=== PATIENT | male | born 1950 | race Caucasian/White ===

== ENCOUNTER 2016-07-18 16:50 | Emergency (ER) | payer OTHER, MEDICARE ==
[~2016-07-18] VITALS: Ht 180.3 cm; Wt 95.3 kg
[~2016-07-18 16:50] MED LIST: ACYCLOVIR400 M1 PO; ASPIRIN EC81 M1 PO; ATIVAN0.5 M1 PO; ATIVAN1 M1 PO; ATORVASTATIN CA20 M1 PO; AUGMENTIN 875-1 EACH PO; CALCIUM CARBON200 MG PO; CEPHALEXIN500 M3 PO; CHLORDIAZEPOXID25 M3 PO; COUMADIN4 M1 PO; COUMADIN5 M2 PO; COUMADIN6 M1 PO; DIFLUCAN100 M1 PO; DULOXETINE HCL60 MG PO; FOLIC ACID1 M1 PO; FUROSEMIDE20 M1 PO; GABAPENTIN300 M2 PO; HYDRALAZINE HCL25 M1 PO; HYDRALAZINE HCL50 M1 PO; IRON SUPPLEMEN325 MG PO; LEVEMIR100 UNIT/1 SC; LOSARTAN POTAS100 M1 PO; LOVENOX100 MG/1 M SC; LOVENOX80 MG/0.1 SC; MIRALAX119 GM PO; MORPHINE SULFAT30 M3 PO; NIFEDIPINE ER30 M2 PO; NITROGLYCERIN1 EACH TOP; OMEPRAZOLE20 M2 PO; OXYCODONE HCL15 M1 PO; ROXICODONE15 M1 PO; SENNA PLUS TAB1 EACH PO; SYMBICORT 16010.2 GM INH; TAMSULOSIN HCL0.4 M1 PO; TOPROL XL25 M1 PO; TRAZODONE HCL150 M1 PO; VENTOLIN HFA18 GM INH; VITAMIN B-1100 MG PO; VITAMIN D-32000 UNIT PO; VITAMIN E400 UNI1 PO; WARFARIN SODIUM1 M1 PO
--- NOTE | 2016-07-18 19:37 | ED GENERAL ADULT ---
History of Present Illness General Chief Complaint: Dyspnea (COPD, CHF, Other) Stated Complaint: BIBA FOR EXERTIONAL SOB SINCE MAY Source: patient Exam Limitations: no limitations Vital Signs & Intake/Output Vital Signs & Intake/Output Vital Signs Date Time Temp Pulse Resp B/P Pulse O2 O2 Flow FiO2 Ox Delivery Rate 07/19 1242 98.2 80 16 135/76 07/19 1026 91 140/92 07/19 1026 91 140/92 07/19 1026 91 140/92 07/19 1024 98.1 91 20 140/92 07/19 1024 98.1 91 20 140/92 98 Room Air Room Air 07/19 0824 97.4 84 15 162/104 07/19 0824 97.4 84 15 162/104 97 Room Air Room Air 07/19 0624 97.0 83 18 174/94 07/19 0619 97.0 86 18 174/94 98 Room Air 07/19 0246 99.3 97 20 160/100 07/19 0246 99.3 97 20 160/100 97 Room Air 07/19 0000 99.8 83 18 180/90 07/19 0000 99.8 83 18 180/90 97 Room Air 07/18 2147 98.4 89 18 198/96 07/18 2135 98.4 89 18 198/96 07/18 2135 97.8 89 18 198/96 97 Room Air 07/18 1930 196/94 07/18 1924 94 Room Air 07/18 1712 97.1 82 18 204/97 94 Room Air ED Intake and Output 07/19 0000 07/18 1200 Intake Total 0 Output Total Balance 0 Intake, Oral 0 Patient 210 lb Weight Allergies Coded Allergies: NO KNOWN ALLERGIES (06/07/16) Reconcile Medications Albuterol Sulfate (Ventolin Hfa) 90 MCG HFA.AER.AD 2 PUF INH Q4-6 PRN PRN COPD (Reported) Apixaban (Eliquis) 5 MG TABLET 1 TAB PO BID BLOOD THINNER (Reported) Aspirin (Ecotrin*) 81 MG TABLET.DR 1 TAB PO DAILY HEART/BLOOD (Reported) Atorvastatin Calcium 20 MG TABLET 1 TAB PO DAILY CHOLESTEROL (Reported) Budesonide/Formoterol Fumarate (Symbicort 160-4.5 Mcg Inhaler) 10.2 GM HFA.AER.AD 2 PUF INH BID RESPIRATORY (Reported) Calcium Carbonate 200 MG CALCIUM (500 MG) TAB.CHEW 500 MG PO DAILY High phosphorus level Cholecalciferol (Vitamin D3) (Vitamin D-3) 2,000 UNIT TABLET 1 TAB PO DAILY Supplement Duloxetine HCl 60 MG CAPSULE.DR 1 CAP PO QAM depression (Reported) Duloxetine Hydrochloride (Cymbalta) 30 MG CAPSULE.DR 1 CAP PO QPM DEPRESSION (Reported) Folic Acid 1 MG TABLET 1 TAB PO DAILY OTHER Gabapentin 300 MG CAPSULE 2 CAP PO TID NERVE PAIN (Reported) Hydralazine HCl 25 MG TABLET 1 TAB PO BID BP (Reported) Insulin Detemir (Levemir) 100 UNIT/ML VIAL 14 UNITS SC DAILY DM (Reported) Lorazepam 0.5 MG TABLET 1 TAB PO BID ANXIETY (Reported) Metoprolol Succ XL (Toprol XL) 25 MG TAB.ER.24H 1 TAB PO DAILY BP (Reported) Oxycodone HCl (Roxicodone) 15 MG TABLET 1 TAB PO Q4P PRN Severe pain Polyethylene Glycol 3350 (Miralax) 17 GRAM/DOSE POWDER 17 GM PO DAILY PRN CONSTIPATION Sennosides/Docusate Sodium (Senna Plus Tablet) 8.6 MG-50 MG TABLET 2 TAB PO DAILY PRN CONSTIPATION Sodium Bicarbonate 650 MG TABLET 1 TAB PO BID UNKNOWN (Reported) Tamsulosin HCl 0.4 MG CAP.ER.24H 1 CAP PO DAILY PROSTATE (Reported) Thiamine HCl (Vitamin B-1) 100 MG TABLET 1 TAB PO DAILY SUPPLEMENT (Reported) Trazodone HCl 150 MG TABLET 1 TAB PO QPM SLEEP Vitamin E (Dl,Tocopheryl Acet) (Vitamin E) 400 UNIT CAPSULE 2 CAP PO DAILY SUPPLEMENT (Reported) Triage Note: PT TO ER VIA AMBULANCE WITH COMPLAINTS OF INCREASED SOB, O2 SAT 94 % ON RA, DENIES CP. STATES THAT HE HAS HISTORY OF CHF. PT ALSO STATES HTAT HE IS OUT OF HIS PAIN MEDS AND HAS AN APPOINTMENT WITH SURGEON ON MONDAY. Triage Nurses Notes Reviewed? yes HPI: This patient is a 66 year old male with a past medical history including alcohol dependence, atrial fibrilation, and hyptertension who presented for a chief complaint of, "I ran out of my pain medication." The patient reported that he was taking 15mg of oxycodone for back pain, knee pain, and phantom leg pain. He reported that his medication is prescribed by his primary care physician as well has his doctor at [facility]. He reported that he was going to pain mangement in [place], but stated, "I don't want to go there anymore, so my doctor is trying to get me into pain mangement here." He reported that he ran out of medication 3 days ago. Also reported, "I went on a rainey last night and drank a lot of vodka." He reported he had alcohol withdrawal seizures several years ago. He reported nausea and one episode of vomiting yeaterday due to the drinking. He reported shaking today and requested Ativan. Patient also reported some shortness of breath, but reported, "I have CHF and all that so it's normal." Denied fevers, chills, chest pain, palpitations, jaw pain, arm pain, or any other associated symptoms. (EVER RODRIGUEZ PA-C) Past History Travel History Traveled to [place] past 21 day No Medical History Any Pertinent Medical History? 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 FH: diabetes mellitus FH: stroke FHx: prostate cancer PATERNAL GRANDMOTHER, ; Cause: Colon cancer. MOTHER, , Age 87; Cause: Old age. Hx Contributory? No (EVER RODRIGUEZ PA-C) Review of Systems Review of Systems Constitutional: Reports: no symptoms. EENTM: Reports: no symptoms. Respiratory: Reports: see HPI. Cardiovascular: Reports: no symptoms. GI: Reports: see HPI. Genitourinary: Reports: no symptoms. Musculoskeletal: Reports: see HPI. Skin: Reports: no symptoms. Neurological/Psychological: Reports: no symptoms. All Other Systems: Reviewed and Negative (EVER RODRIGUEZ PA-C) Physical Exam Physical Exam General Appearance: well developed/nourished, no apparent distress, alert, awake Comments: Well-developed well-nourished person in no acute distress HEENT: Normal EENT exam, head normocephalic, moist mucous membranes PERRLA bilaterally Neck: Supple, no lymphadenopathy Back: Normal inspection. No midline tenderness Cardiovascular: Irregularly Irregular. No murmurs Respiratory: Chest nontender. No respiratory distress. Scattered rhonchi at the bases. No wheezes or rales Abdomen: Soft, nontender and nondistended Extremity: Normal and equal pulses. Neuro: Alert oriented x3, cranial nerves II through XII grossly intact. Skin: No appreciable rash on exposed skin, skin is warm and dry. Psych: Mood and affect is normal (EVER RODRIGUEZ PA-C) Core Measures ACS in differential dx? No CVA/TIA Diagnosis: No Severe Sepsis Present: No Septic Shock Present: No ([place] ARCEO,WILBERT Gao) Progress Differential Diagnoses I considered the following diagnoses in my evaluation of the patient: [atrial fibrillation, ACS, PE, DVT, alcohol intoxication, alcohol withdrawal, drug overdose, drug withdrawal, CHF, copd] Plan of Care: Orders Procedure Date/time Status Regular Diet 07/19 B Active ED CRISIS PSYCH CONSULT 07/19 0315 Active Pathway - chart 07/18 2115 Active ETHANOL 07/18 1935 Complete CIWA 07/18 1922 Active URINE DRUGS OF ABUSE 07/18 1922 Complete TROPONIN LEVEL 07/18 1914 Complete MAGNESIUM 07/18 1914 Complete COMPREHENSIVE METABOLIC PANEL 07/18 1914 Complete CBC WITHOUT DIFFERENTIAL 07/18 1914 Complete B-TYPE NATRIURETIC PEP (BNP) 07/18 1914 Complete EKG 07/18 1652 Active Current Medications Sig/Avery Start time Last Medication Dose Stop Time Status Admin Lorazepam 0.5 MG ONCE 07/23 0000 AC (Ativan) 07/23 0001 Lorazepam 0.5 MG Q6H 07/22 0000 AC (Ativan) 07/22 1801 Lorazepam 0.5 MG ONCE ONE 07/21 1800 AC (Ativan) 07/21 1801 Lorazepam 1 MG Q6H 07/21 0000 AC (Ativan) 07/21 1201 Lorazepam 1.5 MG Q12H 07/20 0600 AC (Ativan) 07/20 1801 Lorazepam 1 MG Q12H 07/20 0000 AC (Ativan) 07/20 1201 Lorazepam 2 MG Q2P PRN 07/18 2129 AC (Ativan) Lorazepam 1 MG Q2P PRN 07/18 2129 AC (Ativan) Laboratory Tests 07/19/16 0105: Urine Opiates Screen < 100.00, Methadone Screen 49, Barbiturate Screen < 60, Ur Phencyclidine Scrn < 6.00, Amphetamines Screen < 100, U Benzodiazepines Scrn < 85, Urine Cocaine Screen < 50, Urine Cannabis Screen < 5.00 07/18/16 193: Anion Gap 16, Estimated GFR 41 L, BUN/Creatinine Ratio 15.9, Glucose 110 H, Calcium 9.9, Magnesium 1.7, Total Bilirubin 0.9, AST 21, ALT 15 L, Alkaline Phosphatase 87, Troponin I 0.03, Zch-W-[place] Pept 5160 H, Total Protein 7.6, Albumin 4.4, Globulin 3.2, Albumin/Globulin Ratio 1.4, CBC w Diff NO MAN DIFF REQ, RBC 3.99 L, MCV 92.0, MCH 31.3 H, RDW 18.9 H, MPV 7.0 L, Gran % 88.5 H, Lymphocytes % 6.9 L, Monocytes % 4.1, Eosinophils % 0.3, Basophils % 0.2, Absolute Granulocytes 8.7 H, Absolute Lymphocytes 0.7 L, Absolute Monocytes 0.4, Absolute Eosinophils 0, Absolute Basophils 0, PUBS MCHC 34.0, Serum Alcohol 10.0 07/18/16 192: Serum Alcohol Cancelled Diagnostic Imaging: Viewed by Me: Radiology Read. Discussed w/RAD: Radiology Read. CXR Impression: PATIENT: BRANDYN BORDEN PRESENT AGE: 66 PATIENT ACCOUNT NO: [id number] : 51 LOCATION: [facility] ORDERING PHYSICIAN: EVER RODRIGUEZ PA-C SERVICE DATE: 07/18/16 EXAM TYPE: RAD - XRY-CHEST XRAY, PA AND LATERAL EXAMINATION: XR CHEST CLINICAL INFORMATION: Rule out cardiomegaly COMPARISON: 05/04/2016 TECHNIQUE: AP and lateral views of the chest were obtained. Of note, the right side of the chest is incorrectly marked as the left on these images. FINDINGS: Cardiac silhouette is enlarged, unchanged. Sternal wires and changes of a mitral valve angioplasty overlie the cardiac mediastinal contour. Pulmonary vasculature is normal. Lungs are clear. No pleural effusion or pneumothorax. Moderate degenerative spondylosis is present in the thoracic spine. IMPRESSION: Cardiomegaly. No pulmonary edema. No acute findings. DICTATED BY: ELLE QUEEN MD DATE/TIME DICTATED:07/18/162020 QUALITY CONTROL TESTER:JENELLE DATE/TIME TRANSCRIBED:07/18/162020 CONFIDENTIAL, DO NOT COPY WITHOUT APPROPRIATE AUTHORIZATION. <Electronically signed in Other Vendor System> SIGNED BY: ELLE QUEEN MD 07/18/162026 Initial ED EKG: AFIB, no ST T wave changes, 97 bpm Comments: 07/18/2016 9:17:14 PM: The patient is requesting alcohol detox. We'll put in a [facility] protocol to monitor this patient overnight. Explained to the patient multiple times that I would be unable to fill his prescription for oxycodone 15 mg as he was prescribed 100 tablets of oxycodone 15 mg by his provider on 2016; if he was taking them as directed, every 4 hours, 6 pills a day, he should still have medication left over, so we will not be prescribing him any narcotics to go home with. He will see crisis in the morning to be set up with IOP. Does not meet criteria for alcohol withdrawal admission. (EVER RODRIGUEZ PA-C) Hand-Off Endorsed To: SHORTY LIEBERMAN MD Endorsed Time: 0700 Pending: consult (WILBERT LEGER MD) Comments: Patient declines need for alcohol detox and will be discharged home (SHORTY LIEBERMAN MD) Departure Departure Condition: Stable Referrals: ZARINA SIMPSON MD (PCP/Family) Departure Forms: Customer Survey General Discharge Information (EVER RODRIGUEZ PA-C) Departure Time of Disposition: 1423 Disposition: HOME OR SELF CARE Clinical Impression Primary Impression: Alcohol use disorder (SHORTY LIEBERMAN MD) Critical Care Note Critical Care Note Critical Care Time: non-applicable (WILBERT LEGER MD) ED Attending Observation Initial Observation Note: I have seen and personally examined BRANDYN BORDEN on 07/18/16 at 1950. I agree with the current emergency department documentation. The disposition (admission or discharge) is uncertain at this time, he needs a period of observation for the following reason(s): The ED Nurse caring for this patient has been personally informed as to what the patient is being observed for. (JENNIFER DUVALL,EVER)
[2016-07-18 19:53] LABS: ABSOLUTE BASOPHIL COUNT 0 /CUMM (0.0-0.2); ABSOLUTE EOSINOPHIL COUNT 0 /CUMM (0.0-0.7); ABSOLUTE GRANULOCYTE CT 8.7 /CUMM (1.4-6.5); ABSOLUTE LYMPH COUNT 0.7 /CUMM (1.2-3.4); ABSOLUTE MONOCYTE COUNT 0.4 /CUMM (0.10-0.60); BASOPHIL % 0.2 % (0.0-2.0); EOSINOPHIL % 0.3 % (0-5); HEMATOCRIT 36.7 % (42-52); MEAN CORPUSCULAR HGB 31.3 PG (27.0-31.0); PLATELET COUNT 198 /CUMM (130-400); RBC DISTRIBUTION WIDTH 18.9 % (11.5-14.5); RED BLOOD CELL CT 3.99 /CUMM (4.70-6.10); WHITE BLOOD CELL COUNT 9.8 /CUMM (4.8-10.8)
[2016-07-18 19:54] LABS: GRANULOCYTE % 88.5 % (42.2-75.2)
[2016-07-18] MEDS ORDERED: HYDRALAZINE HCL25 M1 PO (20:23)
[2016-07-18] MEDS ORDERED: LEVEMIR100 UNIT/1 SC (20:23)
[2016-07-18] MEDS ORDERED: ELIQUIS5 M1 PO (20:25)
[2016-07-18] MEDS ORDERED: LORAZEPAM0.5 M1 PO (20:26)
[2016-07-18] MEDS ORDERED: VITAMIN B-1100 MG PO (20:26)
[2016-07-18] MEDS ORDERED: SODIUM BICARBO650 M1 PO (20:27)
--- NOTE | 2016-07-18 20:27 | RADIOLOGY REPORT ---
EXAMINATION: XR CHEST CLINICAL INFORMATION: Rule out cardiomegaly COMPARISON: 05/04/2016 TECHNIQUE: AP and lateral views of the chest were obtained. Of note, the right side of the chest is incorrectly marked as the left on these images. FINDINGS: Cardiac silhouette is enlarged, unchanged. Sternal wires and changes of a mitral valve angioplasty overlie the cardiac mediastinal contour. Pulmonary vasculature is normal. Lungs are clear. No pleural effusion or pneumothorax. Moderate degenerative spondylosis is present in the thoracic spine. IMPRESSION: Cardiomegaly. No pulmonary edema. No acute findings.
[2016-07-18] MEDS ORDERED: CYMBALTA30 M1 PO (20:28)
[2016-07-19 14:33] VITALS: BP 144/80
== END 2016-07-19 15:20 ==
LOC: ERH 16:50
PROVIDERS: Physician Assistant
DX: F10.10 Alcohol abuse, uncomplicated (principal); I50.9 Heart failure, unspecified; I48.91 Unspecified atrial fibrillation; J44.9 Chronic obstructive pulmonary disease, unspecified; N18.9 Chronic kidney disease, unspecified; E11.9 Type 2 diabetes mellitus without complications
CPT/HCPCS: 80307; 93005; 93010; 96372; G0480; J3490

== ENCOUNTER 2016-07-20 08:30 | Emergency (ER) | payer OTHER, MEDICARE ==
[~2016-07-20] VITALS: Ht 180.3 cm; Wt 95.3 kg
[~2016-07-20 08:30] MED LIST changes: +CYMBALTA30 M1 PO; +ELIQUIS5 M1 PO; +LORAZEPAM0.5 M1 PO; +SODIUM BICARBO650 M1 PO
--- NOTE | 2016-07-20 08:44 | ED GENERAL ADULT ---
History of Present Illness General Chief Complaint: Foot or Ankle Injury Stated Complaint: BIBA FOR SKIN TEAR ON R FOOT Source: patient, old records Exam Limitations: no limitations Vital Signs & Intake/Output Vital Signs & Intake/Output Vital Signs Date Time Temp Pulse Resp B/P Pulse O2 O2 Flow FiO2 Ox Delivery Rate 07/20 0846 100 Room Air 07/20 0843 96.6 94 18 187/108 100 Room Air Allergies Coded Allergies: NO KNOWN ALLERGIES (06/07/16) Reconcile Medications Albuterol Sulfate (Ventolin Hfa) 90 MCG HFA.AER.AD 2 PUF INH Q4-6 PRN PRN COPD (Reported) Apixaban (Eliquis) 5 MG TABLET 1 TAB PO BID BLOOD THINNER (Reported) Aspirin (Ecotrin*) 81 MG TABLET.DR 1 TAB PO DAILY HEART/BLOOD (Reported) Atorvastatin Calcium 20 MG TABLET 1 TAB PO DAILY CHOLESTEROL (Reported) Budesonide/Formoterol Fumarate (Symbicort 160-4.5 Mcg Inhaler) 10.2 GM HFA.AER.AD 2 PUF INH BID RESPIRATORY (Reported) Calcium Carbonate 200 MG CALCIUM (500 MG) TAB.CHEW 500 MG PO DAILY High phosphorus level Cholecalciferol (Vitamin D3) (Vitamin D-3) 2,000 UNIT TABLET 1 TAB PO DAILY Supplement Duloxetine HCl 60 MG CAPSULE.DR 1 CAP PO QAM depression (Reported) Duloxetine Hydrochloride (Cymbalta) 30 MG CAPSULE.DR 1 CAP PO QPM DEPRESSION (Reported) Folic Acid 1 MG TABLET 1 TAB PO DAILY OTHER Gabapentin 300 MG CAPSULE 2 CAP PO TID NERVE PAIN (Reported) Hydralazine HCl 25 MG TABLET 1 TAB PO BID BP (Reported) Insulin Detemir (Levemir) 100 UNIT/ML VIAL 14 UNITS SC DAILY DM (Reported) Lorazepam 0.5 MG TABLET 1 TAB PO BID ANXIETY (Reported) Metoprolol Succ XL (Toprol XL) 25 MG TAB.ER.24H 1 TAB PO DAILY BP (Reported) Oxycodone HCl (Roxicodone) 15 MG TABLET 1 TAB PO Q4P PRN Severe pain Polyethylene Glycol 3350 (Miralax) 17 GRAM/DOSE POWDER 17 GM PO DAILY PRN CONSTIPATION Sennosides/Docusate Sodium (Senna Plus Tablet) 8.6 MG-50 MG TABLET 2 TAB PO DAILY PRN CONSTIPATION Sodium Bicarbonate 650 MG TABLET 1 TAB PO BID UNKNOWN (Reported) Tamsulosin HCl 0.4 MG CAP.ER.24H 1 CAP PO DAILY PROSTATE (Reported) Thiamine HCl (Vitamin B-1) 100 MG TABLET 1 TAB PO DAILY SUPPLEMENT (Reported) Trazodone HCl 150 MG TABLET 1 TAB PO QPM SLEEP Vitamin E (Dl,Tocopheryl Acet) (Vitamin E) 400 UNIT CAPSULE 2 CAP PO DAILY SUPPLEMENT (Reported) Triage Nurses Notes Reviewed? yes Onset: Just prior to arrival Duration: hour(s): (2) Timing: remote history Injury Environment: home Severity: mild No Modifying Factors: none HPI: Patient is a 66-year-old male with history of COPD, alcohol abuse and dependence presenting to the emergency department she complaining of laceration to the bottom of his right foot. Patient reports that he thinks it may have happened during a transfer last night. Denies any pain as he has chronic peripheral neuropathy. Last drink of alcohol was this morning around 5 AM. Patient does not want detox. Denies any suicidal or homicidal ideation. Denies any nausea vomiting fevers or chills chest pain or shortness of breath. He does report he feels very anxious and is requesting Ativan. Patient was seen in this emergency department yesterday for shortness of breath. Denying shortness of breath at this time. Denies being on any blood thinners. (EMMIE OBREGON,MIKI) Past History Travel History Traveled to [place] past 21 day No Medical History Any Pertinent Medical History? 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 FH: diabetes mellitus FH: stroke FHx: prostate cancer PATERNAL GRANDMOTHER, ; Cause: Colon cancer. MOTHER, , Age 87; Cause: Old age. Hx Contributory? No (MIKI LEHMAN) Review of Systems Review of Systems Constitutional: Reports: no symptoms. Comments Review of systems: See HPI, All other systems negative. Constitutional, no chills fever or weight loss HEENT: No visual changes no sore throat no congestion Cardiovascular: No chest pain ,palpitation Skin, no jaundice Respiratory: No dyspnea cough sputum or hemoptysis GI: No nausea no vomiting : No dysuria No hematuria Muscle skeletal: no back pain, no neck pain, Neurologic: No numbness no confusion Psych: No stress anxiety Immunology: No splenectomy or history of AIDS (MIKI LEHMAN) Physical Exam Physical Exam General Appearance: well developed/nourished, no apparent distress, alert, awake , comfortable Comments: Well-developed well-nourished person in no acute distress HEENT: Pupils equally round and reactive to light and accommodation. Nose is atraumatic. Neck: Normal inspection Back: Nontender Cardiovascular: Regular rate and rhythms no murmurs rubs or gallops, normal JVP Respiratory: Chest nontender. No respiratory distress.breath sounds clear to auscultation bilaterally Extremity: No edema, no calf tenderness to palpation on the right, left below the knee amputation present, pulses on the right lower extremity are 2+. Neuro: Alert oriented x3, motor sensory normal, cranial nerves II through XII grossly intact. Skin: Flap-like laceration approximately 8 cm in size, NO ACTIVE BLEEDING Psych: Mood and affect is normal, memory and judgment is normal. Core Measures ACS in differential dx? No CVA/TIA Diagnosis: No Severe Sepsis Present: No Septic Shock Present: No (MIKI LEHMAN) Progress Differential Diagnoses I considered the following diagnoses in my evaluation of the patient: Laceration, abrasion, hypertension, contusion, skin tear Plan of Care: Orders Procedure Date/time Status Consistent Carbohydrate 3 07/20 L Active HIV EXPOSURE/NEEDLESTICK 07/20 1018 Active HEPT C ANTIBODY 07/20 1018 Active HEPT B SURFACE ANTIGEN 07/20 1018 Active TRNSFRASE ASPART AMINO 07/20 1018 Active TRNSFRAS ALANINE AMINO 07/20 1018 Active Current Medications Sig/Avery Start time Last Medication Dose Stop Time Status Admin Lorazepam 1 MG ONCE ONE 07/20 899 CAN (Ativan) 07/20 09 Initial ED EKG: none Comments: Patient given IM Ativan on arrival for anxiety. Patient does not want alcohol withdrawal. He has an appointment today. Patient requesting breakfast. Wound was sutured, he'll return in the next 4-5 days. For wound check. Educated and elevating it and keeping it well-padded. 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 (MIKI LEHMAN) Departure Departure Time of Disposition: 1005 Disposition: HOME OR SELF CARE Condition: Stable Clinical Impression Primary Impression: Laceration Secondary Impressions: Hypertension Qualifiers: Hypertension type: essential hypertension Qualified Code: I10 - Essential (primary) hypertension Referrals: ZARINA SIMPSON MD (PCP/Family) Additional Instructions: Return in 4-5 days for wound check. Keep elevated slashes possible. Change dressing daily. Keep clean and dry. Return for any worsening symptoms or concerns. FOLLOW UP WITH primary care physician regarding blood pressure as well. Departure Forms: Customer Survey General Discharge Information (MIKI LEHMAN) PA/CASE MAKER Co-Sign Statement Statement: ED Attending supervision documentation- x I saw and evaluated the patient. I have also reviewed all the pertinent lab results and diagnostic results. I agree with the findings and the plan of care as documented in the PA's/CASE MAKER's documentation. [] I have reviewed the ED Record and agree with the PA's/CASE MAKER's documentation. [] Additions or exceptions (if any) to the PAs/CASE MAKER's note and plan are summarized below: [] (LUISANA ARCEO,SHORTY) Procedures Laceration/Wound Repair Laceration/Wound Repair: Wound Location: lower extremity (RIGHT FOOT) Wound's Depth, Shape: FLAP Wound Length (cm): 8 Wound Explored: clean, no foreign body removed, irrigated extensively Irrigated w/ Saline (ccs): 2000 Betadine Prep? Yes Anesthesia: 1% lidocaine Volume Anesthetic (ccs): 5 Wound Debrided: minimal Wound Repaired With: sutures Suture Size/Type: 4:0, nylon Number of Sutures: 14 Layer Closure? No Tetanus Status: up to date (2010) Progress: PERFORMED BY PA STUDENT KATIE. TOERLATED PROCEDURE WELL. (EMMIE OBREGON,MIKI) Critical Care Note Critical Care Note Critical Care Time: non-applicable (EMMIE OBREGON,MIKI)
[2016-07-20 11:20] VITALS: BP 161/90
== END 2016-07-20 11:26 ==
LOC: ERH 08:30
DX: S91.311A Laceration without foreign body, right foot, initial encounter (principal); I10 Essential (primary) hypertension; F10.10 Alcohol abuse, uncomplicated; F41.9 Anxiety disorder, unspecified; X58.XXXA Exposure to other specified factors, initial encounter
CPT/HCPCS: 86803; 87389; 96372

== ENCOUNTER 2016-07-24 15:30 | Emergency (ER) | payer OTHER, MEDICARE ==
[~2016-07-24] VITALS: Ht 180.3 cm; Wt 95.3 kg
--- NOTE | 2016-07-24 17:04 | ED UPPER/LOWER EXTREMITY COMPL ---
History of Present Illness General Chief Complaint: Suture Removal/Wound Recheck Stated Complaint: STITCHES PROBLEM Source: patient, old records Exam Limitations: no limitations Vital Signs & Intake/Output Vital Signs & Intake/Output Vital Signs Date Time Temp Pulse Resp B/P Pulse O2 O2 Flow FiO2 Ox Delivery Rate 07/24 1731 96.8 88 18 116/68 95 Room Air 07/24 1537 97.2 98 18 138/84 95 Room Air Allergies Coded Allergies: NO KNOWN ALLERGIES (06/07/16) Reconcile Medications Albuterol Sulfate (Ventolin Hfa) 90 MCG HFA.AER.AD 2 PUF INH Q4-6 PRN PRN COPD (Reported) Apixaban (Eliquis) 5 MG TABLET 1 TAB PO BID BLOOD THINNER (Reported) Aspirin (Ecotrin*) 81 MG TABLET.DR 1 TAB PO DAILY HEART/BLOOD (Reported) Atorvastatin Calcium 20 MG TABLET 1 TAB PO DAILY CHOLESTEROL (Reported) Budesonide/Formoterol Fumarate (Symbicort 160-4.5 Mcg Inhaler) 10.2 GM HFA.AER.AD 2 PUF INH BID RESPIRATORY (Reported) Calcium Carbonate 200 MG CALCIUM (500 MG) TAB.CHEW 500 MG PO DAILY High phosphorus level Cholecalciferol (Vitamin D3) (Vitamin D-3) 2,000 UNIT TABLET 1 TAB PO DAILY Supplement Duloxetine HCl 60 MG CAPSULE.DR 1 CAP PO QAM depression (Reported) Duloxetine Hydrochloride (Cymbalta) 30 MG CAPSULE.DR 1 CAP PO QPM DEPRESSION (Reported) Folic Acid 1 MG TABLET 1 TAB PO DAILY OTHER Gabapentin 300 MG CAPSULE 2 CAP PO TID NERVE PAIN (Reported) Hydralazine HCl 25 MG TABLET 1 TAB PO BID BP (Reported) Insulin Detemir (Levemir) 100 UNIT/ML VIAL 14 UNITS SC DAILY DM (Reported) Lorazepam 0.5 MG TABLET 1 TAB PO BID ANXIETY (Reported) Metoprolol Succ XL (Toprol XL) 25 MG TAB.ER.24H 1 TAB PO DAILY BP (Reported) Oxycodone HCl (Roxicodone) 15 MG TABLET 1 TAB PO Q4P PRN Severe pain Polyethylene Glycol 3350 (Miralax) 17 GRAM/DOSE POWDER 17 GM PO DAILY PRN CONSTIPATION Sennosides/Docusate Sodium (Senna Plus Tablet) 8.6 MG-50 MG TABLET 2 TAB PO DAILY PRN CONSTIPATION Sodium Bicarbonate 650 MG TABLET 1 TAB PO BID UNKNOWN (Reported) Tamsulosin HCl 0.4 MG CAP.ER.24H 1 CAP PO DAILY PROSTATE (Reported) Thiamine HCl (Vitamin B-1) 100 MG TABLET 1 TAB PO DAILY SUPPLEMENT (Reported) Trazodone HCl 150 MG TABLET 1 TAB PO QPM SLEEP Vitamin E (Dl,Tocopheryl Acet) (Vitamin E) 400 UNIT CAPSULE 2 CAP PO DAILY SUPPLEMENT (Reported) Triage Note: PT TO ER FOR WOUND CHECK OF RIGHT FOOT, HAD SUTURES PLACED ?MONDAY. STATES THE SKIN AROUND THE SUTURES HAS TORN AND NOW THERE IS A "FLAP OF SKIN". Triage Nurses Notes Reviewed? yes HPI: 66-year-old male diabetic with peripheral vascular disease, left below-knee amputation history a few months ago, presents with complaints of problem with the bottom of his right foot. 4 days ago he stepped out of bed and noticed that the skin of his right foot had sloughed off he came in here for evaluation. The wound was repaired with sutures and patient was discharged home. Today he noted that the skin has torn free from the sutures at the bottom of the foot. He also notes that the lower leg and foot is red and swollen. He has no pain as he has neuropathy. He denies any fever or flulike illness. He states his blood sugar was 1:30 this morning. He has a visiting nurse that changes his dressings several times per week. (COOPER SEPULVEDA) Past History Travel History Traveled to [place] past 21 day No Medical History Any Pertinent Medical History? see below for history Neurological: delerium tremens EENT: sinusitis Cardiovascular: AFIB, CHF, hypertension, mitral regurgitation, endocarditis Staph aureus endocarditis Respiratory: COPD Gastrointestinal: GERD, Diarrhea, nausea Hepatic: hepatitis C Renal: chronic kidney disease, B/L renal cysts Musculoskeletal: degen joint disease, CHRONIC BACK PAIN L FOOT NONHEALING WOUND Psychiatric: alcohol dependence, anxiety Endocrine: diabetes Blood Disorders: anemia, Waldenstrohm's macroglobulinemia Cancer(s): colon/rectal cancer (operated), prostate cancer (treated), WALDENSTROM LYMPHOMA [employer]OM[employer] 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 FH: diabetes mellitus FH: stroke FHx: prostate cancer PATERNAL GRANDMOTHER, ; Cause: Colon cancer. MOTHER, , Age 87; Cause: Old age. Hx Contributory? No (COOPER SEPULVEDA) Review of Systems Review of Systems Constitutional: Reports: see HPI. EENTM: Reports: no symptoms. Respiratory: Reports: no symptoms. Cardiovascular: Reports: no symptoms. Gastrointestinal/Abdominal: Reports: no symptoms. Genitourinary: Reports: no symptoms. Musculoskeletal: Reports: no symptoms. Skin: Reports: see HPI. Neurological/Psychological: Reports: no symptoms. Hematologic/Endocrine: Reports: no symptoms. Immunological: Reports: no symptoms. All Other Systems: Reviewed and Negative (COOPER SEPULVEDA) Physical Exam Physical Exam General Appearance: well developed/nourished Comments: HEENT: Atraumatic, extraocular motion intact Neck: Supple, no lymphadenopathy Back: Nontender Respiratory: No respiratory distress Extremities: Left below-knee amputation Right lower leg, right foot dorsum at the base of the first metatarsal the sutures have remained in the skin however the flap of skin that was sewn down has sloughed off. There is small amount of serous/purulent discharge noted on the dressing. There is a darkish discoloration at the base of the fifth metatarsal that is approximately 3 cm by 4 cm suggestive of possible deep space infection or necrosis. The medial foot, ankle and lower leg is mild to moderately swollen and erythematous and warm to touch. Patient wiggles all toes, he has capillary refill, he has very limited sensation due to his neuropathy. Neuro: Alert and oriented x3 Psych: Mood affect normal, normal memory normal judgment. Skin: Warm and dry, no rash on exposed skin (COOPER SEPULVEDA) Progress Differential Diagnosis: arterial insufficiency, cellulitis, CHF, compartment syndrome, contusion, dislocation, DVT, fracture, gout, septic arthritis, sprain, tendon injury Plan of Care: Current Medications Sig/Avery Start time Last Medication Dose Stop Time Status Admin Ampicillin Sodium/ 1,500 MG ONCE ONE 07/24 1714 AC Sulbactam Sodium 07/24 1715 (Unasyn) Comments: The right foot wound tissue was debridement and all sutures were removed. There is a darkish discoloration at the base of the wound at the base of the fifth metatarsal area and concern for deep space infection or osteomyelitis at the base of the fifth metatarsal. The wound was cleansed and Xeroform and Telfa dressing was applied and a wrap was applied. I have recommended that the patient be admitted to the hospital, we obtained labs blood cultures and wound care consult with Dr. Abraham, likely x-ray here and MRI in the morning to evaluate for osteomyelitis of the foot or deep space infection at the base of the fifth metatarsal. He clearly has a cellulitis going on as well and given his chronic comorbidities and diabetes, he is a poor candidate for outpatient treatment. He declined to be admission, stating that he would rather go home tonight and get his affairs in order and return tomorrow morning for further testing and admission. He states that since is getting dark is not drive in the dark and would like to be discharged at this time. I have convinced him to receive 1 dose of IM antibiotics prior to his leaving and he has agreed to this. He will require a septic workup tomorrow morning upon his return. He understands it is dangerous to his health if he is to go home tonight and did not receive proper care that was recommended. (COOPER SEPULVEDA) Departure Departure Disposition: HOME OR SELF CARE Condition: Stable Clinical Impression Primary Impression: Cellulitis of foot without toes, right Secondary Impressions: Cellulitis of leg, right Referrals: TATIANA ARCEO,ZARINA (PCP/Family) Additional Instructions: It was advised that you stay in the hospital overnight for IV antibiotics and further treatment of your foot infection and likely getting an MRI tomorrow to make sure there is not a deep infection in the foot. Please return tomorrow for reevaluation and admission to the hospital. Return to the hospital overnight if you start spiking fevers, have flulike illness, nausea or vomiting. Departure Forms: Customer Survey General Discharge Information (COOPER SEPULVEDA) PA/LENS CEMENTER Co-Sign Statement Statement: ED Attending supervision documentation- x I saw and evaluated the patient. I have also reviewed all the pertinent lab results and diagnostic results. I agree with the findings and the plan of care as documented in the PA's/LENS CEMENTER's documentation. [] I have reviewed the ED Record and agree with the PA's/LENS CEMENTER's documentation. [] Additions or exceptions (if any) to the PAs/LENS CEMENTER's note and plan are summarized below: [] (LUISANA ARCEO,SHORTY)
[2016-07-24 17:31] VITALS: BP 116/68
[2016-07-25] MEDS ORDERED: PERCOCET 5-3251 EACH PO ×2 (10:47→12:33)
[2016-07-25] MEDS ORDERED: MORPHINE SULFAT15 M3 PO (14:49)
== END 2016-07-24 18:03 ==
LOC: ERH 15:30
DX: L03.115 Cellulitis of right lower limb (principal)
CPT/HCPCS: 96372

== ENCOUNTER 2016-07-25 07:43 | Inpatient (IN) | payer OTHER, MEDICARE ==
[~2016-07-25] VITALS: Ht 180.3 cm; Wt 95.3 kg
--- NOTE | 2016-07-25 07:56 | NUR ---
PT STATES THAT HE WAS SEEN HERE YESTERDAY FOR R FOOT INFECTION AND PA WANTED TO SDMIT HIM, PT STATES THAT HE HAD A LOT OF THINGS TO DO SO HE COULDN'T STAY. PT RETURNS TODAY FOR ADMISSION. PT IS L BELOW THE KNEE AMPUATATION AND STATES THAT HE WAS HERE LAST WEEK DUE TO CUT TO THE BOTTOM OF HIS R FOOT, AREA WAS SUTURED .
--- NOTE | 2016-07-25 08:22 | ED UPPER/LOWER EXTREMITY COMPL ---
History of Present Illness General Chief Complaint: Foot or Ankle Injury Stated Complaint: PT STATES HERE FOR ADMISSION FOR R WOUND TO Source: patient, old records Exam Limitations: no limitations Vital Signs & Intake/Output Vital Signs & Intake/Output Vital Signs Date Time Temp Pulse Resp B/P Pulse O2 O2 Flow FiO2 Ox Delivery Rate 07/25 1940 Room Air Room Air 07/25 1836 97.6 73 18 122/60 95 Room Air 07/25 1806 97.8 73 18 119/76 96 Room Air 07/25 1539 98.4 104 18 106/69 92 Room Air 07/25 1348 71 18 101/578 95 Room Air 07/25 1213 98.3 71 18 116/64 4 Room Air 07/25 1000 98.7 56 20 109/67 96 Room Air 07/25 0930 96 Room Air 07/25 0753 97.8 96 18 145/79 94 Room Air Allergies Coded Allergies: NO KNOWN ALLERGIES (06/07/16) Reconcile Medications Albuterol Sulfate (Ventolin Hfa) 90 MCG HFA.AER.AD 2 PUF INH Q4-6 PRN PRN COPD (Reported) Apixaban (Eliquis) 5 MG TABLET 1 TAB PO BID BLOOD THINNER (Reported) Aspirin (Ecotrin*) 81 MG TABLET.DR 1 TAB PO DAILY HEART/BLOOD (Reported) Atorvastatin Calcium 20 MG TABLET 1 TAB PO DAILY CHOLESTEROL (Reported) Budesonide/Formoterol Fumarate (Symbicort 160-4.5 Mcg Inhaler) 10.2 GM HFA.AER.AD 2 PUF INH BID RESPIRATORY (Reported) Calcium Carbonate 200 MG CALCIUM (500 MG) TAB.CHEW 500 MG PO DAILY High phosphorus level Cholecalciferol (Vitamin D3) (Vitamin D-3) 2,000 UNIT TABLET 1 TAB PO DAILY Supplement Duloxetine HCl 60 MG CAPSULE.DR 1 CAP PO QAM depression (Reported) Duloxetine Hydrochloride (Cymbalta) 30 MG CAPSULE.DR 1 CAP PO QPM DEPRESSION (Reported) Folic Acid 1 MG TABLET 1 TAB PO DAILY OTHER Gabapentin 300 MG CAPSULE 2 CAP PO TID NERVE PAIN (Reported) Hydralazine HCl 25 MG TABLET 1 TAB PO BID BP (Reported) Insulin Detemir (Levemir) 100 UNIT/ML VIAL 14 UNITS SC DAILY DM (Reported) Lorazepam 0.5 MG TABLET 1 TAB PO BID ANXIETY (Reported) Metoprolol Succ XL (Toprol XL) 25 MG TAB.ER.24H 1 TAB PO DAILY BP (Reported) Morphine Sulfate (Morphine Sulfate ER) 15 MG TABLET.ER 1 TAB PO BIDP PAIN ( Reported) Oxycodone HCl (Roxicodone) 15 MG TABLET 1 TAB PO Q4P PRN Severe pain Polyethylene Glycol 3350 (Miralax) 17 GRAM/DOSE POWDER 17 GM PO DAILY PRN CONSTIPATION Sennosides/Docusate Sodium (Senna Plus Tablet) 8.6 MG-50 MG TABLET 2 TAB PO DAILY PRN CONSTIPATION Sodium Bicarbonate 650 MG TABLET 1 TAB PO BID UNKNOWN (Reported) Tamsulosin HCl 0.4 MG CAP.ER.24H 1 CAP PO DAILY PROSTATE (Reported) Thiamine HCl (Vitamin B-1) 100 MG TABLET 1 TAB PO DAILY SUPPLEMENT (Reported) Trazodone HCl 150 MG TABLET 1 TAB PO QPM SLEEP Vitamin E (Dl,Tocopheryl Acet) (Vitamin E) 400 UNIT CAPSULE 2 CAP PO DAILY SUPPLEMENT (Reported) Triage Note: PT STATES THAT HE WAS SEEN HERE YESTERDAY FOR R FOOT INFECTION AND PA WANTED TO SDMIT HIM, PT STATES THAT HE HAD A LOT OF THINGS TO DO SO HE COULDN'T STAY. PT RETURNS TODAY FOR ADMISSION. PT IS L BELOW THE KNEE AMPUATATION AND STATES THAT HE WAS HERE LAST WEEK DUE TO CUT TO THE BOTTOM OF HIS R FOOT, AREA WAS SUTURED . Triage Nurses Notes Reviewed? yes Onset: Gradual Duration: getting worse Timing: recent history Severity: moderate Severity Numbers: 5 HPI: Patient is a 66-year-old MALE with a past medical history significant for remote IV drug abuse, history of hepatitis C status post treatment, atrial fibrillation on ELIQUIS, history of chronic back pain and opioid dependence, type 2 diabetes mellitus on insulin, hypertension, hyperlipidemia, pulmonary hypertension, history of prostrate cancer status post treatment, chronic kidney disease stage IIIB, chronic anemia, alcohol abuse, history of alcohol withdrawal seizures, GI bleed, diastolic heart failure, mitral valve repair, infective endocarditis, MRSA bacteremia, and candidemia who presents to emergency room noting from old records that patient presents to the emergency room on generally 2015 for concerns of a right foot laceration which patient had #14 sutures repaired patient return 4 days later yesterday for concerns of infection to the wound site of the right foot sutures removed patient was strongly advised to be admitted for concerns of cellulitis and concerns of osteomyelitis however patient refused admission and left AGAINST MEDICAL ADVICE. Patient returns today for request of admission for concerns of right foot infection. Denies any fever chills. Denies any foot pain. (SHIRA BARBER) Past History Travel History Traveled to [place] past 21 day No Medical History Any Pertinent Medical History? 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 FH: diabetes mellitus FH: stroke FHx: prostate cancer PATERNAL GRANDMOTHER, ; Cause: Colon cancer. MOTHER, , Age 87; Cause: Old age. Hx Contributory? No (SHIRA BARBER) Review of Systems Review of Systems Constitutional: Reports: no symptoms. EENTM: Reports: no symptoms. Respiratory: Reports: no symptoms. Cardiovascular: Reports: no symptoms. Gastrointestinal/Abdominal: Reports: no symptoms. Genitourinary: Reports: no symptoms. Musculoskeletal: Reports: see HPI. Skin: Reports: see HPI, erythema. Neurological/Psychological: Reports: no symptoms. Hematologic/Endocrine: Reports: no symptoms. Immunological: Reports: no symptoms. All Other Systems: Reviewed and Negative (SHIRA BARBER) Physical Exam Physical Exam General Appearance: no apparent distress, alert, comfortable Peripheral Pulses: 2+ radial (R), 2+ dorsalis pedis (R) Neurologic/Tendon: normal motor functions, normal tendon functions, responds to pain, no evidence tendon injury, no pulse deficit Skin: warm/dry Comments: Well-developed well-nourished person in no acute distress HEENT: Normal EENT exam, Neck: Supple, no lymphadenopathy, normal range of motion without pain or tenderness Back: Nontender, no CVA tenderness. Cardiovascular: IRRegular rate and rhythms no murmurs rubs or gallops, normal JVP Respiratory: Chest nontender. No respiratory distress.breath sounds clear to auscultation bilaterally Abdomen: Soft, nontender nondistended, no appreciable organomegaly. Normal bowel sounds. No ascites Extremity: No edema, no calf tenderness to palpation, normal and equal pulses. Left [id number] amputation Neuro: Alert oriented x3, motor sensory normal, Skin: No appreciable rash on exposed skin, skin is warm and dry. Psych: Mood and affect is normal, memory and judgment is normal. -brown stool noted after fecal occult blood test was negative Diagram Legs Front/Back 1) GENERALIZED Right foot erythema warmth and swelling noted Feet Bottom 1) 5 cm x 4 cm superficial open ulcer with mild discharge and centralized BRAWNY discoloration (SHARON OBREGON,SHIRA) Progress Differential Diagnosis: arterial insufficiency, cellulitis, CHF, compartment syndrome, contusion, dislocation, DVT, fracture, gout, septic arthritis, sprain, tendon injury, OSTEOMYELITIS Plan of Care: Orders Procedure Date/time Status CBC WITHOUT DIFFERENTIAL 07/26 0600 Active BASIC ELECTROLYTES PLUS BUN&CR 07/26 0600 Active Consistent Carbohydrate 1 07/25 L Complete Consistent Carbohydrate 3 07/25 D Active RT: Reevaluation 07/25 1916 Complete RT: Evaluation 07/25 1917 Active Vital Signs 07/25 1848 Active Teach/Educate 07/25 184 Active Nutritional Intake, Monitor 07/25 1848 Active Isolation 07/25 1848 Active Intake & Output 07/25 1848 Active Patient Care Conference 07/25 1848 Active Activity/Ambulation 07/25 1848 Active Pathway - chart 07/25 1425 Active Code Status 07/25 1425 Active Patient Data 07/25 1316 Active Admit to inpatient 07/25 1308 Active Vital Signs 07/25 1308 Active Code Status 07/25 1308 Complete Add-on Test (ER Only) 07/25 1307 Active URINE DRUGS OF ABUSE 07/25 1307 Complete URINALYSIS 07/25 1307 Complete BLOOD CULTURE 07/25 1155 Active ETHANOL 07/25 1150 Complete Intake & Output 07/25 1105 Active LACTIC ACID 07/25 0839 Complete EKG 07/25 0839 Active WESTERGREN SED RATE 07/25 0832 Complete C-REACTIVE PROTEIN 07/25 0732 Complete COMPREHENSIVE METABOLIC PANEL 07/25 831 Complete CBC WITHOUT DIFFERENTIAL 07/25 831 Complete TRC EVALUATION (GEN) 07/25 UNK Complete House Staff 07/25 UNK Active FingerStick- Glucose 07/25 UNK Active Elevate 07/25 UNK Active CIWA 07/25 UNK Active BONE SCAN THREE PHASE 07/25 UNK Active Current Medications Sig/Avery Start time Last Medication Dose Stop Time Status Admin Atorvastatin Calcium 20 MG 1700 07/26 1700 AC (Lipitor) Aspirin Buffered 81 MG DAILY 07/26 1000 AC (Ecotrin) Calcium Carbonate 500 MG DAILY 07/26 1000 AC (TUMS) Cholecalciferol 1,000 IU DAILY 07/26 1000 AC (Vitamin D) Duloxetine HCl 60 MG QAM 07/26 1000 AC (Cymbalta) Folic Acid 1 MG DAILY 07/26 1000 AC (Folic Acid) Insulin Detemir 14 UNITS DAILY 07/26 1000 AC (Levemir) Metoprolol Succinate 25 MG DAILY 07/26 1000 AC (Toprol XL) Tamsulosin HCl 0.4 MG DAILY 07/26 1000 AC (Flomax) Apixaban 5 MG BID 07/25 2200 AC (Eliquis) Budesonide/ 2 PUF BID 07/25 2200 AC Formoterol Fumarate (Symbicort) Duloxetine HCl 30 MG QPM 07/25 2200 AC (Cymbalta) Hydralazine HCl 25 MG BID 07/25 2200 AC (Apresoline) Morphine Sulfate 15 MG BID 07/25 2200 AC (Ms Contin) Sodium Bicarbonate 650 MG BID 07/25 2200 AC (Sodium Bicarb 325MG Tab) Trazodone HCl 150 MG QPM 07/25 2200 AC (Desyrel) Ampicillin Sodium/ 1,500 MG Q6 07/25 1800 AC Sulbactam Sodium (Unasyn) Sodium Chloride 100 ML (Normal Saline 0.9%) Acetaminophen 650 MG Q6P PRN 07/25 1430 AC (Tylenol) Lorazepam 0 Q1P PRN 07/25 1430 AC (Ativan) Polyethylene Glycol 17 GM DAILY PRN 07/25 1430 AC (Miralax) Senna/Docusate Sodium 2 TAB DAILY PRN 07/25 1430 AC (Senokot S) Laboratory Tests 07/25/16 1644: Urine Opiates Screen > 4000.00 H, Methadone Screen 53, Barbiturate Screen < 60, Ur Phencyclidine Scrn < 6.00, Amphetamines Screen < 100, U Benzodiazepines Scrn < 85, Urine Cocaine Screen < 50, Urine Cannabis Screen < 5.00, Urinalysis LIGHT H, Urine Color YEL, Urine Clarity CLEAR, Urine pH 6.0, Ur Specific [place] 1.025 , Urine Protein 100 H, Urine Ketones NEG, Urine Nitrite NEG, Urine Bilirubin NEG, Urine Urobilinogen 0.2, Ur Leukocyte Esterase NEG, Ur Microscopic SEDIMENT EXAMINED, Urine RBC 1-3, Urine WBC RARE, Ur Epithelial Cells FEW, Hyaline Casts RARE H, Urine Mucus FEW, Urine Hemoglobin TRACE-LYSED H, Urine Glucose NEG 07/25/16 1150: Lactic Acid 0.9 07/25/16 1150: Anion Gap 9, Estimated GFR 41 L, BUN/Creatinine Ratio 18.2, Glucose 112 H, Calcium 7.9 L, Total Bilirubin 0.6, AST 53, ALT 41, Alkaline Phosphatase 72, C- Reactive Prot, Quant > 9.0 H, Total Protein 5.2 L, Albumin 2.8 L, Globulin 2.4, Albumin/Globulin Ratio 1.2, CBC w Diff NO MAN DIFF REQ, RBC 2.72 L, MCV 92.6, MCH 31.7 H, RDW 17.9 H, MPV 7.5, Gran % 81.3 H, Lymphocytes % 4.9 L, Monocytes % 11.8 H, Eosinophils % 1.7, Basophils % 0.3, Absolute Granulocytes 6.8 H, Absolute Lymphocytes 0.4 L, Absolute Monocytes 1.0 H, Absolute Eosinophils 0.1, Absolute Basophils 0, PUBS MCHC 34.2, ESR Westergren 84 H, Serum Alcohol < 10.0 07/25/16 1139: Lactic Acid Cancelled Microbiology 07/25 1215 BLOOD: Blood Culture - RECD 07/25 115 BLOOD: Blood Culture - RECD 07/25 0832 BLOOD: Blood Culture - CAN Cancelled: Cancelled via OE: NEEDS TO BE CENTRAL LINE 07/25 831 BLOOD: Blood Culture - CAN Cancelled: Cancelled via OE: NEEDS TO BE CENTRAL LINE Due to history of present illness and exam findings and concerns of x-ray findings of cortical irregularity of the fifth metatarsal that patient has concerns of osteomyelitis and cellulitis. IV access initially was challenging however Unasyn and blood work is pending and was ordered. IV access was extremely difficult and limited in which Dr. DANIEL had performed Central line WITH ACCESS TO RIGHT FEMORAL ARTERY- HE WILL DOCUMENT THIS PROCEDURE ALL The lumen WERE patent and which I was able to flush all 3 ports Central line was performed without complications Signed procedure consent form prior to administration (SHIRA BARBER) Diagnostic Imaging: Viewed by Me: Radiology Read. Radiology Impression: acute abnormality Initial ED EKG: AFIB (66 BPM) Comments: PATIENT: BRANDYN BORDEN PRESENT AGE: 66 PATIENT ACCOUNT NO: [id number] : 51 LOCATION: ER ORDERING PHYSICIAN: SHIRA OBREGON SERVICE DATE: 07/25/16 EXAM TYPE: RAD - XRY-PORTABLE CHEST XRAY EXAMINATION: XR PORTABLE CHEST CLINICAL INFORMATION: Right foot infection admission COMPARISON: 07/18/2016 TECHNIQUE: Portable AP view of the chest was obtained. FINDINGS: Central vascular congestion with no overt edema. No focal consolidation. No definite pleural effusion. Stable cardiomediastinal silhouette enlargement. The patient is status post median sternotomy. IMPRESSION: Stable cardiomegaly with vascular congestion. PATIENT: BRANDYN BORDEN PRESENT AGE: 66 PATIENT ACCOUNT NO: [id number] : 51 LOCATION: ER ORDERING PHYSICIAN: SHIRA OBREGON SERVICE DATE: 07/25/16 EXAM TYPE: RAD - XRY-FOOT COMPLETE, R EXAMINATION: XR FOOT, RIGHT CLINICAL INFORMATION: Plantar ulcer. Evaluate for osteomyelitis. COMPARISON: 06/07/2016. TECHNIQUE: AP, lateral, and oblique views of the right foot. FINDINGS: There is subtle plantar cortical irregularity suggested involving head of the right fifth metatarsal on the lateral view only concerning for subtle cortical destruction. Overlying soft tissue prominence is also suspected in this region. Otherwise bone mineral density is maintained without evidence of fracture or dislocation. There are postoperative changes in the second and third metatarsals distally. Single cortical screws appear intact without evidence of consultation. Joint space is maintained without productive or erosive changes. IMPRESSION: Questionable subtle cortical irregularity in the head of the right fifth metatarsal on the lateral view only. MRI of or 3 phase bone scan could be performed to further evaluate. (SHIRA BARBER) Departure Departure Disposition: STILL A PATIENT Condition: Stable Clinical Impression Primary Impression: Cellulitis of right foot Secondary Impressions: Anemia, Osteomyelitis of right foot Referrals: ZARINA SIMPSON MD (PCP/Family) Departure Forms: Customer Survey General Discharge Information Admission Note Spoke With: DEMETRIUS ARCEO,VIKTOR Schneider Documentation of Exam: Documentation of any treatments & extenuating circumstances including Concerns Regarding Discharge (functional status, medication knowledge or non-compliance, living conditions, etc.) that warrant an admission rather than observation: [ Discussed patient with Dr. ROMO who agrees with [facility] admission for concerns of cellulitis and rule out osteomyelitis. Patient requires podiatry consultation, IV antibiotics, MRI to right foot. Outpatient treatment due to critical findings and concerns of osteomyelitis would be medically harmful] (SHIRA BARBER) PA/TRANSPORTATION ENGINEERING TECHNICIAN Co-Sign Statement Statement: ED Attending supervision documentation- [x] I saw and evaluated the patient. I have also reviewed all the pertinent lab results and diagnostic results. I agree with the findings and the plan of care as documented in the PA's/TRANSPORTATION ENGINEERING TECHNICIAN's documentation. [] I have reviewed the ED Record and agree with the PA's/TRANSPORTATION ENGINEERING TECHNICIAN's documentation. [] Additions or exceptions (if any) to the PAs/TRANSPORTATION ENGINEERING TECHNICIAN's note and plan are summarized below: [] I've seen and personally examined the patient and I agree with the PAs evaluation. A right femoral triple lumen catheter was inserted by the PA under my direct supervision. I was called to assist with the procedure as accessing the vein was challenging. Good flow was returned from all 3 ports, there was no pulsation of the blood flow. The line was secured. (GARRICK DANIEL DO) Critical Care Note Critical Care Note Critical Care Time: 30-74 min (SHIRA BARBER)
--- NOTE | 2016-07-25 08:25 | NUR ---
PT TO ROOM 1, CHANGED INTO GOWN. MINDI HERRERA IN FOR EVAL.
--- NOTE | 2016-07-25 08:47 | NUR ---
PT TO RAD VIA STRETCHER.
--- NOTE | 2016-07-25 09:03 | NUR ---
BACK FROM RAD.
--- NOTE | 2016-07-25 09:14 | RADIOLOGY REPORT ---
EXAMINATION: XR PORTABLE CHEST CLINICAL INFORMATION: Right foot infection admission COMPARISON: 07/18/2016 TECHNIQUE: Portable AP view of the chest was obtained. FINDINGS: Central vascular congestion with no overt edema. No focal consolidation. No definite pleural effusion. Stable cardiomediastinal silhouette enlargement. The patient is status post median sternotomy. IMPRESSION: Stable cardiomegaly with vascular congestion.
--- NOTE | 2016-07-25 09:19 | RADIOLOGY REPORT ---
EXAMINATION: XR FOOT, RIGHT CLINICAL INFORMATION: Plantar ulcer. Evaluate for osteomyelitis. COMPARISON: 06/07/2016. TECHNIQUE: AP, lateral, and oblique views of the right foot. FINDINGS: There is subtle plantar cortical irregularity suggested involving head of the right fifth metatarsal on the lateral view only concerning for subtle cortical destruction. Overlying soft tissue prominence is also suspected in this region. Otherwise bone mineral density is maintained without evidence of fracture or dislocation. There are postoperative changes in the second and third metatarsals distally. Single cortical screws appear intact without evidence of consultation. Joint space is maintained without productive or erosive changes. IMPRESSION: Questionable subtle cortical irregularity in the head of the right fifth metatarsal on the lateral view only. MRI of or 3 phase bone scan could be performed to further evaluate.
--- NOTE | 2016-07-25 09:30 | NUR ---
MULTIPLE ATTEMPTS FOR IV ACCESS BY RN'S TRIED. IV NURSE JOHN PAGED, UNABLE TO COME DOWN. MINDI HERRERA AWARE.
--- NOTE | 2016-07-25 10:30 | NUR ---
ATTEMPT FOR IV ACCESS AND BLOODWORK CONTINUES.
[2016-07-25] MEDS ORDERED: PERCOCET 5-3251 EACH PO ×2 (10:47→12:33)
--- NOTE | 2016-07-25 11:30 | NUR ---
DR DANIEL AND MINDI HERRERA AT BEDSIDE FOR CENTRAL LINE INSERTION.
--- NOTE | 2016-07-25 11:45 | NUR ---
RIGHT GROIN TLC PLACED BY DR DANIEL AND MINDI HERRERA.
[2016-07-25 12:01] LABS: ABSOLUTE BASOPHIL COUNT 0 /CUMM (0.0-0.2)
[2016-07-25 12:11] LABS: ABSOLUTE EOSINOPHIL COUNT 0.1 /CUMM (0.0-0.7); ABSOLUTE GRANULOCYTE CT 6.8 /CUMM (1.4-6.5); ABSOLUTE LYMPH COUNT 0.4 /CUMM (1.2-3.4); BASOPHIL % 0.3 % (0.0-2.0); EOSINOPHIL % 1.7 % (0-5); GRANULOCYTE % 81.3 % (42.2-75.2); MEAN CORPUSCULAR HGB 31.7 PG (27.0-31.0); MEAN CORPUSCULAR HGB CONC 34.2 G/DL (33.0-37.0); MEAN CORPUSCULAR VOLUME 92.6 FL (80.0-94.0); MEAN PLATELET VOLUME 7.5 FL (7.4-10.4); PLATELET COUNT 159 /CUMM (130-400); RBC DISTRIBUTION WIDTH 17.9 % (11.5-14.5); WHITE BLOOD CELL COUNT 8.3 /CUMM (4.8-10.8)
[2016-07-25 12:15] LABS: HEMATOCRIT 25.2 % (42-52); RED BLOOD CELL CT 2.72 /CUMM (4.70-6.10)
--- NOTE | 2016-07-25 13:15 | NUR ---
AWAITING DISPO/POC. Informed waiting has been performed.
--- NOTE | 2016-07-25 13:23 | History & Physical ---
NILO ARCEO,ASHUTOSH 07/25/16 1322: General Information and HPI History of Present Illness: Mr. Ling is a 66-year-old gentleman with a PMH significant for PVD, recent cellulitis/osteomyelitis in LLE s/p BKA at [facility] a few weeks ago (patient has h/o compression fracture in LLE s/p hardware placement complicated by MSSA osteomyelitis), MRSA bacteremia, infective endocarditis, candidemia, well- controlled IDDM type 2, Afib on Eliquis, HTN, HLD, HFpEF, mitral valve repair, pHTN, COPD not on home oxygen, colon cancer s/p resection, prostrate cancer (s/p remission), Waldenstrom's macroglobulinemia, CKD stage IIIB, chronic anemia, chronic pain syndrome, opioid dependence, alcohol abuse (40+ hx with DT seizures ), remote IVDA, and hepatitis C s/p treatment, last admitted in May 2016 for LLE cellulitis and osteomyelitis, presents with a right foot wound with worsening swelling and redness since 5 days ago. Patient reports that he woke up on Monday (07/20) morning and noticed a hemorrhagic laceration on the sole of his right foot. He does not remember any hx of injury or trauma to the foot. He presented to ED on that same day and had the wound sutured. Since then the wound site has turned edematous with erythem extending proximally to the mid-sofia. Patient was seen in the ED yesterday but left AMA after receiving an antibiotics IM because he "had plans at home." He returns today for further workup for the wound infection in his RLE. The patient currently denies any nausea vomiting or shortness of breath. Denies any suicidal or homicidal ideation. He lives alone in an apartment with home health services. He is a current smoker (1PPD for 36 years). He is a former heavy drinkier (40+ years, 1 pint of vodka daily), currently drinks a few shots once a week in average. Since the amputation a few weeks ago patient has using a wheel chair to move. He has completed all the OT sessions and still doing PT at home. PCP - Dr. Simpson Orthopedist - Dr. Alysha Evans or Dr Juvenal Pedro Podaitrist - Dr. Abraham Laborer/Grade Check - Dr. Seth Bleach Tester - Dr. Block He sees urologist, oncolocgist, colorectal surgeon at [facility] Full code. Allergies/Medications Allergies: Coded Allergies: NO KNOWN ALLERGIES (06/07/16) Home Med list Albuterol Sulfate (Ventolin Hfa) 90 MCG HFA.AER.AD 2 PUF INH Q4-6 PRN PRN COPD (Reported) Apixaban (Eliquis) 5 MG TABLET 1 TAB PO BID BLOOD THINNER (Reported) Aspirin (Ecotrin*) 81 MG TABLET.DR 1 TAB PO DAILY HEART/BLOOD (Reported) Atorvastatin Calcium 20 MG TABLET 1 TAB PO DAILY CHOLESTEROL (Reported) Budesonide/Formoterol Fumarate (Symbicort 160-4.5 Mcg Inhaler) 10.2 GM HFA.AER.AD 2 PUF INH BID RESPIRATORY (Reported) Calcium Carbonate 200 MG CALCIUM (500 MG) TAB.CHEW 500 MG PO DAILY High phosphorus level Cholecalciferol (Vitamin D3) (Vitamin D-3) 2,000 UNIT TABLET 1 TAB PO DAILY Supplement Duloxetine HCl 60 MG CAPSULE.DR 1 CAP PO QAM depression (Reported) Duloxetine Hydrochloride (Cymbalta) 30 MG CAPSULE.DR 1 CAP PO QPM DEPRESSION (Reported) Folic Acid 1 MG TABLET 1 TAB PO DAILY OTHER Gabapentin 300 MG CAPSULE 2 CAP PO TID NERVE PAIN (Reported) Hydralazine HCl 25 MG TABLET 1 TAB PO BID BP (Reported) Insulin Detemir (Levemir) 100 UNIT/ML VIAL 14 UNITS SC DAILY DM (Reported) Lorazepam 0.5 MG TABLET 1 TAB PO BID ANXIETY (Reported) Metoprolol Succ XL (Toprol XL) 25 MG TAB.ER.24H 1 TAB PO DAILY BP (Reported) Morphine Sulfate (Morphine Sulfate ER) 15 MG TABLET.ER 1 TAB PO BIDP PAIN ( Reported) Oxycodone HCl (Roxicodone) 15 MG TABLET 1 TAB PO Q4P PRN Severe pain Polyethylene Glycol 3350 (Miralax) 17 GRAM/DOSE POWDER 17 GM PO DAILY PRN CONSTIPATION Sennosides/Docusate Sodium (Senna Plus Tablet) 8.6 MG-50 MG TABLET 2 TAB PO DAILY PRN CONSTIPATION Sodium Bicarbonate 650 MG TABLET 1 TAB PO BID UNKNOWN (Reported) Tamsulosin HCl 0.4 MG CAP.ER.24H 1 CAP PO DAILY PROSTATE (Reported) Thiamine HCl (Vitamin B-1) 100 MG TABLET 1 TAB PO DAILY SUPPLEMENT (Reported) Trazodone HCl 150 MG TABLET 1 TAB PO QPM SLEEP Vitamin E (Dl,Tocopheryl Acet) (Vitamin E) 400 UNIT CAPSULE 2 CAP PO DAILY SUPPLEMENT (Reported) Past History Travel History Traveled to [place] past 21 day No Medical History Neurological: delerium tremens EENT: sinusitis Cardiovascular: AFIB, CHF, hypertension, mitral regurgitation, endocarditis Staph aureus endocarditis Respiratory: COPD Gastrointestinal: GERD, Diarrhea, nausea Hepatic: hepatitis C Renal: chronic kidney disease, B/L renal cysts Musculoskeletal: degen joint disease, CHRONIC BACK PAIN L FOOT NONHEALING WOUND Psychiatric: alcohol dependence, anxiety Endocrine: diabetes Blood Disorders: anemia, Waldenstrohm's macroglobulinemia Cancer(s): colon/rectal cancer (operated), prostate cancer (treated), WALDENSTROM LYMPHOMA 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 FH: diabetes mellitus FH: stroke FHx: prostate cancer PATERNAL GRANDMOTHER, ; Cause: Colon cancer. MOTHER, , Age 87; Cause: Old age. Psychosocial History Where do you live? Home Who Do You Live With? self Services at Home: None Primary Language: Spanish ETOH Use: heavy use Illicit Drug Use: denies illicit drug use Living Will? unknown Power of Charge Rn/HCP? unknown Functional Ability ADLs Independent: dressing, eating, toileting, bathing. Ambulation: independent (Nadine boot left foot) IADLs Independent: shopping, housework, finances, food prep, telephone, transportation , medication admin. Review of Systems Review of Systems Constitutional: Reports: see HPI. Exam & Diagnostic Data Last 24 Hrs of Vital Signs/I&O Vital Signs Date Time Temp Pulse Resp B/P Pulse O2 O2 Flow FiO2 Ox Delivery Rate 07/25 1348 71 18 101/578 95 Room Air 07/25 1213 98.3 71 18 116/64 4 Room Air 07/25 1000 98.7 56 20 109/67 96 Room Air 07/25 0930 96 Room Air 07/25 0753 97.8 96 18 145/79 94 Room Air Intake & Output 07/25 1600 07/25 0800 01/30 0000 Intake Total Output Total Balance Patient 95.254 kg Weight Physical Exam General Appearance Alert, Oriented X3, Cooperative, No Acute Distress Skin 3x3 laceration in right sole without any active bleeding/drainage HEENT Atraumatic, PERRLA, EOMI, Mucous Membr. moist/pink Neck Supple, No JVD Cardiovascular Regular Rate, Normal S1, Normal S2, No Murmurs, Gallops, Rubs Lungs Clear to Auscultation, Normal Air Movement Abdomen Normal Bowel Sounds, Soft, No Tenderness Neurological Normal Speech, Decreased sensation in bilateral LEs Extremities Swelling and erythema in the RLE from foot to the mid sofia, LLE s/p BKA Body Front and Back (Adult) 1) erythema and edema Last 24 Hrs of Labs/Manny: Laboratory Tests 07/25/16 1150: Lactic Acid 0.9 07/25/16 1150: Anion Gap 9, Estimated GFR 41 L, BUN/Creatinine Ratio 18.2, Glucose 112 H, Calcium 7.9 L, Total Bilirubin 0.6, AST 53, ALT 41, Alkaline Phosphatase 72, C- Reactive Prot, Quant > 9.0 H, Total Protein 5.2 L, Albumin 2.8 L, Globulin 2.4, Albumin/Globulin Ratio 1.2, CBC w Diff NO MAN DIFF REQ, RBC 2.72 L, MCV 92.6, MCH 31.7 H, RDW 17.9 H, MPV 7.5, Gran % 81.3 H, Lymphocytes % 4.9 L, Monocytes % 11.8 H, Eosinophils % 1.7, Basophils % 0.3, Absolute Granulocytes 6.8 H, Absolute Lymphocytes 0.4 L, Absolute Monocytes 1.0 H, Absolute Eosinophils 0.1, Absolute Basophils 0, PUBS MCHC 34.2, ESR Westergren 84 H, Serum Alcohol < 10.0 07/25/16 1139: Lactic Acid Cancelled Microbiology 07/25 1215 BLOOD: Blood Culture - RECD 07/25 115 BLOOD: Blood Culture - RECD 07/25 0832 BLOOD: Blood Culture - CAN Cancelled: Cancelled via OE: NEEDS TO BE CENTRAL LINE 07/25 831 BLOOD: Blood Culture - CAN Cancelled: Cancelled via OE: NEEDS TO BE CENTRAL LINE Assessment/Plan Assessment: Mr. Ling is a 66-year-old gentleman with a PMH significant for PVD, h/o compression fracture in LLE s/p hardware placement complicated by MSSA cellulitis/osteomyelitis in LLE s/p BKA at [facility], MRSA bacteremia, infective endocarditis, candidemia, well-controlled IDDM type 2, Afib on Coumadin, HTN, HLD, HFpEF, mitral valve repair, pHTN, COPD not on home oxygen, colon cancer s/p resection, prostrate cancer (s/p remission), Waldenstrom's macroglobulinemia, CKD stage IIIB, chronic anemia, chronic pain syndrome, opioid dependence, alcohol abuse (40+ hx with DT seizures), remote IVDA, and hepatitis C s/p treatment, last admitted in May 2016 for LLE cellulitis and osteomyelitis, who presents with a laceration on the right sole with worsening erythema and edema, most likely 2/2 cellulitis and possible osteomyelitis. He was admitted to general medicine floor with the following problems: # Left lower extremity cellulitis with possible underlying osteomyelitis of left foot Patient presents with worsening right lower extremity edema and erythema. No signs of SIRS. He is afebrile with a normal white count. X-ray showed possible osteomyelitis left foot. - Xray of the right foot (07/25): Questionable subtle cortical irregularity in the head of the right fifth metatarsal on the lateral view only. * Pursue 3 phase bone scan of right foot for further evaluation (r/o osteomyelitis) * Continue IV Unasyn (started in ED) * Monitor vitals every shift. * Cont to check for fever, leukocytosis, worsening symptoms * Follow blood cultures * Consider consulting Dr. Hawk * Adequate pain control with Tylenol for mild pain, Roxicodone for moderate to severe pain. # Chronic pain syndrome with opiod dependance: He has chronic pain in the back and left foot with phantom pain s/p BKA. * Cont gabapentin and trazodone at home doses * Cont home med Roxicodone 15mg PO Q4P # Atrial fibrillation on Eliquis with history of poor compliance: EKG on admission shows Afib with rate controlled. * Cont home med Eliquis 5mg PO BID (recently switched from Coumadin at [facility] per the pt) # Alcohol withdrawl * Ativan PRN per [facility] protocol # HTN * Continue Toprol XL 25mg PO daily * Continue hydralazine # HLP * Cont lipitor 20 mg daily and ASA 81 mg daily. # Tobacco abuse: Discussed with patient benefits of quitting and risks of continued smoking. * Nictoine patch and gums as needed # Diabetes mellitus: Patient carries h/o IDDM type 2, well controlled. HgA1C in December 2015 was 5.4. He takes levemir 14U daily at home. * NovoLog SSI with Accu-Cheks. # COPD * Continue home medications * Continue Symbicort inhaler * Continue Spiriva * Maintain oxygen saturations here about 92%. * Provide supplemental oxygen if necessary. # History of peripheral neuropathy * Continue home dose of gabapentin. # CKD: Likely secondary to HTN and diabetic nephrosclerosis. * Cont home med Vitamin D 1000 IU daily * Cont home med sodium bicarb 650mg PO BID # BPH: * Cont home medication of flomax 0.4 mg daily. # Insomnia * Continue trazodone 150mg PO qHS # Depression/Anxiety * Continue duloxetine 60mg PO QD DVT prophylaxis-Coumadin Regular diet-consistent carbohydrate diet Full code Mild pain Tylenol Moderate to severe Roxicodone As Ranked By This Provider Problem List: 1. A.FIBB S/P CARDIOVERSION 2. ACUTE ON CHRONIC KIDNEY INJURY 3. Alcohol dependence 4. Benign hypertension 5. CONGESTIVE HEART FAILURE 6. COLON CA S/P RESECTION 7. COPD 8. Colitis 9. DIABETIC NEUROPATHY 10. Diabetes mellitus type 2 11. ETOH DETOX 12. Endocarditis 13. HEPATITIS C 14. PROSTATE CARCINOMA S/P RESECTI 15. SYMPTOMATIC ANEMIA 16. Syncope 17. Right leg swelling 18. Wheezing on auscultation 19. Prostate cancer 20. Malignant lymphoplasmacytic lymphoma 21. Afib 22. HTN (hypertension) 23. H/O CHF 24. GI bleed 25. Umbilical hernia 26. Renal cyst 27. YVROSE (acute kidney injury) 28. Full code status 29. DVT prophylaxis 30. Macrocytic anemia 31. Abdominal pain 32. Abdominal hernia 33. Alcohol withdrawal 34. Lactic acidosis 35. Guaiac positive stools 36. Gastritis 37. Chronic anemia 38. Fungemia 39. Candidemia 40. Alcohol dependence 41. Alcohol dependence with withdrawal 42. Alcohol withdrawal delirium, acute, hyperactive 43. COPD exacerbation 44. Alcohol abuse 45. Anemia 46. Leukocytosis 47. Renal insufficiency 48. Elevated BP 49. Elevated brain natriuretic peptide (BNP) level 50. Alcoholism 51. Anemia affecting 10th 52. Atrial fibrillation with normal ventricular rate 53. Warfarin-induced coagulopathy 54. Chronic pain 55. Hyperventilation 56. Cellulitis 57. Osteomyelitis of left foot 58. Hyponatremia 59. Left foot infection 60. Osteomyelitis 61. Alcohol use disorder 62. Laceration 63. Cellulitis of foot without toes, right 64. Cellulitis of leg, right 65. Cellulitis of right foot 66. Osteomyelitis of right foot Core Measures/Miscellaneous Acute Coronary Syndrome ACS Diagnosis: No Cerebrovascular Accident CVA/TIA Diagnosis: No Congestive Heart Failure CHF Diagnosis: No Venous Thromboembolism VTE Risk Factors: Age > 40, Obesity, Smoking VTE Prophylaxis [facility]dered Inpt: [facility] prophylaxis d/t: Amputee, Peripheral vascular Dx No VTE Pharm Prophylaxis d/t: VTE low risk, No contraindications VTE Diagnosis: No VTE Type: NONE VTE Confirmed by (Test): NONE Severe Sepsis Severe Sepsis Present: No Septic Shock Septic Shock Present: No Miscellaneous Documentation Attending Case Discussed With: DEMETRIUS ARCEO,VIKTOR Schneider Primary Care Physician: ZARINA SIMPSON MD Patient sees these Specialists PCP - Dr. Simpson Orthopedist - Dr. Alysha Evans or Dr Juvenal Pedro Podaitrist - Dr. Abraham Laborer/Grade Check - Dr. Ann Bleach Tester - Dr. Block He sees urologist, oncolocgist, colorectal surgeon at [facility] Level of Patient Care: General Medicine MACI MINER 07/25/16 1505: Resident Review Statement Resident Statement: amended to note Other Findings: Mr. Ling is a 66-year-old gentleman with a PMH significant for recurrent cellulitis/osteomyelitis, MRSA bacteremia, infective endocarditis, candidemia, diabetes, diabetic neuropathy, Afib on elliquis, HTN, HLD, HFpEF, mitral valve repair, pHTN, COPD, chronic pain syndrome, opioid dependence, prostrate cancer ( s/p remission), colon cancer, waldenstrom macroglobulinemia,, CKD stage IIIB, chronic anemia, alcohol abuse (40+ hx with DT seizures), remote IVDA, and hepatitis C s/p treatment, last admitted in May 2016 for left foot cellulitis and osteomyelitis subsequent transfer [facility] for below the knee left foot amputation came to the hospital with chief complaint of redness and swelling of the right foot. Patient reports he noticed bleeding from the bottom of his left foot last Monday from [facility] because he doesn't have any sensation in his legs. He came to [facility] ED and get 11 sutures is on Monday and sent back home. However on Monday he noticed some bleeding on his foot and flap of skin . He came back to [facility] ED and he was instructed to be admitted, however he signed out AMA to take care of some of his plans on Monday and he came back on Monday. patient denies any fever, chills, nausea, vomiting, chest pain, headache, diarrhea, constipation. Patient reports of chronic back pain and hesitancy and pain while urinating which is chronic. vital signs admission were stable, no fever which is written above. HEENT Atraumatic, PERRLA, EOMI Neck Supple, No JVD, No thryomegaly Lymphatic Cervical nl Cardiovascular irrigular Rate, Normal S1, Normal S2 Lungs mild basal expiratory wheezing, Normal Air Movement Abdomen Normal Bowel Sounds, Soft, midline scar and midline hernia Neurological Normal Gait, Normal Speech, no sensation on the left foot up to mid shins Extremities below the knee amputation on the left leg,2+ edema and redness of the right leg , 4x4 cm right mildly indurated ulcer on the sole of right foot , 2 x 2 centimeter crusted chronic ulcer on the lateral right ankle. labs on admission, creatinine 1.7, hemoglobin 8.6 which is at baseline foot xay : IMPRESSION: Questionable subtle cortical irregularity in the head of the right fifth metatarsal on the lateral view only. MRI of or 3 phase bone scan could be performed to further evaluate. CXR: IMPRESSION: Stable cardiomegaly with vascular congestion. Assessment and plan #Cellulitis versus osteomyelitis -Continue IV Unasyn for now -Follow blood cultures -3-phase bone scan to rule out osteomyelitis -Elevate the right foot -Tylenol for fever #COPD/Smoking/alchol drinking -Continue home inhalers -nicotine patch -Ativan per [facility] protocol #DM -Continue vitamin and put the patient on low-dose sliding scale insulin -Diabetic regimen with fingersticks -Continue gabapentin for diabetic neuropathy #Chronic back pain/anxiety/drepression -Continue oxycodone and morphine sulfate -Continue Ativan -Continue bowel regimen -Continue duloxetine #A. fib on eliquis -Continue home dose #CAD/HTN -Continue aspirin -Continue metoprolol and hydralazine DVT prophylaxis is eliquis, no Alps, diabetic diet, full code, oxycodone and morphine sulfate for pain ROMOAARON KENNYKEANU 07/26/16 1640: Attending MD Review Statement Attending Statement Attending MD Statement: examined this patient, discuss w/resident/PA/SHOP BLACKSMITH, agreed w/resident/PA/SHOP BLACKSMITH, reviewed EMR data (avail) Attending Assessment/Plan: Pt seen and examined with the team and agree with the assessment and plan. Please see my separate attending note for more details.
--- NOTE | 2016-07-25 13:45 | NUR ---
HOUSESTAFF IN FOR EVAL.
--- NOTE | 2016-07-25 14:45 | NUR ---
HOUSESTAFF IN FOR EVAL. PT AWARE OF NEED FOR URINE. Informed waiting has been performed.
[2016-07-25] MEDS ORDERED: MORPHINE SULFAT15 M3 PO (14:49)
--- NOTE | 2016-07-25 15:37 | Admission Certification ---
Admission Certification Certification Statement - As attending physician, I certify that at the time of - admission, based on clinical presentation, severity of - symptoms, need for further diagnostic testing and - therapeutic interventions, and risk of adverse outcomes - without in-hospital treatment, in my clinical assessment, - this patient requires an acute hospital stay for a minimum - of two nights or longer. I have also considered psychsocial - factors such as support system, advanced age, financial - issues, cognitive issues, and failed out-patient treatments, - past re-admission history, safety of patient, and lack of - compliance as applicable. Specific rationale supporting this admission is: Cellulitis feet with questionable underlying osteomyelitis
--- NOTE | 2016-07-25 15:45 | NUR ---
PT RT FOOT BLOODY AND DRAINING ALL OVER FLOOR PLUM SIZE AREA TO SOLE OF FOOT APPEARS TO BE OF BLISTER TYPE, CLEANSED AND DRESSED. PT VERY CANTANCEROUS.
--- NOTE | 2016-07-25 15:47 | PN- Att Addend ---
Attending Addendum Attending Brief Note 66-year-old gentleman with a PMH significant for PVD, recent cellulitis/ osteomyelitis in LLE s/p BKA at [place] a few weeks ago , MRSA bacteremia, infective endocarditis, candidemia, well-controlled IDDM type 2, Afib on Eliquis , HTN, HLD, HFpEF, mitral valve repair done in 2012, COPD not on home oxygen, colon cancer s/p resection, prostrate cancer (s/p remission), Waldenstrom's macroglobulinemia, CKD stage IIIB, chronic anemia, chronic pain syndrome, opioid dependence, alcohol abuse, remote IVDA, and hepatitis C s/p treatment, presented with rt foot redness and laceration which he noticed on 07/20. Pt presented to the ER and had sutures placed. Pt was seen in ER again on 07/24 and was thought to have cellulitis but pt signed out AMA and came back again today for evaluation. A/p- Cellulitis / Possible osteomyelitis- will cont on iv unasyn, will get bone scan to r/o osteomyelitis given ? xray findings. Not a candidate for MRI due to underlying CKD. pt has h/o MRSA, if not responding to unasyn, will broaden coverage to include MRSA. d/w pt the care plan. Pain management- cont home meds. CKD- stable, cont to monitor creatinine. Attending MD Review Statement Attending Statement Attending MD Statement: examined this patient, discuss w/resident/PA/MEAT CARRIER, agreed w/resident/PA/MEAT CARRIER, reviewed EMR data (avail)
--- NOTE | 2016-07-25 17:01 | NUR ---
REPORT GIVEN TO [facility] DISTRIBUTION BOOKED.
--- NOTE | 2016-07-25 17:49 | NUR ---
CONT TO AWAIT DISTRIBUTION.
[2016-07-25 18:36] VITALS: BP 122/60
[2016-07-25 22:35] VITALS: BP 140/80
[2016-07-26] VITALS (7 sets, daily range): BP systolic 110–164; BP diastolic 60–90
--- NOTE | 2016-07-26 07:25 | PN- Housestaff ---
Subjective Follow-up For: Right foot wound Complaints: no complaints Subjective: I followed up and examined the patient today. He was lying comfortably in the bed and was not in any acute distress. He did not have any complaints, his pain was under control, no overnight issues. There was no complain about his wound. Vitals stable. Review of Systems Constitutional: Reports: no symptoms. EENTM: Reports: no symptoms. Cardiovascular: Reports: no symptoms. Respiratory: Reports: no symptoms. Gastrointestinal: Reports: no symptoms. Genitourinary: Reports: no symptoms. Skin: Reports: see HPI. Objective Last 24 Hrs of Vital Signs/I&O Vital Signs Date Time Temp Pulse Resp B/P Pulse O2 O2 Flow FiO2 Ox Delivery Rate 07/26 1411 97.0 73 18 130/60 94 Room Air 07/26 0911 118/68 07/26 0800 Room Air 07/26 0600 97.4 90 20 112/77 07/26 0527 97.4 90 20 112/74 94 Room Air 07/26 0200 98.1 72 20 110/80 07/26 0130 98.1 72 20 110/80 96 Room Air 07/26 0000 100 Room Air 07/25 2235 97.7 79 20 140/80 100 Room Air 07/25 1940 Room Air Room Air 07/25 1836 97.6 73 18 122/60 95 Room Air 07/25 1806 97.8 73 18 119/76 96 Room Air 07/25 1539 98.4 104 18 106/69 92 Room Air Intake & Output 07/26 1600 07/26 0800 07/26 0000 Intake Total 430 300 Output Total 700 600 Balance -270 -300 Intake, IV 130 Intake, Oral 300 300 Number 0 Bowel Movements Output, Urine 700 600 Patient 95.254 kg Weight Physical Exam General Appearance: Alert, Oriented X3, Cooperative, No Acute Distress Other Physical Findings: Physical examnination: General: well nourished patient not in distress Head: Normocephalic, atraumatic Eyes: Pupils normal in size, regular, reacting to light and accommodation, EOM normal Ears: B/l normal on inspection Nose: Normal on inspection Throat/mouth: Moist mucosa Neck: Supple, full range of motion, no thyromegaly Heart: Regular rate, regular rhythm Lung: Normal breath sound bilaterally Added sound not heard Abd: Soft, non-tender, no distention appreciated Back: Normal range of motion Extremities: Left below-knee amputation, right-sided wound over the malleolus and in the sole, well dressed, not losing, not actively bleeding, signs of peripheral vascular disease present Neurologic: Alert, oriented x3, Cranial exam grossly intact, Speech is clear and coherent Skin: Warm and dry Psychiatric: Calm, cooperative, coherant Current Medications: Current Medications Sig/Avery Start time Last Medication Dose Route Stop Time Status Admin Acetaminophen 650 MG Q6P PRN 07/25 1430 AC PO Ampicillin Sodium/ 1,500 MG Q6H 07/26 0400 AC 07/26 Sulbactam Sodium IV 0908 Sodium Chloride 100 ML Ampicillin Sodium/ 1,500 MG Q6 07/25 1800 DC 07/25 Sulbactam Sodium IV 2158 Sodium Chloride 100 ML Apixaban 5 MG BID 07/25 2200 AC 07/26 PO 0912 Aspirin Buffered 81 MG DAILY 07/26 1000 AC 07/26 PO 0909 Atorvastatin Calcium 20 MG 1700 07/26 1700 AC PO Budesonide/ 2 PUF BID 07/25 2200 AC 07/26 Formoterol Fumarate INH 0917 Calcium Carbonate 500 MG DAILY 07/26 1000 AC 07/26 PO 0909 Cholecalciferol 1,000 IU DAILY 07/26 1000 AC 07/26 PO 0909 Duloxetine HCl 60 MG QAM 07/26 1000 AC 07/26 PO 0909 Duloxetine HCl 30 MG QPM 07/25 2200 AC 07/25 PO 2157 Folic Acid 1 MG DAILY 07/26 1000 AC 07/26 PO 0909 Gabapentin 0 .STK-MED ONE 07/25 1622 DC PO Gabapentin 600 MG TID 07/25 1600 AC 07/26 PO 0909 Hydralazine HCl 25 MG BID 07/25 2200 AC 07/26 PO 1142 Insulin Aspart 0 TIDAC 07/25 1700 AC 07/26 SC 1142 Insulin Detemir 14 UNITS DAILY 07/26 1000 AC 07/26 SC 0911 Lorazepam 0 Q1P PRN 07/25 1430 AC IV Lorazepam 0.5 MG BID 07/25 1422 AC 07/26 PO 08/01 1421 0909 Metoprolol Succinate 25 MG DAILY 07/26 1000 AC 07/26 PO 0911 Morphine Sulfate 15 MG BID 07/25 2200 AC 07/26 PO 0834 Nicotine 0 .STK-MED ONE 07/25 1623 DC TOP Nicotine 14 MG DAILY 07/25 1530 07/26 TOP 0911 Oxycodone HCl 15 MG Q4-PRN PRN 07/25 1430 AC 07/26 PO 1239 Patient Medication 1 ED .STK-MED ONE 07/26 1408 DC Teaching ED 07/26 1409 Patient Medication 1 ED .STK-MED ONE 07/26 1405 DC Teaching ED 07/26 1406 Polyethylene Glycol 17 GM DAILY PRN 07/25 1430 AC PO Senna/Docusate Sodium 2 TAB DAILY PRN 07/25 1430 PO Sodium Bicarbonate 650 MG BID 07/25 2200 AC 07/26 PO 0909 Tamsulosin HCl 0.4 MG DAILY 07/26 1000 AC 07/26 PO 0909 Trazodone HCl 150 MG QPM 07/25 2200 AC 07/25 PO 2157 Last 24 Hrs of Lab/Manny Results Last 24 Hrs of Labs/Mics: Laboratory Tests 07/26/16 0600: Anion Gap 7, Estimated GFR 41 L, BUN/Creatinine Ratio 17.6, CBC w Diff NO MAN DIFF REQ, RBC 2.47 L, MCV 95.7 H, MCH 32.9 H, RDW 18.3 H, MPV 7.6, Gran % 78.8 H, Lymphocytes % 5.1 L, Monocytes % 13.3 H, Eosinophils % 2.4, Basophils % 0.4, Absolute Granulocytes 5.0, Absolute Lymphocytes 0.3 L, Absolute Monocytes 0.8 H, Absolute Eosinophils 0.2, Absolute Basophils 0, PUBS MCHC 34.4 07/25/16 1644: Urine Opiates Screen > 4000.00 H, Methadone Screen 53, Barbiturate Screen < 60, Ur Phencyclidine Scrn < 6.00, Amphetamines Screen < 100, U Benzodiazepines Scrn < 85, Urine Cocaine Screen < 50, Urine Cannabis Screen < 5.00, Urinalysis LIGHT H, Urine Color YEL, Urine Clarity CLEAR, Urine pH 6.0, Ur Specific [place] 1.025 , Urine Protein 100 H, Urine Ketones NEG, Urine Nitrite NEG, Urine Bilirubin NEG, Urine Urobilinogen 0.2, Ur Leukocyte Esterase NEG, Ur Microscopic SEDIMENT EXAMINED, Urine RBC 1-3, Urine WBC RARE, Ur Epithelial Cells FEW, Hyaline Casts RARE H, Urine Mucus FEW, Urine Hemoglobin TRACE-LYSED H, Urine Glucose NEG Assessment/Plan Assessment: 66-year-old male with past medical history of severe peripheral vascular disease , recent below-knee amputation of left lower extremity following osteoarthritis, MRSA bacteremia, infective endocarditis, type 2 diabetes mellitus, atrial fibrillation on Eliquis, hypertension, hyperlipidemia, CHF with preserved ejection fraction, status post mitral valve repair in 2013, COPD not on home oxygen, colon cancer status post resection, prostate cancer status post revision , Waldenstorm's macroglobulinemia, CK D stage III B, chronic anemia, chronic pain, opioid dependence, alcohol abuse, remote IV drug abuser, hepatitis C status post treatment, presented with right foot wounds and is currently being treated in the general medical floor for the following issues: #Right foot wound, possible osteomyelitis Patient had a wound on his right sole and right malleolus, and a wound care procedure was done at [facility] with a skin graft over the sole point. Patient apparently had it dislodged from its original position and visited the emergency department where it was sutured and he went home. The area currently looks cellulitis with possible osteomyelitis deep within. X-ray of the foot shows questionable signs of osteomyelitis. -Continue IV antibiotics -Follow up on 3 phase bone scan, as the patient cannot have IV contrast due to CKD -Podiatry consult was placed with Dr. Abraham. Awaiting his input -Follow-up on blood cultures to modify antibiotics accordingly #Continue home medications for diabetes mellitus , dyslipidemia, hypertension, chronic pain. #DVT prophylaxis with Eliquis #Diet orders: Consistent carbohydrate 3 #CODE STATUS: Full code Problem List: 1. Osteomyelitis of right foot 2. Cellulitis of right foot Pain Ratin Pain Location: right foot Pain Goal: Pain 4 or less Pain Plan: in place with morphine and others as needed Tomorrow's Labs & Rationales: CBC, BEP to follow up on his infective state
[2016-07-26 08:06] LABS: ABSOLUTE BASOPHIL COUNT 0 /CUMM (0.0-0.2); ABSOLUTE EOSINOPHIL COUNT 0.2 /CUMM (0.0-0.7); ABSOLUTE LYMPH COUNT 0.3 /CUMM (1.2-3.4); ABSOLUTE MONOCYTE COUNT 0.8 /CUMM (0.10-0.60); BASOPHIL % 0.4 % (0.0-2.0); EOSINOPHIL % 2.4 % (0-5); GRANULOCYTE % 78.8 % (42.2-75.2); HEMATOCRIT 23.6 % (42-52); MEAN CORPUSCULAR HGB 32.9 PG (27.0-31.0); MEAN CORPUSCULAR HGB CONC 34.4 G/DL (33.0-37.0); MEAN CORPUSCULAR VOLUME 95.7 FL (80.0-94.0); MEAN PLATELET VOLUME 7.6 FL (7.4-10.4); PLATELET COUNT 159 /CUMM (130-400); RBC DISTRIBUTION WIDTH 18.3 % (11.5-14.5); RED BLOOD CELL CT 2.47 /CUMM (4.70-6.10); WHITE BLOOD CELL COUNT 6.4 /CUMM (4.8-10.8)
--- NOTE | 2016-07-26 09:16 | NUR ---
0000 PT RETURNED FROM BR WITH RW & 2 STAFFS.BUT FELL OVER & DROPPED ONTO LT.KNEE.LT.STUMP INCISION OPENED & BLEEDING.DSD & KERLIX APPLIED.REPORTED TO TRANSACTION ADVISORY SERVICES MANAGER.TO WATCH OUT FOR BLEEDING. 0400 LT.STUMP DSD FELL OFF.BLEEDING STOPPED.NEW DSG APPLIED & COVERED WITH SPANDAGE.TRANSACTION ADVISORY SERVICES MANAGER AWARED. 0600 BLOOD DRAWN.ALL 3 PORTS FLUSHED & CAPS CHANGED.NO LEAKING NOTED.
--- NOTE | 2016-07-26 14:31 | NUR ---
WOUND CARE: REQUESTED BY NURSING TO EVAL PT FOR SKIN ALTERATIONS PRESENT ON ADMISSION - HX REVIEWED WITH PT AND CHART - KNOWN TO THIS COOK COLD MEAT - RIGHT LATERAL ANKLE FULL THICKNESS WOUND 1.2 X 1.1 CM MIXED RED AND WHITE BASE - PERIWOUND THICK CALLOUS - WOUND BASE DEEP CRATER - SCANT SEROUS DRNG - RIGHT DORSAL FOOT POSTERIOR TO 5TH DIGIT 6.6 X 4.5 CM 80% LI DRY SLOUGH 20% NONVIABLE PINK FILL - PERIWOUND ERYTHEMA EXTENDING UP MID FOOT - LEFT STUMP MEDIAL ASPECT 1.2 X 1.1 CM 100% WHITE SLOUGH - INNER STUMP MIDLINE INCISION 0.6 X 5 CM FULL THICKNESS DEHISENCE ALONG MOIST SCAB - NO EVIDENCE OF INFECTION - PT REPORTS RECENT TRAUMA TO AREA WELL, WHICH WAS A RESULT OF LANDING ON STUMP - PT AWAITING BONE SCAN RIGHT FOOT - DR ARCE MADE AWARE OF WOUND STATUS AND NEED TO ASSESS IMPRESSION: NONHEALING SX WOUND LEFT STUMP - UNSTAGEABLE PRESSURE INJURY RIGHT FOOT AND ANKLE (R/O NOGUEIRA GRADE 2 VS 3) RECOMMNEDATION: APPLY BETADINE MOIST GAUZE FB KERLIX DAILY TO LEFT STUMP - CLEANSE RIGHT FOOT AND ANKLE WITH NS FB XEROFORM GAUZE AND KERLIX DAILY - PODIATRY CONSULT PLEASE - AWAIT BONE SCAN RESULTS
--- NOTE | 2016-07-26 16:44 | PN- Att Addend ---
Attending Addendum Attending Brief Note 66-year-old gentleman with a PMH significant for PVD, recent cellulitis/ osteomyelitis in LLE s/p BKA at [place] a few weeks ago , MRSA bacteremia, infective endocarditis, candidemia, well-controlled IDDM type 2, Afib on Eliquis , HTN, HLD, HFpEF, mitral valve repair done in 2012, COPD not on home oxygen, colon cancer s/p resection, prostrate cancer (s/p remission), Waldenstrom's macroglobulinemia, CKD stage IIIB, chronic anemia, chronic pain syndrome, opioid dependence, alcohol abuse, remote IVDA, and hepatitis C s/p treatment, presented with rt foot redness and laceration which he noticed on 07/20. Pt presented to the ER and had sutures placed. Pt was seen in ER again on 07/24 and was thought to have cellulitis but pt signed out AMA and came back again today for evaluation. A/p- Cellulitis / Possible osteomyelitis- will cont on iv unasyn, will get bone scan to r/o osteomyelitis given ? xray findings. Not a candidate for MRI due to underlying CKD. pt has h/o MRSA, if not responding to unasyn, will broaden coverage to include MRSA. Getting bone scan today. Wound looks the same as yesterday, no worsening. d/w pt the care plan. Pain management- cont home meds. CKD- stable, cont to monitor creatinine.
--- NOTE | 2016-07-26 17:13 | NUCLEAR MEDICINE REPORT ---
EXAMINATION: NM BONE SCAN 3 PHASE CLINICAL INFORMATION: Ulcer of the sole of the right foot. Recent left below the knee amputation. COMPARISON: A previous whole body bone scan dated 05/14/2010 is available for comparison. Radiographs of the right foot dated 07/25/2016 are also available for comparison. TECHNIQUE: Initial rapid sequence images were obtained over the right foot during the bolus injection of 35.2 mCi Tc-99m HDP. Static images of the distal lower extremities were then obtained 2 hours post injection. FINDINGS: Initial rapid sequence images show homogeneous distribution of flow 2 the right foot with no foci of more prominently increased flow. The left lower leg is not visualized due to a recent below the knee amputation. The blood pool images the right foot obtained immediately following the flow study shows homogeneous distribution of blood pool activity with no foci of abnormally increased blood pool activity. The delayed static images show minimally increased activity laterally in the mid right foot in a focus that is probably at the base of the right fifth metatarsal bone. There is also minimally increased activity in the posterior aspect of the tibiotalar articulation. There is intensely increased activity at the recent amputation site in the proximal left femoral shaft. There is a focus of mildly increased activity at the amputation site in the adjacent proximal left fibula. There is also mildly increased activity in the patellae bilaterally. IMPRESSION: 1. No abnormalities suspicious for osteomyelitis in the right foot are noted. Minimal abnormality at the base of the left fifth metatarsal bone in the posterior aspect of the tibiotalar articulation on the right R likely arthritic or traumatic in etiology, but the mild intensity does not suggest an acute process. 2. Nonspecific patellar abnormalities are bilaterally symmetrical and likely degenerative. 3. Recent left below the knee amputation.
--- NOTE | 2016-07-27 | NUR ---
NURSING NOTE: PT BP 168/90. MD AMANDA SCHMITZ AWARE. PER MD, THIS BP IS ACCEPTABLE FOR THIS PT. RECHECK BP @ NEXT SCHEDULED TIME. RN WILL CONTINUE TO MONITOR.
[2016-07-27 00:36] VITALS: BP 168/90
--- NOTE | 2016-07-27 03:30 | NUR ---
ON 07/27/16 AT 12AM, PATIENT'S VS WERE OBTAINED. ALL WNL EXCEPT BP 168/90. PATIENT HAD PREVIOUSLY TAKEN SCHEDULED HYDRALAZINE AT 10PM. PATIENT DENIES HEADACHE OR ANY DISCOMFORT. NO DISTRESS WAS NOTED. MD NOTIFIES. NO FURTHER ACTION WAS TAKEN AT THIS TIME. PATIENT RESTING COMFORTABLY IN BED. WILL CONTINUE TO MONITOR.
[2016-07-27 06:23] VITALS: BP 148/90
[2016-07-27 08:04] LABS: ABSOLUTE BASOPHIL COUNT 0 /CUMM (0.0-0.2); ABSOLUTE EOSINOPHIL COUNT 0.1 /CUMM (0.0-0.7); ABSOLUTE GRANULOCYTE CT 3.6 /CUMM (1.4-6.5); ABSOLUTE LYMPH COUNT 0.3 /CUMM (1.2-3.4); ABSOLUTE MONOCYTE COUNT 0.7 /CUMM (0.10-0.60); BASOPHIL % 0.1 % (0.0-2.0); GRANULOCYTE % 76.6 % (42.2-75.2); HEMATOCRIT 22.8 % (42-52); MEAN CORPUSCULAR HGB 33.6 PG (27.0-31.0); MEAN CORPUSCULAR HGB CONC 34.5 G/DL (33.0-37.0); MEAN CORPUSCULAR VOLUME 97.3 FL (80.0-94.0); MEAN PLATELET VOLUME 7.4 FL (7.4-10.4); PLATELET COUNT 151 /CUMM (130-400); RBC DISTRIBUTION WIDTH 18.1 % (11.5-14.5); RED BLOOD CELL CT 2.34 /CUMM (4.70-6.10); WHITE BLOOD CELL COUNT 4.7 /CUMM (4.8-10.8)
--- NOTE | 2016-07-27 08:27 | PN- Housestaff ---
See Addendum Subjective Follow-up For: Cellulitis Subjective: Patient is seen and examined at bedside. Patient does not endorse any acute complaints including increased lower extremity pain, chest pain, palpitation, shortness of breath, abdominal pain, fever, chills,dysuria. Review of Systems Constitutional: Denies: see HPI. Objective Last 24 Hrs of Vital Signs/I&O Vital Signs Date Time Temp Pulse Resp B/P Pulse O2 O2 Flow FiO2 Ox Delivery Rate 07/27 0955 78 16807/27 0949 78 16807/27 0943 78 16807/27 0623 97.9 81 20 148/90 94 Room Air 07/27 0036 98.9 90 20 168/ 94 Room Air Intake & Output 07/27 1600 07/27 0800 07/27 0000 Intake Total 360 530 400 Output Total 1100 1250 501 Balance -740 -720 -101 Intake, IV 130 100 Intake, Oral 360 400 300 Number 0 Bowel Movements Output, Stool 1 Output, Urine 1100 1250 500 Physical Exam General Appearance: Alert, Oriented X3, Cooperative Other Physical Findings: Head: Normocephalic, atraumatic Eyes: Pupils normal in size, regular, reacting to light and accommodation, EOM normal Neck: Supple, full range of motion, no thyromegaly Heart: Regular rate, regular rhythm Lung: Normal breath sound bilaterally Added sound not heard Abd: Soft, non-tender, no distention appreciated Back: Normal range of motion Extremities: Left below-knee amputation, right-sided wound over the malleolus and in the sole, well dressed, not losing, not actively bleeding, signs of peripheral vascular disease present Neurologic: Alert, oriented x3, Cranial exam grossly intact, Speech is clear and coherent Skin: Warm and dry Current Medications: Current Medications Sig/Avery Start time Last Medication Dose Route Stop Time Status Admin Acetaminophen 650 MG Q6P PRN 07/25 1430 AC PO Ampicillin Sodium/ 1,500 MG Q6H 07/26 0400 AC 07/27 Sulbactam Sodium IV 1027 Sodium Chloride 100 ML Apixaban 5 MG BID 07/25 2200 AC 07/27 PO 0949 Aspirin Buffered 81 MG DAILY 07/26 1000 AC 07/27 PO 0948 Atorvastatin Calcium 20 MG 1700 07/26 1700 AC 07/26 PO 1648 Budesonide/ 2 PUF BID 07/25 2200 AC 07/27 Formoterol Fumarate INH 0955 Calcium Carbonate 500 MG DAILY 07/26 1000 AC 07/27 PO 0955 Cholecalciferol 1,000 IU DAILY 07/26 1000 AC 07/27 PO 0955 Duloxetine HCl 60 MG QAM 07/26 1000 AC 07/27 PO 0944 Duloxetine HCl 30 MG QPM 07/25 2200 AC 07/26 PO 2208 Folic Acid 1 MG DAILY 07/26 1000 AC 07/27 PO 0949 Gabapentin 600 MG TID 07/25 1600 AC 07/27 PO 0953 Hydralazine HCl 25 MG BID 07/25 2200 AC 07/27 PO 0943 Insulin Aspart 0 TIDAC 07/25 1700 AC 07/27 SC 1217 Insulin Detemir 14 UNITS DAILY 07/26 1000 AC 07/27 SC 0950 Lorazepam 0 Q1P PRN 07/25 1430 AC IV Lorazepam 0.5 MG BID 07/25 1422 AC 07/27 PO 08/01 1421 0943 Metoprolol Succinate 25 MG DAILY 07/26 1000 AC 07/27 PO 0955 Morphine Sulfate 15 MG BID 07/25 2200 AC 07/27 PO 0953 Nicotine 14 MG DAILY 07/25 1530 AC 07/27 TOP 1031 Oxycodone HCl 15 MG Q4-PRN PRN 07/25 1430 AC 07/27 PO 1215 Patient Medication 1 ED .STK-MED ONE 07/26 1408 [place] Teaching ED 07/26 1409 Patient Medication 1 ED .STK-MED ONE 07/26 1405 [place] Teaching ED 07/26 1406 Polyethylene Glycol 17 GM DAILY PRN 07/25 1430 AC PO Senna/Docusate Sodium 2 TAB DAILY PRN 07/25 1430 AC PO Sodium Bicarbonate 650 MG BID 07/25 2200 AC 07/27 PO 0954 Tamsulosin HCl 0.4 MG DAILY 07/26 1000 AC 07/27 PO 0949 Trazodone HCl 150 MG QPM 07/25 2200 AC 07/26 PO 2210 Last 24 Hrs of Lab/Manny Results Last 24 Hrs of Labs/Mics: Laboratory Tests 07/27/16 0500: Anion Gap 7, Estimated GFR 47 L, BUN/Creatinine Ratio 18.0, CBC w Diff NO MAN DIFF REQ, RBC 2.34 L, MCV 97.3 H, MCH 33.6 H, RDW 18.1 H, MPV 7.4, Gran % 76.6 H, Lymphocytes % 7.1 L, Monocytes % 14.2 H, Eosinophils % 2.0, Basophils % 0.1, Absolute Granulocytes 3.6, Absolute Lymphocytes 0.3 L, Absolute Monocytes 0.7 H, Absolute Eosinophils 0.1, Absolute Basophils 0, PUBS MCHC 34.5 Assessment/Plan Assessment: 66-year-old male with past medical history of severe peripheral vascular disease , recent below-knee amputation of left lower extremity following osteoarthritis, MRSA bacteremia, infective endocarditis, type 2 diabetes mellitus, atrial fibrillation on Eliquis, hypertension, hyperlipidemia, CHF with preserved ejection fraction, status post mitral valve repair in 2013, COPD not on home oxygen, colon cancer status post resection, prostate cancer status post revision , Waldenstorm's macroglobulinemia, CK D stage III B, chronic anemia, chronic pain, opioid dependence, alcohol abuse, remote IV drug abuser, hepatitis C status post treatment, presented with right foot wounds and is currently being treated in the general medical floor for the following issues: #Right foot wound, possible osteomyelitis Patient had a wound on his right sole and right malleolus, and a wound care procedure was done at [facility] with a skin graft over the sole point. Patient apparently had it dislodged from its original position and visited the emergency department where it was sutured and he went home. The area currently looks cellulitis with possible osteomyelitis deep within. X-ray of the foot shows questionable signs of osteomyelitis. Bone scan obtained yesterday was unremarkable for any osteomyelitis. Plan * Patient will be discharged today, with an oral prescription of Augmentin 875 mg by mouth twice a day for 8 days to complete a 10 day post treatment for cellulitis. Pt also instructed to follow-up with Dr. Hawk within 1-2 days after discharge. * Patient continue on her home meds. Problem List: 1. Cellulitis Pain Ratin Pain Location: lower extremities Pain Goal: Pain 4 or less Pain Plan: APAP for mild pain Oxycodone for moderate pain Tomorrow's Labs & Rationales: none-plan for discharge today
[2016-07-27 09:55] VITALS: BP 168/92
[2016-07-27] MEDS ORDERED: AUGMENTIN 875-1 EACH PO (10:48)
--- NOTE | 2016-07-27 10:55 | Patient Discharge Instructions ---
Discharge Instructions General Discharge Information You were seen/treated for: cellulitis Special Instructions: please follow up with Dr Abraham with 1-2 days after discharge Please follow up with your primary care in 1 week Please seek immediate attention if your leg redness or swelling worsens. Activity Full Activity/No Limits: No (as tolerated) Acute Coronary Syndrome Inclusion Criteria At DC or during hospital stay patient has or had the following: ACS DIAGNOSIS No Discharge Core Measures Meds if any: Prescribed or Continued at Discharge Meds if any: NOT Prescribed or Continued at Discharge Congestive Heart Failure Inclusion Criteria At DC or during hospital stay patient has or had the following: CHF DIAGNOSIS No Discharge Core Measures Meds if any: Prescribed or Continued at Discharge Meds if any: NOT Prescribed or Continued at Discharge Cerebrovascular accident Inclusion Criteria At DC or during hospital stay patient has or had the following: CVA/TIA Diagnosis No Discharge Core Measures Meds if any: Prescribed or Continued at Discharge Meds if any: NOT Prescribed or Continued at Discharge Venous thromboembolism Inclusion Criteria VTE Diagnosis No VTE Type NONE VTE Confirmed by (Test) NONE Discharge Core Measures - Per Current guidelines, there needs to be overlap - treatment for the first 5 days of Warfarin therapy. - If discharged on Warfarin prior to 5 days of - overlap therapy, the patient will need to be - assessed for post discharge needs including - *Post discharge parental anticoagulation - *Warfarin and/or parental anticoagulation education - *Follow up date to check INR post discharge At least 5 days overlap therapy as Inpatient No Meds if any: Prescribed or Continued at Discharge Note: Overlap Therapy is Warfarin and Anticoagulant Meds if any: NOT Prescribed or Continued at Discharge
--- NOTE | 2016-07-27 13:15 | PN- Att Addend ---
Attending MD Review Statement Attending Statement Attending MD Statement: examined this patient, discuss w/resident/PA/CILNICAL SCIENTIST, agreed w/resident/PA/CILNICAL SCIENTIST, reviewed EMR data (avail), discussed w/nursing Attending Assessment/Plan: 66-year-old gentleman with a PMH significant for PVD, recent cellulitis/ osteomyelitis in LLE s/p BKA at [place] a few weeks ago , MRSA bacteremia, infective endocarditis, candidemia, well-controlled IDDM type 2, Afib on Eliquis , HTN, HLD, HFpEF, mitral valve repair done in 2012, COPD not on home oxygen, colon cancer s/p resection, prostrate cancer (s/p remission), Waldenstrom's macroglobulinemia, CKD stage IIIB, chronic anemia, chronic pain syndrome, opioid dependence, alcohol abuse, remote IVDA, and hepatitis C s/p treatment, presented with rt foot redness and laceration which he noticed on 07/20. Pt presented to the ER and had sutures placed. Pt was seen in ER again on 07/24 and was thought to have cellulitis but pt signed out AMA and came back again on day of admission for evaluation. A/p- Cellulitis - bone scan negative for osteomyelitis. Awaiting podiatry consult- if stable will be dced home on oral augmentin. Will dc femoral line. CKD- stable
[2016-07-27] MEDS ORDERED: ATIVAN0.5 M1 PO (14:03)
[2016-07-27] MEDS ORDERED: NICOTINE PATCH1 EAC2 TD (14:03)
--- NOTE | 2016-07-29 20:20 | Discharge Summary ---
Visit Information Visit Dates Admission Date: 07/25/16 Discharge Date: 07/27/16 Hospital Course Course Attending Physician: DEMETRIUS ARCEO,VIKTOR Schneider Primary Care Physician: TATIANA ARCEO,[facility] Hospital Course: Mr. Ling is a 66-year-old gentleman with a PMH significant for PVD, h/o compression fracture in LLE s/p hardware placement complicated by MSSA cellulitis/osteomyelitis in LLE s/p BKA at [place], MRSA bacteremia, infective endocarditis, candidemia, well-controlled IDDM type 2, Afib on Coumadin, HTN, HLD, HFpEF, mitral valve repair, pHTN, COPD not on home oxygen, colon cancer s/p resection, prostrate cancer (s/p remission), Waldenstrom's macroglobulinemia, CKD stage IIIB, chronic anemia, chronic pain syndrome, opioid dependence, alcohol abuse (40+ hx with DT seizures), remote IVDA, and hepatitis C s/p treatment, last admitted in May 2016 for LLE cellulitis and osteomyelitis, who presented to [facility] with a laceration on the right sole with worsening erythema and edema, most likely 2/2 cellulitis. He was admitted to general medicine floor with the following problems: # Left lower extremity cellulitis with possible underlying osteomyelitis of left foot Patient presented with worsening right lower extremity edema and erythema. No signs of SIRS. He was afebrile with a normal white count. X-ray showed questionable subtle cortical irregularity in the head of the right fifth metatarsal. Bone scan showed no abnormalities suspicious for osteomyelitis in the left foot. Patient initially received IV Unasyn which was transitioned to Augmentin. Patient was discharged Augmentin to complete a total antibiotic course of 10 days. He was instructed to follow up with the systems tester Dr. Arce upon discharge. # Chronic pain syndrome with opiod dependance: He has chronic pain in the back and left foot with phantom pain s/p BKA. Patient was kept on home meds gabapentin, trazodone and Roxicodone 15mg PO Q4P. # Atrial fibrillation on Eliquis with history of poor compliance: EKG on admission shows Afib with rate controlled. Patient was kept on home med Eliquis 5mg PO BID. # HTN Patient was kept on home meds Toprol XL 25mg PO daily and hydralazine. # HLP Patient was kept on home meds lipitor 20 mg daily and ASA 81 mg daily. # Tobacco abuse: Discussed with patient benefits of quitting and risks of continued smoking. Patient was given a nictoine patch. # Diabetes mellitus: Patient carries h/o IDDM type 2, well controlled. HgA1C in December 2015 was 5.4. He takes levemir 14U daily at home. Patient was kept on NovoLog SSI with Accu- Cheks. # COPD Patient was kept on home meds Symbicort and Spiriva. # CKD: Likely secondary to HTN and diabetic nephrosclerosis. Patient was kept on home meds Vitamin D 1000 IU daily and sodium bicarb 650mg PO BID Allergies: Coded Allergies: NO KNOWN ALLERGIES (06/07/16) Disposition Summary Disposition Principal Diagnosis: Cellulitis Additional Diagnosis: N/A Discharge Disposition: home or self care Discharge Instructions General Discharge Information Code Status: Full Code Patient's Diet: Heart healthy Patient's Activity: As tolerated Follow-Up Instructions/Appts: Please follow up with Dr Arce with 1-2 days after discharge Please follow up with your primary care in 1 week Please seek immediate attention if your leg redness or swelling worsens. Medications at Discharge Discharge Medications: Continue taking these medications: Gabapentin (Gabapentin) 300 MG CAPSULE 2 Capsule ORAL THREE TIMES DAILY Qty = 180 Comments: Last Taken: 07/27/16 Time: 10 AM Tamsulosin HCl (Tamsulosin HCl) 0.4 MG CAP.ER.24H 1 Capsule ORAL DAILY Qty = 30 Comments: Last Taken: 07/27/16 Time: 10 AM Budesonide/Formoterol Fumarate (Symbicort 160-4.5 Mcg Inhaler) 10.2 GM HFA.AER.AD 2 Puff Inhale through mouth TWICE DAILY Qty = 10 Comments: Last Taken:07/27/16 Time: 10AM Atorvastatin Calcium (Atorvastatin Calcium) 20 MG TABLET 1 Tablet ORAL DAILY Qty = 30 Comments: Last Taken: 07/26/16 Time: 5PM Vitamin E (Dl,Tocopheryl Acet) (Vitamin E) 400 UNIT CAPSULE 2 Capsule ORAL DAILY Comments: NOT GIVEN IN HOSPITAL Metoprolol Succ XL (Toprol XL) 25 MG TAB.ER.24H 1 Tablet ORAL DAILY Comments: Last Taken: 07/27/16 Time: 10 AM Aspirin (Ecotrin*) 81 MG TABLET. 1 Tablet ORAL DAILY Comments: Last Taken: 07/27/16 Time: 10AM Folic Acid (Folic Acid) 1 MG TABLET 1 Tablet ORAL DAILY Qty = 30 Comments: Last Taken: 07/27/16 Time: 10AM Duloxetine HCl (Duloxetine HCl) 60 MG CAPSULE.DR 1 Capsule ORAL Every Morning Qty = 90 Comments: Last Taken: 07/27/16 Time: 10AM Cholecalciferol (Vitamin D3) (Vitamin D-3) 2,000 UNIT TABLET 1 Tablet ORAL DAILY Qty = 30 Comments: Last Taken: 07/27/16 Time: 10AM Trazodone HCl (Trazodone HCl) 150 MG TABLET 1 Tablet ORAL Every night Qty = 3 Comments: Last Taken: 07/26/16 Time: 10 PM Albuterol Sulfate (Ventolin Hfa) 90 MCG HFA.AER.AD 2 Puff Inhale through mouth EVERY 4-6 HOURS NEEDED as needed for COPD Qty = 18 Comments: NOT GIVEN WHILE IN HOSPITAL Oxycodone HCl (Roxicodone) 15 MG TABLET 1 Tablet ORAL EVERY 4 HOURS NEEDED as needed for Severe pain Qty = 42 Comments: Last Taken: 07/27/16 Time: 12 PM Calcium Carbonate (Calcium Carbonate) 200 MG CALCIUM (500 MG) TAB.CHEW 500 Milligram ORAL DAILY Days = 28 Comments: Last Taken: 07/27/16 Time: 10AM Polyethylene Glycol 3350 (Miralax) 17 GRAM/DOSE POWDER 17 Gram ORAL DAILY as needed for CONSTIPATION Days = 30 Comments: NOT GIVEN IN HOSPITAL Sennosides/Docusate Sodium (Senna Plus Tablet) 8.6 MG-50 MG TABLET 2 Tablet ORAL DAILY as needed for CONSTIPATION Days = 28 Comments: NOT GIVEN IN HOSPITAL Hydralazine HCl (Hydralazine HCl) 25 MG TABLET 1 Tablet ORAL TWICE DAILY Comments: Last Taken: 07/27/16 Time: 10AM Insulin Detemir (Levemir) 100 UNIT/ML VIAL 14 Units Inject into fatty tissue DAILY Comments: Last Taken: 07/27/16 Time: 10AM Apixaban (Eliquis) 5 MG TABLET 1 Tablet ORAL TWICE DAILY Qty = 14 Comments: Last Taken: 07/27/16 Time: 10AM Lorazepam (Lorazepam) 0.5 MG TABLET 1 Tablet ORAL TWICE DAILY Qty = 10 Comments: Last Taken: 07/27/16 Time: 10AM Thiamine HCl (Vitamin B-1) 100 MG TABLET 1 Tablet ORAL DAILY Qty = 30 Comments: NOT GIVEN IN HOSPITAL Sodium Bicarbonate (Sodium Bicarbonate) 650 MG TABLET 1 Tablet ORAL TWICE DAILY Qty = 60 Comments: Last Taken: 07/27/16 Time: 10AM Duloxetine Hydrochloride (Cymbalta) 30 MG CAPSULE.DR 1 Capsule ORAL Every night Comments: Last Taken: 07/26/16 Time: 10PM Morphine Sulfate (Morphine Sulfate ER) 15 MG TABLET.ER 1 Tablet ORAL 2 x Daily as needed Start taking the following new medications: Amoxicillin/Potassium Clav (Augmentin 875-125 Tablet) 875 MG-125 MG TABLET 1 Tablet ORAL TWICE DAILY Qty = 16 No Refills Comments: NOT GIVEN IN HOSPITAL Nicotine (Nicotine Patch) 14 MG/24 HOUR PATCH.TD24 1 PATCH TRANSDERM DAILY Qty = 14 No Refills Comments: Last Taken: 07/27/16 Time: 10AM Copies To: NICHELLE ARCE DPM, MD,ZARINA Attending MD Review Statement Documenting Attending: DEMETRIUS ARCEO,VIKTOR Schneider Other Findings: Pt being dced home on oral abx, bone scan was negative for osteomyelitis. Please see my attending note from day of discharge for more details.
== END 2016-07-27 14:50 | disposition home health service (06) | DRG 603 ==
LOC: ENRESERVDT → ENRESERVTM → ERH 07:43 → ERHI 13:08 → ENPENDDIS 13:08 → 2NA 13:08 → EDBEDREQ 15:59 → 2NA 18:08
PROVIDERS: Internal Medicine; Physician Assistant; ADMIT Internal Medicine
DX: L03.115 Cellulitis of right lower limb (principal); I50.32 Chronic diastolic (congestive) heart failure; T81.89XA Other complications of procedures, not elsewhere classified, initial encounter; I11.0 Hypertensive heart disease with heart failure; I13.0 Hypertensive heart and chronic kidney disease with heart failure and stage 1 through stage 4 chronic kidney disease, or unspecified chronic kidney disease; F11.20 Opioid dependence, uncomplicated; F10.239 Alcohol dependence with withdrawal, unspecified; N18.3 Chronic kidney disease, stage 3 (moderate); B18.2 Chronic viral hepatitis C; Z72.0 Tobacco use; L89.510 Pressure ulcer of right ankle, unstageable; L89.890 Pressure ulcer of other site, unstageable; E11.9 Type 2 diabetes mellitus without complications; I48.91 Unspecified atrial fibrillation; Z79.01 Long term (current) use of anticoagulants; E78.5 Hyperlipidemia, unspecified; J44.9 Chronic obstructive pulmonary disease, unspecified; K21.9 Gastro-esophageal reflux disease without esophagitis; Z95.2 Presence of prosthetic heart valve; N40.0 Benign prostatic hyperplasia without lower urinary tract symptoms; Z85.038 Personal history of other malignant neoplasm of large intestine; Z85.46 Personal history of malignant neoplasm of prostate; Z79.4 Long term (current) use of insulin
CPT/HCPCS: 2NAP; 36415; 73630-RT; 80307; 81001; 82436; 87040; 93005; 93010; 96365; 96372; 99291; A9561; G0480; J3490

== ENCOUNTER 2016-08-17 00:11 | Emergency (ER) | payer OTHER, MEDICARE ==
[~2016-08-17 00:11] MED LIST changes: +MORPHINE SULFAT15 M3 PO; +NICOTINE PATCH1 EAC2 TD; +PERCOCET 5-3251 EACH PO
--- NOTE | 2016-08-17 00:29 | ED DYSPNEA/ASTHMA COMPLAINT ---
History of Present Illness General Chief Complaint: Dyspnea (COPD, CHF, Other) Stated Complaint: BIBA FOR DIFF BREATHING Source: patient, old records, EMS Exam Limitations: poor historian Vital Signs & Intake/Output Vital Signs & Intake/Output Vital Signs Date Time Temp Pulse Resp B/P Pulse O2 O2 Flow FiO2 Ox Delivery Rate 08/17 0631 108 18 158/88 98 Room Air 08/17 0549 97.6 112 20 180/110 98 Room Air 08/17 0546 97.6 112 20 180/110 08/17 0546 97.6 112 20 180/110 08/17 0546 97.6 112 20 180/110 08/17 0248 175/100 08/17 0244 96.9 107 18 180/103 95 Room Air 08/17 0100 98 Room Air 08/17 0026 97.0 86 18 174/93 99 Room Air Allergies Coded Allergies: NO KNOWN ALLERGIES (06/07/16) Reconcile Medications Albuterol Sulfate (Ventolin Hfa) 90 MCG HFA.AER.AD 2 PUF INH Q4-6 PRN PRN COPD (Reported) Amoxicillin/Potassium Clav (Augmentin 875-125 Tablet) 875 MG-125 MG TABLET 1 TAB PO BID INFECTION Apixaban (Eliquis) 5 MG TABLET 1 TAB PO BID BLOOD THINNER (Reported) Aspirin (Ecotrin*) 81 MG TABLET.DR 1 TAB PO DAILY HEART/BLOOD (Reported) Atorvastatin Calcium 20 MG TABLET 1 TAB PO DAILY CHOLESTEROL (Reported) Budesonide/Formoterol Fumarate (Symbicort 160-4.5 Mcg Inhaler) 10.2 GM HFA.AER.AD 2 PUF INH BID RESPIRATORY (Reported) Calcium Carbonate 200 MG CALCIUM (500 MG) TAB.CHEW 500 MG PO DAILY High phosphorus level Cholecalciferol (Vitamin D3) (Vitamin D-3) 2,000 UNIT TABLET 1 TAB PO DAILY Supplement Duloxetine HCl 60 MG CAPSULE.DR 1 CAP PO QAM depression (Reported) Duloxetine Hydrochloride (Cymbalta) 30 MG CAPSULE.DR 1 CAP PO QPM DEPRESSION (Reported) Folic Acid 1 MG TABLET 1 TAB PO DAILY OTHER Gabapentin 300 MG CAPSULE 2 CAP PO TID NERVE PAIN (Reported) Hydralazine HCl 25 MG TABLET 1 TAB PO BID BP (Reported) Insulin Detemir (Levemir) 100 UNIT/ML VIAL 14 UNITS SC DAILY DM (Reported) Lorazepam 0.5 MG TABLET 1 TAB PO BID ANXIETY (Reported) Metoprolol Succ XL (Toprol XL) 25 MG TAB.ER.24H 1 TAB PO DAILY BP (Reported) Morphine Sulfate (Morphine Sulfate ER) 15 MG TABLET.ER 1 TAB PO BIDP PAIN ( Reported) Nicotine (Nicotine Patch) 14 MG/24 HOUR PATCH.TD24 1 PATCH TD DAILY tobacco withdrawal Oxycodone HCl (Roxicodone) 15 MG TABLET 1 TAB PO Q4P PRN Severe pain Polyethylene Glycol 3350 (Miralax) 17 GRAM/DOSE POWDER 17 GM PO DAILY PRN CONSTIPATION Sennosides/Docusate Sodium (Senna Plus Tablet) 8.6 MG-50 MG TABLET 2 TAB PO DAILY PRN CONSTIPATION Sodium Bicarbonate 650 MG TABLET 1 TAB PO BID UNKNOWN (Reported) Tamsulosin HCl 0.4 MG CAP.ER.24H 1 CAP PO DAILY PROSTATE (Reported) Thiamine HCl (Vitamin B-1) 100 MG TABLET 1 TAB PO DAILY SUPPLEMENT (Reported) Trazodone HCl 150 MG TABLET 1 TAB PO QPM SLEEP Vitamin E (Dl,Tocopheryl Acet) (Vitamin E) 400 UNIT CAPSULE 2 CAP PO DAILY SUPPLEMENT (Reported) Triage Nurses Notes Reviewed? yes HPI: Patient presents for evaluation of shortness of breath that began abruptly earlier this evening. Patient is also complaining of lower chest pain but he is unable to describe what it feels like for how intensity is. He states that it did begin along with his shortness of breath. He admits to cigarette smoking and daily alcohol use. Past History Travel History Traveled to [place] past 21 day No Medical History Any Pertinent Medical History? see below for history Neurological: delerium tremens, seizure EENT: sinusitis Cardiovascular: AFIB, CHF, hypertension, mitral regurgitation, endocarditis Staph aureus endocarditis Respiratory: COPD Gastrointestinal: GERD, Diarrhea, nausea Hepatic: hepatitis C Renal: chronic kidney disease, B/L renal cysts Musculoskeletal: degen joint disease, CHRONIC BACK PAIN R FOOT NONHEALING WOUND Psychiatric: alcohol dependence, anxiety Endocrine: diabetes Blood Disorders: anemia, Waldenstrohm's macroglobulinemia Cancer(s): colon/rectal cancer (operated), prostate cancer (treated), WALDENSTROM LYMPHOMA MSWS/Reproductive: NONE History of MRSA: Yes History of VRE: No History of CDIFF: No Influenza Vaccine: 03/26/16 Surgical History Surgical History: colon resection, MITRAL VALVE REPAIR left ankle surgery/ arthrodesis Psychosocial History Who do you live with Brother Services at Home None What is your primary language Wallisian Tobacco Use: Refused to answer Family History Family History, If Any: FATHER, , Age 87; Cause: Prostate CA. FH: diabetes mellitus FH: stroke FHx: prostate cancer PATERNAL GRANDMOTHER, ; Cause: Colon cancer. MOTHER, , Age 87; Cause: Old age. Hx Contributory? No Review of Systems Review of Systems Constitutional: Reports: no symptoms. EENTM: Reports: no symptoms. Respiratory: Reports: see HPI. Cardiovascular: Reports: no symptoms. GI: Reports: no symptoms. Genitourinary: Reports: no symptoms. Musculoskeletal: Reports: no symptoms. Skin: Reports: no symptoms. Neurological/Psychological: Reports: no symptoms. Hematologic/Endocrine: Reports: no symptoms. Immunologic/Allergic: Reports: no symptoms. All Other Systems: Reviewed and Negative Physical Exam Physical Exam Respiratory: SEE BELOW Comments: Gen.: Well-nourished, well-developed, no acute respiratory distress. EtOH-like odor. Head: Normocephalic, atraumatic. Eyes: Normal inspection bilaterally Ears: Normal inspection bilaterally Nose: Normal inspection Throat/mouth : Moist mucosa Neck: Supple, full range of motion, no goiter Heart: Regular rate and rhythm, no murmurs rubs or gallops Lungs: Clear to auscultation bilaterally with normal air entry Chest: Nontender Back: Normal range of motion Abdomen: Soft, nontender, nondistended, normal bowel sounds Extremities: Bilateral BKA'S Neurologic: Cranial nerves grossly intact, speech is clear Skin: warm and dry Psychiatric: Calm, cooperative, no apparent delusions or hallucinations Core Measures ACS in differential dx? No Severe Sepsis Present: No Septic Shock Present: No Progress Differential Diagnosis: asthma, bronchitis, CHF, COPD, pneumonia Plan of Care: Orders Procedure Date/time Status CBC WITHOUT DIFFERENTIAL 08/17 0029 Complete EKG 08/17 0018 Active Laboratory Tests 08/17/16 0235: CBC w Diff MAN DIFF ORDERED, RBC 3.35 L, MCV 93.0, MCH 32.5 H, RDW 18.7 H, MPV 5.9 L, Gran % 80.4 H, Lymphocytes % 9.1 L, Monocytes % 9.7 H, Eosinophils % 0.8, Basophils % 0 L, Absolute Granulocytes 4.5, Absolute Lymphocytes 0.5 L, Absolute Monocytes 0.5, Absolute Eosinophils 0, Absolute Basophils 0, Platelet Estimate ADEQUATE, Normocytic RBCs VERIFIED, Hypochromic- Microcytic 1+, PUBS MCHC 35.0 08/17/1628: Serum Alcohol Cancelled Diagnostic Imaging: Discussed w/RAD: Radiology Read. CXR Impression: PATIENT: WAGNER BORDEN PRESENT AGE: 66 PATIENT ACCOUNT NO: [id number] : 51 LOCATION: ER ORDERING PHYSICIAN: GARRICK KING MD SERVICE DATE: 08/17/16 EXAM TYPE: RAD - XRY-PORTABLE CHEST XRAY EXAMINATION: XR PORTABLE CHEST CLINICAL INFORMATION: CHF. Dyspnea. COMPARISON: Chest x-ray 07/25/2016 TECHNIQUE: Portable AP portable view of the chest was obtained. 12:40 AM FINDINGS: Cardiomegaly with median sternotomy. There is mild central pulmonary vascular prominence similar to chest x-ray 07/25. No infiltrate. Minimal blunting of the right costophrenic angle due to a small new right pleural effusion. IMPRESSION: Mild central pulmonary vascular prominence, small right pleural effusion. Cardiomegaly. DICTATED BY: BULMARO NORTON MD DATE/TIME DICTATED:08/17/16105 SHIFT SUPERVISOR RN:JENELLE DATE/TIME TRANSCRIBED:08/17/16105 CONFIDENTIAL, DO NOT COPY WITHOUT APPROPRIATE AUTHORIZATION. <Electronically signed in Other Vendor System> SIGNED BY: BULMARO NORTON MD 08/17/16110 Initial ED EKG: AFIB Prior EKG: unchanged Comments: 08/17/2016 3:47:28 AM we had great difficulty obtaining blood work from Wagner. Ultimately I performed a right femoral blood draw but was only able to obtain a CBC. Unfortunately he declined additional attempts to draw the blood. His emergency department stay has been otherwise uneventful and he has been medicated with Ativan, his usual medication for anxiety. Departure Departure Disposition: HOME OR SELF CARE Condition: Stable Clinical Impression Primary Impression: Dyspnea Qualifiers: Dyspnea type: unspecified Qualified Code: R06.00 - Dyspnea, unspecified Referrals: ZARINA SIMPSON MD (PCP/Family) Additional Instructions: Follow-up with your primary care doctor tomorrow for reevaluation of your shortness of breath and blood pressure. Low-salt diet. Rest, no exertion. Continue your current medications. Return if any concerns or sudden worsening. Please note that there might be incidental findings in your evaluation that are unrelated to the current emergency department visit. Please notify your primary care doctor about this emergency department visit in order to obtain and review all of the testing performed so that these incidental findings can be monitored as needed. If you had an x-ray performed, please understand that some fractures may not be seen on the initial set of x-rays. If your symptoms persist you might need a repeat set of x-rays to check for such a fracture. If you had a laceration evaluated, please understand that foreign bodies such as glass or wood may not be visible to the naked eye or on plain x-rays. If the wound becomes red, swollen, increasingly more painful or if there is any drainage from the wound, please have it reevaluated by a physician for the possibility of a retained foreign body. Departure Forms: Customer Survey General Discharge Information Critical Care Note Critical Care Note Critical Care Time: non-applicable
--- NOTE | 2016-08-17 01:11 | RADIOLOGY REPORT ---
EXAMINATION: XR PORTABLE CHEST CLINICAL INFORMATION: CHF. Dyspnea. COMPARISON: Chest x-ray 07/25/2016 TECHNIQUE: Portable AP portable view of the chest was obtained. 12:40 AM FINDINGS: Cardiomegaly with median sternotomy. There is mild central pulmonary vascular prominence similar to chest x-ray 07/25/2016. No infiltrate. Minimal blunting of the right costophrenic angle due to a small new right pleural effusion. IMPRESSION: Mild central pulmonary vascular prominence, small right pleural effusion. Cardiomegaly.
[2016-08-17 02:42] LABS: ABSOLUTE BASOPHIL COUNT 0 /CUMM (0.0-0.2); ABSOLUTE MONOCYTE COUNT 0.5 /CUMM (0.10-0.60); BASOPHIL % 0 % (0.0-2.0); MEAN PLATELET VOLUME 5.9 FL (7.4-10.4)
[2016-08-17 02:45] LABS: ABSOLUTE EOSINOPHIL COUNT 0 /CUMM (0.0-0.7); ABSOLUTE GRANULOCYTE CT 4.5 /CUMM (1.4-6.5); ABSOLUTE LYMPH COUNT 0.5 /CUMM (1.2-3.4); EOSINOPHIL % 0.8 % (0-5); GRANULOCYTE % 80.4 % (42.2-75.2); HEMATOCRIT 31.2 % (42-52); MEAN CORPUSCULAR HGB 32.5 PG (27.0-31.0); PLATELET COUNT 294 /CUMM (130-400); RBC DISTRIBUTION WIDTH 18.7 % (11.5-14.5); RED BLOOD CELL CT 3.35 /CUMM (4.70-6.10); WHITE BLOOD CELL COUNT 5.6 /CUMM (4.8-10.8)
[2016-08-17 06:31] VITALS: BP 158/88
== END 2016-08-17 06:58 ==
LOC: ERH 00:11
PROVIDERS: Emergency Medicine
DX: R06.00 Dyspnea, unspecified (principal); R07.9 Chest pain, unspecified
CPT/HCPCS: 93005; 93010; G0480; J3101; J7508

== ENCOUNTER 2016-10-29 19:15 | Inpatient (IN) | payer OTHER, MEDICARE ==
[~2016-10-29] VITALS: Ht 180.3 cm; Wt 110.7 kg
--- NOTE | 2016-10-29 19:30 | ED GENERAL ADULT ---
History of Present Illness General Chief Complaint: ETOH/Drug Related Complaint Stated Complaint: BIBA ETOH Source: patient, old records Exam Limitations: clinical condition Vital Signs & Intake/Output Vital Signs & Intake/Output Vital Signs Date Time Temp Pulse Resp B/P B/P Pulse O2 O2 Flow FiO2 Mean Ox Delivery Rate 10/30 1305 97.4 100 18 124/90 05/07 1303 110 22 124/90 98 Room Air / 1041 97.1 90 18 159/86 05/07 1039 97.1 90 18 159/86 05/07 1039 97.1 90 18 159/86 05/07 1039 97.1 90 18 159/86 05/07 0929 98.4 105 18 174/112 05/07 0920 97.8 105 18 174/112 99 Room Air 05/ 0734 96.4 98 20 180/100 05/07 0733 96.4 78 18 180/100 99 Room Air / 0610 99.0 106 24 139/89 05/07 0557 99.0 106 24 139/89 96 Room Air / 0540 98.7 121 18 165/91 05/07 0403 165/97 05/07 0333 98.7 121 20 165/97 95 Room Air 05/ 0113 100.0 112 20 189/87 05/07 0112 100.0 112 20 189/87 98 Nasal 2.0L Cannula 10/29 2345 98.0 107 20 180/85 05/06 2332 98.0 107 20 180/85 100 Nasal 2.0L Cannula 10/29 2118 97.2 90 20 177/95 92 Nasal 2.0L Cannula 10/29 1919 97.8 81 18 149/96 97 Room Air ED Intake and Output 10/30 0000 0506 1200 Intake Total Output Total 400 Balance -400 Output, Urine 400 Patient 190 lb Weight Allergies Coded Allergies: NO KNOWN ALLERGIES (06/07/16) Reconcile Medications Albuterol Sulfate (Ventolin Hfa) 90 MCG HFA.AER.AD 2 PUF INH Q4-6 PRN PRN COPD (Reported) Amlodipine Besylate (Norvasc) (Unknown Strength) TABLET (Unknown Dose) PO DAILY BP (Reported) Aspirin (Ecotrin*) 81 MG TABLET.DR 1 TAB PO DAILY HEART/BLOOD (Reported) Atorvastatin Calcium 20 MG TABLET 1 TAB PO DAILY CHOLESTEROL (Reported) Budesonide/Formoterol Fumarate (Symbicort 160-4.5 Mcg Inhaler) 10.2 GM HFA.AER.AD 2 PUF INH BID RESPIRATORY (Reported) Duloxetine HCl 60 MG CAPSULE. 1 CAP PO QAM depression (Reported) Folic Acid 1 MG TABLET 1 TAB PO DAILY OTHER Gabapentin 300 MG CAPSULE 2 CAP PO TID NERVE PAIN (Reported) Insulin Detemir (Levemir) 100 UNIT/ML VIAL 14 UNITS SC DAILY DM (Reported) Metoprolol Succ XL (Toprol XL) 25 MG TAB.ER.24H 1 TAB PO DAILY BP (Reported) Tamsulosin HCl 0.4 MG CAP.ER.24H 1 CAP PO DAILY PROSTATE (Reported) Triage Note: PRESENTS TO THE ED FOR EVALUATION OF GENERALIZED MALAISE AND DIFFICULTY BREATHING. ADMITTS TO DRINKING ETOH TODAY HOWEVER DOES NOT RECALL AMOUNT. PT ALSO REPORTS VISUAL HALLUCINATIONS. ATTENDING AT THE BEDSIDE FOR EVALUATION. PT RECEIVES HELPS FROM A FRIEND HOWEVER THE FRIEND HAS NOT BEEN THERE IN THE PAST SEVERAL DAYS FOR HE HAS NOT BEEN COMPLIANT WITH MEDICATIONS AND BEGAN DRINKING AGAIN. Triage Nurses Notes Reviewed? yes Onset: Abrupt Duration: day(s): (1) Timing: multiple episodes today Injury Environment: home Severity: moderate No Modifying Factors: none HPI: This is a 66-year-old male with history of COPD, A. fib, insulin dependent diabetes, EtOH abuse and seizures who presents to the ER by EMS from home for chief complaint of not feeling well. He complains feeling short of breath. He states that he had a friend call EMS to bring him to the ER for evaluation. EMS reports that a friend he usually takes care of him was arrested and went to [facility]. They're concerned that he doesn't have anybody to take care of him at home. He states he just got out of rehabilitation last week. Prior to that he was admitted to [facility] hospital procedures. He states on the way home from rehabilitation he went to the package store has been drinking ever since. He states that he did not take his medications prior to arrival. (ANTHONY ARCEO,BERTHA) Past History Travel History Traveled to [place] past 21 day No Medical History Any Pertinent Medical History? 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 FH: diabetes mellitus FH: stroke FHx: prostate cancer PATERNAL GRANDMOTHER, ; Cause: Colon cancer. MOTHER, , Age 87; Cause: Old age. Hx Contributory? No (BERTHA CRUZ MD) Review of Systems Review of Systems Constitutional: Denies: chills, fever. EENTM: Reports: no symptoms. Respiratory: Reports: short of breath. Denies: sputum production. Cardiovascular: Denies: chest pain. GI: Denies: abdominal pain. Genitourinary: Reports: no symptoms. Musculoskeletal: Reports: no symptoms. Skin: Reports: no symptoms. Neurological/Psychological: Reports: anxiety. Hematologic/Endocrine: Denies: bruising, bleeding, polyuria, polydipsia. Immunologic/Allergic: Denies: splenectomy. All Other Systems: Reviewed and Negative (BERTHA CRUZ MD) Physical Exam Physical Exam General Appearance: well developed/nourished, alert, awake, anxious, mild distress, moderate distress Head: atraumatic, normal appearance Eyes: Bilateral: normal appearance, PERRL, EOMI. Ears, Nose, Throat: hearing grossly normal Neck: normal inspection, supple, full range of motion Respiratory: normal breath sounds, chest non-tender, no respiratory distress Cardiovascular: regular rate/rhythm Gastrointestinal: soft, non-tender, reducible hernia, surgical scars Rectal: GUIAC POSITIVE DARK BROWN STOOL Back: normal inspection Extremities: left aka Neurologic/Psych: no motor/sensory deficits, awake, alert, oriented x 3 Skin: intact, normal color Core Measures ACS in differential dx? No CVA/TIA Diagnosis: No Severe Sepsis Present: No Septic Shock Present: No (ANTHONY ARCEO,BERTHA) Progress Differential Diagnoses I considered the following diagnoses in my evaluation of the patient: [ETOH INTOXICATION, COPD, PNA, CHF, ] Plan of Care: Orders Procedure Date/time Status Consistent Carbohydrate 2 10/30 D Active OXYGEN SETUP (GEN) 10/30 1239 Active Saline Lock 10/30 1239 Active Admit to inpatient 10/30 1239 Active Vital Signs 10/30 1239 Active Activity/Ambulation 10/30 1239 Active Code Status 10/30 1239 Active King, Insertion/Removal/Asses 10/30 08 Active CULTURE,URINE 10/30 800 Active URINALYSIS 10/30 08 Complete Pathway - chart 10/30 0541 Active CASE MANAGEMENT CONSULT 10/30 06 Active URINE DRUG SCREEN FOR ER ONLY 10/30 0012 Complete EKG 10/30 0006 Active CIWA 10/29 2211 Active Telemetry/Event Designer 10/29 192 Active TROPONIN LEVEL 10/29 1926 Complete MAGNESIUM 10/29 1926 Complete ETHANOL 10/29 192 Complete COMPREHENSIVE METABOLIC PANEL 10/29 192 Complete CBC WITHOUT DIFFERENTIAL 10/29 1926 Complete B-TYPE NATRIURETIC PEP (BNP) 10/29 192 Complete Current Medications Sig/Avery Start time Last Medication Dose Stop Time Status Admin Lorazepam 1 MG Q12H 11/01 0000 AC (Ativan) 11/01 1201 Lorazepam 1.5 MG Q6 10/31 0600 AC (Ativan) 10/31 1801 Lorazepam 2 MG Q6 10/30 1200 AC 10/30 (Ativan) 10/31 0000 1200 Amlodipine Besylate 10 MG DAILY 10/30 1000 UNVr 10/30 (Norvasc) 1039 Aspirin Buffered 81 MG DAILY 10/30 1000 UNVr 10/30 (Ecotrin) 1039 Atorvastatin Calcium 20 MG DAILY 10/30 1000 UNVr 10/30 (Lipitor) 1039 Budesonide/ 2 PUF BID 10/30 1000 UNVr 10/30 Formoterol Fumarate 1039 (Symbicort) Duloxetine HCl 60 MG DAILY 10/30 1000 UNVr 10/30 (Cymbalta) 1039 Folic Acid 1 MG DAILY 10/30 1000 UNVr 10/30 (Folic Acid) 11/01 1001 0918 Folic Acid 1 MG DAILY 10/30 999 UNVr (Folic Acid) Gabapentin 600 MG TID 10/30 1000 UNVr 10/30 (Neurontin) 1123 Insulin Detemir 14 UNITS DAILY 10/30 999 UNVr 10/30 (Levemir) 1039 Metoprolol Succinate 25 MG DAILY 10/30 999 UNVr 10/30 (Toprol XL) 1039 Multivitamins 1 TAB DAILY 10/30 999 UNVr 10/30 (Theragran Vitamins) 0918 Tamsulosin HCl 0.4 MG DAILY 10/30 999 UNVr 10/30 (Flomax) 1039 Thiamine HCl 100 MG DAILY 10/30 999 UNVr 10/30 (Vitamin B1) 11/01 1001 0918 Albuterol Sulfate 2 PUF Q4-6 PRN PRN 10/30 0930 UNVr 10/30 (Ventolin) 1039 Lorazepam 2 MG Q2P PRN 10/30 0645 AC (Ativan) Lorazepam 1 MG Q2P PRN 10/30 0645 AC 10/30 (Ativan) 0938 Laboratory Tests 10/30/16 0805: Urine Color PINK H, Urine Clarity HAZY H, Urine pH 6.5, Ur Specific [place] 1.020, Urine Protein >=300 H, Urine Ketones TRACE H, Urine Nitrite NEG, Urine Bilirubin NEG, Urine Urobilinogen 0.2, Ur Leukocyte Esterase MOD H, Ur Microscopic SEDIMENT EXAMINED, Urine RBC >75 H, Urine WBC > 75 H, Ur Epithelial Cells RARE, Urine Bacteria MANY H, Urine Hemoglobin LARGE H, Urine Glucose NEG 10/30/16 0014: Urine Opiates Screen 172.00, Methadone Screen < 40, Barbiturate Screen < 60, Ur Phencyclidine Scrn < 6.00, Amphetamines Screen < 100, U Benzodiazepines Scrn < 85, Urine Cocaine Screen < 50, Urine Cannabis Screen < 5.00 10/29/16 2230: Anion Gap 20 H, Estimated GFR 44 L, BUN/Creatinine Ratio 21.9, Glucose 115 H, Calcium 8.6, Magnesium 1.8, Total Bilirubin 0.5, AST 20, ALT 29, Alkaline Phosphatase 76, Troponin I 0.04, Nfz-H-[id number] Pept 2280 H, Total Protein 6.3, Albumin 3.8, Globulin 2.5, Albumin/Globulin Ratio 1.5, CBC w Diff NO MAN DIFF REQ, RBC 3.34 L, MCV 91.8, MCH 31.5 H, RDW 15.5 H, MPV 6.7 L, Gran % 81.9 H, Lymphocytes % 6.7 L, Monocytes % 11.2 H, Eosinophils % 0.2, Basophils % 0 L, Absolute Granulocytes 5.1, Absolute Lymphocytes 0.4 L, Absolute Monocytes 0.7 H, Absolute Eosinophils 0, Absolute Basophils 0, PUBS MCHC 34.4, Serum Alcohol 87.0 10/29/161926: Methadone Screen Cancelled, Barbiturate Screen Cancelled, Ur Phencyclidine Scrn Cancelled, Amphetamines Screen Cancelled, U Benzodiazepines Scrn Cancelled, Urine Cocaine Screen Cancelled, Urine Cannabis Screen Cancelled Microbiology 10/30 804 URINE ROUT: Urine Culture - RECD 3:28 AM PATIENT REPORTS FEELING BETTER. 2ND LITER NS INFUSING. (ANTHONY ARCEO,BERTHA) Diagnostic Imaging: Viewed by Me: Radiology Read. Discussed w/RAD: Radiology Read. CXR Impression: PATIENT: BRANDYN BORDEN PRESENT AGE: 66 PATIENT ACCOUNT NO: [id number] : 51 LOCATION: [facility] ORDERING PHYSICIAN: BERTHA CRUZ MD SERVICE DATE: 10/29/16 EXAM TYPE: RAD - XRY-PORTABLE CHEST XRAY EXAMINATION: XR PORTABLE CHEST CLINICAL INFORMATION: Dyspnea, hypoxia COMPARISON: 08/17/2016 TECHNIQUE: Portable frontal view of the chest was obtained. FINDINGS: Moderate enlargement of the cardiac silhouette. The mediastinal silhouette is unremarkable. The median sternotomy wires in place. The pulmonary vascularity is normal. The lungs are clear. No pleural effusions or pneumothorax. IMPRESSION: Stable cardiomegaly. No acute pulmonary finding. DICTATED BY: JASWANT GACRIA MD DATE/TIME DICTATED:10/29/162024 HEAD REFRIGERATION ENGINEER:JENELLE DATE/TIME TRANSCRIBED:10/29/162024 CONFIDENTIAL, DO NOT COPY WITHOUT APPROPRIATE AUTHORIZATION. <Electronically signed in Other Vendor System> SIGNED BY: JASWANT GARCIA MD 10/29/162029 Initial ED EKG: AFIB Prior EKG: unchanged Rhythm Strip: atrial fibrillation Hand-Off Endorsed To: SHORTY LIEBERMAN MD Endorsed Time: 0700 Pending: consult (CASE MANAGEMENT) (BERTHA CRUZ MD) Comments: King began causing pain with increased anxiety. Removed for comfort blood clot seen at drainage port. Recurrent suprapubic discomfort CBI ordered with drainage of clots. Suprapubic pain recurred with request for king removal. Advised the discomfort would recur. Nursing performing manual irrigation. (SHORTY LIEBERMAN MD) Departure Departure Disposition: STILL A PATIENT Condition: Stable Referrals: ZARINA SIMPSON MD Departure Forms: Customer Survey General Discharge Information (BERTHA CRUZ MD) Departure Time of Disposition: 1311 Clinical Impression Primary Impression: Urinary tract infection with hematuria Qualifiers: Urinary tract infection type: site unspecified Qualified Codes: N39.0 - Urinary tract infection, site not specified; R31.9 - Hematuria, unspecified Secondary Impressions: Alcohol withdrawal delirium Chronic renal insufficiency Qualifiers: Chronic kidney disease stage: stage 2 (mild) Qualified Code: N18.2 - Chronic kidney disease, stage 2 (mild) Guaiac positive stools Admission Note Spoke With: NAKUL CRUZ M.D Documentation of Exam: Documentation of any treatments & extenuating circumstances including Concerns Regarding Discharge (functional status, medication knowledge or non-compliance, living conditions, etc.) that warrant an admission rather than observation: Serial ciwa benzodiazepine to prevent alcohol withdrawal sequelae medication adjustment urology evaluation GI evaluation psychiatry evaluation continuing care discharge planning (SHORTY LIEBERMAN MD) Critical Care Note Critical Care Note Critical Care Time: 30-74 min (BERTHA CRUZ MD)
[2016-10-29] MEDS ORDERED: NORVASC5 M1 PO (20:08)
--- NOTE | 2016-10-29 20:30 | RADIOLOGY REPORT ---
EXAMINATION: XR PORTABLE CHEST CLINICAL INFORMATION: Dyspnea, hypoxia COMPARISON: 08/17/2016 TECHNIQUE: Portable frontal view of the chest was obtained. FINDINGS: Moderate enlargement of the cardiac silhouette. The mediastinal silhouette is unremarkable. The median sternotomy wires in place. The pulmonary vascularity is normal. The lungs are clear. No pleural effusions or pneumothorax. IMPRESSION: Stable cardiomegaly. No acute pulmonary finding.
[2016-10-29 22:40] LABS: ABSOLUTE BASOPHIL COUNT 0 /CUMM (0.0-0.2); ABSOLUTE EOSINOPHIL COUNT 0 /CUMM (0.0-0.7); ABSOLUTE GRANULOCYTE CT 5.1 /CUMM (1.4-6.5); ABSOLUTE LYMPH COUNT 0.4 /CUMM (1.2-3.4); ABSOLUTE MONOCYTE COUNT 0.7 /CUMM (0.10-0.60); BASOPHIL % 0 % (0.0-2.0); EOSINOPHIL % 0.2 % (0-5); GRANULOCYTE % 81.9 % (42.2-75.2); HEMATOCRIT 30.6 % (42-52); MEAN CORPUSCULAR HGB 31.5 PG (27.0-31.0); MEAN CORPUSCULAR HGB CONC 34.4 G/DL (33.0-37.0); MEAN CORPUSCULAR VOLUME 91.8 FL (80.0-94.0); MEAN PLATELET VOLUME 6.7 FL (7.4-10.4); PLATELET COUNT 212 /CUMM (130-400); RBC DISTRIBUTION WIDTH 15.5 % (11.5-14.5); RED BLOOD CELL CT 3.34 /CUMM (4.70-6.10); WHITE BLOOD CELL COUNT 6.3 /CUMM (4.8-10.8)
[2016-10-29 23:45] VITALS: BP 180/85
[2016-10-30] VITALS (10 sets, daily range): BP systolic 124–189; BP diastolic 86–112
--- NOTE | 2016-10-30 15:16 | History & Physical ---
General Information and [facility] MD Statement: I have seen and personally examined BRANDYN LING and documented this H&P. The patient is a 66 year old M who presented with a patient stated chief complaint of alcohol detox and hematuria. Source of Information: patient Exam Limitations: clinical condition History of Present Illness: Mr. Ling is a 66-year-old gentleman with past medical history of hepatitis C status post treatment, opiate dependence, diabetes, left leg below-knee amputation, alcohol overuse, alcohol withdrawal seizures, GI bleed, infective endocarditis, MRSA bacteremia, who presented to the ED on the evening of 2016 chief complaint of needing alcohol detox. Patient's last drink was yesterday afternoon, when he drank 2 pints of vodka. Around 7 PM, patient started experiencing difficulty breathing and asked his friends to bring him to the ED for alcohol detox. Patient has had alcohol withdrawal seizures in the past, required ICU admission and does admit to being intubated as well. In the ED, patient started having visual associations when he was trying to "catch avatar". He denies any suicidal or homicidal ideations. Patient states that he's been having off-and-on clots with urination, persistent burning with urination for the last few weeks. He has been unable to follow-up with his primary urologist Dr. Mattson, because he missed his appointment. Patient did not have any complaints of hematuria last night, but was unable to urinate this morning. After several attempts on [facility] catheterization, ED staff was unable to advance the catheter and following that patient started experiencing scant amounts of daniella blood from the urinary meatus. A urology consult was called to Dr. nixon, who came to the ED for further evaluation. Patient denied any fevers, chills, but did admit to frequency and burning during urination. Other systems are reviewed and negative, exceptions above. Allergies/Medications Allergies: Coded Allergies: NO KNOWN ALLERGIES (06/07/16) Home Med list Albuterol Sulfate (Ventolin Hfa) 90 MCG HFA.AER.AD 2 PUF INH Q4-6 PRN PRN COPD (Reported) Amlodipine Besylate (Norvasc) (Unknown Strength) TABLET (Unknown Dose) PO DAILY BP (Reported) Aspirin (Ecotrin*) 81 MG TABLET.DR 1 TAB PO DAILY HEART/BLOOD (Reported) Atorvastatin Calcium 20 MG TABLET 1 TAB PO DAILY CHOLESTEROL (Reported) Budesonide/Formoterol Fumarate (Symbicort 160-4.5 Mcg Inhaler) 10.2 GM HFA.AER.AD 2 PUF INH BID RESPIRATORY (Reported) Duloxetine HCl 60 MG CAPSULE.DR 1 CAP PO QAM depression (Reported) Folic Acid 1 MG TABLET 1 TAB PO DAILY OTHER Gabapentin 300 MG CAPSULE 2 CAP PO TID NERVE PAIN (Reported) Insulin Detemir (Levemir) 100 UNIT/ML VIAL 14 UNITS SC DAILY DM (Reported) Metoprolol Succ XL (Toprol XL) 25 MG TAB.ER.24H 1 TAB PO DAILY BP (Reported) Tamsulosin HCl 0.4 MG CAP.ER.24H 1 CAP PO DAILY PROSTATE (Reported) Past History Travel History Traveled to [place] past 21 day No Medical History Neurological: delerium tremens, seizure EENT: sinusitis Cardiovascular: AFIB, CHF, hypertension, mitral regurgitation, endocarditis Staph aureus endocarditis Respiratory: COPD Gastrointestinal: GERD, Diarrhea, nausea Hepatic: hepatitis C Renal: chronic kidney disease, B/L renal cysts Musculoskeletal: degen joint disease, CHRONIC BACK PAIN R FOOT NONHEALING WOUND Psychiatric: alcohol dependence, anxiety Endocrine: diabetes Blood Disorders: anemia, Waldenstrohm's macroglobulinemia Cancer(s): colon/rectal cancer (operated), prostate cancer (treated), WALDENSTROM 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 FH: diabetes mellitus FH: stroke FHx: prostate cancer PATERNAL GRANDMOTHER, ; Cause: Colon cancer. MOTHER, , Age 87; Cause: Old age. Psychosocial History Who Do You Live With? self Services at Home: None Primary Language: Romanian Living Will? unknown Power of Career Development Manager/HCP? unknown Functional Ability ADLs Independent: dressing, eating, toileting, bathing. Ambulation: independent (Nadine boot left foot) IADLs Independent: shopping, housework, finances, food prep, telephone, transportation , medication admin. Review of Systems Review of Systems Constitutional: Reports: see HPI. Exam & Diagnostic Data Last 24 Hrs of Vital Signs/I&O Vital Signs Date Time Temp Pulse Resp B/P B/P Pulse O2 O2 Flow FiO2 Mean Ox Delivery Rate 10/30 1305 97.4 100 18 124/90 05/07 1303 110 22 124/90 98 Room Air / 1041 97.1 90 18 159/86 05/07 1039 97.1 90 18 159/86 05/07 1039 97.1 90 18 159/86 05/07 1039 97.1 90 18 159/86 05/07 0929 98.4 105 18 174/112 05/07 0920 97.8 105 18 174/112 99 Room Air 05/07 0734 96.4 98 20 180/100 05/07 0733 96.4 78 18 180/100 99 Room Air 05/07 0610 99.0 106 24 139/89 05/07 0557 99.0 106 24 139/89 96 Room Air 05/07 0540 98.7 121 18 165/91 05/07 0403 165/97 05/07 0333 98.7 121 20 165/97 95 Room Air 05/ 0113 100.0 112 20 189/87 05/07 0112 100.0 112 20 189/87 98 Nasal 2.0L Cannula 10/29 2345 98.0 107 20 180/85 05/06 2332 98.0 107 20 180/85 100 Nasal 2.0L Cannula / 2118 97.2 90 20 177/95 92 Nasal 2.0L Cannula /06 1919 97.8 81 18 149/96 97 Room Air Intake & Output / 1600 05/07 0800 05/07 0000 Intake Total 220 2000 Output Total 500 400 Balance -280 2000 -400 Intake, IV 100 2000 Intake, Oral 120 Output, Urine 500 400 Patient 190 lb Weight Assessment/Plan Assessment: 66-year-old gentleman with history of alcohol dependence, opiate dependence, hepatitis C presented to the ED requesting detox. Additionally, patient was found to have scant amounts of blood at urinary meatus, after attempts for [facility] catheterization. 1. Alcohol dependence-to be admitted to medical floor. Ativan perceived a protocol, banana bag. MVI and thiamine. 2. Hematuria: Check PT/INR. Hold Eliquis until urology evaluation. Type and screen.Treat UTI with ?Cefrtriaxone. 3. Opiate dependence: We'll start meds as previously. 4. Paroxysmal atrial fibrillation: EKG revealing of atrial fibrillation at a controlled rate. Patient currently is on Eliquis, await urology recommendations postprocedure. Continue metoprolol. 5. Diabetes type 2: We'll continue home dose of insulin. 6. Benign prostatic hyperplasia: Continue tamsulosin. Full code. As Ranked By This Provider Problem List: 1. Alcohol dependence Core Measures/Miscellaneous Acute Coronary Syndrome ACS Diagnosis: No Cerebrovascular Accident CVA/TIA Diagnosis: No Congestive Heart Failure CHF Diagnosis: No Venous Thromboembolism VTE Risk Factors: Acute medical illness, Age > 40, Immobility, paresis No [facility] VTE prophylaxis d/t: No contraindications No VTE Pharm Prophylaxis d/t: Active bleeding VTE Diagnosis: No VTE Type: NONE VTE Confirmed by (Test): NONE Severe Sepsis Severe Sepsis Present: No Septic Shock Septic Shock Present: No Miscellaneous Documentation Attending Case Discussed With: NAKUL CRUZ M.D Primary Care Physician: JUANA SIMONS MD Patient sees these Specialists Dr. Mckeon Level of Patient Care: General Medicine
--- NOTE | 2016-10-30 15:51 | Cons- Urology ---
General Information and HPI Consulting Request Date of Consult: 10/30/16 Requested By: NAKUL CRUZ M.D History of Present Illness: 66 YEAR OLD MALE WITH HX OF ETHANOLISM; RADIATION THERAPY FOR PROSTATE CARCINOMA 7 YEARS AGO RETURNED TO ER WITH INABILITY TO VOID; HX OF REcurrent GROSS HEMATURIA catheterization attempted by nurse in er but patient became uncomfortable Allergies/Medications Allergies: Coded Allergies: NO KNOWN ALLERGIES (06/07/16) Home Med List: Albuterol Sulfate (Ventolin Hfa) 90 MCG HFA.AER.AD 2 PUF INH Q4-6 PRN PRN COPD (Reported) Amlodipine Besylate (Norvasc) (Unknown Strength) TABLET (Unknown Dose) PO DAILY BP (Reported) Aspirin (Ecotrin*) 81 MG TABLET.DR 1 TAB PO DAILY HEART/BLOOD (Reported) Atorvastatin Calcium 20 MG TABLET 1 TAB PO DAILY CHOLESTEROL (Reported) Budesonide/Formoterol Fumarate (Symbicort 160-4.5 Mcg Inhaler) 10.2 GM HFA.AER.AD 2 PUF INH BID RESPIRATORY (Reported) Duloxetine HCl 60 MG CAPSULE.DR 1 CAP PO QAM depression (Reported) Folic Acid 1 MG TABLET 1 TAB PO DAILY OTHER Gabapentin 300 MG CAPSULE 2 CAP PO TID NERVE PAIN (Reported) Insulin Detemir (Levemir) 100 UNIT/ML VIAL 14 UNITS SC DAILY DM (Reported) Metoprolol Succ XL (Toprol XL) 25 MG TAB.ER.24H 1 TAB PO DAILY BP (Reported) Tamsulosin HCl 0.4 MG CAP.ER.24H 1 CAP PO DAILY PROSTATE (Reported) Past History Medical History Neurological: delerium tremens, seizure EENT: sinusitis Cardiovascular: AFIB, CHF, hypertension, mitral regurgitation, endocarditis Staph aureus endocarditis Respiratory: COPD Gastrointestinal: GERD, Diarrhea, nausea Hepatic: hepatitis C Renal: chronic kidney disease, B/L renal cysts Musculoskeletal: degen joint disease, CHRONIC BACK PAIN R FOOT NONHEALING WOUND Psychiatric: alcohol dependence, anxiety Endocrine: diabetes Blood Disorders: anemia, Waldenstrohm's macroglobulinemia Cancer(s): colon/rectal cancer (operated), prostate cancer (treated), WALDENSTROM LYMPHOMA [employer]PER[employer]OR/Reproductive: NONE Surgical History Pertinent Surgical History: colon resection, MITRAL VALVE REPAIR left ankle surgery/arthrodesis Family History Relations & Conditions If Any: FATHER, , Age 87; Cause: Prostate CA. FH: diabetes mellitus FH: stroke FHx: prostate cancer PATERNAL GRANDMOTHER, ; Cause: Colon cancer. MOTHER, , Age 87; Cause: Old age. Psychosocial History Who Do You Live With? self Services at Home: None Primary Language: Nepali Living Will? unknown Power of Vp Celebrity Services/HCP? unknown Functional Ability ADLs Independent: dressing, eating, toileting, bathing. Ambulation: independent (Nadine boot left foot) IADLs Independent: shopping, housework, finances, food prep, telephone, transportation , medication admin. Exam & Diagnostic Data Vital Signs and I&O Vital Signs Date Time Temp Pulse Resp B/P B/P Pulse O2 O2 Flow FiO2 Mean Ox Delivery Rate 10/30 1305 97.4 100 18 124/90 10/30 1303 110 22 124/90 98 Room Air 10/30 1041 97.1 90 18 159/86 05/07 1039 97.1 90 18 159/86 05/07 1039 97.1 90 18 159/86 05/07 1039 97.1 90 18 159/86 05/07 0929 98.4 105 18 174/112 05/07 0920 97.8 105 18 174/112 99 Room Air 05/07 0734 96.4 98 20 180/100 05/07 0733 96.4 78 18 180/100 99 Room Air 05/07 0610 99.0 106 24 139/89 05/07 0557 99.0 106 24 139/89 96 Room Air 05/07 0540 98.7 121 18 165/91 05/07 0403 165/97 05/07 0333 98.7 121 20 165/97 95 Room Air 05/07 0113 100.0 112 20 189/87 05/07 0112 100.0 112 20 189/87 98 Nasal 2.0L Cannula 05/06 2345 98.0 107 20 180/85 05/06 2332 98.0 107 20 180/85 100 Nasal 2.0L Cannula / 2118 97.2 90 20 177/95 92 Nasal 2.0L Cannula / 1919 97.8 81 18 149/96 97 Room Air Intake & Output / 1600 05/07 0800 05/07 0000 05/06 1600 05/ 0800 05/06 0000 Intake Total 220 1999 Output Total 500 400 Balance -280 2000 -400 Intake, IV 100 2000 Intake, Oral 120 Output, Urine 500 400 Patient 190 lb Weight Physical Exam: distended bladder Assessment/Plan Assessment/Plan [address] inserted into bladder; clots irrigated out of bladder and placed on cbi with fairly clear irrigation developing; 30cc balloon filled with 50cc water radiation-prostatitis bleeding ? underlying uti suggest:urine c/s 24 hours cbi eventual king removal after alcohol detoxification kayla huang md urologist covering for dr. rodriguez Consult Acknowledgment - Thank you for your consult request.
--- NOTE | 2016-10-30 16:55 | Admission Certification ---
Admission Certification Certification Statement - As attending physician, I certify that at the time of - admission, based on clinical presentation, severity of - symptoms, need for further diagnostic testing and - therapeutic interventions, and risk of adverse outcomes - without in-hospital treatment, in my clinical assessment, - this patient requires an acute hospital stay for a minimum - of two nights or longer. I have also considered psychsocial - factors such as support system, advanced age, financial - issues, cognitive issues, and failed out-patient treatments, - past re-admission history, safety of patient, and lack of - compliance as applicable. Specific rationale supporting this admission is: Requires continuos bladder irrigation. Continuous monitoring of his hemoglobin levels and management of alcohol withdrawal.
--- NOTE | 2016-10-30 17:20 | PN- Att Addend ---
Attending Addendum Attending Brief Note Patient is a 66-year-old male with history of alcohol abuse, prostate cancer status post radiation therapy. He presented to the emergency room requesting alcohol detoxification that he had simply reached the end of his rope. In the emergency room was noted to have visual hallucinations. He also reported history of hematuria on and off. In the emergency room a Kaiser catheter was placed which patient pulled out. Tissue resulted in daniella hematuria. A urology consultation was placed and and patient was started on CBI therapy. He was admitted to the inpatient medical service for further management. Patient is currently drowsy but arousable. Not in any acute distress. Heart sounds are regular. Lungs are clear to auscultation bilaterally. Abdomen is soft and nontender. Kaiser catheter in place draining bloody urine. Recommendations: -Admit to the inpatient general medical service. -Benzodiazepine therapy per [facility] protocol. -IV hydration. -Continue CBI therapy. -Renal sonogram to rule out nephrolithiasis or renal lesions: Hematuria. -Follow-up with the urology service regarding need for additional bladder imaging such as CT abdomen pelvis versus cystoscopy. -Continue his home insulin regimen with close glucose monitoring. -Hold aspirin therapy for now. -DVT prophylaxis with bilateral compression device.
[2016-10-31] VITALS (12 sets, daily range): BP systolic 80–164; BP diastolic 40–94
--- NOTE | 2016-10-31 00:56 | Event Note ---
Event Note Event Note: Rapid response was called around 12:50 AM as johnnie was performed unresponsive. Patient was drowsy and lethargic however he is oriented to time place and person. He offers no complaints except chest tightness. * Vitals-afebrile, 72, 140/60 , saturating at 97%. * Focal neurologic exam was normal. * Of note patient was given IV pain medication morphine, dilaudid. Also received ativan and gabapentin * Narcan 0.4 mg was given after which patient was awake and responsive. * Troponins ordered -came out normal. * EKG showed sinus tachycardia and PVCs * CBC-hemoglobin 8.8 from 10.5. Will recheck CBC again in the morning and if hemoglobin drops less than 8 we'll plan to transfuse. * Continue CBI for now( hematuria ) * Hold aspirin * And changed morphine from every 6hrs to every 4hrs.
[2016-10-31 01:36] LABS: ABSOLUTE BASOPHIL COUNT 0 /CUMM (0.0-0.2); ABSOLUTE EOSINOPHIL COUNT 0 /CUMM (0.0-0.7); ABSOLUTE GRANULOCYTE CT 8.1 /CUMM (1.4-6.5); ABSOLUTE LYMPH COUNT 0.2 /CUMM (1.2-3.4); ABSOLUTE MONOCYTE COUNT 0.5 /CUMM (0.10-0.60); BASOPHIL % 0 % (0.0-2.0); EOSINOPHIL % 0 % (0-5); GRANULOCYTE % 91.4 % (42.2-75.2); HEMATOCRIT 25.9 % (42-52); MEAN CORPUSCULAR HGB 31.7 PG (27.0-31.0); MEAN CORPUSCULAR VOLUME 93.2 FL (80.0-94.0); MEAN PLATELET VOLUME 7.8 FL (7.4-10.4); PLATELET COUNT 207 /CUMM (130-400); RBC DISTRIBUTION WIDTH 15.3 % (11.5-14.5); RED BLOOD CELL CT 2.78 /CUMM (4.70-6.10); WHITE BLOOD CELL COUNT 8.8 /CUMM (4.8-10.8)
--- NOTE | 2016-10-31 06:40 | PN- Housestaff ---
Subjective Follow-up For: EtOH hematuria Subjective: seen and examined patient. Complains of pain in his penis and lower abdomen. Denies fever, chills shortness of breath. Review of Systems Constitutional: Denies: no symptoms, see HPI, chills, diaphoresis, fever, malaise, weakness, unexplained weight loss. Cardiovascular: Denies: chest pain, edema, orthopena, palpitations, peripheral edema, syncope. Respiratory: Denies: cough, hemoptysis, orthopnea, short of breath, sputum production, stridor, wheezing. Genitourinary: Reports: hematuria. Objective Last 24 Hrs of Vital Signs/I&O Vital Signs Date Time Temp Pulse Resp B/P B/P Pulse O2 O2 Flow FiO2 Mean Ox Delivery Rate 10/31 0404 99.2 92 28 164/86 94 / 0015 97.8 72 32 146/94 97 / 0000 Nasal 2.0L Cannula 10/30 2242 98.6 91 21 140/100 96 Room Air 10/30 1641 99.1 100 21 150/102 94 Room Air / 1600 100 21 150/102 05/ 1600 94 Room Air / 1305 97.4 100 18 124/90 05/07 1303 110 22 124/90 98 Room Air /07 1041 97.1 90 18 159/86 05/07 1039 97.1 90 18 159/86 05/07 1039 97.1 90 18 159/86 05/07 1039 97.1 90 18 159/86 05/07 0929 98.4 105 18 174/112 05/07 0920 97.8 105 18 174/112 99 Room Air Intake & Output 10/31 1600 08 0800 10/31 0000 Intake Total 1080 900 Output Total 1200 450 Balance -120 450 Intake, IV 600 300 Intake, Oral 480 600 Output, Urine 1200 450 Patient 210 lb Weight Weight Reported by Patient Measurement Method Physical Exam General Appearance: Alert, No Acute Distress, unkempt, blood on fingers Cardiovascular: Regular Rate, Normal S1, Normal S2 Lungs: Clear to Auscultation, Normal Air Movement Abdomen: Soft, tenderness to palpation especially on left lower quadrant Current Medications: Current Medications Sig/Avery Start time Last Medication Dose Route Stop Time Status Admin Acetaminophen 1,000 MG Q6P PRN 10/30 1930 AC N/A 1 UNIT IV Albuterol Sulfate 2 PUF Q4-6 PRN PRN 10/30 0930 AC 10/30 INH 1039 Amlodipine Besylate 10 MG DAILY 10/30 1000 AC 10/30 PO 1039 Aspirin Buffered 81 MG DAILY 10/30 1000 DC 05 PO 1039 Atorvastatin Calcium 20 MG DAILY 10/30 1000 AC 10/30 PO 1039 Budesonide/ 2 PUF BID 10/30 1000 AC 10/30 Formoterol Fumarate INH 2141 Ceftriaxone Sodium 0 .STK-MED ONE 10/30 1119 DC .ROUTE Ceftriaxone Sodium 1,000 MG ONCE ONE 10/30 1100 DC 10/30 IV 10/30 1101 1122 Chlordiazepoxide HCl 25 MG TID 10/30 1600 AC 10/30 PO 2141 Chlordiazepoxide HCl 25 MG ONCE ONE 10/30 1445 DC 10/30 PO 10/30 1446 1449 Chlordiazepoxide HCl 0 .STK-MED ONE 10/30 1441 DC PO Cyanocobalamin/ 1 BAG ONCE ONE 10/30 1400 DC 10/30 Thiamine/Pyridoxine IV 10/30 2159 1741 Dextrose/Water 1,000 ML Duloxetine HCl 60 MG DAILY 10/30 1000 AC 10/30 PO 1039 Folic Acid 1 MG DAILY 10/30 1000 DC 10/30 PO 11/01 1001 0918 Folic Acid 1 MG DAILY 10/30 1000 AC PO Folic Acid 0 .STK-MED ONE 10/30 0917 DC PO Gabapentin 600 MG TID 10/30 1000 AC 10/30 PO 2141 Hydromorphone HCl 1 MG ONCE ONE 10/30 1945 DC 10/30 IV 10/30 1942006 Insulin Detemir 14 UNITS DAILY 10/30 1000 AC 10/30 SC 1039 Loperamide HCl 4 MG ONCE ONE 10/30 0845 DC 10/30 PO 10/30 0846 0918 Lorazepam 1 MG Q12H 11/01 0000 DC PO 11/01 1201 Lorazepam 1.5 MG Q6 10/31 0600 DC PO 10/31 1801 Lorazepam See Dose Q1P PRN 10/30 1400 AC 10/31 Insts (1) IV 0626 Lorazepam 2 MG Q6 10/30 1200 DC 10/30 PO 10/31 0000 1200 Lorazepam 0 .STK-MED ONE 10/30 1149 DC PO Lorazepam 0 .STK-MED ONE 10/30 0941 DC PO Lorazepam 2 MG Q2P PRN 10/30 0645 DC PO Lorazepam 1 MG Q2P PRN 10/30 0645 DC 10/30 PO 0938 Metoprolol Succinate 25 MG DAILY 10/30 1000 AC 10/30 PO 1039 Morphine Sulfate 3 MG Q6 10/31 0600 DC IV Morphine Sulfate 3 MG Q6P PRN 10/31 0245 AC 10/31 IV 0414 Morphine Sulfate 3 MG Q4P PRN 10/30 1930 DC 10/30 IV 2141 Morphine Sulfate 2 MG Q4P PRN 10/30 1830 DC 10/30 IV 1821 Morphine Sulfate 0 .STK-MED ONE 10/30 1443 DC .ROUTE Morphine Sulfate 2 MG ONCE ONE 10/30 1430 DC 10/30 IV 10/30 1431 1449 Multivitamins 1 TAB DAILY 10/30 1000 AC 10/30 PO 0918 Multivitamins 0 .STK-MED ONE 10/30 0918 DC PO Naloxone HCl 0.4 MG ONCE ONE 10/31 0030 DC 10/31 IV 10/31 0031 0041 Sodium Chloride 1,000 ML .[id number] 10/30 1400 AC 10/31 IV 11/01 0559 0331 Tamsulosin HCl 0.4 MG DAILY 10/30 1000 AC 10/30 PO 1039 Thiamine HCl 100 MG DAILY 10/30 1000 AC 10/30 PO 11/01 1001 0918 Thiamine HCl 0 .STK-MED ONE 10/30 0918 DC PO Dose Instructions: (1)Lorazepam: See admin criteria Last 24 Hrs of Lab/Manny Results Last 24 Hrs of Labs/Mics: Laboratory Tests 10/31/16 0030: CBC w Diff MAN DIFF ORDERED, RBC 2.78 L, MCV 93.2, MCH 31.7 H, RDW 15.3 H, MPV 7.8, Gran % 91.4 H, Lymphocytes % 2.7 L, Monocytes % 5.9, Eosinophils % 0, Basophils % 0 L, Absolute Granulocytes 8.1 H, Absolute Lymphocytes 0.2 L, Absolute Monocytes 0.5, Absolute Eosinophils 0, Absolute Basophils 0, Platelet Estimate ADEQUATE, Polychromasia 1+, Ovalocytes 1+, PUBS MCHC 34.0 10/30/16 1353: PT Cancelled, INR Cancelled, APTT Cancelled 10/30/16 0805: Urine Color PINK H, Urine Clarity HAZY H, Urine pH 6.5, Ur Specific [place] 1.020, Urine Protein >=300 H, Urine Ketones TRACE H, Urine Nitrite NEG, Urine Bilirubin NEG, Urine Urobilinogen 0.2, Ur Leukocyte Esterase MOD H, Ur Microscopic SEDIMENT EXAMINED, Urine RBC >75 H, Urine WBC > 75 H, Ur Epithelial Cells RARE, Urine Bacteria MANY H, Urine Hemoglobin LARGE H, Urine Glucose NEG Microbiology 10/30 1438 STOOL: Clostridium difficile Toxin A & B - COLB 10/30 08 URINE ROUT: Urine Culture - RECD Assessment/Plan Assessment: 66-year-old gentleman with past medical history of prostate cancer status post radiation hepatitis C status post treatment, hypertension, diabetes, mitral regurgitation with prolapse,status post mitral valve repair with a Maze procedure performed in November of 2010 opiate dependence, diabetes, left leg below-knee amputation, alcohol overuse, alcohol withdrawal seizures, GI bleed, infective endocarditis, afib refractory to cardioversion intially on coumadin which was stopped due to GI bleed. MRSA bacteremia, who presented to the ED on the evening of 10/29/2016, current admission for Alcohol withdrawal and hematuria. X-ray showed no acute pulmonary finding Hospital day 1 overnight events noted. Patient required Narcan. This morning he is continuing to complain of abdominal pain. He received 1 mg IV when necessary of Ativan this morning Plan History of prostate cancer Gross hematuria Alcohol withdrawal next thing diabetes CKD his baseline seems to be between 1.6 and 1.7 Plan Continue CBI Urology on board appreciate recommendations continue to hold aspirin/elquis (per pt his eliquis was dc by his doctor in may) H&H this morning is 8.8/25.9 from 10.5/30.5 yesterday we'll continue to monitor closely and transfuse as necessary, BEP pending If Continues to complain of abdominal pain or worsening abdominal pain and possibly require CT of his abdomen and pelvis Follow-up renal ultrasound today Continue home meds of flomax, metoprolol, cymbalta continue to monitor fingersticks, on levemir 14 units daily and SS diabetic diet DVT prophylaxis mechanical Alps Full code Problem List: 1. A.FIBB S/P CARDIOVERSION 2. ACUTE ON CHRONIC KIDNEY INJURY 3. ETOH DETOX 4. Diabetes mellitus type 2 Pain Ratin Pain Location: penis and lower abdomen Pain Goal: Pain 4 or less Pain Plan: current regimen Tomorrow's Labs & Rationales: cbc/bep
--- NOTE | 2016-10-31 13:25 | ULTRASOUND REPORT ---
EXAMINATION: US RETROPERITONEAL COMPLETE (RENAL) CLINICAL INFORMATION: Hematuria. Rule out obstructive uropathy. COMPARISON: CT scan of the abdomen and pelvis dated 01/08/2016 and 11/02/2015. Ultrasound of the abdomen dated 05/14/2010. TECHNIQUE: Real-time imaging of the kidneys and bladder. FINDINGS: RIGHT KIDNEY: 8.9 x 5.6 x 5.3 cm cm (SAG x AP x TRV). The kidney is normal in size, contour, and echogenicity. Renal cortical thickness is normal. No calculi. No hydronephrosis. A 1.3 cm cyst is seen in the mid right kidney with an associated small echogenic calcification, measuring 0.5 cm. This is unchanged from prior CT scan. LEFT KIDNEY: 10.6 x 6.0 x 5.7 cm (SAG x AP x TRV). The kidney is normal in size and demonstrate slight increased cortical lobulation and increased cortical echogenicity, consistent with medical renal disease. Renal cortical thickness is normal. There are scattered parapelvic and cortical benign-appearing renal cysts seen, including a 2.2 x 2.1 x 2.3 cm mid left renal parapelvic cyst with thin internal septation and a 1.6 x 1.0 x 1.7 cm cortical mid left renal cyst. In the mid left kidney, a 0.7 cm echogenic focus with associated twinkle artifact on Doppler ultrasound is seen, consistent with a small calcification. Additional 0.5 cm echogenic calcification is seen in the upper pole of the left kidney. These findings are not appreciated on prior CT scan. BLADDER: Well-distended with Kaiser catheter seen in place. The Kaiser balloon is located inferiorly within the bladder. Superior to the balloon, a large heterogeneously echogenic macrolobulated masslike finding is seen, new when compared to 01/08/2016. Patient gives a history of pain in the bladder region status post placement of Kaiser catheter and findings may represent a large bladder hematoma. Based on this evaluation alone, a bladder wall mass a concomitant bladder wall mass cannot be excluded. With color Doppler imaging, questionable trace amount of flow is seen in 1 segment of this mass. Bilateral ureteral jets are not demonstrated. IMPRESSION: 1. Large heterogeneous predominantly avascular mass is seen within the bladder located superior to the Kaiser catheter balloon. Finding may represent a large bladder hematoma, though other etiology, including bladder neoplasm cannot be excluded. Close clinical correlation and cystoscopic correlation is requested. 2. Findings of medical renal disease. No evidence of hydronephrosis. 3. Two subcentimeter sized left renal calculi. No right renal calculi seen. 4. Bilateral benign-appearing renal cysts. Findings discussed with Dr. Khan 10/31/2016, approximately 1:10 PM.
--- NOTE | 2016-10-31 13:51 | PN- Att Addend ---
Attending Addendum Attending Brief Note Patient seen and examined. Overnight events noted. Alert and oriented 3. Altered respiratory distress. He complains of pelvic pain nonradiating. Denies nausea vomiting. Patient has poor venous access and labs have not been obtained today. He'll send down for PICC line placement today. He refused to lay down flat complain of pelvic pain. He was agitated. He agreed to the procedure only [place] his Ativan. 0.5 mg of Ativan was ordered however systolic blood pressure was found to be in the 80s down in the IR suite. Currently the procedure is being cancelled and the patient will be returned to the medical floor. Renal ultrasound done today for evaluation of his hematuria shows large heterogeneous predominantly avascular mass seen in urinary bladder. This may represent a large bladder hematoma. Neoplasm cannot be excluded. Laboratory Tests 10/31/16 0030: CBC w Diff MAN DIFF ORDERED, RBC 2.78 L, MCV 93.2, MCH 31.7 H, RDW 15.3 H, MPV 7.8, Gran % 91.4 H, Lymphocytes % 2.7 L, Monocytes % 5.9, Eosinophils % 0, Basophils % 0 L, Absolute Granulocytes 8.1 H, Absolute Lymphocytes 0.2 L, Absolute Monocytes 0.5, Absolute Eosinophils 0, Absolute Basophils 0, Platelet Estimate ADEQUATE, Polychromasia 1+, Ovalocytes 1+, PUBS MCHC 34.0 10/30/16 1353: PT Cancelled, INR Cancelled, APTT Cancelled Gen. appearance: Obese, not in respiratory distress Neurologic: Alert and oriented 3 in all extremities spontaneously. Heart: S1-S2 regular Lungs: Clear to auscultation bilaterally Abdomen: Obese, irregular lower abdomen secondary to abdominal hernia and surgical scar. Kaiser catheter in place draining pinkish urine. Extremities: 1+ pedal edema bilaterally. Laboratory Tests 10/31/16 0030: CBC w Diff MAN DIFF ORDERED, RBC 2.78 L, MCV 93.2, MCH 31.7 H, RDW 15.3 H, MPV 7.8, Gran % 91.4 H, Lymphocytes % 2.7 L, Monocytes % 5.9, Eosinophils % 0, Basophils % 0 L, Absolute Granulocytes 8.1 H, Absolute Lymphocytes 0.2 L, Absolute Monocytes 0.5, Absolute Eosinophils 0, Absolute Basophils 0, Platelet Estimate ADEQUATE, Polychromasia 1+, Ovalocytes 1+, PUBS MCHC 34.0 10/30/16 1353: PT Cancelled, INR Cancelled, APTT Cancelled Microbiology 10/30 1438 STOOL: Clostridium difficile Toxin A & B - CAN Cancelled: NO STOOL COLLECTED FOR MICRO DEPT Problems: 1. Hypotension. 2. Acute blood loss anemia secondary to daniella hematuria 3. Alcohol withdrawal syndrome. 4. Diabetes mellitus 5. Abdominal pain. Plan: -Fluid bolus with normal saline at 500 mL an hour for 2 L. -Repeat CBCs stat -If hypotension persists recommend transfusion of 2 units of packed red blood cells. -Awaiting evaluation by Dr. Torres for bladder lesion. -Continue CIWA protocol. -Continue insulin with sliding scale coverage. -Pain management with IV Tylenol [id number]. Continue gabapentin. Start tramadol for breakthrough pain. Avoid use of opioids if possible in view of his use of benzodiazepine therapy and recent oversedation.
--- NOTE | 2016-10-31 17:41 | Cons- Cardiology ---
General Information and HPI Consulting Request Date of Consult: 10/31/16 Requested By: NAKUL CRUZ M.D History of Present Illness: Wagner is a 66 year old male who carries a history of hypertension, diabetes, mitral regurgitation with prolapse, tricuspid regurgitation, and prior history of endocarditis. He is now status post mitral valve repair with a Maze procedure performed in November of [address] Juvneal Palencia. This patient also has a history of alcohol abuse with DT's and withdrawal seizure and hepatitis C. Wagner presented to the ER with a request for alcohol detoxification. He was feeling short of breath upon his initial presentation and was having visual hallucinations. He has been experiencing hematuria and dysuria and noted intermittent blood clots in his urine. He does have a history of prostate cancer s/p radiation therapy and was found to have prostatitis. He continues to have urinary and groin pain. During the patient's hospital stay he was also found unresponsive had transient issues with chest discomfort. He currently feels improved without chest discomfort, shortness of breath, lightheadedness or palpitations. Wagner was recently in the hospital for treatment of a left foot and ankle cellulitis with suspected osteomyelitis. 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 He feels much better after this procedure. It may be recalled that at his baseline, Wagner could walk at a brisk pace without experiencing any chest pain, pressure, tightness, shortness of breath, lightheadedness or palpitations. He continues to have issues with drinking. It should be noted that he recently was taken off his ACEI due to an elevated potassium and was started on Hydralazine. In consideration of some elevated blood pressures he opted to increase his hydralazine dose on his own to three times daily. This appears to have been a reasonable decision. Anemia has been an intermittent problem which results in fatigue. This patient has had multiple prior blood transfusions. In the past the patient was also known to be anemic and had guaiac positive stools in the setting of Coumadin use. There was some thought that interferon therapy used to treat the patient's Hepatitis C might cause some degree of anemia. Finally, it should be recalled that this patient is status post DC cardioversion for his atrial fibrillation. However, despite being on Amiodarone, the patient had a return of his AFib. I, therefore, discontinued Amiodarone due to its ineffectiveness. In late 2010, the patient had a kidney biopsy revealing cryoglobulinemic glomerulonephritis, with IgM deposition. The patient was found to have mitral valve replacement in 2010. He did start hepatitis C virus therapy and developed progressive anemia, which is attributed to antiviral therapy. The patient received multiple November 2011, he was found to have alloantibodies. He was aggressively treated for anemia in June 2012, with packed red blood cell transfusions, as well as erythropoietin. 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 With hemolytic anemia and high cold agglutinin titer, the patient was treated with rituximab in the summer of 2012. Posttreatment course was complicated by recurred prostate cancer for which he resumed hormonal therapy. 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 Patient was initiated on treatment approximately 2-1/2 weeks ago, consisting of dexamethasone, rituximab, and cyclophosphamide. It should be recalled that this patient has had mild renal insufficiency as well as hepatic insufficiency evaluated by Dr. Mcnally. He is now followed by the Clinic at the [facility] who is treating his hepatic insufficiency which is due to a combination of alcohol abuse and hepatitis C. He did have an episode of decompensated CHF which led to his mitral valve repair with Maze procedure. It should be noted that a presurgical PRITESH showed moderate thickening and calcification of the anterior mitral valve leaflet with moderate prolapse of the posterior mitral valve leaflet and mild prolapse of the anterior mitral valve leaflet. Findings were consistent with a mobile vegetation of the posterior leaflet and there was moderate to severe mitral regurgitation. It is felt that this was sterile vegetation since the patient had no evidence of active endocarditis and had previously been treated for this condition. A transthoracic echo showed a normal EF of 60% with mild septal hypertrophy. The left atrium was moderately to severely enlarged. The tricuspid valve disclosed mild regurgitation with mildly increased RV pressures of 41.0 mmHg and the mitral valve showed moderate to severe mitral regurgitation with mild prolapse of the posterior leaflet and an echogenic density consistent with vegetation which was in agreement with his PRITESH. His surgery was preceded by cardiac catheterization. This study showed a normal left main. The LAD had luminal irregularities. There was a ramus branch vs. high take-off first diagonal branch which was a large vessel with luminal irregularities. The left circumflex is patent in the AV groove. It parented a very high take-off large obtuse marginal one branch with a 30% proximal non-flow limiting stenosis. The right coronary artery was a large dominant vessel which was diffusely diseased with luminal irregularities throughout most of its course. It does harbor a 50% distal stenosis prior to the bifurcation. His overall EF was 50% with severe mitral regurgitation. Allergies/Medications Allergies: Coded Allergies: NO KNOWN ALLERGIES (06/07/16) Home Med List: Albuterol Sulfate (Ventolin Hfa) 90 MCG HFA.AER.AD 2 PUF INH Q4-6 PRN PRN COPD (Reported) Amlodipine Besylate (Norvasc) (Unknown Strength) TABLET (Unknown Dose) PO DAILY BP (Reported) Aspirin (Ecotrin*) 81 MG TABLET.DR 1 TAB PO DAILY HEART/BLOOD (Reported) Atorvastatin Calcium 20 MG TABLET 1 TAB PO DAILY CHOLESTEROL (Reported) Budesonide/Formoterol Fumarate (Symbicort 160-4.5 Mcg Inhaler) 10.2 GM HFA.AER.AD 2 PUF INH BID RESPIRATORY (Reported) Duloxetine HCl 60 MG CAPSULE.DR 1 CAP PO QAM depression (Reported) Folic Acid 1 MG TABLET 1 TAB PO DAILY OTHER Gabapentin 300 MG CAPSULE 2 CAP PO TID NERVE PAIN (Reported) Insulin Detemir (Levemir) 100 UNIT/ML VIAL 14 UNITS SC DAILY DM (Reported) Metoprolol Succ XL (Toprol XL) 25 MG TAB.ER.24H 1 TAB PO DAILY BP (Reported) Tamsulosin HCl 0.4 MG CAP.ER.24H 1 CAP PO DAILY PROSTATE (Reported) Review of Systems Review of Systems: groin pain Past History Travel History Traveled to [place] past 21 day No Medical History Blood Transfusion Hx: Yes Neurological: delerium tremens, seizure EENT: sinusitis Cardiovascular: AFIB, CHF, hypertension, mitral regurgitation, endocarditis Staph aureus endocarditis Respiratory: COPD Gastrointestinal: GERD, Diarrhea, nausea Hepatic: hepatitis C Renal: chronic kidney disease, B/L renal cysts Musculoskeletal: degen joint disease, CHRONIC BACK PAIN R FOOT NONHEALING WOUND Psychiatric: alcohol dependence, anxiety Endocrine: diabetes Blood Disorders: anemia, Waldenstrohm's macroglobulinemia Cancer(s): colon/rectal cancer (operated), prostate cancer (treated), WALDENSTROM LYMPHOMA ASH KIER BOILER/Reproductive: NONE Surgical History Surgical History: colon resection, MITRAL VALVE REPAIR left ankle surgery/ arthrodesis Family History Relations & Conditions If Any: FATHER, , Age 87; Cause: Prostate CA. FH: diabetes mellitus FH: stroke FHx: prostate cancer PATERNAL GRANDMOTHER, ; Cause: Colon cancer. MOTHER, , Age 87; Cause: Old age. Psychosocial History Where Do You Live? Home Who Do You Live With? self Services at Home: None Primary Language: Estonian Smoking Status: Current Everyday Smoker Living Will? unknown Power of Infectious Disease Technician/HCP? unknown Functional Ability ADLs Independent: dressing, eating, toileting, bathing. Ambulation: independent (Nadine boot left foot) IADLs Independent: shopping, housework, finances, food prep, telephone, transportation , medication admin. Exam & Diagnostic Data Vital Signs and I&O Vital Signs Date Time Temp Pulse Resp B/P B/P Pulse O2 O2 Flow FiO2 Mean Ox Delivery Rate 10/31 1505 92 92/48 10/31 1435 94 90/50 10/31 1419 97.4 90 20 80/40 93 Room Air 10/31 1000 98.9 88 88 148/84 10/31 0918 92 164/86 10/31 0918 92 164/86 10/31 0918 92 164/86 / 0404 99.2 92 28 164/86 94 / 0015 97.8 72 32 146/94 97 / 0000 Nasal 2.0L Cannula 10/30 2242 98.6 91 21 140/100 96 Room Air Intake & Output 10/31 1600 08 0800 /08 0000 10/30 1600 10/30 0800 10/30 0000 Intake Total 1930 1080 071 306 2736 Output Total 1100 1200 450 500 400 Balance 830 -120 450 -280 2000 -400 Intake, IV 1450 600 283 498 3432 Intake, Oral 480 480 600 120 Output, Urine 1100 1200 450 500 400 Patient 210 lb 190 lb Weight Weight Reported by Patient Measurement Method Physical Exam: General: WD/ obese male in NAD; alert and oriented x 3 HEENT: NC/ AT, PERRL, EOMI Neck: no JVD, no carotid bruit Heart: irregularly irregular w/o murmur Lungs: clear bilaterally Abdomen: soft, Obese, NT, +ve bowel sounds Extremities: no edema, left BKA Assessment/Plan Assessment/Plan * Wagner is currently hypotensive although he is asymptomatic. Begin NS at 75cc/ hr for 1 liter. Continue Metoprolol but stop Norvasc. * Atrial fibrillation: Continue Metoprolol for rate control. Hold Eliquis until issues with hematuria and bladder mass have resolved. Consult Acknowledgment - Thank you for your consult request.
--- NOTE | 2016-10-31 17:41 | ULTRASOUND REPORT ---
CLINICAL HISTORY: Poor venous access. PROCEDURES: 1. Real-time ultrasound guided access into the right brachial vein after documentation of selected vessel patency, and permanent imaging storing in the patient records. 2. Placement of a non tunneled 5 Congolese single lumen lumen PICC. 3. The PICC measures 48 cm in length. PHYSICIANS: Dr. Max Rivera The attending physician was present for the entire procedure, reviewed all imaging, and finalized this report. MEDICATIONS: -3 mL Lidocaine 1% subcutaneous COMPLICATIONS: None ESTIMATED BLOOD LOSS: < 5 mL SPECIMENS: None CONTRAST: None FLUOROSCOPY TIME: 0.5 min PROCEDURE NOTE: Informed consent was obtained from the patient prior to the procedure. During this process, the procedure and potential alternatives were explained along with the intended outcome and benefits. The risks of the procedure including the possibility of an unsuccessful procedure, as well as the risk of not doing the procedure were discussed. The patient was given the opportunity to ask questions regarding the procedure and appeared competent he decisions. A signed consent form was document this discussion was placed in the medical record. A time out procedure was performed. The patient was placed supine on the fluoroscopy table. Prior to prepping the patient, a limited sonogram of the right arm was performed to choose appropriate access, and this arm was prepped and draped in usual sterile fashion. Venous access was achieved into the right brachial vein using a micropuncture access needle under ultrasound and fluoroscopic guidance. The 0.018 measuring wire from the PICC was advanced into the cavoatrial junction. The needle was removed and replaced with the peel away sheath. The intravascular length was measured and the catheter was trimmed to the correct length. The inner dilator was removed and the PICC was advanced over the wire into the cavoatrial junction. The peel away sheath and wire were removed. The catheter was tested successfully and secured to the skin with its tip in the cavoatrial junction. A spot image was taken. FINDINGS: 1. Patent right brachial vein 2. Successful placement of a 5 Congolese single lumen PICC line cut at 48 cm. IMPRESSION: Successful and uncomplicated placement of a single lumen PICC in the right brachial vein. PLAN: -The patient was stable after the procedure and was transferred to the floor. -The catheter may be used immediately.
[2016-10-31 21:50] LABS: ABSOLUTE BASOPHIL COUNT 0 /CUMM (0.0-0.2); ABSOLUTE EOSINOPHIL COUNT 0 /CUMM (0.0-0.7); ABSOLUTE GRANULOCYTE CT 5.4 /CUMM (1.4-6.5); ABSOLUTE LYMPH COUNT 0.4 /CUMM (1.2-3.4); ABSOLUTE MONOCYTE COUNT 0.7 /CUMM (0.10-0.60); BASOPHIL % 0.3 % (0.0-2.0); EOSINOPHIL % 0.4 % (0-5); GRANULOCYTE % 82.4 % (42.2-75.2); MEAN CORPUSCULAR HGB 32.3 PG (27.0-31.0); MEAN CORPUSCULAR HGB CONC 34.9 G/DL (33.0-37.0); MEAN CORPUSCULAR VOLUME 92.7 FL (80.0-94.0); MEAN PLATELET VOLUME 7.6 FL (7.4-10.4); PLATELET COUNT 148 /CUMM (130-400); RBC DISTRIBUTION WIDTH 15.7 % (11.5-14.5); WHITE BLOOD CELL COUNT 6.5 /CUMM (4.8-10.8)
[2016-10-31 22:02] LABS: RED BLOOD CELL CT 1.98 /CUMM (4.70-6.10)
[2016-10-31 22:03] LABS: HEMATOCRIT 18.3 % (42-52)
[2016-11-01 04:00] VITALS: BP 100/58
[2016-11-01 04:59] LABS: ABSOLUTE BASOPHIL COUNT 0 /CUMM (0.0-0.2); ABSOLUTE EOSINOPHIL COUNT 0.1 /CUMM (0.0-0.7); ABSOLUTE MONOCYTE COUNT 0.7 /CUMM (0.10-0.60); BASOPHIL % 0.3 % (0.0-2.0); EOSINOPHIL % 1.4 % (0-5); RED BLOOD CELL CT 1.75 /CUMM (4.70-6.10)
[2016-11-01 05:02] LABS: ABSOLUTE GRANULOCYTE CT 5.2 /CUMM (1.4-6.5); ABSOLUTE LYMPH COUNT 0.4 /CUMM (1.2-3.4); GRANULOCYTE % 82.4 % (42.2-75.2); MEAN CORPUSCULAR HGB 31.6 PG (27.0-31.0); MEAN CORPUSCULAR HGB CONC 33.9 G/DL (33.0-37.0); MEAN CORPUSCULAR VOLUME 93.2 FL (80.0-94.0); MEAN PLATELET VOLUME 7.6 FL (7.4-10.4); PLATELET COUNT 119 /CUMM (130-400); RBC DISTRIBUTION WIDTH 15.9 % (11.5-14.5); WHITE BLOOD CELL COUNT 6.4 /CUMM (4.8-10.8)
[2016-11-01 05:04] LABS: PT 10.8 SEC (9.4-12.5)
[2016-11-01 05:29] LABS: HEMATOCRIT 16.3 % (42-52)
[2016-11-01 05:54] VITALS: BP 100/58
--- NOTE | 2016-11-01 06:34 | Event Note ---
Event Note Event Note: I was called by the nurse regarding critical values Hemoglobin 6.4 and hematocrit 18.3 Bun 49 and creatinine 3.9 * He does complain of pelvic pain which is nonradiating * CBI was clear with no fresh blood * On examination, he is alert awake and oriented. * Vitals were stable-afebrile, 94, 20, 100/58, 95 on room air * Spoke with the blood bank regarding blood transfusion. However he was having 3 antibodies and blood bank was planning to get blood bag from [place]. * Normal saline 1000 mL bolus was given * Maintenance fluids were ordered Around 4 in the morning, hemoglobin dropped to 5.5 and hematocrit 16.3 and bun 52, creatinine 4.2 * Called urologist Dr. gonzales- Advised to get stat CT abdomen pelvis without contrast * Continue IV fluids * Monitor vitals * He will come and see the patient in the morning * resource efficiency manager was consulted Please follow-up urology and nephrology recommendations. Please follow CAT scan results
--- NOTE | 2016-11-01 07:56 | PN- Urology ---
Subjective Subjective: Patient sleepy. Complains of mild bladder discomfort. Appears pale. He was seen by Dr Martin on 10/30/16. Pt came to ER for alcohol detox. He had difficulty voiding. He developed urethral bleeding after unsuccessful attempts at inserting king in ER. Dr Martin inserted a 24 fr 3-way king, irrigated out clots and began CBI. Yesterday drainage was pink until he went for ultrasound and PICC line and then drainage became bloody. He has hx of RT for prostate ca and was also on Lupron. He has seen Dr Fitzpatrick of radiation oncology in the past. It is not clear who his usual urologist was. He has had hematuria in the past and recently had a king placed at [facility]. Pt's hematocrit has dropped significantly Objective Vital Signs and I&Os Vital Signs Date Time Temp Pulse Resp B/P B/P Pulse O2 O2 Flow FiO2 Mean Ox Delivery Rate 11/01 0554 98.0 94 20 100/58 95 Room Air / 2323 98.8 100 18 100/50 100 Room Air /08 2200 98.0 89 20 120/60 05/08 2000 98.0 89 20 120/60 05/08 1900 98.0 89 20 120/60 94 Room Air 05/08 1800 97.4 92 20 92/48 05/08 1600 97.4 92 20 92/48 05/08 1505 92 92/48 05/08 1435 94 90/50 05/08 1419 97.4 90 20 80/40 93 Room Air 05/08 1000 98.9 88 88 148/84 05/08 0918 92 164/86 05/08 0918 92 164/86 05/08 0918 92 164/86 Intake & Output /09 0800 05/09 0000 05/08 1600 05/08 0800 05/08 0000 05/07 1600 Intake Total 1930 1080 900 220 Output Total 1200 1100 1200 450 500 Balance -1200 830 -120 450 -280 Intake, IV 1450 600 300 100 Intake, Oral 480 480 600 120 Output, Urine 1200 1100 1200 450 500 Patient 210 lb Weight Weight Reported by Patient Measurement Method sleepy but arousable Back: no CVA tenderness Abd: Midline scar and incisional hernia. Soft, minimal suprapubic discomfort Genitalia: 3-way king in place. CBI draining clear but bloody leakage around king Renal ultrasound: Renal cysts. No hydronephrosis. King in bladder. Mass in bladder, ? clot vs other mass Laboratory Tests 11/01 10/31 10/31 0400 2047 2047 Chemistry Sodium (137 - 145 mmol/L) 131 L 129 L Potassium (3.5 - 5.1 mmol/L) 3.6 3.5 Chloride (98 - 107 mmol/L) 105 100 Carbon Dioxide (22 - 30 mmol/L) 15 L 16 L Anion Gap (5 - 16) 12 13 BUN (9 - 20 mg/dL) 52 H 49 H Creatinine (0.7 - 1.2 mg/dL) 4.2 H 3.9 H Estimated GFR (>60 ml/min) 14 L 16 L BUN/Creatinine Ratio (7 - 25 %) 12.4 12.6 Phosphorus (2.5 - 4.5 mg/dL) 6.9 H Magnesium (1.6 - 2.3 mg/dL) Cancelled 1.6 Total Bilirubin (0.2 - 1.3 mg/dL) 0.4 Direct Bilirubin (< 0.4 mg/dL) 0.3 AST (17 - 59 U/L) 17 ALT (21 - 72 U/L) 31 Alkaline Phosphatase (< 127 U/L) 46 Troponin I (<0.11 ng/ml) 0.05 Total Protein (6.3 - 8.2 g/dL) 4.8 L Albumin (3.5 - 5.0 g/dL) 2.7 L Coagulation PT (9.4 - 12.5 SEC) 10.8 INR (0.90 - 1.17) 1.03 Hematology CBC w Diff NO MAN DIFF REQ WBC (4.8 - 10.8 /CUMM) 6.4 RBC (4.70 - 6.10 /CUMM) 1.75 L Hgb (14.0 - 18.0 G/DL) 5.5 *L Hct (42 - 52 %) 16.3 *L MCV (80.0 - 94.0 FL) 93.2 MCH (27.0 - 31.0 PG) 31.6 H RDW (11.5 - 14.5 %) 15.9 H Plt Count (130 - 400 /CUMM) 119 L MPV (7.4 - 10.4 FL) 7.6 Gran % (42.2 - 75.2 %) 82.4 H Lymphocytes % (20.5 - 51.1 %) 5.7 L Monocytes % (1.7 - 9.3 %) 10.2 H Eosinophils % (0 - 5 %) 1.4 Basophils % (0.0 - 2.0 %) 0.3 Absolute Granulocytes (1.4 - 6.5 /CUMM) 5.2 Absolute Lymphocytes (1.2 - 3.4 /CUMM) 0.4 L Absolute Monocytes (0.10 - 0.60 /CUMM) 0.7 H Absolute Eosinophils (0.0 - 0.7 /CUMM) 0.1 Absolute Basophils (0.0 - 0.2 /CUMM) 0 PUBS MCHC (33.0 - 37.0 G/DL) 33.9 11/01 2047 Chemistry Sodium Cancelled Potassium Cancelled Chloride Cancelled Carbon Dioxide Cancelled Anion Gap Cancelled BUN Cancelled Creatinine Cancelled BUN/Creatinine Ratio Cancelled Magnesium Cancelled Total Bilirubin Cancelled Direct Bilirubin Cancelled AST Cancelled ALT Cancelled Alkaline Phosphatase Cancelled Total Protein Cancelled Albumin Cancelled Hematology CBC w Diff NO MAN DIFF REQ WBC (4.8 - 10.8 /CUMM) 6.5 RBC (4.70 - 6.10 /CUMM) 1.98 L Hgb (14.0 - 18.0 G/DL) 6.4 *L Hct (42 - 52 %) 18.3 *L MCV (80.0 - 94.0 FL) 92.7 MCH (27.0 - 31.0 PG) 32.3 H RDW (11.5 - 14.5 %) 15.7 H Plt Count (130 - 400 /CUMM) 148 MPV (7.4 - 10.4 FL) 7.6 Gran % (42.2 - 75.2 %) 82.4 H Lymphocytes % (20.5 - 51.1 %) 6.9 L Monocytes % (1.7 - 9.3 %) 10.0 H Eosinophils % (0 - 5 %) 0.4 Basophils % (0.0 - 2.0 %) 0.3 Absolute Granulocytes (1.4 - 6.5 /CUMM) 5.4 Absolute Lymphocytes (1.2 - 3.4 /CUMM) 0.4 L Absolute Monocytes (0.10 - 0.60 /CUMM) 0.7 H Absolute Eosinophils (0.0 - 0.7 /CUMM) 0 Absolute Basophils (0.0 - 0.2 /CUMM) 0 PUBS MCHC (33.0 - 37.0 G/DL) 34.9 Urine C&S growing gram neg rods Assessment/Plan Assessment/Plan Imp: 1. Gross hematuria, ? radiation cystitis vs trauma from king insertion vs other cause 2. Hx of prostate ca tx'ed with RT 3. Blood loss anemia Plan: 1. Bladder irrigated at bedside and large amount of clot obtain. CBI then pink on rapid rate 2. Continue CBI at rapid rate 3. Manually irrigate king prn no drainage 4. Transfuse when blood available 5. When stable non contrast CT of abd and pelvis. CBI must continue while going for CT scan otherwise king will likely clot 6. Would start ceftriaxone based on preliminary urine culture result and adjust based on sensitivities 7. Would transfer to ICU 8. Will likely need cystoscopy depending on course. Would keep npo today and tonight
--- NOTE | 2016-11-01 08:03 | PN- Housestaff ---
Subjective Follow-up For: EtOH detox gross hematuria Complaints: see events below: (hematuria and labs) Tele-Events Since Last Visit: in [facility] floor Subjective: Patient was in [facility] floor for alcohol detox, and had hematuria. I followed up and examined the patient this morning, while I was called by the nursing staff because of his abnormal lab values, and unstable vitals. Patient' s H&H was 5. 5/16 0.3, dropped from 10.5/30.6, he was having gross hematuria with clots with his continuous bowel irrigation overnight as well. His blood pressure was 96/48, pulse 100 per minute, temperature 97.6F, respiration was 18 , blood sugar by fingerstick method was 155. Resident aware and is also involved in the decision making process. Dr. Acharya, urologist was in the room as I assessed the patient. The patient is to get a CAT scan after he is stable enough. I am transferring the patient to the ICU/critical care unit right now. I have also ordered 2 L of normal saline bolus as the blood bank is trying to find blood for him, which might take some time, as he has antibodies that does not allow us to transfuse just the regular way. [place] made aware by the staff. Overnight, as his H/H was dropping, night staff spoke to blood bank, continued IV fluids, and called urologist, ordered CT scan non contrast. Blood was not available from [place] overnight. The patient is alert, oriented. He denies any dizziness, chest pain, shortness of breath. Review of Systems Constitutional: Reports: see HPI. Objective Last 24 Hrs of Vital Signs/I&O Vital Signs Date Time Temp Pulse Resp B/P B/P Pulse O2 O2 Flow FiO2 Mean Ox Delivery Rate 11/01 1207 88 130/76 11/01 1200 Nasal 3.0L Cannula 11/01 1200 97.0 87 20 114/65 11/01 0938 88 120/88 11/01 0554 98.0 94 20 100/58 95 Room Air 11/01 0400 98.0 94 20 100/58 10/31 2323 98.8 100 18 100/50 100 Room Air 10/31 2200 98.0 89 20 120/60 05/08 2000 98.0 89 20 120/60 05/08 1900 98.0 89 20 120/60 94 Room Air 05/08 1800 97.4 92 20 92/48 05/08 1600 97.4 92 20 92/48 05/08 1505 92 92/48 05/08 1435 94 90/50 05/08 1419 97.4 90 20 80/40 93 Room Air Intake & Output 11/01 1600 11/01 0800 05 0000 Intake Total 1840 Output Total 500 1200 Balance 1340 -1200 Intake, IV 1600 Intake, Oral 240 Output, Urine 500 1200 Physical Exam General Appearance: Alert, Oriented X3, Cooperative, No Acute Distress, calm, responding appropriately Other Physical Findings: Physical exam continued... Head: Normocephalic, atraumatic Eyes: Pupils normal in size, regular, reacting to light and accommodation, EOM normal Throat/mouth: Moist mucosa Neck: Supple, full range of motion Heart: Regular rate, regular rhythm Lung: Decreased breath sound bilaterally Abd: Soft, non-tender, no distention appreciated, has multiple scars Uro: Kaiser with continous bladder irrigation ongoing with clots and reddish urine AFTER IRRIGATION WITH A SYRINGE Extremities: Normal knee exam bilaterally, no pedal edema, Left BKA Neurologic: Alert, oriented x3, Cranial exam grossly intact, Speech is clear and coherent Skin: cool, dry Psychiatric: Calm, cooperative, coherant Current Medications: Current Medications Sig/Avery Start time Last Medication Dose Route Stop Time Status Admin Acetaminophen 650 MG ONCE ONE 11/01 0645 DC PO 11/01 0646 Acetaminophen 1,000 MG .STK-MED ONE 11/01 0315 DC IV 11/01 0316 Acetaminophen 1,000 MG Q6H / 1500 DC N/A 1 UNIT IV Acetaminophen 1,000 MG Q6H PRN 10/31 1500 AC 11/01 N/A 1 UNIT IV 0651 Albuterol Sulfate 2 PUF Q4-6 PRN PRN 10/30 0930 AC 10/30 INH 1039 Amlodipine Besylate 10 MG DAILY 10/30 1000 DC 10/31 PO 0918 Atorvastatin Calcium 20 MG DAILY 10/30 1000 AC 11/01 PO 0937 Budesonide/ 2 PUF BID 10/30 1000 AC 11/01 Formoterol Fumarate INH 1200 Ceftriaxone Sodium 1,000 MG DAILY 11/01 0815 AC 11/01 IV 0939 Chlordiazepoxide HCl 25 MG TID 10/30 1600 AC 11/01 PO 09 Duloxetine HCl 60 MG DAILY 10/30 1000 AC 11/01 PO 0936 Folic Acid 1 MG DAILY 10/30 1000 AC 11/01 PO 0936 Gabapentin 600 MG TID 10/30 1000 AC 11/01 PO 0938 Heparin Sodium 0 .STK-MED ONE 10/31 1618 DC (Porcine) IV Insulin Aspart 0 TIDAC 10/31 1200 AC 05 SC 1204 Insulin Detemir 14 UNITS DAILY 10/30 1000 AC 11/01 SC 0945 Lidocaine 0 .STK-MED ONE 10/31 1618 DC .ROUTE Lorazepam 1 MG Q12H 11/01 0000 DC PO 11/01 1201 Lorazepam See Dose Q1P PRN 10/30 1400 AC 10/31 Insts (1) IV 0626 Metoprolol Succinate 25 MG DAILY 10/30 1000 AC 11/01 PO 1207 Multivitamins 1 TAB DAILY 10/30 1000 AC 11/01 PO 0936 Opium Alkaloids 60 MG ONCE ONE 11/01 0315 DC 11/01 MT 11/01 0316 0515 Potassium Chloride 40 MEQ ONCE ONE 11/01 1200 DC 11/01 PO 11/01 1201 1207 Sodium Chloride 1,000 ML Q13H 11/01 1130 AC 11/01 IV 1205 Sodium Chloride 1,000 ML BOLUS ONE 11/01 0745 DC IV 11/01 0844 Sodium Chloride 1,000 ML BOLUS ONE 11/01 0745 DC 11/01 IV 11/01 0844 0739 Sodium Chloride 1,000 ML BOLUS ONE 10/31 2345 DC 11/01 IV 11/01 0044 0111 Sodium Chloride 1,000 ML BOLUS ONE 10/31 1345 DC 10/31 IV 10/31 1444 1411 Sodium Chloride 1,000 ML .[id number] 10/30 1400 DC 10/31 IV 11/01 0559 1716 Tamsulosin HCl 0.4 MG DAILY 10/30 1000 AC 11/01 PO 0938 Thiamine HCl 100 MG DAILY 10/30 1000 DC 11/01 PO 11/01 1001 0937 Tramadol HCl 50 MG Q6P PRN 11/01 0115 AC 11/01 PO 0205 Tramadol HCl 50 MG ONCE ONE 10/31 2200 DC 10/31 PO 10/31 2200 2231 Trazodone HCl 50 MG ONCE ONE 10/310 DC 10/31 PO 10/31 2201 2231 Dose Instructions: (1)Lorazepam: See admin criteria Last 24 Hrs of Lab/Manny Results Last 24 Hrs of Labs/Mics: Laboratory Tests 11/01/16 1220: Anion Gap 13, Estimated GFR 15 L, Glucose 135 H, Calcium 6.9 L, Phosphorus 7.5 H, Magnesium 1.6, Total Bilirubin 0.2, AST 18, ALT 28, Albumin 2.5 L, CBC w Diff NO MAN DIFF REQ, RBC 1.63 L, MCV 93.4, MCH 32.4 H, RDW 15.7 H, MPV 7.6 , Gran % 81.8 H, Lymphocytes % 7.5 L, Monocytes % 9.0, Eosinophils % 1.6, Basophils % 0.1, Absolute Granulocytes 3.9, Absolute Lymphocytes 0.4 L, Absolute Monocytes 0.4, Absolute Eosinophils 0.1, Absolute Basophils 0, PUBS MCHC 34.7 11/01/16 1210: Urine Color Pending, Urine Clarity Pending, Urine pH Pending, Ur Specific Sula Pending, Urine Protein Pending, Urine Ketones Pending, Urine Nitrite Pending, Urine Bilirubin Pending, Urine Urobilinogen Pending, Ur Leukocyte Esterase Pending, Ur Microscopic SEDIMENT EXAMINED, Urine RBC Pending, Urine Hemoglobin Pending, Urine Glucose Pending 11/01/16 1210: Ur Random Creatinine Pending, Ur Random Sodium Pending, Ur Random Potassium Pending, Fraction Sodium Excret Pending 11/01/16 0400: Anion Gap 12, Estimated GFR 14 L, BUN/Creatinine Ratio 12.4, Magnesium 1.6, PT 10.8, INR 1.03, CBC w Diff NO MAN DIFF REQ, RBC 1.75 L, MCV 93.2, MCH 31.6 H, RDW 15.9 H, MPV 7.6, Gran % 82.4 H, Lymphocytes % 5.7 L, Monocytes % 10.2 H, Eosinophils % 1.4, Basophils % 0.3, Absolute Granulocytes 5.2, Absolute Lymphocytes 0.4 L, Absolute Monocytes 0.7 H, Absolute Eosinophils 0.1, Absolute Basophils 0, PUBS MCHC 33.9 10/31/162047: Magnesium Cancelled 10/31/162047: Anion Gap 13, Estimated GFR 16 L, BUN/Creatinine Ratio 12.6, Phosphorus 6.9 H, Magnesium 1.6, Total Bilirubin 0.4, Direct Bilirubin 0.3, AST 17, ALT 31, Alkaline Phosphatase 46, Troponin I 0.05, Total Protein 4.8 L, Albumin 2.7 L 10/31/162047: Sodium Cancelled, Potassium Cancelled, Chloride Cancelled, Carbon Dioxide Cancelled, Anion Gap Cancelled, BUN Cancelled, Creatinine Cancelled, BUN/ Creatinine Ratio Cancelled, Magnesium Cancelled, Total Bilirubin Cancelled, Direct Bilirubin Cancelled, AST Cancelled, ALT Cancelled, Alkaline Phosphatase Cancelled, Total Protein Cancelled, Albumin Cancelled, CBC w Diff NO MAN DIFF REQ, RBC 1.98 L, MCV 92.7, MCH 32.3 H, RDW 15.7 H, MPV 7.6, Gran % 82.4 H, Lymphocytes % 6.9 L, Monocytes % 10.0 H, Eosinophils % 0.4, Basophils % 0.3, Absolute Granulocytes 5.4, Absolute Lymphocytes 0.4 L, Absolute Monocytes 0.7 H, Absolute Eosinophils 0, Absolute Basophils 0, PUBS MCHC 34.9 Microbiology 11/01 830 GI: Surveillance Culture - RECD 11/01 829 UPPER RESP: Surveillance Culture - RECD Assessment/Plan Assessment: 66-year-old gentleman with past medical history of prostate cancer status post radiation hepatitis C status post treatment, hypertension, diabetes, infective endocarditis, afib refractory to cardioversion intially on coumadin which was stopped due to GI bleed mitral regurgitation with prolapse, status post mitral valve repair with a Maze procedure performed in November of 2010, diabetes, left leg below-knee amputation, opiate dependence, alcohol overuse, alcohol withdrawal seizures, GI bleed, MRSA bacteremia, who presented to the ED on the evening of 10/29/2016, for Alcohol withdrawal symptoms and gross hematuria. Patient was managed in the [facility] for the following issues: #Acute blood loss anemia, secondary to gross hematuria Patient has history of prostate cancer. Ultrasound of the renal system revealed a large bladder mass suggestive of hematoma as it was avascular, and correlates with a history of gross hematuria. -CBC being monitored frequently, with any drop in H&H or vital status would be reported to the urology service STAT -Continue to hold aspirin, Eliquis, -Hold anti-hypertensive meds -Fluid resuscitation, urology consultation, blood type and crossmatch, repeat CBC and transfuse if necessary once the initial plan. Patient however has antibodies, for which grew from hospital and then cannot provide that immediately. Thus request was sent to [facility] for the appropriate type of blood. Overnight, patient's H&H dropped drastically from 10-5.5, and was hypotensive, was still having gross hematuria. Patient's condition was deemed critical and was thus transferred to the critical care unit while being assessed by Dr. Acharya (urologist) this morning. <Copied from "Subjective" section of this progress note, written this morning after transfer:> I was called by the nursing staff because of his abnormal lab values, and unstable vitals. Patient's H&H was 5. 5/16 0.3, dropped from 10.5/30.6, he was having gross hematuria with clots with his continuous bowel irrigation overnight as well. His blood pressure was 96/48, pulse 100 per minute, temperature 97.6F , respiration was 18, blood sugar by fingerstick method was 155. Resident aware and is also involved in the decision making process. Dr. Acharya, urologist was in the room as I assessed the patient. The patient is to get a CAT scan after he is stable enough. I am transferring the patient to the ICU/critical care unit right now. I have also ordered 2 L of normal saline bolus as the blood bank is trying to find blood for him, which might take some time, as he has antibodies that does not allow us to transfuse just the regular way. [place] made aware by the staff. Overnight, as his H/H was dropping, night staff spoke to blood bank, continued IV fluids, and called urologist, ordered CT scan non contrast. Blood was not available from [place] overnight. The patient is alert, oriented. He denies any dizziness, chest pain, shortness of breath. #Alcohol detox -Was continuing CIWA protocol while in gen med floor. Patient required Narcan first a of admission. -Was receiving Ativan per protocol #History of chronic kidney disease with baseline creatinine around 1.6 #Diabetes mellitus: Continue to monitor fingerstick glucose, continue insulin, and the diet was diabetic diet #Diabetic diet #DVT prophylaxis was mechanical only because of ongoing blood loss #CODE STATUS full code Problem List: 1. Acute blood loss anemia 2. Gross hematuria 3. History of prostate cancer 4. CKD (chronic kidney disease) 5. Diabetes mellitus 6. Alcohol dependence Pain Ratin Pain Location: - Pain Goal: Pain 4 or less Pain Plan: prn, hold sedatives for now Tomorrow's Labs & Rationales: per ICU team
--- NOTE | 2016-11-01 08:44 | Event Note ---
Event Note Event Note: Patient evaluated at 7am this morning for significant hypotension and anemia. The patient had poor IV access and a PICC was obtained at 16:00 yesterday. Type & screen and 2U PRBC were orderd at 15:30h. However, type/screen was not collected till 20:48 for reasons unknown. The patient was hypotensive during the day but responded to fluid boluses and held a stable blood pressure of ~120 all night. CBC in the evening revealed that his hemoglobin dropped further to 6 g/dL , prompting [facility] team to ordered another 2U, but realized that 2U were ordered by us, the primary team much earlier in the day - which is still an active order. They subsequently cancelled their redundant order. [facility] communicated to blood bank the critically low value of hemoglobin, and the need to urgently obtain multiple units of blood. As of this morning, no blood was transfused and the patients sbp was ~90, he appeared pale and diaphoretic, dyspneic. He was evalauted by urology who recommended continuing the cbi, empiric abx coverage with ceftriaxone and transfer to the icu for closer monitoring and further stabilization of his hemodynamic stability in the setting of ongoing genitourinary hemorrhage. In the meantime, I reached out to blood bank to see if the blood was on it's way. As of 08:00 today, it is not We've requested that this be prioritized. The patient is now in the ICU, his sbp is stable at 115-120mmhg. Case discussed with Isaac Britt Camilleri, Idrees, Hajjar. The patient is now in the ICU, his sbp is stable at 115-120mmhg. Case discussed with Isaac Britt Camilleri, Idrees, Hajjar.
--- NOTE | 2016-11-01 08:49 | Cons- CRCU ---
JOSH ARCEO,SARATH 11/01/16 0849: General Information and HPI Consulting Request Date of Consult: 11/01/16 Requested By: Dr. Khan Reason for Consult: Anemia, Hypotension Source of Information: patient, old records Exam Limitations: no limitations History of Present Illness: Mr. 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 While in the emergency room a Kaiser catheter placement was attempted which was unsuccessful, patient continued to have hematuria. He was on the general medicine floor and being treated actively for hematuria and dysuria after a successful Kaiser catheter placement by urology. CBI was initiated while on the floor. While on the floor a right upper extremity PICC line was placed secondary to poor IV access. Over the next couple of days the patient started to become transiently anemic with hemoglobin this morning was 5.5 and a hematocrit of 16.3. His blood type and crossmatch is positive for C and literally antigens, obtaining blood products thus far has been a challenge. He also was found to have a systolic blood pressure in the low 100s. He was subsequently transferred to the ICU for closer monitoring. Allergies/Medications Allergies: Coded Allergies: NO KNOWN ALLERGIES (06/07/16) Home Med List: Albuterol Sulfate (Ventolin Hfa) 90 MCG HFA.AER.AD 2 PUF INH Q4-6 PRN PRN COPD (Reported) Amlodipine Besylate (Norvasc) (Unknown Strength) TABLET (Unknown Dose) PO DAILY BP (Reported) Aspirin (Ecotrin*) 81 MG TABLET.DR 1 TAB PO DAILY HEART/BLOOD (Reported) Atorvastatin Calcium 20 MG TABLET 1 TAB PO DAILY CHOLESTEROL (Reported) Budesonide/Formoterol Fumarate (Symbicort 160-4.5 Mcg Inhaler) 10.2 GM HFA.AER.AD 2 PUF INH BID RESPIRATORY (Reported) Duloxetine HCl 60 MG CAPSULE.DR 1 CAP PO QAM depression (Reported) Folic Acid 1 MG TABLET 1 TAB PO DAILY OTHER Gabapentin 300 MG CAPSULE 2 CAP PO TID NERVE PAIN (Reported) Insulin Detemir (Levemir) 100 UNIT/ML VIAL 14 UNITS SC DAILY DM (Reported) Metoprolol Succ XL (Toprol XL) 25 MG TAB.ER.24H 1 TAB PO DAILY BP (Reported) Tamsulosin HCl 0.4 MG CAP.ER.24H 1 CAP PO DAILY PROSTATE (Reported) Review of Systems Review of Systems Constitutional: Reports: see HPI. Past History Travel History Traveled to [place] past 21 day No Medical History Blood Transfusion Hx: Yes Neurological: delerium tremens, seizure Cardiovascular: AFIB, CHF, hypertension, mitral regurgitation, Staph aureus endocarditis Respiratory: COPD Gastrointestinal: GERD, Diarrhea, nausea Hepatic: hepatitis C Renal: chronic kidney disease Musculoskeletal: degen joint disease, CHRONIC BACK PAIN R FOOT NONHEALING WOUND Psychiatric: alcohol dependence, anxiety Endocrine: diabetes Blood Disorders: anemia, Waldenstrohm's macroglobulinemia Cancer(s): colon/rectal cancer (operated), prostate cancer (treated), WALDENSTROM LYMPHOMA 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 FH: diabetes mellitus FH: stroke FHx: prostate cancer PATERNAL GRANDMOTHER, ; Cause: Colon cancer. MOTHER, , Age 87; Cause: Old age. Psychosocial History Where Do You Live? Home Who Do You Live With? self Services at Home: None Primary Language: German Smoking Status: Current Everyday Smoker Living Will? unknown Power of Curing Press Maintainer/HCP? unknown Functional Ability ADLs Independent: dressing, eating, toileting, bathing. Ambulation: independent (Nadine boot left foot) IADLs Independent: shopping, housework, finances, food prep, telephone, transportation , medication admin. ECHO Results (as available) Date of last Echo 01/12/16 EF% 65 Exam & Diagnostic Data Last 24 Hrs of Vital Signs/I&O Vital Signs Date Time Temp Pulse Resp B/P B/P Pulse O2 O2 Flow FiO2 Mean Ox Delivery Rate 05/09 0554 98.0 94 20 100/58 95 Room Air 05/08 2323 98.8 100 18 100/50 100 Room Air 05/08 2200 98.0 89 20 120/60 05/08 2000 98.0 89 20 120/60 05/08 1900 98.0 89 20 120/60 94 Room Air 05/08 1800 97.4 92 20 92/48 05/08 1600 97.4 92 20 92/48 05/08 1505 92 92/48 05/08 1435 94 90/50 05/08 1419 97.4 90 20 80/40 93 Room Air 05/08 1000 98.9 88 88 148/84 / 0918 92 164/86 10/31 0918 92 164/86 10/31 0918 92 164/86 Intake & Output 11/01 1600 11/01 0800 11/01 0000 Intake Total Output Total 1200 Balance -1200 Output, Urine 1200 Physical Exam General Appearance: well developed/nourished, no apparent distress, alert, awake , comfortable Head: atraumatic Eyes: Bilateral: normal appearance, PERRL, EOMI. Ears, Nose, Throat: normal pharynx, normal ENT inspection, pale mucous membranes Respiratory: normal breath sounds, chest non-tender, no respiratory distress Cardiovascular: irregularly irregular Gastrointestinal: normal bowel sounds, soft, non-tender Back: normal inspection, normal range of motion Extremities: RUE PICC LINE, NO SURROUNDING ERRYTHEMA, LLE BKA Cranial Nerves: normal hearing, normal speech Last 48 Hrs of Labs/Manny: Laboratory Tests 11/01/16 0400: Anion Gap 12, Estimated GFR 14 L, BUN/Creatinine Ratio 12.4, PT 10.8, INR 1.03, CBC w Diff NO MAN DIFF REQ, RBC 1.75 L, MCV 93.2, MCH 31.6 H, RDW 15.9 H, MPV 7.6, Gran % 82.4 H, Lymphocytes % 5.7 L, Monocytes % 10.2 H, Eosinophils % 1.4, Basophils % 0.3, Absolute Granulocytes 5.2, Absolute Lymphocytes 0.4 L, Absolute Monocytes 0.7 H, Absolute Eosinophils 0.1, Absolute Basophils 0, PUBS MCHC 33.9 10/31/162047: Magnesium Cancelled 10/31/162047: Anion Gap 13, Estimated GFR 16 L, BUN/Creatinine Ratio 12.6, Phosphorus 6.9 H, Magnesium 1.6, Total Bilirubin 0.4, Direct Bilirubin 0.3, AST 17, ALT 31, Alkaline Phosphatase 46, Troponin I 0.05, Total Protein 4.8 L, Albumin 2.7 L 10/31/16 2048: Sodium Cancelled, Potassium Cancelled, Chloride Cancelled, Carbon Dioxide Cancelled, Anion Gap Cancelled, BUN Cancelled, Creatinine Cancelled, BUN/ Creatinine Ratio Cancelled, Magnesium Cancelled, Total Bilirubin Cancelled, Direct Bilirubin Cancelled, AST Cancelled, ALT Cancelled, Alkaline Phosphatase Cancelled, Total Protein Cancelled, Albumin Cancelled, CBC w Diff NO MAN DIFF REQ, RBC 1.98 L, MCV 92.7, MCH 32.3 H, RDW 15.7 H, MPV 7.6, Gran % 82.4 H, Lymphocytes % 6.9 L, Monocytes % 10.0 H, Eosinophils % 0.4, Basophils % 0.3, Absolute Granulocytes 5.4, Absolute Lymphocytes 0.4 L, Absolute Monocytes 0.7 H, Absolute Eosinophils 0, Absolute Basophils 0, PUBS MCHC 34.9 10/31/16 0030: CBC w Diff MAN DIFF ORDERED, RBC 2.78 L, MCV 93.2, MCH 31.7 H, RDW 15.3 H, MPV 7.8, Gran % 91.4 H, Lymphocytes % 2.7 L, Monocytes % 5.9, Eosinophils % 0, Basophils % 0 L, Absolute Granulocytes 8.1 H, Absolute Lymphocytes 0.2 L, Absolute Monocytes 0.5, Absolute Eosinophils 0, Absolute Basophils 0, Platelet Estimate ADEQUATE, Polychromasia 1+, Ovalocytes 1+, PUBS MCHC 34.0 10/30/16 1353: PT Cancelled, INR Cancelled, APTT Cancelled Diagnostic Data CXR Results PATIENT: BRANDYN BORDEN PRESENT AGE: 66 PATIENT ACCOUNT NO: [id number] : 51 LOCATION: [facility] ORDERING PHYSICIAN: BERTHA CRUZ MD SERVICE DATE: 10/29/16 EXAM TYPE: RAD - XRY-PORTABLE CHEST XRAY EXAMINATION: XR PORTABLE CHEST CLINICAL INFORMATION: Dyspnea, hypoxia COMPARISON: 08/17/2016 TECHNIQUE: Portable frontal view of the chest was obtained. FINDINGS: Moderate enlargement of the cardiac silhouette. The mediastinal silhouette is unremarkable. The median sternotomy wires in place. The pulmonary vascularity is normal. The lungs are clear. No pleural effusions or pneumothorax. IMPRESSION: Stable cardiomegaly. No acute pulmonary finding. DICTATED BY: JASWANT GARCIA MD DATE/TIME DICTATED:10/29/162024 CUSTOMER SERVICES COORDINATOR:JENELLE DATE/TIME TRANSCRIBED:10/29/162024 CONFIDENTIAL, DO NOT COPY WITHOUT APPROPRIATE AUTHORIZATION. <Electronically signed in Other Vendor System> SIGNED BY: JASWANT GARCIA MD 10/29/162029 Other Results PATIENT: BRANDYN BORDEN PRESENT AGE: 66 PATIENT ACCOUNT NO: [id number] : 51 LOCATION: [facility] ORDERING PHYSICIAN: SADIQ UPRDY MD SERVICE DATE: 10/31/16 EXAM TYPE: US - US-RENAL/KIDNEY EXAMINATION: US RETROPERITONEAL COMPLETE (RENAL) CLINICAL INFORMATION: Hematuria. Rule out obstructive uropathy. COMPARISON: CT scan of the abdomen and pelvis dated 01/08/2016 and 11/02/2015. Ultrasound of the abdomen dated 05/14/2010. TECHNIQUE: Real-time imaging of the kidneys and bladder. FINDINGS: RIGHT KIDNEY: 8.9 x 5.6 x 5.3 cm cm (SAG x AP x TRV). The kidney is normal in size, contour, and echogenicity. Renal cortical thickness is normal. No calculi. No hydronephrosis. A 1.3 cm cyst is seen in the mid right kidney with an associated small echogenic calcification, measuring 0.5 cm. This is unchanged from prior CT scan. LEFT KIDNEY: 10.6 x 6.0 x 5.7 cm (SAG x AP x TRV). The kidney is normal in size and demonstrate slight increased cortical lobulation and increased cortical echogenicity, consistent with medical renal disease. Renal cortical thickness is normal. There are scattered parapelvic and cortical benign-appearing renal cysts seen, including a 2.2 x 2.1 x 2.3 cm mid left renal parapelvic cyst with thin internal septation and a 1.6 x 1.0 x 1.7 cm cortical mid left renal cyst. In the mid left kidney, a 0.7 cm echogenic focus with associated twinkle artifact on Doppler ultrasound is seen, consistent with a small calcification. Additional 0.5 cm echogenic calcification is seen in the upper pole of the left kidney. These findings are not appreciated on prior CT scan. BLADDER: Well-distended with Kaiser catheter seen in place. The Kaiser balloon is located inferiorly within the bladder. Superior to the balloon, a large heterogeneously echogenic macrolobulated masslike finding is seen, new when compared to 01/08/2016. Patient gives a history of pain in the bladder region status post placement of Kaiser catheter and findings may represent a large bladder hematoma. Based on this evaluation alone, a bladder wall mass a concomitant bladder wall mass cannot be excluded. With color Doppler imaging, questionable trace amount of flow is seen in 1 segment of this mass. Bilateral ureteral jets are not demonstrated. IMPRESSION: 1. Large heterogeneous predominantly avascular mass is seen within the bladder located superior to the Kaiser catheter balloon. Finding may represent a large bladder hematoma, though other etiology, including bladder neoplasm cannot be excluded. Close clinical correlation and cystoscopic correlation is requested. 2. Findings of medical renal disease. No evidence of hydronephrosis. 3. Two subcentimeter sized left renal calculi. No right renal calculi seen. 4. Bilateral benign-appearing renal cysts. Findings discussed with Dr. Khan 10/31/2016, approximately 1:10 PM. DICTATED BY: EDITA CHOI MD DATE/TIME DICTATED:10/31/161156 CUSTOMER SERVICES COORDINATOR:JENELLE DATE/TIME TRANSCRIBED:10/31/161156 CONFIDENTIAL, DO NOT COPY WITHOUT APPROPRIATE AUTHORIZATION. <Electronically signed in Other Vendor System> SIGNED BY: EDITA CHOI MD [id number] Assessment/Plan Impression/Plan: ASSESSMENT- 1. Acute blood loss anemia, secondary to continuous urinary losses likely from a bladder mass versus traumatic Kaiser insertion (hemoglobin 5.5, hematocrit 16.3 this morning) 2. Acute kidney injury on chronic kidney disease; possible ATN secondary to hypotension 3. Ongoing alcohol detoxification 4. Hypotension 5. Urinary tract infection 6. Insulin-dependent diabetes mellitus 7. COPD 8. Hypertension 9. Hyperlipidemia 10. U tox positive for opiates 11. History of bladder cancer status post radiation therapy 12. History of autoimmune hemolytic anemia 13. History of previous alcohol withdrawal seizures 14. History of Waldenstrom's macroglobulinemia 15. History of endocarditis 16. History of hepatitis C status post interferon therapy 17. Atrial fibrillation status post ablation and maze procedure, currently again in atrial fibrillation on anticoagulation as an outpatient 18. Mitral valve prolapse status post repair PLAN- - Continue close ICU monitoring for now - Continue Kaiser catheter, management of CBI per urology - Check urine lites - Please confirm again with the blood bank as to when the blood will become available, transfuse 2 units PRBCs no sooner they become available, monitor for acute CHF - Normal saline 75 mL per hour - Continue IV ceftriaxone for now - Follow urine culture, alter antibiotics accordingly - Continue Symbicort 2 puffs twice a day and nebulizers therapy - Recheck ICU bundle and CBC q8 hours today - Obtain Nephrology consult - Non-contrast CT of the abdomen and pelvis to further evaluate bladder mass - Blood sugars are poorly controlled, obtain endocrinology consult - Appreciate ongoing cardiology input - Obtain echocardiogram - Add on magnesium to morning labs, replete if low, keep magnesium greater than 2 - Replete potassium, maintain potassium greater than 4 - Continue ongoing Librium taper - Hold antihypertensives at present given hypotension - Hold all pharmacological DVT prophylaxis and anticoagulation - Guaiac all stools - Continue by mouth thiamine, folic acid, multivitamins - Patient is to be nothing by mouth after midnight for a cystoscopy in the morning - DVT prophylaxis at all times with ALPS Consult Acknowledgment - Thank you for your consult request. VITALIY ARCEO,Michael RODRIGUEZ 11/01/16 1145: Assessment/Plan Recommendations: I have personally seen and examined the patient and agree with the resident's assessment and plan as detailed above. The patient continues to have clots coming out of his Kaiser catheter. He has been evaluated by urology and will likely go for a cystoscopy tomorrow. I have discussed the patient's case with the blood bank. The patient has significant antibodies, making it difficult for them to find blood that has been adequately typed and crossed. They currently have 4 units which are undergoing a final screening. He is hemodynamically stable. The patient continues to have abdominal pain which we are working to control. The patient was transferred to the ICU for close monitoring. We will continue close monitoring in the CRCU. We will monitor the patient's labs every 8 hours. We will continue CBI. We will continue to monitor for bleeding and call urology if this worsens. We will monitor of the CIWA protocol and continue MVI/thiamine/folate. Librium taper. Continue IVF hydration. Follow up ECHO results. Will follow up cardiology input. Continue Symbicort. Obtain nephrology consult. Follow up cultures. Continue empiric IV ceftriaxone. DVT prophylaxis with alps, no heparin due to acute blood loss anemia. Consult Acknowledgment - Thank you for your consult request.
[2016-11-01 12:00] VITALS: BP 114/65
--- NOTE | 2016-11-01 12:33 | PN- Att Addend ---
Attending Addendum Attending Brief Note Patient seen and examined. Following PICC line placement yesterday patient remained hemodynamically stable although he continued to have ongoing hematuria. Blood work revealed ongoing drop off his hemoglobin levels. Unfortunately blood transfusion, alcohol overnight due to unavailability of compatible blood given his antigens. Hemoglobin level dropped further this morning fortunately he remains hemodynamically stable. He was transferred to the intensive care unit for closer monitoring. Blood bank was recontacted and blood is currently available for transfusion. His CIWA has been 0 overnight. He isn't agitated. Denies abdominal pain at present. Vital Signs Date Time Temp Pulse Resp B/P B/P Pulse O2 O2 Flow FiO2 Mean Ox Delivery Rate 11/01 1207 88 130/76 / 0938 88 120/88 / 0554 98.0 94 20 100/58 95 Room Air /09 0400 98.0 94 20 100/58 05/08 2323 98.8 100 18 100/50 100 Room Air 05/08 2200 98.0 89 20 120/60 05/08 2000 98.0 89 20 120/60 05/08 1900 98.0 89 20 120/60 94 Room Air 05/08 1800 97.4 92 20 92/48 05/08 1600 97.4 92 20 92/48 05/08 1505 92 92/48 05/08 1435 94 90/50 05/08 1419 97.4 90 20 80/40 93 Room Air Gen. appearance: Alert and oriented 3. Not in acute distress. Heart: S1-S2 regular Lungs: Fair entry bilaterally with no added sounds Abdomen: Obese, reducible abdominal hernia, surgical scar, soft, nontender with normal bowel sounds. Extremities: Status post left BKA Skin: Intact Problems: 1. Acute postop as anemia secondary to daniella hematuria 2. Alcohol withdrawal syndrome. 3. Atrial fibrillation 4. Hepatitis C with cryoglobulinemia 5. History of cold agglutinin hemolytic anemia. 6. Acute on chronic kidney disease Plan: -Transfuse 2 units of packed red blood cells and repeat hemoglobin levels. Transfuse to keep hemoglobin greater than 8. -His CIWA is improving. Decrease his Librium to 12.5 mg orally 3 times a day. -Continue metoprolol with close monitoring of blood pressure. -His acute kidney injury could be secondary to his brief hypotensive episodes however differential is obstructive uropathy from the persistent clots in the bladder. His Kaiser catheter needs to be flushed regularly to ensure appropriate CBI. He has been seen by the urology service today and CT abdomen ordered. He will likely be going for cystoscopy as well. -Obtain nephrology consult. Continue empiric antibiotic therapy as urine cultures are currently growing Escherichia coli. -Continue his insulin regimen with close monitoring of blood glucose levels. -DVT prophylaxis with compression devices.
--- NOTE | 2016-11-01 13:07 | Cons- Nephrology ---
General Information and HPI Consulting Request Date of Consult: 11/01/16 Requested By: NAKUL CRUZ M.D Reason for Consult: Acute kidney injury History of Present Illness: The patient is a 66-year-old man with an extensive past medical history including diabetes mellitus, hypertension, COPD, peripheral vascular disease status post left BKA (06/10), chronic alcoholism with history of withdrawal seizures, remote IV drug abuse, hepatitis C previously treated with interferon, cryoglobulinemia with glomerulonephritis (biopsy in [place] about 10 years ago - Dr. Mattson), surgery for colon CA, prostate CA status post radiation and hormonal therapy, ?radiation cystitis, atrial fibrillation (status post maze procedure) on Eliquis, endocarditis, mitral valve prolapse requiring repair, autoimmune hemolytic anemia. He now came into the emergency department on 10/30 complaining of gross hematuria and requesting alcohol detox. [facility] placement attempts were initially unsuccessful and he was subsequently catheterized by Urology, now on CBI with an ultrasound showing a large bladder mass thought to be either a clot or neoplasm. There was no hydronephrosis. His course has been marked by hemodynamic instability including episodes of significant hypotension and a rapidly falling hemoglobin from 10.5-->5.5. There has been no reported hematochezia, melena or hematemesis. Blood typing has been difficult because of antibodies. He is now having his first unit of packed RBCs being transfused. Creatinine was 1.6 on admission rising to 3.9 yesterday and 4.2 today prompting this consultation request. His baseline creatinine has been in the mid 1's to 2 over the past year. He denies any exposure to NSAIDs or parenteral contrast. Past medical history is as noted in detail above. Medications: See below Allergies: No known drug allergies Family history is positive for alcoholism in his maternal grandfather and in 2 of his siblings. No family history for kidney disease. Social history: He lives at home with assistance, never been , no children, there is remote history of IV drug abuse including heroin as well as cocaine and other substance abuse. He has been a chronic alcoholic "all my life " and smokes a pack of cigarettes per day. Allergies/Medications Allergies: Coded Allergies: NO KNOWN ALLERGIES (06/07/16) Home Med List: Albuterol Sulfate (Ventolin Hfa) 90 MCG HFA.AER.AD 2 PUF INH Q4-6 PRN PRN COPD (Reported) Amlodipine Besylate (Norvasc) (Unknown Strength) TABLET (Unknown Dose) PO DAILY BP (Reported) Aspirin (Ecotrin*) 81 MG TABLET.DR 1 TAB PO DAILY HEART/BLOOD (Reported) Atorvastatin Calcium 20 MG TABLET 1 TAB PO DAILY CHOLESTEROL (Reported) Budesonide/Formoterol Fumarate (Symbicort 160-4.5 Mcg Inhaler) 10.2 GM HFA.AER.AD 2 PUF INH BID RESPIRATORY (Reported) Duloxetine HCl 60 MG CAPSULE.DR 1 CAP PO QAM depression (Reported) Folic Acid 1 MG TABLET 1 TAB PO DAILY OTHER Gabapentin 300 MG CAPSULE 2 CAP PO TID NERVE PAIN (Reported) Insulin Detemir (Levemir) 100 UNIT/ML VIAL 14 UNITS SC DAILY DM (Reported) Metoprolol Succ XL (Toprol XL) 25 MG TAB.ER.24H 1 TAB PO DAILY BP (Reported) Tamsulosin HCl 0.4 MG CAP.ER.24H 1 CAP PO DAILY PROSTATE (Reported) Review of Systems Review of Systems: A 12 point review of systems is negative except as noted in the history of present illness. Past History Travel History Traveled to [place] past 21 day No Medical History Blood Transfusion Hx: Yes Neurological: delerium tremens, seizure Cardiovascular: AFIB, CHF, hypertension, mitral regurgitation, Staph aureus endocarditis Respiratory: COPD Gastrointestinal: GERD, Diarrhea, nausea Hepatic: hepatitis C Renal: chronic kidney disease Musculoskeletal: degen joint disease, CHRONIC BACK PAIN R FOOT NONHEALING WOUND Psychiatric: alcohol dependence, anxiety Endocrine: diabetes Blood Disorders: anemia, Waldenstrohm's macroglobulinemia Cancer(s): colon/rectal cancer (operated), prostate cancer (treated), WALDENSTROM LYMPHOMA 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 FH: diabetes mellitus FH: stroke FHx: prostate cancer PATERNAL GRANDMOTHER, ; Cause: Colon cancer. MOTHER, , Age 87; Cause: Old age. Psychosocial History Where Do You Live? Home Who Do You Live With? self Services at Home: None Primary Language: Jordanian Smoking Status: Current Everyday Smoker Living Will? unknown Power of Personal Caregiver/HCP? unknown Functional Ability ADLs Independent: dressing, eating, toileting, bathing. Ambulation: independent (Nadine boot left foot) IADLs Independent: shopping, housework, finances, food prep, telephone, transportation , medication admin. ECHO Results (as available) Date of last Echo 01/12/16 EF% 65 Exam & Diagnostic Data Vital Signs and I&O Vital Signs Date Time Temp Pulse Resp B/P B/P Pulse O2 O2 Flow FiO2 Mean Ox Delivery Rate 11/01 1207 88 130/76 11/01 0938 88 120/88 11/01 0554 98.0 94 20 100/58 95 Room Air /09 0400 98.0 94 20 100/58 05/08 2323 98.8 100 18 100/50 100 Room Air 05/08 2200 98.0 89 20 120/60 05/08 2000 98.0 89 20 120/60 05/08 1900 98.0 89 20 120/60 94 Room Air 05/08 1800 97.4 92 20 92/48 05/08 1600 97.4 92 20 92/48 05/08 1505 92 92/48 05/08 1435 94 90/50 05/08 1419 97.4 90 20 80/40 93 Room Air Intake & Output 11/01 1600 / 0400 /08 1600 / 0400 / 1600 05/ 0400 Intake Total 1840 3010 900 2220 Output Total 500 1200 2300 450 500 400 Balance 1340 -1200 627 641 4668 -400 Intake, IV 1600 2050 300 2100 Intake, Oral 240 960 600 120 Output, Urine 500 1200 2300 450 500 400 Patient 210 lb 190 lb Weight Weight Reported by Patient Measurement Method Physical Exam: General: Well-developed, obese white male in NAD Skin: No rash or jaundice HEENT: Conjunctivae pale, sclerae anicteric, mucous membranes dry Neck: Without masses or thyromegaly, no supraclavicular or cervical adenopathy Chest: Clear to P&A with diminished breath sounds at bases Heart: Irregular rhythm without S3 or rub Abdomen: Obese, soft with an asymmetric longitudinal surgical scar below the umbilicus, ventral hernia and mild to moderate tenderness to palpation in the suprapubic region Extremities: No edema. 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 No focal findings, no asterixis or myoclonus Assessment/Plan Assessment/Recommendations Assessment: 66-year-old man with a cornucopia of medical and surgical illnesses as described in detail above, now comes in for alcohol detoxification and gross hematuria. 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 The cause of his hemodynamic instability is likely the rapid fall in intravascular volume due to blood loss which may be on the basis of urinary losses or less likely a recurrent hemolytic process. There does not seem to be any evidence for GI blood loss at this time. Of course, sepsis remains a consideration despite lack of fever or leukocytosis. There were no blood cultures drawn, urine culture is positive for Escherichia coli. Recommendations: 1. Transfuse up to a hemoglobin above 7.0 2. If blood pressure falls again would obtain a set of blood cultures 3. Continue CBI although this will make intake and output measurements difficult 4. Recommend cystoscopy to assess for retained clots 5. Continue to monitor chemistries and hemoglobin closely. Thank you. We'll follow along with you.
[2016-11-01 13:49] LABS: ABSOLUTE BASOPHIL COUNT 0 /CUMM (0.0-0.2); ABSOLUTE EOSINOPHIL COUNT 0.1 /CUMM (0.0-0.7); ABSOLUTE GRANULOCYTE CT 3.9 /CUMM (1.4-6.5); ABSOLUTE MONOCYTE COUNT 0.4 /CUMM (0.10-0.60)
[2016-11-01 13:53] LABS: ABSOLUTE LYMPH COUNT 0.4 /CUMM (1.2-3.4); BASOPHIL % 0.1 % (0.0-2.0); EOSINOPHIL % 1.6 % (0-5); GRANULOCYTE % 81.8 % (42.2-75.2); MEAN CORPUSCULAR HGB 32.4 PG (27.0-31.0); MEAN CORPUSCULAR HGB CONC 34.7 G/DL (33.0-37.0); MEAN CORPUSCULAR VOLUME 93.4 FL (80.0-94.0); MEAN PLATELET VOLUME 7.6 FL (7.4-10.4); PLATELET COUNT 110 /CUMM (130-400); RBC DISTRIBUTION WIDTH 15.7 % (11.5-14.5); RED BLOOD CELL CT 1.63 /CUMM (4.70-6.10); WHITE BLOOD CELL COUNT 4.8 /CUMM (4.8-10.8)
[2016-11-01 13:56] LABS: HEMATOCRIT 15.2 % (42-52)
--- NOTE | 2016-11-01 15:42 | CT SCAN REPORT ---
EXAMINATION: CT ABDOMEN AND PELVIS WITHOUT CONTRAST CLINICAL INFORMATION: 66-year-old male with dropping hemoglobin level and hematuria. COMPARISON: CT abdomen and pelvis from 01/08/2016. Renal and bladder ultrasound from 10/31/2016. TECHNIQUE: Multidetector volumetric imaging was performed from the superior aspect of the liver through the pubic symphysis. Sagittal and coronal reformatted images were obtained on the technologist's workstation. DLP: 901 mGy-cm FINDINGS: LUNG BASES: Cardiomegaly and atherosclerotic calcification of coronary arteries. Mitral valve is replaced. No pericardial or pleural effusion. Lower lobes are suboptimally evaluated due to motion degradation of images. Tree-in-bud nodular opacities are present within the left lower lobe. LIVER, GALLBLADDER, AND BILIARY TREE: Liver has normal size, contour and parenchymal attenuation. Gallbladder is physiologically distended and without radiopaque calculi or wall edema. PANCREAS: There is pancreatic atrophy. No pancreatic ductal dilatation or peripancreatic edema. SPLEEN: Unremarkable. ADRENAL GLANDS: Unremarkable. KIDNEYS AND URETERS: Kidneys have normal size and normal cortical thickness. Mild, symmetric fullness of each renal pelvis without overt hydronephrosis. No nephrolithiasis. Small amount of air is present within the proximal right ureter, likely due to reflux of air from the bladder into the ureter. 1.6 cm cyst at the upper pole of the right kidney. There are cortical and peripelvic cysts of the left kidney, and one of the interpolar cortical cysts has rim calcification -- as observed on the recent renal ultrasound of 10/31/2016. BLADDER: Urinary bladder is well distended and has normal wall thickness. [facility] catheter balloon is appropriately positioned within the lumen of the bladder. Surrounding the [facility] balloon, there is a 12 x 10.4 x 10 cm hyperdense, lobulated appearing structure containing some entrapped gas bubbles, consistent with a large bladder hematoma. GASTROINTESTINAL TRACT: Stomach is well distended and has normal wall thickness. Loops of bowel are normal in caliber. There is an intact ileocolonic anastomosis in the right lower quadrant. No acute inflammation or obstruction along the gastrointestinal tract. No ascites or pneumoperitoneum. ABDOMINAL WALL: There are old ventral abdominal wall hernias. A right paramedian hernia located above the level of the umbilicus has a fascial defect measuring nearly 9 cm wide. There is chronic herniation of fat and transverse colon into this defect without bowel obstruction. Just inferior to this, there is a 6.3 cm wide fascial defect, and the hernia sac contains fat and a short segment of small bowel. Also, there is a small fat-containing midline hernia above the umbilicus. LYMPH NODES: No pathologic sized lymph nodes within the abdomen or pelvis. VASCULAR: Atherosclerotic calcification of the abdominal aorta and iliac arteries without aneurysm. No retroperitoneal hematoma. PELVIC VISCERA: Prostate gland is normal in size. No pelvic free fluid. There is mild edema of presacral soft tissue. OSSEOUS STRUCTURES: The visualized lower thoracic and lumbar vertebra have normal height and alignment. There is a bone island in the intertrochanteric region of the proximal left femur. No aggressive osseous lesions. IMPRESSION: 1. Large hyperdense hematoma within the lumen of the urinary bladder surrounds the Kaiser balloon. There is no evidence of bladder wall perforation. Note that it is not possible to exclude a mucosal lesion of the posterior bladder wall due to presence of the hematoma. 2. No evidence of urolithiasis. 3. There are old, relatively large abdominal wall hernias, one containing transverse colon and another containing short segment of unobstructed small bowel. No acute findings along the gastrointestinal tract. 4. Incidentally detected are tree in-bud nodular opacities in left lower lobe. Correlate for any recent clinical signs/symptoms of bronchiolitis.
[2016-11-01 16:00] VITALS: BP 122/70
--- NOTE | 2016-11-01 16:04 | PN- Cardiology ---
Subjective Subjective: * Patient had a low blood pressure earlier today related to an acute bleed with H/H about 5/15. He is now being transfused and monitored in the ICU. * No complaints of lightheadedness but patient has severe suprapubic pain. * creatinine 4.1 with potassium of 3.3 Objective Vital Signs and I&Os Vital Signs Date Time Temp Pulse Resp B/P B/P Pulse O2 O2 Flow FiO2 Mean Ox Delivery Rate 11/01 1207 88 130/76 11/01 1200 Nasal 3.0L Cannula 11/01 1200 97.0 87 20 114/65 11/01 0938 88 120/88 11/01 0554 98.0 94 20 100/58 95 Room Air 11/01 0400 98.0 94 20 100/58 / 2323 98.8 100 18 100/50 100 Room Air 10/31 2200 98.0 89 20 120/60 /08 2000 98.0 89 20 120/60 / 1900 98.0 89 20 120/60 94 Room Air / 1800 97.4 92 20 92/48 08 1600 97.4 92 20 92/48 Intake & Output 11/01 1600 09 0800 / 0000 / 1600 10/31 0800 / 0000 Intake Total 1840 1930 1080 900 Output Total 500 1200 1100 1200 450 Balance 1340 -1200 830 -120 450 Intake, IV 1600 1450 600 300 Intake, Oral 240 480 480 600 Output, Urine 500 1200 1100 1200 450 Patient 210 lb Weight Weight Reported by Patient Measurement Method Physical Exam: General: WD/ obese male in NAD; alert and oriented x 3 HEENT: NC/ AT, PERRL, EOMI Neck: no JVD, no carotid bruit Heart: irregularly irregular w/o murmur Lungs: clear bilaterally Abdomen: soft, Obese, NT, +ve bowel sounds Extremities: no edema, left BKA Assessment/Plan Assessment/Plan * Continue Metoprolol for now. Otherwise hold all antihypertensive medications. No anticoagulation for his atrial fibrillation at this time. * Patient is improved following blood transfusion. Continue telemetry? Yes
[2016-11-01 17:41] LABS: ABSOLUTE BASOPHIL COUNT 0 /CUMM (0.0-0.2); ABSOLUTE EOSINOPHIL COUNT 0.1 /CUMM (0.0-0.7); ABSOLUTE GRANULOCYTE CT 5.8 /CUMM (1.4-6.5); ABSOLUTE LYMPH COUNT 0.4 /CUMM (1.2-3.4); ABSOLUTE MONOCYTE COUNT 0.6 /CUMM (0.10-0.60); BASOPHIL % 0 % (0.0-2.0); EOSINOPHIL % 1.7 % (0-5); MEAN CORPUSCULAR HGB 31.6 PG (27.0-31.0); MEAN CORPUSCULAR HGB CONC 33.9 G/DL (33.0-37.0); MEAN CORPUSCULAR VOLUME 93.3 FL (80.0-94.0); MEAN PLATELET VOLUME 7.5 FL (7.4-10.4); PLATELET COUNT 118 /CUMM (130-400); RBC DISTRIBUTION WIDTH 15.2 % (11.5-14.5); WHITE BLOOD CELL COUNT 6.9 /CUMM (4.8-10.8)
[2016-11-01 17:42] LABS: HEMATOCRIT 21.5 % (42-52)
[2016-11-01 22:00] VITALS: BP 106/64
--- NOTE | 2016-11-01 22:35 | RADIOLOGY REPORT ---
EXAMINATION: XR PORTABLE CHEST CLINICAL INFORMATION: Shortness of breath COMPARISON: Chest x-ray 10/29/2016 TECHNIQUE: Portable frontal view of the chest was obtained. 10:03 PM FINDINGS: Right-sided PICC line catheter tip at cavoatrial junction. Status post median sternotomy. Heart size is enlarged. The lungs are clear. There is no pulmonary vascular congestion. There is no pleural effusion. IMPRESSION: No acute abnormality of chest.
[2016-11-01 23:13] LABS: ABSOLUTE BASOPHIL COUNT 0 /CUMM (0.0-0.2); ABSOLUTE EOSINOPHIL COUNT 0.1 /CUMM (0.0-0.7); ABSOLUTE GRANULOCYTE CT 5.7 /CUMM (1.4-6.5); ABSOLUTE LYMPH COUNT 0.3 /CUMM (1.2-3.4); ABSOLUTE MONOCYTE COUNT 0.6 /CUMM (0.10-0.60); BASOPHIL % 0 % (0.0-2.0); EOSINOPHIL % 1.2 % (0-5); HEMATOCRIT 20.7 % (42-52); MEAN CORPUSCULAR HGB 31.8 PG (27.0-31.0); MEAN CORPUSCULAR HGB CONC 33.7 G/DL (33.0-37.0); MEAN CORPUSCULAR VOLUME 94.5 FL (80.0-94.0); MEAN PLATELET VOLUME 7.3 FL (7.4-10.4); PLATELET COUNT 92 /CUMM (130-400); RBC DISTRIBUTION WIDTH 14.8 % (11.5-14.5); RED BLOOD CELL CT 2.19 /CUMM (4.70-6.10); WHITE BLOOD CELL COUNT 6.6 /CUMM (4.8-10.8)
[2016-11-01 23:16] LABS: GRANULOCYTE % 86.3 % (42.2-75.2)
[2016-11-02] VITALS (7 sets, daily range): BP systolic 92–140; BP diastolic 56–90
[2016-11-02 05:10] LABS: ABSOLUTE BASOPHIL COUNT 0 /CUMM (0.0-0.2); ABSOLUTE EOSINOPHIL COUNT 0.1 /CUMM (0.0-0.7); ABSOLUTE GRANULOCYTE CT 4.2 /CUMM (1.4-6.5); ABSOLUTE LYMPH COUNT 0.2 /CUMM (1.2-3.4); ABSOLUTE MONOCYTE COUNT 0.6 /CUMM (0.10-0.60); BASOPHIL % 0.1 % (0.0-2.0); EOSINOPHIL % 1.4 % (0-5); GRANULOCYTE % 82.6 % (42.2-75.2); HEMATOCRIT 21.3 % (42-52); MEAN CORPUSCULAR HGB 32.3 PG (27.0-31.0); MEAN CORPUSCULAR HGB CONC 34.6 G/DL (33.0-37.0); MEAN CORPUSCULAR VOLUME 93.4 FL (80.0-94.0); MEAN PLATELET VOLUME 7.4 FL (7.4-10.4); PLATELET COUNT 75 /CUMM (130-400); RBC DISTRIBUTION WIDTH 15.3 % (11.5-14.5); RED BLOOD CELL CT 2.28 /CUMM (4.70-6.10); WHITE BLOOD CELL COUNT 5.1 /CUMM (4.8-10.8)
--- NOTE | 2016-11-02 07:04 | PN- Resident CRCU ---
Subjective HPI/CRCU Issues: Patient was seen and examined this morning, he is alert oriented 3, denied chest pain, palpitation, lightheadedness, diaphoresis, blurred vision, abdominal pain, nausea or vomiting. Last bowel movement 10/30/16. No overnight events reported by the nurse of the patient. 24 Hour Events: Temperature 98.2, MAXIMUM TEMPERATURE 98.6 Heart rate lowest 64, highest 91 atrial fibrillation Blood pressure lowest 83/46, highest 160/69 Respiratory rate 20 saturation 89% on 2 nasal cannula Normal saline IV fluids at rate of 75 mL/h Intake 5313, output 7445 Objective Vital Signs & I&O Last 8 Hrs of Vitals and I&O: Intake & Output 11/02 1600 Intake Total 1300 Output Total 650 Balance 650 Intake, IV 700 Intake, Oral 600 Output, Urine 650 Exam General Appearance: well developed/nourished, no apparent distress, alert Head: atraumatic, normal appearance Ears, Nose, Throat: normal pharynx, normal ENT inspection Neck: normal inspection, supple, full range of motion Respiratory: chest non-tender, no respiratory distress, wheezing Cardiovascular: irregularly irregular Gastrointestinal: normal bowel sounds, soft, non-tender, distended Incisional hernia Extremities: normal inspection, normal capillary refill, normal range of motion, no edema Cranial Nerves: normal hearing, normal speech, PERRL Current Medications: Current Medications Sig/Avery Start time Last Medication Dose Route Stop Time Status Admin Acetaminophen 1,000 MG Q6H PRN 10/31 1500 AC 11/01 N/A 1 UNIT IV 0651 Albuterol Sulfate 3 ML Q4P PRN 11/01 2300 AC 11/02 INH 0845 Albuterol Sulfate 2 PUF Q4-6 PRN PRN 10/30 0930 AC 10/30 INH 1039 Atorvastatin Calcium 20 MG DAILY 10/30 1000 AC 11/02 PO 0926 Benzocaine/Menthol 1 LANI ONCE ONE 11/01 1700 DC 11/01 PO 11/01 1701 1901 Budesonide/ 2 PUF BID 10/30 1000 AC 11/02 Formoterol Fumarate INH 0927 Calcium Gluconate 500 MG ONCE ONE 11/02 1445 DC PO 11/02 1446 Ceftriaxone Sodium 1,000 MG DAILY 11/01 0815 AC 11/02 IV 0925 Chlordiazepoxide HCl 10 MG BID 11/02 2200 AC PO Chlordiazepoxide HCl 10 MG TID 11/01 1600 DC 11/02 PO 09 Duloxetine HCl 60 MG DAILY 10/30 1000 AC 11/02 PO 925 Fentanyl Citrate 200 MCG .STK-MED ONE 11/02 1927 DC IM 11/01 1928 Folic Acid 1 MG DAILY 10/30 1000 AC 11/02 PO 09 Gabapentin 600 MG TID 10/30 1000 AC 11/02 PO 09 Insulin Aspart 0 TIDAC 10/31 1200 AC 11/02 SC 1133 Insulin Detemir 14 UNITS DAILY 10/30 1000 AC 11/02 SC 09 Lorazepam See Dose Q1P PRN 10/30 1400 AC 11/02 Insts (1) IV 0814 Magnesium Hydroxide 30 ML ONE PRN 11/01 1545 AC PO Magnesium Sulfate 1 GM ONCE ONE 11/02 1330 AC 11/02 Dextrose/Water 100 ML IV 11/02 1729 1327 Metoprolol Succinate 25 MG DAILY 11/03 1000 AC PO Metoprolol Succinate 25 MG DAILY 10/30 1000 DC 11/02 PO 09 Midazolam HCl 2 MG .[facility] ONE 11/02 1927 DC IM 11/01 1928 Morphine Sulfate 4 MG Q6-PRN PRN 11/01 1600 AC 11/01 IV 1555 Multivitamins 1 TAB DAILY 10/30 1000 AC 11/02 PO 09 Polyethylene Glycol 17 GM DAILY 11/01 1544 AC 11/02 PO 09 Senna/Docusate Sodium 1 TAB BID PRN 11/01 1545 AC 11/02 PO 09 Sodium Chloride 1,000 ML Q13H 11/01 1130 AC 11/02 IV 1321 Tamsulosin HCl 0.4 MG DAILY 10/30 1000 AC 11/02 PO 09 Tramadol HCl 50 MG Q6P PRN 11/01 0115 AC 11/01 PO 0205 Dose Instructions: (1)Lorazepam: See admin criteria Impression/Plan Impression/Problem List Impression: Mr. Ling 66-year-old male with extensive past medical history, was admitted for alcohol detox and was to found hematuria and dysuria. Patient had drop in hemoglobin 5.5 with hematuria with clots and was transferred to ICU for close monitoring. Problem list -Prostate cancer s/p radiation -Hepatitis C s/p interferon treatment -Alcohol abuse and opiate dependence -Diabetes mellitus -Hypertension and hyperlipidemia -COPD -Osteomyelitis s/p left below the knee amputation in May 2016 -Atrial fibrillation on Elequis -Mitral valve prolapse status post repair Respiratory -History of COPD not on home oxygen -Continue oxygen supplementation, keep saturation above 92% -TRC, nebulizers Infectious disease -Urine culture positive for Escherichia coli -Continue ceftriaxone 1000 mg daily Day#3 -Monitor fever, leukocytosis -upper respiratory and GI cultures are negative -Continue Flomax 0.4 mg daily Cardiovascular -History of atrial fibrillation on elequis -History of hypertension and hyperlipidemia -Continue metoprolol 25 mg daily -Continue atorvastatin 20 mg daily -Hold aspirin and Eliquis for now given active bleeding Hematology -Anemia of acute blood loss -H&H 5.5/16.3 -Difficulty obtaining blood that cross and match patient's blood given antibodies -Patient received 5 units of blood, will image her hemoglobin at 6 PM this evening -Hemoglobin more than 8 -Patient has history of prostate cancer status post radiation, hemorrhagic radiation cystitis is believed to be the cause of current active bleeding -Recommendations regarding the possibility of hyperbaric oxygen -Continue Kaiser catheter and continuous irrigation to prevent Kaiser clotting -Hemoccult stool Metabolic -History of diabetes -Continue Accu-Chek TIDAC, HS -NovoLog scale -Levemir 14 units daily Alimentary -Consistent carbohydrate 3 -Folic acid, thiamine, multivitamin Neurological -History of alcohol abuse and opioid dependence -Decrease Librium to 10 mg twice a day -Lorazepam CIWA score -Gabapentin 600 mg daily -Cymbalta 60 mg daily DVT prophylaxis ALPS Code FULL Consultation urology, cardiology Problem List: 1. A.FIBB S/P CARDIOVERSION 2. Alcohol dependence 3. Benign hypertension 4. COPD 5. History of prostate cancer 6. Acute blood loss anemia Pain Ratin Tomorrow's Labs & Rationales: ICU bundle, CBC Plan DVT/Prophylaxis: mechanical
--- NOTE | 2016-11-02 07:42 | PN- Urology ---
Subjective Subjective: No acute distress Objective Vital Signs and I&Os Vital Signs Date Time Temp Pulse Resp B/P B/P Pulse O2 O2 Flow FiO2 Mean Ox Delivery Rate 11/02 06 98.0 74 18 92/56 11/02 0400 98.2 74 18 108/70 11/02 0400 97 Nasal 2.0L Cannula 11/02 0200 97.9 74 16 98/60 11/02 0000 97.5 84 16 106/68 11/02 0000 97.5 84 16 106/68 96 Nasal 2.0L Cannula 11/02 0000 98 Nasal 2.0L Cannula 11/01 2218 Nasal 2.0L Cannula 11/01 2200 97.4 74 16 106/64 11/01 2000 98 Nasal 2.0L Cannula 11/01 1600 Nasal 2.0L Cannula 11/01 1600 98.6 85 22 122/70 11/01 1600 98.6 85 22 122/70 97 Room Air 11/01 1207 88 130/76 11/01 1200 Nasal 3.0L Cannula 11/01 1200 97.0 87 20 114/65 11/01 0938 88 120/88 Intake & Output 11/02 0811/02 0000 11/01 1600 11/01 0800 11/01 0000 10/31 1600 Intake Total 1218 1420 1840 1930 Output Total 2650 2200 500 1200 1100 Balance -1432 -780 1340 -1200 830 Intake, Blood 360 640 Product Intake, IV 281 607 2536 1450 Intake, Oral 300 480 240 480 Output, Urine 2650 2200 500 1200 1100 Abd: soft and non tender Genitalia: 3way king in place. CBI running at moderate rate with clear drainage Laboratory Tests 11/02 11/01 0420 2300 Chemistry Sodium (137 - 145 mmol/L) 136 L Potassium (3.5 - 5.1 mmol/L) 4.6 Chloride (98 - 107 mmol/L) 112 H Carbon Dioxide (22 - 30 mmol/L) 12 L Anion Gap (5 - 16) 11 BUN (9 - 20 mg/dL) 53 H Creatinine (0.7 - 1.2 mg/dL) 4.2 H Estimated GFR (>60 ml/min) 14 L Glucose (65 - 99 mg/dL) 139 H Calcium (8.4 - 10.2 mg/dL) 6.7 L Phosphorus (2.5 - 4.5 mg/dL) 7.7 H Magnesium (1.6 - 2.3 mg/dL) 1.6 Total Bilirubin (0.2 - 1.3 mg/dL) 0.3 AST (17 - 59 U/L) 15 L ALT (21 - 72 U/L) 29 Albumin (3.5 - 5.0 g/dL) 2.2 L Hematology CBC w Diff NO MAN DIFF REQ NO MAN DIFF REQ WBC (4.8 - 10.8 /CUMM) 5.1 6.6 RBC (4.70 - 6.10 /CUMM) 2.28 L 2.19 L Hgb (14.0 - 18.0 G/DL) 7.4 *L 7.0 *L Hct (42 - 52 %) 21.3 L 20.7 L MCV (80.0 - 94.0 FL) 93.4 94.5 H MCH (27.0 - 31.0 PG) 32.3 H 31.8 H RDW (11.5 - 14.5 %) 15.3 H 14.8 H Plt Count (130 - 400 /CUMM) 75 L 92 L MPV (7.4 - 10.4 FL) 7.4 7.3 L Gran % (42.2 - 75.2 %) 82.6 H 86.3 H Lymphocytes % (20.5 - 51.1 %) 4.9 L 4.0 L Monocytes % (1.7 - 9.3 %) 11.0 H 8.5 Eosinophils % (0 - 5 %) 1.4 1.2 Basophils % (0.0 - 2.0 %) 0.1 0 L Absolute Granulocytes (1.4 - 6.5 /CUMM) 4.2 5.7 Absolute Lymphocytes (1.2 - 3.4 /CUMM) 0.2 L 0.3 L Absolute Monocytes (0.10 - 0.60 /CUMM) 0.6 0.6 Absolute Eosinophils (0.0 - 0.7 /CUMM) 0.1 0.1 Absolute Basophils (0.0 - 0.2 /CUMM) 0 0 PUBS MCHC (33.0 - 37.0 G/DL) 34.6 33.7 11/01 1700 Chemistry Sodium (137 - 145 mmol/L) Cancelled 132 L Potassium (3.5 - 5.1 mmol/L) Cancelled 3.9 Chloride (98 - 107 mmol/L) Cancelled 105 Carbon Dioxide (22 - 30 mmol/L) Cancelled 14 L Anion Gap (5 - 16) Cancelled 14 BUN (9 - 20 mg/dL) Cancelled 54 H Creatinine (0.7 - 1.2 mg/dL) Cancelled 4.1 H Estimated GFR (>60 ml/min) 15 L Glucose (65 - 99 mg/dL) Cancelled 165 H Calcium (8.4 - 10.2 mg/dL) Cancelled 6.9 L Phosphorus (2.5 - 4.5 mg/dL) Cancelled 7.7 H Magnesium (1.6 - 2.3 mg/dL) Cancelled 1.6 Total Bilirubin (0.2 - 1.3 mg/dL) Cancelled 0.3 AST (17 - 59 U/L) Cancelled 18 ALT (21 - 72 U/L) Cancelled 30 Albumin (3.5 - 5.0 g/dL) Cancelled 2.8 L Hematology CBC w Diff Cancelled NO MAN DIFF REQ WBC (4.8 - 10.8 /CUMM) Cancelled 6.9 RBC (4.70 - 6.10 /CUMM) Cancelled 2.30 L Hgb (14.0 - 18.0 G/DL) Cancelled 7.3 *L Hct (42 - 52 %) Cancelled 21.5 L MCV (80.0 - 94.0 FL) Cancelled 93.3 MCH (27.0 - 31.0 PG) Cancelled 31.6 H RDW (11.5 - 14.5 %) Cancelled 15.2 H Plt Count (130 - 400 /CUMM) Cancelled 118 L MPV (7.4 - 10.4 FL) Cancelled 7.5 Gran % (42.2 - 75.2 %) 84.0 H Lymphocytes % (20.5 - 51.1 %) 5.6 L Monocytes % (1.7 - 9.3 %) 8.7 Eosinophils % (0 - 5 %) 1.7 Basophils % (0.0 - 2.0 %) 0 L Absolute Granulocytes (1.4 - 6.5 /CUMM) 5.8 Absolute Lymphocytes (1.2 - 3.4 /CUMM) 0.4 L Absolute Monocytes (0.10 - 0.60 /CUMM) 0.6 Absolute Eosinophils (0.0 - 0.7 /CUMM) 0.1 Absolute Basophils (0.0 - 0.2 /CUMM) 0 PUBS MCHC (33.0 - 37.0 G/DL) Cancelled 33.9 11/01 11/01 11/01 1220 1210 1210 Chemistry Sodium (137 - 145 mmol/L) 133 L Potassium (3.5 - 5.1 mmol/L) 3.3 L Chloride (98 - 107 mmol/L) 105 Carbon Dioxide (22 - 30 mmol/L) 15 L Anion Gap (5 - 16) 13 BUN (9 - 20 mg/dL) 53 H Creatinine (0.7 - 1.2 mg/dL) 4.1 H Estimated GFR (>60 ml/min) 15 L Glucose (65 - 99 mg/dL) 135 H Calcium (8.4 - 10.2 mg/dL) 6.9 L Phosphorus (2.5 - 4.5 mg/dL) 7.5 H Magnesium (1.6 - 2.3 mg/dL) 1.6 Total Bilirubin (0.2 - 1.3 mg/dL) 0.2 AST (17 - 59 U/L) 18 ALT (21 - 72 U/L) 28 Albumin (3.5 - 5.0 g/dL) 2.5 L Hematology CBC w Diff NO MAN DIFF REQ WBC (4.8 - 10.8 /CUMM) 4.8 RBC (4.70 - 6.10 /CUMM) 1.63 L Hgb (14.0 - 18.0 G/DL) 5.3 *L Hct (42 - 52 %) 15.2 *L MCV (80.0 - 94.0 FL) 93.4 MCH (27.0 - 31.0 PG) 32.4 H RDW (11.5 - 14.5 %) 15.7 H Plt Count (130 - 400 /CUMM) 110 L MPV (7.4 - 10.4 FL) 7.6 Gran % (42.2 - 75.2 %) 81.8 H Lymphocytes % (20.5 - 51.1 %) 7.5 L Monocytes % (1.7 - 9.3 %) 9.0 Eosinophils % (0 - 5 %) 1.6 Basophils % (0.0 - 2.0 %) 0.1 Absolute Granulocytes (1.4 - 6.5 /CUMM) 3.9 Absolute Lymphocytes (1.2 - 3.4 /CUMM) 0.4 L Absolute Monocytes (0.10 - 0.60 /CUMM) 0.4 Absolute Eosinophils (0.0 - 0.7 /CUMM) 0.1 Absolute Basophils (0.0 - 0.2 /CUMM) 0 PUBS MCHC (33.0 - 37.0 G/DL) 34.7 Urines Urine Color Cancelled Urine Clarity Cancelled Urine pH Cancelled Ur Specific [place] Cancelled Urine Protein Cancelled Urine Ketones Cancelled Urine Nitrite Cancelled Urine Bilirubin Cancelled Urine Urobilinogen Cancelled Ur Leukocyte Esterase Cancelled Ur Microscopic Cancelled Urine RBC Cancelled Urine Hemoglobin Cancelled Ur Random Creatinine Cancelled Ur Random Sodium Cancelled Ur Random Potassium Cancelled Fraction Sodium Excret Cancelled Urine Glucose Cancelled Assessment/Plan Assessment/Plan Imp: s/p cystoscopy, extensive clot evacuation and fulgeration of bleeding Cause of bleeding ? radiation cystitis as no gross bladder tumor see Plan: Would continue cefazolin for pos urine culture Could progressively slow down CBI as long as drainage remains clear
--- NOTE | 2016-11-02 07:46 | Operative Report ---
Operative/Inv Procedure Report Surgery Date: 11/01/16 Name of Procedure: Cystoscopy, extensive clot evacuation, fulguration of bleeding Pre-Operative Diagnosis: Gross hematuria and urinary clot retention Post-Operative Diagnosis: Same cause of bleeding likely radiation cystitis Estimated Blood Loss: 250 cc Surgeon/Cooker Sulfate: NAKUL CRUZ M.D Anesthesia: general endotracheal tube Drains: 24 M[place]ese three-way Kaiser Specimens: None Complications: None Condition: Fair Operative Indication: Gross hematuria, blood loss anemia, urinary clot retention Operative/Procedure Note Note: The patient was taken to the cystoscopy room and identified. As placed in supine position on the cystoscopy table. A timeout was executed appropriately with the patient awake. Gen. anesthesia was induced via an endotracheal tube was placed in dorsal lithotomy position and bimanual rectal exam revealed a nonnodular prostate. He was prepped and draped in usual fashion for cystoscopy. Surgical pause was executed appropriately. The 22 Maltese cystoscope sheath was placed into the bladder under direct vision. Anterior urethra was normal. The prostatic urethra did not appear to be obstructing. Upon entering the bladder a massive clot was visualized. The cystoscope was removed and the 26 Maltese resectoscope sheath placed using the obturator. Using the Tetherball evacuator the blood clot in the bladder was eventually irrigated out. This was extremely difficult. It was time consuming as well. Eventually all clot was irrigated from the bladder with the exception of some clot at the 12 o'clock position just inside the bladder neck. Using the working element of the resectoscope this clot was freed from the wall of the bladder. A bleeding vessel was noted there which was cauterized using the loop. Cystoscopy was then performed in more detail. The bladder mucosa was diffusely erythematous and there was oozing from multiple areas although the main area appeared just inside the bladder neck at the 12 o'clock position. Using the rollerball the oozing areas were cauterized. At this point no active bleeding was noted. The bladder was left full and the resectoscope removed. A 24 M[place]ese three-way Kaiser catheter was inserted and continuous bladder irrigation begun with clear drainage. Patient tolerated the procedure fairly well and as completion was taken back to the intensive care unit or condition Findings: Massive blood clot in the bladder, diffuse oozing from bladder mucosa with most of the bleeding at the 12 o'clock position just inside the bladder neck. Findings likely related to radiation cystitis Discharge Disposition: Critical Care Unit
--- NOTE | 2016-11-02 09:43 | PN- CRCU ---
Subjective HPI/Critical Care Issues: The patient is awake and alert. He reports having increased anxiety which he attributes to alcohol withdrawal. The patient remains afebrile with blood pressures in the low 100s. His respiratory status is stable noting he is on 2 L nasal cannula with saturations in the high 90s. The patient was taken to the OR last night, noting there was a massive blood clot in the bladder with diffuse oozing from bladder mucosa, findings likely related to radiation cystitis. Objective Current Medications: Current Medications Sig/Avery Start time Last Medication Dose Route Stop Time Status Admin Acetaminophen 1,000 MG Q6H PRN 10/31 1500 AC 11/01 N/A 1 UNIT IV 0651 Albuterol Sulfate 3 ML Q4P PRN 11/01 2300 AC 11/02 INH 0845 Albuterol Sulfate 2 PUF Q4-6 PRN PRN 10/30 0930 AC 10/30 INH 1039 Atorvastatin Calcium 20 MG DAILY 10/30 1000 AC 11/01 PO 0937 Benzocaine/Menthol 1 LANI ONCE ONE 11/01 1700 DC 11/01 PO 11/01 1701 1901 Budesonide/ 2 PUF BID 10/30 1000 AC 11/01 Formoterol Fumarate INH 2307 Ceftriaxone Sodium 1,000 MG DAILY 11/01 0815 AC 11/01 IV 0939 Chlordiazepoxide HCl 10 MG TID 11/01 1600 AC 11/01 PO 2307 Chlordiazepoxide HCl 25 MG TID 10/30 1600 DC 11/01 PO 0937 Duloxetine HCl 60 MG DAILY 10/30 1000 AC 11/01 PO 0936 Fentanyl Citrate 200 MCG .STK-MED ONE 11/02 1927 DC IM 11/01 1928 Folic Acid 1 MG DAILY 10/30 1000 AC 11/01 PO 0936 Gabapentin 600 MG TID 10/30 1000 AC 11/01 PO 2307 Insulin Aspart 0 TIDAC 10/31 1200 AC 11/01 SC 1204 Insulin Detemir 14 UNITS DAILY 10/30 1000 AC 11/01 SC 0945 Lorazepam See Dose Q1P PRN 10/30 1400 AC 11/02 Insts (1) IV 0814 Magnesium Hydroxide 30 ML ONE PRN 11/01 1545 AC PO Metoprolol Succinate 25 MG DAILY 10/30 1000 AC 11/01 PO 1207 Midazolam HCl 2 MG .STK-MED ONE 11/02 1927 DC IM 05/09 1929 Morphine Sulfate 4 MG Q6-PRN PRN 11/01 1600 AC 11/01 IV 1555 Morphine Sulfate 2 MG ONCE ONE 11/01 1500 DC 11/01 IV 11/01 1501 1451 Multivitamins 1 TAB DAILY 10/30 1000 AC 11/01 PO 0936 Polyethylene Glycol 17 GM DAILY 11/01 1544 AC 11/01 PO 1716 Potassium Chloride 40 MEQ ONCE ONE 11/01 1515 DC 11/01 PO 11/01 1516 1554 Potassium Chloride 40 MEQ ONCE ONE 11/01 1200 DC 11/01 PO 11/01 1201 1207 Senna/Docusate Sodium 1 TAB BID PRN 11/01 1545 AC PO Sodium Chloride 1,000 ML Q13H 11/01 1130 AC 11/02 IV 0517 Tamsulosin HCl 0.4 MG DAILY 10/30 1000 AC 11/01 PO 0938 Thiamine HCl 100 MG DAILY 10/30 1000 DC 11/01 PO 11/01 1001 0937 Tramadol HCl 50 MG Q6P PRN 11/01 0115 AC 11/01 PO 0205 Dose Instructions: (1)Lorazepam: See admin criteria Vital Signs & I&O Last 24 Hrs of Vitals and I&O: Vital Signs Date Time Temp Pulse Resp B/P B/P Pulse O2 O2 Flow FiO2 Mean Ox Delivery Rate 11/02 0846 94 Nasal 2.0L Cannula 11/02 0800 98 Nasal 2.0L Cannula 11/02 0800 97.2 72 31 116/70 98 Nasal 2.0L Cannula 11/02 0600 98.0 74 18 92/56 11/02 0400 98.2 74 18 108/70 11/02 0400 97 Nasal 2.0L Cannula 11/02 0200 97.9 74 16 98/60 05 0000 97.5 84 16 106/68 11/02 0000 97.5 84 16 106/68 96 Nasal 2.0L Cannula 11/02 0000 98 Nasal 2.0L Cannula 11/01 2218 Nasal 2.0L Cannula 11/01 2200 97.4 74 16 106/64 11/01 2000 98 Nasal 2.0L Cannula 11/01 1600 Nasal 2.0L Cannula 11/01 1600 98.6 85 22 122/70 11/01 1600 98.6 85 22 122/70 97 Room Air 11/01 1207 88 130/76 11/01 1200 Nasal 3.0L Cannula 11/01 1200 97.0 87 20 114/65 11/01 0938 88 120/88 Intake & Output 11/02 1600 11/02 0800 11/02 0000 Intake Total 1218 1420 Output Total 2650 2200 Balance -1432 -780 Intake, Blood 360 640 Product Intake, IV 558 300 Intake, Oral 300 480 Output, Urine 2650 2200 Physical Exam General Appearance: no apparent distress, alert, awake, comfortable Head: atraumatic Ears, Nose, Throat: pale mucous membranes Respiratory: normal breath sounds, chest non-tender, no respiratory distress Cardiovascular: irregularly irregular Gastrointestinal: normal bowel sounds, soft, non-tender Back: normal inspection, normal range of motion Extremities: RUE Picc line, no erythema, LLE BKA Cranial Nerves: normal hearing, normal speech Results Last 24 Hrs of Lab Results: Laboratory Tests 11/02/16 0420: Anion Gap 11, Estimated GFR 14 L, Glucose 139 H, Calcium 6.7 L, Phosphorus 7.7 H, Magnesium 1.6, Total Bilirubin 0.3, AST 15 L, ALT 29, Albumin 2.2 L, CBC w Diff NO MAN DIFF REQ, RBC 2.28 L, MCV 93.4, MCH 32.3 H, RDW 15.3 H, MPV 7.4, Gran % 82.6 H, Lymphocytes % 4.9 L, Monocytes % 11.0 H, Eosinophils % 1.4, Basophils % 0.1, Absolute Granulocytes 4.2, Absolute Lymphocytes 0.2 L, Absolute Monocytes 0.6, Absolute Eosinophils 0.1, Absolute Basophils 0, PUBS MCHC 34.6 11/01/16 2300: CBC w Diff NO MAN DIFF REQ, RBC 2.19 L, MCV 94.5 H, MCH 31.8 H, RDW 14.8 H, MPV 7.3 L, Gran % 86.3 H, Lymphocytes % 4.0 L, Monocytes % 8.5, Eosinophils % 1.2, Basophils % 0 L, Absolute Granulocytes 5.7, Absolute Lymphocytes 0.3 L, Absolute Monocytes 0.6, Absolute Eosinophils 0.1, Absolute Basophils 0, PUBS MCHC 33.7 11/01/16 2000: Sodium Cancelled, Potassium Cancelled, Chloride Cancelled, Carbon Dioxide Cancelled, Anion Gap Cancelled, BUN Cancelled, Creatinine Cancelled, Glucose Cancelled, Calcium Cancelled, Phosphorus Cancelled, Magnesium Cancelled, Total Bilirubin Cancelled, AST Cancelled, ALT Cancelled, Albumin Cancelled, CBC w Diff Cancelled, WBC Cancelled, RBC Cancelled, Hgb Cancelled, Hct Cancelled, MCV Cancelled, MCH Cancelled, RDW Cancelled, Plt Count Cancelled, MPV Cancelled, [facility] Cancelled 11/01/16 1700: Anion Gap 14, Estimated GFR 15 L, Glucose 165 H, Calcium 6.9 L, Phosphorus 7.7 H, Magnesium 1.6, Total Bilirubin 0.3, AST 18, ALT 30, Albumin 2.8 L, CBC w Diff NO MAN DIFF REQ, RBC 2.30 L, MCV 93.3, MCH 31.6 H, RDW 15.2 H, MPV 7.5 , Gran % 84.0 H, Lymphocytes % 5.6 L, Monocytes % 8.7, Eosinophils % 1.7, Basophils % 0 L, Absolute Granulocytes 5.8, Absolute Lymphocytes 0.4 L, Absolute Monocytes 0.6, Absolute Eosinophils 0.1, Absolute Basophils 0, PSYCHIATRIC 33.9 11/01/16 1220: Anion Gap 13, Estimated GFR 15 L, Glucose 135 H, Calcium 6.9 L, Phosphorus 7.5 H, Magnesium 1.6, Total Bilirubin 0.2, AST 18, ALT 28, Albumin 2.5 L, CBC w Diff NO MAN DIFF REQ, RBC 1.63 L, MCV 93.4, MCH 32.4 H, RDW 15.7 H, MPV 7.6 , Gran % 81.8 H, Lymphocytes % 7.5 L, Monocytes % 9.0, Eosinophils % 1.6, Basophils % 0.1, Absolute Granulocytes 3.9, Absolute Lymphocytes 0.4 L, Absolute Monocytes 0.4, Absolute Eosinophils 0.1, Absolute Basophils 0, [facility] 34.7 11/01/16 1210: Urine Color Cancelled, Urine Clarity Cancelled, Urine pH Cancelled, Ur Specific [place] Cancelled, Urine Protein Cancelled, Urine Ketones Cancelled, Urine Nitrite Cancelled, Urine Bilirubin Cancelled, Urine Urobilinogen Cancelled, Ur Leukocyte Esterase Cancelled, Ur Microscopic Cancelled, Urine RBC Cancelled, Urine Hemoglobin Cancelled, Urine Glucose Cancelled 11/01/16 1210: Ur Random Creatinine Cancelled, Ur Random Sodium Cancelled, Ur Random Potassium Cancelled, Fraction Sodium Excret Cancelled Diagnostic Data CT Scan Findings: 1. Large hyperdense hematoma within the lumen of the urinary bladder surrounds the Kaiser balloon. There is no evidence of bladder wall perforation. Note that it is not possible to exclude a mucosal lesion of the posterior bladder wall due to presence of the hematoma. 2. No evidence of urolithiasis. 3. There are old, relatively large abdominal wall hernias, one containing transverse colon and another containing short segment of unobstructed small bowel. No acute findings along the gastrointestinal tract. 4. Incidentally detected are tree in-bud nodular opacities in left lower lobe. Correlate for any recent clinical signs/symptoms of bronchiolitis. Impression/Plan Impression/Plan Impression/Plan: 1. 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 2. Acute kidney injury, superimposed on chronic disease. 3. EtOH withdrawal. 4. Insulin-dependent diabetes. 5. UTI, on ceftriaxone. 6. Treat in bud opacities left lower lobe, nonspecific. No evidence of active pneumonia. 7. Hypertension and hyperlipidemia. 8. History of a defibrillation, status post ablation and maze procedure, currently in AF on anticoagulation as outpatient. 9. Mitral valve prolapse status post repair. 10. Multiple comorbidities including bladder cancer status post radiation therapy, autoimmune hemolytic anemia, Waldenstroms macroglobulinemia, history of endocarditis, and hx of hepatitis C. 11. Obstructive lung disease. Recommendations: * Transfuse 1 additional unit of packed red blood cells today. Check a follow- up CBC posttransfusion. * Provide electrolyte repletion as necessary. * Will follow up urology's recommendations. * Consult Dr. Mack for recommendations regarding the possibility of HBO in the setting of hemorrhagic radiation cystitis. * Continue gentle IVF rehydration, will follow up nephrology recommendations. * Continue ceftriaxone. * EtOH pathway and treatment. Monitor for withdrawal seizures. * Continue multivitamin, thiamine and folate. * Continue pain pathway. * Continue insulin sliding scale. * Continue metoprolol, will follow up cardiology's recommendations. * Continue nebs/TRC/inhaler regimen. * Alps for DVT prophylaxis. * PICC line still necessary for poor access. * Appreciate all consultants input.
--- NOTE | 2016-11-02 10:26 | ECHOCARDIOGRAM REPORT ---
BRANDYN BORDEN Age: 66 : 1950 Gender: M Exam Date: 11/01/2016 16:17 Exam Location: [facility] Ht (in): 71 Wt (lb): 209 BSA: 2.20 BP: 130 / 76 Ordering Physician: LOKI LINTON MD Referring Physician: Girish Ann MD, PhD Technologist: Osiris Ko ROXANA Room Number: 113 Indications: HYPOTENSION Rhythm: Atrial fibrillation Technical Quality: Fair FINDINGS Left Ventricle Normal size left ventricle. Mild concentric left ventricular hypertrophy. No obvious regional wall motion abnormalities. Normal left ventricular ejection fraction visually estimated at >65%. Right Ventricle Moderate right ventricular dilatation. Right Atrium Mild to moderate right atrial dilatation. Left Atrium Moderate left atrial dilatation. Mitral Valve An annuloplasty ring noted in the mitral position. Mitral valve mildly thickened. Trace mitral regurgitation. Aortic Valve Trileaflet aortic valve. Diffuse mild thickening of the aortic valve cusps with mildly reduced excursion. No hemodynamically significant aortic stenosis. No aortic regurgitation. Tricuspid Valve Structurally normal tricuspid valve. Trace tricuspid regurgitation. Right ventricular systolic pressure estimated at 36 mmHg. Pulmonic Valve Pulmonic valve not well visualized. Trace pulmonic regurgitation. Pericardium No pericardial effusion. Great Vessels Normal size aortic root. Mildly dilated ascending aorta. Mildly dilated inferior vena cava. CONCLUSIONS Normal size left ventricle. Mild concentric left ventricular hypertrophy. No obvious regional wall motion abnormalities. Normal left ventricular ejection fraction visually estimated at > 65%. Moderate right ventricular dilatation. Mild to moderate right atrial dilatation. Moderate left atrial dilatation. Trace mitral regurgitation. Trace tricuspid regurgitation. Right ventricular systolic pressure estimated at 36 mmHg. Trace pulmonic regurgitation. Mildly dilated ascending aorta. Mildly dilated inferior vena cava. Tanner Lewis M.D. (Electronically Signed) Final Date: 02 Nov 2016 10:26 MEASUREMENTS (Male / Female) Normal Values 2D ECHO LV Diastolic Diameter PLAX 5.2 cm 4.2 - 5.9 / 3.9 - 5.3 cm LV Systolic Diameter PLAX 3.0 cm 2.1 - 4.0 cm LV Fractional Shortening PLAX 42.3 % 25 - 46 % LV Ejection Fraction 2D Teich 73.0 % IVS Diastolic Thickness 1.1 cm LVPW Diastolic Thickness 1.1 cm LV Relative Wall Thickness 0.4 RV Internal Dim ED PLAX 4.2 cm 1.9 - 3.8 cm LVOT Diameter 1.9 cm Aortic Root Diameter 3.5 cm LA Systolic Diameter LX 5.4 cm 3.0 - 4.0 / 2.7 - 3.8 cm LA Volume 86.0 cm 18 - 58 / 22 - 52 cm Ascending Aorta Diameter 3.7 cm DOPPLER AV Peak Velocity 184.0 cm/s AV Peak Gradient 13.5 mmHg AV Mean Velocity 124.0 cm/s AV Mean Gradient 7.0 mmHg AV Velocity Time Integral 31.8 cm LVOT Peak Velocity 116.0 cm/s LVOT Peak Gradient 5.4 mmHg LVOT Mean Velocity 86.6 cm/s LVOT Mean Gradient 3.0 mmHg LVOT Velocity Time Integral 19.9 cm LVOT Stroke Volume 56.4 cm AV Area Cont Eq vti 1.8 cm AV Area Cont Eq pk 1.8 cm MV Peak Velocity 184.0 cm/s MV Peak Gradient 13.5 mmHg MV Mean Velocity 88.1 cm/s MV Mean Gradient 4.0 mmHg Mitral E Point Velocity 155.0 cm/s MV PHT Velocity 189.0 cm/s MV Deceleration Andrews 511.0 cm/s MV Pressure Half Time 111.0 ms MV Area PHT 2.0 cm MV Deceleration Time 386.0 ms TR Peak Velocity 277.0 cm/s TR Peak Gradient 30.7 mmHg Right Atrial Pressure 5.0 mmHg Pulmonary Artery Systolic Pressu 35.7 mmHg Right Ventricular Systolic Press 35.7 mmHg PV Peak Velocity 139.0 cm/s PV Peak Gradient 7.7 mmHg PV Mean Velocity 81.3 cm/s PV Mean Gradient 3.0 mmHg PV Velocity Time Integral 18.3 cm LV E' Lateral Velocity 16.8 cm/s Mitral E to LV E' Lateral Ratio 9.2 LV E' Septal Velocity 4.1 cm/s Mitral E to LV E' Septal Ratio 37.9
--- NOTE | 2016-11-02 12:55 | PN- Cardiology ---
Subjective Subjective: * No complaints. * atrial fibrillation * creatinine 4.2 * calcium is 6.7 * H/H remains low with low platelets of 75 Objective Vital Signs and I&Os Vital Signs Date Time Temp Pulse Resp B/P B/P Pulse O2 O2 Flow FiO2 Mean Ox Delivery Rate 11/02 1200 97 Nasal 2.0L Cannula 11/02 0846 94 Nasal 2.0L Cannula 11/02 0800 98 Nasal 2.0L Cannula 11/02 0800 97.2 72 31 116/70 98 Nasal 2.0L Cannula 11/02 0600 98.0 74 18 92/56 11/02 0400 98.2 74 18 108/70 11/02 0400 97 Nasal 2.0L Cannula 11/02 0200 97.9 74 16 98/60 05 0000 97.5 84 16 106/68 11/02 0000 97.5 84 16 106/68 96 Nasal 2.0L Cannula 11/02 0000 98 Nasal 2.0L Cannula 11/01 2218 Nasal 2.0L Cannula 11/01 2200 97.4 74 16 106/64 11/01 2000 98 Nasal 2.0L Cannula 11/01 1600 Nasal 2.0L Cannula 11/01 1600 98.6 85 22 122/70 11/01 1600 98.6 85 22 122/70 97 Room Air Intake & Output 11/02 1600 11/02 0800 10 0000 11/01 1600 11/01 0800 11/01 0000 Intake Total 1218 1420 1840 Output Total 2650 2200 500 1200 Balance -1432 -780 1340 -1200 Intake, Blood 360 640 Product Intake, IV 580 731 6692 Intake, Oral 300 480 240 Output, Urine 2650 2200 500 1200 Physical Exam: General: WD/ obese male in NAD; alert and oriented x 3 HEENT: NC/ AT, PERRL, EOMI Neck: no JVD, no carotid bruit Heart: irregularly irregular w/o murmur Lungs: expiratory wheezing bilaterally Abdomen: soft, Obese, NT, +ve bowel sounds Extremities: no edema, left BKA Assessment/Plan Assessment/Plan * Blood pressure is improved. Continue Metoprolol for now. Otherwise hold all antihypertensive medications. No anticoagulation for his atrial fibrillation at this time. * Patient is improved following blood transfusion and is tolerating his anemia well. This is expected to improve following surgerical fulguration for his radiation cystitis. Follow platelet level. * Replete calcium if corrected level remains low, especially after multiple blood transfusions * This patient is wheezing. Consider an albuterol nebulizer. Continue telemetry? Yes
[2016-11-02 13:29] LABS: ABSOLUTE BASOPHIL COUNT 0 /CUMM (0.0-0.2); ABSOLUTE EOSINOPHIL COUNT 0.1 /CUMM (0.0-0.7); ABSOLUTE GRANULOCYTE CT 3.5 /CUMM (1.4-6.5); ABSOLUTE LYMPH COUNT 0.2 /CUMM (1.2-3.4); ABSOLUTE MONOCYTE COUNT 0.4 /CUMM (0.10-0.60); BASOPHIL % 0.1 % (0.0-2.0); EOSINOPHIL % 2.6 % (0-5); GRANULOCYTE % 81.8 % (42.2-75.2); HEMATOCRIT 21.6 % (42-52); MEAN CORPUSCULAR HGB 31.4 PG (27.0-31.0); MEAN CORPUSCULAR HGB CONC 34.4 G/DL (33.0-37.0); MEAN CORPUSCULAR VOLUME 91.3 FL (80.0-94.0); MEAN PLATELET VOLUME 6.8 FL (7.4-10.4); PLATELET COUNT 71 /CUMM (130-400); RBC DISTRIBUTION WIDTH 15.8 % (11.5-14.5); RED BLOOD CELL CT 2.37 /CUMM (4.70-6.10); WHITE BLOOD CELL COUNT 4.3 /CUMM (4.8-10.8)
--- NOTE | 2016-11-02 17:42 | PN- Nephrology ---
Assessment/Plan Assessment: 1. CKD stage III likely multifactorial including hepatitis C associated chronic GN, diabetes mellitus and hypertension 2. Acute kidney injury which at this time does not appear to have been obstructive in nature as there is no sign of recovery despite evacuation of bladder clots. Suspect an element of acute tubular necrosis 3. Metabolic acidosis with normal anion gap 4. Interstitial cystitis related to previous radiation therapy 5. COPD with bronchospasm 6. Multiple comorbidities as noted Suggestion: 1. Continue maintenance IV fluids and CBI 2. Sodium bicarbonate tablets 650 mg by mouth 3 times a day; if no improvement in his serum CO2 level tomorrow will need to add bicarbonate to his IV fluids 3. Monitor chemistries daily 4. Consider HBO for long-term treatment of the radiation cystitis 5. Management of bronchospasm per pulmonary Subjective Subjective: Patient feels somewhat more comfortable today with no significant abdominal pain since evacuation of blood clots. He does have mild shortness of breath and wheezing which is not unusual for him. Renal function has not significantly changed since the cystoscopy and clot evacuation. Objective Vital Signs and I&Os Vital Signs Date Time Temp Pulse Resp B/P B/P Pulse O2 O2 Flow FiO2 Mean Ox Delivery Rate 11/02 1600 97 Nasal 2.0L Cannula 11/02 1600 98.1 64 24 118/70 95 Nasal 2.0L Cannula 11/02 1200 97 Nasal 2.0L Cannula 11/02 0846 94 Nasal 2.0L Cannula 11/02 0800 98 Nasal 2.0L Cannula 11/02 0800 97.2 72 31 116/70 98 Nasal 2.0L Cannula 11/02 0600 98.0 74 18 92/56 11/02 0400 98.2 74 18 108/70 11/02 0400 97 Nasal 2.0L Cannula 11/02 0200 97.9 74 16 98/60 05/10 0000 97.5 84 16 106/68 05/ 0000 97.5 84 16 106/68 96 Nasal 2.0L Cannula 11/02 0000 98 Nasal 2.0L Cannula 11/01 2218 Nasal 2.0L Cannula 11/01 2200 97.4 74 16 106/64 / 2000 98 Nasal 2.0L Cannula Intake & Output 11/02 1600 05/10 0400 11/01 1600 11/01 0400 10/31 1600 10/31 0400 Intake Total 2518 1420 1840 3010 900 Output Total 3300 2200 500 1200 2300 450 Balance -782 -780 1340 -1200 710 450 Intake, Blood 360 640 Product Intake, IV 4427 300 3942 2050 300 Intake, Oral 900 480 240 960 600 Output, Urine 3300 2200 500 1200 2300 450 Patient 210 lb Weight Weight Reported by Patient Measurement Method Physical Exam: General: Well-developed, obese white male in NAD Skin: No rash or jaundice HEENT: Conjunctivae pale, sclerae anicteric, mucous membranes dry Neck: Without masses or thyromegaly, no supraclavicular or cervical adenopathy Chest: Wheezes and rhonchi bilaterally Heart: Irregular rhythm without S3 or rub Abdomen: Obese, soft, nontender with an asymmetric longitudinal surgical scar below the umbilicus, ventral hernia Extremities: No edema. 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 No focal findings, no asterixis or myoclonus Current Medications: Current Medications Sig/Avery Start time Last Medication Dose Route Stop Time Status Admin Acetaminophen 1,000 MG Q6H PRN 10/31 1500 AC 11/01 N/A 1 UNIT IV 0651 Albuterol Sulfate 3 ML Q4P PRN 11/01 2300 AC 11/02 INH 0845 Albuterol Sulfate 2 PUF Q4-6 PRN PRN 10/30 0930 AC 10/30 INH 1039 Atorvastatin Calcium 20 MG DAILY 10/30 1000 AC 11/02 PO 0926 Budesonide/ 2 PUF BID 10/30 1000 AC 11/02 Formoterol Fumarate INH 0927 Calcium Gluconate 500 MG ONCE ONE 11/02 1445 DC 11/02 PO 11/02 1446 1727 Ceftriaxone Sodium 1,000 MG DAILY 11/01 0815 AC 11/02 IV 0925 Chlordiazepoxide HCl 10 MG BID 11/02 2200 AC PO Chlordiazepoxide HCl 10 MG TID 11/01 1600 DC 11/02 PO 09 Duloxetine HCl 60 MG DAILY 10/30 999 AC 11/02 PO 09 Fentanyl Citrate 200 MCG .STK-MED ONE 11/02 1927 DC IM 11/01 1928 Folic Acid 1 MG DAILY 10/30 1000 AC 11/02 PO 0926 Gabapentin 600 MG TID 10/30 1000 AC 11/02 PO 1727 Insulin Aspart 0 TIDAC 05/08 1200 AC 11/02 SC 1133 Insulin Detemir 14 UNITS DAILY 10/30 1000 AC 11/02 SC 0925 Lorazepam See Dose Q1P PRN 10/30 1400 AC 11/02 Insts (1) IV 0814 Magnesium Hydroxide 30 ML ONE PRN 11/01 1545 AC PO Magnesium Sulfate 1 GM ONCE ONE 11/02 1330 DC 11/02 Dextrose/Water 100 ML IV 11/02 1729 1327 Metoprolol Succinate 25 MG DAILY 11/03 1000 AC PO Metoprolol Succinate 25 MG DAILY 10/30 1000 DC 11/02 PO 0926 Midazolam HCl 2 MG .STK-MED ONE 11/02 1927 DC IM 11/01 192 Morphine Sulfate 4 MG Q6-PRN PRN 11/01 1600 AC 11/01 IV 1555 Multivitamins 1 TAB DAILY 10/30 1000 AC 11/02 PO 0926 Polyethylene Glycol 17 GM DAILY 11/01 1544 AC 11/02 PO 0927 Senna/Docusate Sodium 1 TAB BID PRN 11/01 1545 AC 11/02 PO 0926 Sodium Chloride 1,000 ML Q13H 11/01 1130 AC 11/02 IV 1321 Tamsulosin HCl 0.4 MG DAILY 10/30 1000 AC 11/02 PO 0927 Tramadol HCl 50 MG Q6P PRN 11/01 0115 AC 11/01 PO 0205 Dose Instructions: (1)Lorazepam: See admin criteria Results Pertinent Lab Results: Laboratory Tests 11/02 11/02 1307 0420 Chemistry Sodium (137 - 145 mmol/L) 136 L Potassium (3.5 - 5.1 mmol/L) 4.6 Chloride (98 - 107 mmol/L) 112 H Carbon Dioxide (22 - 30 mmol/L) 12 L Anion Gap (5 - 16) 11 BUN (9 - 20 mg/dL) 53 H Creatinine (0.7 - 1.2 mg/dL) 4.2 H Estimated GFR (>60 ml/min) 14 L Glucose (65 - 99 mg/dL) 139 H Calcium (8.4 - 10.2 mg/dL) 6.7 L Phosphorus (2.5 - 4.5 mg/dL) 7.7 H Magnesium (1.6 - 2.3 mg/dL) 1.6 Total Bilirubin (0.2 - 1.3 mg/dL) 0.3 AST (17 - 59 U/L) 15 L ALT (21 - 72 U/L) 29 Albumin (3.5 - 5.0 g/dL) 2.2 L Hematology CBC w Diff NO MAN DIFF REQ NO MAN DIFF REQ WBC (4.8 - 10.8 /CUMM) 4.3 L 5.1 RBC (4.70 - 6.10 /CUMM) 2.37 L 2.28 L Hgb (14.0 - 18.0 G/DL) 7.4 *L 7.4 *L Hct (42 - 52 %) 21.6 L 21.3 L MCV (80.0 - 94.0 FL) 91.3 93.4 MCH (27.0 - 31.0 PG) 31.4 H 32.3 H RDW (11.5 - 14.5 %) 15.8 H 15.3 H Plt Count (130 - 400 /CUMM) 71 L 75 L MPV (7.4 - 10.4 FL) 6.8 L 7.4 Gran % (42.2 - 75.2 %) 81.8 H 82.6 H Lymphocytes % (20.5 - 51.1 %) 5.1 L 4.9 L Monocytes % (1.7 - 9.3 %) 10.4 H 11.0 H Eosinophils % (0 - 5 %) 2.6 1.4 Basophils % (0.0 - 2.0 %) 0.1 0.1 Absolute Granulocytes (1.4 - 6.5 /CUMM) 3.5 4.2 Absolute Lymphocytes (1.2 - 3.4 /CUMM) 0.2 L 0.2 L Absolute Monocytes (0.10 - 0.60 /CUMM) 0.4 0.6 Absolute Eosinophils (0.0 - 0.7 /CUMM) 0.1 0.1 Absolute Basophils (0.0 - 0.2 /CUMM) 0 0 PUBS MCHC (33.0 - 37.0 G/DL) 34.4 34.6 11/01 11/01 2300 1999 Chemistry Sodium Cancelled Potassium Cancelled Chloride Cancelled Carbon Dioxide Cancelled Anion Gap Cancelled BUN Cancelled Creatinine Cancelled Glucose Cancelled Calcium Cancelled Phosphorus Cancelled Magnesium Cancelled Total Bilirubin Cancelled AST Cancelled ALT Cancelled Albumin Cancelled Hematology CBC w Diff NO MAN DIFF REQ Cancelled WBC (4.8 - 10.8 /CUMM) 6.6 Cancelled RBC (4.70 - 6.10 /CUMM) 2.19 L Cancelled Hgb (14.0 - 18.0 G/DL) 7.0 *L Cancelled Hct (42 - 52 %) 20.7 L Cancelled MCV (80.0 - 94.0 FL) 94.5 H Cancelled MCH (27.0 - 31.0 PG) 31.8 H Cancelled RDW (11.5 - 14.5 %) 14.8 H Cancelled Plt Count (130 - 400 /CUMM) 92 L Cancelled MPV (7.4 - 10.4 FL) 7.3 L Cancelled Gran % (42.2 - 75.2 %) 86.3 H Lymphocytes % (20.5 - 51.1 %) 4.0 L Monocytes % (1.7 - 9.3 %) 8.5 Eosinophils % (0 - 5 %) 1.2 Basophils % (0.0 - 2.0 %) 0 L Absolute Granulocytes (1.4 - 6.5 /CUMM) 5.7 Absolute Lymphocytes (1.2 - 3.4 /CUMM) 0.3 L Absolute Monocytes (0.10 - 0.60 /CUMM) 0.6 Absolute Eosinophils (0.0 - 0.7 /CUMM) 0.1 Absolute Basophils (0.0 - 0.2 /CUMM) 0 PUBS MCHC (33.0 - 37.0 G/DL) 33.7 Cancelled 11/01 05 1700 1220 Chemistry Sodium (137 - 145 mmol/L) 132 L 133 L Potassium (3.5 - 5.1 mmol/L) 3.9 3.3 L Chloride (98 - 107 mmol/L) 105 105 Carbon Dioxide (22 - 30 mmol/L) 14 L 15 L Anion Gap (5 - 16) 14 13 BUN (9 - 20 mg/dL) 54 H 53 H Creatinine (0.7 - 1.2 mg/dL) 4.1 H 4.1 H Estimated GFR (>60 ml/min) 15 L 15 L Glucose (65 - 99 mg/dL) 165 H 135 H Calcium (8.4 - 10.2 mg/dL) 6.9 L 6.9 L Phosphorus (2.5 - 4.5 mg/dL) 7.7 H 7.5 H Magnesium (1.6 - 2.3 mg/dL) 1.6 1.6 Total Bilirubin (0.2 - 1.3 mg/dL) 0.3 0.2 AST (17 - 59 U/L) 18 18 ALT (21 - 72 U/L) 30 28 Albumin (3.5 - 5.0 g/dL) 2.8 L 2.5 L Hematology CBC w Diff NO MAN DIFF REQ NO MAN DIFF REQ WBC (4.8 - 10.8 /CUMM) 6.9 4.8 RBC (4.70 - 6.10 /CUMM) 2.30 L 1.63 L Hgb (14.0 - 18.0 G/DL) 7.3 *L 5.3 *L Hct (42 - 52 %) 21.5 L 15.2 *L MCV (80.0 - 94.0 FL) 93.3 93.4 MCH (27.0 - 31.0 PG) 31.6 H 32.4 H RDW (11.5 - 14.5 %) 15.2 H 15.7 H Plt Count (130 - 400 /CUMM) 118 L 110 L MPV (7.4 - 10.4 FL) 7.5 7.6 Gran % (42.2 - 75.2 %) 84.0 H 81.8 H Lymphocytes % (20.5 - 51.1 %) 5.6 L 7.5 L Monocytes % (1.7 - 9.3 %) 8.7 9.0 Eosinophils % (0 - 5 %) 1.7 1.6 Basophils % (0.0 - 2.0 %) 0 L 0.1 Absolute Granulocytes (1.4 - 6.5 /CUMM) 5.8 3.9 Absolute Lymphocytes (1.2 - 3.4 /CUMM) 0.4 L 0.4 L Absolute Monocytes (0.10 - 0.60 /CUMM) 0.6 0.4 Absolute Eosinophils (0.0 - 0.7 /CUMM) 0.1 0.1 Absolute Basophils (0.0 - 0.2 /CUMM) 0 0 PUBS MCHC (33.0 - 37.0 G/DL) 33.9 34.7 11/01 11/01 11/01 1210 1210 0400 Chemistry Sodium (137 - 145 mmol/L) 131 L Potassium (3.5 - 5.1 mmol/L) 3.6 Chloride (98 - 107 mmol/L) 105 Carbon Dioxide (22 - 30 mmol/L) 15 L Anion Gap (5 - 16) 12 BUN (9 - 20 mg/dL) 52 H Creatinine (0.7 - 1.2 mg/dL) 4.2 H Estimated GFR (>60 ml/min) 14 L BUN/Creatinine Ratio (7 - 25 %) 12.4 Magnesium (1.6 - 2.3 mg/dL) 1.6 Coagulation PT (9.4 - 12.5 SEC) 10.8 INR (0.90 - 1.17) 1.03 Hematology CBC w Diff NO MAN DIFF REQ WBC (4.8 - 10.8 /CUMM) 6.4 RBC (4.70 - 6.10 /CUMM) 1.75 L Hgb (14.0 - 18.0 G/DL) 5.5 *L Hct (42 - 52 %) 16.3 *L MCV (80.0 - 94.0 FL) 93.2 MCH (27.0 - 31.0 PG) 31.6 H RDW (11.5 - 14.5 %) 15.9 H Plt Count (130 - 400 /CUMM) 119 L MPV (7.4 - 10.4 FL) 7.6 Gran % (42.2 - 75.2 %) 82.4 H Lymphocytes % (20.5 - 51.1 %) 5.7 L Monocytes % (1.7 - 9.3 %) 10.2 H Eosinophils % (0 - 5 %) 1.4 Basophils % (0.0 - 2.0 %) 0.3 Absolute Granulocytes (1.4 - 6.5 /CUMM) 5.2 Absolute Lymphocytes (1.2 - 3.4 /CUMM) 0.4 L Absolute Monocytes (0.10 - 0.60 /CUMM) 0.7 H Absolute Eosinophils (0.0 - 0.7 /CUMM) 0.1 Absolute Basophils (0.0 - 0.2 /CUMM) 0 PUBS MCHC (33.0 - 37.0 G/DL) 33.9 Urines Urine Color Cancelled Urine Clarity Cancelled Urine pH Cancelled Ur Specific Henderson Cancelled Urine Protein Cancelled Urine Ketones Cancelled Urine Nitrite Cancelled Urine Bilirubin Cancelled Urine Urobilinogen Cancelled Ur Leukocyte Esterase Cancelled Ur Microscopic Cancelled Urine RBC Cancelled Urine Hemoglobin Cancelled Ur Random Creatinine Cancelled Ur Random Sodium Cancelled Ur Random Potassium Cancelled Fraction Sodium Excret Cancelled Urine Glucose Cancelled 10/31 Chemistry Sodium (137 - 145 mmol/L) 129 L Cancelled Potassium (3.5 - 5.1 mmol/L) 3.5 Cancelled Chloride (98 - 107 mmol/L) 100 Cancelled Carbon Dioxide (22 - 30 mmol/L) 16 L Cancelled Anion Gap (5 - 16) 13 Cancelled BUN (9 - 20 mg/dL) 49 H Cancelled Creatinine (0.7 - 1.2 mg/dL) 3.9 H Cancelled Estimated GFR (>60 ml/min) 16 L BUN/Creatinine Ratio (7 - 25 %) 12.6 Cancelled Phosphorus (2.5 - 4.5 mg/dL) 6.9 H Magnesium (1.6 - 2.3 mg/dL) Cancelled 1.6 Cancelled Total Bilirubin (0.2 - 1.3 mg/dL) 0.4 Cancelled Direct Bilirubin (< 0.4 mg/dL) 0.3 Cancelled AST (17 - 59 U/L) 17 Cancelled ALT (21 - 72 U/L) 31 Cancelled Alkaline Phosphatase (< 127 U/L) 46 Cancelled Troponin I (<0.11 ng/ml) 0.05 Total Protein (6.3 - 8.2 g/dL) 4.8 L Cancelled Albumin (3.5 - 5.0 g/dL) 2.7 L Cancelled Hematology CBC w Diff NO MAN DIFF REQ WBC (4.8 - 10.8 /CUMM) 6.5 RBC (4.70 - 6.10 /CUMM) 1.98 L Hgb (14.0 - 18.0 G/DL) 6.4 *L Hct (42 - 52 %) 18.3 *L MCV (80.0 - 94.0 FL) 92.7 MCH (27.0 - 31.0 PG) 32.3 H RDW (11.5 - 14.5 %) 15.7 H Plt Count (130 - 400 /CUMM) 148 MPV (7.4 - 10.4 FL) 7.6 Gran % (42.2 - 75.2 %) 82.4 H Lymphocytes % (20.5 - 51.1 %) 6.9 L Monocytes % (1.7 - 9.3 %) 10.0 H Eosinophils % (0 - 5 %) 0.4 Basophils % (0.0 - 2.0 %) 0.3 Absolute Granulocytes (1.4 - 6.5 /CUMM) 5.4 Absolute Lymphocytes (1.2 - 3.4 /CUMM) 0.4 L Absolute Monocytes (0.10 - 0.60 /CUMM) 0.7 H Absolute Eosinophils (0.0 - 0.7 /CUMM) 0 Absolute Basophils (0.0 - 0.2 /CUMM) 0 PUBS MCHC (33.0 - 37.0 G/DL) 34.9 05/08 0030 Hematology CBC w Diff MAN DIFF ORDERED WBC (4.8 - 10.8 /CUMM) 8.8 RBC (4.70 - 6.10 /CUMM) 2.78 L Hgb (14.0 - 18.0 G/DL) 8.8 L Hct (42 - 52 %) 25.9 L MCV (80.0 - 94.0 FL) 93.2 MCH (27.0 - 31.0 PG) 31.7 H RDW (11.5 - 14.5 %) 15.3 H Plt Count (130 - 400 /CUMM) 207 MPV (7.4 - 10.4 FL) 7.8 Gran % (42.2 - 75.2 %) 91.4 H Lymphocytes % (20.5 - 51.1 %) 2.7 L Monocytes % (1.7 - 9.3 %) 5.9 Eosinophils % (0 - 5 %) 0 Basophils % (0.0 - 2.0 %) 0 L Absolute Granulocytes (1.4 - 6.5 /CUMM) 8.1 H Absolute Lymphocytes (1.2 - 3.4 /CUMM) 0.2 L Absolute Monocytes (0.10 - 0.60 /CUMM) 0.5 Absolute Eosinophils (0.0 - 0.7 /CUMM) 0 Absolute Basophils (0.0 - 0.2 /CUMM) 0 Platelet Estimate (ADEQUATE) ADEQUATE Polychromasia 1+ Ovalocytes 1+ PUBS MCHC (33.0 - 37.0 G/DL) 34.0
[2016-11-02 18:43] LABS: ABSOLUTE BASOPHIL COUNT 0 /CUMM (0.0-0.2); ABSOLUTE EOSINOPHIL COUNT 0.1 /CUMM (0.0-0.7); ABSOLUTE GRANULOCYTE CT 3.8 /CUMM (1.4-6.5); ABSOLUTE LYMPH COUNT 0.2 /CUMM (1.2-3.4); ABSOLUTE MONOCYTE COUNT 0.4 /CUMM (0.10-0.60); BASOPHIL % 0 % (0.0-2.0); EOSINOPHIL % 2.7 % (0-5); HEMATOCRIT 24.4 % (42-52); MEAN CORPUSCULAR VOLUME 91.2 FL (80.0-94.0); MEAN PLATELET VOLUME 7.4 FL (7.4-10.4); PLATELET COUNT 71 /CUMM (130-400); RBC DISTRIBUTION WIDTH 15.9 % (11.5-14.5); RED BLOOD CELL CT 2.67 /CUMM (4.70-6.10); WHITE BLOOD CELL COUNT 4.5 /CUMM (4.8-10.8)
[2016-11-02 18:44] LABS: GRANULOCYTE % 84.1 % (42.2-75.2)
[2016-11-03] VITALS (10 sets, daily range): BP systolic 122–153; BP diastolic 63–89
[2016-11-03 05:46] LABS: ABSOLUTE BASOPHIL COUNT 0 /CUMM (0.0-0.2); ABSOLUTE EOSINOPHIL COUNT 0.1 /CUMM (0.0-0.7); ABSOLUTE GRANULOCYTE CT 3.4 /CUMM (1.4-6.5); ABSOLUTE LYMPH COUNT 0.2 /CUMM (1.2-3.4); ABSOLUTE MONOCYTE COUNT 0.4 /CUMM (0.10-0.60); BASOPHIL % 0.2 % (0.0-2.0); EOSINOPHIL % 2.5 % (0-5); GRANULOCYTE % 81.3 % (42.2-75.2); HEMATOCRIT 24.1 % (42-52); MEAN CORPUSCULAR HGB 31.2 PG (27.0-31.0); MEAN CORPUSCULAR HGB CONC 34.2 G/DL (33.0-37.0); MEAN PLATELET VOLUME 7.4 FL (7.4-10.4); PLATELET COUNT 74 /CUMM (130-400); RED BLOOD CELL CT 2.65 /CUMM (4.70-6.10); WHITE BLOOD CELL COUNT 4.2 /CUMM (4.8-10.8)
--- NOTE | 2016-11-03 07:45 | PN- Urology ---
Subjective Subjective: No acute distress Objective Vital Signs and I&Os Vital Signs Date Time Temp Pulse Resp B/P B/P Pulse O2 O2 Flow FiO2 Mean Ox Delivery Rate 11/03 0600 77 19 134/71 11/030 99.3 76 18 135/73 11/03 0400 92 Nasal 3.0L Cannula 11/03 98.5 72 24 122/63 11/03 0000 98.5 72 24 122/63 93 Nasal 3.0L Cannula 11/03 0000 93 Nasal 3.0L Cannula 11/02 2240 96 Nasal 2.0L Cannula 11/03 1999 98.0 69 26 140/90 11/03 1999 92 Nasal 2.0L Cannula 11/02 1600 97 Nasal 2.0L Cannula 11/02 1600 98.1 64 24 118/70 95 Nasal 2.0L Cannula 11/02 1200 97 Nasal 2.0L Cannula 11/02 0846 94 Nasal 2.0L Cannula 11/02 0800 98 Nasal 2.0L Cannula 11/02 0800 97.2 72 31 116/70 98 Nasal 2.0L Cannula Intake & Output 11/03 0811/03 0000 11/02 1600 11/02 0800 11/02 0000 11/01 1600 Intake Total 960 1430 1300 1218 1420 Output Total 1200 6932 702 4419 2200 Balance -240 230 650 -1432 -780 Intake, Blood 350 360 640 Product Intake, IV 600 660 700 558 300 Intake, Oral 360 420 600 300 480 Number 0 1 Bowel Movements Output, Urine 1200 2047 131 7021 2200 Abd: soft and non tender Genitalia: 3-way king in place. CBI running at slow rate. Urine clear. Some penile and scrotal edema Laboratory Tests 11/03 11/02 6774 1815 Chemistry Sodium (137 - 145 mmol/L) 136 L Potassium (3.5 - 5.1 mmol/L) 4.0 Chloride (98 - 107 mmol/L) 112 H Carbon Dioxide (22 - 30 mmol/L) 15 L Anion Gap (5 - 16) 9 BUN (9 - 20 mg/dL) 51 H Creatinine (0.7 - 1.2 mg/dL) 3.5 H Estimated GFR (>60 ml/min) 18 L Glucose (65 - 99 mg/dL) 116 H Calcium (8.4 - 10.2 mg/dL) 7.0 L Phosphorus (2.5 - 4.5 mg/dL) 6.1 H Magnesium (1.6 - 2.3 mg/dL) 1.7 Total Bilirubin (0.2 - 1.3 mg/dL) 0.3 AST (17 - 59 U/L) 17 ALT (21 - 72 U/L) 28 Albumin (3.5 - 5.0 g/dL) 2.2 L Hematology CBC w Diff NO MAN DIFF REQ NO MAN DIFF REQ WBC (4.8 - 10.8 /CUMM) 4.2 L 4.5 L RBC (4.70 - 6.10 /CUMM) 2.65 L 2.67 L Hgb (14.0 - 18.0 G/DL) 8.2 L 8.3 L Hct (42 - 52 %) 24.1 L 24.4 L MCV (80.0 - 94.0 FL) 91.0 91.2 MCH (27.0 - 31.0 PG) 31.2 H 31.0 RDW (11.5 - 14.5 %) 16.0 H 15.9 H Plt Count (130 - 400 /CUMM) 74 L 71 L MPV (7.4 - 10.4 FL) 7.4 7.4 Gran % (42.2 - 75.2 %) 81.3 H 84.1 H Lymphocytes % (20.5 - 51.1 %) 5.5 L 3.8 L Monocytes % (1.7 - 9.3 %) 10.5 H 9.4 H Eosinophils % (0 - 5 %) 2.5 2.7 Basophils % (0.0 - 2.0 %) 0.2 0 L Absolute Granulocytes (1.4 - 6.5 /CUMM) 3.4 3.8 Absolute Lymphocytes (1.2 - 3.4 /CUMM) 0.2 L 0.2 L Absolute Monocytes (0.10 - 0.60 /CUMM) 0.4 0.4 Absolute Eosinophils (0.0 - 0.7 /CUMM) 0.1 0.1 Absolute Basophils (0.0 - 0.2 /CUMM) 0 0 PUBS MCHC (33.0 - 37.0 G/DL) 34.2 34.0 05/10 1307 Hematology CBC w Diff NO MAN DIFF REQ WBC (4.8 - 10.8 /CUMM) 4.3 L RBC (4.70 - 6.10 /CUMM) 2.37 L Hgb (14.0 - 18.0 G/DL) 7.4 *L Hct (42 - 52 %) 21.6 L MCV (80.0 - 94.0 FL) 91.3 MCH (27.0 - 31.0 PG) 31.4 H RDW (11.5 - 14.5 %) 15.8 H Plt Count (130 - 400 /CUMM) 71 L MPV (7.4 - 10.4 FL) 6.8 L Gran % (42.2 - 75.2 %) 81.8 H Lymphocytes % (20.5 - 51.1 %) 5.1 L Monocytes % (1.7 - 9.3 %) 10.4 H Eosinophils % (0 - 5 %) 2.6 Basophils % (0.0 - 2.0 %) 0.1 Absolute Granulocytes (1.4 - 6.5 /CUMM) 3.5 Absolute Lymphocytes (1.2 - 3.4 /CUMM) 0.2 L Absolute Monocytes (0.10 - 0.60 /CUMM) 0.4 Absolute Eosinophils (0.0 - 0.7 /CUMM) 0.1 Absolute Basophils (0.0 - 0.2 /CUMM) 0 PUBS MCHC (33.0 - 37.0 G/DL) 34.4 Assessment/Plan Assessment/Plan Imp: s/p extensive clot evacuation from bladder. Bleeding likely due to radiation cystitis Hx of prostate ca treated with radiation YVROSE improving Genital edema Plan: May turn off CBI. Leave king in. Restart CBI if urine starts to get bloody Would leave king in thru weekend before giving voiding trial Scrotal elevation
--- NOTE | 2016-11-03 08:31 | PN- Resident CRCU ---
See Addendum Subjective HPI/CRCU Issues: Follow up: -Acute blood loss anemia secondary to hemorrhagic radiation cystitis -Hematuria -Prostate cancer status post radiation therapy -YVROSE on top on CKD -DM, HTN, HLP -Alcohol withdrawal -COPD not on home oxygen -Chronic pain syndrome Patient was seen and examined this morning, he is alert oriented 3, he reported sharp pain 7/10 of right leg and foot Patient denied any chest pain, palpitation however he reported cough and yellow sputum that started 3 days ago, he is on 3 L oxygen saturating 93%, reported wheezing. Denied fever or chills. Patient denied any dizziness, diaphoresis, nausea or vomiting. Denied any abdominal pain, no bowel movement, last bowel movement 10/30/[address], urine is pinkish in color 24 Hour Events: Temperature 99.3, MAXIMUM TEMPERATURE 99.3 Heart rate lowest 64, highest 95 atrial fibrillation Blood pressure lowest 97/55, highest 140/78 Respiratory rate 19, on 3 L oxygen saturating 93% Has normal saline running at 75% Intake 3690, output 3050 No overnight events reported by the nurse of the patient. Objective Vital Signs & I&O Last 8 Hrs of Vitals and I&O: Intake & Output 11/03 1600 Intake Total Output Total Balance Patient 95.254 kg Weight Exam General Appearance: alert Current Medications: Current Medications Sig/Avery Start time Last Medication Dose Route Stop Time Status Admin Acetaminophen 1,000 MG Q6H PRN 10/31 1500 AC 11/01 N/A 1 UNIT IV 0651 Albuterol Sulfate 3 ML Q4P PRN 11/01 2300 AC 11/03 INH 0931 Albuterol Sulfate 2 PUF Q4-6 PRN PRN 10/30 0930 AC 11/03 INH 0057 Atorvastatin Calcium 20 MG DAILY 10/30 1000 AC 11/03 PO 0945 Budesonide/ 2 PUF BID 10/30 1000 AC 11/03 Formoterol Fumarate INH 0948 Calcium Gluconate 500 MG ONCE ONE 11/02 1445 DC 11/02 PO 11/02 1446 1727 Ceftriaxone Sodium 1,000 MG DAILY 11/01 0815 AC 11/03 IV 0944 Chlordiazepoxide HCl 10 MG BID 11/02 2200 AC 11/03 PO 0945 Chlordiazepoxide HCl 10 MG TID 11/01 1600 DC 11/02 PO 0926 Duloxetine HCl 60 MG DAILY 10/30 1000 AC 11/03 PO 0945 Folic Acid 1 MG DAILY 10/30 1000 AC 11/03 PO 0945 Furosemide 40 MG ONCE ONE 11/03 1100 DC 11/03 IV PUSH 11/03 1101 1053 Gabapentin 600 MG TID 10/30 1000 AC 11/03 PO 0945 Guaifenesin 10 ML .STK-MED ONE 11/02 1336 DC PO 11/02 1337 Insulin Aspart 0 TIDAC 10/31 1200 AC 11/03 SC 1220 Insulin Detemir 14 UNITS DAILY 10/30 1000 AC 11/03 SC 0945 Lorazepam See Dose Q1P PRN 10/30 1400 AC 11/03 Insts (1) IV 0052 Magnesium Hydroxide 30 ML ONE PRN 11/01 1545 AC PO Magnesium Sulfate 1 GM ONCE ONE 11/03 0700 DC 11/03 Dextrose/Water 100 ML IV 11/03 1059 0747 Magnesium Sulfate 1 GM ONCE ONE 11/02 1330 DC 11/02 Dextrose/Water 100 ML IV 11/02 1729 1327 Metoprolol Succinate 25 MG DAILY 11/03 1000 AC 11/03 PO 0947 Metoprolol Succinate 25 MG DAILY 10/30 1000 DC 11/02 PO 0926 Morphine Sulfate 4 MG Q6-PRN PRN 11/01 1600 AC 11/03 IV 1139 Multivitamins 1 TAB DAILY 10/30 1000 AC 11/03 PO 0945 Polyethylene Glycol 17 GM DAILY 11/01 1544 AC 11/03 PO 0944 Senna/Docusate Sodium 1 TAB BID PRN 11/01 1545 AC 11/03 PO 0945 Sodium Bicarbonate 50 MEQ Q13H 11/03 0745 DC Sodium Chloride 1,000 ML IV Sodium Bicarbonate 650 MG TID 11/02 1822 AC 11/03 PO 0945 Sodium Chloride 1,000 ML Q13H 11/01 1130 DC 11/03 IV 0300 Tamsulosin HCl 0.4 MG DAILY 10/30 1000 AC 11/03 PO 0947 Tramadol HCl 50 MG Q6P PRN 11/01 0115 AC 11/03 PO 0945 Dose Instructions: (1)Lorazepam: See admin criteria Impression/Plan Impression/Problem List Impression: Mr. Ling 66-year-old male with extensive past medical history, was admitted for alcohol detox and was to found hematuria and dysuria. Patient had drop in hemoglobin 5.5 with hematuria with clots and was transferred to ICU for close monitoring. Problem list -Prostate cancer s/p radiation -Hepatitis C s/p interferon treatment -Alcohol abuse and opiate dependence -Diabetes mellitus -Hypertension and hyperlipidemia -COPD -Osteomyelitis s/p left below the knee amputation in May 2016 -Atrial fibrillation on Elequis -Mitral valve prolapse status post repair Respiratory -History of COPD not on home oxygen -Continue oxygen supplementation 3L, keep saturation above 92% -TRC, nebulizers Infectious disease -Urine culture positive for Escherichia coli -Discontinue ceftriaxone Day#4 -Start ciprofloxacin oral to finish course of 7 days -Monitor fever, leukocytosis -Upper respiratory and GI cultures are negative -Continue Flomax 0.4 mg daily Cardiovascular -History of atrial fibrillation on elequis -History of hypertension and hyperlipidemia -Continue metoprolol 25 mg daily -Continue atorvastatin 20 mg daily -Hold aspirin and Eliquis for now given active bleeding Hematology -Anemia of acute blood loss -H&H initially was 5.5/16.3 -Difficulty obtaining blood that cross and match patient's blood given antibodies -Patient received 5 units of blood, H&H 8.2/24.1 -Hemoglobin more than 8 -Patient has history of prostate cancer status post radiation, hemorrhagic radiation cystitis is believed to be the cause of active bleeding anemia -Recommendations regarding the possibility of hyperbaric oxygen for hemorrhagic radiation cystitis -Continue Kaiser catheter, urine color is light pink, dicontinue CBI per urology recommendation -Recommendation to continue Kaiser catheter during weekend, possible voiding trial after weekend -Scrotal elevation Metabolic -History of diabetes -Continue Accu-Chek TIDAC, HS -NovoLog scale -Levemir 14 units daily Alimentary -Consistent carbohydrate 3 -Folic acid, thiamine, multivitamin Neurological -History of alcohol abuse and opioid dependence -Continue Librium to 10 mg twice a day -Lorazepam CIWA score -Gabapentin 600 mg daily -Cymbalta 60 mg daily DVT prophylaxis ALPS Code FULL Consultation urology, cardiology Problem List: 1. Diabetes mellitus 2. CKD (chronic kidney disease) 3. History of prostate cancer 4. Alcohol withdrawal delirium 5. Urinary tract infection with hematuria Pain Ratin Pain Location: right leg and foot Pain Goal: Pain 4 or less Tomorrow's Labs & Rationales: CBC ICU bundle Plan DVT/Prophylaxis: mechanical
--- NOTE | 2016-11-03 09:27 | PN- CRCU ---
Subjective HPI/Critical Care Issues: The patient is awake and alert. He reports feeling slightly short of breath. He appears more dyspneic at rest as well. He continues on CBI with mildly blood tinged urine. His tmax was 99.3. The patient offers no new complaints. Objective Current Medications: Current Medications Sig/Avery Start time Last Medication Dose Route Stop Time Status Admin Acetaminophen 1,000 MG Q6H PRN 10/31 1500 AC 11/01 N/A 1 UNIT IV 0651 Albuterol Sulfate 3 ML Q4P PRN 11/01 2300 AC 11/02 INH 0845 Albuterol Sulfate 2 PUF Q4-6 PRN PRN 10/30 0930 AC 11/03 INH 0057 Atorvastatin Calcium 20 MG DAILY 10/30 1000 AC 11/02 PO 09 Budesonide/ 2 PUF BID 10/30 1000 AC 11/02 Formoterol Fumarate INH 2112 Calcium Gluconate 500 MG ONCE ONE 11/02 1445 DC 11/02 PO 11/02 1446 1727 Ceftriaxone Sodium 1,000 MG DAILY 11/01 0815 AC 11/02 IV 0925 Chlordiazepoxide HCl 10 MG BID 11/02 2200 AC 11/02 PO 211 Chlordiazepoxide HCl 10 MG TID 11/01 1600 DC 11/02 PO 0926 Duloxetine HCl 60 MG DAILY 10/30 1000 AC 11/02 PO 09 Folic Acid 1 MG DAILY 10/30 1000 AC 11/02 PO 0926 Gabapentin 600 MG TID 10/30 1000 AC 11/02 PO 211 Guaifenesin 10 ML .STK-MED ONE 11/02 1336 DC PO 11/02 1337 Insulin Aspart 0 TIDAC 10/31 1200 AC 11/02 SC 1133 Insulin Detemir 14 UNITS DAILY 10/30 1000 AC 11/02 SC 0925 Lorazepam See Dose Q1P PRN 10/30 1400 AC 11/03 Insts (1) IV 0052 Magnesium Hydroxide 30 ML ONE PRN 11/01 1545 AC PO Magnesium Sulfate 1 GM ONCE ONE 11/03 0700 AC 11/03 Dextrose/Water 100 ML IV 11/03 1059 0747 Magnesium Sulfate 1 GM ONCE ONE 11/02 1330 DC 05 Dextrose/Water 100 ML IV 11/02 1729 1327 Metoprolol Succinate 25 MG DAILY 11/03 1000 AC PO Metoprolol Succinate 25 MG DAILY 10/30 1000 DC 11/02 PO 09 Morphine Sulfate 4 MG Q6-PRN PRN 11/01 1600 AC 11/03 IV 0258 Multivitamins 1 TAB DAILY 10/30 1000 AC 11/02 PO 09 Polyethylene Glycol 17 GM DAILY 11/01 1544 AC 11/02 PO 926 Senna/Docusate Sodium 1 TAB BID PRN 11/01 1545 AC 11/02 PO 09 Sodium Bicarbonate 50 MEQ Q13H 11/03 0745 AC Sodium Chloride 1,000 ML IV Sodium Bicarbonate 650 MG TID 11/02 1822 AC 11/02 PO 2112 Sodium Chloride 1,000 ML Q13H 11/01 1130 DC 11/03 IV 0300 Tamsulosin HCl 0.4 MG DAILY 10/30 1000 AC 11/02 PO 926 Tramadol HCl 50 MG Q6P PRN 11/01 0115 AC 11/01 PO 0205 Dose Instructions: (1)Lorazepam: See admin criteria Vital Signs & I&O Last 24 Hrs of Vitals and I&O: Vital Signs Date Time Temp Pulse Resp B/P B/P Pulse O2 O2 Flow FiO2 Mean Ox Delivery Rate 11/03 0600 77 19 134/71 11/03 0400 99.3 76 18 135/73 11/03 0400 92 Nasal 3.0L Cannula 11/03 0000 98.5 72 24 122/63 11/03 0000 98.5 72 24 122/63 93 Nasal 3.0L Cannula 11/03 0000 93 Nasal 3.0L Cannula 11/02 2240 96 Nasal 2.0L Cannula 11/03 1999 98.0 69 26 140/90 11/02 2000 92 Nasal 2.0L Cannula 11/02 1600 97 Nasal 2.0L Cannula 11/02 1600 98.1 64 24 118/70 95 Nasal 2.0L Cannula 11/02 1200 97 Nasal 2.0L Cannula Intake & Output 11/03 1600 11/03 0800 11/03 0000 Intake Total 960 1430 Output Total 1200 1200 Balance -240 230 Intake, Blood 350 Product Intake, IV 600 660 Intake, Oral 360 420 Number 0 1 Bowel Movements Output, Urine 1200 1200 Physical Exam General Appearance: no apparent distress, alert, awake, comfortable Head: atraumatic Ears, Nose, Throat: pale mucous membranes Respiratory: increased use of accessory muscles, wheezes and crackles heard throughout lung matias Cardiovascular: irregularly irregular Gastrointestinal: normal bowel sounds, soft, non-tender Back: normal inspection, normal range of motion Extremities: RUE Picc line, no erythema, LLE BKA Results Last 24 Hrs of Lab Results: Laboratory Tests 11/03/16 0455: Anion Gap 9, Estimated GFR 18 L, Glucose 116 H, Calcium 7.0 L, Phosphorus 6.1 H, Magnesium 1.7, Total Bilirubin 0.3, AST 17, ALT 28, Albumin 2.2 L, CBC w Diff NO MAN DIFF REQ, RBC 2.65 L, MCV 91.0, MCH 31.2 H, RDW 16.0 H, MPV 7.4, Gran % 81.3 H, Lymphocytes % 5.5 L, Monocytes % 10.5 H, Eosinophils % 2.5, Basophils % 0.2, Absolute Granulocytes 3.4, Absolute Lymphocytes 0.2 L, Absolute Monocytes 0.4, Absolute Eosinophils 0.1, Absolute Basophils 0, PUBS MCHC 34.2 11/02/16 1815: CBC w Diff NO MAN DIFF REQ, RBC 2.67 L, MCV 91.2, MCH 31.0, RDW 15.9 H, MPV 7.4, Gran % 84.1 H, Lymphocytes % 3.8 L, Monocytes % 9.4 H, Eosinophils % 2.7 , Basophils % 0 L, Absolute Granulocytes 3.8, Absolute Lymphocytes 0.2 L, Absolute Monocytes 0.4, Absolute Eosinophils 0.1, Absolute Basophils 0, PUBS MCHC 34.0 11/02/16 1307: CBC w Diff NO MAN DIFF REQ, RBC 2.37 L, MCV 91.3, MCH 31.4 H, RDW 15.8 H, MPV 6.8 L, Gran % 81.8 H, Lymphocytes % 5.1 L, Monocytes % 10.4 H, Eosinophils % 2.6, Basophils % 0.1, Absolute Granulocytes 3.5, Absolute Lymphocytes 0.2 L, Absolute Monocytes 0.4, Absolute Eosinophils 0.1, Absolute Basophils 0, PUBS MCHC 34.4 Impression/Plan Impression/Plan Impression/Plan: 1. 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 2. Acute kidney injury, superimposed on chronic disease. 3. EtOH withdrawal. 4. Insulin-dependent diabetes. 5. UTI, on ceftriaxone. 6. Treat in bud opacities left lower lobe, nonspecific. No evidence of active pneumonia. 7. Hypertension and hyperlipidemia. 8. History of atrial fibrillation, status post ablation and maze procedure, currently in AF on anticoagulation as outpatient. 9. Mitral valve prolapse status post repair. 10. Multiple comorbidities including bladder cancer status post radiation therapy, autoimmune hemolytic anemia, Waldenstroms macroglobulinemia, history of endocarditis, and hx of hepatitis C. 11. Obstructive lung disease. 12. Increased respiratory distress, likely related to fluid overload. Recommendations: * Check a portable CXR and ABG now. * Stop IV fluids. * TRC for neb treatments. * If the patient's chest x-ray shows volume overload, will give IV Lasix and discuss with nephrology. * Provide electrolyte repletion as necessary. * Follow up urology's recommendations. * Changed to oral Cipro, complete a total of 7 days of antibiotics. * EtOH pathway and treatment. Monitor for withdrawal seizures. * Continue multivitamin, thiamine and folate. * Continue pain pathway - his will need to be adjusted as the patient's pain score is 8. * Continue insulin sliding scale. * Continue metoprolol, will follow up cardiology's recommendations. * Continue nebs/TRC/inhaler regimen. * Alps for DVT prophylaxis. No heparin due to bleeding. * PICC line still necessary for poor access. * Appreciate all consultants input.
--- NOTE | 2016-11-03 09:36 | RADIOLOGY REPORT ---
EXAMINATION: XR PORTABLE CHEST CLINICAL INFORMATION: Shortness of breath COMPARISON: 11/01/2016 TECHNIQUE: Portable frontal view of the chest was obtained. FINDINGS: Right PICC tip lies at the level of the cavoatrial junction. Sternal wires and valve prosthesis are noted. The lungs are hypoinflated, which limits assessment of the lung bases. No definite consolidation is seen. No appreciable pneumothorax, significant pleural effusion, or overt pulmonary edema. The cardiac silhouette remains enlarged. No acute osseous findings are seen. IMPRESSION: Low lung volumes, without definite acute findings. Cardiac silhouette remains enlarged.
--- NOTE | 2016-11-03 15:21 | PN- Nephrology ---
Assessment/Plan Assessment: 1. CKD stage III likely multifactorial including hepatitis C associated chronic GN, diabetes mellitus and hypertension 2. Acute kidney injury - likely a combination of obstructive disease and acute tubular necrosis 3. Metabolic acidosis with normal anion gap 4. Interstitial cystitis related to previous radiation therapy 5. COPD with bronchospasm; ?superimposed chf? 6. Multiple comorbidities as noted Suggestion: 1. Okay to have proceeded with trial of IV Lasix - as we discussed 2. Continue p.o. sodium bicarbonate 3. Monitor chemistries daily Subjective Subjective: Patient was a little more short of breath this morning although he is back to baseline now which is chronic, mild shortness of breath and wheezing. Creatinine down to 3.5, bicarbonate up to 15. Objective Vital Signs and I&Os Vital Signs Date Time Temp Pulse Resp B/P B/P Pulse O2 O2 Flow FiO2 Mean Ox Delivery Rate 11/03 1400 78 20 153/75 11/03 1200 Nasal 3.0L Cannula 11/03 1200 98.0 89 22 142/80 11/03 1200 98.0 89 22 142/80 96 Nasal 3.0L Cannula 11/03 1000 84 22 136/82 11/03 0947 77 132/78 11/03 0947 77 132/78 11/03 0934 95 Nasal 2.0L Cannula 11/03 0800 Nasal 3.0L Cannula 11/03 0800 98.1 80 22 130/70 11/03 0800 98.1 80 22 130/70 94 Nasal 2.0L Cannula 11/03 0600 77 19 134/71 11/03 0400 99.3 76 18 135/73 11/03 0400 92 Nasal 3.0L Cannula 11/03 0000 98.5 72 24 122/63 11/03 0000 98.5 72 24 122/63 93 Nasal 3.0L Cannula 11/03 0000 93 Nasal 3.0L Cannula 11/02 2240 96 Nasal 2.0L Cannula 11/03 1999 98.0 69 26 140/90 11/03 1999 92 Nasal 2.0L Cannula 11/02 1600 97 Nasal 2.0L Cannula 11/02 1600 98.1 64 24 118/70 95 Nasal 2.0L Cannula Intake & Output 11/03 1600 11/03 0400 11/02 1600 11/02 0400 11/01 1600 11/01 0400 Intake Total 2299 1430 2518 1420 1840 Output Total 5300 1200 3300 2200 500 1200 Balance -3001 230 -782 -780 1340 -1200 Intake, Blood 350 360 640 Product Intake, IV 299 799 1903 300 1600 Intake, Oral 1320 420 900 480 240 Number 1 1 Bowel Movements Output, Urine 5300 1200 3300 2200 500 1200 Patient 210 lb Weight Physical Exam: General: Well-developed, obese white male in NAD Skin: No rash or jaundice HEENT: Conjunctivae pale, sclerae anicteric, mucous membranes dry Neck: Without masses or thyromegaly, no supraclavicular or cervical adenopathy Chest: Wheezes and rhonchi bilaterally Heart: Irregular rhythm without S3 or rub Abdomen: Obese, soft, nontender with an asymmetric longitudinal surgical scar below the umbilicus, ventral hernia Extremities: Trace edema. 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 No focal findings, no asterixis or myoclonus Current Medications: Current Medications Sig/Avery Start time Last Medication Dose Route Stop Time Status Admin Acetaminophen 1,000 MG Q6H PRN 10/31 1500 AC 11/01 N/A 1 UNIT IV 0651 Albuterol Sulfate 3 ML Q4P PRN 11/01 2300 AC 11/03 INH 0931 Albuterol Sulfate 2 PUF Q4-6 PRN PRN 10/30 0930 AC 11/03 INH 0057 Atorvastatin Calcium 20 MG DAILY 10/30 1000 AC 11/03 PO 0945 Budesonide/ 2 PUF BID 10/30 1000 AC 11/03 Formoterol Fumarate INH 0948 Ceftriaxone Sodium 1,000 MG DAILY 11/01 0815 DC 11/03 IV 0944 Chlordiazepoxide HCl 10 MG BID 11/02 2200 AC 11/03 PO 0945 Ciprofloxacin 500 MG DAILY 11/04 1000 AC PO 11/06 2300 Duloxetine HCl 60 MG DAILY 10/30 1000 AC 11/03 PO 0945 Folic Acid 1 MG DAILY 10/30 1000 AC 11/03 PO 0945 Furosemide 40 MG ONCE ONE 11/03 1100 DC 11/03 IV PUSH 11/03 1101 1053 Gabapentin 600 MG TID 10/30 1000 AC 11/03 PO 0945 Insulin Aspart 0 TIDAC 10/31 1200 AC 11/03 SC 1220 Insulin Detemir 14 UNITS DAILY 10/30 1000 AC 11/03 SC 0945 Lorazepam See Dose Q1P PRN 10/30 1400 AC 11/03 Insts (1) IV 0052 Magnesium Hydroxide 30 ML ONE PRN 11/01 1545 AC PO Magnesium Sulfate 1 GM ONCE ONE 11/03 0700 DC 11/03 Dextrose/Water 100 ML IV 11/03 1059 0747 Magnesium Sulfate 1 GM ONCE ONE 11/02 1330 DC 11/02 Dextrose/Water 100 ML IV 11/02 1729 1327 Metoprolol Succinate 25 MG DAILY 11/03 1000 AC 11/03 PO 0947 Morphine Sulfate 4 MG Q6-PRN PRN 11/01 1600 AC 11/03 IV 1139 Multivitamins 1 TAB DAILY 10/30 1000 AC 11/03 PO 0945 Polyethylene Glycol 17 GM DAILY 11/01 1544 AC 11/03 PO 0944 Senna/Docusate Sodium 1 TAB BID PRN 11/01 1545 AC 11/03 PO 0945 Sodium Bicarbonate 50 MEQ Q13H 11/03 0745 DC Sodium Chloride 1,000 ML IV Sodium Bicarbonate 650 MG TID 11/02 1822 AC 11/03 PO 0945 Sodium Chloride 1,000 ML Q13H 11/01 1130 DC 11/03 IV 0300 Tamsulosin HCl 0.4 MG DAILY 10/30 1000 AC 11/03 PO 0947 Tramadol HCl 50 MG Q6P PRN 11/01 0115 AC 11/03 PO 0945 Dose Instructions: (1)Lorazepam: See admin criteria Results Pertinent Lab Results: Laboratory Tests 11/03 11/03 1015 0455 Blood Gas pH (7.35 - 7.45 PH) 7.33 L pCO2 (35 - 45 TORR) 28 L pO2 (80 - 100 TORR) 64 L HCO3 (21 - 28 MEQ/L) 14 L ABG O2 Sat (Measured) (>96.0 %) 92.0 L P-50 (Temp Corrected) N Carboxyhemoglobin (1.5 - 5.0 %) 0.3 L O2 Concentration % 2L O2 Delivery Method N/C Chemistry Sodium (137 - 145 mmol/L) 136 L Potassium (3.5 - 5.1 mmol/L) 4.0 Chloride (98 - 107 mmol/L) 112 H Carbon Dioxide (22 - 30 mmol/L) 15 L Anion Gap (5 - 16) 9 BUN (9 - 20 mg/dL) 51 H Creatinine (0.7 - 1.2 mg/dL) 3.5 H Estimated GFR (>60 ml/min) 18 L Glucose (65 - 99 mg/dL) 116 H Calcium (8.4 - 10.2 mg/dL) 7.0 L Phosphorus (2.5 - 4.5 mg/dL) 6.1 H Magnesium (1.6 - 2.3 mg/dL) 1.7 Total Bilirubin (0.2 - 1.3 mg/dL) 0.3 AST (17 - 59 U/L) 17 ALT (21 - 72 U/L) 28 Albumin (3.5 - 5.0 g/dL) 2.2 L Hematology CBC w Diff NO MAN DIFF REQ WBC (4.8 - 10.8 /CUMM) 4.2 L RBC (4.70 - 6.10 /CUMM) 2.65 L Hgb (14.0 - 18.0 G/DL) 8.2 L Hct (42 - 52 %) 24.1 L MCV (80.0 - 94.0 FL) 91.0 MCH (27.0 - 31.0 PG) 31.2 H RDW (11.5 - 14.5 %) 16.0 H Plt Count (130 - 400 /CUMM) 74 L MPV (7.4 - 10.4 FL) 7.4 Gran % (42.2 - 75.2 %) 81.3 H Lymphocytes % (20.5 - 51.1 %) 5.5 L Monocytes % (1.7 - 9.3 %) 10.5 H Eosinophils % (0 - 5 %) 2.5 Basophils % (0.0 - 2.0 %) 0.2 Absolute Granulocytes (1.4 - 6.5 /CUMM) 3.4 Absolute Lymphocytes (1.2 - 3.4 /CUMM) 0.2 L Absolute Monocytes (0.10 - 0.60 /CUMM) 0.4 Absolute Eosinophils (0.0 - 0.7 /CUMM) 0.1 Absolute Basophils (0.0 - 0.2 /CUMM) 0 PUBS MCHC (33.0 - 37.0 G/DL) 34.2 Miscellaneous Phlebotomy Draw Site RIGHT RADIAL 11/02 11/02 2293 8587 Hematology CBC w Diff NO MAN DIFF REQ NO MAN DIFF REQ WBC (4.8 - 10.8 /CUMM) 4.5 L 4.3 L RBC (4.70 - 6.10 /CUMM) 2.67 L 2.37 L Hgb (14.0 - 18.0 G/DL) 8.3 L 7.4 *L Hct (42 - 52 %) 24.4 L 21.6 L MCV (80.0 - 94.0 FL) 91.2 91.3 MCH (27.0 - 31.0 PG) 31.0 31.4 H RDW (11.5 - 14.5 %) 15.9 H 15.8 H Plt Count (130 - 400 /CUMM) 71 L 71 L MPV (7.4 - 10.4 FL) 7.4 6.8 L Gran % (42.2 - 75.2 %) 84.1 H 81.8 H Lymphocytes % (20.5 - 51.1 %) 3.8 L 5.1 L Monocytes % (1.7 - 9.3 %) 9.4 H 10.4 H Eosinophils % (0 - 5 %) 2.7 2.6 Basophils % (0.0 - 2.0 %) 0 L 0.1 Absolute Granulocytes (1.4 - 6.5 /CUMM) 3.8 3.5 Absolute Lymphocytes (1.2 - 3.4 /CUMM) 0.2 L 0.2 L Absolute Monocytes (0.10 - 0.60 /CUMM) 0.4 0.4 Absolute Eosinophils (0.0 - 0.7 /CUMM) 0.1 0.1 Absolute Basophils (0.0 - 0.2 /CUMM) 0 0 PUBS MCHC (33.0 - 37.0 G/DL) 34.0 34.4 11/0209 0420 2300 Chemistry Sodium (137 - 145 mmol/L) 136 L Potassium (3.5 - 5.1 mmol/L) 4.6 Chloride (98 - 107 mmol/L) 112 H Carbon Dioxide (22 - 30 mmol/L) 12 L Anion Gap (5 - 16) 11 BUN (9 - 20 mg/dL) 53 H Creatinine (0.7 - 1.2 mg/dL) 4.2 H Estimated GFR (>60 ml/min) 14 L Glucose (65 - 99 mg/dL) 139 H Calcium (8.4 - 10.2 mg/dL) 6.7 L Phosphorus (2.5 - 4.5 mg/dL) 7.7 H Magnesium (1.6 - 2.3 mg/dL) 1.6 Total Bilirubin (0.2 - 1.3 mg/dL) 0.3 AST (17 - 59 U/L) 15 L ALT (21 - 72 U/L) 29 Albumin (3.5 - 5.0 g/dL) 2.2 L Hematology CBC w Diff NO MAN DIFF REQ NO MAN DIFF REQ WBC (4.8 - 10.8 /CUMM) 5.1 6.6 RBC (4.70 - 6.10 /CUMM) 2.28 L 2.19 L Hgb (14.0 - 18.0 G/DL) 7.4 *L 7.0 *L Hct (42 - 52 %) 21.3 L 20.7 L MCV (80.0 - 94.0 FL) 93.4 94.5 H MCH (27.0 - 31.0 PG) 32.3 H 31.8 H RDW (11.5 - 14.5 %) 15.3 H 14.8 H Plt Count (130 - 400 /CUMM) 75 L 92 L MPV (7.4 - 10.4 FL) 7.4 7.3 L Gran % (42.2 - 75.2 %) 82.6 H 86.3 H Lymphocytes % (20.5 - 51.1 %) 4.9 L 4.0 L Monocytes % (1.7 - 9.3 %) 11.0 H 8.5 Eosinophils % (0 - 5 %) 1.4 1.2 Basophils % (0.0 - 2.0 %) 0.1 0 L Absolute Granulocytes (1.4 - 6.5 /CUMM) 4.2 5.7 Absolute Lymphocytes (1.2 - 3.4 /CUMM) 0.2 L 0.3 L Absolute Monocytes (0.10 - 0.60 /CUMM) 0.6 0.6 Absolute Eosinophils (0.0 - 0.7 /CUMM) 0.1 0.1 Absolute Basophils (0.0 - 0.2 /CUMM) 0 0 PUBS MCHC (33.0 - 37.0 G/DL) 34.6 33.7 11/01 1700 Chemistry Sodium (137 - 145 mmol/L) Cancelled 132 L Potassium (3.5 - 5.1 mmol/L) Cancelled 3.9 Chloride (98 - 107 mmol/L) Cancelled 105 Carbon Dioxide (22 - 30 mmol/L) Cancelled 14 L Anion Gap (5 - 16) Cancelled 14 BUN (9 - 20 mg/dL) Cancelled 54 H Creatinine (0.7 - 1.2 mg/dL) Cancelled 4.1 H Estimated GFR (>60 ml/min) 15 L Glucose (65 - 99 mg/dL) Cancelled 165 H Calcium (8.4 - 10.2 mg/dL) Cancelled 6.9 L Phosphorus (2.5 - 4.5 mg/dL) Cancelled 7.7 H Magnesium (1.6 - 2.3 mg/dL) Cancelled 1.6 Total Bilirubin (0.2 - 1.3 mg/dL) Cancelled 0.3 AST (17 - 59 U/L) Cancelled 18 ALT (21 - 72 U/L) Cancelled 30 Albumin (3.5 - 5.0 g/dL) Cancelled 2.8 L Hematology CBC w Diff Cancelled NO MAN DIFF REQ WBC (4.8 - 10.8 /CUMM) Cancelled 6.9 RBC (4.70 - 6.10 /CUMM) Cancelled 2.30 L Hgb (14.0 - 18.0 G/DL) Cancelled 7.3 *L Hct (42 - 52 %) Cancelled 21.5 L MCV (80.0 - 94.0 FL) Cancelled 93.3 MCH (27.0 - 31.0 PG) Cancelled 31.6 H RDW (11.5 - 14.5 %) Cancelled 15.2 H Plt Count (130 - 400 /CUMM) Cancelled 118 L MPV (7.4 - 10.4 FL) Cancelled 7.5 Gran % (42.2 - 75.2 %) 84.0 H Lymphocytes % (20.5 - 51.1 %) 5.6 L Monocytes % (1.7 - 9.3 %) 8.7 Eosinophils % (0 - 5 %) 1.7 Basophils % (0.0 - 2.0 %) 0 L Absolute Granulocytes (1.4 - 6.5 /CUMM) 5.8 Absolute Lymphocytes (1.2 - 3.4 /CUMM) 0.4 L Absolute Monocytes (0.10 - 0.60 /CUMM) 0.6 Absolute Eosinophils (0.0 - 0.7 /CUMM) 0.1 Absolute Basophils (0.0 - 0.2 /CUMM) 0 PUBS MCHC (33.0 - 37.0 G/DL) Cancelled 33.9 05 05/ 05 1220 1210 1210 Chemistry Sodium (137 - 145 mmol/L) 133 L Potassium (3.5 - 5.1 mmol/L) 3.3 L Chloride (98 - 107 mmol/L) 105 Carbon Dioxide (22 - 30 mmol/L) 15 L Anion Gap (5 - 16) 13 BUN (9 - 20 mg/dL) 53 H Creatinine (0.7 - 1.2 mg/dL) 4.1 H Estimated GFR (>60 ml/min) 15 L Glucose (65 - 99 mg/dL) 135 H Calcium (8.4 - 10.2 mg/dL) 6.9 L Phosphorus (2.5 - 4.5 mg/dL) 7.5 H Magnesium (1.6 - 2.3 mg/dL) 1.6 Total Bilirubin (0.2 - 1.3 mg/dL) 0.2 AST (17 - 59 U/L) 18 ALT (21 - 72 U/L) 28 Albumin (3.5 - 5.0 g/dL) 2.5 L Hematology CBC w Diff NO MAN DIFF REQ WBC (4.8 - 10.8 /CUMM) 4.8 RBC (4.70 - 6.10 /CUMM) 1.63 L Hgb (14.0 - 18.0 G/DL) 5.3 *L Hct (42 - 52 %) 15.2 *L MCV (80.0 - 94.0 FL) 93.4 MCH (27.0 - 31.0 PG) 32.4 H RDW (11.5 - 14.5 %) 15.7 H Plt Count (130 - 400 /CUMM) 110 L MPV (7.4 - 10.4 FL) 7.6 Gran % (42.2 - 75.2 %) 81.8 H Lymphocytes % (20.5 - 51.1 %) 7.5 L Monocytes % (1.7 - 9.3 %) 9.0 Eosinophils % (0 - 5 %) 1.6 Basophils % (0.0 - 2.0 %) 0.1 Absolute Granulocytes (1.4 - 6.5 /CUMM) 3.9 Absolute Lymphocytes (1.2 - 3.4 /CUMM) 0.4 L Absolute Monocytes (0.10 - 0.60 /CUMM) 0.4 Absolute Eosinophils (0.0 - 0.7 /CUMM) 0.1 Absolute Basophils (0.0 - 0.2 /CUMM) 0 PUBS MCHC (33.0 - 37.0 G/DL) 34.7 Urines Urine Color Cancelled Urine Clarity Cancelled Urine pH Cancelled Ur Specific Dunbar Cancelled Urine Protein Cancelled Urine Ketones Cancelled Urine Nitrite Cancelled Urine Bilirubin Cancelled Urine Urobilinogen Cancelled Ur Leukocyte Esterase Cancelled Ur Microscopic Cancelled Urine RBC Cancelled Urine Hemoglobin Cancelled Ur Random Creatinine Cancelled Ur Random Sodium Cancelled Ur Random Potassium Cancelled Fraction Sodium Excret Cancelled Urine Glucose Cancelled 11/01 10/31 10/31 0400 2048 2048 Chemistry Sodium (137 - 145 mmol/L) 131 L 129 L Potassium (3.5 - 5.1 mmol/L) 3.6 3.5 Chloride (98 - 107 mmol/L) 105 100 Carbon Dioxide (22 - 30 mmol/L) 15 L 16 L Anion Gap (5 - 16) 12 13 BUN (9 - 20 mg/dL) 52 H 49 H Creatinine (0.7 - 1.2 mg/dL) 4.2 H 3.9 H Estimated GFR (>60 ml/min) 14 L 16 L BUN/Creatinine Ratio (7 - 25 %) 12.4 12.6 Phosphorus (2.5 - 4.5 mg/dL) 6.9 H Magnesium (1.6 - 2.3 mg/dL) 1.6 Cancelled 1.6 Total Bilirubin (0.2 - 1.3 mg/dL) 0.4 Direct Bilirubin (< 0.4 mg/dL) 0.3 AST (17 - 59 U/L) 17 ALT (21 - 72 U/L) 31 Alkaline Phosphatase (< 127 U/L) 46 Troponin I (<0.11 ng/ml) 0.05 Total Protein (6.3 - 8.2 g/dL) 4.8 L Albumin (3.5 - 5.0 g/dL) 2.7 L Coagulation PT (9.4 - 12.5 SEC) 10.8 INR (0.90 - 1.17) 1.03 Hematology CBC w Diff NO MAN DIFF REQ WBC (4.8 - 10.8 /CUMM) 6.4 RBC (4.70 - 6.10 /CUMM) 1.75 L Hgb (14.0 - 18.0 G/DL) 5.5 *L Hct (42 - 52 %) 16.3 *L MCV (80.0 - 94.0 FL) 93.2 MCH (27.0 - 31.0 PG) 31.6 H RDW (11.5 - 14.5 %) 15.9 H Plt Count (130 - 400 /CUMM) 119 L MPV (7.4 - 10.4 FL) 7.6 Gran % (42.2 - 75.2 %) 82.4 H Lymphocytes % (20.5 - 51.1 %) 5.7 L Monocytes % (1.7 - 9.3 %) 10.2 H Eosinophils % (0 - 5 %) 1.4 Basophils % (0.0 - 2.0 %) 0.3 Absolute Granulocytes (1.4 - 6.5 /CUMM) 5.2 Absolute Lymphocytes (1.2 - 3.4 /CUMM) 0.4 L Absolute Monocytes (0.10 - 0.60 /CUMM) 0.7 H Absolute Eosinophils (0.0 - 0.7 /CUMM) 0.1 Absolute Basophils (0.0 - 0.2 /CUMM) 0 PUBS MCHC (33.0 - 37.0 G/DL) 33.9 11/01 2047 Chemistry Sodium Cancelled Potassium Cancelled Chloride Cancelled Carbon Dioxide Cancelled Anion Gap Cancelled BUN Cancelled Creatinine Cancelled BUN/Creatinine Ratio Cancelled Magnesium Cancelled Total Bilirubin Cancelled Direct Bilirubin Cancelled AST Cancelled ALT Cancelled Alkaline Phosphatase Cancelled Total Protein Cancelled Albumin Cancelled Hematology CBC w Diff NO MAN DIFF REQ WBC (4.8 - 10.8 /CUMM) 6.5 RBC (4.70 - 6.10 /CUMM) 1.98 L Hgb (14.0 - 18.0 G/DL) 6.4 *L Hct (42 - 52 %) 18.3 *L MCV (80.0 - 94.0 FL) 92.7 MCH (27.0 - 31.0 PG) 32.3 H RDW (11.5 - 14.5 %) 15.7 H Plt Count (130 - 400 /CUMM) 148 MPV (7.4 - 10.4 FL) 7.6 Gran % (42.2 - 75.2 %) 82.4 H Lymphocytes % (20.5 - 51.1 %) 6.9 L Monocytes % (1.7 - 9.3 %) 10.0 H Eosinophils % (0 - 5 %) 0.4 Basophils % (0.0 - 2.0 %) 0.3 Absolute Granulocytes (1.4 - 6.5 /CUMM) 5.4 Absolute Lymphocytes (1.2 - 3.4 /CUMM) 0.4 L Absolute Monocytes (0.10 - 0.60 /CUMM) 0.7 H Absolute Eosinophils (0.0 - 0.7 /CUMM) 0 Absolute Basophils (0.0 - 0.2 /CUMM) 0 PUBS MCHC (33.0 - 37.0 G/DL) 34.9
--- NOTE | 2016-11-03 18:32 | PN- Cardiology ---
Subjective Subjective: * Doing well without suprapubic pain. * atrial fibrillation with controlled heart rate * creatinine improved to 3.5 Objective Vital Signs and I&Os Vital Signs Date Time Temp Pulse Resp B/P B/P Pulse O2 O2 Flow FiO2 Mean Ox Delivery Rate 11/03 1600 Nasal 3.0L Cannula 11/03 1600 98.2 90 22 128/80 11/03 1600 98.2 90 22 128/80 94 Nasal 3.0L Cannula 11/03 1400 78 20 153/75 11/03 1200 Nasal 3.0L Cannula 11/03 1200 98.0 89 22 142/80 11/03 1200 98.0 89 22 142/80 96 Nasal 3.0L Cannula 11/03 1000 84 22 136/82 11/03 0947 77 132/78 11/03 0947 77 132/78 11/03 0934 95 Nasal 2.0L Cannula 11/03 0800 Nasal 3.0L Cannula 11/03 0800 98.1 80 22 130/70 11/03 0800 98.1 80 22 130/70 94 Nasal 2.0L Cannula 11/03 0600 77 19 134/71 11/03 0400 99.3 76 18 135/73 11/03 0400 92 Nasal 3.0L Cannula 11/03 0000 98.5 72 24 122/63 11/03 0000 98.5 72 24 122/63 93 Nasal 3.0L Cannula 11/03 0000 93 Nasal 3.0L Cannula 11/02 2240 96 Nasal 2.0L Cannula 11/03 1999 98.0 69 26 140/90 11/03 1999 92 Nasal 2.0L Cannula Intake & Output 11/03 1600 11/03 0800 11/03 0000 11/02 1600 11/02 0800 11/02 0000 Intake Total 8501 890 4505 1300 1218 1420 Output Total 4100 1200 7652 218 8179 2200 Balance -2761 -240 230 650 -1432 -780 Intake, Blood 350 360 640 Product Intake, IV 379 600 660 700 558 300 Intake, Oral 960 360 420 600 300 480 Number 1 0 1 Bowel Movements Output, Urine 4100 1200 6844 176 7899 2200 Patient 210 lb Weight Physical Exam: General: WD/ obese male in NAD; alert and oriented x 3 HEENT: NC/ AT, PERRL, EOMI Neck: no JVD, no carotid bruit Heart: irregularly irregular w/o murmur Lungs: clear bilaterally Abdomen: soft, Obese, NT, +ve bowel sounds Extremities: no edema, left BKA Assessment/Plan Assessment/Plan * Blood pressure is improved. Continue Metoprolol for now. No anticoagulation for his atrial fibrillation at this time. * Patient is improved following blood transfusion and is tolerating his anemia well. This is expected to improve following surgical fulguration for his radiation cystitis. Follow platelet level which remains borderline. * Replete calcium if corrected level remains low, especially after multiple blood transfusions * No crackles and portable chest X-ray did not disclose any pulmonary edema. Repeat chest X-ray as a PA and Lateral film. His shortness of breath is likely due to a combination of severe anemia along with some restrictive lung disease from his obesity. There is no convincing decompensated CHF at this time. Continue telemetry? Yes
[2016-11-04] VITALS (10 sets, daily range): BP systolic 115–150; BP diastolic 62–88
[2016-11-04 04:29] LABS: ABSOLUTE BASOPHIL COUNT 0 /CUMM (0.0-0.2); ABSOLUTE EOSINOPHIL COUNT 0.1 /CUMM (0.0-0.7); ABSOLUTE GRANULOCYTE CT 3.2 /CUMM (1.4-6.5); ABSOLUTE LYMPH COUNT 0.3 /CUMM (1.2-3.4); ABSOLUTE MONOCYTE COUNT 0.6 /CUMM (0.10-0.60); BASOPHIL % 0.2 % (0.0-2.0); EOSINOPHIL % 2.2 % (0-5); GRANULOCYTE % 76.8 % (42.2-75.2); HEMATOCRIT 24.5 % (42-52); MEAN CORPUSCULAR HGB 31.3 PG (27.0-31.0); MEAN CORPUSCULAR HGB CONC 34.2 G/DL (33.0-37.0); MEAN CORPUSCULAR VOLUME 91.8 FL (80.0-94.0); MEAN PLATELET VOLUME 7.1 FL (7.4-10.4); PLATELET COUNT 102 /CUMM (130-400); RBC DISTRIBUTION WIDTH 16.2 % (11.5-14.5); RED BLOOD CELL CT 2.67 /CUMM (4.70-6.10); WHITE BLOOD CELL COUNT 4.1 /CUMM (4.8-10.8)
--- NOTE | 2016-11-04 07:11 | PN- Urology ---
Subjective Subjective: No acute distress Objective Vital Signs and I&Os Vital Signs Date Time Temp Pulse Resp B/P B/P Pulse O2 O2 Flow FiO2 Mean Ox Delivery Rate 11/04 0600 90 150/82 11/04 0400 97.8 20 15 119/69 11/04 0400 94 Nasal 3.0L Cannula 11/04 0000 Nasal 2.0L Cannula 11/03 2210 95 Nasal 2.0L Cannula 11/03 2200 98.0 84 20 135/82 11/03 2000 Nasal 3.0L Cannula 11/04 1999 98.4 85 19 141/89 11/03 1600 Nasal 3.0L Cannula 11/03 1600 98.2 90 22 128/80 11/03 1600 98.2 90 22 128/80 94 Nasal 3.0L Cannula 11/03 1400 78 20 153/75 11/03 1200 Nasal 3.0L Cannula 11/03 1200 98.0 89 22 142/80 11/03 1200 98.0 89 22 142/80 96 Nasal 3.0L Cannula 11/03 1000 84 22 136/82 11/03 0947 77 132/78 11/03 0947 77 132/78 11/03 0934 95 Nasal 2.0L Cannula 11/03 0800 Nasal 3.0L Cannula 11/03 0800 98.1 80 22 130/70 11/03 0800 98.1 80 22 130/70 94 Nasal 2.0L Cannula Intake & Output 11/04 0800 11/04 0000 11/03 1600 11/03 0800 11/03 0000 11/02 1600 Intake Total 432 753 4387 960 1430 1300 Output Total 1200 2500 4100 1200 1200 650 Balance -600 -2380 -2761 -240 230 650 Intake, Blood 350 Product Intake, IV 379 600 660 700 Intake, Oral 600 120 960 360 420 600 Number 1 0 1 Bowel Movements Output, Urine 1200 2500 4100 1200 1200 650 Patient 210 lb Weight Abd: soft and non tender. Bladder not distended. Genitalia: king in place. CBI is off. Urine is light pink to clear. Genital edema seems improved On po cipro for E. coli in urine Laboratory Tests 11/04 11/03 0405 1015 Blood Gas pH (7.35 - 7.45 PH) 7.33 L pCO2 (35 - 45 TORR) 28 L pO2 (80 - 100 TORR) 64 L HCO3 (21 - 28 MEQ/L) 14 L ABG O2 Sat (Measured) (>96.0 %) 92.0 L P-50 (Temp Corrected) N Carboxyhemoglobin (1.5 - 5.0 %) 0.3 L O2 Concentration % 2L O2 Delivery Method N/C Chemistry Sodium (137 - 145 mmol/L) 137 Potassium (3.5 - 5.1 mmol/L) 3.4 L Chloride (98 - 107 mmol/L) 107 Carbon Dioxide (22 - 30 mmol/L) 18 L Anion Gap (5 - 16) 12 BUN (9 - 20 mg/dL) 51 H Creatinine (0.7 - 1.2 mg/dL) 3.0 H Estimated GFR (>60 ml/min) 21 L Glucose (65 - 99 mg/dL) 116 H Calcium (8.4 - 10.2 mg/dL) 7.8 L Phosphorus (2.5 - 4.5 mg/dL) 5.7 H Magnesium (1.6 - 2.3 mg/dL) 1.7 Total Bilirubin (0.2 - 1.3 mg/dL) 0.4 AST (17 - 59 U/L) 20 ALT (21 - 72 U/L) 25 Albumin (3.5 - 5.0 g/dL) 2.4 L Hematology CBC w Diff NO MAN DIFF REQ WBC (4.8 - 10.8 /CUMM) 4.1 L RBC (4.70 - 6.10 /CUMM) 2.67 L Hgb (14.0 - 18.0 G/DL) 8.4 L Hct (42 - 52 %) 24.5 L MCV (80.0 - 94.0 FL) 91.8 MCH (27.0 - 31.0 PG) 31.3 H RDW (11.5 - 14.5 %) 16.2 H Plt Count (130 - 400 /CUMM) 102 L MPV (7.4 - 10.4 FL) 7.1 L Gran % (42.2 - 75.2 %) 76.8 H Lymphocytes % (20.5 - 51.1 %) 6.8 L Monocytes % (1.7 - 9.3 %) 14.0 H Eosinophils % (0 - 5 %) 2.2 Basophils % (0.0 - 2.0 %) 0.2 Absolute Granulocytes (1.4 - 6.5 /CUMM) 3.2 Absolute Lymphocytes (1.2 - 3.4 /CUMM) 0.3 L Absolute Monocytes (0.10 - 0.60 /CUMM) 0.6 Absolute Eosinophils (0.0 - 0.7 /CUMM) 0.1 Absolute Basophils (0.0 - 0.2 /CUMM) 0 PUBS MCHC (33.0 - 37.0 G/DL) 34.2 Miscellaneous Phlebotomy Draw Site RIGHT RADIAL Assessment/Plan Assessment/Plan Imp: 1. s/p cysto, clot evacuation and fulgeration of bleeding which is likely due to radiation cystitis 2. hx of prostate ca 3 UTI 4. ? hypotonic bladder from DM Plan: 1. Continue king thru the weekend and will plan on removal Monday AM if doing well 2. Complete course of cipro 3. Continue to hold anticoagulation at this point
--- NOTE | 2016-11-04 07:23 | PN- Resident CRCU ---
Subjective HPI/CRCU Issues: Follow up: -Acute blood loss anemia secondary to hemorrhagic radiation cystitis -Hematuria -Prostate cancer status post radiation therapy -YVROSE on top on CKD -DM, HTN, HLP -Alcohol withdrawal -COPD not on home oxygen -Chronic pain syndrome Patient was seen and examined this morning, he reported difficulty breathing, continue to have productive cough of yellow sputum, denied fever or chills. Patient denied chest pain, abdominal pain. No overnight events reported by the nurse of the patient. 24 Hour Events: Temperature 97.8, MAXIMUM TEMPERATURE 98.2 Pulse lowest 67, highest 92 A. fib Blood pressure lowest 110/67, highest 160/100 Respiratory rate 20 on 3 L saturation 92% Intake 3254, output 7800 Objective Vital Signs & I&O Last 8 Hrs of Vitals and I&O: Intake & Output 11/04 1600 Intake Total 1244 Output Total 3300 Balance -2055 Intake, IV 44 Intake, Oral 1200 Number 0 Bowel Movements Output, Urine 3300 Exam General Appearance: well developed/nourished, no apparent distress, alert Head: atraumatic, normal appearance Ears, Nose, Throat: normal pharynx, normal ENT inspection Neck: normal inspection, supple, full range of motion Respiratory: Decrease air entery bilateral scattered wheeze Cardiovascular: irregularly irregular Gastrointestinal: normal bowel sounds, soft, non-tender Extremities: normal inspection, normal capillary refill, normal range of motion, no edema Current Medications: Current Medications Sig/Avery Start time Last Medication Dose Route Stop Time Status Admin Acetaminophen 1,000 MG Q6H PRN 10/31 1500 AC 11/01 N/A 1 UNIT IV 0651 Albuterol Sulfate 3 ML Q4P PRN 11/01 2300 AC 11/04 INH 0845 Albuterol Sulfate 2 PUF Q4-6 PRN PRN 10/30 0930 AC 11/04 INH 0400 Atorvastatin Calcium 20 MG DAILY 10/30 1000 AC 11/04 PO 1054 Budesonide/ 2 PUF BID 10/30 1000 AC 11/04 Formoterol Fumarate INH 1055 Chlordiazepoxide HCl 10 MG BID 11/02 2200 AC 05 PO 1054 Ciprofloxacin 500 MG DAILY 11/04 1000 AC 05 PO 11/06 2300 1054 Duloxetine HCl 60 MG DAILY 10/30 999 AC 11/04 PO 1054 Folic Acid 1 MG DAILY 10/30 1000 AC 11/04 PO 1054 Furosemide 40 MG ONCE ONE 11/04 1545 DC 05/ IV 0512 1546 1639 Furosemide 40 MG ONCE ONE 11/04 0845 DC 11/04 IV PUSH 11/04 0846 0850 Gabapentin 600 MG TID 10/30 1000 AC 05 PO 1639 Insulin Aspart 0 TIDAC 10/31 1200 AC 11/04 SC 1220 Insulin Detemir 14 UNITS DAILY 10/30 1000 AC 11/04 SC 1020 Lorazepam See Dose Q1P PRN 10/30 1400 AC 11/04 Insts (1) IV 1053 Magnesium Hydroxide 30 ML ONE PRN 11/01 1545 AC 11/04 PO 1738 Magnesium Oxide 400 MG ONE ONE 11/04 0730 DC 11/04 PO 11/04 0731 0825 Metoprolol Succinate 25 MG DAILY 11/03 1000 AC 11/04 PO 1054 Morphine Sulfate 4 MG Q6-PRN PRN 11/01 1600 AC 11/04 IV 1013 Multivitamins 1 TAB DAILY 10/30 1000 AC 11/04 PO 1054 Polyethylene Glycol 17 GM DAILY 11/01 1544 AC 11/04 PO 1055 Potassium Chloride 40 MEQ ONCE ONE 11/04 0730 DC 11/04 PO 11/04 0731 0825 Senna/Docusate Sodium 1 TAB BID PRN 11/01 1545 AC 11/04 PO 1054 Sodium Bicarbonate 650 MG TID 11/02 1822 DC 11/04 PO 1054 Tamsulosin HCl 0.4 MG DAILY 10/30 1000 AC 11/04 PO 1055 Tramadol HCl 50 MG Q6P PRN 11/01 0115 AC 11/03 PO 2122 Dose Instructions: (1)Lorazepam: See admin criteria Impression/Plan Impression/Problem List Impression: Mr. Ling 66-year-old male with extensive past medical history, was admitted for alcohol detox and was to found hematuria and dysuria. Patient had drop in hemoglobin 5.5 with hematuria with clots and was transferred to ICU for close monitoring. Problem list -Prostate cancer s/p radiation -Hepatitis C s/p interferon treatment -Alcohol abuse and opiate dependence -Diabetes mellitus -Hypertension and hyperlipidemia -COPD -Osteomyelitis s/p left below the knee amputation in May 2016 -Atrial fibrillation on Elequis -Mitral valve prolapse status post repair Respiratory -History of COPD not on home oxygen -Continue oxygen supplementation 3L, keep saturation above 92% -Start BiPAP for 4 hours, respiratory rate 20 -TRC, nebulizers -Patient had chest x-ray yesterday that showed evidence of pulmonary edema (the actual film) and patient received 1 dose of 40 mg Lasix. This morning patient received 40 mg Lasix and another dose of 40 mg will be scheduled for 4 PM this evening -Continue monitor kidney function Infectious disease -Urine culture positive for Escherichia coli -Discontinue ceftriaxone Day#4 -Continue ciprofloxacin oral to finish course of 7 days 11/06/16 -Monitor fever, leukocytosis -Upper respiratory and GI cultures are negative -Continue Flomax 0.4 mg daily Cardiovascular -History of atrial fibrillation on elequis -History of hypertension and hyperlipidemia -Continue metoprolol 25 mg daily -Continue atorvastatin 20 mg daily -Hold aspirin and Eliquis for now given active bleeding Hematology -Anemia of acute blood loss -H&H initially was 5.5/16.3 -Difficulty obtaining blood that cross and match patient's blood given antibodies -Patient received 5 units of blood, hemoglobin is stable around 8 -Hemoglobin more than 8 -Patient has history of prostate cancer status post radiation, hemorrhagic radiation cystitis is believed to be the cause of active bleeding anemia -Recommendations regarding the possibility of hyperbaric oxygen for hemorrhagic radiation cystitis -Continue Kaiser catheter, urine color is light pink, dicontinue CBI per urology recommendation -Recommendation to continue Kaiser catheter during weekend, possible voiding trial after weekend -Scrotal elevation Metabolic -History of diabetes -Continue Accu-Chek TIDAC, HS -NovoLog scale -Levemir 14 units daily -Discontinue sodium bicarbonate per nephrology recommendation Alimentary -Consistent carbohydrate 3 -Folic acid, thiamine, multivitamin Neurological -History of alcohol abuse and opioid dependence -Continue Librium to 10 mg twice a day -Lorazepam CIWA score -Gabapentin 600 mg daily -Cymbalta 60 mg daily DVT prophylaxis ALPS Code FULL Consultation urology, cardiology, nephrology Problem List: 1. A.FIBB S/P CARDIOVERSION 2. ACUTE ON CHRONIC KIDNEY INJURY 3. History of prostate cancer 4. Gross hematuria Pain Ratin Tomorrow's Labs & Rationales: CBC, ICU bundle Plan DVT/Prophylaxis: mechanical
--- NOTE | 2016-11-04 09:01 | PN- CRCU ---
Subjective HPI/Critical Care Issues: The patient appears much more dyspneic this morning. He was given IV Lasix yesterday noting he was 3200 ml in with 7800 output. He has ongoing orthopnea and is unable to sleep. He remains on 3 L nasal cannula with saturations in the low 90s. He continues to be afebrile. There is minimal hematuria noted. The patient's creatinine continues to slowly improve. Objective Current Medications: Current Medications Sig/Avery Start time Last Medication Dose Route Stop Time Status Admin Acetaminophen 1,000 MG Q6H PRN 10/31 1500 AC 11/01 N/A 1 UNIT IV 0651 Albuterol Sulfate 3 ML Q4P PRN 11/01 2300 AC 11/04 INH 0845 Albuterol Sulfate 2 PUF Q4-6 PRN PRN 10/30 0930 AC 11/04 INH 0400 Atorvastatin Calcium 20 MG DAILY 10/30 1000 AC 11/03 PO 0945 Budesonide/ 2 PUF BID 10/30 1000 AC 11/03 Formoterol Fumarate INH 2110 Ceftriaxone Sodium 1,000 MG DAILY 11/01 0815 DC 11/03 IV 0944 Chlordiazepoxide HCl 10 MG BID 11/02 2200 AC 11/03 PO 2107 Ciprofloxacin 500 MG DAILY 11/04 1000 AC PO 11/06 2300 Duloxetine HCl 60 MG DAILY 10/30 1000 AC 11/03 PO 0945 Folic Acid 1 MG DAILY 10/30 1000 AC 11/03 PO 0945 Furosemide 40 MG ONCE ONE 11/04 0845 DC 11/04 IV PUSH 11/04 0846 0850 Furosemide 40 MG ONCE ONE 11/03 1100 DC 11/03 IV PUSH 11/03 1101 1053 Furosemide 40 MG .STK-MED ONE 11/03 1047 DC IV 11/03 1048 Gabapentin 600 MG TID / 1000 AC 11/03 PO 2107 Insulin Aspart 0 TIDAC 10/31 1200 AC 11/04 SC 0829 Insulin Detemir 14 UNITS DAILY 10/30 1000 AC 11/03 SC 0945 Lorazepam See Dose Q1P PRN 10/30 1400 AC 11/03 Insts (1) IV 2122 Magnesium Hydroxide 30 ML ONE PRN 11/01 1545 AC PO Magnesium Oxide 400 MG ONE ONE 11/04 0730 DC 11/04 PO 11/04 0731 0825 Magnesium Sulfate 1 GM ONCE ONE 11/03 0700 DC 11/03 Dextrose/Water 100 ML IV 11/03 1059 0747 Metoprolol Succinate 25 MG DAILY 11/03 1000 AC 11/03 PO 0947 Morphine Sulfate 4 MG Q6-PRN PRN 11/01 1600 AC 11/03 IV 2325 Multivitamins 1 TAB DAILY 10/30 1000 AC 11/03 PO 0945 Polyethylene Glycol 17 GM DAILY 11/01 1544 AC 11/03 PO 0944 Potassium Chloride 40 MEQ ONCE ONE 11/04 0730 DC 11/04 PO 11/04 0731 0825 Senna/Docusate Sodium 1 TAB BID PRN 11/01 1545 AC 11/03 PO 0945 Sodium Bicarbonate 50 MEQ Q13H 11/03 0745 DC Sodium Chloride 1,000 ML IV Sodium Bicarbonate 650 MG TID 11/02 1822 AC 11/03 PO 2107 Tamsulosin HCl 0.4 MG DAILY 10/30 1000 AC 11/03 PO 0947 Tramadol HCl 50 MG Q6P PRN 11/01 0115 AC 11/03 PO 2122 Dose Instructions: (1)Lorazepam: See admin criteria Vital Signs & I&O Last 24 Hrs of Vitals and I&O: Vital Signs Date Time Temp Pulse Resp B/P B/P Pulse O2 O2 Flow FiO2 Mean Ox Delivery Rate 11/04 0600 90 150/82 11/04 0400 97.8 20 15 119/69 11/04 0400 94 Nasal 3.0L Cannula 11/04 0000 Nasal 2.0L Cannula 11/03 2210 95 Nasal 2.0L Cannula 11/03 2200 98.0 84 20 135/82 11/03 2000 Nasal 3.0L Cannula 11/04 1999 98.4 85 19 141/89 11/03 1600 Nasal 3.0L Cannula 11/03 1600 98.2 90 22 128/80 11/03 1600 98.2 90 22 128/80 94 Nasal 3.0L Cannula 11/03 1400 78 20 153/75 11/03 1200 Nasal 3.0L Cannula 11/03 1200 98.0 89 22 142/80 11/03 1200 98.0 89 22 142/80 96 Nasal 3.0L Cannula 11/03 1000 84 22 136/82 11/03 0947 77 132/78 11/03 0947 77 132/78 11/03 0934 95 Nasal 2.0L Cannula Intake & Output 11/04 1600 05/12 0800 05/ 0000 Intake Total 600 120 Output Total 1200 2500 Balance -600 -2380 Intake, Oral 600 120 Output, Urine 1200 2500 Physical Exam General Appearance: increased respiratory distress with use of accessory muscles , alert, awake Head: atraumatic Respiratory: increased use of accessory muscles, wheezes and crackles heard throughout lung matias Cardiovascular: irregularly irregular Gastrointestinal: normal bowel sounds, soft, non-tender Back: normal inspection, normal range of motion Extremities: RUE Picc line, no erythema, LLE BKA, skin warm and dry Results Last 24 Hrs of Lab Results: Laboratory Tests 11/04/16 0405: Anion Gap 12, Estimated GFR 21 L, Glucose 116 H, Calcium 7.8 L, Phosphorus 5.7 H, Magnesium 1.7, Total Bilirubin 0.4, AST 20, ALT 25, Albumin 2.4 L, CBC w Diff NO MAN DIFF REQ, RBC 2.67 L, MCV 91.8, MCH 31.3 H, RDW 16.2 H, MPV 7.1 L, Gran % 76.8 H, Lymphocytes % 6.8 L, Monocytes % 14.0 H, Eosinophils % 2.2 , Basophils % 0.2, Absolute Granulocytes 3.2, Absolute Lymphocytes 0.3 L, Absolute Monocytes 0.6, Absolute Eosinophils 0.1, Absolute Basophils 0, PUBS MCHC 34.2 11/03/16 1015: pH 7.33 L, pCO2 28 L, pO2 64 L, HCO3 14 L, ABG O2 Sat (Measured) 92.0 L, P- 50 (Temp Corrected) N, Carboxyhemoglobin 0.3 L, O2 Concentration % 2L, O2 Delivery Method N/C, Phlebotomy Draw Site RIGHT RADIAL Impression/Plan Impression/Plan Impression/Plan: 1. 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 2. Acute kidney injury, superimposed on chronic disease, slowly improving. 3. EtOH withdrawal, with history of withdrawal seizures. 4. Insulin-dependent diabetes. 5. UTI, on ceftriaxone. 6. Treat in bud opacities left lower lobe, nonspecific. No evidence of active pneumonia. 7. Hypertension and hyperlipidemia. 8. History of atrial fibrillation, status post ablation and maze procedure, currently in AF on anticoagulation as outpatient. 9. Mitral valve prolapse status post repair. 10. Multiple comorbidities including bladder cancer status post radiation therapy, autoimmune hemolytic anemia, Waldenstroms macroglobulinemia, history of endocarditis, and hx of hepatitis C. 11. Obstructive lung disease. 12. Worsening respiratory distress, likely related to fluid overload. Recommendations: * Start BiPAP 12 over 4, respiratory rate of 20. We will adjust for comfort. * Give Lasix 40 mg IV 1 now. * Monitor strict I's and O's. * TRC for neb treatments to continue. * Replete electrolytes. * Follow up urology's recommendations. * Complete antibiotic course - 7 days total. * EtOH pathway and treatment. Monitor for withdrawal seizures. * Continue multivitamin, thiamine and folate. * Continue pain pathway - will need to confirm CMR in attempt to adjust medications for better pain control. * Continue insulin sliding scale. * Continue metoprolol, will follow up cardiology's recommendations. * Continue nebs/TRC/inhaler regimen. * Alps for DVT prophylaxis. No heparin due to bleeding. * PICC line still necessary for poor access. * Appreciate all consultants input.
--- NOTE | 2016-11-04 09:42 | PN- Cardiology ---
Subjective Subjective: * Shortness of breath yesterday that is somewhat improved this morning. * atrial fibrillation with good rate control. * creatinine down to 3.0 with potassium 3.4 Objective Vital Signs and I&Os Vital Signs Date Time Temp Pulse Resp B/P B/P Pulse O2 O2 Flow FiO2 Mean Ox Delivery Rate 11/04 0855 87 99 11/04 0855 96 Nasal 4.0L Cannula 11/04 0800 Nasal 3.0L Cannula 11/04 0800 98.1 106 22 144/80 11/04 0800 98.1 106 22 144/80 93 Nasal 3.0L Cannula 11/04 0600 90 150/82 11/04 0400 97.8 20 15 119/69 11/04 0400 94 Nasal 3.0L Cannula 11/04 0000 Nasal 2.0L Cannula 11/03 2210 95 Nasal 2.0L Cannula 11/03 2200 98.0 84 20 135/82 11/04 1999 Nasal 3.0L Cannula 11/04 1999 98.4 85 19 141/89 11/03 1600 Nasal 3.0L Cannula 11/03 1600 98.2 90 22 128/80 11/03 1600 98.2 90 22 128/80 94 Nasal 3.0L Cannula 11/03 1400 78 20 153/75 11/03 1200 Nasal 3.0L Cannula 11/03 1200 98.0 89 22 142/80 11/03 1200 98.0 89 22 142/80 96 Nasal 3.0L Cannula 11/03 1000 84 22 136/82 11/03 0947 77 132/78 11/03 0947 77 132/78 Intake & Output 11/04 1600 11/04 0800 11/04 0000 11/03 1600 11/03 0800 11/03 0000 Intake Total 638 299 1376 960 1430 Output Total 1200 2500 4100 1200 1200 Balance -600 -2380 -2761 -240 230 Intake, Blood 350 Product Intake, IV 379 600 660 Intake, Oral 600 120 960 360 420 Number 1 0 1 Bowel Movements Output, Urine 1200 2500 4100 1200 1200 Patient 210 lb Weight Physical Exam: General: WD/ obese male in NAD; alert and oriented x 3 HEENT: NC/ AT, PERRL, EOMI Neck: no JVD, no carotid bruit Heart: irregularly irregular w/o murmur Lungs: clear bilaterally Abdomen: soft, Obese, NT, +ve bowel sounds Extremities: no edema, left BKA Assessment/Plan Assessment/Plan * Blood pressure is improved. Continue Metoprolol for now. No anticoagulation for his atrial fibrillation at this time. Discuss [facility] urology when it is safe to restart anticoagulation for atrial fibrillation. H/H appears stable although patient is anemic. * Follow platelet level which remains borderline. * Replete calcium if corrected level remains low, especially after multiple blood transfusions * No crackles and portable chest X-ray did not disclose any pulmonary edema. Repeat chest X-ray as a PA and Lateral film. His shortness of breath is likely due to a combination of severe anemia along with some restrictive lung disease from his obesity. There is no convincing decompensated CHF at this time but an adequate chest X-ray may be helpful. An accurate physical exam is difficult on this patient; repeat a BNP to assess for any decompensation. Continue telemetry? Yes
--- NOTE | 2016-11-04 14:51 | PN- Nephrology ---
Assessment/Plan Assessment: 1. CKD stage III likely multifactorial including hepatitis C associated chronic GN, diabetes mellitus and hypertension 2. Acute kidney injury - likely a combination of obstructive disease and acute tubular necrosis 3. Metabolic acidosis with normal anion gap 4. Interstitial cystitis related to previous radiation therapy 5. COPD with bronchospasm; ?superimposed chf? 6. Multiple comorbidities as noted Suggestion: 1. Would give another dose of Lasix 40 mg IV this afternoon 2. Discontinue sodium bicarbonate 3. Management of COPD per Pulmonary 4. Monitor chemistries, intake and output daily Subjective Subjective: Patient now off CBI but he did appear to diurese yesterday after 40 mg of IV Lasix. He received another 40 mg this morning. He claims his breathing is better but he remains quite congested. Interestingly, his renal function continues to improve with creatinine down to 3.0 today. Serum bicarbonate up to 18. Objective Vital Signs and I&Os Vital Signs Date Time Temp Pulse Resp B/P B/P Pulse O2 O2 Flow FiO2 Mean Ox Delivery Rate 11/04 1200 Nasal 4.0L Cannula 11/04 1200 97.7 86 24 120/80 11/04 1100 90 22 132/78 11/04 1055 86 118/68 11/04 1054 86 118/68 11/04 1000 92 22 115/67 11/04 0855 87 99 11/04 0855 96 Nasal 4.0L Cannula 11/04 0800 Nasal 3.0L Cannula 11/04 0800 98.1 106 22 144/80 / 0800 98.1 106 22 144/80 93 Nasal 3.0L Cannula 11/04 0600 90 150/82 11/04 0400 97.8 20 15 119/69 11/04 0400 94 Nasal 3.0L Cannula 11/04 0000 Nasal 2.0L Cannula 11/03 2210 95 Nasal 2.0L Cannula 11/03 2200 98.0 84 20 135/82 11/03 2000 Nasal 3.0L Cannula 11/04 1999 98.4 85 19 141/89 11/03 1600 Nasal 3.0L Cannula 11/03 1600 98.2 90 22 128/80 11/03 1600 98.2 90 22 128/80 94 Nasal 3.0L Cannula Intake & Output 11/04 1600 11/04 0400 11/03 1600 11/03 0400 11/02 1600 11/02 0400 Intake Total 485 006 2983 1430 2518 1420 Output Total 1200 2500 5300 1200 3300 2200 Balance -600 -4460 -3001 230 -442 780 Intake, Blood 350 360 640 Product Intake, IV 348 183 3420 300 Intake, Oral 836 869 9418 420 900 480 Number 1 1 Bowel Movements Output, Urine 1200 2500 5300 1200 3300 2200 Patient 210 lb Weight Physical Exam: General: Well-developed, obese white male in NAD Skin: No rash or jaundice HEENT: Conjunctivae pale, sclerae anicteric, mucous membranes dry Neck: Without masses or thyromegaly, no supraclavicular or cervical adenopathy Chest: Wheezes and rhonchi bilaterally Heart: Irregular rhythm without S3 or rub Abdomen: Obese, soft, nontender with an asymmetric longitudinal surgical scar below the umbilicus, ventral hernia Extremities: Trace edema. 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 No focal findings, no asterixis or myoclonus Current Medications: Current Medications Sig/Avery Start time Last Medication Dose Route Stop Time Status Admin Acetaminophen 1,000 MG Q6H PRN 10/31 1500 AC 11/01 N/A 1 UNIT IV 0651 Albuterol Sulfate 3 ML Q4P PRN 11/01 2300 AC 11/04 INH 0845 Albuterol Sulfate 2 PUF Q4-6 PRN PRN 10/30 0930 AC 11/04 INH 0400 Atorvastatin Calcium 20 MG DAILY 10/30 1000 AC 11/04 PO 1054 Budesonide/ 2 PUF BID 10/30 1000 AC 11/04 Formoterol Fumarate INH 1055 Chlordiazepoxide HCl 10 MG BID 11/02 2200 AC 11/04 PO 1054 Ciprofloxacin 500 MG DAILY 11/04 1000 AC 05/ PO 11/06 2300 1054 Duloxetine HCl 60 MG DAILY 10/30 1000 AC / PO 1054 Folic Acid 1 MG DAILY 10/30 1000 AC 11/04 PO 1054 Furosemide 40 MG ONCE ONE 11/04 0845 DC 11/04 IV PUSH 11/04 0846 0850 Gabapentin 600 MG TID 10/30 1000 AC 11/04 PO 1054 Insulin Aspart 0 TIDAC 10/31 1200 AC 11/04 SC 1220 Insulin Detemir 14 UNITS DAILY 10/30 1000 AC 11/04 SC 1020 Lorazepam See Dose Q1P PRN 10/30 1400 AC 11/04 Insts (1) IV 1053 Magnesium Hydroxide 30 ML ONE PRN 11/01 1545 AC PO Magnesium Oxide 400 MG ONE ONE 11/04 0630 DC 11/04 PO 11/04 0731 0825 Metoprolol Succinate 25 MG DAILY 11/03 1000 AC 11/04 PO 1054 Morphine Sulfate 4 MG Q6-PRN PRN 11/01 1600 AC 11/04 IV 1013 Multivitamins 1 TAB DAILY 10/30 1000 AC 11/04 PO 1054 Polyethylene Glycol 17 GM DAILY 11/01 1544 AC 11/04 PO 1055 Potassium Chloride 40 MEQ ONCE ONE 11/04 0630 DC 11/04 PO 11/04 0731 0825 Senna/Docusate Sodium 1 TAB BID PRN 11/01 1545 AC 11/04 PO 1054 Sodium Bicarbonate 650 MG TID 11/02 1822 AC 11/04 PO 1054 Tamsulosin HCl 0.4 MG DAILY 10/30 1000 AC 11/04 PO 1055 Tramadol HCl 50 MG Q6P PRN 11/01 0115 AC 11/03 PO 2122 Dose Instructions: (1)Lorazepam: See admin criteria Results Pertinent Lab Results: Laboratory Tests 11/04 11/03 0405 1015 Blood Gas pH (7.35 - 7.45 PH) 7.33 L pCO2 (35 - 45 TORR) 28 L pO2 (80 - 100 TORR) 64 L HCO3 (21 - 28 MEQ/L) 14 L ABG O2 Sat (Measured) (>96.0 %) 92.0 L P-50 (Temp Corrected) N Carboxyhemoglobin (1.5 - 5.0 %) 0.3 L O2 Concentration % 2L O2 Delivery Method N/C Chemistry Sodium (137 - 145 mmol/L) 137 Potassium (3.5 - 5.1 mmol/L) 3.4 L Chloride (98 - 107 mmol/L) 107 Carbon Dioxide (22 - 30 mmol/L) 18 L Anion Gap (5 - 16) 12 BUN (9 - 20 mg/dL) 51 H Creatinine (0.7 - 1.2 mg/dL) 3.0 H Estimated GFR (>60 ml/min) 21 L Glucose (65 - 99 mg/dL) 116 H Calcium (8.4 - 10.2 mg/dL) 7.8 L Phosphorus (2.5 - 4.5 mg/dL) 5.7 H Magnesium (1.6 - 2.3 mg/dL) 1.7 Total Bilirubin (0.2 - 1.3 mg/dL) 0.4 AST (17 - 59 U/L) 20 ALT (21 - 72 U/L) 25 Albumin (3.5 - 5.0 g/dL) 2.4 L Hematology CBC w Diff NO MAN DIFF REQ WBC (4.8 - 10.8 /CUMM) 4.1 L RBC (4.70 - 6.10 /CUMM) 2.67 L Hgb (14.0 - 18.0 G/DL) 8.4 L Hct (42 - 52 %) 24.5 L MCV (80.0 - 94.0 FL) 91.8 MCH (27.0 - 31.0 PG) 31.3 H RDW (11.5 - 14.5 %) 16.2 H Plt Count (130 - 400 /CUMM) 102 L MPV (7.4 - 10.4 FL) 7.1 L Gran % (42.2 - 75.2 %) 76.8 H Lymphocytes % (20.5 - 51.1 %) 6.8 L Monocytes % (1.7 - 9.3 %) 14.0 H Eosinophils % (0 - 5 %) 2.2 Basophils % (0.0 - 2.0 %) 0.2 Absolute Granulocytes (1.4 - 6.5 /CUMM) 3.2 Absolute Lymphocytes (1.2 - 3.4 /CUMM) 0.3 L Absolute Monocytes (0.10 - 0.60 /CUMM) 0.6 Absolute Eosinophils (0.0 - 0.7 /CUMM) 0.1 Absolute Basophils (0.0 - 0.2 /CUMM) 0 PUBS MCHC (33.0 - 37.0 G/DL) 34.2 Miscellaneous Phlebotomy Draw Site RIGHT RADIAL 11/03 11/02 7444 8652 Chemistry Sodium (137 - 145 mmol/L) 136 L Potassium (3.5 - 5.1 mmol/L) 4.0 Chloride (98 - 107 mmol/L) 112 H Carbon Dioxide (22 - 30 mmol/L) 15 L Anion Gap (5 - 16) 9 BUN (9 - 20 mg/dL) 51 H Creatinine (0.7 - 1.2 mg/dL) 3.5 H Estimated GFR (>60 ml/min) 18 L Glucose (65 - 99 mg/dL) 116 H Calcium (8.4 - 10.2 mg/dL) 7.0 L Phosphorus (2.5 - 4.5 mg/dL) 6.1 H Magnesium (1.6 - 2.3 mg/dL) 1.7 Total Bilirubin (0.2 - 1.3 mg/dL) 0.3 AST (17 - 59 U/L) 17 ALT (21 - 72 U/L) 28 Albumin (3.5 - 5.0 g/dL) 2.2 L Hematology CBC w Diff NO MAN DIFF REQ NO MAN DIFF REQ WBC (4.8 - 10.8 /CUMM) 4.2 L 4.5 L RBC (4.70 - 6.10 /CUMM) 2.65 L 2.67 L Hgb (14.0 - 18.0 G/DL) 8.2 L 8.3 L Hct (42 - 52 %) 24.1 L 24.4 L MCV (80.0 - 94.0 FL) 91.0 91.2 MCH (27.0 - 31.0 PG) 31.2 H 31.0 RDW (11.5 - 14.5 %) 16.0 H 15.9 H Plt Count (130 - 400 /CUMM) 74 L 71 L MPV (7.4 - 10.4 FL) 7.4 7.4 Gran % (42.2 - 75.2 %) 81.3 H 84.1 H Lymphocytes % (20.5 - 51.1 %) 5.5 L 3.8 L Monocytes % (1.7 - 9.3 %) 10.5 H 9.4 H Eosinophils % (0 - 5 %) 2.5 2.7 Basophils % (0.0 - 2.0 %) 0.2 0 L Absolute Granulocytes (1.4 - 6.5 /CUMM) 3.4 3.8 Absolute Lymphocytes (1.2 - 3.4 /CUMM) 0.2 L 0.2 L Absolute Monocytes (0.10 - 0.60 /CUMM) 0.4 0.4 Absolute Eosinophils (0.0 - 0.7 /CUMM) 0.1 0.1 Absolute Basophils (0.0 - 0.2 /CUMM) 0 0 PUBS MCHC (33.0 - 37.0 G/DL) 34.2 34.0 11/02 11/02 1307 0420 Chemistry Sodium (137 - 145 mmol/L) 136 L Potassium (3.5 - 5.1 mmol/L) 4.6 Chloride (98 - 107 mmol/L) 112 H Carbon Dioxide (22 - 30 mmol/L) 12 L Anion Gap (5 - 16) 11 BUN (9 - 20 mg/dL) 53 H Creatinine (0.7 - 1.2 mg/dL) 4.2 H Estimated GFR (>60 ml/min) 14 L Glucose (65 - 99 mg/dL) 139 H Calcium (8.4 - 10.2 mg/dL) 6.7 L Phosphorus (2.5 - 4.5 mg/dL) 7.7 H Magnesium (1.6 - 2.3 mg/dL) 1.6 Total Bilirubin (0.2 - 1.3 mg/dL) 0.3 AST (17 - 59 U/L) 15 L ALT (21 - 72 U/L) 29 Albumin (3.5 - 5.0 g/dL) 2.2 L Hematology CBC w Diff NO MAN DIFF REQ NO MAN DIFF REQ WBC (4.8 - 10.8 /CUMM) 4.3 L 5.1 RBC (4.70 - 6.10 /CUMM) 2.37 L 2.28 L Hgb (14.0 - 18.0 G/DL) 7.4 *L 7.4 *L Hct (42 - 52 %) 21.6 L 21.3 L MCV (80.0 - 94.0 FL) 91.3 93.4 MCH (27.0 - 31.0 PG) 31.4 H 32.3 H RDW (11.5 - 14.5 %) 15.8 H 15.3 H Plt Count (130 - 400 /CUMM) 71 L 75 L MPV (7.4 - 10.4 FL) 6.8 L 7.4 Gran % (42.2 - 75.2 %) 81.8 H 82.6 H Lymphocytes % (20.5 - 51.1 %) 5.1 L 4.9 L Monocytes % (1.7 - 9.3 %) 10.4 H 11.0 H Eosinophils % (0 - 5 %) 2.6 1.4 Basophils % (0.0 - 2.0 %) 0.1 0.1 Absolute Granulocytes (1.4 - 6.5 /CUMM) 3.5 4.2 Absolute Lymphocytes (1.2 - 3.4 /CUMM) 0.2 L 0.2 L Absolute Monocytes (0.10 - 0.60 /CUMM) 0.4 0.6 Absolute Eosinophils (0.0 - 0.7 /CUMM) 0.1 0.1 Absolute Basophils (0.0 - 0.2 /CUMM) 0 0 PUBS MCHC (33.0 - 37.0 G/DL) 34.4 34.6 11/01 05 2300 1999 Chemistry Sodium Cancelled Potassium Cancelled Chloride Cancelled Carbon Dioxide Cancelled Anion Gap Cancelled BUN Cancelled Creatinine Cancelled Glucose Cancelled Calcium Cancelled Phosphorus Cancelled Magnesium Cancelled Total Bilirubin Cancelled AST Cancelled ALT Cancelled Albumin Cancelled Hematology CBC w Diff NO MAN DIFF REQ Cancelled WBC (4.8 - 10.8 /CUMM) 6.6 Cancelled RBC (4.70 - 6.10 /CUMM) 2.19 L Cancelled Hgb (14.0 - 18.0 G/DL) 7.0 *L Cancelled Hct (42 - 52 %) 20.7 L Cancelled MCV (80.0 - 94.0 FL) 94.5 H Cancelled MCH (27.0 - 31.0 PG) 31.8 H Cancelled RDW (11.5 - 14.5 %) 14.8 H Cancelled Plt Count (130 - 400 /CUMM) 92 L Cancelled MPV (7.4 - 10.4 FL) 7.3 L Cancelled Gran % (42.2 - 75.2 %) 86.3 H Lymphocytes % (20.5 - 51.1 %) 4.0 L Monocytes % (1.7 - 9.3 %) 8.5 Eosinophils % (0 - 5 %) 1.2 Basophils % (0.0 - 2.0 %) 0 L Absolute Granulocytes (1.4 - 6.5 /CUMM) 5.7 Absolute Lymphocytes (1.2 - 3.4 /CUMM) 0.3 L Absolute Monocytes (0.10 - 0.60 /CUMM) 0.6 Absolute Eosinophils (0.0 - 0.7 /CUMM) 0.1 Absolute Basophils (0.0 - 0.2 /CUMM) 0 PUBS MCHC (33.0 - 37.0 G/DL) 33.7 Cancelled 11/01 1700 Chemistry Sodium (137 - 145 mmol/L) 132 L Potassium (3.5 - 5.1 mmol/L) 3.9 Chloride (98 - 107 mmol/L) 105 Carbon Dioxide (22 - 30 mmol/L) 14 L Anion Gap (5 - 16) 14 BUN (9 - 20 mg/dL) 54 H Creatinine (0.7 - 1.2 mg/dL) 4.1 H Estimated GFR (>60 ml/min) 15 L Glucose (65 - 99 mg/dL) 165 H Calcium (8.4 - 10.2 mg/dL) 6.9 L Phosphorus (2.5 - 4.5 mg/dL) 7.7 H Magnesium (1.6 - 2.3 mg/dL) 1.6 Total Bilirubin (0.2 - 1.3 mg/dL) 0.3 AST (17 - 59 U/L) 18 ALT (21 - 72 U/L) 30 Albumin (3.5 - 5.0 g/dL) 2.8 L Hematology CBC w Diff NO MAN DIFF REQ WBC (4.8 - 10.8 /CUMM) 6.9 RBC (4.70 - 6.10 /CUMM) 2.30 L Hgb (14.0 - 18.0 G/DL) 7.3 *L Hct (42 - 52 %) 21.5 L MCV (80.0 - 94.0 FL) 93.3 MCH (27.0 - 31.0 PG) 31.6 H RDW (11.5 - 14.5 %) 15.2 H Plt Count (130 - 400 /CUMM) 118 L MPV (7.4 - 10.4 FL) 7.5 Gran % (42.2 - 75.2 %) 84.0 H Lymphocytes % (20.5 - 51.1 %) 5.6 L Monocytes % (1.7 - 9.3 %) 8.7 Eosinophils % (0 - 5 %) 1.7 Basophils % (0.0 - 2.0 %) 0 L Absolute Granulocytes (1.4 - 6.5 /CUMM) 5.8 Absolute Lymphocytes (1.2 - 3.4 /CUMM) 0.4 L Absolute Monocytes (0.10 - 0.60 /CUMM) 0.6 Absolute Eosinophils (0.0 - 0.7 /CUMM) 0.1 Absolute Basophils (0.0 - 0.2 /CUMM) 0 PUBS MCHC (33.0 - 37.0 G/DL) 33.9
--- NOTE | 2016-11-04 16:38 | RADIOLOGY REPORT ---
EXAMINATION: XR PORTABLE CHEST CLINICAL INFORMATION: Shortness of breath. COMPARISON: Chest done on 11/03/2016. TECHNIQUE: Portable frontal view of the chest was obtained. FINDINGS: The cardiomediastinal silhouette remain mildly to moderately enlarged, unchanged. There is a right-sided PICC line present. There is a patchy right perihilar and left lower lobar airspace disease present, may represent hypoventilatory, atelectatic changes versus developing infiltrate. There is no evidence of any pulmonary venous hypertension, pleural effusion present. IMPRESSION: 1. Mild stable enlargement of the cardiomediastinal silhouette. 2. Nonspecific patchy airspace opacities at right perihilar and left lower lung field, may represent infiltrate, atelectasis or combination thereof. 3. No radiographic evidence of any pulmonary venous hypertension and/or pleural effusion.
[2016-11-05] VITALS (8 sets, daily range): BP systolic 105–148; BP diastolic 66–88
[2016-11-05 06:27] LABS: ABSOLUTE BASOPHIL COUNT 0 /CUMM (0.0-0.2); ABSOLUTE EOSINOPHIL COUNT 0.1 /CUMM (0.0-0.7); ABSOLUTE GRANULOCYTE CT 3.4 /CUMM (1.4-6.5); ABSOLUTE LYMPH COUNT 0.3 /CUMM (1.2-3.4); ABSOLUTE MONOCYTE COUNT 0.8 /CUMM (0.10-0.60); BASOPHIL % 0.1 % (0.0-2.0); EOSINOPHIL % 3.2 % (0-5); GRANULOCYTE % 73.7 % (42.2-75.2); HEMATOCRIT 26.2 % (42-52); MEAN CORPUSCULAR HGB CONC 33.8 G/DL (33.0-37.0); MEAN CORPUSCULAR VOLUME 91.7 FL (80.0-94.0); MEAN PLATELET VOLUME 7.3 FL (7.4-10.4); PLATELET COUNT 143 /CUMM (130-400); RED BLOOD CELL CT 2.86 /CUMM (4.70-6.10); WHITE BLOOD CELL COUNT 4.6 /CUMM (4.8-10.8)
--- NOTE | 2016-11-05 07:11 | PN- Resident CRCU ---
Subjective HPI/CRCU Issues: Issues: -Acute blood loss anemia secondary to hemorrhagic radiation cystitis -Hematuria -Prostate cancer status post radiation therapy -YVROSE on top on CKD -DM, HTN, HLP -Alcohol withdrawal -COPD not on home oxygen -Chronic pain syndrome Mr Ling was seen and examined this morning. Is resting comfortably in bed. Tolerating breakfast this morning well. Patient states that he does feel better although continues to endorse pain. Pain is rated 9 out of 10 in severity. Described as dull pain. Located in lower back. Feels like pain is not well controlled. Denies any fever, chills, nausea, vomiting. 24 Hour Events: 7 beat Run at 00.23. Objective Vital Signs & I&O Last 8 Hrs of Vitals and I&O: T: 98.1 HR: 77-106 Rhythm: A Fib RR: 15-28 BP: 94/71-144/83 3L-->4L O2 Sat: 96% UO: [id number] SII:2900 SIII:1200 Exam General Appearance: well developed/nourished, no apparent distress, alert, awake , comfortable Head: atraumatic Respiratory: normal breath sounds, crackles Cardiovascular: Irregular rate and rhythm Gastrointestinal: normal bowel sounds, soft, non-tender, Abdominal Hernia Extremities: Left BKA. Cranial Nerves: normal hearing, normal speech, PERRL Current Medications: Current Medications Sig/Avery Start time Last Medication Dose Route Stop Time Status Admin Acetaminophen 1,000 MG Q6H PRN 10/31 1500 AC 11/01 N/A 1 UNIT IV 0651 Albuterol Sulfate 3 ML Q4P PRN 11/01 2300 AC 11/04 INH 0845 Albuterol Sulfate 2 PUF Q4-6 PRN PRN 10/30 0930 AC 11/04 INH 0400 Atorvastatin Calcium 20 MG DAILY 10/30 1000 AC 11/05 PO 0943 Bisacodyl 5 MG DAILY 11/05 1000 AC 11/05 PO 0943 Bisacodyl 10 MG DAILY NEEDED PRN 11/04 1915 AC DE Budesonide/ 2 PUF BID 10/30 1000 AC 11/05 Formoterol Fumarate INH 0945 Chlordiazepoxide HCl 10 MG BID 11/02 2200 AC 11/05 PO 0944 Ciprofloxacin 500 MG DAILY 11/04 1000 AC 11/05 PO 11/060 0944 Duloxetine HCl 60 MG DAILY 10/30 1000 AC 11/05 PO 0944 Folic Acid 1 MG DAILY 10/30 1000 AC 11/05 PO 0944 Furosemide 40 MG ONCE ONE 11/04 1545 DC 11/04 IV 11/04 1546 1639 Gabapentin 600 MG TID 10/30 1000 AC 11/05 PO 0943 Insulin Aspart 0 TIDAC 10/31 1200 AC 11/05 SC 1200 Insulin Detemir 14 UNITS DAILY 10/30 1000 AC 11/05 SC 0944 Lorazepam See Dose Q1P PRN 10/30 1400 AC 11/04 Insts (1) IV 1053 Magnesium Hydroxide 30 ML ONE PRN 11/01 1545 AC 11/04 PO 1738 Magnesium Oxide 400 MG ONE ONE 11/05 1115 DC 11/05 PO 11/05 1116 1200 Metoprolol Succinate 25 MG DAILY 11/03 1000 AC 11/05 PO 0944 Morphine Sulfate 4 MG Q6-PRN PRN 11/01 1600 AC 11/05 IV 0230 Multivitamins 1 TAB DAILY 10/30 1000 AC 11/05 PO 0946 Polyethylene Glycol 17 GM DAILY 11/01 1544 AC 11/05 PO 0944 Potassium Chloride 40 MEQ ONCE ONE 11/05 1115 DC 11/05 PO 11/05 1116 1200 Senna/Docusate Sodium 1 TAB BID PRN 11/01 1545 AC 11/04 PO 1054 Sodium Bicarbonate 650 MG TID 11/02 1822 DC 11/04 PO 1054 Tamsulosin HCl 0.4 MG DAILY 10/30 1000 AC 11/05 PO 0944 Tramadol HCl 50 MG Q6P PRN 11/01 0115 AC 11/03 PO 2122 Dose Instructions: (1)Lorazepam: See admin criteria Impression/Plan Impression/Problem List Impression: Mr. Ling 66-year-old male with extensive past medical history, was admitted for alcohol detox and was to found hematuria and dysuria. Patient had drop in hemoglobin 5.5 with hematuria with clots and was transferred to ICU for close monitoring. Problem list -Prostate cancer s/p radiation -Hepatitis C s/p interferon treatment -Alcohol abuse and opiate dependence -Diabetes mellitus -Hypertension and hyperlipidemia -COPD -Osteomyelitis s/p left below the knee amputation in May 2016 -Atrial fibrillation on Elequis -Mitral valve prolapse status post repair Respiratory -History of COPD not on home oxygen -Continue oxygen supplementation 4L, keep saturation above 92% -Start BiPAP for 4 hours, respiratory rate 20 -TRC, nebulizers -Continue monitor kidney function Infectious disease -Urine culture positive for Escherichia coli -Discontinue ceftriaxone Day#4 -Continue ciprofloxacin oral to finish course of 7 days 11/06/16 -Monitor fever, leukocytosis -Upper respiratory and GI cultures are negative -Continue Flomax 0.4 mg daily Cardiovascular -History of atrial fibrillation on elequis -History of hypertension and hyperlipidemia -Continue metoprolol 25 mg daily -Continue atorvastatin 20 mg daily -Hold aspirin and Eliquis for now given active bleeding Hematology -Anemia of acute blood loss -H&H initially was 5.5/16.3 -Difficulty obtaining blood that cross and match patient's blood given antibodies -Patient received 5 units of blood, hemoglobin is stable around 8.7 -Hemoglobin more than 8 -Patient has history of prostate cancer status post radiation, hemorrhagic radiation cystitis is believed to be the cause of active bleeding anemia -Recommendations regarding the possibility of hyperbaric oxygen for hemorrhagic radiation cystitis -Continue Kaiser catheter, urine color is light pink, dicontinue CBI per urology recommendation -Recommendation to continue Kaiser catheter during weekend, possible voiding trial after weekend. It was noted pink urine in the patients Kaiser. There was also evidence of clots. Callback was requested from the urologist. Urologies recommended that the we continue irrigating by hand catheter with tip syringe and avoid CBI for now. In the event that gross hematuria is noted we may consider CBI at that point. -Scrotal elevation Metabolic -History of diabetes -Continue Accu-Chek TIDAC, HS -NovoLog scale: Fingerstick 158, 142, 157 -Levemir 14 units daily -Discontinue sodium bicarbonate per nephrology recommendation Alimentary -Consistent carbohydrate 3 -Folic acid, thiamine, multivitamin Neurological -History of alcohol abuse and opioid dependence -Continue Librium to 10 mg twice a day -Lorazepam CIWA score. CIWA: 0,0,0,3,3,3,0 -Continue Gabapentin 600 mg daily -Continue Cymbalta 60 mg daily -Reconciled medications with the pharmacy ([facility])For pain patient is on: Morphine ER 30 mg BID and oxycodone 15 mg Q4 PRN. These have been added to the patient's medication list for pain relief.Other pain medications were discontinued. DVT prophylaxis ALPS Code FULL Problem List: 1. Gross hematuria 2. A.FIBB S/P CARDIOVERSION 3. ACUTE ON CHRONIC KIDNEY INJURY Pain Ratin Pain Location: Back Tomorrow's Labs & Rationales: CBC ICU Bundle Plan DVT/Prophylaxis: mechanical
[2016-11-05] MEDS ORDERED: MS CONTIN30 M1 PO (14:26)
[2016-11-05] MEDS ORDERED: OXYCODONE HCL15 M1 PO (14:27)
--- NOTE | 2016-11-05 16:34 | PN- CRCU ---
Subjective HPI/Critical Care Issues: The patient appears much more comfortable today. His oxygen saturations remained stable. Requiring BiPAP or high flow oxygen. Overall he feels improved. The patient does admit to tugging on his Kaiser catheter, resulting in hematuria. He continues to have chronic pain which is being addressed on a daily basis. Objective Current Medications: Current Medications Sig/Avery Start time Last Medication Dose Route Stop Time Status Admin Acetaminophen 1,000 MG Q6H PRN 10/31 1500 AC 11/01 N/A 1 UNIT IV 0651 Albuterol Sulfate 3 ML Q4P PRN 11/01 2300 AC 11/04 INH 0845 Albuterol Sulfate 2 PUF Q4-6 PRN PRN 10/30 0930 AC 11/04 INH 0400 Alteplase, 2 MG ONE ONE 11/05 1245 DC 11/05 Recombinant IV 11/05 1246 1340 Atorvastatin Calcium 20 MG DAILY 10/30 1000 AC 11/05 PO 0943 Bisacodyl 5 MG DAILY 11/05 1000 AC 11/05 PO 0943 Bisacodyl 10 MG DAILY NEEDED PRN 11/04 1915 AC DC Budesonide/ 2 PUF BID 10/30 1000 AC 11/05 Formoterol Fumarate INH 0945 Chlordiazepoxide HCl 10 MG BID 11/02 2200 AC 11/05 PO 0944 Ciprofloxacin 500 MG DAILY 11/04 1000 AC 11/05 PO 11/06 2300 0944 Duloxetine HCl 60 MG DAILY 10/30 1000 AC 11/05 PO 0944 Folic Acid 1 MG DAILY 10/30 1000 AC 11/05 PO 0944 Gabapentin 600 MG TID 10/30 1000 AC 11/05 PO 1618 Insulin Aspart 0 TIDAC 10/31 1200 AC 11/05 SC 1200 Insulin Detemir 14 UNITS DAILY 10/30 1000 AC 11/05 SC 0944 Lorazepam See Dose Q1P PRN 10/30 1400 AC 11/04 Insts (1) IV 1053 Magnesium Hydroxide 30 ML ONE PRN 11/01 1545 AC 11/04 PO 1738 Magnesium Oxide 400 MG ONE ONE 11/05 1115 DC 11/05 PO 11/05 1116 1200 Metoprolol Succinate 25 MG DAILY 11/03 1000 AC 11/05 PO 0944 Morphine Sulfate 30 MG Q12 11/05 1500 AC 11/05 PO 1516 Morphine Sulfate 4 MG Q6-PRN PRN 11/01 1600 AC 11/05 IV 1234 Multivitamins 1 TAB DAILY 10/30 1000 AC 11/05 PO 0946 Oxycodone HCl 15 MG Q4P PRN 11/05 1430 AC PO Polyethylene Glycol 17 GM DAILY 11/01 1544 AC 11/05 PO 0944 Potassium Chloride 40 MEQ ONCE ONE 11/05 1115 DC 11/05 PO 11/05 1116 1200 Senna/Docusate Sodium 1 TAB BID PRN 11/01 1545 AC 11/04 PO 1054 Tamsulosin HCl 0.4 MG DAILY 10/30 1000 AC 11/05 PO 0944 Tramadol HCl 50 MG Q6P PRN 11/01 0115 AC 11/03 PO 2122 Dose Instructions: (1)Lorazepam: See admin criteria Vital Signs & I&O Last 24 Hrs of Vitals and I&O: Vital Signs Date Time Temp Pulse Resp B/P B/P Pulse O2 O2 Flow FiO2 Mean Ox Delivery Rate 11/05 1459 94 Nasal 4.0L Cannula 11/05 1400 97.8 75 18 118/73 11/05 1200 97.8 76 16 105/69 11/05 1200 97 Nasal 4.0L Cannula 11/05 1000 96.9 87 17 117/76 11/05 0944 96.9 86 22 106/73 11/05 0944 96.9 86 22 106/73 11/05 0800 96.9 88 26 136/66 11/05 0800 96 Nasal 4.0L Cannula 11/05 0800 96.9 88 26 136/66 96 Nasal 4.0L Cannula 11/05 0600 97.6 92 17 127/75 11/05 0200 84 19 148/88 11/05 0000 97.2 89 20 122/80 11/05 0000 95 Nasal 4.0L Cannula 11/04 2300 97.2 89 20 122/80 95 Nasal 4.0L Cannula 11/05 1999 98.6 77 20 132/88 11/05 1999 94 Nasal 4.0L Cannula Intake & Output 11/05 1600 11/05 0800 11/05 0000 Intake Total 400 360 Output Total 5537 338 8902 Balance -565 -881 -2150 Intake, Oral 400 360 Number 1 2 Bowel Movements Output, Urine 6761 878 1778 Physical Exam General Appearance: increased respiratory distress with use of accessory muscles , alert, awake Head: atraumatic Respiratory: increased use of accessory muscles, wheezes and crackles heard throughout lung matias Cardiovascular: irregularly irregular Gastrointestinal: normal bowel sounds, soft, non-tender Back: normal inspection, normal range of motion Extremities: RUE Picc line, no erythema, LLE BKA, skin warm and dry Results Last 24 Hrs of Lab Results: Laboratory Tests 11/05/16 0500: Anion Gap 10, Estimated GFR 26 L, Glucose 131 H, Calcium 7.8 L, Phosphorus 4.1, Magnesium 1.7, Total Bilirubin 0.5, AST 35, ALT 39, Albumin 2.6 L, CBC w Diff NO MAN DIFF REQ, RBC 2.86 L, MCV 91.7, MCH 31.0, RDW 16.0 H, MPV 7.3 L, Gran % 73.7, Lymphocytes % 6.3 L, Monocytes % 16.7 H, Eosinophils % 3.2, Basophils % 0.1, Absolute Granulocytes 3.4, Absolute Lymphocytes 0.3 L, Absolute Monocytes 0.8 H, Absolute Eosinophils 0.1, Absolute Basophils 0, PUBS MCHC 33.8 Impression/Plan Impression/Plan Impression/Plan: 1. 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 The patient has recurrent hematuria in the setting of Kaiser catheter placement and the patient pulling on Kaiser catheter. 2. Acute kidney injury, superimposed on chronic disease, improving. 3. EtOH withdrawal, with history of withdrawal seizures. 4. Insulin-dependent diabetes. 5. UTI, on oral ciprofloxacin. 6. Treat in bud opacities left lower lobe, nonspecific. No evidence of active pneumonia. 7. Hypertension and hyperlipidemia. 8. History of AF, s/p ablation and maze procedure, currently in AF on AC as outpatient. 9. Mitral valve prolapse status post repair. 10. Multiple comorbidities including bladder cancer status post radiation therapy, autoimmune hemolytic anemia, Waldenstroms macroglobulinemia, history of endocarditis, and hx of hepatitis C. 11. Obstructive lung disease. 12. Respiratory distress, likely related to fluid overload, improved. Recommendations: * Continue diuresis/negative fluid balance as per cardiology. * Monitor strict I's and O's. * TRC for neb treatments to continue. * Replete electrolytes as necessary. * Follow up urology's recommendations. * Complete antibiotic course - 7 days total. * EtOH pathway and treatment. Monitor for withdrawal seizures. * Continue multivitamin, thiamine and folate. * Continue pain pathway - will need to confirm CMR in attempt to adjust medications for better pain control. * Continue insulin sliding scale. * Continue nebs/TRC/inhaler regimen. * Alps for DVT prophylaxis. No heparin due to bleeding. * PICC line still necessary for poor access. * Appreciate all consultants input.
--- NOTE | 2016-11-05 17:09 | Event Note ---
Event Note Event Note: S: Patient's Kaiser continues to be passing pink urine and clots noted. Placed a consultation for a callback through the urology service. B: Conversation had with the on-call urologist at 5:21 PM. A/R: Suggestion is continue irrigation by hand with catheter tip syringe. Avoid CBI for now. H&H to be monitored overnight. If patient does have increased hematuria with daniella blood consider consulting urology consult again. Resident made aware.
[2016-11-05 18:49] LABS: ABSOLUTE BASOPHIL COUNT 0 /CUMM (0.0-0.2); ABSOLUTE EOSINOPHIL COUNT 0.1 /CUMM (0.0-0.7); ABSOLUTE GRANULOCYTE CT 3.3 /CUMM (1.4-6.5); ABSOLUTE LYMPH COUNT 0.2 /CUMM (1.2-3.4); ABSOLUTE MONOCYTE COUNT 0.7 /CUMM (0.10-0.60); BASOPHIL % 0 % (0.0-2.0); GRANULOCYTE % 76.1 % (42.2-75.2); HEMATOCRIT 26.1 % (42-52); MEAN CORPUSCULAR HGB 30.9 PG (27.0-31.0); MEAN CORPUSCULAR HGB CONC 33.5 G/DL (33.0-37.0); MEAN CORPUSCULAR VOLUME 92.2 FL (80.0-94.0); MEAN PLATELET VOLUME 7.4 FL (7.4-10.4); PLATELET COUNT 176 /CUMM (130-400); RBC DISTRIBUTION WIDTH 15.7 % (11.5-14.5); RED BLOOD CELL CT 2.83 /CUMM (4.70-6.10); WHITE BLOOD CELL COUNT 4.3 /CUMM (4.8-10.8)
[2016-11-06] VITALS: BP 108/80
[2016-11-06 03:41] LABS: ABSOLUTE BASOPHIL COUNT 0 /CUMM (0.0-0.2); ABSOLUTE EOSINOPHIL COUNT 0.2 /CUMM (0.0-0.7); ABSOLUTE GRANULOCYTE CT 2.8 /CUMM (1.4-6.5); ABSOLUTE LYMPH COUNT 0.3 /CUMM (1.2-3.4); ABSOLUTE MONOCYTE COUNT 0.9 /CUMM (0.10-0.60); BASOPHIL % 0.3 % (0.0-2.0); EOSINOPHIL % 5.1 % (0-5); GRANULOCYTE % 66.3 % (42.2-75.2); HEMATOCRIT 25.4 % (42-52); MEAN CORPUSCULAR HGB 30.8 PG (27.0-31.0); MEAN CORPUSCULAR HGB CONC 33.6 G/DL (33.0-37.0); MEAN CORPUSCULAR VOLUME 91.6 FL (80.0-94.0); MEAN PLATELET VOLUME 7.1 FL (7.4-10.4); RBC DISTRIBUTION WIDTH 15.8 % (11.5-14.5); RED BLOOD CELL CT 2.78 /CUMM (4.70-6.10); WHITE BLOOD CELL COUNT 4.3 /CUMM (4.8-10.8)
[2016-11-06 03:59] LABS: PLATELET COUNT 202 /CUMM (130-400)
[2016-11-06 08:00] VITALS: BP 94/60
--- NOTE | 2016-11-06 09:12 | PN- Resident CRCU ---
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 Patient denied any lightheadedness, diaphoresis, excessive shortness of breath (his he is on 4 L oxygen saturating 97%)abdominal pain, chest pain, nausea, vomiting, fever or chills. Patient started to have flank hematuria yesterday, uro-consultation was obtained with recommendation for catheter tip irrigation, uro-consultation was obtained today with recommendation to restart and continue CBI. Patient blood pressure this morning was 90/60, metoprolol was held, will hold metoprolol and Flomax and repeat CBC at 5 PM this afternoon. 24 Hour Events: Temperature 96.8, MAXIMUM TEMPERATURE 98.5 Heart rate lowest 68, highest 93 A. fib Blood pressure lowest 87/57, highest 149/93 Despite rate 13 on 4 L nasal cannula saturating 97% Intake to 240, output 3015 Objective Vital Signs & I&O Last 8 Hrs of Vitals and I&O: Intake & Output 11/06 1600 Intake Total 1440 Output Total 500 Balance 940 Intake, Oral 1440 Output, Urine 500 Exam General Appearance: well developed/nourished, no apparent distress, alert Head: atraumatic, normal appearance Ears, Nose, Throat: normal pharynx, normal ENT inspection Neck: normal inspection, supple, full range of motion Respiratory: Bilateral decrease air entery with prolonged expiratory phase and diffuse wheeze and ronchi. Fine basal crackles. Cardiovascular: irregularly irregular Gastrointestinal: normal bowel sounds, soft, non-tender Extremities: normal inspection, normal capillary refill, normal range of motion, no edema Cranial Nerves: normal hearing, normal speech, PERRL Current Medications: Current Medications Sig/Avery Start time Last Medication Dose Route Stop Time Status Admin Acetaminophen 1,000 MG Q6H PRN 10/31 1500 AC 11/01 N/A 1 UNIT IV 0651 Albuterol Sulfate 3 ML Q4P PRN 11/01 2300 AC 11/04 INH 0845 Albuterol Sulfate 2 PUF Q4-6 PRN PRN 10/30 0930 AC 11/04 INH 0400 Atorvastatin Calcium 20 MG DAILY 10/30 1000 AC 11/06 PO 0859 Bisacodyl 5 MG DAILY 11/05 1000 AC 11/06 PO 0858 Bisacodyl 10 MG DAILY NEEDED PRN 11/04 1915 AC MS Budesonide/ 2 PUF BID 10/30 1000 AC 11/06 Formoterol Fumarate INH 0900 Chlordiazepoxide HCl 10 MG BID 11/02 2200 AC 11/06 PO 0900 Ciprofloxacin 500 MG DAILY 11/04 1000 AC 11/06 PO 11/06 2300 0859 Duloxetine HCl 60 MG DAILY 10/30 1000 AC 11/06 PO 0859 Folic Acid 1 MG DAILY 10/30 1000 AC 11/06 PO 0858 Gabapentin 600 MG TID 10/30 1000 AC 11/06 PO 1607 Insulin Aspart 0 TIDAC 10/31 1200 AC 11/06 SC 1607 Insulin Detemir 14 UNITS DAILY 10/30 1000 AC 11/06 SC 1011 Lorazepam See Dose Q1P PRN 10/30 1400 DC 11/04 Insts (1) IV 1053 Magnesium Hydroxide 30 ML ONE PRN 11/01 1545 AC 11/04 PO 1738 Magnesium Oxide 400 MG ONE ONE 11/06 0800 DC 11/06 PO 11/06 0801 0858 Metoprolol Succinate 25 MG DAILY 11/03 1000 DC 11/05 PO 0944 Morphine Sulfate 30 MG Q12 11/05 1500 AC 11/06 PO 0900 Morphine Sulfate 4 MG Q6-PRN PRN 11/01 1600 DC 11/05 IV 1234 Multivitamins 1 TAB DAILY 10/30 1000 AC 11/06 PO 0859 Oxycodone HCl 15 MG Q4P PRN 11/05 1430 AC 11/06 PO 1607 Polyethylene Glycol 17 GM DAILY 11/01 1544 AC 11/06 PO 0900 Senna/Docusate Sodium 1 TAB BID PRN 11/01 1545 AC 11/06 PO 0859 Tamsulosin HCl 0.4 MG DAILY 10/30 1000 DC 11/06 PO 0900 Tramadol HCl 50 MG Q6P PRN 11/01 0115 DC 11/03 PO 2122 Dose Instructions: (1)Lorazepam: See admin criteria Impression/Plan Impression/Problem List Impression: Mr. Ling 66-year-old male with extensive past medical history, was admitted for alcohol detox and was to found hematuria and dysuria. Patient had drop in hemoglobin 5.5 with hematuria with clots and was transferred to ICU for close monitoring. Problem list -Prostate cancer s/p radiation -Hepatitis C s/p interferon treatment -Alcohol abuse and opiate dependence -Diabetes mellitus -Hypertension and hyperlipidemia -COPD -Osteomyelitis s/p left below the knee amputation in May 2016 -Atrial fibrillation on Elequis -Mitral valve prolapse status post repair Respiratory -History of COPD not on home oxygen -Continue oxygen supplementation 4L, keep saturation above 92% -TRC, nebulizers -Patient had 2 doses of 40 mg Lasix on Monday with good urine output -We'll continue to monitor strict ins and outs Infectious disease -Urine culture positive for Escherichia coli -Ciprofloxacin oral to finish course of 7 days 11/06/16 -Monitor fever, leukocytosis -Upper respiratory and GI cultures are negative Cardiovascular -Patient had low blood pressure readings throughout the day today systolic and 90s, we discontinued metoprolol 25 mg and Flomax 0.4 mg -History of atrial fibrillation on eliquis -History of hypertension and hyperlipidemia -Continue atorvastatin 20 mg daily -Hold aspirin and Eliquis for now given active bleeding Hematology -Anemia of acute blood loss -H&H stable, with 3 check CBC at 5 PM this afternoon given hematuria -Urology recommendation was obtained today regarding recurrence of hematuria, recommendation to restart continuous bladder irrigation -Difficulty obtaining blood that cross and match patient's blood given antibodies -Patient received 5 units of blood, hemoglobin is stable around 8 -Hemoglobin more than 8 -Patient has history of prostate cancer status post radiation, hemorrhagic radiation cystitis is believed to be the cause of active bleeding anemia -Recommendations regarding the possibility of hyperbaric oxygen for hemorrhagic radiation cystitis -Recommendation to continue Kaiser catheter during weekend, possible voiding trial after weekend -Scrotal elevation Metabolic -History of diabetes -Continue Accu-Chek TIDAC, HS -NovoLog scale -Levemir 14 units daily -Discontinue sodium bicarbonate per nephrology recommendation Alimentary -Consistent carbohydrate 3 -Folic acid, thiamine, multivitamin Neurological -History of alcohol abuse and opioid dependence -Continue Librium to 10 mg twice a day -Lorazepam CIWA score -Gabapentin 600 mg daily -Cymbalta 60 mg daily DVT prophylaxis ALPS Code FULL Consultation urology, cardiology, nephrology Problem List: 1. Diabetes mellitus type 2 2. Prostate cancer 3. CKD (chronic kidney disease) 4. Gross hematuria Pain Ratin Tomorrow's Labs & Rationales: CBC, ICU bundle Plan DVT/Prophylaxis: mechanical
--- NOTE | 2016-11-06 10:09 | PN- CRCU ---
Subjective HPI/Critical Care Issues: The patient is awake and alert. He reports feeling improved overall. He continues to have ongoing pain at his lower extremity stump. The patient is on 4 L nasal cannula with saturations in the high 90s. He has excellent urine output. He remains afebrile. Objective Current Medications: Current Medications Sig/Avery Start time Last Medication Dose Route Stop Time Status Admin Acetaminophen 1,000 MG Q6H PRN 10/31 1500 AC 11/01 N/A 1 UNIT IV 0651 Albuterol Sulfate 3 ML Q4P PRN 11/01 2300 AC 11/04 INH 0845 Albuterol Sulfate 2 PUF Q4-6 PRN PRN 10/30 0930 AC 11/04 INH 0400 Alteplase, 2 MG ONE ONE 11/05 1245 DC 11/05 Recombinant IV 11/05 1246 1340 Atorvastatin Calcium 20 MG DAILY 10/30 1000 AC 11/06 PO 0859 Bisacodyl 5 MG DAILY 11/05 1000 AC 11/06 PO 0858 Bisacodyl 10 MG DAILY NEEDED PRN 11/04 1915 AC AK Budesonide/ 2 PUF BID 10/30 1000 AC 11/06 Formoterol Fumarate INH 0900 Chlordiazepoxide HCl 10 MG BID 11/02 2200 AC 11/06 PO 0900 Ciprofloxacin 500 MG DAILY 11/04 1000 AC 11/06 PO 11/06 2300 0859 Duloxetine HCl 60 MG DAILY 10/30 1000 AC 11/06 PO 0859 Folic Acid 1 MG DAILY 10/30 1000 AC 11/06 PO 0858 Gabapentin 600 MG TID 10/30 1000 AC 11/06 PO 0859 Insulin Aspart 0 TIDAC 10/31 1200 AC 11/05 SC 1200 Insulin Detemir 14 UNITS DAILY 10/30 1000 AC 11/05 SC 0944 Lorazepam See Dose Q1P PRN 10/30 1400 AC 11/04 Insts (1) IV 1053 Magnesium Hydroxide 30 ML ONE PRN 11/01 1545 AC 11/04 PO 1738 Magnesium Oxide 400 MG ONE ONE 11/06 0800 DC 11/06 PO 11/06 0801 0858 Magnesium Oxide 400 MG ONE ONE 11/05 1115 DC 11/05 PO 11/05 1116 1200 Metoprolol Succinate 25 MG DAILY 11/03 1000 DC 11/05 PO 0944 Morphine Sulfate 30 MG Q12 11/05 1500 AC 11/06 PO 0900 Morphine Sulfate 4 MG Q6-PRN PRN 11/01 1600 DC 11/05 IV 1234 Multivitamins 1 TAB DAILY 10/30 1000 AC 11/06 PO 0859 Oxycodone HCl 15 MG Q4P PRN 11/05 1430 AC PO Polyethylene Glycol 17 GM DAILY 11/01 1544 AC 11/06 PO 0900 Potassium Chloride 40 MEQ ONCE ONE 11/05 1115 DC 11/05 PO 11/05 1116 1200 Senna/Docusate Sodium 1 TAB BID PRN 11/01 1545 AC 11/06 PO 0859 Tamsulosin HCl 0.4 MG DAILY 10/30 1000 DC 11/06 PO 0900 Tramadol HCl 50 MG Q6P PRN 11/01 0115 DC 11/03 PO 2122 Dose Instructions: (1)Lorazepam: See admin criteria Vital Signs & I&O Last 24 Hrs of Vitals and I&O: Vital Signs Date Time Temp Pulse Resp B/P B/P Pulse O2 O2 Flow FiO2 Mean Ox Delivery Rate 11/06 0900 88 94/60 11/06 0900 88 94/60 11/06 0400 97 Nasal 4.0L Cannula 11/06 0000 96.9 74 13 108/80 97 Nasal 4.0L Cannula 11/06 0000 96 Nasal 4.0L Cannula 11/05 2000 97 Nasal 4.0L Cannula 11/05 1600 98 Nasal 4.0L Cannula 11/05 1600 97.0 74 19 110/68 98 Nasal 4.0L Cannula 11/05 1459 94 Nasal 4.0L Cannula 11/05 1400 97.8 75 18 118/73 11/05 1200 97.8 76 16 105/69 11/05 1200 97 Nasal 4.0L Cannula Intake & Output 11/06 1600 11/06 0800 11/06 0000 Intake Total 1330 Output Total 1100 Balance 230 Intake, IV 0 Intake, Oral 1240 Intake, Other 90 Number 0 Bowel Movements Output, Urine 1100 Physical Exam General Appearance: increased respiratory distress with use of accessory muscles , alert, awake Head: atraumatic Respiratory: increased use of accessory muscles, wheezes and crackles heard throughout lung matias Cardiovascular: irregularly irregular Gastrointestinal: normal bowel sounds, soft, non-tender Back: normal inspection, normal range of motion Extremities: RUE Picc line, no erythema, LLE BKA, skin warm and dry Results Last 24 Hrs of Lab Results: Laboratory Tests 11/06/16 0332: Anion Gap 10, Estimated GFR 30 L, Glucose 123 H, Calcium 7.8 L, Phosphorus 4.7 H, Magnesium 1.9, Total Bilirubin 0.3, AST 28, ALT 35, Albumin 2.5 L, CBC w Diff NO MAN DIFF REQ, RBC 2.78 L, MCV 91.6, MCH 30.8, RDW 15.8 H, MPV 7.1 L , Gran % 66.3, Lymphocytes % 8.1 L, Monocytes % 20.2 H, Eosinophils % 5.1 H, Basophils % 0.3, Absolute Granulocytes 2.8, Absolute Lymphocytes 0.3 L, Absolute Monocytes 0.9 H, Absolute Eosinophils 0.2, Absolute Basophils 0, PUBS MCHC 33.6 11/05/16 1800: CBC w Diff NO MAN DIFF REQ, RBC 2.83 L, MCV 92.2, MCH 30.9, RDW 15.7 H, MPV 7.4, Gran % 76.1 H, Lymphocytes % 4.3 L, Monocytes % 16.6 H, Eosinophils % 3.0, Basophils % 0 L, Absolute Granulocytes 3.3, Absolute Lymphocytes 0.2 L, Absolute Monocytes 0.7 H, Absolute Eosinophils 0.1, Absolute Basophils 0, PUBS MCHC 33.5 Last 24 Hrs of Micro Results: Urine positive for Escherichia coli. Impression/Plan Impression/Plan Impression/Plan: 1. 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 The patient has recurrent hematuria in the setting of Kaiser catheter placement and the patient pulling on Kaiser catheter. 2. Acute kidney injury, superimposed on chronic disease, improving. 3. EtOH withdrawal, with history of withdrawal seizures. 4. Insulin-dependent diabetes. 5. UTI, on oral ciprofloxacin. 6. Treat in bud opacities left lower lobe, nonspecific. No evidence of active pneumonia. 7. Hypertension and hyperlipidemia. 8. History of AF, s/p ablation and maze procedure, currently in AF on AC as outpatient. 9. Mitral valve prolapse status post repair. 10. Multiple comorbidities including bladder cancer status post radiation therapy, autoimmune hemolytic anemia, Waldenstroms macroglobulinemia, history of endocarditis, and hx of hepatitis C. 11. Obstructive lung disease. 12. Respiratory distress, likely related to fluid overload, improved. Recommendations: * Continue diuresis/negative fluid balance. * Monitor strict I's and O's. * TRC for neb treatments to continue. * Replete electrolytes as necessary. * CBI per urology. * Complete antibiotic course - 7 days total. * EtOH pathway and treatment. Monitor for withdrawal seizures. * Continue multivitamin, thiamine and folate. * Continue pain pathway. * Continue insulin sliding scale. * Continue nebs/TRC/inhaler regimen. * Alps for DVT prophylaxis. No heparin due to bleeding. * PICC line still necessary for poor access. * Appreciate all consultants input.
[2016-11-06 16:00] VITALS: BP 108/74
[2016-11-06 17:59] LABS: ABSOLUTE BASOPHIL COUNT 0 /CUMM (0.0-0.2); ABSOLUTE EOSINOPHIL COUNT 0.2 /CUMM (0.0-0.7); ABSOLUTE GRANULOCYTE CT 3.5 /CUMM (1.4-6.5); ABSOLUTE LYMPH COUNT 0.3 /CUMM (1.2-3.4); ABSOLUTE MONOCYTE COUNT 0.7 /CUMM (0.10-0.60); BASOPHIL % 0 % (0.0-2.0); EOSINOPHIL % 4.7 % (0-5); GRANULOCYTE % 73.3 % (42.2-75.2); HEMATOCRIT 26.9 % (42-52); MEAN CORPUSCULAR HGB 30.3 PG (27.0-31.0); MEAN CORPUSCULAR HGB CONC 33.3 G/DL (33.0-37.0); MEAN CORPUSCULAR VOLUME 90.9 FL (80.0-94.0); MEAN PLATELET VOLUME 7.2 FL (7.4-10.4); PLATELET COUNT 242 /CUMM (130-400); RBC DISTRIBUTION WIDTH 15.6 % (11.5-14.5); RED BLOOD CELL CT 2.95 /CUMM (4.70-6.10); WHITE BLOOD CELL COUNT 4.7 /CUMM (4.8-10.8)
[2016-11-07] VITALS: BP 140/88
[2016-11-07 05:06] LABS: ABSOLUTE BASOPHIL COUNT 0 /CUMM (0.0-0.2); ABSOLUTE EOSINOPHIL COUNT 0.2 /CUMM (0.0-0.7); ABSOLUTE GRANULOCYTE CT 4.1 /CUMM (1.4-6.5); ABSOLUTE LYMPH COUNT 0.4 /CUMM (1.2-3.4); ABSOLUTE MONOCYTE COUNT 0.8 /CUMM (0.10-0.60); BASOPHIL % 0.8 % (0.0-2.0); EOSINOPHIL % 3.8 % (0-5); GRANULOCYTE % 74.3 % (42.2-75.2); HEMATOCRIT 25.3 % (42-52); MEAN CORPUSCULAR HGB 30.3 PG (27.0-31.0); MEAN CORPUSCULAR VOLUME 91.9 FL (80.0-94.0); PLATELET COUNT 239 /CUMM (130-400); RBC DISTRIBUTION WIDTH 15.8 % (11.5-14.5); RED BLOOD CELL CT 2.76 /CUMM (4.70-6.10); WHITE BLOOD CELL COUNT 5.5 /CUMM (4.8-10.8)
--- NOTE | 2016-11-07 07:08 | PN- Resident CRCU ---
See Addendum Subjective HPI/CRCU Issues: Patient was seen and examined this morning, he is alert oriented 3, no acute distress, didn't report any new complaint. No overnight events reported by the nurse or the patient. Patient continued to have hematuria, on CBI yielded some clots. 24 Hour Events: Temperature 96.5, MAXIMUM TEMPERATURE 97.4 Pulse lowest 66, highest 89 A. fib Blood pressure lowest 93/61, highest 146/86 On 4 L oxygen saturating 96% Intake 2340, output 2575 Overnight EKG evidence revealed several episodes of V. tach Objective Vital Signs & I&O Last 8 Hrs of Vitals and I&O: 111 Exam General Appearance: no apparent distress, alert, awake Head: atraumatic, normal appearance Ears, Nose, Throat: normal pharynx, normal ENT inspection Neck: normal inspection, supple, full range of motion Respiratory: normal breath sounds, chest non-tender, no respiratory distress Cardiovascular: irregularly irregular Gastrointestinal: normal bowel sounds, soft, non-tender Extremities: normal inspection, normal capillary refill, normal range of motion, no edema Cranial Nerves: normal hearing, normal speech, PERRL Skin: intact, normal color, warm/dry Current Medications: Current Medications Sig/Avery Start time Last Medication Dose Route Stop Time Status Admin Acetaminophen 1,000 MG Q6H PRN 10/31 1500 AC 11/01 N/A 1 UNIT IV 0651 Albuterol Sulfate 3 ML Q4P PRN 11/01 2300 AC 11/04 INH 0845 Albuterol Sulfate 2 PUF Q4-6 PRN PRN 10/30 0930 AC 11/04 INH 0400 Atorvastatin Calcium 20 MG DAILY 10/30 1000 AC 11/07 PO 1008 Bisacodyl 5 MG DAILY 11/05 1000 AC 11/07 PO 1008 Bisacodyl 10 MG DAILY NEEDED PRN 11/04 1915 AC LA Budesonide/ 2 PUF BID 10/30 1000 AC 11/07 Formoterol Fumarate INH 1009 Chlordiazepoxide HCl 10 MG BID 11/02 2200 AC 11/07 PO 1008 Ciprofloxacin 500 MG DAILY 11/04 1000 DC 11/06 PO 11/06 2300 0859 Duloxetine HCl 60 MG DAILY 10/30 1000 AC 11/07 PO 1008 Folic Acid 1 MG DAILY 10/30 1000 AC 11/07 PO 1008 Gabapentin 600 MG TID 10/30 1000 AC 11/07 PO 1008 Insulin Aspart 0 TIDAC 10/31 1200 AC 11/06 SC 1607 Insulin Detemir 14 UNITS DAILY 10/30 1000 AC 11/07 SC 1012 Lorazepam See Dose Q1P PRN 10/30 1400 DC 11/04 Insts (1) IV 1053 Magnesium Hydroxide 30 ML ONE PRN 11/01 1545 AC 11/04 PO 1738 Morphine Sulfate 30 MG Q12 11/05 1500 AC 11/07 PO 1008 Multivitamins 1 TAB DAILY 10/30 1000 AC 11/07 PO 1008 Oxycodone HCl 15 MG Q4P PRN 11/05 1430 AC 11/06 PO 1607 Polyethylene Glycol 17 GM DAILY 11/01 1544 AC 11/07 PO 1008 Senna/Docusate Sodium 1 TAB BID PRN 11/01 1545 AC 11/06 PO 0859 Dose Instructions: (1)Lorazepam: See admin criteria Impression/Plan Impression/Problem List Impression: Mr. Ling 66-year-old male with extensive past medical history, was admitted for alcohol detox and was to found hematuria and dysuria. Patient had drop in hemoglobin 5.5 with hematuria with clots and was transferred to ICU for close monitoring. Problem list -Prostate cancer s/p radiation -Hepatitis C s/p interferon treatment -Alcohol abuse and opiate dependence -Diabetes mellitus -Hypertension and hyperlipidemia -COPD -Osteomyelitis s/p left below the knee amputation in May 2016 -Atrial fibrillation on Elequis -Mitral valve prolapse status post repair Respiratory -History of COPD not on home oxygen -Continue oxygen supplementation 4L, keep saturation above 92% -TRC, nebulizers -Patient had 2 doses of 40 mg Lasix on Monday with good urine output -We'll continue to monitor strict ins and outs Infectious disease -Urine culture positive for Escherichia coli -Patient received last dose of ciprofloxacin yesterday, finished course of 7 days 11/06/16 -Monitor fever, leukocytosis -Upper respiratory and GI cultures are negative Cardiovascular -Metoprolol 25 mg and Flomax 0.4 mg was discontinued yesterday due to low blood pressure readings -Over the last 24 hours maximum bleeding. Pressure was 146/86, maximum heart rate of 18 9 A. fib -We'll continue to monitor and restart medication as needed -History of atrial fibrillation on eliquis on hold for hematuria -History of hypertension and hyperlipidemia -Continue atorvastatin 20 mg daily -Hold aspirin and Eliquis for now given active bleeding Hematology -Anemia of acute blood loss -H&H stable, with 3 check CBC at 5 PM this afternoon given hematuria -Urology recommendation was obtained today regarding recurrence of hematuria, recommendation to restart continuous bladder irrigation, manual irrigation of Kaiser as needed -Difficulty obtaining blood that cross and match patient's blood given antibodies -Patient received 5 units of blood, hemoglobin is stable around 8 -Hemoglobin more than 8, hemoglobin is stable -Patient has history of prostate cancer status post radiation, hemorrhagic radiation cystitis is believed to be the cause of active bleeding anemia -Recommendations regarding the possibility of hyperbaric oxygen for hemorrhagic radiation cystitis -Scrotal elevation Metabolic -History of diabetes -Continue Accu-Chek TIDAC, HS -NovoLog scale -Levemir 14 units daily -Discontinue sodium bicarbonate per nephrology recommendation Alimentary -Consistent carbohydrate 3 -Folic acid, thiamine, multivitamin Neurological -History of alcohol abuse and opioid dependence -Continue Librium to 10 mg twice a day -Lorazepam CIWA score -Gabapentin 600 mg daily -Cymbalta 60 mg daily DVT prophylaxis ALPS Code FULL Consultation urology, cardiology, nephrology Okay to downgrade to telemetry floor Problem List: 1. Diabetes mellitus 2. Gross hematuria 3. History of prostate cancer 4. CKD (chronic kidney disease) Pain Ratin Tomorrow's Labs & Rationales: CBC, ICU bundle Plan DVT/Prophylaxis: mechanical
[2016-11-07 08:00] VITALS: BP 112/80
--- NOTE | 2016-11-07 08:09 | PN- Urology ---
Subjective Subjective: No acute distress Objective Vital Signs and I&Os Vital Signs Date Time Temp Pulse Resp B/P B/P Pulse O2 O2 Flow FiO2 Mean Ox Delivery Rate 11/07 0400 98 Nasal 4.0L Cannula 11/07 0000 97 Nasal 4.0L Cannula 11/07 0000 97.1 86 20 140/88 97 Nasal 4.0L Cannula 11/06 2000 95 Nasal 4.0L Cannula 11/06 1600 Nasal 4.0L Cannula 11/06 1600 97.2 82 22 108/74 97 Nasal 4.0L Cannula 11/06 1200 Nasal 4.0L Cannula 11/06 0900 88 94/60 11/06 0900 88 94/60 Intake & Output 11/07 0800 11/07 0000 11/06 1600 11/06 0800 11/06 0000 Intake Total 100 247 1501 1330 Output Total 325 0981 499 2907 Balance -25 -1150 940 230 Intake, IV 0 Intake, Oral 243 884 4483 1240 Intake, Other 90 Number 1 0 Bowel Movements Output, Urine 325 9490 747 8107 Sitting up eating breakfast Abd: soft and non tender Genitalia: 3-way king in place. CBI running a slow to moderate rate. Drainage is light pink. Laboratory Tests 11/07 11/06 0400 1650 Chemistry Sodium (137 - 145 mmol/L) 138 Potassium (3.5 - 5.1 mmol/L) 4.6 Chloride (98 - 107 mmol/L) 101 Carbon Dioxide (22 - 30 mmol/L) 24 Anion Gap (5 - 16) 12 BUN (9 - 20 mg/dL) 67 H Creatinine (0.7 - 1.2 mg/dL) 2.3 H Estimated GFR (>60 ml/min) 29 L Glucose (65 - 99 mg/dL) 137 H Calcium (8.4 - 10.2 mg/dL) 8.1 L Phosphorus (2.5 - 4.5 mg/dL) 5.4 H Magnesium (1.6 - 2.3 mg/dL) 2.0 Total Bilirubin (0.2 - 1.3 mg/dL) 0.3 AST (17 - 59 U/L) 17 ALT (21 - 72 U/L) 29 Albumin (3.5 - 5.0 g/dL) 2.6 L Hematology CBC w Diff NO MAN DIFF REQ NO MAN DIFF REQ WBC (4.8 - 10.8 /CUMM) 5.5 4.7 L RBC (4.70 - 6.10 /CUMM) 2.76 L 2.95 L Hgb (14.0 - 18.0 G/DL) 8.4 L 9.0 L Hct (42 - 52 %) 25.3 L 26.9 L MCV (80.0 - 94.0 FL) 91.9 90.9 MCH (27.0 - 31.0 PG) 30.3 30.3 RDW (11.5 - 14.5 %) 15.8 H 15.6 H Plt Count (130 - 400 /CUMM) 239 242 MPV (7.4 - 10.4 FL) 7.0 L 7.2 L Gran % (42.2 - 75.2 %) 74.3 73.3 Lymphocytes % (20.5 - 51.1 %) 7.1 L 6.4 L Monocytes % (1.7 - 9.3 %) 14.0 H 15.6 H Eosinophils % (0 - 5 %) 3.8 4.7 Basophils % (0.0 - 2.0 %) 0.8 0 L Absolute Granulocytes (1.4 - 6.5 /CUMM) 4.1 3.5 Absolute Lymphocytes (1.2 - 3.4 /CUMM) 0.4 L 0.3 L Absolute Monocytes (0.10 - 0.60 /CUMM) 0.8 H 0.7 H Absolute Eosinophils (0.0 - 0.7 /CUMM) 0.2 0.2 Absolute Basophils (0.0 - 0.2 /CUMM) 0 0 PUBS MCHC (33.0 - 37.0 G/DL) 33.0 33.3 Hct is essentially stable Assessment/Plan Assessment/Plan Imp: 1. Gross hematuria likely due to radiation cystitis 2. s/p cysto and clot evacuation with fulgeration of bleeders on 11/01/16 3. Probable hypotonic bladder secondary to DM Plan: 1. Continue slow CBI. May try to gradually decrease rate in drainage does not get bloodier 2. Would repeat urine C&S 3. If hematuria does not resolve in next couple of days consider asking Dr Mccall to see about hyperbaric oxygen while an inpatient until bleeding lessens and allows discontinuation of CBI 4. Manually irrigate king prn
--- NOTE | 2016-11-07 09:07 | PN- CRCU ---
Subjective HPI/Critical Care Issues: The patient is awake and alert. He reports feeling significantly improved overall. He was restarted on CBI for recurrent hematuria. Remains on 4 L nasal cannula with saturations in the high 90s. He has adequate urine output. The patient remains afebrile. Objective Current Medications: Current Medications Sig/Avery Start time Last Medication Dose Route Stop Time Status Admin Acetaminophen 1,000 MG Q6H PRN 10/31 1500 AC 11/01 N/A 1 UNIT IV 0651 Albuterol Sulfate 3 ML Q4P PRN 11/01 2300 AC 11/04 INH 0845 Albuterol Sulfate 2 PUF Q4-6 PRN PRN 10/30 0930 AC 11/04 INH 0400 Atorvastatin Calcium 20 MG DAILY 10/30 1000 AC 11/06 PO 0859 Bisacodyl 5 MG DAILY 11/05 1000 AC 11/06 PO 0858 Bisacodyl 10 MG DAILY NEEDED PRN 11/04 1915 AC WI Budesonide/ 2 PUF BID 10/30 1000 AC 11/06 Formoterol Fumarate INH 2224 Chlordiazepoxide HCl 10 MG BID 11/02 2200 AC 11/06 PO 2223 Ciprofloxacin 500 MG DAILY 11/04 1000 DC 11/06 PO 11/06 2300 0859 Duloxetine HCl 60 MG DAILY 10/30 1000 AC 11/06 PO 0859 Folic Acid 1 MG DAILY 10/30 1000 AC 11/06 PO 0858 Gabapentin 600 MG TID 10/30 1000 AC 11/06 PO 2222 Insulin Aspart 0 TIDAC 10/31 1200 AC 11/06 SC 1607 Insulin Detemir 14 UNITS DAILY 10/30 1000 AC 11/06 SC 1011 Lorazepam See Dose Q1P PRN 10/30 1400 DC 11/04 Insts (1) IV 1053 Magnesium Hydroxide 30 ML ONE PRN 11/01 1545 AC 11/04 PO 1738 Metoprolol Succinate 25 MG DAILY 11/03 1000 DC 11/05 PO 0944 Morphine Sulfate 30 MG Q12 11/05 1500 AC 11/06 PO 2223 Multivitamins 1 TAB DAILY 10/30 1000 AC 11/06 PO 0859 Oxycodone HCl 15 MG Q4P PRN 11/05 1430 AC 11/06 PO 1607 Polyethylene Glycol 17 GM DAILY 11/01 1544 AC 11/06 PO 0900 Senna/Docusate Sodium 1 TAB BID PRN 11/01 1545 AC 11/06 PO 0859 Tamsulosin HCl 0.4 MG DAILY 10/30 1000 DC 11/06 PO 0900 Dose Instructions: (1)Lorazepam: See admin criteria Vital Signs & I&O Last 24 Hrs of Vitals and I&O: Vital Signs Date Time Temp Pulse Resp B/P B/P Pulse O2 O2 Flow FiO2 Mean Ox Delivery Rate 11/07 0400 98 Nasal 4.0L Cannula 11/07 0000 97 Nasal 4.0L Cannula 11/07 0000 97.1 86 20 140/88 97 Nasal 4.0L Cannula 11/07 1999 95 Nasal 4.0L Cannula 11/07 1599 Nasal 4.0L Cannula 11/07 1599 97.2 82 22 108/74 97 Nasal 4.0L Cannula 11/06 1200 Nasal 4.0L Cannula Intake & Output 11/07 1600 11/07 0800 11/07 0000 Intake Total 300 600 Output Total 325 1750 Balance -25 -1150 Intake, Oral 300 600 Number 1 Bowel Movements Output, Urine 325 1750 Physical Exam General Appearance: increased respiratory distress with use of accessory muscles , alert, awake Head: atraumatic Respiratory: increased use of accessory muscles, wheezes and crackles heard throughout lung matias Cardiovascular: irregularly irregular Gastrointestinal: normal bowel sounds, soft, non-tender Back: normal inspection, normal range of motion Extremities: RUE Picc line, no erythema, LLE BKA, skin warm and dry Results Last 24 Hrs of Lab Results: Laboratory Tests 11/07/16 0400: Anion Gap 12, Estimated GFR 29 L, Glucose 137 H, Calcium 8.1 L, Phosphorus 5.4 H, Magnesium 2.0, Total Bilirubin 0.3, AST 17, ALT 29, Albumin 2.6 L, CBC w Diff NO MAN DIFF REQ, RBC 2.76 L, MCV 91.9, MCH 30.3, RDW 15.8 H, MPV 7.0 L , Gran % 74.3, Lymphocytes % 7.1 L, Monocytes % 14.0 H, Eosinophils % 3.8, Basophils % 0.8, Absolute Granulocytes 4.1, Absolute Lymphocytes 0.4 L, Absolute Monocytes 0.8 H, Absolute Eosinophils 0.2, Absolute Basophils 0, PUBS MCHC 33.0 11/06/16 1650: CBC w Diff NO MAN DIFF REQ, RBC 2.95 L, MCV 90.9, MCH 30.3, RDW 15.6 H, MPV 7.2 L, Gran % 73.3, Lymphocytes % 6.4 L, Monocytes % 15.6 H, Eosinophils % 4.7, Basophils % 0 L, Absolute Granulocytes 3.5, Absolute Lymphocytes 0.3 L, Absolute Monocytes 0.7 H, Absolute Eosinophils 0.2, Absolute Basophils 0, PUBS MCHC 33.3 Impression/Plan Impression/Plan Impression/Plan: 1. 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 The patient has recurrent hematuria in the setting of Kaiser catheter placement and the patient pulling on Kaiser catheter. 2. Acute kidney injury, superimposed on chronic disease, improving. 3. EtOH withdrawal, with history of withdrawal seizures. 4. Insulin-dependent diabetes. 5. UTI, on oral ciprofloxacin. 6. Treat in bud opacities left lower lobe, nonspecific. No evidence of active pneumonia. 7. Hypertension and hyperlipidemia. 8. History of AF, s/p ablation and maze procedure, currently in AF on AC as outpatient. 9. Mitral valve prolapse status post repair. 10. Multiple comorbidities including bladder cancer status post radiation therapy, autoimmune hemolytic anemia, Waldenstroms macroglobulinemia, history of endocarditis, and hx of hepatitis C. 11. Obstructive lung disease. 12. Respiratory distress, likely related to fluid overload, improved. Recommendations: * Continue diuresis/negative fluid balance. * Monitor strict I's and O's. * TRC for neb treatments to continue. * Replete electrolytes as necessary. * CBI per urology. * EtOH pathway and treatment. Monitor for withdrawal seizures. * Continue multivitamin, thiamine and folate. * Continue pain pathway. * Continue insulin sliding scale. * Continue nebs/TRC/inhaler regimen. * Alps for DVT prophylaxis. No heparin due to bleeding. * PICC line still necessary for poor access. * Downgrade to telemetry.
--- NOTE | 2016-11-07 14:08 | Transfer of Care Summary ---
Hospital Course Course Hospital Course: Mr. Ling is a 66-year-old male with past medical history significant for atrial fibrillation refractory to cardioversion intially on coumadin which was stopped due to GI bleed, mitral regurgitation with prolapse s/p mitral valve repair with a Maze procedure (November), MRSA bacteremia, hepatitis C s/p treatment, opiate dependence, diabetes, left leg below-knee amputation, alcohol overuse, alcohol withdrawal seizures, GI bleed, infective endocarditis, MRSA bacteremia, who presented to the ED on 10/29/2016 with chief complaint of alcohol detox. On admission, patient had urinary complaint (dysuria and recurrent gross hematuria), after attempts for King catheterization in the ED, patient started to have scant amounts of blood at urinary meatus. Patient was admitted initially to general medical floor for alcohol detoxification and management of urinary complaints. Urology consultation was obtained, 3 way king catheter was inserted with recommendation for CBI. On 11/02/16 Patient had a drop in hemoglobin 5.5 due to anemia of acute blood loss (hematuria with clots) and was transferred to ICU for close monitoring. Patient was managed in ICU for the following medical issues: -Prostate cancer s/p radiation -Hepatitis C s/p interferon treatment -Alcohol abuse and opiate dependence -Diabetes mellitus -Hypertension and hyperlipidemia -COPD -Osteomyelitis s/p left below the knee amputation in May 2016 -Atrial fibrillation on Elequis -Mitral valve prolapse status post repair Hematology -Anemia of acute blood loss. -On 11/01, H&H was 5.5/16.3, patient was hypotensive and dizzy, was transferred to ICU for close monitoring, blood transfusion was an issue given that patient has antibodies and needs blood bag from [place], eventually patient received 6 units of blood, hemoglobin posttransfusion was 8.3. -H&H remained stable despite hematuria. -Keep hemoglobin more than 8. -Patient has history of prostate cancer status post radiation, hemorrhagic radiation cystitis is believed to be the cause of active bleeding anemia. -Recommendations regarding the possibility of hyperbaric oxygen for hemorrhagic radiation cystitis. Urology -Patient has history of prostate cancer status post radiation. On admission, patient reported history of dysuria and recurrent hematuria. In ED, multiple attempts to place King catheter failed and patient experienced scant amount of blood at urinary meatus for which urology consultation was obtained with placement of 3 way King catheter, continuous irrigation of blood revealed large amount of blood with clots. Patient had cystoscopy on 11/01/16 showed massive blood clot in the bladder, diffuse oozing from bladder mucosa with most of the bleeding at the 12 o'clock position just inside the bladder neck. 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 -On 11/03/16, CBI was discontinued as urine cleared up, hemoglobin remained stable. 2 days later and after reports of King catheter manipulation by patient, gross hematuria restarted and we restarted CBI. 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 -Recommendations regarding the possibility of hyperbaric oxygen for hemorrhagic radiation cystitis if gross hematuria persist. -Recommendation for scrotal elevation and manual irrigation of King catheter as necessary. -Urine culture positive for Escherichia coli, patient finished course of ciprofloxacin of 7 days, last dose 11/06/16. Respiratory -Patient has history of COPD not on home oxygen, after blood transfusion he started to complain of slight shortness of breath, chest x-ray was obtained and revealed volume overload, patient received IV Lasix and was placed on 4 L oxygen -- improved -- Cardiovascular -History of atrial fibrillation on eliquis on hold for hematuria. -History of hypertension on Metoprolol 25 mg and hyperlipidemia atorvastatin 20 mg. -On 11/06, patient had low blood pressure readings, systolic in the 90s, Metoprolol and Flomax were discontinued. -Over the last 24 hours maximum BP was 146/86, maximum heart rate of 89 A. fib, will restart metoprolol at 6.25 twice a day, continue hold Flomax and restart as blood pressure allows. -Hold aspirin and Eliquis for active bleeding. Metabolic -History of diabetes, Accu-Chek, NovoLog sliding scale medium dose and Levemir 14 units daily. -Nephro consultation was obtained given worsening kidney function and metabolic acidosis with normal anion gap, patient received oral sodium bicarbonate, was discontinued after bicarbonate level improved. Alimentary -Consistent carbohydrate 3. -Folic acid, thiamine, multivitamin. Neurological -History of alcohol abuse and opioid dependence. -Continue Librium to 10 mg twice a day. -Lorazepam CIWA score. -Gabapentin 600 mg daily. -Cymbalta 60 mg daily. DVT prophylaxis ALPS Code FULL Consultation urology, cardiology, nephrology Assessment/Plan: Please see above
[2016-11-07 16:00] VITALS: BP 110/82
[2016-11-07 20:04] LABS: ABSOLUTE BASOPHIL COUNT 0 /CUMM (0.0-0.2); ABSOLUTE EOSINOPHIL COUNT 0.2 /CUMM (0.0-0.7); ABSOLUTE GRANULOCYTE CT 3.5 /CUMM (1.4-6.5); ABSOLUTE LYMPH COUNT 0.4 /CUMM (1.2-3.4); ABSOLUTE MONOCYTE COUNT 0.6 /CUMM (0.10-0.60); BASOPHIL % 0.1 % (0.0-2.0); EOSINOPHIL % 4.4 % (0-5); GRANULOCYTE % 74.7 % (42.2-75.2); HEMATOCRIT 24.9 % (42-52); MEAN CORPUSCULAR HGB 30.1 PG (27.0-31.0); MEAN CORPUSCULAR HGB CONC 33.2 G/DL (33.0-37.0); MEAN CORPUSCULAR VOLUME 90.8 FL (80.0-94.0); MEAN PLATELET VOLUME 6.6 FL (7.4-10.4); PLATELET COUNT 279 /CUMM (130-400); RBC DISTRIBUTION WIDTH 15.6 % (11.5-14.5); RED BLOOD CELL CT 2.74 /CUMM (4.70-6.10); WHITE BLOOD CELL COUNT 4.6 /CUMM (4.8-10.8)
[2016-11-07 23:54] VITALS: BP 164/92
--- NOTE | 2016-11-08 07:09 | PN- Urology ---
Subjective Subjective: No acute distress Objective Vital Signs and I&Os Vital Signs Date Time Temp Pulse Resp B/P B/P Pulse O2 O2 Flow FiO2 Mean Ox Delivery Rate 11/08 0000 Nasal 2.0L Cannula 11/07 2354 97.5 78 20 164/92 96 Nasal Cannula 11/07 2054 90 11/07 1906 95 Nasal 2.0L Cannula 11/07 1650 97.3 83 20 110/82 11/07 1600 95 Nasal 2.0L Cannula 11/07 1600 97.5 83 22 110/82 95 Nasal 2.0L Cannula 11/07 1248 94 Room Air 11/07 0800 98 Nasal 4.0L Cannula 11/07 08 97.9 94 22 112/80 98 Nasal 4.0L Cannula Intake & Output 11/08 0800 11/08 0000 11/07 1600 11/07 0800 11/07 0000 11/06 1600 Intake Total 250 870 350 454 513 7946 Output Total 0192 101 7385 500 Balance 250 870 - 940 Intake, IV 10 10 Intake, Oral 240 860 350 516 629 2670 Number 1 1 Bowel Movements Output, Urine 0202 345 8956 500 Back: no CVA tenderness Abd: soft and non tender Genitalia: 3-way king in place. CBI running at moderate rate with dark pink drainage Laboratory Tests 11/08 11/07 0530 1940 Chemistry Sodium Pending Potassium Pending Chloride Pending Carbon Dioxide Pending Anion Gap Pending BUN Pending Creatinine Pending Glucose Pending Calcium Pending Phosphorus Pending Magnesium Pending Total Bilirubin Pending AST Pending ALT Pending Albumin Pending Hematology CBC w Diff Pending NO MAN DIFF REQ WBC (4.8 - 10.8 /CUMM) Pending 4.6 L RBC (4.70 - 6.10 /CUMM) Pending 2.74 L Hgb (14.0 - 18.0 G/DL) Pending 8.3 L Hct (42 - 52 %) Pending 24.9 L MCV (80.0 - 94.0 FL) Pending 90.8 MCH (27.0 - 31.0 PG) Pending 30.1 RDW (11.5 - 14.5 %) Pending 15.6 H Plt Count (130 - 400 /CUMM) Pending 279 MPV (7.4 - 10.4 FL) Pending 6.6 L Gran % (42.2 - 75.2 %) 74.7 Lymphocytes % (20.5 - 51.1 %) 8.3 L Monocytes % (1.7 - 9.3 %) 12.5 H Eosinophils % (0 - 5 %) 4.4 Basophils % (0.0 - 2.0 %) 0.1 Absolute Granulocytes (1.4 - 6.5 /CUMM) 3.5 Absolute Lymphocytes (1.2 - 3.4 /CUMM) 0.4 L Absolute Monocytes (0.10 - 0.60 /CUMM) 0.6 Absolute Eosinophils (0.0 - 0.7 /CUMM) 0.2 Absolute Basophils (0.0 - 0.2 /CUMM) 0 PUBS MCHC (33.0 - 37.0 G/DL) Pending 33.2 0515 1015 Urines Urine Color (YEL,AMB,STR) BLDY H Urine Clarity (CLEAR) HAZY H Urine pH (5.0 - 8.0) 6.0 Ur Specific [place] (1.001 - 1.035) 1.010 Urine Protein (NEG,<30 MG/DL) 100 H Urine Ketones (NEG) NEG Urine Nitrite (NEG) POS H Urine Bilirubin (NEG) NEG Urine Urobilinogen (0.1 - 1.0 EU/dl) 0.2 Ur Leukocyte Esterase (NEG) TRACE H Ur Microscopic SEDIMENT EXAMINED Urine RBC (0 - 5 /HPF) PACKD H Urine WBC (0 - 2 /HPF) RARE Urine Hemoglobin (NEG) LARGE H Urine Glucose (N MG/DL) NEG Assessment/Plan Assessment/Plan Imp: 1. Gross hematuria. Likely due to radiation cystitis 2. s/p cysto, clot evacuation and fulgeration. Hematuria improved but continues 3. hx of prostate ca Plan: 1. Continue CBI 2. f/u urine culture 3. Would ask Dr Mccall to see about possible hyperbaric oxygen therapy
[2016-11-08 08:04] LABS: ABSOLUTE BASOPHIL COUNT 0 /CUMM (0.0-0.2); ABSOLUTE EOSINOPHIL COUNT 0.2 /CUMM (0.0-0.7); ABSOLUTE GRANULOCYTE CT 4.8 /CUMM (1.4-6.5); ABSOLUTE LYMPH COUNT 0.4 /CUMM (1.2-3.4); ABSOLUTE MONOCYTE COUNT 0.6 /CUMM (0.10-0.60); BASOPHIL % 0.1 % (0.0-2.0); EOSINOPHIL % 2.9 % (0-5); GRANULOCYTE % 80.3 % (42.2-75.2); HEMATOCRIT 24.6 % (42-52); MEAN CORPUSCULAR HGB 30.7 PG (27.0-31.0); MEAN CORPUSCULAR HGB CONC 33.7 G/DL (33.0-37.0); MEAN CORPUSCULAR VOLUME 91.2 FL (80.0-94.0); MEAN PLATELET VOLUME 6.9 FL (7.4-10.4); PLATELET COUNT 285 /CUMM (130-400); RBC DISTRIBUTION WIDTH 15.7 % (11.5-14.5)
[2016-11-08 08:12] VITALS: BP 124/62
--- NOTE | 2016-11-08 10:43 | PN- Housestaff ---
See Addendum Subjective Follow-up For: 1.Alcohol detox 2.Hematuria Tele-Events Since Last Visit: Atrial fibrillation, heart rate 65-86. Patient had bradycardia down to 49 Subjective: Afebrile, hemodynamically stable, no acute overnight reported. Patient denies any current complaints. There is a gross hematuria on the [employer] bag. Review of Systems Constitutional: Reports: no symptoms. Objective Last 24 Hrs of Vital Signs/I&O Vital Signs Date Time Temp Pulse Resp B/P B/P Pulse O2 O2 Flow FiO2 Mean Ox Delivery Rate 11/08 1616 97.7 88 18 144/82 94 11/08 1207 92 Room Air 11/08 0913 78 124/62 11/08 0812 97.7 78 20 124/62 93 Nasal 2.0L Cannula 11/08 0800 Nasal 2.0L Cannula 11/08 0000 Nasal 2.0L Cannula 11/07 2354 97.5 78 20 164/92 96 Nasal Cannula 11/07 2054 90 11/07 1906 95 Nasal 2.0L Cannula Intake & Output 11/08 1600 11/08 0800 11/08 0000 Intake Total 480 250 870 Output Total 1150 Balance -670 250 870 Intake, IV 10 10 Intake, Oral 480 240 860 Number 1 1 Bowel Movements Output, Urine 1150 Physical Exam General Appearance: Alert, Oriented X3, Cooperative HEENT: Atraumatic, PERRLA, EOMI, Mucous Membr. moist/pink Cardiovascular: Normal S1, Normal S2, No Murmurs, irregular Lungs: decrease air entry R>L Abdomen: Normal Bowel Sounds, Soft, No Tenderness Extremities: No Clubbing, No Cyanosis, No Edema, left BKA Assessment/Plan Assessment: 66-year-old gentleman with past medical history of prostate cancer status post radiation hepatitis C status post treatment, hypertension, diabetes, infective endocarditis, afib refractory to cardioversion intially on coumadin which was stopped due to GI bleed mitral regurgitation with prolapse, status post mitral valve repair with a Maze procedure performed in November of 2010, diabetes, left leg below-knee amputation, opiate dependence, alcohol overuse, alcohol withdrawal seizures, GI bleed, MRSA bacteremia, who presented to the ED on the evening of 10/29/2016, for Alcohol withdrawal symptoms and gross hematuria. #Acute blood loss anemia, secondary to gross hematuria Patient has history of prostate cancer. Ultrasound of the renal system revealed a large bladder mass suggestive of hematoma as it was avascular, and correlates with a history of gross hematuria. Patient had cystoscopy on 11/01/16 showed massive blood clot in the bladder, diffuse oozing from bladder mucosa with most of the bleeding at the 12 o'clock position just inside the bladder neck. 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 Urine culture positive for Escherichia coli, patient finished course of ciprofloxacin of 7 days, last dose 11/06/16. * CBC daily * Recommendations regarding the possibility of hyperbaric oxygen for hemorrhagic radiation cystitis if gross hematuria persist. #Alcohol detox * Continue CIWA scoreing * Decrease Librium to 5 mg twice a day #Atrial fibrillation/hypertension/hyperlipidemia * Eliquis on hold for hematuria. * Metoprolol 25 mg * atorvastatin 20 mg #History of chronic kidney disease Cr today is 2.4 * repeat renal function daily #Diabetes mellitus: * Fingerstick glucose * Levemir 14 units daily * continue insulin scale * Consistent carbohydrate 3 Diabetic diet DVT prophylaxis is mechanical only because of ongoing blood loss Full code Problem List: 1. Alcohol dependence 2. Diabetes mellitus 3. Gross hematuria Pain Ratin Pain Location: na Pain Goal: Remain pain free Pain Plan: See A&P Tomorrow's Labs & Rationales: CBC for H&H BEP for renal function
[2016-11-08 16:16] VITALS: BP 144/82
--- NOTE | 2016-11-08 18:18 | PN- Cardiology ---
Subjective Subjective: * Patient has some urinary discomfort. No chest pain or shortness of breath. * atrial fibrillation * Mild hematuria persists * creatinine 2.4 * slight downtrend in H/H Objective Vital Signs and I&Os Vital Signs Date Time Temp Pulse Resp B/P B/P Pulse O2 O2 Flow FiO2 Mean Ox Delivery Rate 11/08 1616 97.7 88 18 144/82 94 11/08 1207 92 Room Air 11/08 0913 78 124/62 11/08 0812 97.7 78 20 124/62 93 Nasal 2.0L Cannula 11/08 0800 Nasal 2.0L Cannula 11/08 0000 Nasal 2.0L Cannula 11/07 2354 97.5 78 20 164/92 96 Nasal Cannula 11/07 2054 90 11/07 1906 95 Nasal 2.0L Cannula Intake & Output 11/08 1600 11/08 0800 11/08 0000 11/07 1600 11/07 0800 11/07 0000 Intake Total 480 250 870 350 300 600 Output Total 1150 2354 046 2636 Balance -670 250 870 - Intake, IV 10 10 Intake, Oral 480 240 860 350 300 600 Number 1 1 1 Bowel Movements Output, Urine 1150 5716 465 6098 Physical Exam: General: WD/ obese male in NAD; alert and oriented x 3 HEENT: NC/ AT, PERRL, EOMI Neck: no JVD, no carotid bruit Heart: irregularly irregular w/o murmur Lungs: clear bilaterally Abdomen: soft, Obese, NT, +ve bowel sounds Extremities: no edema, left BKA Assessment/Plan Assessment/Plan * This patient has been off his anticoagulation since admission. He needs to restart anticoagulation for stroke prophylaxis. Begin IV heparin and monitor for bleeding. Continue Metoprolol for now. * No crackles and portable chest X-ray did not disclose any pulmonary edema. His shortness of breath is likely due to a combination of severe anemia along with some restrictive lung disease from his obesity. There is no convincing decompensated CHF at this time but an adequate chest X-ray may be helpful. An accurate physical exam is difficult on this patient; repeat a BNP to assess for any decompensation. Continue telemetry? Yes
[2016-11-09 01:00] VITALS: BP 132/80
[2016-11-09 04:17] LABS: PTT 37 SEC (25-37)
[2016-11-09 07:30] VITALS: BP 154/86
--- NOTE | 2016-11-09 07:35 | Event Note ---
Event Note Event Note: Rapid response called around 7:05AM for an unwitnessed fall. Patient got out of the bed by himself to use to toilet urgent and then his knees gave out, causing him to land on his knees. He repeatedly says "I did not fall." Denies any loss of consciousness, head trauma and or knee pain. Patient denies palpitation or dizziness prior to the fall. On physical exam: No swelling, no deformities, No tenderness or limitations of ROM on the left knee . Vitals unremarkable with T 97.8, BP 150/86, HR 64, O2 sat 97% on RA, glucose 149. Patient denies chest pain, palpitations, dyspnea, headache, dizziness.
--- NOTE | 2016-11-09 07:38 | PN- Housestaff ---
See Addendum Subjective Follow-up For: 1.Alcohol detox 2.Hematuria 3CKD 4.Afib 5.DM Tele-Events Since Last Visit: Atrial fibrillation, heartrate 60-70, at 1 AM he had episode of bradycardia down to 34, at 6 AM he has a 3 second puse. Also overnight he had a run of 6 beat around 7 AM. Subjective: Afebrile, hemodynamically stable, saturating well on room air. He has no acute overnight events reported, however this morning he had a mechanical fall rapid response(refer to the events note). Patient denies any current active complaints. Review of Systems Constitutional: Reports: no symptoms. Objective Last 24 Hrs of Vital Signs/I&O Vital Signs Date Time Temp Pulse Resp B/P B/P Pulse O2 O2 Flow FiO2 Mean Ox Delivery Rate 11/09 0805 97.8 64 20 154/86 97 Room Air 11/09 0730 97.8 64 20 154/86 11/09 0708 97 Room Air 11/09 0100 97.9 78 18 132/80 94 Nasal Cannula 11/08 1945 98 Nasal 2.0L Cannula 11/08 1616 97.7 88 18 144/82 94 11/08 1600 Nasal 2.0L Cannula 11/08 1207 92 Room Air Intake & Output 11/09 1600 11/09 0800 11/09 0000 Intake Total 516 266 Output Total 1900 1999 Balance -1384 -1734 Intake, IV 216 26 Intake, Oral 300 240 Number 1 1 Bowel Movements Output, Urine 1900 1999 Patient 110.677 kg Weight Weight Leyla Lift Measurement Method Physical Exam General Appearance: Alert, Oriented X3, Cooperative, No Acute Distress HEENT: Atraumatic, PERRLA, EOMI, Mucous Membr. moist/pink Cardiovascular: Normal S1, Normal S2, No Murmurs, irregular Lungs: dimininshed air-entry over both lungs Abdomen: Normal Bowel Sounds, Soft, No Tenderness Extremities: No Clubbing, No Cyanosis, No Edema, LBKA Current Medications: Current Medications Sig/Avery Start time Last Medication Dose Route Stop Time Status Admin Acetaminophen 1,000 MG Q6H PRN 10/31 1500 AC 11/01 N/A 1 UNIT IV 0651 Albuterol Sulfate 3 ML Q4P PRN 11/01 2300 AC 11/08 INH 1945 Albuterol Sulfate 2 PUF Q4-6 PRN PRN 10/30 0930 AC 05 INH 0400 Atorvastatin Calcium 20 MG DAILY 10/30 1000 AC 11/08 PO 0913 Bisacodyl 5 MG DAILY 11/05 1000 AC 11/08 PO 0913 Bisacodyl 10 MG DAILY NEEDED PRN 11/04 1915 AC UT Budesonide/ 2 PUF BID 10/30 1000 AC 11/08 Formoterol Fumarate INH 2136 Chlordiazepoxide HCl 5 MG BID 11/08 2200 DC 11/08 PO 11/09 1001 2135 Duloxetine HCl 60 MG DAILY 10/30 1000 AC 11/08 PO 0913 Folic Acid 1 MG DAILY 10/30 1000 AC 11/08 PO 0913 Gabapentin 600 MG TID 10/30 1000 AC 11/08 PO 2135 Heparin Sodium 8,300 UNIT BOLUS ONE 11/09 0715 DC 11/09 (Porcine) IV 11/09 0716 0741 Heparin Sodium 25,000 UNIT Q24H 11/08 1830 DC 11/08 (Porcine) IV 2135 Sodium Chloride 500 ML Insulin Aspart 0 TIDAC 10/31 1200 AC 11/09 SC 0900 Insulin Detemir 14 UNITS DAILY 10/30 1000 AC 11/09 SC 0900 Magnesium Hydroxide 30 ML ONE PRN 11/01 1545 AC 11/04 PO 1738 Magnesium Oxide 400 MG .STK-MED ONE 11/09 0010 DC PO 11/09 0011 Magnesium Oxide 400 MG ONE ONE 11/08 2230 DC 11/09 PO 11/08 2231 0022 Magnesium Sulfate 1 GM ONCE ONE 11/08 2045 CAN Dextrose/Water 100 ML IV 11/09 0044 Metoprolol Tartrate 6.25 MG BID 11/07 1459 AC 11/08 PO 0913 Morphine Sulfate 30 MG Q12 11/05 1500 AC 11/08 PO 2154 Multivitamins 1 TAB DAILY 10/30 1000 AC 11/08 PO 0913 Oxycodone HCl 15 MG Q4P PRN 11/05 1430 AC 11/08 PO 0228 Patient Medication 1 ED .STK-MED ONE 11/08 1347 DC Teaching ED 11/08 1348 Polyethylene Glycol 17 GM DAILY 11/01 1544 AC 11/07 PO 1008 Senna/Docusate Sodium 1 TAB BID PRN 11/01 1545 AC 11/06 PO 0859 Last 24 Hrs of Lab/Manny Results Last 24 Hrs of Labs/Mics: Laboratory Tests 11/09/16 0330: APTT 37 Assessment/Plan Assessment: 66-year-old gentleman with past medical history of prostate cancer status post radiation hepatitis C status post treatment, hypertension, diabetes, infective endocarditis, afib refractory to cardioversion intially on coumadin which was stopped due to GI bleed mitral regurgitation with prolapse, status post mitral valve repair with a Maze procedure performed in November of 2010, diabetes, left leg below-knee amputation, opiate dependence, alcohol overuse, alcohol withdrawal seizures, GI bleed, MRSA bacteremia, who presented to the ED on the evening of 10/29/2016, for Alcohol withdrawal symptoms and gross hematuria. #Acute blood loss anemia, secondary to gross hematuria Patient has history of prostate cancer. Ultrasound of the renal system revealed a large bladder mass suggestive of hematoma as it was avascular, and correlates with a history of gross hematuria. Patient had cystoscopy on 11/01/16 showed massive blood clot in the bladder, diffuse oozing from bladder mucosa with most of the bleeding at the 12 o'clock position just inside the bladder neck. 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 Urine culture positive for Escherichia coli, patient finished course of ciprofloxacin of 7 days, last dose 11/06/16. His H&H is stable. * CBC daily * Recommendations regarding the possibility of hyperbaric oxygen for hemorrhagic radiation cystitis if gross hematuria persist. #Alcohol detox * Continue CIWA scoreing * Today is on Librium 5 mg twice a day, we will taper it. #Atrial fibrillation/hypertension/hyperlipidemia Patient has [id number] Score or 3 points, he has 3.2% risk of stroke per year and 4.6% risk of stroke/TIA/systemic embolism. It was recommended by cardiology yesterday to start patient on heparin. However patient has active blood loss because of hematuria and he is on CBI. Also he has a rare antibody on his blood which make it hard to find blood then match his blood for transfusion. This was discussed and agreed with Dr. Ann (site supervising technical operator). Also patient has bradycardia, 3 sec puse, and run of 6 beat. * We will DC IV heparin, and discussed with cardiology again * Metoprolol 25 mg * Atorvastatin 20 mg * We will follow cardiology recommendation in regard of the telemetry monitoring events #History of chronic kidney disease Cr today is 2.4 * repeat renal function daily #Diabetes mellitus: * Fingerstick glucose * Levemir 14 units daily * continue insulin scale * Consistent carbohydrate 3 Diabetic diet DVT prophylaxis is mechanical only because of ongoing blood loss Full code Problem List: 1. Alcohol dependence 2. Diabetes mellitus 3. CKD (chronic kidney disease) 4. History of prostate cancer 5. Gross hematuria 6. Acute blood loss anemia Pain Ratin Pain Location: NA Pain Goal: Remain pain free Pain Plan: See assessment and plan Tomorrow's Labs & Rationales: CBC and BEP
--- NOTE | 2016-11-09 07:46 | PN- Urology ---
Subjective Subjective: No acute distress Objective Vital Signs and I&Os Vital Signs Date Time Temp Pulse Resp B/P B/P Pulse O2 O2 Flow FiO2 Mean Ox Delivery Rate 11/09 0708 97 Room Air 11/09 0100 97.9 78 18 132/80 94 Nasal Cannula 11/08 1945 98 Nasal 2.0L Cannula 11/08 1616 97.7 88 18 144/82 94 11/08 1600 Nasal 2.0L Cannula 11/08 1207 92 Room Air 11/08 0913 78 124/62 11/08 0812 97.7 78 20 124/62 93 Nasal 2.0L Cannula 11/08 0800 Nasal 2.0L Cannula Intake & Output 11/09 0800 11/09 0000 11/08 1600 11/08 0800 11/08 0000 11/07 1600 Intake Total 266 480 250 870 350 Output Total 1999 1149 1150 Balance -1734 -670 250 870 -800 Intake, IV 26 10 10 Intake, Oral 240 480 240 860 350 Number 1 1 1 Bowel Movements Output, Urine 1999 1149 1150 Patient 244 lb Weight Weight Leyla Lift Measurement Method Abd: soft and non tender. Genitalia: 3-way king in place. CBI running at moderate rate with pink drainage which gets bloody when irrigation is slowed down Hct stable Laboratory Tests 11/09 0330 Coagulation APTT (25 - 37 SEC) 37 Assessment/Plan Assessment/Plan Imp: 1. s/p cystoscopy and clot evacuation 2. Hematuria appears due to radiation cystitis 3. hx of prostate ca 4. A-fib Plan: 1. Expect hematuria to worsen with anticoagulation. May have to be held 2. Hematuria due to radiation cystitis is usually not well treated with fulgeration 3, Would consult Dr Mccall about possible hyperbaric oxygen 4. Continue CBI 5. Daily CBC and transfuse prn 6 If above measures fail may need formalin instillation into bladder. Hope to avoid this as it has potentially significant complications
[2016-11-09 08:05] VITALS: BP 154/86
--- NOTE | 2016-11-09 13:32 | PN- Cardiology ---
Subjective Subjective: * Patient had a fall without LOC. * persistent hematuria * atrial fibrillation * INR is 1.03 * creatinine is 2,4 Objective Vital Signs and I&Os Vital Signs Date Time Temp Pulse Resp B/P B/P Pulse O2 O2 Flow FiO2 Mean Ox Delivery Rate 11/09 1047 64 154/86 11/09 0805 97.8 64 20 154/86 97 Room Air 11/09 0800 Nasal 2.0L Cannula 11/09 0730 97.8 64 20 154/86 11/09 0708 97 Room Air 11/09 0100 97.9 78 18 132/80 94 Nasal Cannula 11/08 1945 98 Nasal 2.0L Cannula 11/08 1616 97.7 88 18 144/82 94 11/08 1600 Nasal 2.0L Cannula Intake & Output 11/09 1600 11/09 0800 11/09 0000 11/08 1600 11/08 0800 11/08 0000 Intake Total 516 266 480 250 870 Output Total 1900 1999 115 Balance -1384 -1734 -670 250 870 Intake, IV 216 26 10 10 Intake, Oral 300 240 480 240 860 Number 1 1 1 1 Bowel Movements Output, Urine 1900 1999 1150 Patient 244 lb Weight Weight Leyla Lift Measurement Method Physical Exam: General: WD/ obese male in NAD; alert and oriented x 3 HEENT: NC/ AT, PERRL, EOMI Neck: no JVD, no carotid bruit Heart: irregularly irregular w/o murmur Lungs: clear bilaterally Abdomen: soft, Obese, NT, +ve bowel sounds Extremities: no edema, left BKA Assessment/Plan Assessment/Plan * This patient has been off his anticoagulation since admission and is at increased risk for a CVA. Unfortunately he continues to have hematuria. We will continue to hold anticoagulation for a while longer. Continue Metoprolol for now. * No crackles and portable chest X-ray did not disclose any pulmonary edema. His shortness of breath is likely due to a combination of severe anemia along with some restrictive lung disease from his obesity. There is no convincing decompensated CHF at this time but an adequate chest X-ray may be helpful. His BNP is coming down. Continue telemetry? No
[2016-11-09 16:15] VITALS: BP 120/70
[2016-11-09 23:00] VITALS: BP 142/80
[2016-11-10 05:21] LABS: ABSOLUTE BASOPHIL COUNT 0 /CUMM (0.0-0.2); ABSOLUTE EOSINOPHIL COUNT 0.2 /CUMM (0.0-0.7); ABSOLUTE GRANULOCYTE CT 5.9 /CUMM (1.4-6.5); ABSOLUTE LYMPH COUNT 0.4 /CUMM (1.2-3.4); RED BLOOD CELL CT 2.51 /CUMM (4.70-6.10)
[2016-11-10 05:23] LABS: ABSOLUTE MONOCYTE COUNT 0.5 /CUMM (0.10-0.60); BASOPHIL % 0.3 % (0.0-2.0); EOSINOPHIL % 2.4 % (0-5); GRANULOCYTE % 83.6 % (42.2-75.2); HEMATOCRIT 23.1 % (42-52); MEAN CORPUSCULAR HGB 30.9 PG (27.0-31.0); MEAN CORPUSCULAR HGB CONC 33.6 G/DL (33.0-37.0); MEAN PLATELET VOLUME 7.2 FL (7.4-10.4); PLATELET COUNT 295 /CUMM (130-400); RBC DISTRIBUTION WIDTH 15.7 % (11.5-14.5); WHITE BLOOD CELL COUNT 7.1 /CUMM (4.8-10.8)
--- NOTE | 2016-11-10 07:28 | PN- Housestaff ---
SHARON ARCEO,AMADO 11/10/16 0727: Subjective Follow-up For: etoh Tele-Events Since Last Visit: refused tele monitor Subjective: Saw pt at bedside this AM. He was sitting up at bedside eating breakfast. Urine was bright red, but per patient he stated that it looked improved. Note pt trefused tele last night. He has Hb 7.8 so ordered type and cross this AM. Review of Systems Constitutional: Denies: chills, fever, weakness. EENTM: Reports: no symptoms. Cardiovascular: Reports: no symptoms. Denies: chest pain. Respiratory: Reports: no symptoms. Gastrointestinal: Reports: no symptoms. Genitourinary: Reports: hematuria. Denies: hesitation, pain, urgency. Musculoskeletal: Reports: back pain, joint pain, muscle pain. Objective Last 24 Hrs of Vital Signs/I&O Vital Signs Date Time Temp Pulse Resp B/P B/P Pulse O2 O2 Flow FiO2 Mean Ox Delivery Rate 11/10 0800 97.1 77 20 102/62 97 Room Air 11/09 2300 97.9 78 18 142/80 96 Room Air 11/09 2204 78 142/80 11/09 1923 95 Room Air Room Air 11/09 1615 97.5 66 14 120/70 93 Room Air 11/09 1333 94 Room Air 11/09 1047 64 154/86 Intake & Output 11/10 1600 11/10 0800 11/10 0000 Intake Total 350 450 Output Total Balance 350 450 Intake, IV 0 0 Intake, Oral 350 450 Number 0 0 Bowel Movements Physical Exam General Appearance: Alert, Oriented X3, Cooperative, No Acute Distress Skin: No Significant Lesion HEENT: Atraumatic, PERRLA, EOMI Neck: Supple Cardiovascular: A. FIB Lungs: Normal Air Movement Abdomen: Soft, No Tenderness Current Medications: Current Medications Sig/Avery Start time Last Medication Dose Route Stop Time Status Admin Acetaminophen 1,000 MG Q6H PRN 10/31 1500 AC 11/01 N/A 1 UNIT IV 0651 Albuterol Sulfate 3 ML Q4P PRN 11/01 2300 AC 11/08 INH 1945 Albuterol Sulfate 2 PUF Q4-6 PRN PRN 10/30 0930 AC 11/04 INH 0400 Atorvastatin Calcium 20 MG DAILY 10/30 1000 AC 11/09 PO 1047 Bisacodyl 5 MG DAILY 11/05 1000 AC 11/08 PO 0913 Bisacodyl 10 MG DAILY NEEDED PRN 11/04 1915 AC TX Budesonide/ 2 PUF BID 10/30 1000 AC 11/09 Formoterol Fumarate INH 1048 Chlordiazepoxide HCl 5 MG ONCE ONE 11/10 0815 DC PO 11/10 0816 Chlordiazepoxide HCl 5 MG .STK-MED ONE 11/09 1051 DC PO 11/09 1052 Duloxetine HCl 60 MG DAILY 10/30 1000 AC 11/09 PO 1047 Folic Acid 1 MG DAILY 10/30 1000 AC 11/09 PO 1047 Gabapentin 600 MG TID 10/30 1000 AC 11/09 PO 2157 Insulin Aspart 0 TIDAC 10/31 1200 AC 11/09 SC 1234 Insulin Detemir 14 UNITS DAILY 10/30 1000 AC 11/09 SC 0900 Magnesium Hydroxide 30 ML ONE PRN 11/01 1545 AC 11/04 PO 1738 Metoprolol Tartrate 6.25 MG BID 11/07 1459 AC 11/09 PO 2204 Morphine Sulfate 30 MG Q12 11/05 1500 AC 11/09 PO 2158 Multivitamins 1 TAB DAILY 10/30 1000 AC 11/09 PO 1047 Oxycodone HCl 15 MG Q4P PRN 11/05 1430 AC 11/08 PO 0228 Polyethylene Glycol 17 GM DAILY 11/01 1544 AC 11/07 PO 1008 Senna/Docusate Sodium 1 TAB BID PRN 11/01 1545 AC 11/06 PO 0859 Last 24 Hrs of Lab/Manny Results Last 24 Hrs of Labs/Mics: Laboratory Tests 11/10/16 0445: Anion Gap 11, Estimated GFR 34 L, BUN/Creatinine Ratio 31.5 H, CBC w Diff NO MAN DIFF REQ, RBC 2.51 L, MCV 92.0, MCH 30.9, RDW 15.7 H, MPV 7.2 L, Gran % 83.6 H, Lymphocytes % 6.1 L, Monocytes % 7.6, Eosinophils % 2.4, Basophils % 0.3, Absolute Granulocytes 5.9, Absolute Lymphocytes 0.4 L, Absolute Monocytes 0.5, Absolute Eosinophils 0.2, Absolute Basophils 0, PUBS MCHC 33.6 Assessment/Plan Assessment: 66-year-old gentleman with past medical history of prostate cancer status post radiation hepatitis C status post treatment, hypertension, diabetes, infective endocarditis, afib refractory to cardioversion intially on coumadin which was stopped due to GI bleed mitral regurgitation with prolapse, status post mitral valve repair with a Maze procedure performed in November of 2010, diabetes, left leg below-knee amputation, opiate dependence, alcohol overuse, alcohol withdrawal seizures, GI bleed, MRSA bacteremia, who presented to the ED on the evening of 10/29/2016, for Alcohol withdrawal symptoms and gross hematuria. #Acute blood loss anemia, secondary to gross hematuria: Hb today 7.8. Will type and cross pt. Will hold off transfusion for goal >7 Patient has history of prostate cancer. Ultrasound of the renal system revealed a large bladder mass suggestive of hematoma as it was avascular, and correlates with a history of gross hematuria. Patient had cystoscopy on 11/01/16 showed massive blood clot in the bladder, diffuse oozing from bladder mucosa with most of the bleeding at the 12 o'clock position just inside the bladder neck. 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 Urine culture positive for Escherichia coli, patient finished course of ciprofloxacin of 7 days, last dose 11/06/16. His H&H is stable. * CBC daily * Recommendations regarding the possibility of hyperbaric oxygen for hemorrhagic radiation cystitis if gross hematuria persist. Per urology possible intervention next week. #Alcohol detox * Continue CIWA scoreing * Today is on Librium 5 mg twice a day, we will taper it.--> Librium 5 mg in AM and STOP #Atrial fibrillation/hypertension/hyperlipidemia Patient has [id number] Score or 3 points, he has 3.2% risk of stroke per year and 4.6% risk of stroke/TIA/systemic embolism. * We will DC IV heparin, and discussed with cardiology again * Metoprolol 25 mg * Atorvastatin 20 mg * We will follow cardiology recommendation in regard of the telemetry monitoring events. Likely D/C tele monitor today. #History of chronic kidney disease * repeat renal function daily #Diabetes mellitus: * Fingerstick glucose * Levemir 14 units daily * continue insulin scale * Consistent carbohydrate 3 Diabetic diet DVT prophylaxis is mechanical only because of ongoing blood loss Full code Problem List: 1. Alcohol dependence 2. CKD (chronic kidney disease) Pain Ratin Pain Location: none Pain Goal: Remain pain free Pain Plan: current reg Tomorrow's Labs & Rationales: inr DVT/Prophylaxis: KATHY Helton MD 11/10/16 1714: Attending MD Review Statement Attending Statement Attending MD Statement: examined this patient, discuss w/resident/PA/RISK CONTROL CONSULTANT, agreed w/resident/PA/RISK CONTROL CONSULTANT, reviewed EMR data (avail), discussed with nursing, discussed with case mgmt, amended to note Attending Assessment/Plan: The patient was seen and discussed with house staff. Still with significant hematuria. Urology suggested possible cysto/fulguration/formaldehyde next week if continues to bleed. Patient off telemetry. Will transfer to general medicine service. Continue CBI.
[2016-11-10 08:00] VITALS: BP 102/62
--- NOTE | 2016-11-10 09:11 | PN- Urology ---
Subjective Subjective: No acute distress. Above events noted Objective Vital Signs and I&Os Vital Signs Date Time Temp Pulse Resp B/P B/P Pulse O2 O2 Flow FiO2 Mean Ox Delivery Rate 11/10 0800 97.1 77 20 102/62 97 Room Air 11/09 2300 97.9 78 18 142/80 96 Room Air 11/09 2204 78 142/80 11/09 1923 95 Room Air Room Air 11/09 1615 97.5 66 14 120/70 93 Room Air 11/09 1333 94 Room Air 11/09 1047 64 154/86 Intake & Output 11/10 1600 11/10 0800 11/10 0000 11/09 1600 11/09 0800 11/09 0000 Intake Total 350 450 480 516 266 Output Total 1150 1900 1999 Balance 350 450 -670 -1384 -1734 Intake, IV 0 0 216 26 Intake, Oral 350 450 480 300 240 Number 0 0 1 1 1 Bowel Movements Output, Urine 1150 1900 1999 Patient 244 lb Weight Weight Leyla Lift Measurement Method Abd: soft Genitalia: 3-way king in place. CBI running at slow to moderate rate. Drainage is pink Hct slowly drifting down Laboratory Tests 11/10 0445 Chemistry Sodium (137 - 145 mmol/L) 140 Potassium (3.5 - 5.1 mmol/L) 3.9 Chloride (98 - 107 mmol/L) 106 Carbon Dioxide (22 - 30 mmol/L) 23 Anion Gap (5 - 16) 11 BUN (9 - 20 mg/dL) 63 H Creatinine (0.7 - 1.2 mg/dL) 2.0 H Estimated GFR (>60 ml/min) 34 L BUN/Creatinine Ratio (7 - 25 %) 31.5 H Hematology CBC w Diff NO MAN DIFF REQ WBC (4.8 - 10.8 /CUMM) 7.1 RBC (4.70 - 6.10 /CUMM) 2.51 L Hgb (14.0 - 18.0 G/DL) 7.8 L Hct (42 - 52 %) 23.1 L MCV (80.0 - 94.0 FL) 92.0 MCH (27.0 - 31.0 PG) 30.9 RDW (11.5 - 14.5 %) 15.7 H Plt Count (130 - 400 /CUMM) 295 MPV (7.4 - 10.4 FL) 7.2 L Gran % (42.2 - 75.2 %) 83.6 H Lymphocytes % (20.5 - 51.1 %) 6.1 L Monocytes % (1.7 - 9.3 %) 7.6 Eosinophils % (0 - 5 %) 2.4 Basophils % (0.0 - 2.0 %) 0.3 Absolute Granulocytes (1.4 - 6.5 /CUMM) 5.9 Absolute Lymphocytes (1.2 - 3.4 /CUMM) 0.4 L Absolute Monocytes (0.10 - 0.60 /CUMM) 0.5 Absolute Eosinophils (0.0 - 0.7 /CUMM) 0.2 Absolute Basophils (0.0 - 0.2 /CUMM) 0 PUBS MCHC (33.0 - 37.0 G/DL) 33.6 Assessment/Plan Assessment/Plan Imp: 1. 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 s/p cysto and extensive clot evacuation. Urine cleared temporarily. Finding c/w cystitis likely radiation induced 3. A-fib Plan: 1. Would consult Dr Mccall for possible hyperbaric oxygen 2. If hyperbaric oxygen not possible then will continue conservative management with CBI for now 3. If no improvement then next week cysto, attempted fulgeration and possible instillation of intravesical formalin. Would hope to avoid this as it has potentially significant side effects 4. I am away until Monday. Dr Torres covering today. Usual weekend coverage
[2016-11-10 15:10] VITALS: BP 110/60
[2016-11-10 22:37] VITALS: BP 114/60
[2016-11-11 07:21] VITALS: BP 160/72
[2016-11-11 07:42] LABS: ABSOLUTE BASOPHIL COUNT 0 /CUMM (0.0-0.2); ABSOLUTE EOSINOPHIL COUNT 0.2 /CUMM (0.0-0.7); ABSOLUTE GRANULOCYTE CT 5.6 /CUMM (1.4-6.5); ABSOLUTE LYMPH COUNT 0.6 /CUMM (1.2-3.4); ABSOLUTE MONOCYTE COUNT 0.7 /CUMM (0.10-0.60); BASOPHIL % 0.4 % (0.0-2.0); EOSINOPHIL % 2.8 % (0-5); GRANULOCYTE % 78.6 % (42.2-75.2); HEMATOCRIT 23.3 % (42-52); MEAN CORPUSCULAR HGB 30.5 PG (27.0-31.0); MEAN CORPUSCULAR HGB CONC 33.4 G/DL (33.0-37.0); MEAN CORPUSCULAR VOLUME 91.4 FL (80.0-94.0); MEAN PLATELET VOLUME 6.5 FL (7.4-10.4); PLATELET COUNT 293 /CUMM (130-400); RED BLOOD CELL CT 2.55 /CUMM (4.70-6.10); WHITE BLOOD CELL COUNT 7.1 /CUMM (4.8-10.8)
--- NOTE | 2016-11-11 07:55 | Cons- Wound Care ---
General Information and HPI Consulting Request Date of Consult: 11/11/16 Requested By: KATHY WIGGINS MD Reason for Consult: Persistent hematuria secondary to radiation cystitis History of Present Illness: S is [age]-old gentleman with multiple medical problems including diabetes alcohol withdrawal seizures COPD atrial fibrillation congestive heart failure for evaluation of can receive hyperbaric oxygen treatment of persistent hematuria secondary to radiation cystitis. Patient reportedly underwent full dose radiation approximately 7 years ago for prostate cancer. He presented with alcohol withdrawal and acute blood loss anemia secondary to hematuria due to documented radiation cystitis status post cystoscopy. His course is complicated by hypotension congestive heart failure and hypoxic respiratory failure. He has significantly improved medically but continues to have hematuria. Allergies/Medications Allergies: Coded Allergies: NO KNOWN ALLERGIES (06/07/16) Home Med List: Albuterol Sulfate (Ventolin Hfa) 90 MCG HFA.AER.AD 2 PUF INH Q4-6 PRN PRN COPD (Reported) Amlodipine Besylate (Norvasc) (Unknown Strength) TABLET (Unknown Dose) PO DAILY BP (Reported) Aspirin (Ecotrin*) 81 MG TABLET.DR 1 TAB PO DAILY HEART/BLOOD (Reported) Atorvastatin Calcium 20 MG TABLET 1 TAB PO DAILY CHOLESTEROL (Reported) Budesonide/Formoterol Fumarate (Symbicort 160-4.5 Mcg Inhaler) 10.2 GM HFA.AER.AD 2 PUF INH BID RESPIRATORY (Reported) Duloxetine HCl 60 MG CAPSULE.DR 1 CAP PO QAM depression (Reported) Folic Acid 1 MG TABLET 1 TAB PO DAILY OTHER Gabapentin 300 MG CAPSULE 2 CAP PO TID NERVE PAIN (Reported) Insulin Detemir (Levemir) 100 UNIT/ML VIAL 14 UNITS SC DAILY DM (Reported) Metoprolol Succ XL (Toprol XL) 25 MG TAB.ER.24H 1 TAB PO DAILY BP (Reported) Morphine Sulfate (Ms Contin) 30 MG TABLET.ER 1 TAB PO BIDP PRN Chronic Back Pain (Reported) Oxycodone HCl 15 MG TABLET 1 TAB PO Q4 PRN Chronic Back Pain (Reported) Tamsulosin HCl 0.4 MG CAP.ER.24H 1 CAP PO DAILY PROSTATE (Reported) Review of Systems Review of Systems: He denies ear complaints he has a history of alcohol withdrawal seizures his history of COPD. He has a history of valvular heart disease and atrial fibrillation. Past History Travel History Traveled to [place] past 21 day No Medical History Blood Transfusion Hx: Yes Neurological: delerium tremens, seizure Cardiovascular: AFIB, CHF, hypertension, mitral regurgitation, Staph aureus endocarditis Respiratory: COPD Gastrointestinal: GERD, Diarrhea, nausea Hepatic: hepatitis C Renal: chronic kidney disease Musculoskeletal: degen joint disease, CHRONIC BACK PAIN R FOOT NONHEALING WOUND Psychiatric: alcohol dependence, anxiety Endocrine: diabetes Blood Disorders: anemia, Waldenstrohm's macroglobulinemia Cancer(s): colon/rectal cancer (operated), prostate cancer (treated), WALDENSTROM LYMPHOMA BUGGY DRIVER/Reproductive: NONE Surgical History Surgical History: colon resection, MITRAL VALVE REPAIR left ankle surgery/ arthrodesis Family History Relations & Conditions If Any: FATHER, , Age 87; Cause: Prostate CA. FH: diabetes mellitus FH: stroke FHx: prostate cancer PATERNAL GRANDMOTHER, ; Cause: Colon cancer. MOTHER, , Age 87; Cause: Old age. Psychosocial History Where Do You Live? Home Who Do You Live With? self Services at Home: None Primary Language: Hungarian Smoking Status: Current Everyday Smoker Living Will? unknown Power of Invasive Cardiologist/HCP? unknown Functional Ability ADLs Independent: dressing, eating, toileting, bathing. Ambulation: independent (Nadine boot left foot) IADLs Independent: shopping, housework, finances, food prep, telephone, transportation , medication admin. ECHO Results (as available) Date of last Echo 01/12/16 EF% 65 Exam & Diagnostic Data Vital Signs and I&O Vital Signs Result Date Time Pulse Ox 97 11/11 0721 B/P 160/72 11/11 0721 O2 Delivery Nasal Cannula 11/11 720 O2 Flow Rate 2.0L 11/11 720 Temp 97.6 11/11 0721 Pulse 58 11/11 0721 Resp 20 11/11 0721 Intake & Output 11/11 0000 11/10 1600 11/10 0800 Intake Total 260 800 350 Output Total 1400 Balance 260 -600 350 Intake, IV 20 0 Intake, Oral 240 800 350 Number 1 0 Bowel Movements Output, Urine 1400 Patient is alert and comfortable on room air exam of his chest shows expiratory wheezing cardiac exam shows a regular S1 and S2 without murmurs Assessment/Plan Impression/Plan: 66-year-old gentleman with multiple medical problems has had 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 Patient is high risk for potential complications of hyperbaric oxygen therapy given multitude of medical problems and evidence of active bronchospasm. Acute medical issues can be improved he is a candidate for hyperbaric oxygen at 2 YAS 5 200% 90 minutes of therapeutic treatment time. Understanding that any improvement would not occur for at least 2 weeks. Ideally treatment should be deferred to the outpatient setting however if his hematuria cannot otherwise be controlled inpatient hyperbarics can be started making his cardiopulmonary status can be optimized. He would need pulmonary function testing and more aggressive optimization of airway function Consult Acknowledgment - Thank you for your consult request.
[2016-11-11 08:18] LABS: PT 11.5 SEC (9.4-12.5)
--- NOTE | 2016-11-11 10:29 | RADIOLOGY REPORT ---
EXAMINATION: XR PORTABLE CHEST CLINICAL INFORMATION: Bronchospasm and wheezes. COMPARISON: None. TECHNIQUE: Portable frontal view of the chest was obtained. FINDINGS: Since the previous study there's been dramatic improvement with near complete clearing of bilateral airspace opacities which may have been infiltrates or somewhat atypical CHF. The heart remains enlarged. Right subclavian catheter remains with its tip in the SVC. Patient status post median sternotomy. The costophrenic angles are sharp without evidence of systems. IMPRESSION: Resolved pulmonary air space opacities.
--- NOTE | 2016-11-11 10:39 | PN- Housestaff ---
ROMMEL ARCEO,NATA 11/11/16 1039: Subjective Follow-up For: Alcohol detoxification; hematuria Complaints: peristant hematuria Tele-Events Since Last Visit: off tele per patient since yesterday, now in floor Subjective: I followed up with patient today. He is resting comfortably in bed, does not appear to be in distress, continuous bladder irrigation running, patient still has hematuria with pink discolored urine collected and uro bag, vitals have been stable, no overnight issues. Of note, I was called by the nursing staff that the patient wanted to leave AMA at approximately 1615hrs today. He mentioned that he was not satisfied with the nursing staff and requested the staff to be changed otherwise he would leave AGAINST MEDICAL ADVICE. Subsequently the patient was communicated to the nursing supervisor heading and nursing staff were changed. Patient agreed to remain in hospital and continue remainder of his treatment. Review of Systems Constitutional: Reports: no symptoms. Objective Last 24 Hrs of Vital Signs/I&O Vital Signs Date Time Temp Pulse Resp B/P B/P Pulse O2 O2 Flow FiO2 Mean Ox Delivery Rate 11/11 1600 Nasal 2.0L Cannula 11/11 1407 98.8 60 20 122/60 94 Nasal 2.0L Cannula 11/11 0940 68 158/70 11/11 0800 Nasal 2.0L Cannula 11/11 0721 97.6 58 20 160/72 97 Nasal 2.0L Cannula 11/10 2237 97.1 81 20 114/60 96 Room Air Intake & Output 11/11 1600 11/11 0800 11/11 0000 Intake Total 700 270 260 Output Total 625 Balance 75 270 260 Intake, IV 30 20 Intake, Oral 700 240 240 Number 1 Bowel Movements Output, Urine 625 Physical Exam General Appearance: Alert, Oriented X3, Cooperative, No Acute Distress, obese Other Physical Findings: HEENT: Atraumatic, PERRLA, EOMI, Mucous Membr. moist/pink Cardiovascular: Normal S1, Normal S2, No Murmurs, irregular Lungs: dimininshed air-entry over both lungs, coughing cleared the added sounds Abdomen: Normal Bowel Sounds, Soft, No Tenderness Extremities: No Clubbing, No Cyanosis, No Edema, LBKA CBI ongoing, with pink discolored urine in uro bag Current Medications: Current Medications Sig/Avery Start time Last Medication Dose Route Stop Time Status Admin Acetaminophen 1,000 MG Q6H PRN 10/31 1500 AC 11/01 N/A 1 UNIT IV 0651 Albuterol Sulfate 2 PUF Q6 11/11 1800 AC 11/11 INH 1727 Albuterol Sulfate 3 ML Q6 11/11 1200 DC INH Albuterol Sulfate 3 ML Q4P PRN 11/01 2300 DC 11/08 INH 1945 Albuterol Sulfate 2 PUF Q4-6 PRN PRN 10/30 0930 DC 11/04 INH 0400 Atorvastatin Calcium 20 MG DAILY 10/30 1000 AC 11/11 PO 0940 Bisacodyl 5 MG DAILY 11/05 1000 AC 11/10 PO 1153 Bisacodyl 10 MG DAILY NEEDED PRN 11/04 1915 AC DC Budesonide/ 2 PUF BID 10/30 1000 AC 11/11 Formoterol Fumarate INH 1422 Duloxetine HCl 60 MG DAILY 10/30 1000 AC 11/11 PO 0940 Folic Acid 1 MG DAILY 10/30 1000 AC 11/11 PO 0940 Gabapentin 600 MG TID 10/30 1000 AC 11/11 PO 1726 Insulin Aspart 0 TIDAC 10/31 1200 AC 11/10 SC 1329 Insulin Detemir 14 UNITS DAILY 10/30 1000 AC 11/11 SC 0938 Magnesium Hydroxide 30 ML ONE PRN 11/01 1545 AC 11/04 PO 1738 Metoprolol Tartrate 6.25 MG BID 11/07 1459 AC 11/11 PO 0940 Morphine Sulfate 15 MG Q12 11/11 2200 AC PO Morphine Sulfate 30 MG Q12 11/05 1500 DC 11/11 PO 0939 Multivitamins 1 TAB DAILY 10/30 1000 AC 11/11 PO 0940 Oxycodone HCl 15 MG Q4P PRN 11/05 1430 AC 11/11 PO 1421 Patient Medication 1 ED .STK-MED ONE 11/11 141 MD Teaching ED 11/11 1416 Polyethylene Glycol 17 GM DAILY 11/01 1544 AC 11/10 PO 1154 Senna/Docusate Sodium 1 TAB BID PRN 11/01 1545 AC 11/06 PO 0859 Last 24 Hrs of Lab/Manny Results Last 24 Hrs of Labs/Mics: Laboratory Tests 11/11/16 0625: Anion Gap 10, Estimated GFR 32 L, BUN/Creatinine Ratio 26.2 H, PT 11.5, INR 1.10, CBC w Diff NO MAN DIFF REQ, RBC 2.55 L, MCV 91.4, MCH 30.5, RDW 16.0 H, MPV 6.5 L, Gran % 78.6 H, Lymphocytes % 8.6 L, Monocytes % 9.6 H, Eosinophils % 2.8, Basophils % 0.4, Absolute Granulocytes 5.6, Absolute Lymphocytes 0.6 L, Absolute Monocytes 0.7 H, Absolute Eosinophils 0.2, Absolute Basophils 0, PUBS MCHC 33.4 Assessment/Plan Assessment: 66-year-old gentleman with past medical history of prostate cancer status post radiation hepatitis C status post treatment, hypertension, diabetes, infective endocarditis, afib refractory to cardioversion intially on coumadin which was stopped due to GI bleed mitral regurgitation with prolapse, status post mitral valve repair with a Maze procedure performed in November of 2010, diabetes, left leg below-knee amputation, opiate dependence, alcohol overuse, alcohol withdrawal seizures, GI bleed, MRSA bacteremia, who presented to the ED on the evening of 10/29/2016, for Alcohol withdrawal symptoms and gross hematuria. #Acute blood loss anemia, secondary to gross hematuria: Hb today 7.8. Stable since yesterday. Type and screen sent yesterday. Will hold off transfusion for goal >7 Patient has history of prostate cancer. Ultrasound of the renal system revealed a large bladder mass suggestive of hematoma as it was avascular, and correlates with a history of gross hematuria. Patient had cystoscopy on 11/01/16 showed massive blood clot in the bladder, diffuse oozing from bladder mucosa with most of the bleeding at the 12 o'clock position just inside the bladder neck. 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 Urine culture positive for Escherichia coli, patient finished course of ciprofloxacin of 7 days, last dose 11/06/16. His H&H is stable. * CBC daily * Recommendations regarding the possibility of hyperbaric oxygen for hemorrhagic radiation cystitis if gross hematuria persist. Per urology possible intervention next week. #Alcohol detox * Completed detox yesterday with last dose of Librium. Not in withdrawal currently. #Atrial fibrillation/hypertension/hyperlipidemia Patient has [id number] Score or 3 points, he has 3.2% risk of stroke per year and 4.6% risk of stroke/TIA/systemic embolism. * IV heparin was discontinued after discussing with Cardiology * Metoprolol 25 mg * Atorvastatin 20 mg * Telemetry monitoring was discontinued per patient's request, after explaining the need to continuously monitor his cardiac activities, given that he has significant pauses. He has full capacity to understand the situation and choose the treatment plan, including the consequences of continuing telemetry and not continuing telemetry. He understands that if he is not under telemetry monitoring, significant cardiac events can be missed which can have a detrimental effect on his health. This was also discussed with [employer]. #History of chronic kidney disease * repeat renal function daily #Diabetes mellitus: * Fingerstick glucose * Levemir 14 units daily * continue insulin scale * Consistent carbohydrate 3 #According to patient's request, and nebulizations have been now changed to metered-dose inhaler. A repeat chest x-ray was done which showed resolution of pulmonary airspace opacities. #According to patient's request, pain medications have been reduced from 30 mg morphine continous release form oral to 15 mg oral morphine continuous release form today. Will reassess pain management tomorrow. Diabetic diet DVT prophylaxis is mechanical only because of ongoing blood loss Full code Problem List: 1. Alcohol dependence 2. Gross hematuria 3. Acute blood loss anemia 4. Urinary tract infection with hematuria 5. CKD (chronic kidney disease) 6. History of prostate cancer 7. Diabetes mellitus 8. COPD Pain Ratin Pain Location: - Pain Goal: Pain 4 or less Pain Plan: prn Tomorrow's Labs & Rationales: BEP, BRIAN CRUZ MD,NAKUL 11/11/16 1144: Attending Review Statement Attending Statement Attending MD Statement: examined this patient, discuss w/resident/PA/KETTLE TENDER, agreed w/resident/PA/KETTLE TENDER, reviewed EMR data (avail), discussed with nursing, discussed with case mgmt, amended to note Attending Assessment/Plan: Pateint seen and examined. Mildly drowsy but not in any acute distress. He reports that he does not take his morphine at home on a daily basis. He has been receiving his morphine twice daily here. He wishes to have the dose reduced. Denies nausea vomiting. Denies abdominal pain. He continues to have ongoing hematuria. On exam lungs are clear bilaterally. Abdomen is soft and nontender. He has trace peripheral edema. Problems: 1. Acute blood loss anemia secondary to ongoing hematuria. 2. Hemorrhagic radiation cystitis. 3. Acute on chronic kidney disease; currently improving 4. Alcohol withdrawal; resolved 5. Insulin-dependent diabetes mellitus 6. COPD 7. Mitral valve prolapse status post repair. 8. Chronic Pain Syndrome. Plan: -We will get service would like to attempt treatment with hyperbaric oxygen for his hemorrhagic cystitis. This will be attempted once his hematuria has improved to the point where he CBI, be held for 2 hours. Right now any brief interruption of CBI results in significant clots. -Continue bronchodilator therapy and Symbicort for his COPD. He currently does not appear decompensated. -Continue close monitoring of his hemoglobin level and transfuse to keep Hb greater than 7. transfuse earlier if he becomes hemodynamically unstable or symptomatic. -Blood glucose level is currently acceptable on the current regimen. -Cr level is stable. -Patient reports that at home he does not take his morphine daily but only as needed. He has been getting his extended release morphine twice daily here. He wishes to have the dose reduced. We'll decrease morphine to 15 mg every 12 hours as needed. If he still remains drowsy may consider holding one of the twice daily doses.
--- NOTE | 2016-11-11 11:20 | Cons- Psychiatry ---
Psychiatric Consult Date of Consult: 11/11/16 Reason for Consult: Originally ordered as "EtOH detox" clarified with attending that capacity eval is required for dispo. Clarified with biomedical engineering internship this AM as dispo is not yet known, would like capacity eval for ability to make healthcare decisions regarding telemetry monitoring. Attending Dr. Larry History of Present Illness: Identifying Info: A 66-year-old single male presents to [facility] emergency department by ambulance on 10/29/2016 for fatigue and SOB. Subsequently admitted for alcohol detox, hematuria, chronic kidney disease, A. fib and diabetes. CC: "I'm afraid of what I'll find out" HPI: This patient has a long history of emergency department visits and admissions at [facility] for his chronic medical conditions. He has had 19 emergency department visits in the last 12 months. He has a habit of accepting help then not excepting follow-up recommendations, this typically involves refusing to go to inpatient rehabilitation. On this admission the patient has had cardiac issues that the medical team feels required telemetry monitoring. At present he declines this intervention. PMH: Please see the H&P for a complete listing Hepatitis C status post treatment, opiate dependence, diabetes, left leg below- knee amputation, alcohol overuse, alcohol withdrawal seizures, GI bleed, infective endocarditis, MRSA bacteremia Past Psych History: By history adjustment disorder Family Psych History: Noncontributory Substance History Alcohol use disorder By history sedative hypnotic use disorder By history cocaine use disorder By history opiate use disorder Family Substance History: Noncontributory Social: Currently unemployed, lives alone. Abuse/Trauma: Did not obtain Current Home Psychotropic Medications: Cymbalta 90 mg daily Gabapentin 300 mg 3 times a day Current Hospital Psychotropic Medications: Med Duloxetine HCl 60 MG PO DAILY 10/30/16 1000 Gabapentin 600 MG PO TID 10/30/16 1000 Allergies: Coded Allergies: NO KNOWN ALLERGIES (06/07/16) Current Medications: Current Medications Sig/Avery Start time Last Medication Dose Route Stop Time Status Admin Acetaminophen 1,000 MG Q6H PRN 10/31 1500 AC 11/01 N/A 1 UNIT IV 0651 Albuterol Sulfate 3 ML Q6 11/11 1200 AC INH Albuterol Sulfate 3 ML Q4P PRN 11/01 2300 DC 11/08 INH 1945 Albuterol Sulfate 2 PUF Q4-6 PRN PRN 10/30 0930 AC 11/04 INH 0400 Atorvastatin Calcium 20 MG DAILY 10/30 1000 AC 11/11 PO 0940 Bisacodyl 5 MG DAILY 11/05 1000 AC 11/10 PO 1153 Bisacodyl 10 MG DAILY NEEDED PRN 11/04 1915 AC HI Budesonide/ 2 PUF BID 10/30 1000 AC 11/10 Formoterol Fumarate INH 1155 Duloxetine HCl 60 MG DAILY 10/30 1000 AC 11/11 PO 0940 Folic Acid 1 MG DAILY 10/30 1000 AC 11/11 PO 0940 Gabapentin 600 MG TID 10/30 1000 AC 11/11 PO 0940 Insulin Aspart 0 TIDAC 10/31 1200 AC 11/10 SC 1329 Insulin Detemir 14 UNITS DAILY 10/30 1000 AC 11/11 SC 0938 Magnesium Hydroxide 30 ML ONE PRN 11/01 1545 AC 11/04 PO 1738 Metoprolol Tartrate 6.25 MG BID 11/07 1459 AC 11/11 PO 0940 Morphine Sulfate 15 MG Q12 11/11 2200 AC PO Morphine Sulfate 30 MG Q12 11/05 1500 DC 11/11 PO 0939 Multivitamins 1 TAB DAILY 10/30 1000 AC 11/11 PO 0940 Oxycodone HCl 15 MG .STK-MED ONE 11/10 1950 DC PO 11/10 195 Oxycodone HCl 15 MG Q4P PRN 11/05 1430 AC 11/10 PO 1951 Patient Medication 1 ED .STK-MED ONE 11/10 1431 DC Teaching ED 11/10 1432 Polyethylene Glycol 17 GM DAILY 11/01 1544 AC 11/10 PO 1154 Senna/Docusate Sodium 1 TAB BID PRN 11/01 1545 AC 11/06 PO 0859 Past History Past Medical History Neurological: delerium tremens, seizure Cardiovascular: AFIB, CHF, hypertension, mitral regurgitation, Staph aureus endocarditis Respiratory: COPD Gastrointestinal: GERD, Diarrhea, nausea Hepatic: hepatitis C Renal: chronic kidney disease Musculoskeletal: degen joint disease, CHRONIC BACK PAIN R FOOT NONHEALING WOUND Psychiatric: alcohol dependence, anxiety Endocrine: diabetes Blood Disorders: anemia, Waldenstrohm's macroglobulinemia Cancer(s): colon/rectal cancer (operated), prostate cancer (treated), 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 Past Surgical History Surgical History: colon resection, MITRAL VALVE REPAIR left ankle surgery/ arthrodesis Psychosocial History Strengths/Capabilities: Able to verbalize wants Physical Limitations (Interventions): Multiple medical issues Psychiatric Treatment History Psych Treatment Psychiatric Treatment Yes (as above) Diagnosis: By history adjustment disorder Alcohol use disorder By history sedative hypnotic use disorder By history cocaine use disorder By history opiate use disorder Risk Factors: age (under 24/over 65), chronic/serious med cond., lives alone, male Substance Use/Abuse History Drug Use/Abuse Substances Used/Abused Yes Substance Abuse Treatment Substance Abuse Treatment Past Substance Abuse [place] Yes Assessment/Plan Mental Status Mental Status Exam: Mental Status Exam Presentation/Appearance: Cooperative with evaluation. Hospital garb. Lying in bed Orientation: x4 Sensorium: Somnolent, lethargic Eye contact: Appropriate Affect: Blunted Mood: "I think the morphine is too high... my mood is slow" Depression: Endorses Anxiety: Denies Thought Content: - Denies SI/HI, AH/VH, PI. States and also believes they will not kill themselves. - Denies Hopeless/Helpless Thoughts Thought Process: Linear Associations: Appropriate Speech: Latency in response, normal tone and volume Judgment: Fair Insight: Fair Cognition: Memory: Grossly intact Attention/Concentration: Grossly intact Fund of Knowledge: Did not assess Abstractions:Did not assess MMSE: Did not assess Brief ROS Gait: Impaired Sleep: Fair Appetite: Did not assess Energy: Low IADLs/ADLs: With assist Capacity assessment Patient demonstrates the ability to communicate a choice regarding whether or not he would like telemetry monitoring he verbalizes an understanding of the relevant information including risks and benefits and appears to appreciate the situation and its consequences. He has the ability to reason about this treatment option but declines monitoring. Lab Results: Laboratory Tests 11/11/16 0625: Anion Gap 10, Estimated GFR 32 L, BUN/Creatinine Ratio 26.2 H, PT 11.5, INR 1.10, CBC w Diff NO MAN DIFF REQ, RBC 2.55 L, MCV 91.4, MCH 30.5, RDW 16.0 H, MPV 6.5 L, Gran % 78.6 H, Lymphocytes % 8.6 L, Monocytes % 9.6 H, Eosinophils % 2.8, Basophils % 0.4, Absolute Granulocytes 5.6, Absolute Lymphocytes 0.6 L, Absolute Monocytes 0.7 H, Absolute Eosinophils 0.2, Absolute Basophils 0, PUBS MCHC 33.4 11/10/16 0445: Anion Gap 11, Estimated GFR 34 L, BUN/Creatinine Ratio 31.5 H, CBC w Diff NO MAN DIFF REQ, RBC 2.51 L, MCV 92.0, MCH 30.9, RDW 15.7 H, MPV 7.2 L, Gran % 83.6 H, Lymphocytes % 6.1 L, Monocytes % 7.6, Eosinophils % 2.4, Basophils % 0.3, Absolute Granulocytes 5.9, Absolute Lymphocytes 0.4 L, Absolute Monocytes 0.5, Absolute Eosinophils 0.2, Absolute Basophils 0, PUBS MCHC 33.6 11/09/16 1130: APTT Cancelled 11/09/16 0330: APTT 37 Diffential Diagnosis: By history adjustment disorder Alcohol use disorder By history sedative hypnotic use disorder By history cocaine use disorder By history opiate use disorder Impression: 66-year-old single male with a history of polysubstance abuse and multiple medical issues assessed today for capacity to 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 Patient is able to satisfy capacity regarding this healthcare decision. Provisional Treatment Plan: 1. Continue psychotropics as currently ordered. 2. Patient has capacity for the health care decision in question. Thank you for including psychiatry in this case we will sign off. Please reconsult as needed for psychiatric issues or additional questions of capacity as they arise.
[2016-11-11 14:07] VITALS: BP 122/60
--- NOTE | 2016-11-11 17:04 | PN- Cardiology ---
Subjective Subjective: * No chest discomfort or shortness of breath. * hematuria is still present with decreasing H/H * atrial fibrillation * creatinine 2.1 Objective Vital Signs and I&Os Vital Signs Date Time Temp Pulse Resp B/P B/P Pulse O2 O2 Flow FiO2 Mean Ox Delivery Rate 11/11 1407 98.8 60 20 122/60 94 Nasal 2.0L Cannula 11/11 0940 68 158/70 11/11 0800 Nasal 2.0L Cannula 11/11 0721 97.6 58 20 160/72 97 Nasal 2.0L Cannula 11/10 2237 97.1 81 20 114/60 96 Room Air Intake & Output 11/11 1600 11/11 0800 11/11 0000 11/10 1600 11/10 0800 11/10 0000 Intake Total 700 270 260 800 350 450 Output Total 625 1400 Balance 75 270 260 -600 350 450 Intake, IV 30 20 0 0 Intake, Oral 700 240 240 800 350 450 Number 1 1 0 0 Bowel Movements Output, Urine 625 1400 Physical Exam: General: WD/ obese male in NAD; alert and oriented x 3 Neck: no JVD, no carotid bruit Heart: irregularly irregular w/o murmur Lungs: clear bilaterally Extremities: no edema, left BKA Assessment/Plan Assessment/Plan * This patient has been off his anticoagulation since admission and is at increased risk for a CVA. Unfortunately he continues to have hematuria. We will continue to hold anticoagulation for a while longer. Continue Metoprolol for now. Continue telemetry? No
[2016-11-11 20:53] VITALS: BP 160/80
[2016-11-12 06:30] VITALS: BP 148/80
[2016-11-12 08:14] LABS: ABSOLUTE BASOPHIL COUNT 0 /CUMM (0.0-0.2); ABSOLUTE EOSINOPHIL COUNT 0.2 /CUMM (0.0-0.7); ABSOLUTE GRANULOCYTE CT 5.7 /CUMM (1.4-6.5); ABSOLUTE LYMPH COUNT 0.6 /CUMM (1.2-3.4); ABSOLUTE MONOCYTE COUNT 0.5 /CUMM (0.10-0.60); BASOPHIL % 0.3 % (0.0-2.0); EOSINOPHIL % 2.9 % (0-5); GRANULOCYTE % 81.9 % (42.2-75.2); HEMATOCRIT 23.5 % (42-52); MEAN CORPUSCULAR HGB 31.4 PG (27.0-31.0); MEAN CORPUSCULAR HGB CONC 34.2 G/DL (33.0-37.0); MEAN CORPUSCULAR VOLUME 91.9 FL (80.0-94.0); MEAN PLATELET VOLUME 6.7 FL (7.4-10.4); PLATELET COUNT 319 /CUMM (130-400); RBC DISTRIBUTION WIDTH 15.9 % (11.5-14.5); RED BLOOD CELL CT 2.56 /CUMM (4.70-6.10); WHITE BLOOD CELL COUNT 6.9 /CUMM (4.8-10.8)
[2016-11-12 08:20] LABS: PT 11.6 SEC (9.4-12.5)
--- NOTE | 2016-11-12 08:48 | PN- Housestaff ---
BRENT ARCEO,ELSA 11/12/16 0847: Subjective Follow-up For: Hematuria Afib not on anticoagulation Subjective: I saw and examined the patient today morning He is sitting comfortably on the bed, no overnight events apart from itching in the right thigh region. Also reprots chronic low back pain - relieved with pain medications. CBI going on at bedside with bright red color urine in the bag. Painin the urethral region present. Pain in the BKA region with walking. Review of Systems Constitutional: Reports: see HPI. Comments: ROS negative except the above. Objective Last 24 Hrs of Vital Signs/I&O Vital Signs Date Time Temp Pulse Resp B/P B/P Pulse O2 O2 Flow FiO2 Mean Ox Delivery Rate 11/12 0630 98.2 60 20 148/80 99 Nasal Cannula 11/12 0000 Nasal 2.0L Cannula 11/11 2157 160/80 11/11 2053 97.7 65 18 160/80 98 Nasal 2.0L Cannula 11/11 1600 Nasal 2.0L Cannula 11/11 1407 98.8 60 20 122/60 94 Nasal 2.0L Cannula 11/11 0940 68 158/70 Intake & Output 11/12 1600 11/12 0800 11/12 0000 Intake Total 300 45 Output Total 1350 1 Balance -1050 44 Intake, Oral 300 45 Output, Stool 1 Output, Urine 1350 Physical Exam General Appearance: Alert, Oriented X3, Cooperative Skin: No Rashes, No Breakdown HEENT: Atraumatic, PERRLA, EOMI Neck: Supple Cardiovascular: Normal S1, Normal S2, No Murmurs Lungs: Normal Air Movement, mild rhochorous sounds present Abdomen: Normal Bowel Sounds, No Tenderness, distended with right sided hernia Neurological: Strength at 5/5 X4 Ext, Normal Tone, Sensation Intact Extremities: No Clubbing, No Cyanosis, right BKA - walks with a walker and prosthesis Current Medications: Current Medications Sig/Avery Start time Last Medication Dose Route Stop Time Status Admin Acetaminophen 1,000 MG Q6H PRN 10/31 1500 AC 11/01 N/A 1 UNIT IV 0651 Albuterol Sulfate 2 PUF Q6 11/11 1800 AC 11/12 INH 0617 Albuterol Sulfate 3 ML Q6 11/11 1200 DC INH Albuterol Sulfate 3 ML Q4P PRN 11/01 2300 DC 11/08 INH 1945 Albuterol Sulfate 2 PUF Q4-6 PRN PRN 10/30 0930 DC 11/04 INH 0400 Atorvastatin Calcium 20 MG DAILY 10/30 1000 AC 11/11 PO 0940 Bisacodyl 5 MG DAILY 11/05 1000 AC 11/10 PO 1153 Bisacodyl 10 MG DAILY NEEDED PRN 11/04 1915 AC OK Budesonide/ 2 PUF BID 10/30 1000 AC 11/11 Formoterol Fumarate INH 2158 Duloxetine HCl 60 MG DAILY 10/30 1000 AC 11/11 PO 0940 Folic Acid 1 MG DAILY 10/30 1000 AC 11/11 PO 0940 Gabapentin 600 MG TID 10/30 1000 AC 11/11 PO 2157 Insulin Aspart 0 TIDAC 10/31 1200 AC 11/10 SC 1329 Insulin Detemir 14 UNITS DAILY 10/30 1000 AC 11/11 SC 0938 Magnesium Hydroxide 30 ML ONE PRN 11/01 1545 AC 11/04 PO 1738 Metoprolol Tartrate 6.25 MG BID 11/07 1459 AC 11/11 PO 2157 Morphine Sulfate 15 MG Q12 11/11 2200 AC 11/11 PO 2156 Morphine Sulfate 30 MG Q12 11/05 1500 DC 11/11 PO 0939 Multivitamins 1 TAB DAILY 10/30 1000 AC 11/11 PO 0940 Nicotine 7 MG DAILY 11/11 2230 AC 11/12 TOP 0038 Oxycodone HCl 15 MG Q4P PRN 11/05 1430 AC 11/11 PO 1421 Patient Medication 1 ED .STK-MED ONE 11/11 1415 OR Teaching ED 11/11 1416 Polyethylene Glycol 17 GM DAILY 11/01 1544 AC 11/10 PO 1154 Senna/Docusate Sodium 1 TAB BID PRN 11/01 1545 AC 11/06 PO 0859 Assessment/Plan Assessment: 66-year-old gentleman with past medical history of prostate cancer status post radiation hepatitis C status post treatment, hypertension, diabetes, infective endocarditis, afib refractory to cardioversion intially on coumadin which was stopped due to GI bleed mitral regurgitation with prolapse, status post mitral valve repair with a Maze procedure performed in November of 2010, diabetes, left leg below-knee amputation, opiate dependence, alcohol overuse, alcohol withdrawal seizures, GI bleed, MRSA bacteremia, who presented to the ED on the evening of 10/29/2016, for Alcohol withdrawal symptoms and gross hematuria. #Acute blood loss anemia, secondary to gross hematuria: Hb today 7.8. Stable since yesterday. Type and screen sent yesterday. Will hold off transfusion for goal >7. * Patient has history of prostate cancer. USG of the renal system revealed a large bladder mass suggestive of hematoma as it was avascular correlating with clinical picture. * Patient had cystoscopy on 11/01/16 showed massive blood clot in the bladder, diffuse oozing from bladder mucosa with most of the bleeding at the 12 o'clock position just inside the bladder neck. 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 Urine culture positive for Escherichia coli, patient finished course of ciprofloxacin of 7 days, last dose 11/06/16. His H&H is stable. * CBC daily * Recommendations regarding the possibility of hyperbaric oxygen for hemorrhagic radiation cystitis if gross hematuria persist. Per urology possible intervention next week. #Alcohol detox * Completed detox yesterday with last dose of Librium. Not in withdrawal currently. #Atrial fibrillation/hypertension/hyperlipidemia Patient has [id number] Score or 3 points, he has 3.2% risk of stroke per year and 4.6% risk of stroke/TIA/systemic embolism. * Not on anticoagulation now. * Metoprolol 25 mg * Atorvastatin 20 mg * Telemetry monitoring was discontinued per patient's request, after explaining the need to continuously monitor his cardiac activities, given that he has significant pauses. He has full capacity to understand the situation and choose the treatment plan, including the consequences of continuing telemetry and not continuing telemetry. He understands that if he is not under telemetry monitoring, significant cardiac events can be missed which can have a detrimental effect on his health. This was also discussed with Patternmaker [employer]. #History of chronic kidney disease * repeat renal function daily #Diabetes mellitus: * Fingerstick glucose * Levemir 14 units daily * continue insulin scale * Consistent carbohydrate 3 #According to patient's request, and nebulizations have been now changed to metered-dose inhaler. A repeat chest x-ray was done which showed resolution of pulmonary airspace opacities. #According to patient's request, pain medications have been reduced from 30 mg morphine continous release form oral to 15 mg oral morphine continuous release form today. Will reassess pain management tomorrow. Diabetic diet DVT prophylaxis is mechanical only because of ongoing blood loss Full code Problem List: 1. Alcohol dependence 2. Chronic pain 3. Alcohol dependence 4. Diabetes mellitus 5. Gross hematuria Pain Ratin Pain Location: back pain Pain Goal: Pain 4 or less Pain Plan: tylenol prn Tomorrow's Labs & Rationales: cbc to monitor H&H LUZ MARIA CARTER MD 11/12/16 1215: Attending MD Review Statement Attending Statement Attending MD Statement: examined this patient, discuss w/resident/PA/HYDROELECTRIC STATION OPERATOR CHIEF, agreed w/resident/PA/HYDROELECTRIC STATION OPERATOR CHIEF, discussed with nursing, reviewed images Attending Assessment/Plan: Patient continues to be on CBI with ongoing hematuria. He continues to have bright red urine and some clots. Off note he has difficulty cooperating and often is found disconnected to the CBI tubing. He has multiple medical issues including atrial fibrillation, chronic heart failure, diabetes, COPD and previous prostate CA with radiation, the hematuria right now is being blamed on likely radiation cystitis. He is actively being evaluated for the possibility of hyperbaric oxygen therapy for radiation cystitis vs. other forms of therapy because as soon as the CBI is stopped he continues to have hematuria. He has chronic anemia ,right now his crit is stable. He's required multiple units of blood and will need to watch that closely. He cannot be on any form of anticoagulation for the A. fib right now as he has active hematuria..
[2016-11-12 15:40] VITALS: BP 158/86
[2016-11-12 22:53] VITALS: BP 156/80
[2016-11-13 06:30] VITALS: BP 142/78
--- NOTE | 2016-11-13 06:32 | PN- Housestaff ---
SHIRA FOUNTAIN 11/13/16 0631: Subjective Follow-up For: Hematuria A. 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 He denies any shortness of breath or coughing. He feels like his respiratory symptoms has improved significantly and is off oxygen citing that he has been saturating well. Review of CBI collection bag it is almost daniella red. Review of Systems Constitutional: Denies: chills, fever. Cardiovascular: Denies: chest pain, palpitations. Respiratory: Denies: cough, short of breath. Gastrointestinal: Denies: abdominal pain, nausea, vomiting. Genitourinary: Reports: hematuria. Musculoskeletal: Denies: no symptoms. Comments: All other systems reviewed and are negative Objective Last 24 Hrs of Vital Signs/I&O Vital Signs Date Time Temp Pulse Resp B/P B/P Pulse O2 O2 Flow FiO2 Mean Ox Delivery Rate 11/13 0800 Room Air 11/13 0630 98.6 93 20 142/78 96 Room Air 11/12 2253 98.0 80 20 156/80 98 Room Air 11/12 2158 80 156/80 11/12 1540 98.7 74 20 158/86 100 Intake & Output 11/13 1600 11/13 0800 11/13 0000 Intake Total 500 500 Output Total 3200 1000 Balance -2700 -500 Intake, Oral 500 500 Number 1 Bowel Movements Output, Urine 3200 1000 Physical Exam General Appearance: Alert, Oriented X3, Cooperative, No Acute Distress Skin: No Breakdown Skin Temp/Moisture Exam: Warm/Dry Sepsis Skin Exam (color): Normal for Ethnicity HEENT: Atraumatic, Mucous Membr. moist/pink Neck: Supple, No JVD Cardiovascular: No Murmurs, irregularly irregular Lungs: Clear to Auscultation, Normal Air Movement Abdomen: Normal Bowel Sounds, Soft, No Tenderness Neurological: Normal Speech, Normal Tone Extremities: No Clubbing, No Cyanosis, left BKA Current Medications: Current Medications Sig/Avery Start time Last Medication Dose Route Stop Time Status Admin Acetaminophen 1,000 MG Q6H PRN 10/31 1500 AC 11/01 N/A 1 UNIT IV 0651 Albuterol Sulfate 2 PUF Q6 11/11 1800 AC 11/13 INH 0623 Atorvastatin Calcium 20 MG DAILY 10/30 1000 AC 11/12 PO 0846 Bisacodyl 5 MG DAILY 11/05 1000 AC 11/10 PO 1153 Bisacodyl 10 MG DAILY NEEDED PRN 11/04 1915 AC OH Budesonide/ 2 PUF BID 10/30 1000 AC 11/12 Formoterol Fumarate INH 2202 Duloxetine HCl 60 MG DAILY 10/30 1000 AC 11/12 PO 0846 Folic Acid 1 MG DAILY 10/30 1000 AC 11/12 PO 0846 Gabapentin 600 MG TID 10/30 1000 AC 11/12 PO 2157 Insulin Aspart 0 TIDAC 10/31 1200 AC 11/10 SC 1329 Insulin Detemir 14 UNITS DAILY 10/30 1000 AC 11/12 SC 0843 Magnesium Hydroxide 30 ML ONE PRN 11/01 1545 AC 11/04 PO 1738 Metoprolol Tartrate 6.25 MG BID 11/07 1459 AC 11/12 PO 2158 Morphine Sulfate 15 MG Q12 11/11 2200 AC 11/12 PO 2158 Multivitamins 1 TAB DAILY 10/30 1000 AC 11/12 PO 0845 Nicotine 7 MG DAILY 11/11 2230 AC 11/12 TOP 0843 Oxycodone HCl 15 MG Q4P PRN 11/05 1430 AC 11/12 PO 1345 Polyethylene Glycol 17 GM DAILY 11/01 1544 AC 11/10 PO 1154 Senna/Docusate Sodium 1 TAB BID PRN 11/01 1545 AC 11/06 PO 0859 Last 24 Hrs of Lab/Manny Results Last 24 Hrs of Labs/Mics: Laboratory Tests 11/13/16 0620: CBC w Diff NO MAN DIFF REQ, RBC 2.24 L, MCV 91.8, MCH 30.7, RDW 16.4 H, MPV 6.8 L, Gran % 80.6 H, Lymphocytes % 8.5 L, Monocytes % 7.4, Eosinophils % 3.2 , Basophils % 0.3, Absolute Granulocytes 4.6, Absolute Lymphocytes 0.5 L, Absolute Monocytes 0.4, Absolute Eosinophils 0.2, Absolute Basophils 0, PUBS MCHC 33.5 Assessment/Plan Assessment: 66-year-old gentleman with past medical history of prostate cancer status post radiation hepatitis C status post treatment, hypertension, diabetes, infective endocarditis, afib refractory to cardioversion intially on coumadin which was stopped due to GI bleed mitral regurgitation with prolapse, status post mitral valve repair with a Maze procedure performed in November of 2010, diabetes, left leg below-knee amputation, opiate dependence, alcohol overuse, alcohol withdrawal seizures, GI bleed, MRSA bacteremia, who presented to the ED on the evening of 10/29/2016, for Alcohol withdrawal symptoms and gross hematuria. Acute blood loss anemia, secondary to gross hematuria: Hb today 6.9. Have ordered 2 units of leukocyte reduced red blood cells, this patient has rare antibodies and requires extra screening currently there is 1 unit in the blood bank, patient to receive the unit while the blood is been supposed from [facility]. Patient has history of prostate cancer. USG of the renal system revealed a large bladder mass suggestive of hematoma as it was avascular correlating with clinical picture. Patient had cystoscopy on 11/01/16 showed massive blood clot in the bladder, diffuse oozing from bladder mucosa with most of the bleeding at the 12 o'clock position just inside the bladder neck. 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 Urine culture positive for Escherichia coli, patient finished course of ciprofloxacin of 7 days, last dose 11/06/16, he has remained afebrile ever since. Patient is awaiting to be most stable so that can undergo hyperbaric oxygen therapy for hemorrhagic radiation cystitis if gross hematuria persist. At the moment CBI cannot be discontinued for more than 15 minutes all the patient's needs sessions of 2 hours daily in the hyperbaric chamber. Alcohol withdrawal (resolved) Completed full course of Librium bhanu. Atrial fibrillation/hypertension/hyperlipidemia Patient has [id number] Score or 3 points, he has 3.2% risk of stroke per year and 4.6% risk of stroke/TIA/systemic embolism. Not on anticoagulation now due to continuous hematuria. Telemetry monitoring was discontinued per patient's request, after explaining the need to continuously monitor his cardiac activities, given that he has significant pauses. He has full capacity to understand the situation and choose the treatment plan, including the consequences of continuing telemetry and not continuing telemetry. He understands that if he is not under telemetry monitoring, significant cardiac events can be missed which can have a detrimental effect on his health. This was also discussed with Button Sewer Hand. History of chronic kidney disease Stable renal function Diabetes mellitus: Fingerstick glucose in the past 24 hours 92, 136, and 36, 146, 146, 155 Patient on consistent carbohydrate 3 diet. He gets Levemir 14 units daily and insulin sliding scale Continue with Accu-Cheks and diabetic management regimen Problem List: 1. Alcohol dependence 2. Diabetes mellitus type 2 3. PROSTATE CARCINOMA S/P RESECTI 4. Chronic pain 5. Diabetes mellitus 6. CKD (chronic kidney disease) 7. History of prostate cancer 8. Acute blood loss anemia Pain Ratin Pain Location: None Pain Goal: Remain pain free Pain Plan: Morphine ER Tomorrow's Labs & Rationales: cbc to follow up HB DVT/Prophylaxis: mechanical LUZ MARIA CARTER MD 11/13/16 1022: Attending MD Review Statement Attending Statement Attending MD Statement: examined this patient, discuss w/resident/PA/DEPUTY SHERIFF GENERALIST, agreed w/resident/PA/DEPUTY SHERIFF GENERALIST, reviewed EMR data (avail), reviewed images Attending Assessment/Plan: This is a very complex patient with multiple comorbidities who has been here since October 30. At this point the major issue is the daniella hematuria with acute on chronic blood loss anemia and the fact that we cannot stop the CBI even for 15 minutes without him having clots. This is been attributed to radiation cystitis and we are pursuing treatments of hyperbaric oxygen versus other options recommended by urology. Today will transfuse him because of the hemoglobin of 6.9. His lung opacities have cleared up significantly on a chest x-ray done on November 11 and will need to talk to Dr. Benito again tomorrow about hyperbaric therapy for radiation cystitis causing ongoing hematuria. He has A. fib but he is off anticoagulation because of this bleeding.
[2016-11-13 08:33] LABS: ABSOLUTE BASOPHIL COUNT 0 /CUMM (0.0-0.2); ABSOLUTE EOSINOPHIL COUNT 0.2 /CUMM (0.0-0.7); ABSOLUTE GRANULOCYTE CT 4.6 /CUMM (1.4-6.5); ABSOLUTE LYMPH COUNT 0.5 /CUMM (1.2-3.4); ABSOLUTE MONOCYTE COUNT 0.4 /CUMM (0.10-0.60); BASOPHIL % 0.3 % (0.0-2.0); EOSINOPHIL % 3.2 % (0-5); GRANULOCYTE % 80.6 % (42.2-75.2); HEMATOCRIT 20.5 % (42-52); MEAN CORPUSCULAR HGB 30.7 PG (27.0-31.0); MEAN CORPUSCULAR HGB CONC 33.5 G/DL (33.0-37.0); MEAN CORPUSCULAR VOLUME 91.8 FL (80.0-94.0); MEAN PLATELET VOLUME 6.8 FL (7.4-10.4); PLATELET COUNT 270 /CUMM (130-400); RBC DISTRIBUTION WIDTH 16.4 % (11.5-14.5); RED BLOOD CELL CT 2.24 /CUMM (4.70-6.10); WHITE BLOOD CELL COUNT 5.7 /CUMM (4.8-10.8)
--- NOTE | 2016-11-13 10:35 | PN- Urology ---
Surgical Brief Attending Note Brief Attending Note: PT WITH RADIATION CYSTITIS:CONTRIBUTING TO DROP IN H/H;BLOOD LOSS ANEMIA. VSS. CBI PINK ON SLOW RATE WITH NO CLOTS. ABD SOFT. CONSULT FOR HYPERBARIC TX FOR RADIATION CYSTITIS REQUESTED; CBI WITH ALUM NOT AVAILABLE AT [place] PER PHARMACY. PLAN: CONTINUE CBI WITH NS, AND AWAITING HYPERBARIC CONSULT.
[2016-11-13 14:00] VITALS: BP 124/80
[2016-11-13 19:57] LABS: ABSOLUTE BASOPHIL COUNT 0 /CUMM (0.0-0.2); ABSOLUTE EOSINOPHIL COUNT 0.2 /CUMM (0.0-0.7); ABSOLUTE GRANULOCYTE CT 4.4 /CUMM (1.4-6.5); ABSOLUTE LYMPH COUNT 0.4 /CUMM (1.2-3.4); ABSOLUTE MONOCYTE COUNT 0.5 /CUMM (0.10-0.60); BASOPHIL % 0.3 % (0.0-2.0); EOSINOPHIL % 3.2 % (0-5); GRANULOCYTE % 79.5 % (42.2-75.2); MEAN CORPUSCULAR HGB 30.6 PG (27.0-31.0); MEAN CORPUSCULAR HGB CONC 33.2 G/DL (33.0-37.0); MEAN CORPUSCULAR VOLUME 92.3 FL (80.0-94.0); MEAN PLATELET VOLUME 6.9 FL (7.4-10.4); PLATELET COUNT 259 /CUMM (130-400); RBC DISTRIBUTION WIDTH 16.6 % (11.5-14.5); WHITE BLOOD CELL COUNT 5.6 /CUMM (4.8-10.8)
[2016-11-13 20:17] LABS: HEMATOCRIT 25.9 % (42-52)
[2016-11-13 22:46] VITALS: BP 150/80
[2016-11-14 06:30] VITALS: BP 142/80
--- NOTE | 2016-11-14 07:03 | PN- Housestaff ---
ROMMEL ARCEO,NATA 11/14/16 0703: Subjective Follow-up For: Hematuria; A. fib not on anticoagulation; Prostatitis; Acute blood loss anemia. Complaints: ongoing hematuria Subjective: I followed up and examined the patient today. He is resting at the site of breath, with continuous bladder irrigation going on, draining light pink colored urine in the urine bag. His vitals have been stable, and he received 1 unit of blood yesterday with a posttransfusion hemoglobin/hct of 8.6/25.9. This morning, he is concerned about when he would get the hyperbaric treatment. He also mentioned about some burning discomfort in his urinary tract. No leakage from [facility] though. Review of Systems Constitutional: Reports: see HPI. Genitourinary: Reports: see HPI. Objective Last 24 Hrs of Vital Signs/I&O Vital Signs Date Time Temp Pulse Resp B/P B/P Pulse O2 O2 Flow FiO2 Mean Ox Delivery Rate 11/14 0630 98.4 83 20 142/80 98 Room Air 11/13 2246 97.6 75 20 150/80 94 11/13 2108 62 124/80 11/13 1600 Room Air 11/13 1400 98.3 64 20 124/80 98 Nasal 1.0L Cannula 11/13 0954 60 120/80 Intake & Output 11/14 1600 11/14 0800 11/14 0000 Intake Total 600 490 Output Total 2500 1150 Balance -1900 -660 Intake, IV 130 Intake, Oral 600 360 Output, Urine 2500 1150 Physical Exam General Appearance: Alert, Oriented X3, Cooperative, No Acute Distress Assessment/Plan Assessment: 66-year-old gentleman with past medical history of prostate cancer status post radiation hepatitis C status post treatment, hypertension, diabetes, infective endocarditis, afib refractory to cardioversion intially on coumadin which was stopped due to GI bleed mitral regurgitation with prolapse, status post mitral valve repair with a Maze procedure performed in November of 2010, diabetes, left leg below-knee amputation, opiate dependence, alcohol overuse, alcohol withdrawal seizures, GI bleed, MRSA bacteremia, who presented to the ED on the evening of 10/29/2016, for Alcohol withdrawal symptoms and gross hematuria. Acute blood loss anemia, secondary to gross hematuria: Patient's H&H today is 8.7/25.9 after 2 units of blood transfusion yesterday when the hemoglobin was 6.9. He is still on continuous bowel irritation due to daniella hematuria. 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 Patient's hematuria has been attributed to radiation cystitis. His CBI cannot be stopped for more than 10-15 minutes as he starts having clots and obstruction. For the same reason, he is not yet ready for hyperbaric oxygen therapy. Following Dr. Mack's suggestion in this regards. * Dr. Acharya was contacted today who mentioned that in this situation, he would like to take the patient to OR on Monday for fulguration and possible formalin installation in the bladder. He will be placed nothing by mouth from midnight tomorrow. * Patient has fair blood group and has antibodies, thus cannot be given any blood from the blood bank. It has to be ordered from [facility] and takes few hours to reach, thus in case of worsening hematuria, [place] and blood bank at [place] should be contacted immediately as well as urology service. * Of note, urine culture was positive for Escherichia coli and patient has finished a course of ciprofloxacin for 7 days, last dose was on 11/06/16, he has remained afebrile ever since. Alcohol withdrawal (resolved) Completed full course of Librium bhanu. Atrial fibrillation/hypertension/hyperlipidemia Patient has [id number] Score or 3 points, he has 3.2% risk of stroke per year and 4.6% risk of stroke/TIA/systemic embolism. Not on anticoagulation now due to continuous hematuria. Telemetry monitoring was discontinued per patient's request, after explaining the need to continuously monitor his cardiac activities, given that he has significant pauses. He has full capacity to understand the situation and choose the treatment plan, including the consequences of continuing telemetry and not continuing telemetry. He understands that if he is not under telemetry monitoring, significant cardiac events can be missed which can have a detrimental effect on his health. This was also discussed with Assistance Specialist davian in telemetry. History of chronic kidney disease Stable renal function, creatinine today is 2.1 Diabetes mellitus: Fingerstick glucose in the past 24 hours 106, 119, 213, 136 Patient on consistent carbohydrate 3 diet. He gets Levemir 14 units daily and insulin sliding scale Continue with Accu-Cheks and diabetic management regimen -He does not have any more hypoglycemic episode. Diabetic diet Pain management is adequate with current plan DVT prophylaxis is mechanical only because of ongoing blood loss Full code Problem List: 1. Gross hematuria 2. Radiation cystitis Pain Ratin Pain Location: - Pain Goal: Pain 4 or less Pain Plan: prn Tomorrow's Labs & Rationales: CBC, BEP RAUL ARCEO,LUZ MARIA 11/14/16 1405: Attending MD Review Statement Attending Statement Attending MD Statement: examined this patient, discuss w/resident/PA/MECHANICAL ENGINEERING PROFESSOR, agreed w/resident/PA/MECHANICAL ENGINEERING PROFESSOR, reviewed EMR data (avail), discussed with nursing, reviewed images Attending Assessment/Plan: Patient required 2 units of blood yesterday for acute on chronic blood loss anemia in the setting of ongoing hematuria requiring continuous CBI. I spoke to Dr. Acharya and given the fact that we cannot stop the CBI long enough for effective hyperbaric oxygen therapy the plan is that he'll be taken to the OR on Monday for fulguration and possible formalin instillation. Dr. Kincaid is going to come and speak to the patient about this and we are going to watch his crit and renal function closely.
[2016-11-14 08:20] LABS: ABSOLUTE BASOPHIL COUNT 0 /CUMM (0.0-0.2); ABSOLUTE EOSINOPHIL COUNT 0.2 /CUMM (0.0-0.7); ABSOLUTE GRANULOCYTE CT 4.8 /CUMM (1.4-6.5); ABSOLUTE LYMPH COUNT 0.6 /CUMM (1.2-3.4); ABSOLUTE MONOCYTE COUNT 0.5 /CUMM (0.10-0.60); BASOPHIL % 0.4 % (0.0-2.0); EOSINOPHIL % 3.4 % (0-5); GRANULOCYTE % 77.6 % (42.2-75.2); HEMATOCRIT 25.1 % (42-52); MEAN CORPUSCULAR HGB 30.7 PG (27.0-31.0); MEAN CORPUSCULAR HGB CONC 33.4 G/DL (33.0-37.0); MEAN CORPUSCULAR VOLUME 91.9 FL (80.0-94.0); MEAN PLATELET VOLUME 6.9 FL (7.4-10.4); PLATELET COUNT 252 /CUMM (130-400); RBC DISTRIBUTION WIDTH 15.9 % (11.5-14.5); RED BLOOD CELL CT 2.73 /CUMM (4.70-6.10); WHITE BLOOD CELL COUNT 6.2 /CUMM (4.8-10.8)
--- NOTE | 2016-11-14 12:12 | PN- Urology ---
Surgical Brief Attending Note Brief Attending Note: Urine still bloody and patient requiring CBI. He was transfused over weekend. High risk for hyperbaric oxygen per Dr Mccall. Plan: Will plan cysto, attempted fulgeration of bleeding and formalin instillation into bladder on Monday under general anesthesia
[2016-11-14 14:11] VITALS: BP 132/64
[2016-11-14 22:29] VITALS: BP 146/90
[2016-11-15 07:03] VITALS: BP 142/80
--- NOTE | 2016-11-15 07:04 | PN- Urology ---
Subjective Subjective: No distress Still requires CBI for hematuria Objective Vital Signs and I&Os Vital Signs Date Time Temp Pulse Resp B/P B/P Pulse O2 O2 Flow FiO2 Mean Ox Delivery Rate 11/14 2228 97.7 73 20 146/90 95 Room Air 11/14 2047 62 132/64 11/14 1411 97.6 60 20 132/64 95 Room Air 11/14 0953 70 140/70 11/14 0925 70 140/70 Intake & Output 11/15 0800 11/15 0000 11/14 1600 11/14 0800 11/14 0000 11/13 1600 Intake Total 480 500 576 231 9455 Output Total 1100 1999 2500 1150 1110 Balance -620 -1500 -1900 -660 40 Intake, Blood 350 Product Intake, IV 130 Intake, Oral 480 500 600 360 800 Number 2 Bowel Movements Output, Urine 1100 1999 2500 1150 1110 Abd: soft and non tender Genitalia: 3 [address] Running at moderate rate. Drainage is pink to red Laboratory Tests 11/15 11/14 0640 0842 Chemistry Sodium Pending Potassium Pending Chloride Pending Carbon Dioxide Pending Anion Gap Pending BUN Pending Creatinine Pending BUN/Creatinine Ratio Pending Hematology CBC w Diff Pending WBC Pending RBC Pending Hgb Pending Hct Pending MCV Pending MCH Pending RDW Pending Plt Count Pending MPV Pending PUBS MCHC Pending Urines Urine Color Cancelled Urine Clarity Cancelled Urine pH Cancelled Ur Specific [place] Cancelled Urine Protein Cancelled Urine Ketones Cancelled Urine Nitrite Cancelled Urine Bilirubin Cancelled Urine Urobilinogen Cancelled Ur Leukocyte Esterase Cancelled Ur Microscopic Cancelled Urine Hemoglobin Cancelled Urine Glucose Cancelled Assessment/Plan Assessment/Plan Imp: 1. Continued hematuria likely due to radiation cystitis 2. Hx of RT for prostate ca Plan: 1. Continue CBI today 2. NPO after midnight tonight 3. Will plan to take to OR tomorrow for cystoscopy, fulgeration of bleeding, cystogram and instillation of intravesical formalin. Explained to patient in detail including risks, benefits and alternatives. Intravesical formalin has some potential significant side effects which patient was made aware of. With this in mind will use lowest dose possible, 1%. If he has continued bleeding post op then he would need to return to OR for higher dose which has higher risk of complications
--- NOTE | 2016-11-15 07:13 | PN- Housestaff ---
Subjective Follow-up For: Hematuria; A. fib not on anticoagulation; Prostatitis; Acute blood loss anemia. Complaints: hematuria Subjective: I followed up and examined the patient today. He is resting by the bedside, continuous bladder irrigation going on, complaining dark pink colored urine in the urine bag. His vitals have been stable, no overnight issues. He is waiting for the urologic procedure tomorrow. Review of Systems Constitutional: Reports: see HPI. Objective Last 24 Hrs of Vital Signs/I&O Vital Signs Date Time Temp Pulse Resp B/P B/P Pulse O2 O2 Flow FiO2 Mean Ox Delivery Rate 11/15 1600 97 Room Air 11/15 1429 97.5 63 20 138/76 95 11/15 1118 64 146/82 11/15 1117 64 146/82 11/15 0800 Room Air 11/15 0703 98.1 67 20 142/80 95 Room Air 11/14 2229 97.7 73 20 146/90 95 Room Air 11/14 2047 62 132/64 Intake & Output 11/15 1600 11/15 0800 11/15 0000 Intake Total 750 440 480 Output Total 1030 2200 1100 Balance -280 -1760 -620 Intake, Oral 750 440 480 Output, Urine 1030 2200 1100 Physical Exam General Appearance: Alert, Oriented X3, Cooperative, No Acute Distress, obese Other Physical Findings: HEENT: Atraumatic, PERRLA, EOMI, Mucous Membr. moist/pink Cardiovascular: Normal S1, Normal S2, No Murmurs, irregular Lungs: no change from yesterday, not in distress Abdomen: Normal Bowel Sounds, Soft, No Tenderness Extremities: No Clubbing, No Cyanosis, No Edema, LBKA CBI ongoing, with pink discolored urine in uro bag, DARKER TODAY Current Medications: Current Medications Sig/Avery Start time Last Medication Dose Route Stop Time Status Admin Acetaminophen 1,000 MG Q6H PRN 10/31 1500 AC 11/01 N/A 1 UNIT IV 0651 Albuterol Sulfate 2 PUF Q6 11/11 1800 AC 11/15 INH 1741 Atorvastatin Calcium 20 MG DAILY 10/30 1000 AC 11/15 PO 1118 Bisacodyl 5 MG DAILY 11/05 1000 AC 11/14 PO 0924 Bisacodyl 10 MG DAILY NEEDED PRN 11/04 1915 AC PA Budesonide/ 2 PUF BID 10/30 1000 AC 11/15 Formoterol Fumarate INH 1118 Duloxetine HCl 60 MG DAILY 10/30 1000 AC 11/15 PO 1116 Folic Acid 1 MG DAILY 10/30 1000 AC 11/15 PO 1118 Formaldehyde Solution 25 ML ONCE ONE 11/16 0800 AC Sodium Chloride 225 ML EXT 11/16 0859 Gabapentin 600 MG TID 10/30 1000 AC 11/15 PO 1708 Insulin Aspart 0 TIDAC 10/31 1200 AC 11/15 SC 1723 Insulin Detemir 14 UNITS DAILY 10/30 1000 AC 11/15 SC 1116 Magnesium Hydroxide 30 ML ONE PRN 11/01 1545 AC 11/04 PO 1738 Metoprolol Tartrate 6.25 MG BID 11/07 1459 AC 11/15 PO 1118 Morphine Sulfate 15 MG Q12 11/11 2200 AC 11/15 PO 1117 Multivitamins 1 TAB DAILY 10/30 1000 AC 11/15 PO 1117 Nicotine 7 MG DAILY 11/11 2230 AC 11/15 TOP 1117 Oxycodone HCl 15 MG Q4P PRN 11/05 1430 AC 11/15 PO 0246 Patient Medication 1 ED .STK-MED ONE 11/15 1423 AR Teaching ED 11/15 1424 Polyethylene Glycol 17 GM DAILY 11/01 1544 AC 11/10 PO 1154 Senna/Docusate Sodium 1 TAB BID PRN 11/01 1545 AC 11/06 PO 0859 Tamsulosin HCl 0.4 MG DAILY 11/14 1000 AC 11/15 PO 1117 Last 24 Hrs of Lab/Manny Results Last 24 Hrs of Labs/Mics: Laboratory Tests 11/15/16 0640: Anion Gap 11, Estimated GFR 32 L, BUN/Creatinine Ratio 26.2 H, CBC w Diff NO MAN DIFF REQ, RBC 2.66 L, MCV 92.1, MCH 31.3 H, RDW 15.8 H, MPV 6.9 L, Gran % 82.2 H, Lymphocytes % 7.3 L, Monocytes % 6.9, Eosinophils % 3.4, Basophils % 0.2, Absolute Granulocytes 5.4, Absolute Lymphocytes 0.5 L, Absolute Monocytes 0.5, Absolute Eosinophils 0.2, Absolute Basophils 0, PUBS MCHC 34.0 Assessment/Plan Assessment: 66-year-old gentleman with past medical history of prostate cancer status post radiation hepatitis C status post treatment, hypertension, diabetes, infective endocarditis, afib refractory to cardioversion intially on coumadin which was stopped due to GI bleed mitral regurgitation with prolapse, status post mitral valve repair with a Maze procedure performed in November of 2010, diabetes, left leg below-knee amputation, opiate dependence, alcohol overuse, alcohol withdrawal seizures, GI bleed, MRSA bacteremia, who presented to the ED on the evening of 10/29/2016, for Alcohol withdrawal symptoms and gross hematuria. Acute blood loss anemia, secondary to gross hematuria: Patient's H&H today is 8.7/25.9 after 2 units of blood transfusion yesterday when the hemoglobin was 6.9. He is still on continuous bowel irritation due to daniella hematuria. 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 Patient's hematuria has been attributed to radiation cystitis. His CBI cannot be stopped for more than 10-15 minutes as he starts having clots and obstruction. For the same reason, he is not yet ready for hyperbaric oxygen therapy. Following Dr. Mack's suggestion in this regards. * According to Dr. Acharya, the patient will undergo fulguration and possible formalin installation in the bladder tomorrow. He has been placed nothing by mouth from midnight. * Patient has blood group and has rare antibodies, thus cannot be given any blood from the blood bank. It has to be ordered from [facility] and takes few hours to reach, thus in case of worsening hematuria, [place] and blood bank at [place] should be contacted immediately as well as urology service. * Of note, urine culture was positive for Escherichia coli and patient has finished a course of ciprofloxacin for 7 days, last dose was on 11/06/16, he has remained afebrile ever since. Alcohol withdrawal (resolved) Completed full course of Librium bhanu. Atrial fibrillation/hypertension/hyperlipidemia Patient has [id number] Score or 3 points, he has 3.2% risk of stroke per year and 4.6% risk of stroke/TIA/systemic embolism. Not on anticoagulation now due to continuous hematuria. Telemetry monitoring was discontinued per patient's request, after explaining the need to continuously monitor his cardiac activities, given that he has significant pauses. He has full capacity to understand the situation and choose the treatment plan, including the consequences of continuing telemetry and not continuing telemetry. He understands that if he is not under telemetry monitoring, significant cardiac events can be missed which can have a detrimental effect on his health. This was also discussed with Corporate Fitness Program Coordinator davian in telemetry. History of chronic kidney disease Stable renal function, creatinine today is 2.1 Diabetes mellitus: Fingerstick glucose in the past 24 hours is under control. Patient on consistent carbohydrate 3 diet. He gets Levemir 14 units daily and insulin sliding scale Continue with Accu-Cheks and diabetic management regimen Diabetic diet Pain management is adequate with current plan, (decreased per patient's request) DVT prophylaxis is mechanical only because of ongoing blood loss Full code Problem List: 1. Radiation cystitis 2. Gross hematuria 3. Acute blood loss anemia 4. CKD (chronic kidney disease) 5. History of prostate cancer 6. Diabetes mellitus 7. Alcohol dependence 8. Afib 9. HTN (hypertension) 10. COPD 11. HEPATITIS C 12. PROSTATE CARCINOMA S/P RESECTI Pain Ratin Pain Location: lower abd when present Pain Goal: Pain 4 or less Pain Plan: prn Tomorrow's Labs & Rationales: CBC for anemia
--- NOTE | 2016-11-15 08:42 | PN- Wound Care ---
Subjective Subjective: Patient continues to bleed and requires continuous bladder irrigation without which he reportedly clots and obstructs. He is scheduled for the OR tomorrow Objective Vital Signs and I&Os Vital Signs Result Date Time Pulse Ox 95 11/15 07 B/P 142/80 11/15 07 O2 Delivery Room Air 11/15 702 Temp 98.1 11/15 07 Pulse 67 11/15 0703 Resp 20 11/15 702 O2 Flow Rate 1.0L 11/13 1400 Intake & Output 11/15 0000 11/14 1600 11/14 0800 Intake Total 480 500 600 Output Total 1100 2000 2500 Balance -620 -1500 -1900 Intake, Oral 480 500 600 Output, Urine 1100 2000 2500 Room air oxygen saturation 95% exam of his chest shows decreased wheezing after initiation of Symbicort Impression/Plan Impression/Plan Impression/Plan: 66-year-old gentleman with multiple medical problems has had 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 Patient is high risk for potential complications of hyperbaric oxygen therapy given multitude of medical problems and evidence of active bronchospasm. If Acute medical issues can be improved he is a candidate for hyperbaric oxygen at 2 YAS 5 200% 90 minutes of therapeutic treatment time. Understanding that any improvement would not occur for at least 2 weeks. Ideally treatment should be deferred to the outpatient setting however if his hematuria cannot otherwise be controlled inpatient hyperbarics can be started making his cardiopulmonary status can be optimized. He would need pulmonary function testing and more aggressive optimization of airway function. Airway function appears improved however CBI cannot be maintained during hyperbaric oxygen treatments and I'm told they cannot be discontinued even temporarily. If CBI can be discontinued then hyperbaric oxygen therapy can be started though understanding any beneficial effects will not be seen for at least 2 weeks
--- NOTE | 2016-11-15 08:54 | Transfer of Care Summary ---
Hospital Course Course Hospital Course: This is a 66-year-old gentleman with history of alcohol dependence, opiate dependence, hepatitis C, piate dependence, diabetes, left leg below-knee amputation, alcohol overuse, alcohol withdrawal seizures, GI bleed, infective endocarditis, MRSA bacteremia, presented to the ED requesting detox. Patient has had alcohol withdrawal seizures in the past, required ICU admission and does admit to being intubated as well. In the ED, patient started having visual associations when he was trying to "catch avatar". He denies any suicidal or homicidal ideations. Patient states that he's been having off-and-on clots with urination, persistent burning with urination for the last few weeks. He has been unable to follow-up with his primary urologist Dr. Mattson, because he missed his appointment. In the ED to slightly difficult to catheterize the patient and later was successfully catheterized by urologist. He was admitted to general medicine floor and he managed him for the following conditions. Detail of the ICU course of the transfer of care from ICU Alcohol dependence As explained above the patient has significant alcohol dependence history. She was started on Ativan taper multivitamin thiamine and Ativan per ZEE.-to be admitted to medical floor. Ativan perceived a protocol, banana bag. MVI and thiamine. Patient continued with detoxification well in the GM floor and later when transferred to ICU for further management. He completed his taper well without any complications. Hematuria: Patient hematuria continued even after placement of a king catheter. He was put on a CBI. Subsequent tests showed significant drop in hemoglobin. The patient was transferred to the ICU for close monitoring of his severe anemia. This patient has antibodies which necessitates blood to be solicited directly from [facility]. During the course of the admission up to November 15 he had received a total of 9 units of blood. The failure of arrest of hematuria necessitated the patient to have formalin irrigation in the bladder to help arrest bleeding...............(Explain about the procedure to be done November 16) Opiate dependence: Patient has chronic pain and takes opiates. However, the patient request his extended release morphine to be decreased to 15mg from 30 sighting that he does not take the medication regularly at home. His pain remained controlled during the stay. Please adjust his home discharge medication to reflect his home dose. Paroxysmal atrial fibrillation: Patient has history of PAF. EKG on admission revealed atrial fibrillation at a controlled rate. Patient currently was on Eliquis at home. Given his persistence hematuria elliquis was stopped during the course of this admssion. The patient has high risk of clot but the benefit of stopping surpassed the risk. After admission in the ICU the patient was supposed to be in telemetry given posses observed during the stay but he chose not to be on cafeteria monitor hence transfer to general medicine floor. At the end of management will decide on the state of anticoagulation given his significant hematuria............... Diabetes type 2 Patient has history of diabetes mellitus. During the course of this admission he was maintained on insulin with good glucose control. Assessment/Plan: Outlined under hospital course
[2016-11-15 09:10] LABS: ABSOLUTE BASOPHIL COUNT 0 /CUMM (0.0-0.2); ABSOLUTE EOSINOPHIL COUNT 0.2 /CUMM (0.0-0.7); ABSOLUTE GRANULOCYTE CT 5.4 /CUMM (1.4-6.5); ABSOLUTE LYMPH COUNT 0.5 /CUMM (1.2-3.4); ABSOLUTE MONOCYTE COUNT 0.5 /CUMM (0.10-0.60); BASOPHIL % 0.2 % (0.0-2.0); EOSINOPHIL % 3.4 % (0-5); GRANULOCYTE % 82.2 % (42.2-75.2); HEMATOCRIT 24.5 % (42-52); MEAN CORPUSCULAR HGB 31.3 PG (27.0-31.0); MEAN CORPUSCULAR VOLUME 92.1 FL (80.0-94.0); MEAN PLATELET VOLUME 6.9 FL (7.4-10.4); PLATELET COUNT 241 /CUMM (130-400); RBC DISTRIBUTION WIDTH 15.8 % (11.5-14.5); RED BLOOD CELL CT 2.66 /CUMM (4.70-6.10); WHITE BLOOD CELL COUNT 6.6 /CUMM (4.8-10.8)
[2016-11-15 14:29] VITALS: BP 138/76
[2016-11-15 22:24] VITALS: BP 160/90
[2016-11-16 06:30] VITALS: BP 144/80
[2016-11-16 08:16] LABS: ABSOLUTE BASOPHIL COUNT 0 /CUMM (0.0-0.2); ABSOLUTE EOSINOPHIL COUNT 0.2 /CUMM (0.0-0.7); ABSOLUTE GRANULOCYTE CT 5.6 /CUMM (1.4-6.5); ABSOLUTE LYMPH COUNT 0.6 /CUMM (1.2-3.4); ABSOLUTE MONOCYTE COUNT 0.5 /CUMM (0.10-0.60); BASOPHIL % 0.3 % (0.0-2.0); EOSINOPHIL % 2.6 % (0-5); HEMATOCRIT 24.4 % (42-52); MEAN CORPUSCULAR HGB CONC 34.9 G/DL (33.0-37.0); MEAN CORPUSCULAR VOLUME 94.5 FL (80.0-94.0); MEAN PLATELET VOLUME 7.1 FL (7.4-10.4); PLATELET COUNT 235 /CUMM (130-400); RBC DISTRIBUTION WIDTH 16.3 % (11.5-14.5); RED BLOOD CELL CT 2.59 /CUMM (4.70-6.10)
--- NOTE | 2016-11-16 11:18 | PN- Housestaff ---
Subjective Follow-up For: Hematuria; A. fib not on anticoagulation; Prostatitis; Acute blood loss anemia. Complaints: no complaints Subjective: I followed up and examined the patient today. He is resting comfortably at the side of his bed, does not offer any complaints, vitals have been stable overnight, no overnight issues. He still has continuous bladder irrigation going, with pink colored urine collected in the urine bag. He is eagerly awaiting his urological procedure later today. He is to go for cystoscopy and fulguration of urinary bladder with formalin installation in the bladder today. Review of Systems Constitutional: Reports: see HPI. Objective Last 24 Hrs of Vital Signs/I&O Vital Signs Date Time Temp Pulse Resp B/P B/P Pulse O2 O2 Flow FiO2 Mean Ox Delivery Rate 11/16 1008 140/80 11/16 1008 140/80 11/16 0630 97.9 73 20 144/80 93 Room Air 11/15 2224 97.6 86 20 160/90 95 11/15 2124 80 160/90 11/15 1600 96 Room Air 11/15 1600 97 Room Air 11/15 1429 97.5 63 20 138/76 95 Intake & Output 11/16 1600 11/16 0800 11/16 0000 Intake Total 9000 Output Total 600 Balance 8400 Intake, Other 9000 Number 1 Bowel Movements Output, Urine 600 Physical Exam General Appearance: Alert, Oriented X3, Cooperative, No Acute Distress, obese Other Physical Findings: HEENT: Atraumatic, PERRLA, EOMI, Mucous Membr. moist/pink Cardiovascular: Normal S1, Normal S2, irregular Lungs: no change from yesterday, not in distress Abdomen: Normal Bowel Sounds, Soft, No Tenderness Extremities: No Clubbing, No Cyanosis, No Edema, LBKA CBI ongoing, with pink discolored urine in uro bag, light pink than yesterday Current Medications: Current Medications Sig/Avery Start time Last Medication Dose Route Stop Time Status Admin Acetaminophen 1,000 MG Q6H PRN 10/31 1500 AC 11/01 N/A 1 UNIT IV 0651 Albuterol Sulfate 2 PUF Q6 11/11 1800 AC 11/16 INH 0610 Atorvastatin Calcium 20 MG DAILY 10/30 1000 AC 11/16 PO 1005 Bisacodyl 5 MG DAILY 11/05 1000 AC 11/14 PO 0924 Bisacodyl 10 MG DAILY NEEDED PRN 11/04 1915 AC MN Budesonide/ 2 PUF BID 10/30 1000 AC 11/16 Formoterol Fumarate INH 1015 Dextrose/Sodium 1,000 ML Q13H 11/16 0915 AC 11/16 Chloride IV 1015 Duloxetine HCl 60 MG DAILY 10/30 1000 AC 11/16 PO 1006 Folic Acid 1 MG DAILY 10/30 1000 AC 11/16 PO 1005 Formaldehyde Solution 25 ML ONCE ONE 11/16 0800 DC Sodium Chloride 225 ML EXT 11/16 0859 Gabapentin 600 MG TID 10/30 1000 AC 11/16 PO 1005 Insulin Aspart 0 TIDAC 10/31 1200 DC 11/15 SC 1723 Insulin Detemir 14 UNITS DAILY 10/30 1000 AC 11/16 SC 1004 Insulin Human Regular 0 Q6 11/16 1200 AC SC Magnesium Hydroxide 30 ML ONE PRN 11/01 1545 AC 11/04 PO 1738 Metoprolol Tartrate 6.25 MG BID 11/07 1459 AC 11/16 PO 1008 Morphine Sulfate 15 MG Q12 11/11 2200 AC 11/16 PO 1014 Multivitamins 1 TAB DAILY 10/30 1000 AC 11/16 PO 1005 Nicotine 7 MG DAILY 11/11 2230 AC 11/15 TOP 1117 Oxycodone HCl 15 MG Q4P PRN 11/05 1430 AC 11/16 PO 0001 Patient Medication 1 ED .STK-MED ONE 11/15 1423 ME Teaching ED 11/15 1424 Polyethylene Glycol 17 GM DAILY 11/01 1544 AC 11/10 PO 1154 Senna/Docusate Sodium 1 TAB BID PRN 11/01 1545 AC 11/06 PO 0859 Tamsulosin HCl 0.4 MG DAILY 11/14 1000 AC 11/16 PO 1008 Last 24 Hrs of Lab/Manny Results Last 24 Hrs of Labs/Mics: Laboratory Tests 11/16/16 0620: Anion Gap 9, Estimated GFR 32 L, BUN/Creatinine Ratio 23.8, CBC w Diff NO MAN DIFF REQ, RBC 2.59 L, MCV 94.5 H, MCH 33.0 H, RDW 16.3 H, MPV 7.1 L, Gran % 81.0 H, Lymphocytes % 8.3 L, Monocytes % 7.8, Eosinophils % 2.6, Basophils % 0.3, Absolute Granulocytes 5.6, Absolute Lymphocytes 0.6 L, Absolute Monocytes 0.5, Absolute Eosinophils 0.2, Absolute Basophils 0, PUBS MCHC 34.9 Assessment/Plan Assessment: 66-year-old gentleman with past medical history of prostate cancer status post radiation hepatitis C status post treatment, hypertension, diabetes, infective endocarditis, afib refractory to cardioversion intially on coumadin which was stopped due to GI bleed mitral regurgitation with prolapse, status post mitral valve repair with a Maze procedure performed in November of 2010, diabetes, left leg below-knee amputation, opiate dependence, alcohol overuse, alcohol withdrawal seizures, GI bleed, MRSA bacteremia, who presented to the ED on the evening of 10/29/2016, for Alcohol withdrawal symptoms and gross hematuria. Acute blood loss anemia, secondary to gross hematuria: Patient's H&H today is 8.7/25.9 after 2 units of blood transfusion yesterday when the hemoglobin was 6.9. He is still on continuous bowel irritation due to daniella hematuria. 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 Patient's hematuria has been attributed to radiation cystitis. His CBI cannot be stopped for more than 10-15 minutes as he starts having clots and obstruction. For the same reason, he is not yet ready for hyperbaric oxygen therapy. Following Dr. Mack's suggestion in this regards. * Patient is in the operating room undergoing fulguration and possible formalin installation in the bladder. * Formalin installation into the bladder is painful, can cause side effects of fibrosis, obstruction, hydronephrosis and papillary necrosis, irritation/injury to the surrounding tissue outside, and a small contracted bladder. Dr. Acharya has been requested to suggest the follow-up plan/precautions after the procedure. * Patient has blood group and has rare antibodies, thus cannot be given any blood from the blood bank. It has to be ordered from [facility] and takes few hours to reach, thus in case of worsening hematuria, [facility] and blood bank at [place] should be contacted immediately as well as urology service. * Of note, urine culture was positive for Escherichia coli and patient has finished a course of ciprofloxacin for 7 days, last dose was on 11/06/16, he has remained afebrile ever since. Alcohol withdrawal (resolved) Completed full course of Librium bhanu. Atrial fibrillation/hypertension/hyperlipidemia Patient has [id number] Score or 3 points, he has 3.2% risk of stroke per year and 4.6% risk of stroke/TIA/systemic embolism. Not on anticoagulation now due to continuous hematuria. Telemetry monitoring was discontinued per patient's request, after explaining the need to continuously monitor his cardiac activities, given that he has significant pauses. He has full capacity to understand the situation and choose the treatment plan, including the consequences of continuing telemetry and not continuing telemetry. He understands that if he is not under telemetry monitoring, significant cardiac events can be missed which can have a detrimental effect on his health. This was also discussed with Spare Hand davian in telemetry. History of chronic kidney disease Stable renal function, creatinine today is 2.1 Diabetes mellitus: Fingerstick glucose in the past 24 hours is under control. Patient on consistent carbohydrate 3 diet. He gets Levemir 14 units daily and insulin sliding scale Continue with Accu-Cheks and diabetic management regimen Diabetic diet Pain management is adequate with current plan, (decreased per patient's request) DVT prophylaxis is mechanical only because of ongoing blood loss Full code Problem List: 1. Gross hematuria 2. Radiation cystitis 3. Acute blood loss anemia 4. History of prostate cancer 5. CKD (chronic kidney disease) 6. Diabetes mellitus 7. Alcohol dependence 8. PROSTATE CARCINOMA S/P RESECTI 9. COLON CA S/P RESECTION Pain Ratin Pain Location: around genitalia Pain Goal: Pain 4 or less Pain Plan: prn Tomorrow's Labs & Rationales: CBC, BEP to f/u for h/h and s/p possible formalin instillation
--- NOTE | 2016-11-16 12:00 | PN- Att Addend ---
Attending MD Review Statement Attending Statement Attending MD Statement: examined this patient, discuss w/resident/PA/EDGER MACHINE OPERATOR, agreed w/resident/PA/EDGER MACHINE OPERATOR, reviewed EMR data (avail), discussed w/nursing Attending Assessment/Plan: Laboratory Tests 11/16/16 0620: Anion Gap 9, Estimated GFR 32 L, BUN/Creatinine Ratio 23.8, CBC w Diff NO MAN DIFF REQ, RBC 2.59 L, MCV 94.5 H, MCH 33.0 H, RDW 16.3 H, MPV 7.1 L, Gran % 81.0 H, Lymphocytes % 8.3 L, Monocytes % 7.8, Eosinophils % 2.6, Basophils % 0.3, Absolute Granulocytes 5.6, Absolute Lymphocytes 0.6 L, Absolute Monocytes 0.5, Absolute Eosinophils 0.2, Absolute Basophils 0, PUBS MCHC 34.9 Vital Signs Date Time Temp Pulse Resp B/P B/P Pulse O2 O2 Flow FiO2 Mean Ox Delivery Rate 11/16 1008 140/80 11/16 1008 140/80 11/16 0630 97.9 73 20 144/80 93 Room Air 11/15 2224 97.6 86 20 160/90 95 11/15 2124 80 160/90 11/15 1600 96 Room Air 11/15 1600 97 Room Air 11/15 1429 97.5 63 20 138/76 95 Patient seen and examined at bedside. Discussed with patient the care plan. Patient continues to have hematuria and is currently on continuous bladder irrigation. Plan is for the patient to be taken to OR today by urology for cystoscopy and fulguration and intravesical formalin instillation. We will continue to monitor his hemoglobin closely. Patient does give history of hematuria a few weeks back and also for which he was given antibiotics and it resolved. Patient is being treated as possible radiation cystitis secondary to his prostate cancer and radiation done many years ago for that.
[2016-11-16 13:58] VITALS: BP 142/78
--- NOTE | 2016-11-16 16:29 | Operative Report ---
Operative/Inv Procedure Report Surgery Date: 11/16/16 Name of Procedure: Cystoscopy, clot evacuation, fulgeration of bleeding,cystogram and intravesical instillation of 1% formalin Pre-Operative Diagnosis: Intractable hematuria likely due to radiation cystitis Post-Operative Diagnosis: same Estimated Blood Loss: 50ml to 100ml Surgeon/Quality Liaison: LUZ MARIA Drew MD Anesthesia: laryngeal mask airway Drains: 22 nahomy 3-way hematuria catheter for CBI Specimens: none Complications: none Condition: stable Operative Indication: This patient presented to the emergency room for alcohol withdrawal. He was found to have hematocrit of [address] scan showed extensive clot in the urinary bladder. He was transfused to hematocrit of 21 and was then taken to cystoscopy room for evacuation of the clot was was extensive procedure. Findings were consistent with radiation cystitis. Fulguration was performed. Following this bladder irrigation was clear. However 2 days later he started to have hematuria again. This was treated conservatively with continuous bladder irrigation but did not stop. Therefore it was decided that he will come back to the operating room for clot evacuation, fulguration and instillation of intravesical formalin. Operative/Procedure Note Note: The patient was taken to the operating room and identified. As placed in supine position on the cystoscopy table. A timeout was executed appropriately with the patient awake. Gen. anesthesia was induced via LMA. He was then placed in dorsolithotomy position. He was prepped and draped in usual fashion for cystoscopy. Surgical pause was executed appropriately. The 26 Romanian resectoscope sheath was placed into the bladder. Moderate amount of clot was seen. The MigdaliaVideostir evacuator was used to evacuate all clot from the bladder. Cystoscopy was then performed. There were multiple oozing areas in the bladder mostly close to the bladder neck. The area of maximal bleeding was between the 12:00 and 5 o'clock position just inside the bladder neck. There were some other areas throughout the bladder which were oozing as well. The right ureteral orifice was normal in location and appearance. The left ureteral orifice was difficult to identify. Bleeding areas were fulgurated with a rollerball after all blood clot had been evacuated from the bladder. At this point there was no significant bleeding noted. However due to the presumed diagnosis of radiation cystitis was decided to proceed with intravesical instillation of formalin. An 18 Romanian Kaiser catheter was placed after the resectoscope was removed. The bladder was filled with 200 mL of contrast agent under gravity. There was no extravasation from the bladder. There is no reflux up to the kidneys. At this point, 200 mL of 1% formalin solution was instilled into the bladder through the Kaiser catheter under gravity. A 12 time was 15 minutes. Formalin was then drained. The Kaiser catheter was removed and was replaced with 22 Romanian three-way hematuria catheter. The bladder drainage at this point was clear. Therefore was decided to terminate the procedure. His awoken from general anesthesia. Continuous bladder irrigation was begun with clear drainage. He was taken to recovery room in stable condition. Findings: Diffuse areas of bleeding within the bladder consistent with radiation cystitis Discharge Disposition: PACU
[2016-11-16 18:00] VITALS: BP 130/80
--- NOTE | 2016-11-16 18:17 | PN- Urology ---
Surgical Brief Attending Note Brief Attending Note: Patient underwent cystoscopy, clot evacuation, fulgeration of bleeding areas, cystogram and intravesical instillation of 1% formalin. No special precautions needed. Plan: 1. continue CBI 2. Would get CBC and BMP in the AM
--- NOTE | 2016-11-16 21:18 | Event Note ---
Event Note Event Note: As pt is now eating, I discontinued novolin npo sliding scale ordered novolog tidac and bedtime
[2016-11-16 22:45] VITALS: BP 118/84
[2016-11-17 01:57] VITALS: BP 132/78
[2016-11-17 06:00] VITALS: BP 136/80
--- NOTE | 2016-11-17 06:32 | PN- Housestaff ---
ROMMEL ARCEO,NATA 11/17/16 0632: Subjective Follow-up For: Hematuria; A. fib not on anticoagulation; Prostatitis; Acute blood loss anemia. Complaints: no complaints Subjective: I followed up and examined the patient today. He is resting comfortably at the side of his bed, he is complaining of pain around his genitalia (from within), vitals have been stable, no overnight issues. Of note, his continuous bladder irrigation is ongoing, with very light pink colored urine collected in the urine bag. Review of Systems Constitutional: Reports: see HPI (pain). Objective Last 24 Hrs of Vital Signs/I&O Vital Signs Date Time Temp Pulse Resp B/P B/P Pulse O2 O2 Flow FiO2 Mean Ox Delivery Rate 11/17 1452 98.4 82 20 130/80 95 11/17 0843 82 110/60 11/17 0842 82 110/60 11/17 0600 98.6 63 20 136/80 94 Room Air 11/17 0600 98.6 63 20 136/80 94 Room Air 11/17 0157 98.2 59 20 132/78 97 Room Air 11/16 2255 83 118/84 11/16 2245 97.7 83 20 118/84 94 Room Air 11/16 1800 97.9 66 20 130/80 92 Room Air Intake & Output 11/17 1600 11/17 0800 11/17 0000 Intake Total 500 600 500 Output Total 200 1700 300 Balance 300 -1100 200 Intake, IV 400 400 Intake, Oral 500 200 100 Number 0 Bowel Movements Output, Urine 200 1700 300 Physical Exam General Appearance: Alert, Oriented X3, Cooperative, No Acute Distress, obese Other Physical Findings: HEENT: Atraumatic, PERRLA, EOMI, Mucous Membr. moist/pink Cardiovascular: Normal S1, Normal S2, irregular Lungs: no change from yesterday, not in distress Abdomen: Normal Bowel Sounds, Soft, No Tenderness Extremities: No Clubbing, No Cyanosis, No Edema, LBKA CBI ongoing, with light pink discolored urine in uro bag. -CBI stopped later during the day. Current Medications: Current Medications Sig/Avery Start time Last Medication Dose Route Stop Time Status Admin Acetaminophen 1,000 MG Q6H PRN 10/31 1500 DC 11/01 N/A 1 UNIT IV 0651 Albuterol Sulfate 2 PUF Q6 11/16 1800 AC 11/17 INH 1306 Albuterol Sulfate 2 PUF Q6 11/11 1800 DC 11/16 INH 1343 Atorvastatin Calcium 20 MG DAILY 11/17 1000 AC 11/17 PO 0842 Atorvastatin Calcium 20 MG DAILY 10/30 1000 DC 11/16 PO 1005 Bisacodyl 10 MG DAILY 11/17 1000 DC AZ Bisacodyl 10 MG DAILY PRN 11/17 0830 AC AZ Bisacodyl 5 MG DAILY 11/05 1000 DC 11/14 PO 0924 Bisacodyl 10 MG DAILY NEEDED PRN 11/04 1915 DC [place] Budesonide/ 2 PUF BID 11/16 2200 AC 11/17 Formoterol Fumarate INH 0844 Budesonide/ 2 PUF BID 10/30 1000 DC 11/16 Formoterol Fumarate INH 1015 Dextrose/Sodium 1,000 ML Q20H 11/16 1700 DC 11/17 Chloride IV 0737 Dextrose/Sodium 1,000 ML Q13H 11/16 0915 DC 11/16 Chloride IV 11/16 1659 1015 Duloxetine HCl 60 MG DAILY 11/17 1000 AC 11/17 PO 0843 Duloxetine HCl 60 MG DAILY 10/30 1000 DC 11/16 PO 1006 Folic Acid 1 MG DAILY 11/17 1000 AC 11/17 PO 0842 Folic Acid 1 MG DAILY 10/30 1000 DC 11/16 PO 1005 Gabapentin 600 MG TID 11/16 2200 AC 11/17 PO 0842 Gabapentin 600 MG TID 10/30 1000 DC 11/16 PO 1005 Hydromorphone HCl 2 MG .STK-MED ONE 11/16 1620 DC IM 11/16 1621 Insulin Aspart 0 TIDAC 11/17 0800 AC 11/17 SC 1305 Insulin Aspart 0 AT BEDTIME 11/16 2200 AC SC Insulin Detemir 14 UNITS DAILY 11/17 1000 AC 11/17 SC 0840 Insulin Detemir 14 UNITS DAILY 10/30 1000 DC 11/16 SC 1004 Insulin Human Regular 0 Q6 11/16 1800 DC 11/16 SC 1839 Insulin Human Regular 0 Q6 11/16 1200 DC SC Magnesium Hydroxide 30 ML ONE PRN 11/01 1545 DC 11/04 PO 1738 Metoprolol Tartrate 6.25 MG BID 11/16 2200 AC 11/17 PO 0842 Metoprolol Tartrate 6.25 MG BID 11/07 1459 DC 11/16 PO 1008 Morphine Sulfate 2 MG ONCE ONE 11/17 1015 DC 11/17 IV 11/17 1016 1025 Morphine Sulfate 15 MG Q12 11/16 2200 AC 11/17 PO 0841 Morphine Sulfate 15 MG Q12 11/11 2200 DC 11/16 PO 1014 Multivitamins 1 TAB DAILY 11/17 1000 AC 11/17 PO 0842 Multivitamins 1 TAB DAILY 10/30 1000 DC 11/16 PO 1005 Nicotine 7 MG DAILY 11/17 1000 AC 11/17 TOP 0841 Nicotine 7 MG DAILY 11/11 2230 DC 11/15 TOP 1117 Oxycodone HCl 15 MG Q4P PRN 11/16 2145 AC 11/17 PO 1305 Oxycodone HCl 15 MG Q4P PRN 11/16 1700 DC 11/16 PO 1838 Oxycodone HCl 15 MG Q4P PRN 11/05 1430 DC 11/16 PO 0001 Patient Medication 1 ED .STK-MED ONE 11/17 1328 DC Teaching ED 11/17 1329 Polyethylene Glycol 17 GM DAILY 11/17 1000 11/17 PO 0841 Polyethylene Glycol 17 GM DAILY 11/01 1544 DC 11/10 PO 1154 Senna/Docusate Sodium 1 TAB BID PRN 11/16 1700 AC PO Senna/Docusate Sodium 1 TAB BID PRN 11/01 1545 DC 11/06 PO 0859 Tamsulosin HCl 0.4 MG DAILY 11/17 1000 AC 11/17 PO 0843 Tamsulosin HCl 0.4 MG DAILY 11/14 1000 DC 11/16 PO 1008 Last 24 Hrs of Lab/Manny Results Last 24 Hrs of Labs/Mics: Laboratory Tests 11/17/16 0524: Anion Gap 10, Estimated GFR 34 L, BUN/Creatinine Ratio 23.0, CBC w Diff NO MAN DIFF REQ, RBC 2.70 L, MCV 92.7, MCH 30.9, RDW 16.8 H, MPV 7.2 L, Gran % 81.7 H, Lymphocytes % 5.2 L, Monocytes % 7.9, Eosinophils % 4.7, Basophils % 0.5, Absolute Granulocytes 7.2 H, Absolute Lymphocytes 0.5 L, Absolute Monocytes 0.7 H, Absolute Eosinophils 0.4, Absolute Basophils 0, PUBS MCHC 33.4 Assessment/Plan Assessment: 66-year-old gentleman with past medical history of prostate cancer status post radiation hepatitis C status post treatment, hypertension, diabetes, infective endocarditis, afib refractory to cardioversion intially on coumadin which was stopped due to GI bleed mitral regurgitation with prolapse, status post mitral valve repair with a Maze procedure performed in November of 2010, diabetes, left leg below-knee amputation, opiate dependence, alcohol overuse, alcohol withdrawal seizures, GI bleed, MRSA bacteremia, who presented to the ED on the evening of 10/29/2016, for Alcohol withdrawal symptoms and gross hematuria. He is currently being managed in general medical floor for the following issues: Acute blood loss anemia, secondary to gross hematuria: Patient's H&H today is 8.7/25.9 after 2 units of blood transfusion yesterday when the hemoglobin was 6.9. He is still on continuous bowel irritation due to daniella hematuria. His urine is still pink in color although signwriter than on Monday. Patient's hematuria has been attributed to radiation cystitis. His CBI could not be stopped for more than 10-15 minutes as he would start having clots and obstruction. For the same reason, he was not yet ready for hyperbaric oxygen therapy. We are following Dr. Mack's suggestion in this regards. * Patient underwent fulguration and 1% formalin installation in the urinary bladder on 11/16/16. * Formalin installation into the bladder is painful, can cause side effects of fibrosis, obstruction, hydronephrosis and papillary necrosis, irritation/injury to the surrounding tissue outside, and a small contracted bladder. CBI was running since the procedure yesterday, and this morning, Dr Acharya evaluated the patient and discontinued CBI as it was draining only light pink urine. Plan to remove the Kaiser out tomorrow, and thenafter he can go for hyperbaric oxygen therapy. According to Dr Mccall, this can be done also as an outpatient basis. * Patient has blood group and has rare antibodies, thus cannot be given any blood from the blood bank. It has to be ordered from [facility] and takes few hours to reach, thus in case of worsening hematuria, [place] and blood bank at [facility] should be contacted immediately as well as urology service. Urinary Tract Infection, treated Urine culture was positive for Escherichia coli and patient has finished a course of ciprofloxacin for 7 days, last dose was on 11/06/16, he has remained afebrile ever since. Alcohol withdrawal (resolved) Completed full course of Librium bhanu. Atrial fibrillation/hypertension/hyperlipidemia Patient has [id number] Score or 3 points, he has 3.2% risk of stroke per year and 4.6% risk of stroke/TIA/systemic embolism. Not on anticoagulation now due to continuous hematuria. This has to be addressessed now. Will follow Cardiology input. Of note, telemetry monitoring was discontinued per patient's request, after explaining the need to continuously monitor his cardiac activities, given that he has significant pauses. He has full capacity to understand the situation and choose the treatment plan, including the consequences of continuing telemetry and not continuing telemetry. He understands that if he is not under telemetry monitoring, significant cardiac events can be missed which can have a detrimental effect on his health. This was also discussed with Senior Business Development Analyst davian in telemetry. History of chronic kidney disease Stable renal function, creatinine today is 2.0 Diabetes mellitus: Fingerstick glucose in the past 24 hours is under control. Patient on consistent carbohydrate 3 diet. He gets Levemir 14 units daily and insulin sliding scale Continue with Accu-Cheks and diabetic management regimen -Diabetic diet -Pain management is adequate with current plan, (decreased per patient's request ), but received one extra dose of IV Morphine in place of PO Oxycodone. -DVT prophylaxis is mechanical only because of ongoing blood loss -Full code Problem List: 1. Radiation cystitis 2. Gross hematuria 3. Acute blood loss anemia 4. History of prostate cancer 5. CKD (chronic kidney disease) 6. Diabetes mellitus 7. Alcohol dependence 8. PROSTATE CARCINOMA S/P RESECTI 9. COLON CA S/P RESECTION Pain Ratin Pain Location: genital region (from within) Pain Goal: Pain 4 or less Pain Plan: prn, needed once IV Morphine today Tomorrow's Labs & Rationales: CBC to f/u on anemia LUZ MARIA CARTER MD 11/17/16 1252: Attending MD Review Statement Attending Statement Attending MD Statement: examined this patient, discuss w/resident/PA/CLINIC PHYSICIAN DIRECTOR, agreed w/resident/PA/CLINIC PHYSICIAN DIRECTOR, reviewed EMR data (avail), discussed with nursing, reviewed images Attending Assessment/Plan: Appreciate urology's procedure and recommendations. He went to the OR yesterday had a cystoscopy, fulguration and formalin infusion. They're now tapering off the continuous bladder irrigation with the hope of stopping it. Dr. Acharya still feels that the ultimate healing procedure will be hyperbaric oxygen therapy and will need to talk to Dr. Mack about the feasibility of the same. He has multiple medical problems including diabetes, alcohol dependence, and amputation and now with a severe radiation cystitis with ongoing hematuria. He has A. fib and is off anticoagulation because the risks of bleeding are too much right now. At this point if we can taper off the CBI then we can work more aggressively with physical therapy as the patient is very reluctant to go to rehabilitation even though that's what's being recommended as a safe discharge plan.
--- NOTE | 2016-11-17 07:29 | PN- Urology ---
Subjective Subjective: Complains of discomfort from king Objective Vital Signs and I&Os Vital Signs Date Time Temp Pulse Resp B/P B/P Pulse O2 O2 Flow FiO2 Mean Ox Delivery Rate 11/17 06 98.6 63 20 136/80 94 Room Air 11/17 0600 98.6 63 20 136/80 94 Room Air 11/17 0157 98.2 59 20 132/78 97 Room Air 11/16 2255 83 118/84 11/16 2245 97.7 83 20 118/84 94 Room Air 11/16 1800 97.9 66 20 130/80 92 Room Air 11/16 1358 97.6 67 20 142/78 96 Room Air 11/16 1008 140/80 11/16 1008 140/80 Intake & Output 11/17 0811/17 0000 11/16 1600 11/16 0800 11/16 0000 11/15 1600 Intake Total 424 547 1570 750 Output Total 300 0037 467 0833 Balance 200 -1725 8400 -280 Intake, IV 400 225 Intake, Oral 100 0 750 Intake, Other 9000 Number 0 1 Bowel Movements Output, Urine [phone] Abd: Soft and non tender Genitalia: 3-way king in place. CBI running at slow to moderate rate with clear to light pink drainage Laboratory Tests 11/18 523 Chemistry Sodium Pending Potassium Pending Chloride Pending Carbon Dioxide Pending Anion Gap Pending BUN Pending Creatinine Pending BUN/Creatinine Ratio Pending Hematology CBC w Diff Pending WBC Pending RBC Pending Hgb Pending Hct Pending MCV Pending MCH Pending RDW Pending Plt Count Pending MPV Pending PUBS MCHC Pending Assessment/Plan Assessment/Plan Imp: 1. Hematuria likely due to radiation cystitis 2. Hx of prostate ca 3. s/p cysto, clot evacuation and instillation of 1% formalin into bladder Plan: 1. Try to slowly taper off CBI today 2. Continue king
[2016-11-17 09:00] LABS: ABSOLUTE BASOPHIL COUNT 0 /CUMM (0.0-0.2); ABSOLUTE EOSINOPHIL COUNT 0.4 /CUMM (0.0-0.7); ABSOLUTE GRANULOCYTE CT 7.2 /CUMM (1.4-6.5); ABSOLUTE LYMPH COUNT 0.5 /CUMM (1.2-3.4); ABSOLUTE MONOCYTE COUNT 0.7 /CUMM (0.10-0.60); BASOPHIL % 0.5 % (0.0-2.0); EOSINOPHIL % 4.7 % (0-5); GRANULOCYTE % 81.7 % (42.2-75.2); MEAN CORPUSCULAR HGB 30.9 PG (27.0-31.0); MEAN CORPUSCULAR HGB CONC 33.4 G/DL (33.0-37.0); MEAN CORPUSCULAR VOLUME 92.7 FL (80.0-94.0); MEAN PLATELET VOLUME 7.2 FL (7.4-10.4); PLATELET COUNT 250 /CUMM (130-400); RBC DISTRIBUTION WIDTH 16.8 % (11.5-14.5); WHITE BLOOD CELL COUNT 8.8 /CUMM (4.8-10.8)
--- NOTE | 2016-11-17 09:09 | RADIOLOGY REPORT ---
EXAMINATION: XR INTRAOPERATIVE FLUOROSCOPY AND SPOT FILM CLINICAL INDICATION: Cystogram. COMPARISON: CT scan of the abdomen and pelvis dated 11/01/2016. TECHNIQUE: Intraoperative fluoroscopy was provided for the performance of a cystogram. 9 spot films were obtained and are archived in PACS. FLUOROSCOPY TIME: 24 seconds FINDINGS: There is contrast opacification of the bladder, which demonstrates a slightly irregular margin, perhaps related to underdistention on the images provided. No definite filling defect is demonstrated. Final image demonstrates complete emptying of the bladder contents, partially outlining the Kaiser balloon. No reflux is demonstrated. IMPRESSION: Intraoperative fluoroscopy for cystogram. Please refer to operative note.
[2016-11-17 14:52] VITALS: BP 130/80
[2016-11-17 17:30] VITALS: BP 124/70
[2016-11-17 22:29] VITALS: BP 138/72
[2016-11-18 06:30] VITALS: BP 112/58
--- NOTE | 2016-11-18 06:46 | PN- Urology ---
Subjective Subjective: Patient sleeping Objective Vital Signs and I&Os Vital Signs Date Time Temp Pulse Resp B/P B/P Pulse O2 O2 Flow FiO2 Mean Ox Delivery Rate 11/17 2228 98.5 66 20 138/72 94 Room Air 11/17 2131 126/80 11/17 1730 98.0 79 20 124/70 92 Room Air 11/17 1452 98.4 82 20 130/80 95 11/17 0843 82 110/60 11/17 0842 82 110/60 Intake & Output 11/18 0800 11/18 0000 11/17 1600 11/17 0800 11/17 0000 11/16 1600 Intake Total 450 500 600 500 225 Output Total 5227 662 8731 300 1950 Balance -850 -150 -1100 200 -1725 Intake, IV 400 400 225 Intake, Oral 450 500 200 100 0 Number 0 0 Bowel Movements Output, Urine 7291 298 [address] CBI is off. Urine is clear Laboratory Tests 11/18 530 Hematology CBC w Diff Pending WBC Pending RBC Pending Hgb Pending Hct Pending MCV Pending MCH Pending RDW Pending Plt Count Pending MPV Pending PUBS MCHC Pending Assessment/Plan Assessment/Plan Imp: 1. s/p cystoscopy, clot evacuation, fulgeration of bleeding and instillation of 1% formalin into bladder for hematuria due to radiation cystitis 2. Hx of prostate ca Plan: 1. Remove king today 2. Check pvr with bladder scanner x 2. If greater than [address] 16 fr coude catheter and repeat void trial in 48 hours
--- NOTE | 2016-11-18 07:58 | PN- Wound Care ---
Subjective Subjective: Patient is status post formalin instillation and CBI has been discontinued. I discussed the utility of hyperbaric oxygen therapy with Dr. saavedra and will proceed post discharge. I've explained the rationale for this and mechanics with Mr. Ling. Objective Vital Signs and I&Os Vital Signs Result Date Time Pulse Ox 93 11/18 0530 B/P 112/58 11/18 0630 O2 Delivery Room Air 11/18 629 Temp 97.8 11/18 06 Pulse 71 11/18 0630 Resp 20 11/18 06 O2 Flow Rate 1.0L 11/13 1400 Intake & Output 11/18 0000 11/17 1600 11/17 0800 Intake Total 450 500 600 Output Total 9302 222 8514 Balance -850 -150 -1100 Intake, IV 400 Intake, Oral 450 500 200 Number 0 Bowel Movements Output, Urine [phone] Exam of his chest shows clear lung matias wheezes have resolved Impression/Plan Impression/Plan Impression/Plan: 66-year-old gentleman with multiple medical problems has had 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 Patient is high risk for potential complications of hyperbaric oxygen therapy given multitude of medical problems and evidence of active bronchospasm. If Acute medical issues can be improved he is a candidate for hyperbaric oxygen at 2 YAS 5 200% 90 minutes of therapeutic treatment time. Understanding that any improvement would not occur for at least 2 weeks. Ideally treatment should be deferred to the outpatient setting however if his hematuria cannot otherwise be controlled inpatient hyperbarics can be started making his cardiopulmonary status can be optimized. He would need pulmonary function testing and more aggressive optimization of airway function. Airway function appears improved however CBI cannot be maintained during hyperbaric oxygen treatments and I'm told they cannot be discontinued even temporarily. If CBI can be discontinued then hyperbaric oxygen therapy can be started though understanding any beneficial effects will not be seen for at least 2 weeks. Please arrange for wound care center follow-up next week for Mr. Ling's and we can again process of starting hyperbaric oxygen therapy
[2016-11-18 08:11] LABS: ABSOLUTE BASOPHIL COUNT 0 /CUMM (0.0-0.2); ABSOLUTE EOSINOPHIL COUNT 0.2 /CUMM (0.0-0.7); ABSOLUTE GRANULOCYTE CT 4.1 /CUMM (1.4-6.5); ABSOLUTE LYMPH COUNT 0.5 /CUMM (1.2-3.4); ABSOLUTE MONOCYTE COUNT 0.6 /CUMM (0.10-0.60); BASOPHIL % 0.1 % (0.0-2.0); EOSINOPHIL % 4.4 % (0-5); GRANULOCYTE % 74.3 % (42.2-75.2); HEMATOCRIT 23.1 % (42-52); MEAN CORPUSCULAR HGB 31.8 PG (27.0-31.0); MEAN CORPUSCULAR HGB CONC 34.3 G/DL (33.0-37.0); MEAN CORPUSCULAR VOLUME 92.8 FL (80.0-94.0); MEAN PLATELET VOLUME 7.4 FL (7.4-10.4); PLATELET COUNT 203 /CUMM (130-400); RBC DISTRIBUTION WIDTH 17.2 % (11.5-14.5); RED BLOOD CELL CT 2.49 /CUMM (4.70-6.10); WHITE BLOOD CELL COUNT 5.5 /CUMM (4.8-10.8)
--- NOTE | 2016-11-18 08:31 | PN- Housestaff ---
ROMMEL ARCEO,NATA 11/18/16 0831: Subjective Follow-up For: Hematuria; A. fib not on anticoagulation; Prostatitis; Acute blood loss anemia. Subjective: Patient followed up by me today. He is resting comfortably, vital signs have been stable, still has Kaiser catheter on, no overnight issues. He was curious if his pain medications can be reduced today. Review of Systems Constitutional: Reports: no symptoms. Objective Last 24 Hrs of Vital Signs/I&O Vital Signs Date Time Temp Pulse Resp B/P B/P Pulse O2 O2 Flow FiO2 Mean Ox Delivery Rate 11/18 2201 140/80 11/18 1512 98.6 77 18 118/62 93 Room Air 11/18 1000 70 120/70 11/18 0630 97.8 71 20 112/58 93 Room Air 11/17 2229 98.5 66 20 138/72 94 Room Air Intake & Output 11/18 1600 11/18 0800 11/18 0000 Intake Total 600 450 Output Total 1300 1400 1300 Balance -700 -1400 -850 Intake, Oral 600 450 Number 0 Bowel Movements Output, Urine 1300 1400 1300 Physical Exam General Appearance: Alert, Oriented X3, Cooperative, No Acute Distress Other Physical Findings: HEENT: Atraumatic, PERRLA, EOMI, Mucous Membr. moist/pink Cardiovascular: Normal S1, Normal S2, irregular Lungs: no change from yesterday, not in distress Abdomen: Normal Bowel Sounds, Soft, No Tenderness Extremities: No Clubbing, No Cyanosis, No Edema, LBKA Kaiser bag on with normal urine, no discoloration grossly. Current Medications: Current Medications Sig/Avery Start time Last Medication Dose Route Stop Time Status Admin Albuterol Sulfate 2 PUF Q6 11/16 1800 AC 11/18 INH 1702 Apixaban 5 MG BID 11/19 1000 AC PO Atorvastatin Calcium 20 MG DAILY 11/17 1000 AC 11/18 PO 0959 Bisacodyl 10 MG DAILY PRN 11/[address] Budesonide/ 2 PUF BID 11/16 2199 AC 11/18 Formoterol Fumarate INH 2200 Duloxetine HCl 60 MG DAILY 11/17 1000 AC 11/18 PO 0958 Ferrous Sulfate 325 MG DAILY 11/18 1000 AC 11/18 PO 0959 Folic Acid 1 MG DAILY 11/17 1000 AC 11/18 PO 0959 Gabapentin 600 MG TID 11/16 2199 AC 11/18 PO 220 Insulin Aspart 0 TIDAC 11/17 0800 AC 11/18 SC 1657 Insulin Aspart 0 AT BEDTIME 11/16 2199 AC SC Insulin Detemir 14 UNITS DAILY 11/17 1000 AC 11/18 SC 0959 Metoprolol Tartrate 6.25 MG BID 11/16 2199 AC 11/18 PO 2202 Morphine Sulfate 15 MG Q12 11/16 220 AC 11/18 PO 2203 Multivitamins 1 TAB DAILY 11/17 1000 AC 11/18 PO 0959 Nicotine 7 MG DAILY 11/17 1000 AC 11/18 TOP 0958 Oxycodone HCl 15 MG Q4P PRN 11/16 2145 AC 11/17 PO 1808 Polyethylene Glycol 17 GM DAILY 11/17 1000 AC 11/18 PO 0958 Senna/Docusate Sodium 1 TAB BID PRN 11/16 1700 AC PO Tamsulosin HCl 0.4 MG DAILY 11/17 1000 AC 11/18 PO 1000 Last 24 Hrs of Lab/Manny Results Last 24 Hrs of Labs/Mics: Laboratory Tests 11/18/1631: CBC w Diff NO MAN DIFF REQ, RBC 2.49 L, MCV 92.8, MCH 31.8 H, RDW 17.2 H, MPV 7.4, Gran % 74.3, Lymphocytes % 9.9 L, Monocytes % 11.3 H, Eosinophils % 4.4, Basophils % 0.1, Absolute Granulocytes 4.1, Absolute Lymphocytes 0.5 L, Absolute Monocytes 0.6, Absolute Eosinophils 0.2, Absolute Basophils 0, PUBS MCHC 34.3 Assessment/Plan Assessment: 66-year-old gentleman with past medical history of prostate cancer status post radiation hepatitis C status post treatment, hypertension, diabetes, infective endocarditis, afib refractory to cardioversion intially on coumadin which was stopped due to GI bleed mitral regurgitation with prolapse, status post mitral valve repair with a Maze procedure performed in November of 2010, diabetes, left leg below-knee amputation, opiate dependence, alcohol overuse, alcohol withdrawal seizures, GI bleed, MRSA bacteremia, who presented to the ED on the evening of 10/29/2016, for Alcohol withdrawal symptoms and gross hematuria. He is currently being managed in general medical floor for the following issues: Acute blood loss anemia, secondary to gross hematuria: Patient's hematuria has been attributed to radiation cystitis. Patient's H&H today is 7.9/23.1. Iron supplement has been added. * Patient underwent fulguration and 1% formalin installation in the urinary bladder on 11/16/16. * According to urology services, Kaiser catheter was removed today. Do NOT place the patient on straight catheter protocol. If the patient does not urinate or has post voidal residual urine more than 300 mL, a Kaiser catheter can be placed , but NO straight catheter. The patient has gross hematuria, call urology services immediately. * According to Dr Mccall, this can be done also as an outpatient basis. * Patient has blood group and has rare antibodies, thus cannot be given any blood from the blood bank. It has to be ordered from [facility] and takes few hours to reach, thus in case of worsening hematuria, [facility] and blood bank at [place] should be contacted immediately as well as urology service. Urinary Tract Infection, treated Urine culture was positive for Escherichia coli and patient has finished a course of ciprofloxacin for 7 days, last dose was on 11/06/16, he has remained afebrile ever since. Alcohol withdrawal (resolved) Completed full course of Librium bhanu. Atrial fibrillation/hypertension/hyperlipidemia Patient has [id number] Score or 3 points, he has 3.2% risk of stroke per year and 4.6% risk of stroke/TIA/systemic embolism. Not on anticoagulation now due to continuous hematuria. This has to be addressed now. Will follow Cardiology input. He used to be on Eliquis prior to this episode. History of chronic kidney disease Stable renal function, creatinine today is 2.0 Diabetes mellitus: Fingerstick glucose in the past 24 hours is under control. Patient on consistent carbohydrate 3 diet. He gets Levemir 14 units daily and insulin sliding scale Continue with Accu-Cheks and diabetic management regimen -Diabetic diet -Pain management is adequate with current plan, (decreased per patient's request ), but received one extra dose of IV Morphine in place of PO Oxycodone. -DVT prophylaxis is mechanical only because of ongoing blood loss -Full code Problem List: 1. Radiation cystitis 2. Alcohol dependence 3. Diabetes mellitus 4. CKD (chronic kidney disease) 5. History of prostate cancer 6. Acute blood loss anemia Pain Ratin Pain Location: low abd, mild Pain Goal: Pain 4 or less Pain Plan: prn Tomorrow's Labs & Rationales: BEP, CBC RAUL ARCEO,LUZ MARIA 11/18/16 1454: Attending MD Review Statement Attending Statement Attending MD Statement: examined this patient, discuss w/resident/PA/TABLE LEVER OPERATOR, agreed w/resident/PA/TABLE LEVER OPERATOR, reviewed EMR data (avail), discussed with nursing, discussed with case mgmt, reviewed images Attending Assessment/Plan: Patient's Kaiser was discontinued today. The CBI was stopped yesterday. He has voided 150 mL and so far has had negligible post void residual. This is an extremely complex 66-year-old male who has been here since October 30. He has diabetes, coronary artery disease, A. fib with a Maze procedure and mitral valve repair, alcohol dependence and multiple other problems. His active issue right now has been ongoing hematuria attributed to radiation cystitis that required continuous bladder irrigation for multiple days. He suffered severe blood loss anemia requiring almost 8 units of blood over the course of his entire hospitalization. He was taken to the OR on 11/16 for fiulgration, cystoscopy, formalin infusion for treatment of radiation cystitis and finally we were able to taper the CBI off on 11/17. Today we took out the Kaiser and give him a trial of voiding and follow Dr. Acharya's recommendations closely. He's also seen by Dr. Ann today and because of his high chads score and high risk of stroke, the plan is to watch him overnight and restart his Eliquis tomorrow. Given his severe anemia I would watch him for at least 24-48 hours on the Eliquis and make sure he holds onto his hematocrit before discharge. He's been cleared by PT for home discharge with visiting nurse service.
--- NOTE | 2016-11-18 08:56 | Patient Discharge Instructions ---
Discharge Instructions General Discharge Information You were seen/treated for: Gross hematuria, secondary to radiation cyctitis; Alcohol detoxification You had these procedures: Continous Bladder Irrigation (CBI); and later Fulguration and 1% formalin installation in the urinary bladder on 11/16/16. Watch for these problems: Gage bleeding in urine Special Instructions: Please follow-up with the nephrology service of Eriberto Garcia MD next week. Please visit your primary care physician before Monday to get blood work (CBC and BEP, folate, TIBC, Vit b12, ferritin) to monitor your hemoglobin level and creatinine level. A script has been provided to you. Follow up with the urology service of Dr. Yahir Acharya, within 7 days of discharge. Please follow up with Dr Jonathan Watts (lead customer service representative-kidney doctor) within one week of discharge with results of BEP (blood work). Please return to emergency if symptoms worsen. DO NOT DRINK ALCOHOL. Diet Continue normal diet: No Recommended Diet: Diabetic Activity Full Activity/No Limits: No Activity Self Limited: Yes Acute Coronary Syndrome Inclusion Criteria At DC or during hospital stay patient has or had the following: ACS DIAGNOSIS No Discharge Core Measures Meds if any: Prescribed or Continued at Discharge Meds if any: NOT Prescribed or Continued at Discharge Congestive Heart Failure Inclusion Criteria At DC or during hospital stay patient has or had the following: CHF DIAGNOSIS No Discharge Core Measures Meds if any: Prescribed or Continued at Discharge Meds if any: NOT Prescribed or Continued at Discharge Cerebrovascular accident Inclusion Criteria At DC or during hospital stay patient has or had the following: CVA/TIA Diagnosis No Discharge Core Measures Meds if any: Prescribed or Continued at Discharge Meds if any: NOT Prescribed or Continued at Discharge Venous thromboembolism Inclusion Criteria VTE Diagnosis No VTE Type NONE VTE Confirmed by (Test) NONE Discharge Core Measures - Per Current guidelines, there needs to be overlap - treatment for the first 5 days of Warfarin therapy. - If discharged on Warfarin prior to 5 days of - overlap therapy, the patient will need to be - assessed for post discharge needs including - *Post discharge parental anticoagulation - *Warfarin and/or parental anticoagulation education - *Follow up date to check INR post discharge At least 5 days overlap therapy as Inpatient No Meds if any: Prescribed or Continued at Discharge Note: Overlap Therapy is Warfarin and Anticoagulant Meds if any: NOT Prescribed or Continued at Discharge
--- NOTE | 2016-11-18 09:01 | Discharge Summary ---
Hospital Course Allergies: Coded Allergies: NO KNOWN ALLERGIES (06/07/16) Discharge Instructions Medications at Discharge Discharge Medications: Stop taking the following medications: Morphine Sulfate (Ms Contin) 30 MG TABLET.ER ORAL 2 x Daily as needed as needed for Chronic Back Pain Continue taking these medications: Gabapentin (Gabapentin) 300 MG CAPSULE 2 Capsule ORAL THREE TIMES DAILY Qty = 180 Comments: Last Taken: 07/27/16 Time: 10 AM Tamsulosin HCl (Tamsulosin HCl) 0.4 MG CAP.ER.24H 1 Capsule ORAL DAILY Qty = 30 Comments: Last Taken: 07/27/16 Time: 10 AM Budesonide/Formoterol Fumarate (Symbicort 160-4.5 Mcg Inhaler) 10.2 GM HFA.AER.AD 2 Puff Inhale through mouth TWICE DAILY Qty = 10 Comments: Last Taken:07/27/16 Time: 10AM Atorvastatin Calcium (Atorvastatin Calcium) 20 MG TABLET 1 Tablet ORAL DAILY Qty = 30 Comments: Last Taken: 07/26/16 Time: 5PM Metoprolol Succ XL (Toprol XL) 25 MG TAB.ER.24H 1 Tablet ORAL DAILY Comments: Last Taken: 07/27/16 Time: 10 AM Aspirin (Ecotrin*) 81 MG TABLET.DR 1 Tablet ORAL DAILY Comments: Last Taken: 07/27/16 Time: 10AM Folic Acid (Folic Acid) 1 MG TABLET 1 Tablet ORAL DAILY Qty = 30 Comments: Last Taken: 07/27/16 Time: 10AM Duloxetine HCl (Duloxetine HCl) 60 MG CAPSULE.DR 1 Capsule ORAL Every Morning Qty = 90 Comments: Last Taken: 07/27/16 Time: 10AM Albuterol Sulfate (Ventolin Hfa) 90 MCG HFA.AER.AD 2 Puff Inhale through mouth EVERY 4-6 HOURS NEEDED as needed for COPD Qty = 18 Comments: NOT GIVEN WHILE IN HOSPITAL Oxycodone HCl (Oxycodone HCl) 15 MG TABLET 1 Tablet ORAL Every 4 hours as needed for Chronic Back Pain Start taking the following new medications: Ferrous Sulfate (Ferrous Sulfate) 325 MG (65 MG IRON) TABLET.DR 325 Milligram ORAL DAILY as needed for SUPPLEMENT Qty = 30 No Refills Morphine Sulfate (Ms Contin) 100 MG TABLET.ER 15 Milligram ORAL EVERY 12 HOURS Qty = 30 No Refills Polyethylene Glycol 3350 (Miralax) 17 GRAM/DOSE POWDER 17 Gram ORAL DAILY as needed for CONSTIPATION Qty = 30 No Refills Sennosides/Docusate Sodium (Senna Plus Tablet) 8.6 MG-50 MG TABLET 1 Tablet ORAL TWICE DAILY as needed for CONSTIPATION Qty = 45 No Refills Multivitamin (One Daily Multivitamin) 1 EACH TABLET 1 Tablet ORAL DAILY Qty = 30 No Refills
--- NOTE | 2016-11-18 10:49 | PN- Cardiology ---
Subjective Subjective: Patient seen and examined. He is seen lying on his side in bed resting comfortably. He appears to be in no acute distress. He reports that he is "feeling fine" but wants to sleep. He denies any new subjective complaints and denies any further episodes of bloody urine. Additionally he denies any headache, fever, chills, chest pain, palpitations, shortness of breath, nausea, vomiting, diarrhea. Review of Systems Constitutional: Reports: see HPI. Objective Vital Signs and I&Os Vital Signs Date Time Temp Pulse Resp B/P B/P Pulse O2 O2 Flow FiO2 Mean Ox Delivery Rate 11/18 1000 70 120/70 11/18 0630 97.8 71 20 112/58 93 Room Air 11/17 2229 98.5 66 20 138/72 94 Room Air 11/17 2131 126/80 11/17 1730 98.0 79 20 124/70 92 Room Air 11/17 1452 98.4 82 20 130/80 95 Intake & Output 11/18 1600 11/18 0800 11/18 0000 11/17 1600 11/17 0800 11/17 0000 Intake Total 450 500 600 500 Output Total 1400 4550 112 6572 300 Balance -1400 -850 -150 -1100 200 Intake, IV 400 400 Intake, Oral 450 500 200 100 Number 0 0 Bowel Movements Output, Urine 1400 5917 194 6747 300 Physical Exam: General- well developed, well nourished obese elderly man in no acute distress HEENT- NCAT, PERRL, EOMI, anicteric sclera, moist mucous membranes Neck- Supple, no JVD/carotid bruit CVS- S1, S2 Resp- CTA bilaterally GI- Soft, nontender, nondistended, bowel sounds intact Neuro- Awake and alert, CN II - XII grossly intact, oriented to person/place/ time Ext- normal pulses, no cyanosis/clubbing/edema, left BKA Current Medications: Current Medications Sig/Avery Start time Last Medication Dose Route Stop Time Status Admin Albuterol Sulfate 2 PUF Q6 11/16 1800 AC 11/18 INH 1225 Atorvastatin Calcium 20 MG DAILY 11/17 1000 AC 11/18 PO 0959 Bisacodyl 10 MG DAILY PRN 11/17 0830 AC NE Budesonide/ 2 PUF BID 11/16 2200 AC 11/18 Formoterol Fumarate INH 1001 Duloxetine HCl 60 MG DAILY 11/17 1000 AC 11/18 PO 0958 Ferrous Sulfate 325 MG DAILY 11/18 1000 AC 11/18 PO 0959 Folic Acid 1 MG DAILY 11/17 1000 AC 11/18 PO 0959 Gabapentin 600 MG TID 11/16 2199 AC 11/18 PO 0959 Insulin Aspart 0 TIDAC 11/17 0800 AC 11/18 SC 1224 Insulin Aspart 0 AT BEDTIME 11/16 2200 AC SC Insulin Detemir 14 UNITS DAILY 11/17 1000 AC 11/18 SC 0959 Metoprolol Tartrate 6.25 MG BID 11/16 2200 AC 11/18 PO 1000 Morphine Sulfate 15 MG Q12 11/16 2200 AC 11/17 PO 2131 Multivitamins 1 TAB DAILY 11/17 1000 AC 11/18 PO 0959 Nicotine 7 MG DAILY 11/17 1000 AC 11/18 TOP 0958 Oxycodone HCl 15 MG Q4P PRN 11/16 2145 AC 11/17 PO 1808 Polyethylene Glycol 17 GM DAILY 11/17 1000 AC 11/18 PO 0958 Senna/Docusate Sodium 1 TAB BID PRN 11/16 1700 AC PO Tamsulosin HCl 0.4 MG DAILY 11/17 1000 AC 11/18 PO 1000 Results Last 48 Hrs of Labs/Mics: Laboratory Tests 11/18/16 0531: CBC w Diff NO MAN DIFF REQ, RBC 2.49 L, MCV 92.8, MCH 31.8 H, RDW 17.2 H, MPV 7.4, Gran % 74.3, Lymphocytes % 9.9 L, Monocytes % 11.3 H, Eosinophils % 4.4, Basophils % 0.1, Absolute Granulocytes 4.1, Absolute Lymphocytes 0.5 L, Absolute Monocytes 0.6, Absolute Eosinophils 0.2, Absolute Basophils 0, PUBS MCHC 34.3 11/17/16 0524: Anion Gap 10, Estimated GFR 34 L, BUN/Creatinine Ratio 23.0, CBC w Diff NO MAN DIFF REQ, RBC 2.70 L, MCV 92.7, MCH 30.9, RDW 16.8 H, MPV 7.2 L, Gran % 81.7 H, Lymphocytes % 5.2 L, Monocytes % 7.9, Eosinophils % 4.7, Basophils % 0.5, Absolute Granulocytes 7.2 H, Absolute Lymphocytes 0.5 L, Absolute Monocytes 0.7 H, Absolute Eosinophils 0.4, Absolute Basophils 0, PUBS MCHC 33.4 Assessment/Plan Assessment/Plan * Patient with multiple medical problems initially admitted for alcohol detox whom developed inability to void and subsequent gross hematuria secondary to traumatic king insertion. Patient required a total of 8 units of packed red blood cells for his acute blood loss anemia. Patient was previously maintained on Eliquis for his history of atrial fibrillation. Patient denies any further episodes of bloody urine. King catheter remains in place draininage a clear/ yellow urine without debris. Hemoglobin/hematocrit today 7.9/23.1. * Continue to monitor for hemodynamic instability and transfuse and needed to maintain hemoglobin > 8.0. Follow urology recommendations. Restart Eliquis 5mg PO BID tomorrow morning. Ensure patient has cardiology follow up after discharge. Continue telemetry? No
[2016-11-18 15:12] VITALS: BP 118/62
--- NOTE | 2016-11-18 16:09 | Discharge Summary ---
Visit Information Visit Dates Admission Date: 10/30/16 Discharge Date: 11/22/16 Hospital Course Course Attending Physician: RAUL ARCEO,LUZ MARIA Stearns Primary Care Physician: KRISTYN ARCEO,[facility] Course: This is a 66-year-old gentleman with history of alcohol dependence, opiate dependence, hepatitis C, piate dependence, diabetes, left leg below-knee amputation, alcohol overuse, alcohol withdrawal seizures, GI bleed, infective endocarditis, MRSA bacteremia, presented to the ED requesting detox. Patient has had alcohol withdrawal seizures in the past, required ICU admission and does admit to being intubated as well. In the ED, patient started having visual associations when he was trying to "catch avatar". He denies any suicidal or homicidal ideations. Patient states that he's been having off-and-on clots with urination, persistent burning with urination for the last few weeks. He has been unable to follow-up with his primary urologist Dr. Mattson, because he missed his appointment. In the ED to slightly difficult to catheterize the patient and later was successfully catheterized by urologist. Alcohol dependence As explained above the patient has significant alcohol dependence history. She was started on Ativan taper multivitamin thiamine and Ativan per ZEE.-to be admitted to medical floor. Ativan perceived a protocol, banana bag. MVI and thiamine. Patient continued with detoxification well in the GM floor and later when transferred to ICU for further management. He completed his taper well without any complications. Acute blood loss anemia secondary to gross hematuria: Patient hematuria continued even after placement of a king catheter. He was put on a CBI. Subsequent tests showed significant drop in hemoglobin. The patient was transferred to the ICU for close monitoring of his severe anemia Patient has history of prostate cancer status post radiation. On admission, patient reported history of dysuria and recurrent hematuria. In ED, multiple attempts to place King catheter failed and patient experienced scant amount of blood at urinary meatus for which urology consultation was obtained with placement of 3 way King catheter, continuous irrigation of blood revealed large amount of blood with clots. Patient had cystoscopy on 11/01/16 showed massive blood clot in the bladder, diffuse oozing from bladder mucosa with most of the bleeding at the 12 o'clock position just inside the bladder neck.. His urine initially cleared and CBI was discontinued. But later found to have gross hematuria. His bleeding is most likely due to hemorrhagic radiation cystitis. He required multiple transfusions for a total of 8 units transfusion 20 was in the hospital. This patient has antibodies which necessitates blood to be solicited directly from [facility]. During the course of the admission up to November 15 he had received a total of 9 units of blood. The failure of arrest of hematuria necessitated the patient to have formalin irrigation in the bladder to help arrest bleeding. He underwent cystoscopy, clot evacuation, fulguration of bleeding, cystograph and intravesically installation of 1% formalin on 11/16/2016. He was later continued on CBI. Patient's urine eventually cleared up. His CBI was discontinued and the [facility] report. Patient was able to successfully wide spontaneously with minimal postvoid residue. He should follow-up with wound care center for hyperbaric oxygen therapy for treatment of radiation cystitis. Opiate dependence: Patient has chronic pain and takes opiates. However, the patient request his extended release morphine to be decreased to 15mg from 30 sighting that he does not take the medication regularly at home. His pain remained controlled during the stay. Please adjust his home discharge medication to reflect his home dose. Paroxysmal atrial fibrillation: Patient has history of PAF. EKG on admission revealed atrial fibrillation at a controlled rate. Patient currently was on Eliquis at home. Given his persistence hematuria elliquis was stopped during the course of this admssion. The patient has high risk of clot but the benefit of stopping surpassed the risk. After admission in the ICU the patient was supposed to be in telemetry given posses observed during the stay but he chose not to be on playground monitor hence transfer to general medicine floor. Cardiology consult was obtained. As per client services director recommendation patient has responded well to Eliquis in the past. Since there was no event of bleeding after formalin fulguration recommendation was given to restart Eliquis 5 twice a day on 2016. We will watch him for 24 hours for bleeding. Instruction would be given to the patient and family to watch for bleeding in future upon discharge. He will need to follow-up with cardiology upon discharge Diabetes type 2 Patient has history of diabetes mellitus. During the course of this admission he was maintained on insulin with good glucose control. Urinary Tract Infection, treated Urine culture was positive for Escherichia coli and patient has finished a course of ciprofloxacin for 7 days, last dose was on 11/06/16, he has remained afebrile ever since. Allergies: Coded Allergies: NO KNOWN ALLERGIES (06/07/16) Significant Procedures: 11/01/16: Cystoscopy, extensive clot evacuation, fulguration of bleeding 11/16/16: Cystoscopy, clot evacuation, fulgeration of bleeding,cystogram and intravesical instillation of 1% formalin Pertinent Lab Results: Laboratory Tests 11/18 11/17 0531 0524 Chemistry Sodium (137 - 145 mmol/L) 139 Potassium (3.5 - 5.1 mmol/L) 4.9 Chloride (98 - 107 mmol/L) 103 Carbon Dioxide (22 - 30 mmol/L) 26 Anion Gap (5 - 16) 10 BUN (9 - 20 mg/dL) 46 H Creatinine (0.7 - 1.2 mg/dL) 2.0 H Estimated GFR (>60 ml/min) 34 L BUN/Creatinine Ratio (7 - 25 %) 23.0 Hematology CBC w Diff NO MAN DIFF REQ NO MAN DIFF REQ WBC (4.8 - 10.8 /CUMM) 5.5 8.8 RBC (4.70 - 6.10 /CUMM) 2.49 L 2.70 L Hgb (14.0 - 18.0 G/DL) 7.9 L 8.3 L Hct (42 - 52 %) 23.1 L 25.0 L MCV (80.0 - 94.0 FL) 92.8 92.7 MCH (27.0 - 31.0 PG) 31.8 H 30.9 RDW (11.5 - 14.5 %) 17.2 H 16.8 H Plt Count (130 - 400 /CUMM) 203 250 MPV (7.4 - 10.4 FL) 7.4 7.2 L Gran % (42.2 - 75.2 %) 74.3 81.7 H Lymphocytes % (20.5 - 51.1 %) 9.9 L 5.2 L Monocytes % (1.7 - 9.3 %) 11.3 H 7.9 Eosinophils % (0 - 5 %) 4.4 4.7 Basophils % (0.0 - 2.0 %) 0.1 0.5 Absolute Granulocytes (1.4 - 6.5 /CUMM) 4.1 7.2 H Absolute Lymphocytes (1.2 - 3.4 /CUMM) 0.5 L 0.5 L Absolute Monocytes (0.10 - 0.60 /CUMM) 0.6 0.7 H Absolute Eosinophils (0.0 - 0.7 /CUMM) 0.2 0.4 Absolute Basophils (0.0 - 0.2 /CUMM) 0 0 PUBS MCHC (33.0 - 37.0 G/DL) 34.3 33.4 05/24 0620 Chemistry Sodium (137 - 145 mmol/L) 141 Potassium (3.5 - 5.1 mmol/L) 4.4 Chloride (98 - 107 mmol/L) 106 Carbon Dioxide (22 - 30 mmol/L) 26 Anion Gap (5 - 16) 9 BUN (9 - 20 mg/dL) 50 H Creatinine (0.7 - 1.2 mg/dL) 2.1 H Estimated GFR (>60 ml/min) 32 L BUN/Creatinine Ratio (7 - 25 %) 23.8 Hematology CBC w Diff NO MAN DIFF REQ WBC (4.8 - 10.8 /CUMM) 7.0 RBC (4.70 - 6.10 /CUMM) 2.59 L Hgb (14.0 - 18.0 G/DL) 8.5 L Hct (42 - 52 %) 24.4 L MCV (80.0 - 94.0 FL) 94.5 H MCH (27.0 - 31.0 PG) 33.0 H RDW (11.5 - 14.5 %) 16.3 H Plt Count (130 - 400 /CUMM) 235 MPV (7.4 - 10.4 FL) 7.1 L Gran % (42.2 - 75.2 %) 81.0 H Lymphocytes % (20.5 - 51.1 %) 8.3 L Monocytes % (1.7 - 9.3 %) 7.8 Eosinophils % (0 - 5 %) 2.6 Basophils % (0.0 - 2.0 %) 0.3 Absolute Granulocytes (1.4 - 6.5 /CUMM) 5.6 Absolute Lymphocytes (1.2 - 3.4 /CUMM) 0.6 L Absolute Monocytes (0.10 - 0.60 /CUMM) 0.5 Absolute Eosinophils (0.0 - 0.7 /CUMM) 0.2 Absolute Basophils (0.0 - 0.2 /CUMM) 0 PUBS MCHC (33.0 - 37.0 G/DL) 34.9 Disposition Summary Disposition Principal Diagnosis: 1. Acute blood loss anemia secondary to gross hematuria 2. Gross hematuria secondary to radiation cystitis 3. Urinary tract infection, resolved Additional Diagnosis: Diabetes mellitus EtOH dependence Chronic Pain Syndrome Afib on anticoagulation Discharge Disposition: home health services Discharge Instructions General Discharge Information Code Status: Full Code Patient's Diet: Diabetic diet Patient's Activity: As tolerated with physical therapy Follow-Up Instructions/Appts: Please visit your primary care physician within 7 days of discharge. These visit urology service Dr. Yahir Acharya, within 7 days of discharge. Please return to emergency if symptoms worsen. DO NOT DRINK ALCOHOL. Medications at Discharge Discharge Medications: Stop taking the following medications: Morphine Sulfate (Ms Contin) 30 MG TABLET.ER ORAL 2 x Daily as needed as needed for Chronic Back Pain Continue taking these medications: Gabapentin (Gabapentin) 300 MG CAPSULE 2 Capsule ORAL THREE TIMES DAILY Qty = 180 Comments: Last Taken: 11/22/16 Time: 11 AM Tamsulosin HCl (Tamsulosin HCl) 0.4 MG CAP.ER.24H 1 Capsule ORAL DAILY Qty = 30 Comments: Last Taken: 11/22/16 Time: 11 AM Budesonide/Formoterol Fumarate (Symbicort 160-4.5 Mcg Inhaler) 10.2 GM HFA.AER.AD 2 Puff Inhale through mouth TWICE DAILY Qty = 10 Comments: Last Taken:11/22/16 Time: 11 AM Atorvastatin Calcium (Atorvastatin Calcium) 20 MG TABLET 1 Tablet ORAL DAILY Qty = 30 Comments: Last Taken: 11/22/16 Time:11 AM Metoprolol Succ XL (Toprol XL) 25 MG TAB.ER.24H 1 Tablet ORAL DAILY Comments: Last Taken: 11/22/16 Time: 11 AM Aspirin (Ecotrin*) 81 MG TABLET.DR 1 Tablet ORAL DAILY Comments: Last Taken: NOT GIVEN IN HOSPITAL Time: Folic Acid (Folic Acid) 1 MG TABLET 1 Tablet ORAL DAILY Qty = 30 Comments: Last Taken: 11/22/16 Time: 11 AM Duloxetine HCl (Duloxetine HCl) 60 MG CAPSULE.DR 1 Capsule ORAL Every Morning Qty = 90 Comments: Last Taken: 11/22/16 Time: 1A AM Albuterol Sulfate (Ventolin Hfa) 90 MCG HFA.AER.AD 2 Puff Inhale through mouth EVERY 4-6 HOURS NEEDED as needed for COPD Qty = 18 Comments: Last Taken:11/19/16 Time:5 PM Insulin Detemir (Levemir) 100 UNIT/ML VIAL 14 Units Inject into fatty tissue DAILY Comments: Last Taken: 11/22/16 Time: 11 AM Oxycodone HCl (Oxycodone HCl) 15 MG TABLET 1 Tablet ORAL Every 4 hours as needed for Chronic Back Pain Comments: Last Taken:11/22/16 Time: 8:30 AM Apixaban (Eliquis) 5 MG TABLET 1 Tablet ORAL TWICE DAILY Comments: Last Taken:11/22/16 Time:11 AM Start taking the following new medications: Ferrous Sulfate (Ferrous Sulfate) 325 MG (65 MG IRON) TABLET.DR 325 Milligram ORAL DAILY as needed for SUPPLEMENT Qty = 30 No Refills Comments: Last Taken:11/22/16 Time: 11 AM Morphine Sulfate (Ms Contin) 100 MG TABLET.ER 15 Milligram ORAL EVERY 12 HOURS Qty = 30 No Refills Comments: Last Taken:11/22/16 Time:11 AM Polyethylene Glycol 3350 (Miralax) 17 GRAM/DOSE POWDER 17 Gram ORAL DAILY as needed for CONSTIPATION Qty = 30 No Refills Comments: Last Taken:11/19/16 Time:1030 AM Sennosides/Docusate Sodium (Senna Plus Tablet) 8.6 MG-50 MG TABLET 1 Tablet ORAL TWICE DAILY as needed for CONSTIPATION Qty = 45 No Refills Comments: Last Taken:NOT GIVEN IN HOSPITAL Time: Multivitamin (One Daily Multivitamin) 1 EACH TABLET 1 Tablet ORAL DAILY Qty = 30 No Refills Comments: Last Taken:11/22/16 Time:11 AM Copies To: JUAN ARCEO,YAHIR Stearns; KRISTYN ARCEO,ASPEN JOHNSON MD PhD,EVETTE Schneider Attending MD Review Statement Documenting Attending: NAKUL CRUZ M.D Other Findings: I have reviewed the discharge summary.
[2016-11-18 23:35] VITALS: BP 150/96
[2016-11-19 07:02] VITALS: BP 150/90
--- NOTE | 2016-11-19 08:08 | PN- Housestaff ---
ROMMEL ARCEO,NATA 11/19/16 0808: Subjective Follow-up For: Hematuria, resolved; Eliquis re-started; Prostatitis; Acute blood loss anemia. Complaints: no complaints Subjective: Patient followed up by me today. He is resting comfortably, vital signs have been stable, still has Kaiser catheter on, no overnight issues. No hematuria. Eliquis was started last night. Review of Systems Constitutional: Reports: no symptoms. Objective Last 24 Hrs of Vital Signs/I&O Vital Signs Date Time Temp Pulse Resp B/P B/P Pulse O2 O2 Flow FiO2 Mean Ox Delivery Rate 11/19 0702 97.9 55 20 150/90 98 Room Air 11/18 2335 98.7 73 20 150/96 99 Room Air 11/18 220 140/80 11/18 1512 98.6 77 18 118/62 93 Room Air 11/18 1000 70 120/70 Intake & Output 11/19 1600 11/19 0800 11/19 0000 Intake Total 130 Output Total 200 400 Balance -200 -270 Intake, IV 10 Intake, Oral 120 Output, Urine 200 400 Physical Exam General Appearance: Alert, Oriented X3, Cooperative, No Acute Distress, obese Other Physical Findings: HEENT: Atraumatic, PERRLA, EOMI, Mucous Membr. moist/pink Cardiovascular: Normal S1, Normal S2, irregular Lungs: no change from yesterday, not in distress Abdomen: Normal Bowel Sounds, Soft, No Tenderness Extremities: No Clubbing, No Cyanosis, No Edema, LBKA No Kaiser on, but no red urine collected. Current Medications: Current Medications Sig/Avery Start time Last Medication Dose Route Stop Time Status Admin Albuterol Sulfate 2 PUF Q6 11/16 1800 AC 11/18 INH 1702 Apixaban 5 MG BID 11/19 1000 AC PO Atorvastatin Calcium 20 MG DAILY 11/17 1000 AC 11/18 PO 0959 Bisacodyl 10 MG DAILY PRN 11/17 0830 AC OR Budesonide/ 2 PUF BID 11/16 2199 AC 11/18 Formoterol Fumarate INH 2200 Duloxetine HCl 60 MG DAILY 11/17 1000 AC 11/18 PO 0958 Ferrous Sulfate 325 MG DAILY 11/18 1000 AC 11/18 PO 0959 Folic Acid 1 MG DAILY 11/17 1000 AC 11/18 PO 0959 Gabapentin 600 MG TID 11/16 2199 AC 11/18 PO 2202 Insulin Aspart 0 TIDAC 11/17 0800 AC 11/18 SC 1657 Insulin Aspart 0 AT BEDTIME 11/16 2200 AC SC Insulin Detemir 14 UNITS DAILY 11/17 1000 AC 11/18 SC 0959 Metoprolol Tartrate 6.25 MG BID 11/16 2200 AC 11/18 PO 2202 Morphine Sulfate 15 MG Q12 11/16 2200 AC 11/18 PO 2203 Multivitamins 1 TAB DAILY 11/17 1000 AC 11/18 PO 0959 Nicotine 7 MG DAILY 11/17 1000 AC 11/18 TOP 0958 Oxycodone HCl 15 MG Q4P PRN 11/16 2145 AC 11/19 PO 0338 Polyethylene Glycol 17 GM DAILY 11/17 1000 AC 11/18 PO 0958 Senna/Docusate Sodium 1 TAB BID PRN 11/16 1700 AC PO Tamsulosin HCl 0.4 MG DAILY 11/17 1000 AC 11/18 PO 1000 Last 24 Hrs of Lab/Manny Results Last 24 Hrs of Labs/Mics: Laboratory Tests 11/19/16 0600: Sodium Pending, Potassium Pending, Chloride Pending, Carbon Dioxide Pending, Anion Gap Pending, BUN Pending, Creatinine Pending, BUN/Creatinine Ratio Pending , CBC w Diff Pending, WBC Pending, RBC Pending, Hgb Pending, Hct Pending, MCV Pending, MCH Pending, RDW Pending, Plt Count Pending, MPV Pending, PUBS MCHC Pending Assessment/Plan Assessment: 66-year-old gentleman with past medical history of prostate cancer status post radiation hepatitis C status post treatment, hypertension, diabetes, infective endocarditis, afib refractory to cardioversion intially on coumadin which was stopped due to GI bleed mitral regurgitation with prolapse, status post mitral valve repair with a Maze procedure performed in November of 2010, diabetes, left leg below-knee amputation, opiate dependence, alcohol overuse, alcohol withdrawal seizures, GI bleed, MRSA bacteremia, who presented to the ED on the evening of 10/29/2016, for Alcohol withdrawal symptoms and gross hematuria. He is currently being managed in general medical floor for the following issues: Acute blood loss anemia, secondary to gross hematuria: Patient's hematuria has been attributed to radiation cystitis. Patient's H&H today is 7.9/23.1. Iron supplement has been added. * Patient underwent fulguration and 1% formalin installation in the urinary bladder on 11/16/16. * According to urology services, Kaiser catheter was removed today. Do NOT place the patient on straight catheter protocol. If the patient does not urinate or has post voidal residual urine more than 300 mL, a Kaiser catheter can be placed , but NO straight catheter. If the patient has gross hematuria, call urology services immediately. * According to Dr Mccall, this can be done also as an outpatient basis. * Patient has blood group and has rare antibodies, thus cannot be given any blood from the blood bank. It has to be ordered from [facility] and takes few hours to reach, thus in case of worsening hematuria, [facility] and blood bank at [place] should be contacted immediately as well as urology service. Urinary Tract Infection, treated Urine culture was positive for Escherichia coli and patient has finished a course of ciprofloxacin for 7 days, last dose was on 11/06/16, he has remained afebrile ever since. Alcohol withdrawal (resolved) Completed full course of Librium bhanu. Atrial fibrillation/hypertension/hyperlipidemia Patient has [id number] Score or 3 points, he has 3.2% risk of stroke per year and 4.6% risk of stroke/TIA/systemic embolism. Patient restarted on Eliquis as before hospitalization yesterday evening and was for any hematuria. He has not had had any hematuria so far, but will continue to monitor as he has required 8 units of blood during this admission only. After 24-48 hours of no hematuria, the patient would be stable enough to be discharged. History of chronic kidney disease Stable renal function, creatinine today is 2.2 Diabetes mellitus: Fingerstick glucose in the past 24 hours is under control. Patient on consistent carbohydrate 3 diet. He gets Levemir 14 units daily and insulin sliding scale Continue with Accu-Cheks and diabetic management regimen -Diabetic diet -Pain management is adequate with current plan, (decreased per patient's request ), but received one extra dose of IV Morphine in place of PO Oxycodone. -DVT prophylaxis is mechanical only because of ongoing blood loss -Full code Problem List: 1. Radiation cystitis 2. Alcohol dependence 3. Diabetes mellitus 4. CKD (chronic kidney disease) 5. History of prostate cancer 6. Acute blood loss anemia Pain Ratin Pain Location: lower abd near urethrera Pain Goal: Pain 4 or less Pain Plan: prn Tomorrow's Labs & Rationales: CBC, BEP. PAWEL GUILLORY 11/19/16 1102: Attending MD Review Statement Attending Statement Attending MD Statement: examined this patient, discuss w/resident/PA/FAMILY MEDICINE RESIDENT, agreed w/resident/PA/FAMILY MEDICINE RESIDENT, discussed with family, reviewed EMR data (avail), discussed with nursing, discussed with case mgmt, reviewed images, amended to note Attending Assessment/Plan: Patient's Kaiser was discontinued. The CBI was stopped, check post residual void <300ml "This is an extremely complex 66-year-old male who has been here since October 30. He has diabetes, coronary artery disease, A. fib with a Maze procedure and mitral valve repair, alcohol dependence and multiple other problems. His active issue right now has been ongoing hematuria attributed to radiation cystitis that required continuous bladder irrigation for multiple days. He suffered severe blood loss anemia requiring almost 8 units of blood over the course of his entire hospitalization. He was taken to the OR on 11/16 for fiulgration, cystoscopy, formalin infusion for treatment of radiation cystitis and finally we were able to taper the CBI off on 11/17. Today we took out the Kaiser and give him a trial of voiding and follow Dr. Acharya's recommendations closely. He's also seen by Dr. Ann and because of his high chads score and high risk of stroke, the plan is to watch him on restart his Eliquis. Given his severe anemia I would watch him for at least 24-48 hours on the Eliquis and make sure he holds onto his hematocrit before discharge. He's been cleared by PT for home discharge with visiting nurse service." cbc today stable, can monitor tomorrow, anticipate d/c soon.
[2016-11-19 08:29] LABS: ABSOLUTE BASOPHIL COUNT 0 /CUMM (0.0-0.2); ABSOLUTE EOSINOPHIL COUNT 0.3 /CUMM (0.0-0.7); ABSOLUTE GRANULOCYTE CT 4.8 /CUMM (1.4-6.5); ABSOLUTE LYMPH COUNT 0.6 /CUMM (1.2-3.4); ABSOLUTE MONOCYTE COUNT 0.7 /CUMM (0.10-0.60); BASOPHIL % 0.4 % (0.0-2.0); EOSINOPHIL % 4.5 % (0-5); GRANULOCYTE % 74.5 % (42.2-75.2); MEAN CORPUSCULAR HGB 30.9 PG (27.0-31.0); MEAN CORPUSCULAR HGB CONC 33.5 G/DL (33.0-37.0); MEAN CORPUSCULAR VOLUME 92.2 FL (80.0-94.0); MEAN PLATELET VOLUME 7.5 FL (7.4-10.4); PLATELET COUNT 220 /CUMM (130-400); RBC DISTRIBUTION WIDTH 16.5 % (11.5-14.5); RED BLOOD CELL CT 2.71 /CUMM (4.70-6.10); WHITE BLOOD CELL COUNT 6.5 /CUMM (4.8-10.8)
[2016-11-19 14:30] VITALS: BP 130/80
[2016-11-19 23:09] VITALS: BP 142/82
[2016-11-20 06:53] VITALS: BP 146/90
--- NOTE | 2016-11-20 08:40 | PN- Housestaff ---
BRENT ARCEO,ELSA 11/20/16 0839: Subjective Follow-up For: Hematuria, resolved; Eliquis re-started; Prostatitis; Acute blood loss anemia. Subjective: I saw and examined the patient today morning He is lying in the bed in no distress. No overnight events. He does have pain - but better with his current pain medications. Had a PICC line Review of Systems Constitutional: Reports: see HPI. Objective Last 24 Hrs of Vital Signs/I&O Vital Signs Date Time Temp Pulse Resp B/P B/P Pulse O2 O2 Flow FiO2 Mean Ox Delivery Rate 11/20 08 80 150/92 11/20 0825 80 150/92 11/20 0653 97.6 82 20 146/90 94 Room Air 11/19 2309 97.7 64 18 142/82 97 11/19 1430 98.0 79 20 130/80 97 Room Air 11/19 1037 80 100/60 11/19 1036 80 100/60 Intake & Output 11/20 1600 11/20 0800 11/20 0000 Intake Total Output Total 700 Balance -700 Output, Urine 700 Physical Exam General Appearance: Alert, Oriented X3, Cooperative Skin: No Rashes, No Breakdown HEENT: Atraumatic, PERRLA, EOMI Neck: Supple Cardiovascular: Normal S1, Normal S2 Lungs: Clear to Auscultation, Normal Air Movement Abdomen: Normal Bowel Sounds, Soft, No Tenderness Neurological: Normal Speech, Sensation Intact Extremities: No Clubbing, No Cyanosis, left BKA Vascular: Normal Pulses Current Medications: Current Medications Sig/Avery Start time Last Medication Dose Route Stop Time Status Admin Albuterol Sulfate 2 PUF Q6 11/16 1800 AC 11/19 INH 1721 Apixaban 5 MG BID 11/19 1000 AC 11/20 PO 0825 Atorvastatin Calcium 20 MG DAILY 11/17 1000 AC 11/20 PO 0825 Bisacodyl 10 MG DAILY PRN 11/[address] Budesonide/ 2 PUF BID 11/16 220 AC 11/20 Formoterol Fumarate INH 0825 Duloxetine HCl 60 MG DAILY 11/17 1000 AC 11/20 PO 0825 Ferrous Sulfate 325 MG DAILY 11/18 1000 AC 11/20 PO 0825 Folic Acid 1 MG DAILY 11/17 1000 AC 11/20 PO 0825 Gabapentin 600 MG TID 11/16 2199 AC 11/20 PO 0824 Insulin Aspart 0 TIDAC 11/17 0800 AC 11/20 SC 0759 Insulin Aspart 0 AT BEDTIME 11/16 2200 AC SC Insulin Detemir 14 UNITS DAILY 11/17 1000 AC 11/19 SC 1037 Metoprolol Tartrate 6.25 MG BID 11/16 2200 AC 11/20 PO 0825 Morphine Sulfate 15 MG Q12 11/16 2200 AC 11/19 PO 2203 Multivitamins 1 TAB DAILY 11/17 1000 AC 11/20 PO 0824 Nicotine 7 MG DAILY 11/17 1000 AC 11/20 TOP 0824 Oxycodone HCl 15 MG Q4P PRN 11/16 2145 AC 11/20 PO 0824 Polyethylene Glycol 17 GM DAILY 11/17 1000 AC 11/19 PO 1037 Senna/Docusate Sodium 1 TAB BID PRN 11/16 1700 AC PO Tamsulosin HCl 0.4 MG DAILY 11/17 1000 AC 11/20 PO 0825 Assessment/Plan Assessment: 66-year-old gentleman with past medical history of prostate cancer status post radiation hepatitis C status post treatment, hypertension, diabetes, infective endocarditis, afib refractory to cardioversion intially on coumadin which was stopped due to GI bleed mitral regurgitation with prolapse, status post mitral valve repair with a Maze procedure performed in November of 2010, diabetes, left leg below-knee amputation, opiate dependence, alcohol overuse, alcohol withdrawal seizures, GI bleed, MRSA bacteremia, who presented to the ED on the evening of 10/29/2016, for Alcohol withdrawal symptoms and gross hematuria. He is currently being managed in general medical floor for the following issues: Acute blood loss anemia, secondary to gross hematuria: Patient's hematuria has been attributed to radiation cystitis. Patient's H&H today is 7.9/23.1. Iron supplement has been added. * Patient underwent fulguration and 1% formalin installation in the urinary bladder on 11/16/16. * According to urology services. Do NOT keep patient on straight cath protocol. For now voiding well. IF not please keep on king again (IF PVRV >300ml) * According to Dr Mccall, this can be done also as an outpatient basis. * Patient has blood group and has rare antibodies, thus cannot be given any blood from the blood bank. It has to be ordered from [facility] and takes few hours to reach, thus in case of worsening hematuria, [place] and blood bank at [place] should be contacted immediately as well as urology service. Urinary Tract Infection, treated Urine culture was positive for Escherichia coli and patient has finished a course of ciprofloxacin for 7 days, last dose was on 11/06/16, he has remained afebrile ever since. Alcohol withdrawal (resolved) Completed full course of Librium bhanu. Atrial fibrillation/hypertension/hyperlipidemia Patient has [id number] Score or 3 points, he has 3.2% risk of stroke per year and 4.6% risk of stroke/TIA/systemic embolism. Patient restarted on Eliquis as before hospitalization yesterday evening and was for any hematuria. He has not had had any hematuria so far, but will continue to monitor as he has required 8 units of blood during this admission only. His Hb dropped by 1 point today although there is no evidence of bleed, stool guiac is negative. So we will recheck CBC tomorrow. History of chronic kidney disease Stable renal function, creatinine today is 2.2 Diabetes mellitus: Fingerstick glucose in the past 24 hours is under control. Patient on consistent carbohydrate 3 diet. He gets Levemir 14 units daily and insulin sliding scale Continue with Accu-Cheks and diabetic management regimen -Diabetic diet -Pain management is adequate with current plan, (decreased per patient's request ), but received one extra dose of IV Morphine in place of PO Oxycodone. -DVT prophylaxis is mechanical only because of ongoing blood loss -Full code Problem List: 1. Radiation cystitis 2. Status post debridement 3. Alcohol withdrawal 4. Chronic anemia Pain Ratin Pain Location: n/a Pain Goal: Pain 4 or less Pain Plan: tylenol prn Tomorrow's Labs & Rationales: cbc to monitor H&H PAWEL GUILLORY 11/20/16 1051: Attending MD Review Statement Attending Statement Attending MD Statement: examined this patient, discuss w/resident/PA/RECORD PRESS TENDER, agreed w/resident/PA/RECORD PRESS TENDER, discussed with family, reviewed EMR data (avail), discussed with nursing, discussed with case mgmt, reviewed images, amended to note Attending Assessment/Plan: Patient's King was discontinued. The CBI was stopped, check post residual void <300ml "This is an extremely complex 66-year-old male who has been here since October 30. He has diabetes, coronary artery disease, A. fib with a Maze procedure and mitral valve repair, alcohol dependence and multiple other problems. His active issue right now has been ongoing hematuria attributed to radiation cystitis that required continuous bladder irrigation for multiple days. He suffered severe blood loss anemia requiring almost 8 units of blood over the course of his entire hospitalization. He was taken to the OR on 11/16 for fiulgration, cystoscopy, formalin infusion for treatment of radiation cystitis and finally we were able to taper the CBI off on 11/17. Today we took out the King and give him a trial of voiding and follow Dr. Acharya's recommendations closely. He's also seen by Dr. Ann and because of his high chads score and high risk of stroke, the plan is to watch him on restart his Eliquis. Given his severe anemia I would watch him for at least 24-48 hours on the Eliquis and make sure he holds onto his hematocrit before discharge. He's been cleared by PT for home discharge with visiting nurse service." cbc stable, anticipate d/c soon, f/u o/p PCP. wound care Dr Carter, Urology. discharge with visiting nurse service." cbc stable, anticipate d/c soon, f/u o/p PCP. wound care Dr Carter, Urology.
[2016-11-20 11:49] LABS: ABSOLUTE BASOPHIL COUNT 0 /CUMM (0.0-0.2); ABSOLUTE EOSINOPHIL COUNT 0.3 /CUMM (0.0-0.7); ABSOLUTE GRANULOCYTE CT 3.8 /CUMM (1.4-6.5); ABSOLUTE LYMPH COUNT 0.4 /CUMM (1.2-3.4); ABSOLUTE MONOCYTE COUNT 0.6 /CUMM (0.10-0.60); BASOPHIL % 0.5 % (0.0-2.0); EOSINOPHIL % 5.7 % (0-5); GRANULOCYTE % 73.9 % (42.2-75.2); HEMATOCRIT 22.5 % (42-52); MEAN CORPUSCULAR HGB 30.6 PG (27.0-31.0); MEAN CORPUSCULAR HGB CONC 33.3 G/DL (33.0-37.0); MEAN CORPUSCULAR VOLUME 91.9 FL (80.0-94.0); MEAN PLATELET VOLUME 7.5 FL (7.4-10.4); PLATELET COUNT 185 /CUMM (130-400); RBC DISTRIBUTION WIDTH 17.1 % (11.5-14.5); RED BLOOD CELL CT 2.45 /CUMM (4.70-6.10); WHITE BLOOD CELL COUNT 5.2 /CUMM (4.8-10.8)
[2016-11-20 14:29] VITALS: BP 130/60
[2016-11-20 22:12] VITALS: BP 122/60
[2016-11-21 06:30] VITALS: BP 134/78
--- NOTE | 2016-11-21 07:23 | PN- Housestaff ---
BRENT ARCEO,ELSA 11/21/16 0722: Subjective Follow-up For: Hematuria, resolved; Eliquis re-started; Prostatitis; Acute blood loss anemia. Subjective: I saw and examined the patient today morning No overnight issues. He is doing well. No pain, denies any bleed. Urine is clear at bedside Informed patient that he needs to get one more transfusion today. we will obtain CBC at 5pm and then get a CBCt tomorrow. Explained that he cant be discharged today as it is not safe. He agrees with the plan. Review of Systems Constitutional: Reports: see HPI. Objective Last 24 Hrs of Vital Signs/I&O Vital Signs Date Time Temp Pulse Resp B/P B/P Pulse O2 O2 Flow FiO2 Mean Ox Delivery Rate 11/21 629 97.8 61 20 134/78 96 Room Air 11/20 2212 97.3 68 20 122/60 97 11/20 2138 68 122/60 11/20 1600 96 Room Air 11/20 1429 98.8 90 18 130/60 99 Room Air 11/20 0825 80 150/92 11/20 0825 80 150/92 Intake & Output 11/21 0800 11/21 0000 11/20 1600 Intake Total 450 500 Output Total 800 200 Balance -350 500 -200 Intake, Oral 450 500 Number 2 Bowel Movements Output, Urine 800 200 Physical Exam General Appearance: Alert, Oriented X3, Cooperative Skin: No Rashes, No Breakdown HEENT: Atraumatic, PERRLA, EOMI Neck: Supple Cardiovascular: Normal S1, Normal S2 Lungs: Clear to Auscultation, Normal Air Movement Abdomen: Normal Bowel Sounds, Soft, No Tenderness Extremities: No Clubbing, No Cyanosis, right BKA Current Medications: Current Medications Sig/Avery Start time Last Medication Dose Route Stop Time Status Admin Albuterol Sulfate 2 PUF Q6 11/16 1800 AC 11/19 INH 1721 Apixaban 5 MG BID 11/19 1000 AC 11/20 PO 213 Atorvastatin Calcium 20 MG DAILY 11/17 1000 AC 11/20 PO 0825 Bisacodyl 10 MG DAILY PRN 11/17 0830 AC [place] Budesonide/ 2 PUF BID 11/16 2200 AC 11/20 Formoterol Fumarate INH 213 Duloxetine HCl 60 MG DAILY 11/17 1000 AC 11/20 PO 0825 Ferrous Sulfate 325 MG DAILY 11/18 1000 AC 11/20 PO 0825 Folic Acid 1 MG DAILY 11/17 1000 AC 11/20 PO 0825 Gabapentin 600 MG TID 11/16 2199 AC 11/20 PO 2135 Insulin Aspart 0 TIDAC 11/17 0800 AC 11/20 SC 1624 Insulin Aspart 0 AT BEDTIME 11/16 2200 AC SC Insulin Detemir 14 UNITS DAILY 11/17 1000 AC 11/20 SC 1019 Metoprolol Tartrate 6.25 MG BID 11/16 220 AC 11/20 PO 2138 Morphine Sulfate 15 MG Q12 11/16 2200 AC 11/20 PO 2135 Multivitamins 1 TAB DAILY 11/17 1000 AC 11/20 PO 0824 Nicotine 7 MG DAILY 11/17 1000 AC 11/20 TOP 0824 Oxycodone HCl 15 MG Q4P PRN 11/16 2144 AC 11/21 PO 0158 Polyethylene Glycol 17 GM DAILY 11/17 1000 AC 11/19 PO 1037 Senna/Docusate Sodium 1 TAB BID PRN 11/16 1700 AC PO Tamsulosin HCl 0.4 MG DAILY 11/17 1000 AC 11/20 PO 0825 Assessment/Plan Assessment: 66-year-old gentleman with past medical history of prostate cancer status post radiation hepatitis C status post treatment, hypertension, diabetes, infective endocarditis, afib refractory to cardioversion intially on coumadin which was stopped due to GI bleed mitral regurgitation with prolapse, status post mitral valve repair with a Maze procedure performed in November of 2010, diabetes, left leg below-knee amputation, opiate dependence, alcohol overuse, alcohol withdrawal seizures, GI bleed, MRSA bacteremia, who presented to the ED on the evening of 10/29/2016, for Alcohol withdrawal symptoms and gross hematuria. He is currently being managed in general medical floor for the following issues: Acute blood loss anemia, secondary to gross hematuria: Patient's hematuria has been attributed to radiation cystitis. Patient's H&H today is 7.9/23.1. Iron supplement has been added. * Patient underwent fulguration and 1% formalin installation in the urinary bladder on 11/16/16. * According to urology services. Do NOT keep patient on straight cath protocol. For now voiding well. IF not please keep on king again (IF PVRV >300ml) * According to Dr Mccall, this can be done also as an outpatient basis. * Patient has blood group and has rare antibodies, thus cannot be given any blood from the blood bank. It has to be ordered from [place] and takes few hours to reach, thus in case of worsening hematuria, [place] and blood bank at [place] should be contacted immediately as well as urology service. * recieved one more transfusion today. we will repeat cbc today and tomorrow and make sure it remians stable. Urinary Tract Infection, treated Urine culture was positive for Escherichia coli and patient has finished a course of ciprofloxacin for 7 days, last dose was on 11/06/16, he has remained afebrile ever since. Alcohol withdrawal (resolved) Completed full course of Librium bhanu. Atrial fibrillation/hypertension/hyperlipidemia Patient has [id number] Score or 3 points, he has 3.2% risk of stroke per year and 4.6% risk of stroke/TIA/systemic embolism. Patient restarted on Eliquis as before hospitalization. He has not had had any hematuria so far, but will continue to monitor as he has required 8 units of blood during this admission only. His Hb dropped by 1 point today although there is no evidence of bleed, stool guiac is negative. Got 1 unit transfusion today. So we will recheck CBC tomorrow. History of chronic kidney disease His Cr and BUN is slowly raising. I spoke with environmental intern. He reports that he may not able to see the patient today. He reports to discharge if this is the only issue and aske patient to call office tomorrow for follow up. As patient has other issues for discharge -we will obtain nephro input tomorrow. Diabetes mellitus: Fingerstick glucose in the past 24 hours is under control. Patient on consistent carbohydrate 3 diet. He gets Levemir 14 units daily and insulin sliding scale Continue with Accu-Cheks and diabetic management regimen -Diabetic diet -Pain management is adequate with current plan, (decreased per patient's request ), but received one extra dose of IV Morphine in place of PO Oxycodone. -DVT prophylaxis is mechanical only because of ongoing blood loss -Full code Problem List: 1. A.FIBB S/P CARDIOVERSION 2. Renal insufficiency 3. Diabetes mellitus 4. CKD (chronic kidney disease) 5. History of prostate cancer 6. Acute blood loss anemia 7. Gross hematuria Pain Ratin Pain Location: n/a Pain Goal: Pain 4 or less Pain Plan: tylenol prn Tomorrow's Labs & Rationales: cbc, bep to monitor H&H and cr PASTORAPAWEL Lassiter 11/21/16 1119: Attending MD Review Statement Attending Statement Attending MD Statement: examined this patient, discuss w/resident/PA/EDGE GLUE MACHINE TENDER, agreed w/resident/PA/EDGE GLUE MACHINE TENDER, discussed with family, reviewed EMR data (avail), discussed with nursing, discussed with case mgmt, reviewed images, amended to note Attending Assessment/Plan: Patient's King was discontinued. The CBI was stopped, check post residual void <300ml "This is an extremely complex 66-year-old male who has been here since October 30. He has diabetes, coronary artery disease, A. fib with a Maze procedure and mitral valve repair, alcohol dependence and multiple other problems. His active issue right now has been ongoing hematuria attributed to radiation cystitis that required continuous bladder irrigation for multiple days. He suffered severe blood loss anemia requiring almost 8 units of blood over the course of his entire hospitalization. He was taken to the OR on 11/16 for fiulgration, cystoscopy, formalin infusion for treatment of radiation cystitis and finally we were able to taper the CBI off on 11/17. Today we took out the King and give him a trial of voiding and follow Dr. Acharya's recommendations closely. He's also seen by Dr. Ann and because of his high chads score and high risk of stroke, the plan is to watch him on restart his Eliquis. Given his severe anemia I would watch him for at least 24-48 hours on the Eliquis and make sure he holds onto his hematocrit before discharge. He's been cleared by PT for home discharge with visiting nurse service." cbc stable, f/u cards about transfusion, f/u nephrology about Cr slowly creeping up, anticipate d/c soon, f/u o/p PCP. wound care Dr Carter, Urology.
[2016-11-21 09:02] LABS: ABSOLUTE BASOPHIL COUNT 0 /CUMM (0.0-0.2); ABSOLUTE EOSINOPHIL COUNT 0.3 /CUMM (0.0-0.7); ABSOLUTE GRANULOCYTE CT 4.2 /CUMM (1.4-6.5); ABSOLUTE LYMPH COUNT 0.5 /CUMM (1.2-3.4); ABSOLUTE MONOCYTE COUNT 0.5 /CUMM (0.10-0.60); BASOPHIL % 0.4 % (0.0-2.0); GRANULOCYTE % 74.8 % (42.2-75.2); HEMATOCRIT 22.6 % (42-52); MEAN CORPUSCULAR HGB CONC 33.2 G/DL (33.0-37.0); MEAN CORPUSCULAR VOLUME 93.3 FL (80.0-94.0); MEAN PLATELET VOLUME 7.7 FL (7.4-10.4); PLATELET COUNT 204 /CUMM (130-400); RBC DISTRIBUTION WIDTH 17.3 % (11.5-14.5); RED BLOOD CELL CT 2.42 /CUMM (4.70-6.10); WHITE BLOOD CELL COUNT 5.6 /CUMM (4.8-10.8)
[2016-11-21 15:59] VITALS: BP 140/60
[2016-11-21 17:39] LABS: ABSOLUTE BASOPHIL COUNT 0 /CUMM (0.0-0.2); ABSOLUTE EOSINOPHIL COUNT 0.3 /CUMM (0.0-0.7); ABSOLUTE GRANULOCYTE CT 4.9 /CUMM (1.4-6.5); ABSOLUTE LYMPH COUNT 0.5 /CUMM (1.2-3.4); ABSOLUTE MONOCYTE COUNT 0.6 /CUMM (0.10-0.60); BASOPHIL % 0.3 % (0.0-2.0); EOSINOPHIL % 4.6 % (0-5); GRANULOCYTE % 77.3 % (42.2-75.2); HEMATOCRIT 26.4 % (42-52); MEAN CORPUSCULAR HGB 31.4 PG (27.0-31.0); MEAN CORPUSCULAR HGB CONC 33.8 G/DL (33.0-37.0); MEAN CORPUSCULAR VOLUME 92.8 FL (80.0-94.0); MEAN PLATELET VOLUME 7.6 FL (7.4-10.4); PLATELET COUNT 199 /CUMM (130-400); RBC DISTRIBUTION WIDTH 17.1 % (11.5-14.5); RED BLOOD CELL CT 2.84 /CUMM (4.70-6.10); WHITE BLOOD CELL COUNT 6.3 /CUMM (4.8-10.8)
[2016-11-21 22:23] VITALS: BP 180/100
[2016-11-21 22:35] VITALS: BP 168/60
[2016-11-22 06:40] VITALS: BP 146/60
--- NOTE | 2016-11-22 07:04 | PN- Housestaff ---
ROMMEL ARCEO,NATA 11/22/16 0703: Subjective Follow-up For: Hematuria, resolved; Eliquis re-started; Acute blood loss anemia, s/p BT; Increasing Creatinine. Complaints: no complaints Subjective: I followed up and examined the patient today. He is resting comfortably in bed, is not in distress, does not offer any complaints, vitals have been stable and no overnight issues noted. He did mention that he has been drinking less water than usual. Review of Systems Constitutional: Reports: no symptoms. Objective Last 24 Hrs of Vital Signs/I&O Vital Signs Date Time Temp Pulse Resp B/P B/P Pulse O2 O2 Flow FiO2 Mean Ox Delivery Rate 11/22 1115 84 150/80 11/22 1114 84 150/80 11/22 0640 98.8 86 20 146/60 97 Room Air 11/22 0000 93 Room Air 11/21 2235 168/60 11/21 2223 97.8 71 20 180/100 93 Room Air 11/21 2212 160/68 11/21 1559 97.5 78 20 140/60 96 Intake & Output 11/22 1600 11/22 0800 11/22 0000 Intake Total 480 450 Output Total 900 501 Balance -420 -51 Intake, Oral 480 450 Number 1 Bowel Movements Output, Stool 1 Output, Urine 900 500 Physical Exam General Appearance: Alert, Oriented X3, Cooperative, No Acute Distress, obese Other Physical Findings: Skin: No Rashes, No Breakdown HEENT: Atraumatic, PERRLA, EOMI Neck: Supple Cardiovascular: Normal S1, Normal S2 Lungs: Clear to Auscultation, Normal Air Movement Abdomen: Normal Bowel Sounds, Soft, No Tenderness Extremities: No Clubbing, No Cyanosis, right BKA Current Medications: Current Medications Sig/Avery Start time Last Medication Dose Route Stop Time Status Admin Albuterol Sulfate 2 PUF Q6 11/16 1800 AC 11/19 INH 1721 Apixaban 5 MG BID 11/19 1000 AC 11/22 PO 1115 Atorvastatin Calcium 20 MG DAILY 11/17 1000 AC 11/22 PO 1116 Bisacodyl 10 MG DAILY PRN 11/17 0830 AC OH Budesonide/ 2 PUF BID 11/16 2200 AC 11/22 Formoterol Fumarate INH 1116 Duloxetine HCl 60 MG DAILY 11/17 1000 AC 0530 PO 1115 Ferrous Sulfate 325 MG DAILY 11/18 1000 AC 11/22 PO 1115 Folic Acid 1 MG DAILY 11/17 1000 AC 11/22 PO 1115 Gabapentin 600 MG TID 11/16 2199 AC 11/22 PO 1115 Insulin Aspart 0 TIDAC 11/17 0800 AC 11/21 SC 1658 Insulin Aspart 0 AT BEDTIME 11/16 220 AC SC Insulin Detemir 14 UNITS DAILY 11/17 1000 AC 11/22 SC 1114 Metoprolol Tartrate 6.25 MG BID 11/16 2199 AC 11/22 PO 111 Morphine Sulfate 15 MG Q12 11/16 2200 AC 11/22 PO 1116 Multivitamins 1 TAB DAILY 11/17 1000 AC 11/22 PO 111 Nicotine 7 MG DAILY 11/17 1000 AC 11/22 TOP 1115 Oxycodone HCl 15 MG Q4P PRN 11/16 2145 AC 11/22 PO 0824 Polyethylene Glycol 17 GM DAILY 11/17 1000 AC 11/19 PO 1037 Senna/Docusate Sodium 1 TAB BID PRN 11/16 1700 AC PO Tamsulosin HCl 0.4 MG DAILY 11/17 1000 AC 11/22 PO 1115 Last 24 Hrs of Lab/Manny Results Last 24 Hrs of Labs/Mics: Laboratory Tests 11/22/16 0921: Sodium Pending, Potassium Pending, Chloride Pending, Carbon Dioxide Pending, Anion Gap Pending, BUN Pending, Creatinine Pending, BUN/Creatinine Ratio Pending 11/22/16 0640: CBC w Diff NO MAN DIFF REQ, RBC 2.80 L, MCV 93.2, MCH 31.5 H, RDW 16.8 H, MPV 7.8, Gran % 77.1 H, Lymphocytes % 7.9 L, Monocytes % 9.1, Eosinophils % 5.8 H , Basophils % 0.1, Absolute Granulocytes 4.6, Absolute Lymphocytes 0.5 L, Absolute Monocytes 0.5, Absolute Eosinophils 0.4, Absolute Basophils 0, PUBS MCHC 33.9 11/21/16 1650: CBC w Diff NO MAN DIFF REQ, RBC 2.84 L, MCV 92.8, MCH 31.4 H, RDW 17.1 H, MPV 7.6, Gran % 77.3 H, Lymphocytes % 7.9 L, Monocytes % 9.9 H, Eosinophils % 4.6 , Basophils % 0.3, Absolute Granulocytes 4.9, Absolute Lymphocytes 0.5 L, Absolute Monocytes 0.6, Absolute Eosinophils 0.3, Absolute Basophils 0, PUBS MCHC 33.8 11/21/16 1457: CBC w Diff Cancelled, WBC Cancelled, RBC Cancelled, Hgb Cancelled, Hct Cancelled , MCV Cancelled, MCH Cancelled, RDW Cancelled, Plt Count Cancelled, MPV Cancelled, PUBS MCHC Cancelled Assessment/Plan Assessment: 66-year-old gentleman with past medical history of prostate cancer status post radiation hepatitis C status post treatment, hypertension, diabetes, infective endocarditis, afib refractory to cardioversion intially on coumadin which was stopped due to GI bleed mitral regurgitation with prolapse, status post mitral valve repair with a Maze procedure performed in November of 2010, diabetes, left leg below-knee amputation, opiate dependence, alcohol overuse, alcohol withdrawal seizures, GI bleed, MRSA bacteremia, who presented to the ED on the evening of 10/29/2016, for Alcohol withdrawal symptoms and gross hematuria. He is currently being managed in general medical floor for the following issues: Acute blood loss anemia, secondary to gross hematuria: Patient's hematuria has been attributed to radiation cystitis. Patient's H&H today is 7.9/23.1. Iron supplement has been added. * Patient underwent fulguration and 1% formalin installation in the urinary bladder on 11/16/16. * According to urology services. Do NOT keep patient on straight cath protocol. For now voiding well. IF not please keep on king again (IF PVRV >300ml) * According to Dr Mccall, this can be done also as an outpatient basis. * Patient has blood group and has rare antibodies, thus cannot be given any blood from the blood bank. It has to be ordered from [facility] and takes few hours to reach, thus in case of worsening hematuria, [place] and blood bank at [place] should be contacted immediately as well as urology service. Urinary Tract Infection, treated Urine culture was positive for Escherichia coli and patient has finished a course of ciprofloxacin for 7 days, last dose was on 11/06/16, he has remained afebrile ever since. Alcohol withdrawal (resolved) Completed full course of Librium bhanu. Atrial fibrillation/hypertension/hyperlipidemia Patient has [id number] Score or 3 points, he has 3.2% risk of stroke per year and 4.6% risk of stroke/TIA/systemic embolism. Patient restarted on Eliquis as before hospitalization and was watched for any hematuria. He has not had had any hematuria so far, but he has required 9 (total) units of blood during this admission only. His Hb dropped by 1 unit on 11/21/16 although there is no evidence of bleed and the stool guiac is negative. CBC this AM is better at Hb> 8. History of chronic kidney disease Creatinine today is 2.3, which is better compared to 2.4 yesterday, which had been creeping up slowly. Nephro consultation was placed, appreciated. According to which, patient is stable enough to be discharged today, but would require a repeat BEP, vitamin B12, iron studies, CBC before he follows up, ideally on Monday. Patient has been explained about the need to follow-up with the blood tests and has been provided with a prescription. An attempt to call [facility] that possibly could go to his residence to get the blood sample did not get me any response today. Plan to call for blood test tomorrow as well. Diabetes mellitus: Fingerstick glucose in the past 24 hours is under control. Patient on consistent carbohydrate 3 diet. He gets Levemir 14 units daily and insulin sliding scale Continue with Accu-Cheks and diabetic management regimen but on discharge, he is being sent on his home meds, as his HbA1c was 5.5, which does not warrant any change. Needs outpatient follow up though. Discharge disposition Patient was made aware of his current condition, his need to follow-up including lab tests that were utterly important, and to follow-up with the specialists and his primary care physician. Patient understands his condition, plan of treatment, agrees to it, and is being discharged today to his home with health services. -Diabetic diet -Pain management is adequate with current plan (decreased per patient's request) -DVT prophylaxis is mechanical only because of ongoing blood loss -Full code Problem List: 1. Gross hematuria 2. History of prostate cancer 3. Radiation cystitis 4. CKD (chronic kidney disease) 5. Diabetes mellitus 6. Alcohol dependence 7. YVROSE (acute kidney injury) Pain Ratin Pain Location: - Pain Goal: Pain 4 or less Pain Plan: prn Tomorrow's Labs & Rationales: - NANCY ARCEO,NAKUL 11/22/16 1226: Attending MD Review Statement Attending Statement Attending MD Statement: examined this patient, discuss w/resident/PA/BIOMEDICAL FIELD SERVICE ENGINEER, agreed w/resident/PA/BIOMEDICAL FIELD SERVICE ENGINEER, reviewed EMR data (avail), discussed with nursing, discussed with case mgmt, amended to note Attending Assessment/Plan: Patient seen and examined. Resting comfortably and not in any acute distress. No issues overnight. There was concern over the weekend due to his rising creatinine level. This was discussed with the nephrology service. Case was discussed with Dr. Torres as well as Dr. Montejo. His repeat creatinine level shows a slight downward trend. Recommendations are for patient to be discharged home to follow-up with the nephrology service as an outpatient. I have encouraged patient to stay well-hydrated as he admits to mild decrease in oral intake over the weekend. He was restarted on anticoagulation following his urologic procedure last week. His hemoglobin level to trend downwards requiring a unit of blood yesterday. His hemoglobin level did improve also 0.5-8.9. His values 8.8 today. He has been voiding freely and his urine is entirely clear in color. There is no evidence of gross hematuria. He denies any blood per rectum. His blood glucose levels have been controlled. On his normal dose of insulin on a low-dose sliding scale. His last hemoglobin A1c last year was 5.6. Patient is medically stable to be discharged home. He is to follow-up with urology service next week and with his primary care provider. He is also to follow-up with the nephrology service as an outpatient.
--- NOTE | 2016-11-22 07:12 | PN- Urology ---
Subjective Subjective: No acute distress Pt's king is out and he is voiding spontaneously. Urine grossly clear. Back on eloquis Objective Vital Signs and I&Os Vital Signs Date Time Temp Pulse Resp B/P B/P Pulse O2 O2 Flow FiO2 Mean Ox Delivery Rate 11/22 0640 98.8 86 20 146/60 97 Room Air 11/22 0000 93 Room Air 11/21 2235 168/60 11/21 2223 97.8 71 20 180/100 93 Room Air 11/21 2212 160/68 11/21 1559 97.5 78 20 140/60 96 11/21 0917 61 134/78 11/21 0917 61 134/78 Intake & Output 11/22 0811/22 0000 11/21 1600 11/21 0811/21 0000 11/20 1600 Intake Total 434 724 7375 450 500 Output Total 494 244 0707 800 200 Balance 30 -51 345 -350 500 -200 Intake, Blood 350 Product Intake, IV 20 Intake, Oral 321 112 9829 450 500 Number 2 2 Bowel Movements Output, Stool 1 Output, Urine 867 661 3373 800 200 Laboratory Tests 11/22 11/21 11/21 0640 1650 1457 Hematology CBC w Diff Pending NO MAN DIFF REQ Cancelled WBC (4.8 - 10.8 /CUMM) Pending 6.3 Cancelled RBC (4.70 - 6.10 /CUMM) Pending 2.84 L Cancelled Hgb (14.0 - 18.0 G/DL) Pending 8.9 L Cancelled Hct (42 - 52 %) Pending 26.4 L Cancelled MCV (80.0 - 94.0 FL) Pending 92.8 Cancelled MCH (27.0 - 31.0 PG) Pending 31.4 H Cancelled RDW (11.5 - 14.5 %) Pending 17.1 H Cancelled Plt Count (130 - 400 /CUMM) Pending 199 Cancelled MPV (7.4 - 10.4 FL) Pending 7.6 Cancelled Gran % (42.2 - 75.2 %) 77.3 H Lymphocytes % (20.5 - 51.1 %) 7.9 L Monocytes % (1.7 - 9.3 %) 9.9 H Eosinophils % (0 - 5 %) 4.6 Basophils % (0.0 - 2.0 %) 0.3 Absolute Granulocytes (1.4 - 6.5 /CUMM) 4.9 Absolute Lymphocytes (1.2 - 3.4 /CUMM) 0.5 L Absolute Monocytes (0.10 - 0.60 /CUMM) 0.6 Absolute Eosinophils (0.0 - 0.7 /CUMM) 0.3 Absolute Basophils (0.0 - 0.2 /CUMM) 0 PUBS MCHC (33.0 - 37.0 G/DL) Pending 33.8 Cancelled Assessment/Plan Assessment/Plan Imp: 1. Radiation cystitis 2. s/p cysto, clot evacuation x 2 and instillation of intravesical formalin 3. hx of prostate ca Plan: 1. No further urologic intervention at this point 2. office f/u about 1 month after discharge
[2016-11-22 07:58] LABS: ABSOLUTE BASOPHIL COUNT 0 /CUMM (0.0-0.2); ABSOLUTE EOSINOPHIL COUNT 0.4 /CUMM (0.0-0.7); ABSOLUTE GRANULOCYTE CT 4.6 /CUMM (1.4-6.5); ABSOLUTE LYMPH COUNT 0.5 /CUMM (1.2-3.4); ABSOLUTE MONOCYTE COUNT 0.5 /CUMM (0.10-0.60); BASOPHIL % 0.1 % (0.0-2.0); EOSINOPHIL % 5.8 % (0-5); GRANULOCYTE % 77.1 % (42.2-75.2); HEMATOCRIT 26.1 % (42-52); MEAN CORPUSCULAR HGB 31.5 PG (27.0-31.0); MEAN CORPUSCULAR HGB CONC 33.9 G/DL (33.0-37.0); MEAN CORPUSCULAR VOLUME 93.2 FL (80.0-94.0); MEAN PLATELET VOLUME 7.8 FL (7.4-10.4); PLATELET COUNT 195 /CUMM (130-400); RBC DISTRIBUTION WIDTH 16.8 % (11.5-14.5)
[2016-11-22] MEDS ORDERED: ELIQUIS5 M1 PO (11:36)
--- NOTE | 2016-11-22 11:40 | PN- Nephrology ---
Assessment/Plan Assessment: Stage IV CKD - s/p renal biopsy with cryo GN - contributing factors of DM, HTN, and PVD likely playing role in his baseline proteinuric CKD. Had gross hematuria and is s/p interferon treatment for Hep C - proteinuria is longstanding - doubt RBC's during this admission represent recurrence of GN. YVROSE - SCr has started to improve. Hemodynamic in the setting of relative hypotension on 11/19 vs urinary obstruction (patient smelled like urine) now that king is out. Should rule out obstructive with PVR. Anemia - Hg 8.8. Should be monitored as outpatient along with iron stores, Vit B12, and folate - may need HUGO in the future. Suggestion: -Would check bladder scan for PVR -Pt should f/u in the office for his CKD with labwork including BMP and CBC, iron stores, Vit B12, and folate prior to visit Please call [phone] with ?'s Subjective Subjective: SCr slowly increased from 2.0->2.4 following king removal No recent imaging; no nephrotoxic meds; BP down to 100/60 on 11/19 Pt without urinary complaints today - no hematuria SCr 2.3 today Hg 8.8 Objective Vital Signs and I&Os Vital Signs Date Time Temp Pulse Resp B/P B/P Pulse O2 O2 Flow FiO2 Mean Ox Delivery Rate 11/22 1115 84 150/80 11/22 1114 84 150/80 11/22 0640 98.8 86 20 146/60 97 Room Air 11/22 0000 93 Room Air 11/21 2235 168/60 11/21 2223 97.8 71 20 180/100 93 Room Air 11/21 2212 160/68 11/21 1559 97.5 78 20 140/60 96 Intake & Output 11/22 1600 11/22 0400 11/21 1600 11/21 0400 11/20 1600 11/20 0400 Intake Total 953 503 4200 500 240 Output Total 216 334 7377 800 1450 700 Balance -420 -51 795 -300 -1210 -700 Intake, Blood 350 Product Intake, IV 20 0 Intake, Oral 079 225 7405 500 240 Number 1 2 2 1 Bowel Movements Output, Stool 1 Output, Urine 300 345 3374 800 1450 700 Physical Exam: Gen - malodorous HEENT - supple CV - RRR Chest - clear lungs Abd - soft, nontender Ext - no edema, s/p L BKA Neuro - AOX3, grossly nonfocal Current Medications: Current Medications Sig/Avery Start time Last Medication Dose Route Stop Time Status Admin Albuterol Sulfate 2 PUF Q6 11/16 1800 AC 11/19 INH 1721 Apixaban 5 MG BID 11/19 1000 AC 11/22 PO 1115 Atorvastatin Calcium 20 MG DAILY 11/17 1000 AC 11/22 PO 1116 Bisacodyl 10 MG DAILY PRN 11/17 0830 AC LA Budesonide/ 2 PUF BID 11/16 2200 AC 11/22 Formoterol Fumarate INH 1116 Duloxetine HCl 60 MG DAILY 11/17 1000 AC 11/22 PO 1115 Ferrous Sulfate 325 MG DAILY 11/18 1000 AC 11/22 PO 1115 Folic Acid 1 MG DAILY 11/17 1000 AC 11/22 PO 1115 Gabapentin 600 MG TID 11/16 2200 AC 11/22 PO 1115 Insulin Aspart 0 TIDAC 11/17 0800 AC 11/21 SC 1658 Insulin Aspart 0 AT BEDTIME 11/16 2200 AC SC Insulin Detemir 14 UNITS DAILY 11/17 1000 AC 11/22 SC 1114 Metoprolol Tartrate 6.25 MG BID 11/16 2200 AC 11/22 PO 1114 Morphine Sulfate 15 MG Q12 11/16 2200 AC 11/22 PO 1116 Multivitamins 1 TAB DAILY 11/17 1000 AC 11/22 PO 1114 Nicotine 7 MG DAILY 11/17 1000 AC 11/22 TOP 1115 Oxycodone HCl 15 MG Q4P PRN 11/16 2145 AC 11/22 PO 0824 Polyethylene Glycol 17 GM DAILY 11/17 1000 AC 11/19 PO 1037 Senna/Docusate Sodium 1 TAB BID PRN 11/16 1700 AC PO Tamsulosin HCl 0.4 MG DAILY 11/17 1000 AC 11/22 PO 1115 Results Pertinent Lab Results: Laboratory Tests 11/22 11/22 0921 0640 Chemistry Sodium (137 - 145 mmol/L) 139 Potassium (3.5 - 5.1 mmol/L) 3.8 Chloride (98 - 107 mmol/L) 102 Carbon Dioxide (22 - 30 mmol/L) 27 Anion Gap (5 - 16) 10 BUN (9 - 20 mg/dL) 56 H Creatinine (0.7 - 1.2 mg/dL) 2.3 H Estimated GFR (>60 ml/min) 29 L BUN/Creatinine Ratio (7 - 25 %) 24.3 Hematology CBC w Diff NO MAN DIFF REQ WBC (4.8 - 10.8 /CUMM) 6.0 RBC (4.70 - 6.10 /CUMM) 2.80 L Hgb (14.0 - 18.0 G/DL) 8.8 L Hct (42 - 52 %) 26.1 L MCV (80.0 - 94.0 FL) 93.2 MCH (27.0 - 31.0 PG) 31.5 H RDW (11.5 - 14.5 %) 16.8 H Plt Count (130 - 400 /CUMM) 195 MPV (7.4 - 10.4 FL) 7.8 Gran % (42.2 - 75.2 %) 77.1 H Lymphocytes % (20.5 - 51.1 %) 7.9 L Monocytes % (1.7 - 9.3 %) 9.1 Eosinophils % (0 - 5 %) 5.8 H Basophils % (0.0 - 2.0 %) 0.1 Absolute Granulocytes (1.4 - 6.5 /CUMM) 4.6 Absolute Lymphocytes (1.2 - 3.4 /CUMM) 0.5 L Absolute Monocytes (0.10 - 0.60 /CUMM) 0.5 Absolute Eosinophils (0.0 - 0.7 /CUMM) 0.4 Absolute Basophils (0.0 - 0.2 /CUMM) 0 PUBS MCHC (33.0 - 37.0 G/DL) 33.9 11/21 11/21 1650 1457 Hematology CBC w Diff NO MAN DIFF REQ Cancelled WBC (4.8 - 10.8 /CUMM) 6.3 Cancelled RBC (4.70 - 6.10 /CUMM) 2.84 L Cancelled Hgb (14.0 - 18.0 G/DL) 8.9 L Cancelled Hct (42 - 52 %) 26.4 L Cancelled MCV (80.0 - 94.0 FL) 92.8 Cancelled MCH (27.0 - 31.0 PG) 31.4 H Cancelled RDW (11.5 - 14.5 %) 17.1 H Cancelled Plt Count (130 - 400 /CUMM) 199 Cancelled MPV (7.4 - 10.4 FL) 7.6 Cancelled Gran % (42.2 - 75.2 %) 77.3 H Lymphocytes % (20.5 - 51.1 %) 7.9 L Monocytes % (1.7 - 9.3 %) 9.9 H Eosinophils % (0 - 5 %) 4.6 Basophils % (0.0 - 2.0 %) 0.3 Absolute Granulocytes (1.4 - 6.5 /CUMM) 4.9 Absolute Lymphocytes (1.2 - 3.4 /CUMM) 0.5 L Absolute Monocytes (0.10 - 0.60 /CUMM) 0.6 Absolute Eosinophils (0.0 - 0.7 /CUMM) 0.3 Absolute Basophils (0.0 - 0.2 /CUMM) 0 PUBS MCHC (33.0 - 37.0 G/DL) 33.8 Cancelled 11/21 11/20 0615 1115 Chemistry Sodium (137 - 145 mmol/L) 138 Potassium (3.5 - 5.1 mmol/L) 4.2 Chloride (98 - 107 mmol/L) 105 Carbon Dioxide (22 - 30 mmol/L) 24 Anion Gap (5 - 16) 9 BUN (9 - 20 mg/dL) 58 H Creatinine (0.7 - 1.2 mg/dL) 2.4 H Estimated GFR (>60 ml/min) 27 L BUN/Creatinine Ratio (7 - 25 %) 24.2 Hematology CBC w Diff NO MAN DIFF REQ NO MAN DIFF REQ WBC (4.8 - 10.8 /CUMM) 5.6 5.2 RBC (4.70 - 6.10 /CUMM) 2.42 L 2.45 L Hgb (14.0 - 18.0 G/DL) 7.5 L 7.5 L Hct (42 - 52 %) 22.6 L 22.5 L MCV (80.0 - 94.0 FL) 93.3 91.9 MCH (27.0 - 31.0 PG) 31.0 30.6 RDW (11.5 - 14.5 %) 17.3 H 17.1 H Plt Count (130 - 400 /CUMM) 204 185 MPV (7.4 - 10.4 FL) 7.7 7.5 Gran % (42.2 - 75.2 %) 74.8 73.9 Lymphocytes % (20.5 - 51.1 %) 9.2 L 8.7 L Monocytes % (1.7 - 9.3 %) 9.6 H 11.2 H Eosinophils % (0 - 5 %) 6.0 H 5.7 H Basophils % (0.0 - 2.0 %) 0.4 0.5 Absolute Granulocytes (1.4 - 6.5 /CUMM) 4.2 3.8 Absolute Lymphocytes (1.2 - 3.4 /CUMM) 0.5 L 0.4 L Absolute Monocytes (0.10 - 0.60 /CUMM) 0.5 0.6 Absolute Eosinophils (0.0 - 0.7 /CUMM) 0.3 0.3 Absolute Basophils (0.0 - 0.2 /CUMM) 0 0 PUBS MCHC (33.0 - 37.0 G/DL) 33.2 33.3 11/20 1058 Chemistry Sodium (137 - 145 mmol/L) 138 Potassium (3.5 - 5.1 mmol/L) 4.3 Chloride (98 - 107 mmol/L) 103 Carbon Dioxide (22 - 30 mmol/L) 25 Anion Gap (5 - 16) 10 BUN (9 - 20 mg/dL) 55 H Creatinine (0.7 - 1.2 mg/dL) 2.3 H Estimated GFR (>60 ml/min) 29 L BUN/Creatinine Ratio (7 - 25 %) 23.9 Imaging/Other Studies: None recent
--- NOTE | 2016-11-22 13:45 | Discharge Summary ---
Visit Information Visit Dates Admission Date: 10/30/16 Discharge Date: 11/22/2016 Hospital Course Course Attending Physician: NAKUL CRUZ M.D Primary Care Physician: JUANA SIMONS MD Allergies: Coded Allergies: NO KNOWN ALLERGIES (06/07/16) Disposition Summary Disposition Discharge Disposition: home health services Discharge Instructions General Discharge Information Code Status: Full Code Medications at Discharge Discharge Medications: Stop taking the following medications: Morphine Sulfate (Ms Contin) 30 MG TABLET.ER ORAL 2 x Daily as needed as needed for Chronic Back Pain Continue taking these medications: Gabapentin (Gabapentin) 300 MG CAPSULE 2 Capsule ORAL THREE TIMES DAILY Qty = 180 Comments: Last Taken: 07/27/16 Time: 10 AM Tamsulosin HCl (Tamsulosin HCl) 0.4 MG CAP.ER.24H 1 Capsule ORAL DAILY Qty = 30 Comments: Last Taken: 07/27/16 Time: 10 AM Budesonide/Formoterol Fumarate (Symbicort 160-4.5 Mcg Inhaler) 10.2 GM HFA.AER.AD 2 Puff Inhale through mouth TWICE DAILY Qty = 10 Comments: Last Taken:07/27/16 Time: 10AM Atorvastatin Calcium (Atorvastatin Calcium) 20 MG TABLET 1 Tablet ORAL DAILY Qty = 30 Comments: Last Taken: 07/26/16 Time: 5PM Metoprolol Succ XL (Toprol XL) 25 MG TAB.ER.24H 1 Tablet ORAL DAILY Comments: Last Taken: 07/27/16 Time: 10 AM Aspirin (Ecotrin*) 81 MG TABLET.DR 1 Tablet ORAL DAILY Comments: Last Taken: 07/27/16 Time: 10AM Folic Acid (Folic Acid) 1 MG TABLET 1 Tablet ORAL DAILY Qty = 30 Comments: Last Taken: 07/27/16 Time: 10AM Duloxetine HCl (Duloxetine HCl) 60 MG CAPSULE.DR 1 Capsule ORAL Every Morning Qty = 90 Comments: Last Taken: 07/27/16 Time: 10AM Albuterol Sulfate (Ventolin Hfa) 90 MCG HFA.AER.AD 2 Puff Inhale through mouth EVERY 4-6 HOURS NEEDED as needed for COPD Qty = 18 Comments: NOT GIVEN WHILE IN HOSPITAL Insulin Detemir (Levemir) 100 UNIT/ML VIAL 14 Units Inject into fatty tissue DAILY Comments: Last Taken: 07/27/16 Time: 10AM Oxycodone HCl (Oxycodone HCl) 15 MG TABLET 1 Tablet ORAL Every 4 hours as needed for Chronic Back Pain Apixaban (Eliquis) 5 MG TABLET 1 Tablet ORAL TWICE DAILY Start taking the following new medications: Ferrous Sulfate (Ferrous Sulfate) 325 MG (65 MG IRON) TABLET.DR 325 Milligram ORAL DAILY as needed for SUPPLEMENT Qty = 30 No Refills Morphine Sulfate (Ms Contin) 100 MG TABLET.ER 15 Milligram ORAL EVERY 12 HOURS Qty = 30 No Refills Polyethylene Glycol 3350 (Miralax) 17 GRAM/DOSE POWDER 17 Gram ORAL DAILY as needed for CONSTIPATION Qty = 30 No Refills Sennosides/Docusate Sodium (Senna Plus Tablet) 8.6 MG-50 MG TABLET 1 Tablet ORAL TWICE DAILY as needed for CONSTIPATION Qty = 45 No Refills Multivitamin (One Daily Multivitamin) 1 EACH TABLET 1 Tablet ORAL DAILY Qty = 30 No Refills
[2016-11-22 14:18] VITALS: BP 160/86
[2016-11-22] MEDS ORDERED: FERROUS SULFAT325 M2 PO (14:23)
[2016-11-22] MEDS ORDERED: ONE DAILY MULT1 EAC2 PO (14:24)
[2016-11-22] MEDS ORDERED: MS CONTIN100 MG PO (14:24)
[2016-11-22] MEDS ORDERED: MIRALAX119 GM PO (14:25)
[2016-11-22] MEDS ORDERED: SENNA PLUS TAB1 EACH PO (14:25)
== END 2016-11-22 16:30 | disposition home health service (06) | DRG 662 ==
LOC: ERH 19:15 → 1NO 10-30 12:39 → ERHI 10-30 12:39 → CRI 10-30 12:39 → 2NB 10-30 12:39 → ENRESERV 10-30 13:56 → 2NB 10-30 15:57 → CRI 11-01 07:47 → 1NO 11-07 17:47 → 2NA 11-10 14:51 → ENPENDDIS 11-22 13:29 → 2NA 11-22 16:30
PROVIDERS: Emergency Medicine; Internal Medicine; Preventive Medicine Public Health & General Preventive Medicine; Radiology Diagnostic Radiology; Student in an Organized Health Care Education/Training Program; ADMIT Internal Medicine
PROC: B518ZZA Fluoroscopy of Superior Vena Cava, Guidance (ICD-10-PCS; 2016-10-31)
PROC: 02HV33Z Insertion of Infusion Device into Superior Vena Cava, Percutaneous Approach (ICD-10-PCS; 2016-10-31)
PROC: 0TCB8ZZ Extirpation of Matter from Bladder, Via Natural or Artificial Opening Endoscopic (ICD-10-PCS; principal; 2016-11-01)
PROC: 0W3R8ZZ Control Bleeding in Genitourinary Tract, Via Natural or Artificial Opening Endoscopic (ICD-10-PCS; principal; 2016-11-01)
PROC: 30233N1 Transfusion of Nonautologous Red Blood Cells into Peripheral Vein, Percutaneous Approach (ICD-10-PCS; 2016-11-01)
PROC: 0W3R8ZZ Control Bleeding in Genitourinary Tract, Via Natural or Artificial Opening Endoscopic (ICD-10-PCS; 2016-11-16)
PROC: 0TCB8ZZ Extirpation of Matter from Bladder, Via Natural or Artificial Opening Endoscopic (ICD-10-PCS; 2016-11-16)
PROC: 3E0K7GC Introduction of Other Therapeutic Substance into Genitourinary Tract, Via Natural or Artificial Opening (ICD-10-PCS; 2016-11-16)
DX: N30.41 Irradiation cystitis with hematuria (principal); N17.0 Acute kidney failure with tubular necrosis; I47.2 Ventricular tachycardia; E87.2 Acidosis; D62 Acute posthemorrhagic anemia; I13.0 Hypertensive heart and chronic kidney disease with heart failure and stage 1 through stage 4 chronic kidney disease, or unspecified chronic kidney disease; I50.9 Heart failure, unspecified; N18.3 Chronic kidney disease, stage 3 (moderate); F10.239 Alcohol dependence with withdrawal, unspecified; N32.89 Other specified disorders of bladder; Y84.2 Radiological procedure and radiotherapy as the cause of abnormal reaction of the patient, or of later complication, without mention of misadventure at the time of the procedure; Z89.512 Acquired absence of left leg below knee; B18.2 Chronic viral hepatitis C; J44.9 Chronic obstructive pulmonary disease, unspecified; K21.9 Gastro-esophageal reflux disease without esophagitis; I48.0 Paroxysmal atrial fibrillation; Z85.46 Personal history of malignant neoplasm of prostate; Z85.038 Personal history of other malignant neoplasm of large intestine; F17.200 Nicotine dependence, unspecified, uncomplicated; E11.22 Type 2 diabetes mellitus with diabetic chronic kidney disease; N39.0 Urinary tract infection, site not specified; E66.9 Obesity, unspecified; Z68.29 Body mass index [BMI] 29.0-29.9, adult; G89.4 Chronic pain syndrome; B96.20 Unspecified Escherichia coli [E. coli] as the cause of diseases classified elsewhere
CPT/HCPCS: 1NP; 2NAP; 2NBP; 84133; 84300; CCU; 36415; 74000; 74176; 76775; 77001; 80307; 81001; 82436; 82570; 86902; 86920; 86922; 87086; 93005; 93010; 93306; 94799; 96372; 97110-GO; 97116-GO; 97161-GP; 97530-GO; 97535-GO; G0480; J0131; J0690; J0696; J1642; J1644; J1815; J1940; J2270; J2310; J2997; J3490; J7042; J7060; P9016; Q9967

== ENCOUNTER 2016-11-28 22:34 | Observation (INO) | payer OTHER, MEDICARE ==
[~2016-11-28] VITALS: Ht 180.3 cm; Wt 95.3 kg
[~2016-11-28 22:34] MED LIST changes: +FERROUS SULFAT325 M2 PO; +MS CONTIN100 MG PO; +MS CONTIN30 M1 PO; +NORVASC5 M1 PO; +ONE DAILY MULT1 EAC2 PO
--- NOTE | 2016-11-28 22:46 | NUR ---
PT BIBA FROM HOME FOR WEAKNESS, PAIN WITH URINATION AND INCREASE FREQUENCY, PT STATES HE WAS ADMITTED FOR ANEMIA, AND HAD HIS BLADDER CAUTERIZED AND CHEMICALLY SHRUNK. PT HAS A HX OF PROSTATE CA. PT STATES HE HAS BEEN WEAK STARTING YESTERDAY. DENIES FEVERS.
--- NOTE | 2016-11-28 22:49 | ED GENERAL ADULT ---
History of Present Illness General Chief Complaint: General Adult Stated Complaint: BIBA WEAKNESS Source: patient, old records, EMS Exam Limitations: no limitations Vital Signs & Intake/Output Vital Signs & Intake/Output Vital Signs Date Time Temp Pulse Resp B/P B/P Pulse O2 O2 Flow FiO2 Mean Ox Delivery Rate 11/29 0647 99.8 65 18 182/104 98 Room Air / 0226 98.8 87 18 202/110 06/06 0149 98.8 87 18 202/110 97 Room Air 11/28 2300 96 Room Air Room Air 11/28 2239 98.7 81 18 168/90 98 ED Intake and Output 11/29 0000 11/28 1200 Intake Total 0 Output Total Balance 0 Intake, Oral 0 Patient 210 lb Weight Allergies Coded Allergies: NO KNOWN ALLERGIES (06/07/16) Reconcile Medications Albuterol Sulfate (Ventolin Hfa) 90 MCG HFA.AER.AD 2 PUF INH Q4-6 PRN PRN COPD (Reported) Apixaban (Eliquis) 5 MG TABLET 1 TAB PO BID AFIB (Reported) Aspirin (Ecotrin*) 81 MG TABLET.DR 1 TAB PO DAILY HEART/BLOOD (Reported) Atorvastatin Calcium 20 MG TABLET 1 TAB PO DAILY CHOLESTEROL (Reported) Budesonide/Formoterol Fumarate (Symbicort 160-4.5 Mcg Inhaler) 10.2 GM HFA.AER.AD 2 PUF INH BID RESPIRATORY (Reported) Duloxetine HCl 60 MG CAPSULE.DR 1 CAP PO QAM depression (Reported) Ferrous Sulfate 325 MG (65 MG IRON) TABLET. 325 MG PO DAILY PRN SUPPLEMENT Folic Acid 1 MG TABLET 1 TAB PO DAILY OTHER Gabapentin 300 MG CAPSULE 2 CAP PO TID NERVE PAIN (Reported) Hydralazine HCl 25 MG TABLET 1 TAB PO BID HTN (Reported) Insulin Detemir (Levemir) 100 UNIT/ML VIAL 14 UNITS SC DAILY DM (Reported) Metoprolol Succ XL (Toprol XL) 25 MG TAB.ER.24H 1 TAB PO DAILY BP (Reported) Morphine Sulfate (Ms Contin) 100 MG TABLET.ER 15 MG PO Q12 PAIN Multivitamin (One Daily Multivitamin) 1 EACH TABLET 1 TAB PO DAILY SUPPLEMENT Oxycodone HCl 15 MG TABLET 1 TAB PO Q4 PRN Chronic Back Pain (Reported) Polyethylene Glycol 3350 (Miralax) 17 GRAM/DOSE POWDER 17 GM PO DAILY PRN CONSTIPATION Sennosides/Docusate Sodium (Senna Plus Tablet) 8.6 MG-50 MG TABLET 1 TAB PO BID PRN CONSTIPATION Tamsulosin HCl 0.4 MG CAP.ER.24H 1 CAP PO DAILY PROSTATE (Reported) Trazodone HCl 150 MG TABLET 1 TAB PO QPM FOR SLEEP/ SEDATION (Reported) Triage Note: PT BIBA FROM HOME FOR WEAKNESS, PAIN WITH URINATION AND INCREASE FREQUENCY, PT STATES HE WAS ADMITTED FOR ANEMIA, AND HAD HIS BLADDER CAUTERIZED AND CHEMICALLY SHRUNK. PT HAS A HX OF PROSTATE CA. PT STATES HE HAS BEEN WEAK STARTING YESTERDAY. DENIES FEVERS. Triage Nurses Notes Reviewed? yes HPI: Patient brought in by ambulance for increasing weakness. Patient lives at home alone. Patient was unable to even get out of that arm chair this evening. Patient was recently admitted for anemia. Patient was having hematuria. Patient has history of prostate cancer. Patient has not noticed any blood in his urine tonight however he says that he is having dysuria and urinary frequency. There are no fevers or chills. There is no chest pain. Occasional shortness of breath. No orthopnea. ([place] ARCEO,WILBERT Gao) Past History Travel History Traveled to [place] past 21 day No Medical History Any Pertinent Medical History? see below for history Neurological: delerium tremens, seizure Cardiovascular: AFIB, CHF, hypertension, mitral regurgitation, Staph aureus endocarditis Respiratory: COPD Gastrointestinal: GERD, Diarrhea, nausea Hepatic: hepatitis C Renal: chronic kidney disease Musculoskeletal: degen joint disease, CHRONIC BACK PAIN R FOOT NONHEALING WOUND Psychiatric: alcohol dependence, anxiety Endocrine: diabetes Blood Disorders: anemia, Waldenstrohm's macroglobulinemia Cancer(s): colon/rectal cancer (operated), prostate cancer (treated), WALDENSTROM LYMPHOMA HR INTERNSHIP/Reproductive: NONE History of MRSA: Yes History of VRE: No History of CDIFF: No Surgical History Surgical History: colon resection, MITRAL VALVE REPAIR left ankle surgery/ arthrodesis Psychosocial History Who do you live with Brother Services at Home None What is your primary language Togolese Tobacco Use: Quit >30 days ago ETOH Use: alcoholic Illicit Drug Use: denies illicit drug use Family History Family History, If Any: FATHER, , Age 87; Cause: Prostate CA. FH: diabetes mellitus FH: stroke FHx: prostate cancer PATERNAL GRANDMOTHER, ; Cause: Colon cancer. MOTHER, , Age 87; Cause: Old age. Hx Contributory? No ([place] ARCEO,WILBERT Gao) Review of Systems Review of Systems Constitutional: Reports: see HPI, weakness. EENTM: Reports: no symptoms. Respiratory: Reports: no symptoms. Cardiovascular: Reports: no symptoms. GI: Reports: no symptoms. Genitourinary: Reports: no symptoms. Musculoskeletal: Reports: no symptoms. Skin: Reports: no symptoms. Neurological/Psychological: Reports: no symptoms. Hematologic/Endocrine: Reports: no symptoms. Immunologic/Allergic: Reports: no symptoms. All Other Systems: Reviewed and Negative ([place] ARCEO,WILBERT Gao) Physical Exam Physical Exam General Appearance: well developed/nourished, alert, awake, anxious, moderate distress Head: atraumatic, normal appearance Eyes: Bilateral: PERRL, EOMI, pale conjunctivae. Ears, Nose, Throat: normal pharynx, normal ENT inspection, hearing grossly normal Neck: normal inspection Respiratory: normal breath sounds, chest non-tender, no respiratory distress, lungs clear Cardiovascular: regular rate/rhythm, normal peripheral pulses Gastrointestinal: normal bowel sounds, soft, non-tender, no organomegaly Back: normal inspection, normal range of motion Extremities: normal inspection, normal capillary refill, normal range of motion, no edema Neurologic/Psych: no motor/sensory deficits, awake, alert, oriented x 3, normal mood/affect Skin: intact, normal color, warm/dry Lymphatic: no anterior cervical billie Core Measures ACS in differential dx? No CVA/TIA Diagnosis: No Severe Sepsis Present: No Septic Shock Present: No ([place] ARCEO,WILBERT Gao) Progress Differential Diagnoses I considered the following diagnoses in my evaluation of the patient: [ANEMIA, UTI, ELECTROLYTE ABNORMALITY] Plan of Care: Orders Procedure Date/time Status Regular Diet 11/29 L Active Saline Lock 11/29 075 Active Misc Message 11/29 0754 Active ED Holding Orders 11/29 0754 Active Vital Signs 11/29 075 Active Activity/Ambulation 11/29 0754 Active Code Status 11/29 0754 Active Patient Data 11/[address] in observation 11/29 0734 Active Add-on Test (ER Only) 11/29 0720 Active BLOOD CULTURE 11/29 0706 Active PT Evaluate & Treat 11/29 0153 Active CASE MANAGEMENT CONSULT 11/29 0153 Active CULTURE,URINE 11/29 114 Active Add-on Test (ER Only) 11/29 0108 Active ETHANOL 11/28 235 Complete URINALYSIS 11/29 2247 Complete TROPONIN LEVEL 11/29 2247 Complete COMPREHENSIVE METABOLIC PANEL 11/29 2247 Complete CBC WITHOUT DIFFERENTIAL 11/29 2247 Complete TYPE & SCREEN (NOT X-MATCH) 11/29 2247 Active Intake & Output 11/28 2238 Active EKG 11/28 2234 Active Current Medications Sig/Avery Start time Last Medication Dose Stop Time Status Admin Ceftriaxone Sodium 1,000 MG ONCE ONE 11/29 729 CAN (Rocephin) 11/29 730 Laboratory Tests 11/29/16114: Urinalysis LIGHT H, Urine Color YEL, Urine Clarity CLDY H, Urine pH 6.5, Ur Specific [place] 1.020, Urine Protein >=300 H, Urine Ketones NEG, Urine Nitrite NEG, Urine Bilirubin NEG, Urine Urobilinogen 0.2, Ur Leukocyte Esterase LARGE H , Ur Microscopic SEDIMENT EXAMINED, Urine RBC 5-10 H, Urine WBC > 75 H, Ur Epithelial Cells MOD H, Urine Bacteria MOD H, Urine Hemoglobin MOD H, Urine Glucose 100 H 11/28/162353: Anion Gap 11, Estimated GFR 32 L, BUN/Creatinine Ratio 16.2, Glucose 140 H, Calcium 8.7, Total Bilirubin 0.5, AST 25, ALT 38, Alkaline Phosphatase 104, Troponin I 0.02, Total Protein 6.1 L, Albumin 3.4 L, Globulin 2.7, Albumin/ Globulin Ratio 1.3, CBC w Diff NO MAN DIFF REQ, RBC 3.24 L, MCV 90.6, MCH 30.5, RDW 16.6 H, MPV 7.7, Gran % 90.5 H, Lymphocytes % 3.7 L, Monocytes % 3.4, Eosinophils % 2.3, Basophils % 0.1, Absolute Granulocytes 9.2 H, Absolute Lymphocytes 0.4 L, Absolute Monocytes 0.3, Absolute Eosinophils 0.2, Absolute Basophils 0, PUBS MCHC 33.7, Serum Alcohol < 10.0 Microbiology 11/29 705 BLOOD: Blood Culture - ORD 11/29 705 BLOOD: Blood Culture - ORD 11/29 114 URINE ROUT: Urine Culture - RECD Initial ED EKG: AFIB, nonspecific ST T wave chg Prior EKG: unchanged Hand-Off Endorsed To: BERTHA CRUZ MD Endorsed Time: 0700 Pending: consult (PT, CASE MANAGEMENT) (WILBERT LEGER MD) Departure Departure Disposition: STILL A PATIENT Condition: Stable Clinical Impression Primary Impression: Weakness Referrals: JUANA SIMONS MD (PCP/Family) Departure Forms: Customer Survey General Discharge Information (WILBERT LEGER MD) Observation Note Spoke With: JESSICA WHITAKER MD Physician Advisor Notified: CHRISSY ARCEO,EVETTE Gao Place Patient In: Non-ED OBS Care Area Rationale for Observation: My rational for observation is as follows [iv abx, f/u cultures, blood pressure control, case management for placement]. (BERTHA CRUZ MD) Critical Care Note Critical Care Note Critical Care Time: non-applicable (WILBERT LEGER MD)
--- NOTE | 2016-11-28 23:59 | NUR ---
LABS DRAWN AND SENT NOW.
[2016-11-29 00:04] LABS: ABSOLUTE BASOPHIL COUNT 0 /CUMM (0.0-0.2); ABSOLUTE EOSINOPHIL COUNT 0.2 /CUMM (0.0-0.7); ABSOLUTE GRANULOCYTE CT 9.2 /CUMM (1.4-6.5); ABSOLUTE LYMPH COUNT 0.4 /CUMM (1.2-3.4); ABSOLUTE MONOCYTE COUNT 0.3 /CUMM (0.10-0.60); BASOPHIL % 0.1 % (0.0-2.0); EOSINOPHIL % 2.3 % (0-5); HEMATOCRIT 29.3 % (42-52); MEAN CORPUSCULAR HGB 30.5 PG (27.0-31.0); MEAN CORPUSCULAR HGB CONC 33.7 G/DL (33.0-37.0); MEAN CORPUSCULAR VOLUME 90.6 FL (80.0-94.0); MEAN PLATELET VOLUME 7.7 FL (7.4-10.4); PLATELET COUNT 194 /CUMM (130-400); RBC DISTRIBUTION WIDTH 16.6 % (11.5-14.5); RED BLOOD CELL CT 3.24 /CUMM (4.70-6.10)
[2016-11-29 00:08] LABS: GRANULOCYTE % 90.5 % (42.2-75.2); WHITE BLOOD CELL COUNT 10.2 /CUMM (4.8-10.8)
[2016-11-29] MEDS ORDERED: HYDRALAZINE HCL25 M1 PO (00:12)
[2016-11-29] MEDS ORDERED: TRAZODONE HCL150 M1 PO (00:13)
--- NOTE | 2016-11-29 01:17 | NUR ---
VOIDED 200 CCS CLOUDY URINE TRIO OBTAINED AND SENT
--- NOTE | 2016-11-29 01:39 | NUR ---
PER NOT GOING TO TRANSFUSE PT, DEVANTE LOPES IN LAB PT HAS SINGIFICANT ANTIBODIES AWARE.
--- NOTE | 2016-11-29 05:05 | NUR ---
PT EASILY AGITATED WHEN NOT IMMEDIATELY RESPONDED TO, PT CALM WHEN RESPONDED TO GAUDENCIO. PT AWAITING PT EVAL IN AM.
--- NOTE | 2016-11-29 06:48 | NUR ---
PATIENT INCONTINENT. LISA CARE PROVIDED. GOWN AND BEDDING CHANGED. GIVEN URINAL AND CALL KING
--- NOTE | 2016-11-29 07:30 | NUR ---
COMPLETE BED CHANGE PT MISSED THE BEDPAN WHILE HAVING A LARGE BM
--- NOTE | 2016-11-29 07:40 | History & Physical ---
STEPH SIMMONS 11/29/16 0739: General Information and HPI MD Statement: I have seen and personally examined BRANDYN BORDEN and documented this H&P. The patient is a 66 year old M who presented with a patient stated chief complaint of [URINARY FREQUENCY, DIFFICULTY, GENERALIZED FATIGUE]. Source of Information: patient, old records Exam Limitations: no limitations History of Present Illness: is a 66 yo man with past medical history significant for hepatitis C virus in remission, Waldenstrm's macroglobulinemia, opiate dependence, diabetes , left leg below-knee amputation, alcohol overuse, alcohol withdrawal seizures, GI bleed, infective endocarditis, MRSA bacteremia, history of prostate cancer status post radiation therapy about 10 years ago, history of colon cancer status post surgical resection presented to emergency department with a chief complaint of urinary frequency, difficulty and generalized fatigue. Patient recently discharged from [facility] at 11/22/2016 after being treated for alcohol detox and hematuria and acute blood loss anemia status post 9 units packed RBCs transfusion. Patient discharged home with home health services, after his discharge he feels fine for a few days but then he started to complain of urinary symptoms in the form of frequent urinary frequency, sharp pressure pain in the groin area, burning sensation during urination, about 4 days ago he noticed dark urine with funny smelling which currently resolved but still he had a stabbing nature pain when he urinates in the groin region. He also feels constant pressure sensation in the groin area. He reports that yesterday he noticed that his breathing is labored, and he attributes it that's because he feels tired and he has urinary infection. He also reports feeling dizzy. Patient denies fever, chills, sweating, chest pain, shortness of breath, cough, sputum production, headache, vision changes, and there is no change in bowel habits. Of note: Patient's reported that after his discharge from the hospital he stopped at a wine shop and he purchased vodka and since his discharge he has been drinking 1-1/2 pint of vodka Daily, and now he feels shaky and he thinks that he is withdrawing again. Last drink was yesterday in the morning. During his recent hospitalization, he had hematuria with large bladder clots, he received formalin irrigation in the bladder to help arrest bleeding. He underwent cystoscopy, clot evacuation, fulguration of bleeding, cystograph and intravesically installation of 1% formalin on 11/16/2016. He was later continued on CBI. Patient's urine eventually cleared up. He didn't get a chance to follow-up with urologist after his discharge which was last Monday. Patient is following with a [facility] for his Waldenstrm's macroglobulinemia and for his anemia. Allergies/Medications Allergies: Coded Allergies: NO KNOWN ALLERGIES (06/07/16) Home Med list Albuterol Sulfate (Ventolin Hfa) 90 MCG HFA.AER.AD 2 PUF INH Q4-6 PRN PRN COPD (Reported) Apixaban (Eliquis) 5 MG TABLET 1 TAB PO BID AFIB (Reported) Aspirin (Ecotrin*) 81 MG TABLET.DR 1 TAB PO DAILY HEART/BLOOD (Reported) Atorvastatin Calcium 20 MG TABLET 1 TAB PO DAILY CHOLESTEROL (Reported) Budesonide/Formoterol Fumarate (Symbicort 160-4.5 Mcg Inhaler) 10.2 GM HFA.AER.AD 2 PUF INH BID RESPIRATORY (Reported) Duloxetine HCl 60 MG CAPSULE.DR 1 CAP PO QAM depression (Reported) Ferrous Sulfate 325 MG (65 MG IRON) TABLET.DR 325 MG PO DAILY PRN SUPPLEMENT Folic Acid 1 MG TABLET 1 TAB PO DAILY OTHER Gabapentin 300 MG CAPSULE 2 CAP PO TID NERVE PAIN (Reported) Hydralazine HCl 25 MG TABLET 1 TAB PO BID HTN (Reported) Insulin Detemir (Levemir) 100 UNIT/ML VIAL 14 UNITS SC DAILY DM (Reported) Metoprolol Succ XL (Toprol XL) 25 MG TAB.ER.24H 1 TAB PO DAILY BP (Reported) Morphine Sulfate (Ms Contin) 100 MG TABLET.ER 15 MG PO Q12 PAIN Multivitamin (One Daily Multivitamin) 1 EACH TABLET 1 TAB PO DAILY SUPPLEMENT Oxycodone HCl 15 MG TABLET 1 TAB PO Q4 PRN Chronic Back Pain (Reported) Polyethylene Glycol 3350 (Miralax) 17 GRAM/DOSE POWDER 17 GM PO DAILY PRN CONSTIPATION Sennosides/Docusate Sodium (Senna Plus Tablet) 8.6 MG-50 MG TABLET 1 TAB PO BID PRN CONSTIPATION Tamsulosin HCl 0.4 MG CAP.ER.24H 1 CAP PO DAILY PROSTATE (Reported) Trazodone HCl 150 MG TABLET 1 TAB PO QPM FOR SLEEP/ SEDATION (Reported) Past History Travel History Traveled to [place] past 21 day No Medical History Neurological: delerium tremens, seizure Cardiovascular: AFIB, CHF, hypertension, mitral regurgitation, Staph aureus endocarditis Respiratory: COPD Gastrointestinal: GERD, Diarrhea, nausea Hepatic: hepatitis C Renal: chronic kidney disease Musculoskeletal: degen joint disease, CHRONIC BACK PAIN R FOOT NONHEALING WOUND Psychiatric: alcohol dependence, anxiety Endocrine: diabetes Blood Disorders: anemia, Waldenstrohm's macroglobulinemia Cancer(s): colon/rectal cancer (operated), prostate cancer (treated), WALDENSTROM LYMPHOMA 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 FH: diabetes mellitus FH: stroke FHx: prostate cancer PATERNAL GRANDMOTHER, ; Cause: Colon cancer. MOTHER, , Age 87; Cause: Old age. Psychosocial History Who Do You Live With? self Services at Home: None Primary Language: Bulgarian Smoking Status: Current Everyday Smoker (restart smoking at 2000) ETOH Use: alcoholic Illicit Drug Use: denies illicit drug use Living Will? unknown Power of Engine Watchman/HCP? unknown Functional Ability ADLs Independent: dressing, eating, toileting, bathing. Ambulation: independent (Nadine boot left foot) IADLs Independent: shopping, housework, finances, food prep, telephone, transportation , medication admin. Review of Systems Review of Systems Constitutional: Reports: malaise. EENTM: Reports: no symptoms. Cardiovascular: Reports: no symptoms. Respiratory: Reports: short of breath. GI: Reports: no symptoms. Genitourinary: Reports: dysuria, frequency, pain, urgency. Musculoskeletal: Reports: back pain. Skin: Reports: no symptoms. Neurological/Psychological: Reports: no symptoms. Hematologic/Endocrine: Reports: no symptoms. All Other Systems: Reviewed and Negative Exam & Diagnostic Data Last 24 Hrs of Vital Signs/I&O Vital Signs Date Time Temp Pulse Resp B/P B/P Pulse O2 O2 Flow FiO2 Mean Ox Delivery Rate 11/29 0647 99.8 65 18 182/104 98 Room Air 06/06 0226 98.8 87 18 202/110 11/29 0149 98.8 87 18 202110 97 Room Air 11/28 2300 96 Room Air Room Air 11/28 2239 98.7 81 18 168/90 98 Intake & Output 11/29 1600 11/29 0800 06 0000 Intake Total 0 Output Total 200 Balance -200 0 Intake, Oral 0 Output, Urine 200 Patient 210 lb Weight Physical Exam General Appearance Alert, Oriented X3, Cooperative, No Acute Distress Skin No Rashes, No Breakdown, No Significant Lesion HEENT Atraumatic, PERRLA, EOMI, Mucous Membr. moist/pink Cardiovascular Regular Rate, Normal S1, Normal S2, No Murmurs Lungs Clear to Auscultation, Normal Air Movement Abdomen Normal Bowel Sounds, Soft, No Tenderness, Tenderness on the groin region Neurological Normal Gait, Normal Speech, Strength at 5/5 X4 Ext, Normal Tone, Sensation Intact Extremities No Edema, Normal Pulses Last 24 Hrs of Labs/Manny: Laboratory Tests 11/29/16 0115: Urinalysis LIGHT H, Urine Color YEL, Urine Clarity CLDY H, Urine pH 6.5, Ur Specific [place] 1.020, Urine Protein >=300 H, Urine Ketones NEG, Urine Nitrite NEG, Urine Bilirubin NEG, Urine Urobilinogen 0.2, Ur Leukocyte Esterase LARGE H , Ur Microscopic SEDIMENT EXAMINED, Urine RBC 5-10 H, Urine WBC > 75 H, Ur Epithelial Cells MOD H, Urine Bacteria MOD H, Urine Hemoglobin MOD H, Urine Glucose 100 H 11/28/16 2354: Anion Gap 11, Estimated GFR 32 L, BUN/Creatinine Ratio 16.2, Glucose 140 H, Calcium 8.7, Total Bilirubin 0.5, AST 25, ALT 38, Alkaline Phosphatase 104, Troponin I 0.02, Total Protein 6.1 L, Albumin 3.4 L, Globulin 2.7, Albumin/ Globulin Ratio 1.3, CBC w Diff NO MAN DIFF REQ, RBC 3.24 L, MCV 90.6, MCH 30.5, RDW 16.6 H, MPV 7.7, Gran % 90.5 H, Lymphocytes % 3.7 L, Monocytes % 3.4, Eosinophils % 2.3, Basophils % 0.1, Absolute Granulocytes 9.2 H, Absolute Lymphocytes 0.4 L, Absolute Monocytes 0.3, Absolute Eosinophils 0.2, Absolute Basophils 0, PUBS MCHC 33.7, Serum Alcohol < 10.0 Microbiology 11/29 901 URINE ROUT: Urine Culture - ORD 11/29 705 BLOOD: Blood Culture - ORD 11/29 705 BLOOD: Blood Culture - ORD 11/29 011 URINE ROUT: Urine Culture - RECD Diagnostic Data EKG Results A. fib, rate 67, left axis deviation, T-wave inversion in lead 3, ventricular premature complex Assessment/Plan Assessment: is a 66 yo man with past medical history significant for hepatitis C virus in remission, Waldenstrm's macroglobulinemia, opiate dependence, diabetes , left leg below-knee amputation, alcohol overuse, alcohol withdrawal seizures, GI bleed, infective endocarditis, MRSA bacteremia, history of prostate cancer status post radiation therapy about 10 years ago, history of colon cancer status post surgical resection presented to emergency department with a chief complaint of urinary frequency, difficulty and generalized fatigue. Placed under observation at general medicine floor for UTI ,anemia and uncontrolled blood pressure. Assessment: #UTI #Hypertensive urgency which could be secondary to missing his blood pressure medication yesterday #Chronic normocytic anemia #History of hematuria which could be secondary to radiation hemorrhagic cystitis #Chronic kidney disease stage III b #History of alcohol dependence and alcohol withdrawal #History of diabetes #Generalized malaise secondary to anemia and UTI Plan: -We'll place the patient at general medicine floor under observation -We'll start IV antibiotic with ciprofloxacin as he had urine culture last admission which grows Escherichia coli sensitive to Cipro -We'll follow-up the results of the urine culture and blood culture -CIWA protocol for alcohol withdrawal, Ativan per CIWA -Ativan 2 mg by mouth every 6 scheduled -Banana bag -We'll resume his home blood pressure medications hydralazine and metoprolol -We'll place a urology consult -We'll place cardiology consult for uncontrolled blood pressure and the need for anticoagulation and aspirin giving his anemia and hematuria (he reports that hematuria is resolved) -Assess kidney function at a.m. and discuss with attending the need for nephrology consult. -We will repeat CBC and PEB at a.m. -Given that he has hypertensive urgency, will check troponin and EKG to rule out ACS -Accu-Chek, and insulin sliding scale -pain management pathway Full code DVT prophylaxis Eliquis As Ranked By This Provider Problem List: 1. Alcohol dependence 2. Radiation cystitis 3. Weakness 4. YVROSE (acute kidney injury) 5. Chronic pain Core Measures/Miscellaneous Acute Coronary Syndrome ACS Diagnosis: No Cerebrovascular Accident CVA/TIA Diagnosis: No Congestive Heart Failure CHF Diagnosis: No Venous Thromboembolism VTE Risk Factors: Acute medical illness, Age > 40 [facility] prophylaxis d/t: No contraindications No VTE Pharm Prophylaxis d/t: No contraindications VTE Diagnosis: No VTE Type: NONE VTE Confirmed by (Test): NONE Severe Sepsis Severe Sepsis Present: No Septic Shock Septic Shock Present: No Miscellaneous Documentation Attending Case Discussed With: JESSICA WHITAKER MD Primary Care Physician: JUANA SIMONS MD Patient sees these Specialists - Level of Patient Care: General Medicine JESSICA WHITAKER MD 11/29/16 5175: Attending MD Review Statement Attending Statement Attending MD Statement: examined this patient, discuss w/resident/PA/SPRINKLER IRRIGATION EQUIPMENT MECHANIC, agreed w/resident/PA/S[employer]INKLER IRRIGATION EQUIPMENT MECHANIC, reviewed EMR data (avail) Attending Assessment/Plan: Patient brought in under observation for lethargy, weakness, fatigue, and UTI. Will obtain urology consult, antibiotics, monitor renal function
--- NOTE | 2016-11-29 07:47 | NUR ---
PT MEDICATED FOR PAIN (SEE MAR)
--- NOTE | 2016-11-29 08:40 | NUR ---
PT GIVEN ICE WATER
--- NOTE | 2016-11-29 09:24 | NUR ---
PT MEDICATED DIRECTED MVI, THIAMINE AND FOLIC ACID INFUSING DIRECTED
[2016-11-29 10:35] VITALS: BP 189/109
--- NOTE | 2016-11-29 10:36 | NUR ---
PT MEDICATED WITH AM MEDS (SEE MAR) NO WITHDRAWEL S/S NOTED
--- NOTE | 2016-11-29 10:53 | NUR ---
THERAPY IN ROOM FOR EVAL
--- NOTE | 2016-11-29 10:56 | NUR ---
PHYSICAL THERAPY: RECIEVED CONSULT ORDERS, REVIEWED CHART, SPOKE TO RN. Pt REFUSING P.T. EVAL IN THE E.D. STATING "I AM GETTING ADMITTED, CAN'T WE JUST DO IT THEN. I AM VERY TIRED." WITH EDUCATION, Pt CONTINUED TO ADAMENTLY REFUSE AND BECAME IRRITATED. P.T. TO F/U APPROPRIATE.
--- NOTE | 2016-11-29 11:15 | NUR ---
HOUSE STAFF PAGED TO LOOK AT EKG COMPLETED
--- NOTE | 2016-11-29 11:37 | NUR ---
DR. WHITAKER IN ROOM FOR RUBIN.
[2016-11-29 12:30] VITALS: BP 170/100
--- NOTE | 2016-11-29 12:44 | NUR ---
PT ATE 100% OF HIS LUNCH
--- NOTE | 2016-11-29 12:57 | NUR ---
PT SLEEPING ON AND OFF NO DISTRESS NOTED
--- NOTE | 2016-11-29 13:06 | NUR ---
Physical Therapy: Recieved consult orders, reviewed chart, spoke to RN and patient. Pt refusing P.T. evaluation at this time, does not have prosthetic which P.T. will require for eval and d/c planning tomorrow. F/U as appropriate.
[2016-11-29 15:08] VITALS: BP 190/100
--- NOTE | 2016-11-29 15:09 | NUR ---
PT STATES HE IS IN PAIN AND NEEDS HIS ATIVAN
[2016-11-29 16:10] VITALS: BP 182/108
--- NOTE | 2016-11-29 16:24 | NUR ---
STEPH ARCEO PAGED AT [phone] REGARDING PT'S BLOOD PRESSURE
--- NOTE | 2016-11-29 17:00 | NUR ---
STEPH ARCEO IS THE MOD AND NOTIFIED OF BP AND PLAN FOR ORDER FOR METOPROLOL
--- NOTE | 2016-11-29 17:33 | NUR ---
BP 140/98 AT THIS TIME. MEDICATED WITH TOPROL XL PER ORDER. PT DECLINING FOOD TRAY RIGHT NOW ASKING TO WAIT A LITTLE. CALL KING IN REACH. UNABLE TO VOID WITH ASSIST AT THIS TIME, URINAL IN REACH WHEN READY. WILL CONT TO MONITOR. BANANA BAG CONT TO INFUSE PER ORDER
--- NOTE | 2016-11-29 18:56 | NUR ---
11/29 CASE MGMT- MET WITH PT STATES HE HAS NO ONE TO BRING HIS PROTHETIC TO HIM THIS EVENING BUT WILL CALL SOMEONE TOMORROW MORNING TO GET IT SO HE CAN BE EVALUATED BY PHYSICAL THERAPY. CASE MGMT WILL CONTINUE TO FOLLOW. MIMR PENDING, COMMON FLOR STARTED AND W10 STARTED.
--- NOTE | 2016-11-29 21:30 | NUR ---
PT AWAKEN FOR VS, CIWA 7 AT THIS TIME, PT MEDICATED WITH ATIVAN PER EMAR. URINAL PROVIDED.
[2016-11-29 21:34] VITALS: BP 178/104
--- NOTE | 2016-11-29 22:14 | NUR ---
PT RESTING ON HOSPITAL BED, OFFERING NO NEEDS AT THIS TIME, MEDICATED PER EMAR. WATER PROVIDED.
[2016-11-30] VITALS (9 sets, daily range): BP systolic 120–186; BP diastolic 58–108
--- NOTE | 2016-11-30 06:24 | PN- Housestaff ---
See Addendum Subjective Follow-up For: UTI Back Pain Subjective: Mr Ling was seen and examined this morning. He is resting comfrotably in bed. Denies any acute issues overnight. Continues to endorse suprapubic pain. Pain is rated at 4/10 in severity. Also continues to be incontinent of urine. Pain is described as sharp. Pain is better than the last 24 hours. Tolerating PO intake well. Denies any fever, chills, nausea, vomiting. Patient also denies any hallucinations or diaphoresis. Review of Systems Constitutional: Reports: see HPI. Objective Last 24 Hrs of Vital Signs/I&O Vital Signs Date Time Temp Pulse Resp B/P B/P Pulse O2 O2 Flow FiO2 Mean Ox Delivery Rate 11/30 0736 189/95 / 0658 186/94 / 0515 78 20 154/103 06/ 2213 98.7 76 18 178/104 06/06 2134 98.7 76 18 178/104 06/06 2130 98.7 76 16 178/104 95 Room Air 06/06 2024 97.6 75 16 163/105 95 Room Air 06/06 1903 Room Air Room Air 06/06 1846 97.8 62 16 172/94 96 Room Air 06/06 1732 84 141/98 06/06 1732 97.0 84 16 140/98 94 Room Air 06/06 1610 97.6 81 16 182/108 06/06 1604 97.8 84 18 182/108 94 Room Air 06/06 1508 97.7 68 18 190/100 06/06 1255 98.6 80 18 170/100 97 Room Air 06/06 1230 98.6 80 18 170/100 06/06 1132 76 188/104 06/06 1035 97.5 76 18 189/109 06/06 1035 97.5 76 18 187/109 97 Room Air 06/06 1008 99.8 65 18 182/104 06/06 1008 99.8 65 18 182/104 Intake & Output 06/ 1600 06/07 0800 06/07 0000 Intake Total 500 Output Total 900 Balance -400 Intake, Oral 500 Output, Urine 900 Patient 95.254 kg Weight Physical Exam General Appearance: Alert, Oriented X3, Cooperative Skin: No Rashes Cardiovascular: Regular Rate, Normal S1, Normal S2 Lungs: Clear to Auscultation Abdomen: Normal Bowel Sounds, Soft, No Tenderness Neurological: Normal Speech, Strength at 5/5 X4 Ext Current Medications: Current Medications Sig/Avery Start time Last Medication Dose Route Stop Time Status Admin Albuterol Sulfate 2 PUF Q4-6 PRN PRN 11/29 0900 AC INH Apixaban 5 MG BID 11/29 1000 AC 11/29 PO 2213 Aspirin Buffered 81 MG DAILY 11/29 1000 DC 11/29 PO 1008 Atorvastatin Calcium 20 MG DAILY 11/29 1000 AC 11/29 PO 1008 Budesonide/ 2 PUF BID 11/29 1000 AC 11/29 Formoterol Fumarate INH 2213 Ceftriaxone Sodium 1,000 MG DAILY 11/30 1000 CAN IV Ciprofloxacin 400 MG Q12 11/29 2200 AC 11/29 Dextrose/Water 200 ML IV 2213 Cyanocobalamin/ 1 BAG ONCE ONE 11/29 0900 DC 11/29 Thiamine/Pyridoxine IV 11/29 1659 0923 Dextrose/Water 1,000 ML Duloxetine HCl 60 MG DAILY 11/29 1000 AC 11/29 PO 1008 Ferrous Sulfate 325 MG DAILY PRN 11/29 0900 AC PO Folic Acid 1 MG DAILY 11/29 1000 AC 11/29 PO 1008 Gabapentin 600 MG Q12 11/29 2200 AC 11/29 PO 2213 Gabapentin 0 .STK-MED ONE 11/293 DC PO Gabapentin 0 .STK-MED ONE 11/29 1018 DC PO Gabapentin 600 MG TID 11/29 1000 DC 11/29 PO 1015 Hydralazine HCl 25 MG BID 11/29 1000 AC 11/29 PO 2213 Insulin Aspart 0 TIDAC 11/29 1200 AC SC Insulin Detemir 14 UNITS DAILY 11/29 1000 AC 11/29 SC 1025 Lorazepam 0 .STK-MED ONE 11/30 0708 DC .ROUTE Lorazepam 0 .STK-MED ONE 11/30 0456 DC .ROUTE Lorazepam 0 .STK-MED ONE 11/30 0303 DC PO Lorazepam 0 .STK-MED ONE 11/29 2123 DC PO Lorazepam 0 .STK-MED ONE 11/29 1518 DC PO Lorazepam 0 .STK-MED ONE 11/29 0916 DC .ROUTE Lorazepam 0.5 MG ONCE ONE 11/29 0900 DC 11/29 IV 11/29 0901 0923 Lorazepam See Dose Q1P PRN 11/29 0900 AC 11/30 Insts (1) IV 0711 Lorazepam 2 MG Q6H 11/29 0900 AC 11/30 PO 0303 Metoprolol Succinate 25 MG DAILY 11/30 1000 AC 11/30 PO 0736 Metoprolol Succinate 25 MG ONCE ONE 11/29 1700 DC 11/29 PO 11/29 1701 1732 Morphine Sulfate 0 .STK-MED ONE 11/29 2123 DC PO Morphine Sulfate 15 MG Q12 11/29 1000 AC 11/29 PO 2213 Multivitamins 1 TAB DAILY 11/29 1000 AC 11/29 Therapeutic PO 1009 Oxycodone HCl 0 .STK-MED ONE 11/30 0708 DC PO Oxycodone HCl 15 MG Q4P PRN 11/29 0900 AC 11/30 PO 0710 Tamsulosin HCl 0.4 MG DAILY 11/29 1000 AC 11/29 PO 1008 Thiamine HCl 0 .STK-MED ONE 11/29 0917 DC .ROUTE Trazodone HCl 100 MG QPM 11/29 2200 AC 11/29 PO 2213 Trazodone HCl 0 .STK-MED ONE 11/293 DC PO Dose Instructions: (1)Lorazepam: See admin criteria Last 24 Hrs of Lab/Manny Results Last 24 Hrs of Labs/Mics: Laboratory Tests 11/30/16 0820: Sodium Pending, Potassium Pending, Chloride Pending, Carbon Dioxide Pending, Anion Gap Pending, BUN Pending, Creatinine Pending, BUN/Creatinine Ratio Pending , CBC w Diff Pending, WBC Pending, RBC Pending, Hgb Pending, Hct Pending, MCV Pending, MCH Pending, RDW Pending, Plt Count Pending, MPV Pending, PUBS MCHC Pending 11/29/16 1340: Anion Gap 8, Estimated GFR 34 L, BUN/Creatinine Ratio 16.5, Troponin I 0.04 11/29/16 1122: Sodium Cancelled, Potassium Cancelled, Chloride Cancelled, Carbon Dioxide Cancelled, Anion Gap Cancelled, BUN Cancelled, Creatinine Cancelled, BUN/ Creatinine Ratio Cancelled Microbiology 11/29 1430 BLOOD: Blood Culture - RECD 11/29 1340 BLOOD: Blood Culture - RECD 11/29 0902 URINE ROUT: Urine Culture - COLB Assessment/Plan Assessment: is a 66 yo man with past medical history significant for hepatitis C virus in remission, Waldenstrm's macroglobulinemia, opiate dependence, diabetes , left leg below-knee amputation, alcohol overuse, alcohol withdrawal seizures, GI bleed, infective endocarditis, MRSA bacteremia, history of prostate cancer status post radiation therapy about 10 years ago, history of colon cancer status post surgical resection presented to emergency department with a chief complaint of urinary frequency, difficulty and generalized fatigue. Placed under observation at general medicine floor for UTI ,anemia and uncontrolled blood pressure. #UTI #Hypertensive urgency which could be secondary to poor medication compliance #History of hematuria which could be secondary to radiation hemorrhagic cystitis #History of alcohol dependence and alcohol withdrawal #UTI -We'll start IV antibiotic with ciprofloxacin as he had urine culture last admission which grows Escherichia coli sensitive to Cipro. Culture positive for gram-positive cocci. Transition over to Oral Ciprifloxcin, will need total 7 days of coverage. Patient did see a urologist this a.m. were recommended we check post void residual volumes. #Hypertensive urgency, Initial troponin 11/29/2016 was within normal limits. Formal cardiology consult obtained. Phone call on 11/29/2016 stated that we should hold the patient's aspirin for now. Continue Eliquis. No evidence of hematuria today. Blood pressure remains elevated: 163/106 Hydralazine has been increased to 25 mg 3 times a day. Continue metoprolol 25 mg. #History of alcohol abuse. CIWA protocol for alcohol withdrawal, Ativan per CIWA. CIWA Scores: 20,0,0,0,3 Ativan 2 mg by mouth every 6 scheduled--> 1 mg PO BID. Banana bag #History of diabetes Continue Levemis 14 units. Insulin sliding scale FS, 126,129 DVT prophylaxis Eliquis Full code Problem List: 1. Weakness 2. Hematuria 3. Alcohol dependence 4. Diabetes mellitus 5. CKD (chronic kidney disease) 6. Acute blood loss anemia 7. UTI (urinary tract infection) Pain Ratin Pain Location: Suprapubic Pain Goal: Remain pain free Pain Plan: dilaudid Tomorrow's Labs & Rationales: na
--- NOTE | 2016-11-30 07:44 | Cons- Urology ---
General Information and HPI Consulting Request Date of Consult: 11/30/16 Requested By: Medical JESSICA Luo MD Reason for Consult: UTI and hx of radiation cystitis Source of Information: patient, old records Exam Limitations: no limitations History of Present Illness: He is known to me from his last hospital admission. At that time he was admitted for alcohol detox and was found to have gross hematuria, urinary clot retention and radiation cystitis. In the past he was treated with RT for prostate ca. He required 2 trips to the OR for clot evacuation and fulgeration of bleeding. On the 2nd surgery 1% intravesical formalin was instilled into the bladder and the hematuria resolved after this. He was discharged home voiding spontaneously with clear urine. He received 9 units of PRBC's during that admission. He is now admitted with urinary frequency, urgency, dysuria, incontinence, weakness and SOB. He states that the urine is grossly clear. U/A on admission is c/w UTI Allergies/Medications Allergies: Coded Allergies: NO KNOWN ALLERGIES (06/07/16) Home Med List: Albuterol Sulfate (Ventolin Hfa) 90 MCG HFA.AER.AD 2 PUF INH Q4-6 PRN PRN COPD (Reported) Apixaban (Eliquis) 5 MG TABLET 1 TAB PO BID AFIB (Reported) Aspirin (Ecotrin*) 81 MG TABLET.DR 1 TAB PO DAILY HEART/BLOOD (Reported) Atorvastatin Calcium 20 MG TABLET 1 TAB PO DAILY CHOLESTEROL (Reported) Budesonide/Formoterol Fumarate (Symbicort 160-4.5 Mcg Inhaler) 10.2 GM HFA.AER.AD 2 PUF INH BID RESPIRATORY (Reported) Duloxetine HCl 60 MG CAPSULE.DR 1 CAP PO QAM depression (Reported) Ferrous Sulfate 325 MG (65 MG IRON) TABLET. 325 MG PO DAILY PRN SUPPLEMENT Folic Acid 1 MG TABLET 1 TAB PO DAILY OTHER Gabapentin 300 MG CAPSULE 2 CAP PO TID NERVE PAIN (Reported) Hydralazine HCl 25 MG TABLET 1 TAB PO BID HTN (Reported) Insulin Detemir (Levemir) 100 UNIT/ML VIAL 14 UNITS SC DAILY DM (Reported) Metoprolol Succ XL (Toprol XL) 25 MG TAB.ER.24H 1 TAB PO DAILY BP (Reported) Morphine Sulfate (Ms Contin) 100 MG TABLET.ER 15 MG PO Q12 PAIN Multivitamin (One Daily Multivitamin) 1 EACH TABLET 1 TAB PO DAILY SUPPLEMENT Oxycodone HCl 15 MG TABLET 1 TAB PO Q4 PRN Chronic Back Pain (Reported) Polyethylene Glycol 3350 (Miralax) 17 GRAM/DOSE POWDER 17 GM PO DAILY PRN CONSTIPATION Sennosides/Docusate Sodium (Senna Plus Tablet) 8.6 MG-50 MG TABLET 1 TAB PO BID PRN CONSTIPATION Tamsulosin HCl 0.4 MG CAP.ER.24H 1 CAP PO DAILY PROSTATE (Reported) Trazodone HCl 150 MG TABLET 1 TAB PO QPM FOR SLEEP/ SEDATION (Reported) Current Medications: Current Medications Sig/Avery Start time Last Medication Dose Route Stop Time Status Admin Albuterol Sulfate 2 PUF Q4-6 PRN PRN 11/29 0900 AC INH Apixaban 5 MG BID 11/29 1000 AC 11/29 PO 2213 Aspirin Buffered 81 MG DAILY 11/29 1000 DC 11/29 PO 1008 Atorvastatin Calcium 20 MG DAILY 11/29 1000 AC 11/29 PO 1008 Budesonide/ 2 PUF BID 11/29 1000 AC 11/29 Formoterol Fumarate INH 2213 Ceftriaxone Sodium 1,000 MG DAILY 11/30 1000 CAN IV Ciprofloxacin 400 MG Q12 11/29 2200 AC 11/29 Dextrose/Water 200 ML IV 2213 Cyanocobalamin/ 1 BAG ONCE ONE 11/29 0900 DC 11/29 Thiamine/Pyridoxine IV 11/29 1659 0923 Dextrose/Water 1,000 ML Duloxetine HCl 60 MG DAILY 11/29 1000 AC 11/29 PO 1008 Ferrous Sulfate 325 MG DAILY PRN 11/29 0900 AC PO Folic Acid 1 MG DAILY 11/29 1000 AC 11/29 PO 1008 Gabapentin 600 MG Q12 11/29 2200 AC 11/29 PO 2213 Gabapentin 0 .STK-MED ONE 11/29 2123 DC PO Gabapentin 0 .STK-MED ONE 11/29 1018 DC PO Gabapentin 600 MG TID 11/29 1000 DC 11/29 PO 1015 Hydralazine HCl 25 MG BID 11/29 1000 AC 11/29 PO 2213 Insulin Aspart 0 TIDAC 11/29 1200 AC SC Insulin Detemir 14 UNITS DAILY 11/29 1000 AC 11/29 SC 1025 Lorazepam 0 .STK-MED ONE 11/30 0708 DC .ROUTE Lorazepam 0 .STK-MED ONE 11/30 0456 DC .ROUTE Lorazepam 0 .STK-MED ONE 11/30 0303 DC PO Lorazepam 0 .STK-MED ONE 11/29 2123 DC PO Lorazepam 0 .STK-MED ONE 11/29 1518 DC PO Lorazepam 0 .STK-MED ONE 11/29 0916 DC .ROUTE Lorazepam 0.5 MG ONCE ONE 11/29 0900 DC 11/29 IV 11/29 0901 0923 Lorazepam See Dose Q1P PRN 11/29 0900 AC 11/30 Insts (1) IV 0711 Lorazepam 2 MG Q6H 11/29 0900 AC 11/30 PO 0303 Metoprolol Succinate 25 MG DAILY 11/30 1000 AC 11/30 PO 0736 Metoprolol Succinate 25 MG ONCE ONE 11/29 1700 DC 11/29 PO 11/29 1701 1732 Morphine Sulfate 0 .STK-MED ONE 11/29 2123 DC PO Morphine Sulfate 15 MG Q12 11/29 1000 AC 11/29 PO 2213 Morphine Sulfate 0 .STK-MED ONE 11/29 0749 DC .ROUTE Morphine Sulfate 4 MG ONCE ONE 11/29 0745 DC 11/29 IV 11/29 0746 0741 Multivitamins 1 TAB DAILY 11/29 1000 AC 11/29 Therapeutic PO 1009 Oxycodone HCl 0 .STK-MED ONE 11/30 0708 DC PO Oxycodone HCl 15 MG Q4P PRN 11/29 0900 AC 11/30 PO 0710 Tamsulosin HCl 0.4 MG DAILY 11/29 1000 AC 11/29 PO 1008 Thiamine HCl 0 .STK-MED ONE 11/29 0917 DC .ROUTE Trazodone HCl 100 MG QPM 11/29 2200 AC 11/29 PO 2213 Trazodone HCl 0 .STK-MED ONE 11/29 2123 DC PO Dose Instructions: (1)Lorazepam: See admin criteria Past History Medical History Blood Transfusion Hx: Yes Neurological: delerium tremens, seizure Cardiovascular: AFIB, CHF, hypertension, mitral regurgitation, Staph aureus endocarditis Respiratory: COPD Gastrointestinal: GERD, Diarrhea, nausea Hepatic: hepatitis C Renal: chronic kidney disease Musculoskeletal: degen joint disease, CHRONIC BACK PAIN R FOOT NONHEALING WOUND Psychiatric: alcohol dependence, anxiety Endocrine: diabetes Blood Disorders: anemia, Waldenstrohm's macroglobulinemia Cancer(s): colon/rectal cancer (operated), prostate cancer (treated), [employer]/Reproductive: NONE Surgical History Pertinent Surgical History: colon resection, MITRAL VALVE REPAIR left ankle surgery/arthrodesis Family History Relations & Conditions If Any: FATHER, , Age 87; Cause: Prostate CA. FH: diabetes mellitus FH: stroke FHx: prostate cancer PATERNAL GRANDMOTHER, ; Cause: Colon cancer. MOTHER, , Age 87; Cause: Old age. Psychosocial History Who Do You Live With? self Services at Home: None Primary Language: Sami Smoking Status: Current Everyday Smoker (restart smoking at 2000) ETOH Use: alcoholic Illicit Drug Use: denies illicit drug use Living Will? unknown Power of [place] Wire Weaver/HCP? unknown Functional Ability ADLs Independent: dressing, eating, toileting, bathing. Ambulation: independent (Nadine boot left foot) IADLs Independent: shopping, housework, finances, food prep, telephone, transportation , medication admin. Exam & Diagnostic Data Vital Signs and I&O Vital Signs Date Time Temp Pulse Resp B/P B/P Pulse O2 O2 Flow FiO2 Mean Ox Delivery Rate 11/30 0736 189/95 / 0658 186/94 / 0515 78 20 154/103 06/06 2213 98.7 76 18 178/104 /06 2134 98.7 76 18 178/104 /06 2130 98.7 76 16 178/104 95 Room Air 06/06 2024 97.6 75 16 163/105 95 Room Air /06 1903 Room Air Room Air 06/06 1846 97.8 62 16 172/94 96 Room Air /06 1732 84 141/98 06/06 1732 97.0 84 16 140/98 94 Room Air 06/06 1610 97.6 81 16 182/108 06/06 1604 97.8 84 18 182/108 94 Room Air 06/06 1508 97.7 68 18 190/100 06/06 1255 98.6 80 18 170/100 97 Room Air 06/06 1230 98.6 80 18 170/100 06/06 1132 76 188/104 06/06 1035 97.5 76 18 189/109 06/06 1035 97.5 76 18 187/109 97 Room Air 06/06 1008 99.8 65 18 182/104 06/06 1008 99.8 65 18 182/104 Intake & Output 11/30 0800 11/30 0000 11/29 1600 11/29 0800 11/29 0000 11/28 1600 Intake Total 500 0 Output Total 900 200 Balance -400 -200 0 Intake, Oral 500 0 Output, Urine 900 200 Patient 210 lb 210 lb Weight No acute distress Back: No CVA tenderness Abd: soft and non tender Laboratory Tests 11/30 11/29 11/29 0713 1340 1122 Chemistry Sodium (137 - 145 mmol/L) Pending 139 Cancelled Potassium (3.5 - 5.1 mmol/L) Pending 4.0 Cancelled Chloride (98 - 107 mmol/L) Pending 106 Cancelled Carbon Dioxide (22 - 30 mmol/L) Pending 25 Cancelled Anion Gap (5 - 16) Pending 8 Cancelled BUN (9 - 20 mg/dL) Pending 33 H Cancelled Creatinine (0.7 - 1.2 mg/dL) Pending 2.0 H Cancelled Estimated GFR (>60 ml/min) 34 L BUN/Creatinine Ratio (7 - 25 %) Pending 16.5 Cancelled Troponin I (<0.11 ng/ml) 0.04 Assessment/Plan Assessment/Plan Imp: 1. UTI 2. Radiation cystitis 3. Hx of prostate ca 4. Urinary incontinence. Could be due to UTI, previous intravesical formalin. R/O overflow incontinence Plan: 1. Agree with abx 2. f/u cultures and adjust abx accordingly 3. continue flomax 4. Would check pvr by bladder scan. If over 350 cc then repeat pvr by bladder scan q shift and str cath if >350 cc Consult Acknowledgment - Thank you for your consult request.
--- NOTE | 2016-11-30 08:12 | Patient Discharge Instructions ---
Discharge Instructions General Discharge Information You were seen/treated for: UTI Alcohol Withdrawal Watch for these problems: If you feel weak, experience chest pain, shortness breath, on increased weakness please come back to the emergency department. Special Instructions: Please follow-up with your primary care physician within 7 days of discharge. Please inform your primary care physician of this admission to the hospital. Please inform the primary for this care physician of the treatment administered to you. Please follow up with the urologist within one week of discharge. Please follow-up with your ripsaw matcher within 7 days of discharge. While you admitted your blood pressure was high this could be due to lack of medication compliance. Please continue to monitor your blood pressure twice per day and if it is elevated report your primary care physician. We did increased your blood pressure medication Hydralazine from twice per day to three times per day. Please monitor your blood pressure on a daily basis. Diet Continue normal diet: Yes Activity Full Activity/No Limits: No Acute Coronary Syndrome Inclusion Criteria At DC or during hospital stay patient has or had the following: ACS DIAGNOSIS No Discharge Core Measures Meds if any: Prescribed or Continued at Discharge Meds if any: NOT Prescribed or Continued at Discharge Congestive Heart Failure Inclusion Criteria At DC or during hospital stay patient has or had the following: CHF DIAGNOSIS No Discharge Core Measures Meds if any: Prescribed or Continued at Discharge Meds if any: NOT Prescribed or Continued at Discharge Cerebrovascular accident Inclusion Criteria At DC or during hospital stay patient has or had the following: CVA/TIA Diagnosis No Discharge Core Measures Meds if any: Prescribed or Continued at Discharge Meds if any: NOT Prescribed or Continued at Discharge Venous thromboembolism Inclusion Criteria VTE Diagnosis No VTE Type NONE VTE Confirmed by (Test) NONE Discharge Core Measures - Per Current guidelines, there needs to be overlap - treatment for the first 5 days of Warfarin therapy. - If discharged on Warfarin prior to 5 days of - overlap therapy, the patient will need to be - assessed for post discharge needs including - *Post discharge parental anticoagulation - *Warfarin and/or parental anticoagulation education - *Follow up date to check INR post discharge At least 5 days overlap therapy as Inpatient No Meds if any: Prescribed or Continued at Discharge Note: Overlap Therapy is Warfarin and Anticoagulant Meds if any: NOT Prescribed or Continued at Discharge
[2016-11-30 08:35] LABS: ABSOLUTE BASOPHIL COUNT 0 /CUMM (0.0-0.2); ABSOLUTE EOSINOPHIL COUNT 0.3 /CUMM (0.0-0.7); ABSOLUTE GRANULOCYTE CT 6.6 /CUMM (1.4-6.5); ABSOLUTE LYMPH COUNT 0.4 /CUMM (1.2-3.4); ABSOLUTE MONOCYTE COUNT 0.4 /CUMM (0.10-0.60); BASOPHIL % 0.2 % (0.0-2.0); EOSINOPHIL % 3.3 % (0-5); GRANULOCYTE % 85.5 % (42.2-75.2); HEMATOCRIT 28.8 % (42-52); MEAN CORPUSCULAR HGB 30.9 PG (27.0-31.0); MEAN CORPUSCULAR HGB CONC 33.2 G/DL (33.0-37.0); MEAN CORPUSCULAR VOLUME 93.1 FL (80.0-94.0); MEAN PLATELET VOLUME 7.3 FL (7.4-10.4); PLATELET COUNT 171 /CUMM (130-400); RBC DISTRIBUTION WIDTH 16.7 % (11.5-14.5); WHITE BLOOD CELL COUNT 7.7 /CUMM (4.8-10.8)
--- NOTE | 2016-11-30 09:14 | NUR ---
11/30 CASE MGMT- MET WITH PT. ENCOURAGED PT TO CONTACT FRIEND TO SONOGRAM TECHNICIAN HIS PROSTHESIS IN ORDER TO BE EVALUATED BY PHYSICAL THERAPY. PT STATES " I WILL IN ABOUT AN HOUR", I ENGOURAGED HIM TO CONTACT FRIEND SOON POSSIBLE BECAUSE THE PROCESS OF PERFORMING BED SEARCH TAKES SOME TIME AND THE EARLIER THAT WE FIND OUT IF PT PLAN OF CARE NEEDS ARE SHORT TERM REHAB THE WE REALLY NEED TO START ON PAPERWORK AND A BED SEARCH- PT STATES "I WILL CALL AFTER I EAT [place] BREAKFAST". CASE MGMT WILL CONTINUE TO FOLLOW.
--- NOTE | 2016-11-30 10:53 | NUR ---
11/30 CASE MGMT- PT SUGGESTING HOME WITH HOME PT. PT HAS HAD [facility] IN THE PAST AND WOULD LIKE TO HAVE THEM AGAIN. PAGED COVERING DR ROWAN AWAITING RETURN CALL BACK WILL NEED W10 FILLED OUT PRIOR TO SETTING UP [facility]. CASE MGMT WILL CONTINUE TO FOLLOW.
[2016-11-30] MEDS ORDERED: CIPRO500 M1 PO ×4 (10:58→15:43)
--- NOTE | 2016-11-30 11:45 | NUR ---
11/30 CASE MGMT- SPOKE WITH KIRILL WILL BE DOWN SHORTLY TO SIGN W10 AND THEN WILL FAX TO [facility] TO SET UP [facility]. FAX NUMBER [phone]
[2016-11-30] MEDS ORDERED: HYDRALAZINE HCL25 M1 PO (16:21)
--- NOTE | 2016-11-30 19:06 | NUR ---
pt has a bed 201-1
--- NOTE | 2016-11-30 19:51 | NUR ---
REPORT CALLED TO 2 LUZ MARINA BEST RN. NASIR NOTIFIED THAT PT IS ON CIWA PROTOCOL BUT HAS NOT REQUIRED MEDICATION FOR CIWA SCORE. PT TO GET POST VOID BLADDER SCANNED BUT HAS BEEN VOIDING IN LARGE AMOUNTS.
--- NOTE | 2016-11-30 20:14 | NUR ---
nurse note: PT [id number], VSS, RA. CHIQUITA ANY PAIN AT THIS TIME. BEW LOW CALL KING IN REACH. WILL CONTINUE TO MONITOR.
--- NOTE | 2016-11-30 21:56 | NUR ---
AT APPROX 8 PM PATIENT ARRIVED ON FLOOR. WAS ALERT AND ORIENTATED. PATIENT WAS ORIENTATED TO PRIMARY NURSE, ROOM AND SURROUNDINGS. FALL RISK PRECAUTIONS PUT IN PLACE. PATIENT VITALS WERE STABLE. INFO PACKET GIVEN AND QUESTIONS ANSWERED. WILL CONTINUE TO MONITOR.
--- NOTE | 2016-12-01 06:08 | PN- Housestaff ---
REECE ARCEO,[facility] 12/01/16 0606: Subjective Follow-up For: UTI Subjective: Patient seen and examined this morning. Resting comfortably in bed. Denies any issues overnight. States he feels better, although continues to endorse suprapubic tenderness. Pain is rated at a 6/10 in severity. Described as sharp. Patient also endorses urinary frequency and has been voiding a significant amount of urine overnight. Denies fever, chills, nausea and vomiting. Review of Systems Constitutional: Reports: see HPI. Objective Last 24 Hrs of Vital Signs/I&O Vital Signs Date Time Temp Pulse Resp B/P B/P Pulse O2 O2 Flow FiO2 Mean Ox Delivery Rate 11/30 2241 97.8 70 20 140/80 93 11/30 2159 68 140/80 12/01 2011 97.9 72 20 120/90 96 / 1834 97.2 77 20 142/58 11/30 1829 97.2 77 20 142/85 96 Room Air / 1705 97.8 81 20 163/106 /07 1616 97.2 81 20 163/108 /07 1616 97.8 81 20 163/106 97 Room Air /07 1519 66 160/90 96 Room Air /07 1058 Room Air Room Air /07 1015 82 162/90 06/07 0930 98.6 82 18 162/90 96 Room Air /07 0800 100 Nasal 2.0L Cannula 11/30 0736 189/95 / 0658 186/94 Intake & Output 12/01 0800 06/08 0000 07 1600 Intake Total 300 760 Output Total 1600 675 950 Balance -1600 -375 -190 Intake, IV 200 Intake, Oral 300 560 Output, Urine 1600 675 950 Physical Exam General Appearance: Alert, Oriented X3, Cooperative Skin: No Rashes Skin Temp/Moisture Exam: Warm/Dry Cardiovascular: Regular Rate, Normal S1, Normal S2 Lungs: Clear to Auscultation Abdomen: Normal Bowel Sounds, Soft, Hernia, Suprapubic Tenderness. Neurological: Normal Speech Extremities: No Clubbing Vascular: Normal Pulses Current Medications: Current Medications Sig/Avery Start time Last Medication Dose Route Stop Time Status Admin Albuterol Sulfate 2 PUF Q4-6 PRN PRN 11/29 0900 AC INH Apixaban 5 MG BID 11/29 1000 AC 11/30 PO 2159 Atorvastatin Calcium 20 MG DAILY 11/29 1000 AC 11/30 PO 1016 Budesonide/ 2 PUF BID 11/29 1000 AC 11/30 Formoterol Fumarate INH 1019 Ciprofloxacin 500 MG BID 11/30 2200 AC 11/30 PO 12/01 1001 2159 Ciprofloxacin 500 MG ONCE ONE 11/30 1100 CAN PO 11/30 1300 Ciprofloxacin 400 MG Q12 11/29 2200 DC 11/30 Dextrose/Water 200 ML IV 1023 Duloxetine HCl 60 MG DAILY 11/29 1000 AC 11/30 PO 1015 Ferrous Sulfate 325 MG DAILY PRN 11/29 0900 AC PO Folic Acid 1 MG DAILY 11/29 1000 AC 11/30 PO 1016 Gabapentin 600 MG Q12 11/29 2200 AC 11/30 PO 2159 Hydralazine HCl 25 MG TID 11/30 1600 AC 11/30 PO 2159 Hydralazine HCl 25 MG BID 11/29 1000 DC 11/30 PO 1015 Insulin Aspart 0 TIDAC 11/29 1200 AC SC Insulin Detemir 14 UNITS DAILY 11/29 1000 AC 11/30 SC 1018 Lorazepam 1 MG BID 11/30 2200 AC 11/30 PO 2159 Lorazepam 0 .STK-MED ONE 11/30 1016 DC PO Lorazepam 0 .STK-MED ONE 11/30 0708 DC .ROUTE Lorazepam See Dose Q1P PRN 11/29 0900 AC 11/30 Insts (1) IV 0711 Lorazepam 2 MG Q6H 11/29 0900 DC 11/30 PO 1015 Metoprolol Succinate 25 MG DAILY 11/30 1000 AC 11/30 PO 0736 Morphine Sulfate 0 .STK-MED ONE 11/30 1017 DC PO Morphine Sulfate 15 MG Q12 11/29 1000 AC 11/30 PO 2159 Multivitamins 1 TAB DAILY 11/29 1000 AC 11/30 Therapeutic PO 1017 Oxycodone HCl 0 .STK-MED ONE 11/30 1136 DC PO Oxycodone HCl 0 .STK-MED ONE 11/30 1135 DC PO Oxycodone HCl 0 .STK-MED ONE 11/30 0708 DC PO Oxycodone HCl 15 MG Q4P PRN 11/29 0900 AC 11/30 PO 1135 Tamsulosin HCl 0.4 MG DAILY 11/29 1000 AC 11/30 PO 1016 Trazodone HCl 100 MG QPM 11/29 2200 AC 11/30 PO 2159 Dose Instructions: (1)Lorazepam: See admin criteria Last 24 Hrs of Lab/Manny Results Last 24 Hrs of Labs/Mics: Laboratory Tests 11/30/16 0820: Anion Gap 7, Estimated GFR 32 L, BUN/Creatinine Ratio 14.8, CBC w Diff NO MAN DIFF REQ, RBC 3.10 L, MCV 93.1, MCH 30.9, RDW 16.7 H, MPV 7.3 L, Gran % 85.5 H, Lymphocytes % 5.5 L, Monocytes % 5.5, Eosinophils % 3.3, Basophils % 0.2, Absolute Granulocytes 6.6 H, Absolute Lymphocytes 0.4 L, Absolute Monocytes 0.4, Absolute Eosinophils 0.3, Absolute Basophils 0, PUBS MCHC 33.2 Assessment/Plan Assessment: is a 66 yo man with past medical history significant for hepatitis C virus in remission, Waldenstrm's macroglobulinemia, opiate dependence, diabetes , left leg below-knee amputation, alcohol overuse, alcohol withdrawal seizures, GI bleed, infective endocarditis, MRSA bacteremia, history of prostate cancer status post radiation therapy about 10 years ago, history of colon cancer status post surgical resection presented to emergency department with a chief complaint of urinary frequency, difficulty and generalized fatigue. This is a 66-year-old gentleman who has presented with evidence of a UTI following a lack of compliance after being previously discharged from [facility]. Placed under observation at general medicine floor for UTI ,anemia and uncontrolled blood pressure. #UTI #Hypertensive urgency which could be secondary to poor medication compliance #History of hematuria which could be secondary to radiation hemorrhagic cystitis #History of alcohol dependence and alcohol withdrawal #UTI -We'll start IV antibiotic with ciprofloxacin as he had urine culture last admission which grows Escherichia coli sensitive to Cipro. Culture positive for gram-positive cocci. Transition over to Oral Ciprifloxcin, will need total 7 days of coverage. Patient to follow-up with urologist as an outpatient. #Hypertensive urgency, Initial troponin 11/29/2016 was within normal limits. Formal cardiology consult obtained. Phone call on 11/29/2016 stated that we should hold the patient's aspirin for now. Continue Eliquis. No evidence of hematuria today. Blood pressure remains elevated:196/99 Hydralazine has been increased to 25 mg 3 times a day. Continue metoprolol 25 mg. Norvasc 5 mg was also added to the patients anti hypertensive regimen. He had been on this medication prior to discharge however it was stopped on his last visit here. #History of alcohol abuse. [facility] protocol for alcohol withdrawal, Ativan per [facility]. CIWA Scores: 0,0,0,0,0 Ativan 2 mg by mouth every 6 scheduled--> 1 mg PO BID. Banana bag #History of diabetes Continue Levemis 14 units. Insulin sliding scale DVT prophylaxis Eliquis Full code Problem List: 1. UTI (urinary tract infection) 2. Weakness 3. YVROSE (acute kidney injury) 4. HTN (hypertension) Pain Ratin Pain Location: Suprapubic pain Pain Goal: Remain pain free Pain Plan: tylenol Tomorrow's Labs & Rationales: jeovany WHITAKER MD,JESSICA 12/01/16 1355: Attending MD Review Statement Attending Statement Attending MD Statement: examined this patient, discuss w/resident/PA/CONSTRUCTION SERVICES TECHNICIAN, agreed w/resident/PA/CONSTRUCTION SERVICES TECHNICIAN, reviewed EMR data (avail) Attending Assessment/Plan: Patient feels better today. He reports feeling a bit weak but is overall well. He denies pain. BP was elevated 190/110 this morning. Continued Hydralazine and Metoprolol at increased doses, and restart Norvasc which had been stopped on 10/31. BP responded appropriately. Patient is stable for discharge home, and may follow up with his dental hygiene teacher and PCP.
--- NOTE | 2016-12-01 07:32 | PN- Urology ---
Subjective Subjective: Describes suprapubic pressure Objective Vital Signs and I&Os Vital Signs Date Time Temp Pulse Resp B/P B/P Pulse O2 O2 Flow FiO2 Mean Ox Delivery Rate 11/302 97.8 70 20 140/80 93 11/30 2159 68 140/80 12/01 2011 97.9 72 20 120/90 96 / 1834 97.2 77 20 142/58 11/30 1829 97.2 77 20 142/85 96 Room Air 11/30 1705 97.8 81 20 163/106 /07 1616 97.2 81 20 163/108 06/07 1616 97.8 81 20 163/106 97 Room Air 11/30 1519 66 160/90 96 Room Air / 1058 Room Air Room Air 11/30 1015 82 162/90 11/30 0930 98.6 82 18 162/90 96 Room Air 11/30 0800 100 Nasal 2.0L Cannula 11/30 0736 189/95 Intake & Output 12/01 0800 / 0000 07 1600 11/30 0800 / 0000 11/29 1600 Intake Total 600 300 760 500 Output Total 1900 675 950 900 Balance -1300 -375 -190 -400 Intake, IV 200 Intake, Oral 600 300 560 500 Output, Urine 1900 675 950 900 Patient 210 lb Weight voiding clear urine PVR by bladder scan 145 cc Laboratory Tests 11/30 08 Chemistry Sodium (137 - 145 mmol/L) 138 Potassium (3.5 - 5.1 mmol/L) 4.4 Chloride (98 - 107 mmol/L) 104 Carbon Dioxide (22 - 30 mmol/L) 28 Anion Gap (5 - 16) 7 BUN (9 - 20 mg/dL) 31 H Creatinine (0.7 - 1.2 mg/dL) 2.1 H Estimated GFR (>60 ml/min) 32 L BUN/Creatinine Ratio (7 - 25 %) 14.8 Hematology CBC w Diff NO MAN DIFF REQ WBC (4.8 - 10.8 /CUMM) 7.7 RBC (4.70 - 6.10 /CUMM) 3.10 L Hgb (14.0 - 18.0 G/DL) 9.6 L Hct (42 - 52 %) 28.8 L MCV (80.0 - 94.0 FL) 93.1 MCH (27.0 - 31.0 PG) 30.9 RDW (11.5 - 14.5 %) 16.7 H Plt Count (130 - 400 /CUMM) 171 MPV (7.4 - 10.4 FL) 7.3 L Gran % (42.2 - 75.2 %) 85.5 H Lymphocytes % (20.5 - 51.1 %) 5.5 L Monocytes % (1.7 - 9.3 %) 5.5 Eosinophils % (0 - 5 %) 3.3 Basophils % (0.0 - 2.0 %) 0.2 Absolute Granulocytes (1.4 - 6.5 /CUMM) 6.6 H Absolute Lymphocytes (1.2 - 3.4 /CUMM) 0.4 L Absolute Monocytes (0.10 - 0.60 /CUMM) 0.4 Absolute Eosinophils (0.0 - 0.7 /CUMM) 0.3 Absolute Basophils (0.0 - 0.2 /CUMM) 0 PUBS MCHC (33.0 - 37.0 G/DL) 33.2 Assessment/Plan Assessment/Plan Imp: 1. UTI 2. Radiation cystitis. s/p instillation of intravesical formalin on last admission. This could contribute to bladder sx's 3. Hx of prostate ca tx'ed in past with RT Plan: 1. Complete full course of abx 2. Office f/u after discharge
[2016-12-01 07:41] VITALS: BP 180/110
--- NOTE | 2016-12-01 08:06 | NUR ---
MST REPORTED TO THIS RN PATIENT'S BP 180/110; THIS RN IN ROOM TO RECHECK BP; BP MANUALLY 170/90 AT THIS TIME; REPORTED BP TO MD KIRILL NEWELL; PER DR NEWELL GIVE ALL MORNING MEDS NOW (INCLUDING METOPROLOL AND HYDRALAZINE); WILL RECHECK BP IN ONE HOUR; PATIENT DENIES HEADACHE; CALL [facility] AND NEEDS WITHIN REACH; BEDALARM IN PLACE; SAFETY MAINTAINED;
[2016-12-01 08:55] VITALS: BP 190/110
--- NOTE | 2016-12-01 08:57 | NUR ---
BP 190/110; PATIENT ASYMPTOMATIC AND SITTING AT EDGE OF BED EATING BREAKFAST; PATIENT HAS PAIN TO "BLADDER, BACK AND PHANTOM PAIN TO LLE 8/10" AT THIS TIME; PATIENT MEDICATED FOR PAIN PER EMAR; DR JEFF NOTIFIED OF BLOOD PRESSURE 190/110 AND TO COME ASSESS PATIENT; DR JEFF IN ROOM; AWAITING FUTHER ORDERS;
[2016-12-01 10:26] VITALS: BP 196/99
--- NOTE | 2016-12-01 10:27 | NUR ---
BP TAKEN BY CHAIRMAN & CEO Delmis HERNANDEZ RN; BP 196/99, HR 83; DR JEFF NOTIFIED AND TO COME ASSESS PATIENT; PATIENT DENIES HEADACHE; PATIENT ASYMPTOMATIC; AWAITING FURHTER ORDERS AT THIS TIME; CALL [facility] AND NEEDS WITHIN REACH; BEDALARM IN PLACE; SAFETY MAINTAINED;
[2016-12-01 12:20] VITALS: BP 174/110
--- NOTE | 2016-12-01 12:20 | NUR ---
BP 174/110 MANUALLY; DR KIRILL NEWELL AWARE; PO NORVASC ORDERED PER DR ROY; MST TO PHARMACY TO SECURITY SUPERVISOR NORVASC; PATIENT REMAIN ASYMPTOMATIC WITH NO COMPLAINTS OF A HEADACHE; PATIENT STATES "MY PRESSURE DOES RUN VERY HIGH AT HOME, IT SEEMS TO BE GETTING BETTER NOW"; WILL GIVE NORVASC WHEN IT ARRIVES TO FLOOR; CALL [facility] AND NEEDS WITHIN REACH; BEDALARM IN PLACE; WILL CONTINUE TO MONITOR PATIENT;
[2016-12-01] MEDS ORDERED: HYDRALAZINE HCL50 M1 PO (13:12)
[2016-12-01] MEDS ORDERED: AMLODIPINE BESYL5 M1 PO ×2 (13:12→16:06)
[2016-12-01] MEDS ORDERED: TOPROL XL50 M1 PO (13:12)
[2016-12-01 13:32] VITALS: BP 140/80
[2016-12-01 14:35] VITALS: BP 130/60
[2016-12-01] MEDS ORDERED: HYDRALAZINE HCL25 M1 PO ×2 (14:49→16:06)
[2016-12-01] MEDS ORDERED: CIPRO500 M1 PO (16:06)
--- NOTE | 2016-12-01 16:23 | Cons- Cardiology ---
General Information and HPI Consulting Request Date of Consult: 12/01/16 Requested By: JESSICA WHITAKER MD History of Present Illness: Wagner is a 66 year old male who carries a history of hypertension, diabetes, mitral regurgitation with prolapse, tricuspid regurgitation, and prior history of endocarditis. He is now status post mitral valve repair with a Maze procedure performed in November of [address] Juvenal Palencia. This patient also has a history of alcohol abuse with DT's and withdrawal seizure and hepatitis C. Wagner returned to [facility] for symptoms related to a recurrent urinary tract infection. There was no significant bleeding associated with this infection following the patient's recent urologic procedures. On last visit he had been experiencing hematuria and dysuria and noted intermittent blood clots in his urine. He does have a history of prostate cancer s/p radiation therapy and was found to have prostatitis. He currently feels improved without chest discomfort, shortness of breath, lightheadedness or palpitations. Wagner was recently in the hospital for treatment of a left foot and ankle cellulitis with suspected osteomyelitis. 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 He feels much better after this procedure. It may be recalled that at his baseline, Wagner could walk at a brisk pace without experiencing any chest pain, pressure, tightness, shortness of breath, lightheadedness or palpitations. He continues to have issues with drinking. It should be noted that he recently was taken off his ACEI due to an elevated potassium and was started on Hydralazine. In consideration of some elevated blood pressures he opted to increase his hydralazine dose on his own to three times daily. This appears to have been a reasonable decision. Anemia has been an intermittent problem which results in fatigue. This patient has had multiple prior blood transfusions. In the past the patient was also known to be anemic and had guaiac positive stools in the setting of Coumadin use. There was some thought that interferon therapy used to treat the patient's Hepatitis C might cause some degree of anemia. Finally, it should be recalled that this patient is status post DC cardioversion for his atrial fibrillation. However, despite being on Amiodarone, the patient had a return of his AFib. I, therefore, discontinued Amiodarone due to its ineffectiveness. In late 2010, the patient had a kidney biopsy revealing cryoglobulinemic glomerulonephritis, with IgM deposition. The patient was found to have mitral valve replacement in 2010. He did start hepatitis C virus therapy and developed progressive anemia, which is attributed to antiviral therapy. The patient received multiple November 2011, he was found to have alloantibodies. He was aggressively treated for anemia in June 2012, with packed red blood cell transfusions, as well as erythropoietin. 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 With hemolytic anemia and high cold agglutinin titer, the patient was treated with rituximab in the summer of 2012. Posttreatment course was complicated by recurred prostate cancer for which he resumed hormonal therapy. 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 Patient was initiated on treatment approximately 2-1/2 weeks ago, consisting of dexamethasone, rituximab, and cyclophosphamide. It should be recalled that this patient has had mild renal insufficiency as well as hepatic insufficiency evaluated by Dr. Mcnally. He is now followed by the Clinic at the [facility] who is treating his hepatic insufficiency which is due to a combination of alcohol abuse and hepatitis C. He did have an episode of decompensated CHF which led to his mitral valve repair with Maze procedure. It should be noted that a presurgical PRITESH showed moderate thickening and calcification of the anterior mitral valve leaflet with moderate prolapse of the posterior mitral valve leaflet and mild prolapse of the anterior mitral valve leaflet. Findings were consistent with a mobile vegetation of the posterior leaflet and there was moderate to severe mitral regurgitation. It is felt that this was sterile vegetation since the patient had no evidence of active endocarditis and had previously been treated for this condition. A transthoracic echo showed a normal EF of 60% with mild septal hypertrophy. The left atrium was moderately to severely enlarged. The tricuspid valve disclosed mild regurgitation with mildly increased RV pressures of 41.0 mmHg and the mitral valve showed moderate to severe mitral regurgitation with mild prolapse of the posterior leaflet and an echogenic density consistent with vegetation which was in agreement with his PRITESH. His surgery was preceded by cardiac catheterization. This study showed a normal left main. The LAD had luminal irregularities. There was a ramus branch vs. high take-off first diagonal branch which was a large vessel with luminal irregularities. The left circumflex is patent in the AV groove. It parented a very high take-off large obtuse marginal one branch with a 30% proximal non-flow limiting stenosis. The right coronary artery was a large dominant vessel which was diffusely diseased with luminal irregularities throughout most of its course. It does harbor a 50% distal stenosis prior to the bifurcation. His overall EF was 50% with severe mitral regurgitation. Allergies/Medications Allergies: Coded Allergies: NO KNOWN ALLERGIES (06/07/16) Home Med List: Albuterol Sulfate (Ventolin Hfa) 90 MCG HFA.AER.AD 2 PUF INH Q4-6 PRN PRN COPD (Reported) Amlodipine Besylate 5 MG TABLET 1 TAB PO DAILY Blood pressure . Apixaban (Eliquis) 5 MG TABLET 1 TAB PO BID AFIB (Reported) Aspirin (Ecotrin*) 81 MG TABLET.DR 1 TAB PO DAILY HEART/BLOOD (Reported) Atorvastatin Calcium 20 MG TABLET 1 TAB PO DAILY CHOLESTEROL (Reported) Budesonide/Formoterol Fumarate (Symbicort 160-4.5 Mcg Inhaler) 10.2 GM HFA.AER.AD 2 PUF INH BID RESPIRATORY (Reported) Ciprofloxacin HCl (Cipro) 500 MG TABLET 1 TAB PO BID UTI .Start in the PM of 11/30/2016. Then take twice per day. Duloxetine HCl 60 MG CAPSULE.DR 1 CAP PO QAM depression (Reported) Ferrous Sulfate 325 MG (65 MG IRON) TABLET.DR 325 MG PO DAILY PRN SUPPLEMENT Folic Acid 1 MG TABLET 1 TAB PO DAILY OTHER Gabapentin 300 MG CAPSULE 2 CAP PO TID NERVE PAIN (Reported) Hydralazine HCl 25 MG TABLET 1 TAB PO BID HTN (Reported) Hydralazine HCl 25 MG TABLET 1 TAB PO TID Blood pressure . Insulin Detemir (Levemir) 100 UNIT/ML VIAL 14 UNITS SC DAILY DM (Reported) Metoprolol Succ XL (Toprol XL) 25 MG TAB.ER.24H 1 TAB PO DAILY BP (Reported) Morphine Sulfate (Ms Contin) 100 MG TABLET.ER 15 MG PO Q12 PAIN Multivitamin (One Daily Multivitamin) 1 EACH TABLET 1 TAB PO DAILY SUPPLEMENT Oxycodone HCl 15 MG TABLET 1 TAB PO Q4 PRN Chronic Back Pain (Reported) Polyethylene Glycol 3350 (Miralax) 17 GRAM/DOSE POWDER 17 GM PO DAILY PRN CONSTIPATION Sennosides/Docusate Sodium (Senna Plus Tablet) 8.6 MG-50 MG TABLET 1 TAB PO BID PRN CONSTIPATION Tamsulosin HCl 0.4 MG CAP.ER.24H 1 CAP PO DAILY PROSTATE (Reported) Trazodone HCl 150 MG TABLET 1 TAB PO QPM FOR SLEEP/ SEDATION (Reported) Past History Travel History Traveled to [place] past 21 day No Medical History Blood Transfusion Hx: Yes Neurological: delerium tremens, seizure Cardiovascular: AFIB, CHF, hypertension, mitral regurgitation, Staph aureus endocarditis Respiratory: COPD Gastrointestinal: GERD, Diarrhea, nausea Hepatic: hepatitis C Renal: chronic kidney disease Musculoskeletal: degen joint disease, CHRONIC BACK PAIN R FOOT NONHEALING WOUND Psychiatric: alcohol dependence, anxiety Endocrine: diabetes Blood Disorders: anemia, Waldenstrohm's macroglobulinemia Cancer(s): colon/rectal cancer (operated), prostate cancer (treated), 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 FH: diabetes mellitus FH: stroke FHx: prostate cancer PATERNAL GRANDMOTHER, ; Cause: Colon cancer. MOTHER, , Age 87; Cause: Old age. Psychosocial History Who Do You Live With? self Services at Home: None Primary Language: Turkmen Smoking Status: Current Everyday Smoker (restart smoking at 2000) ETOH Use: alcoholic Illicit Drug Use: denies illicit drug use Living Will? unknown Power of Cement Mixer/HCP? unknown Functional Ability ADLs Independent: dressing, eating, toileting, bathing. Ambulation: independent (Nadine boot left foot) IADLs Independent: shopping, housework, finances, food prep, telephone, transportation , medication admin. Exam & Diagnostic Data Vital Signs and I&O Vital Signs Date Time Temp Pulse Resp B/P B/P Pulse O2 O2 Flow FiO2 Mean Ox Delivery Rate 12/01 1435 98.2 69 18 130/60 97 Room Air 12/01 1332 140/80 12/01 1229 174/110 12/01 1220 174/110 12/01 1052 83 196/99 12/01 1026 83 196/99 12/01 0901 190/110 12/01 0855 190/110 06/08 0759 86 170/90 12/01 0758 86 170/90 12/01 0758 86 170/90 12/01 0741 97.4 85 20 180/110 99 Nasal 2.0L Cannula 11/30 2242 97.8 70 20 140/80 93 11/30 2159 68 140/80 12/01 2011 97.9 72 20 120/90 96 11/30 1834 97.2 77 20 142/58 11/30 1829 97.2 77 20 142/85 96 Room Air 11/30 1705 97.8 81 20 163/106 Intake & Output 12/01 1600 12/01 0800 12/01 0000 11/30 1600 11/30 0800 11/30 0000 Intake Total 600 600 300 760 500 Output Total 900 2525 675 950 900 Balance -300 -1925 -375 -190 -400 Intake, IV 0 200 Intake, Oral 600 600 300 560 500 Output, Urine 900 2525 675 950 900 Patient 210 lb 210 lb Weight Physical Exam: General: well developed, well nourished male in no acute distress HEENT: NCAT, PERRL, EOMI Neck: no JVD, no carotid bruit Heart: RRR Lungs: CTA bilaterally Abdomen: Soft, nontender, nondistended, bowel sounds intact Ext: normal pulses, no cyanosis/clubbing/edema, left BKA Assessment/Plan Assessment/Plan * This patient had been off chronic anticoagulation for an extended period of time due to his recent bleeding issues. At this time hematuria is not a significant issue and the patient should continue Eliquis for stroke prophylaxis. Otherwise he is doing well on his current drug regimen. Consult Acknowledgment - Thank you for your consult request.
== END 2016-12-01 16:37 | disposition home health service (06) ==
LOC: ERH 22:34 → ERHI 11-29 07:34 → ENRESERV 11-29 23:50 → ERHI 11-30 10:50 → ENRESERV 11-30 19:10 → ENTRNSPT 11-30 19:49 → 2NB 11-30 20:02 → CMPTRNSPT 12-01 07:07 → 2NB 12-01 16:37
PROVIDERS: Emergency Medicine; Student in an Organized Health Care Education/Training Program; ADMIT Internal Medicine
DX: N39.0 Urinary tract infection, site not specified (principal); I13.0 Hypertensive heart and chronic kidney disease with heart failure and stage 1 through stage 4 chronic kidney disease, or unspecified chronic kidney disease; I50.9 Heart failure, unspecified; N18.3 Chronic kidney disease, stage 3 (moderate); E11.22 Type 2 diabetes mellitus with diabetic chronic kidney disease; Z79.4 Long term (current) use of insulin; Z85.46 Personal history of malignant neoplasm of prostate; I48.91 Unspecified atrial fibrillation; I34.0 Nonrheumatic mitral (valve) insufficiency; J44.9 Chronic obstructive pulmonary disease, unspecified; K21.9 Gastro-esophageal reflux disease without esophagitis; B18.2 Chronic viral hepatitis C; F41.9 Anxiety disorder, unspecified; C88.0 Waldenstrom macroglobulinemia; Z85.038 Personal history of other malignant neoplasm of large intestine; Z86.14 Personal history of Methicillin resistant Staphylococcus aureus infection; F11.20 Opioid dependence, uncomplicated; R56.9 Unspecified convulsions; Z95.2 Presence of prosthetic heart valve; F17.200 Nicotine dependence, unspecified, uncomplicated; Z79.01 Long term (current) use of anticoagulants; N17.9 Acute kidney failure, unspecified
CPT/HCPCS: 81001; 82436; 86902; 86920; 86922; 87040; 87086; 87147; 93005; 93010; 96372; 96374; 96375; 96376; 97161-GP; 97530-GP; G0378; G0480; G8978-GP; G8979-GP; G8980-GP; J0696; J0744; J3490; J7060

== ENCOUNTER 2016-12-04 06:30 | Emergency (ER) | payer OTHER, MEDICARE ==
[~2016-12-04] VITALS: Ht 180.3 cm; Wt 95.3 kg
[~2016-12-04 06:30] MED LIST changes: +AMLODIPINE BESYL5 M1 PO; +CIPRO500 M1 PO; +TOPROL XL50 M1 PO
--- NOTE | 2016-12-04 07:04 | ED GENERAL ADULT ---
History of Present Illness General Chief Complaint: Dyspnea (COPD, CHF, Other) Stated Complaint: BIBA SOB Source: patient, old records, EMS Exam Limitations: no limitations Vital Signs & Intake/Output Vital Signs & Intake/Output Vital Signs Date Time Temp Pulse Resp B/P B/P Pulse O2 O2 Flow FiO2 Mean Ox Delivery Rate 12/04 1150 97.1 74 20 188/98 96 12/04 0921 97.1 88 18 190/108 98 12/04 0640 98.0 69 24 194/110 100 Room Air Allergies Coded Allergies: NO KNOWN ALLERGIES (06/07/16) Reconcile Medications Albuterol Sulfate (Ventolin Hfa) 90 MCG HFA.AER.AD 2 PUF INH Q4-6 PRN PRN COPD (Reported) Amlodipine Besylate 5 MG TABLET 1 TAB PO DAILY Blood pressure . Amoxicillin 250 MG CAPSULE 1 CAP PO TID URINE INFECTION Apixaban (Eliquis) 5 MG TABLET 1 TAB PO BID AFIB (Reported) Aspirin (Ecotrin*) 81 MG TABLET.DR 1 TAB PO DAILY HEART/BLOOD (Reported) Atorvastatin Calcium 20 MG TABLET 1 TAB PO DAILY CHOLESTEROL (Reported) Budesonide/Formoterol Fumarate (Symbicort 160-4.5 Mcg Inhaler) 10.2 GM HFA.AER.AD 2 PUF INH BID RESPIRATORY (Reported) Duloxetine HCl 60 MG CAPSULE.DR 1 CAP PO QAM depression (Reported) Ferrous Sulfate 325 MG (65 MG IRON) TABLET.DR 325 MG PO DAILY PRN SUPPLEMENT Folic Acid 1 MG TABLET 1 TAB PO DAILY OTHER Gabapentin 300 MG CAPSULE 2 CAP PO TID NERVE PAIN (Reported) Hydralazine HCl 25 MG TABLET 1 TAB PO TID Blood pressure . Insulin Detemir (Levemir) 100 UNIT/ML VIAL 14 UNITS SC DAILY DM (Reported) Metoprolol Succ XL (Toprol XL) 25 MG TAB.ER.24H 1 TAB PO DAILY BP (Reported) Morphine Sulfate (Ms Contin) 100 MG TABLET.ER 15 MG PO Q12 PAIN Multivitamin (One Daily Multivitamin) 1 EACH TABLET 1 TAB PO DAILY SUPPLEMENT Oxycodone HCl 15 MG TABLET 1 TAB PO Q4 PRN Chronic Back Pain (Reported) Polyethylene Glycol 3350 (Miralax) 17 GRAM/DOSE POWDER 17 GM PO DAILY PRN CONSTIPATION Sennosides/Docusate Sodium (Senna Plus Tablet) 8.6 MG-50 MG TABLET 1 TAB PO BID PRN CONSTIPATION Tamsulosin HCl 0.4 MG CAP.ER.24H 1 CAP PO DAILY PROSTATE (Reported) Trazodone HCl 150 MG TABLET 1 TAB PO QPM FOR SLEEP/ SEDATION (Reported) Triage Note: PT BIBA FROM C/O "CENTER GROIN PAIN" AND SOB. PT STATES HE HAS NOT BEEN TAKING HIS ANTIBIOTICS FOR HIS UTI. "THEY GAVE ME IV ANTIBIOTICS WHILE I WAS HERE AT THE HOSPITAL" "NOW I HAVE CENTER GROIN PAIN FOR ONE OR TWO DAYS" ALSO C/O SOB. O2 SAT 100% ON RA, PT SMOKING ON EMS ARRIVAL. TEMP 98. HR 69. PT STATES "I'VE BEEN ON A VODKA SKINNER, I NEED SOME ATIVAN" BP 194/110 MANUALLY. ALSO HAS NOT BEEN TAKING BP MEDS. PT REPEATEDLY REQUESTING ATIVAN. Triage Nurses Notes Reviewed? yes HPI: Patient brought in by ambulance for dysuria and groin pain and shortness of breath. Patient states he was recently discharged from here in the hospital after admission for UTI. Agent states that he never followed to warp picker his prescription for his urinary tract infection because she went to the liquor store instead and just began drinking vodka. Vision denies any suicidal or homicidal ideations. Patient states this area is 10 out of 10 and he requires morphine to help with the pain. There is no radiation of the pain. The dysuria is worsened with urination. There are no fevers or chills. There is no nausea or vomiting. Past History Travel History Traveled to [place] past 21 day No Medical History Any Pertinent Medical History? 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 FH: diabetes mellitus FH: stroke FHx: prostate cancer PATERNAL GRANDMOTHER, ; Cause: Colon cancer. MOTHER, , Age 87; Cause: Old age. Hx Contributory? No Review of Systems Review of Systems Constitutional: Reports: no symptoms. EENTM: Reports: no symptoms. Respiratory: Reports: no symptoms. Cardiovascular: Reports: no symptoms. GI: Reports: no symptoms. Genitourinary: Reports: see HPI, dysuria. Musculoskeletal: Reports: no symptoms. Skin: Reports: no symptoms. Neurological/Psychological: Reports: no symptoms. Hematologic/Endocrine: Reports: no symptoms. Immunologic/Allergic: Reports: no symptoms. All Other Systems: Reviewed and Negative Physical Exam Physical Exam General Appearance: well developed/nourished, alert, awake, anxious, mild distress Head: atraumatic, normal appearance Eyes: Bilateral: PERRL, EOMI. Ears, Nose, Throat: normal pharynx, normal ENT inspection Neck: normal inspection, supple, full range of motion Respiratory: normal breath sounds, chest non-tender, no respiratory distress, lungs clear Cardiovascular: regular rate/rhythm, normal peripheral pulses Gastrointestinal: normal bowel sounds, soft, non-tender Back: normal inspection, normal range of motion Extremities: normal inspection, normal capillary refill, normal range of motion Neurologic/Psych: no motor/sensory deficits, awake, alert, oriented x 3, normal mood/affect Skin: intact, normal color, warm/dry Core Measures ACS in differential dx? No CVA/TIA Diagnosis: No Severe Sepsis Present: No Septic Shock Present: No Progress Differential Diagnoses I considered the following diagnoses in my evaluation of the patient: [UTI, alcohol withdrawal] Plan of Care: Orders Procedure Date/time Status CIWA 12/04 0701 Active EKG 12/04 07 Active URINALYSIS 12/04 0651 Active ETHANOL 12/04 0650 Complete COMPREHENSIVE METABOLIC PANEL 12/04 0650 Complete CBC WITHOUT DIFFERENTIAL 12/04 0650 Complete Laboratory Tests 12/04/16 0920: Anion Gap 9, Estimated GFR 34 L, BUN/Creatinine Ratio 17.0, Glucose 130 H, Calcium 9.0, Total Bilirubin 0.5, AST 18, ALT 25, Alkaline Phosphatase 89, Total Protein 6.1 L, Albumin 3.4 L, Globulin 2.7, Albumin/Globulin Ratio 1.3, CBC w Diff MAN DIFF ORDERED, RBC 3.09 L, MCV 92.4, MCH 31.8 H, RDW 16.0 H, MPV 7.4, Gran % 87.6 H, Lymphocytes % 6.7 L, Monocytes % 5.4, Eosinophils % 0.1, Basophils % 0.2, Absolute Granulocytes 6.3, Segmented Neutrophils 87 H, Absolute Lymphocytes 0.5 L, Lymphocytes 8 L, Monocytes 4, Absolute Monocytes 0.4, Absolute Eosinophils 0, Absolute Basophils 0, Metamyelocytes 1, Platelet Estimate VERIFIED BY SMEAR, Polychromasia 1+, Poikilocytosis 1+, Anisocytosis 1+ , Ovalocytes 1+, PUBS MCHC 34.4, Serum Alcohol < 10.0 Initial ED EKG: none Departure Departure Disposition: HOME OR SELF CARE Condition: Stable Clinical Impression Primary Impression: UTI (urinary tract infection) Secondary Impressions: Alcohol abuse Referrals: JUANA SIMONS MD (PCP/Family) Additional Instructions: YOU NEED TO CALL THE REHAB FACILITIES TO SEE IF YOU CAN GO FOR ALCOHOL REHAB TAKE THE ANTIBIOTICS PRESCRIBED FOR YOUR URINARY INFECTION Departure Forms: Customer Survey General Discharge Information Prescriptions: Current Visit Scripts Amoxicillin 1 CAP PO TID #30 CAP Critical Care Note Critical Care Note Critical Care Time: non-applicable
[2016-12-04 09:42] LABS: ABSOLUTE BASOPHIL COUNT 0 /CUMM (0.0-0.2); ABSOLUTE EOSINOPHIL COUNT 0 /CUMM (0.0-0.7); ABSOLUTE GRANULOCYTE CT 6.3 /CUMM (1.4-6.5); ABSOLUTE LYMPH COUNT 0.5 /CUMM (1.2-3.4); ABSOLUTE MONOCYTE COUNT 0.4 /CUMM (0.10-0.60); BASOPHIL % 0.2 % (0.0-2.0); EOSINOPHIL % 0.1 % (0-5); GRANULOCYTE % 87.6 % (42.2-75.2); HEMATOCRIT 28.6 % (42-52); MEAN CORPUSCULAR HGB 31.8 PG (27.0-31.0); MEAN CORPUSCULAR HGB CONC 34.4 G/DL (33.0-37.0); MEAN CORPUSCULAR VOLUME 92.4 FL (80.0-94.0); MEAN PLATELET VOLUME 7.4 FL (7.4-10.4); RED BLOOD CELL CT 3.09 /CUMM (4.70-6.10); WHITE BLOOD CELL COUNT 7.2 /CUMM (4.8-10.8)
[2016-12-04 09:56] LABS: PLATELET COUNT 268 /CUMM (130-400)
[2016-12-04] MEDS ORDERED: AMOXICILLIN250 M3 PO (11:42)
[2016-12-04 11:50] VITALS: BP 188/98
[2016-12-05] MEDS ORDERED: CEFUROXIME500 MG PO (04:38)
[2016-12-05] MEDS ORDERED: FLOMAX0.4 M1 PO (09:27)
== END 2016-12-04 12:09 ==
LOC: ERH 06:30
PROVIDERS: Emergency Medicine
DX: N39.0 Urinary tract infection, site not specified (principal); F10.10 Alcohol abuse, uncomplicated
CPT/HCPCS: 93005; 93010; G0480

== ENCOUNTER 2016-12-05 01:13 | Emergency (ER) | payer OTHER, MEDICARE ==
[~2016-12-05 01:13] MED LIST changes: +AMOXICILLIN250 M3 PO
--- NOTE | 2016-12-05 01:21 | ED GI/GU/ABDOMINAL COMPLAINT ---
History of Present Illness General Chief Complaint: Abdominal Pain/Flank Pain Stated Complaint: BIBA ABD PAIN, DX W/ UTI HERE THIS AM Source: patient, EMS Exam Limitations: no limitations Vital Signs & Intake/Output Vital Signs & Intake/Output Vital Signs Date Time Temp Pulse Resp B/P B/P Pulse O2 O2 Flow FiO2 Mean Ox Delivery Rate 12/05 0817 79 190/120 12/05 0822 96.5 12/05 0806 190/120 12/05 0725 96.5 79 20 190/111 98 Room Air 12/05 0615 97.9 82 22 152/88 96 12/05 0118 96.9 79 24 166/104 96 Room Air Triage Note: TRIAGE: BIBA FROM HOME, SEEN HERE EARLIER TODAY, PER EMS PATIENT REPORTING 02/02 DIFFUSE ABD PAIN, DX W/ UTI EARLIER TODAY. PATIENT ALSO REPORTS HX ETOH ABUSE, "HAVE NOT HAD A DRINK TODAY." PATIENT REFUSING IV ACCESS PREHOSP PER EMS. Triage Nurses Notes Reviewed? yes Onset: Gradual Duration: day(s): Timing: recent history Quality/Severity: moderate Location: suprapubic Radiation: no radiation Activities at Onset: none Modifying Factors: Worsens With: urinating. Associated Symptoms: dysuria HPI: 66 yo gentleman presents with suprapubic tenderness and discomfort with urination for the past several days. He notes, "It hurts to urinate." He notes no fever, chills, nausea, vomiting, diarrhea. He is otherwise well. (RAE ARCEO,LEE Hadley) Allergies Coded Allergies: NO KNOWN ALLERGIES (UNKNOWN 12/05/16) Reconcile Medications Albuterol Sulfate (Ventolin Hfa) 90 MCG HFA.AER.AD 2 PUF INH Q4-6 PRN PRN COPD (Reported) Amlodipine Besylate 5 MG TABLET 1 TAB PO DAILY Blood pressure . Amoxicillin 250 MG CAPSULE 1 CAP PO TID URINE INFECTION Apixaban (Eliquis) 5 MG TABLET 1 TAB PO BID AFIB (Reported) Aspirin (Ecotrin*) 81 MG TABLET.DR 1 TAB PO DAILY HEART/BLOOD (Reported) Atorvastatin Calcium 20 MG TABLET 1 TAB PO DAILY CHOLESTEROL (Reported) Budesonide/Formoterol Fumarate (Symbicort 160-4.5 Mcg Inhaler) 10.2 GM HFA.AER.AD 2 PUF INH BID RESPIRATORY (Reported) Cefuroxime Axetil (Cefuroxime) 500 MG TABLET 1 TAB PO BID uti Duloxetine HCl 60 MG CAPSULE.DR 1 CAP PO QAM depression (Reported) Ferrous Sulfate 325 MG (65 MG IRON) TABLET.DR 325 MG PO DAILY PRN SUPPLEMENT Folic Acid 1 MG TABLET 1 TAB PO DAILY OTHER Gabapentin 300 MG CAPSULE 2 CAP PO TID NERVE PAIN (Reported) Hydralazine HCl 25 MG TABLET 1 TAB PO TID Blood pressure . Insulin Detemir (Levemir) 100 UNIT/ML VIAL 14 UNITS SC DAILY DM (Reported) Metoprolol Succ XL (Toprol XL) 25 MG TAB.ER.24H 1 TAB PO DAILY BP (Reported) Morphine Sulfate (Ms Contin) 100 MG TABLET.ER 15 MG PO Q12 PAIN Multivitamin (One Daily Multivitamin) 1 EACH TABLET 1 TAB PO DAILY SUPPLEMENT Oxycodone HCl 15 MG TABLET 1 TAB PO Q4 PRN Chronic Back Pain (Reported) Polyethylene Glycol 3350 (Miralax) 17 GRAM/DOSE POWDER 17 GM PO DAILY PRN CONSTIPATION Sennosides/Docusate Sodium (Senna Plus Tablet) 8.6 MG-50 MG TABLET 1 TAB PO BID PRN CONSTIPATION Tamsulosin HCl 0.4 MG CAP.ER.24H 1 CAP PO DAILY PROSTATE (Reported) Tamsulosin HCl (Flomax) 0.4 MG CAP.ER.24H 1 CAP PO DAILY KIDNEY STONE Trazodone HCl 150 MG TABLET 1 TAB PO QPM FOR SLEEP/ SEDATION (Reported) (ANTHONY ARCEO,[facility]) Past History Travel History Traveled to [place] past 21 day No Medical History Any Pertinent Medical History? 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 FH: diabetes mellitus FH: stroke FHx: prostate cancer PATERNAL GRANDMOTHER, ; Cause: Colon cancer. MOTHER, , Age 87; Cause: Old age. Hx Contributory? No (RAE ARCEO,LEE Hadley) Review of Systems Review of Systems Constitutional: Reports: no symptoms. EENTM: Reports: no symptoms. Respiratory: Reports: no symptoms. Cardiovascular: Reports: no symptoms. GI: Reports: no symptoms. Genitourinary: Reports: no symptoms. Musculoskeletal: Reports: no symptoms. Skin: Reports: no symptoms. Neurological/Psychological: Reports: no symptoms. Hematologic/Endocrine: Reports: no symptoms. Immunologic/Allergic: Reports: no symptoms. All Other Systems: Reviewed and Negative (RAE ARCEO,LEE Hadley) Physical Exam Physical Exam General Appearance: well developed/nourished, mild distress Head: atraumatic, normal appearance Eyes: Bilateral: normal appearance. Ears, Nose, Throat, Mouth: hearing grossly normal Respiratory: normal breath sounds, chest non-tender, no respiratory distress, quiet respiration, lungs clear Cardiovascular: regular rate/rhythm Gastrointestinal: normal bowel sounds, soft Back: normal inspection, normal range of motion Extremities: normal range of motion Neurologic/Psych: no motor/sensory deficits, awake, alert, oriented x 3 Skin: intact, normal color, warm/dry Core Measures ACS in differential dx? No Severe Sepsis Present: No Septic Shock Present: No (RAE ARCEO,LEE Hadley) Progress Differential Diagnosis: UTI/pyelo, urinary retention vs other. Plan of Care: Orders Procedure Date/time Status Heart Healthy Diet 12/05 B Active CASE MANAGEMENT CONSULT 12/05 0713 Active King, Insertion/Removal/Asses 12/05 0131 Active CULTURE,URINE 12/05 0131 Active ETHANOL 12/05 0130 Complete URINALYSIS 12/05 0122 Complete TROPONIN LEVEL 12/05 0122 Complete LIPASE 12/05 0122 Complete COMPREHENSIVE METABOLIC PANEL 12/05 0122 Complete CBC WITHOUT DIFFERENTIAL 12/05 0122 Complete AMYLASE 12/05 0122 Complete EKG 12/05 0122 Active Current Medications Sig/Avery Start time Last Medication Dose Stop Time Status Admin Amlodipine Besylate 5 MG DAILY 12/05 1000 UNVr 12/05 (Norvas) 0917 Apixaban 5 MG DAILY 12/05 1000 UNVr (Eliquis) Aspirin 81 MG DAILY 12/05 1000 UNVr 12/05 (Aspirin) 0917 Hydralazine HCl 25 MG TID 12/05 1000 UNVr (Apresoline) Metoprolol Succinate 25 MG DAILY 12/05 1000 UNVr (Toprol XL) Morphine Sulfate 15 MG BID 12/05 1000 UNVr 12/05 (Ms Contin) 0917 Oxycodone HCl 15 MG Q4P PRN 12/05 0815 AC (Roxicodone) Gabapentin 600 MG Q8 12/05 0809 UNVr 12/05 (Neurontin) 0834 Cephalexin 500 MG Q6 12/05 0600 UNVr 12/05 (Keflex 500MG Cap) 0614 Acetaminophen 975 MG TID PRN 12/05 0445 AC 12/05 (Tylenol) 0446 Laboratory Tests 12/05/16 0145: Urinalysis LIGHT H, Urine Color YEL, Urine Clarity HAZY H, Urine pH 6.5, Ur Specific [place] 1.015, Urine Protein >=300 H, Urine Ketones NEG, Urine Nitrite NEG, Urine Bilirubin NEG, Urine Urobilinogen 0.2, Ur Leukocyte Esterase SMALL H , Ur Microscopic SEDIMENT EXAMINED, Urine RBC 1-3, Urine WBC 10-15 H, Urine Bacteria FEW H, Urine Mucus RARE, Urine Hemoglobin SMALL H, Urine Glucose NEG 12/05/16 0133: Serum Alcohol Cancelled 12/05/16 0130: Anion Gap 16, Estimated GFR 34 L, BUN/Creatinine Ratio 12.5, Glucose 115 H, Calcium 9.2, Total Bilirubin 0.5, AST 18, ALT 25, Alkaline Phosphatase 83, Troponin I 0.03, Total Protein 6.3, Albumin 3.5, Globulin 2.8, Albumin/Globulin Ratio 1.3, Amylase 56, Lipase 211, CBC w Diff NO MAN DIFF REQ, RBC 3.28 L, MCV 90.8, MCH 31.4 H, RDW 16.4 H, MPV 6.8 L, Gran % 87.2 H, Lymphocytes % 7.8 L , Monocytes % 4.4, Eosinophils % 0.5, Basophils % 0.1, Absolute Granulocytes 6.6 H, Absolute Lymphocytes 0.6 L, Absolute Monocytes 0.3, Absolute Eosinophils 0, Absolute Basophils 0, PUBS MCHC 34.6, Serum Alcohol 84.0 Microbiology 12/05 0145 URINE ROUT: Urine Culture - RECD 12/05/2016 7:25:55 AM Patient signed out to me by Dr. Williamson. Pending case management evaluation. 8 AM CASE MANAGEMENT PAGED. 12/05/2016 9:26:41 AM Patient currently has a bee sting with him at home as well as a few to home care. He states he is at baseline for ambulatory irritation. He is able to transfer from bed to wheelchair. Full catheter in place. Prescription for antibiotics sent to the pharmacy as well as Flomax. (BERTHA CRUZ MD) Diagnostic Imaging: Viewed by Me: CT Scan. Discussed w/RAD: CT Scan. Radiology Impression: abd/pelvic ct... no acute disease... full report below. Initial ED EKG: normal axis, normal intervals, normal p-waves, normal QRS complex, normal sinus rhythm Hand-Off Endorsed To: BERTHA CRUZ MD Endorsed Time: 0700 Comments: PATIENT: BRANDYN BORDEN PRESENT AGE: 66 PATIENT ACCOUNT NO: [id number] : 51 LOCATION: [facility] ORDERING PHYSICIAN: LEE WILLIAMSON MD SERVICE DATE: 12/05/16 EXAM TYPE: CAT - CT ABD & PELVIS W/O IV CONTRAS EXAMINATION: CT ABDOMEN AND PELVIS WITHOUT CONTRAST CLINICAL INFORMATION: Suprapubic pain COMPARISON: 11/01/2016 TECHNIQUE: Multidetector volumetric imaging was performed from the superior aspect of the liver through the pubic symphysis. Sagittal and coronal reformatted images were obtained on the technologist's workstation. DLP: 582.49 mGy-cm FINDINGS: LUNG BASES: The visualized lung bases are essentially clear. LIVER, GALLBLADDER, AND BILIARY TREE: The liver is enlarged. No focal hepatic lesion or biliary ductal dilatation is present. The gallbladder is unremarkable with no evidence of radiopaque gallstones, gallbladder wall thickening, or obvious pericholecystic inflammatory changes. PANCREAS: Partially atrophic. SPLEEN: Unremarkable. ADRENAL GLANDS: Unremarkable. KIDNEYS AND URETERS: The kidneys are normal in size, shape, and attenuation. Bilateral low-density renal lesions are again demonstrated, favoring cysts. No hydronephrosis, hydroureter, or calculi seen. No perinephric stranding. BLADDER: Decompressed with a King catheter and not adequately evaluated. GASTROINTESTINAL TRACT: No evidence of bowel obstruction. A rectosigmoid suture line is noted. No significant bowel wall thickening is seen. No free fluid or free air is seen. ABDOMINAL WALL: There are redemonstrated ventral hernias. The upper hernia contains a short segment of transverse colon, and the lower hernia containing a short segment of small bowel. Overall appearance is similar to prior. LYMPH NODES: Normal. VASCULAR: There is atherosclerotic calcification along the aorta. PELVIC VISCERA: Unremarkable. OSSEOUS STRUCTURES: Unremarkable. IMPRESSION: 1. No acute findings identified in the abdomen/pelvis. 2. Urinary bladder is collapsed, with a King catheter in place. 3. Redemonstrated abdominal wall hernias containing segments of bowel; no evidence of obstruction. DICTATED BY: BESSY OSORIO MD DATE/TIME DICTATED:12/05/16219 MANAGER BEAUTY:JENELLE DATE/TIME TRANSCRIBED:12/05/16219 CONFIDENTIAL, DO NOT COPY WITHOUT APPROPRIATE AUTHORIZATION. <Electronically signed in Other Vendor System> SIGNED BY: BESSY OSORIO MD 12/05/16 0234 (RAE ARCEO,LEE Hadley) Departure Departure Disposition: HOME OR SELF CARE Condition: Stable Clinical Impression Primary Impression: Urinary tract infection Secondary Impressions: Urinary retention Departure Forms: Customer Survey General Discharge Information Comments pt drained more than 1000cc of urine from king... lives home, alone... pt merits case management evaluation for possible short term rehab. (RAE ARCEO,LEE Hadley) Departure Time of Disposition: 929 Referrals: JUANA SIMONS MD (PCP/Family) REFUGIO COPE MD Additional Instructions: TAKE THE CEFUROXIME AND FLOMAX DIRECTED. FOLLOW UP WITH YOUR UROLOGIST OR THE ONE LISTED ON YOUR DISCHARGE PAPERS. RETURN IF WORSE. Prescriptions: Current Visit Scripts Tamsulosin HCl (Flomax) 1 CAP PO DAILY #14 CAP Cefuroxime Axetil (Cefuroxime) 1 TAB PO BID #20 TAB (ANTHONY ARCEO,BERTHA)
[2016-12-05 01:39] LABS: MEAN PLATELET VOLUME 6.8 FL (7.4-10.4); RBC DISTRIBUTION WIDTH 16.4 % (11.5-14.5)
[2016-12-05 01:44] LABS: ABSOLUTE BASOPHIL COUNT 0 /CUMM (0.0-0.2); ABSOLUTE EOSINOPHIL COUNT 0 /CUMM (0.0-0.7); ABSOLUTE GRANULOCYTE CT 6.6 /CUMM (1.4-6.5); ABSOLUTE LYMPH COUNT 0.6 /CUMM (1.2-3.4); ABSOLUTE MONOCYTE COUNT 0.3 /CUMM (0.10-0.60); BASOPHIL % 0.1 % (0.0-2.0); EOSINOPHIL % 0.5 % (0-5); GRANULOCYTE % 87.2 % (42.2-75.2); HEMATOCRIT 29.8 % (42-52); MEAN CORPUSCULAR HGB 31.4 PG (27.0-31.0); MEAN CORPUSCULAR HGB CONC 34.6 G/DL (33.0-37.0); MEAN CORPUSCULAR VOLUME 90.8 FL (80.0-94.0); PLATELET COUNT 271 /CUMM (130-400); RED BLOOD CELL CT 3.28 /CUMM (4.70-6.10); WHITE BLOOD CELL COUNT 7.6 /CUMM (4.8-10.8)
--- NOTE | 2016-12-05 02:34 | CT SCAN REPORT ---
EXAMINATION: CT ABDOMEN AND PELVIS WITHOUT CONTRAST CLINICAL INFORMATION: Suprapubic pain COMPARISON: 11/01/2016 TECHNIQUE: Multidetector volumetric imaging was performed from the superior aspect of the liver through the pubic symphysis. Sagittal and coronal reformatted images were obtained on the technologist's workstation. DLP: 582.49 mGy-cm FINDINGS: LUNG BASES: The visualized lung bases are essentially clear. LIVER, GALLBLADDER, AND BILIARY TREE: The liver is enlarged. No focal hepatic lesion or biliary ductal dilatation is present. The gallbladder is unremarkable with no evidence of radiopaque gallstones, gallbladder wall thickening, or obvious pericholecystic inflammatory changes. PANCREAS: Partially atrophic. SPLEEN: Unremarkable. ADRENAL GLANDS: Unremarkable. KIDNEYS AND URETERS: The kidneys are normal in size, shape, and attenuation. Bilateral low-density renal lesions are again demonstrated, favoring cysts. No hydronephrosis, hydroureter, or calculi seen. No perinephric stranding. BLADDER: Decompressed with a Kaiser catheter and not adequately evaluated. GASTROINTESTINAL TRACT: No evidence of bowel obstruction. A rectosigmoid suture line is noted. No significant bowel wall thickening is seen. No free fluid or free air is seen. ABDOMINAL WALL: There are redemonstrated ventral hernias. The upper hernia contains a short segment of transverse colon, and the lower hernia containing a short segment of small bowel. Overall appearance is similar to prior. LYMPH NODES: Normal. VASCULAR: There is atherosclerotic calcification along the aorta. PELVIC VISCERA: Unremarkable. OSSEOUS STRUCTURES: Unremarkable. IMPRESSION: 1. No acute findings identified in the abdomen/pelvis. 2. Urinary bladder is collapsed, with a Kaiser catheter in place. 3. Redemonstrated abdominal wall hernias containing segments of bowel; no evidence of obstruction.
[2016-12-05] MEDS ORDERED: CEFUROXIME500 MG PO (04:38)
[2016-12-05] MEDS ORDERED: FLOMAX0.4 M1 PO (09:27)
[2016-12-05 10:03] VITALS: BP 188/106
== END 2016-12-05 10:07 ==
LOC: ERH 01:13
PROVIDERS: Pediatrics
DX: N39.0 Urinary tract infection, site not specified (principal); R33.9 Retention of urine, unspecified; I10 Essential (primary) hypertension; I50.9 Heart failure, unspecified; I48.91 Unspecified atrial fibrillation
CPT/HCPCS: 74176; 81001; 86920; 86922; 87086; 93005; 93010; G0480; J3490

== ENCOUNTER 2016-12-05 12:39 | Emergency (ER) | payer OTHER, MEDICARE ==
[~2016-12-05] VITALS: Ht 180.3 cm; Wt 95.3 kg
[~2016-12-05 12:39] MED LIST changes: +CEFUROXIME500 MG PO; +FLOMAX0.4 M1 PO
[2016-12-05 12:40] VITALS: BP 142/92
--- NOTE | 2016-12-05 12:42 | ED GI/GU/ABDOMINAL COMPLAINT ---
History of Present Illness General Chief Complaint: General Adult Stated Complaint: BIBA BLOOD IN DUVALL Source: patient, old records, EMS Exam Limitations: no limitations Vital Signs & Intake/Output Vital Signs & Intake/Output Vital Signs Date Time Temp Pulse Resp B/P B/P Pulse O2 O2 Flow FiO2 Mean Ox Delivery Rate 12/05 1302 98 Room Air 12/05 1240 98.9 74 20 142/92 97 Room Air Allergies Coded Allergies: NO KNOWN ALLERGIES (UNKNOWN 12/05/16) Reconcile Medications Albuterol Sulfate (Ventolin Hfa) 90 MCG HFA.AER.AD 2 PUF INH Q4-6 PRN PRN COPD (Reported) Amlodipine Besylate 5 MG TABLET 1 TAB PO DAILY Blood pressure . Amoxicillin 250 MG CAPSULE 1 CAP PO TID URINE INFECTION Apixaban (Eliquis) 5 MG TABLET 1 TAB PO BID AFIB (Reported) Aspirin (Ecotrin*) 81 MG TABLET.DR 1 TAB PO DAILY HEART/BLOOD (Reported) Atorvastatin Calcium 20 MG TABLET 1 TAB PO DAILY CHOLESTEROL (Reported) Budesonide/Formoterol Fumarate (Symbicort 160-4.5 Mcg Inhaler) 10.2 GM HFA.AER.AD 2 PUF INH BID RESPIRATORY (Reported) Cefuroxime Axetil (Cefuroxime) 500 MG TABLET 1 TAB PO BID uti Duloxetine HCl 60 MG CAPSULE.DR 1 CAP PO QAM depression (Reported) Ferrous Sulfate 325 MG (65 MG IRON) TABLET.DR 325 MG PO DAILY PRN SUPPLEMENT Folic Acid 1 MG TABLET 1 TAB PO DAILY OTHER Gabapentin 300 MG CAPSULE 2 CAP PO TID NERVE PAIN (Reported) Hydralazine HCl 25 MG TABLET 1 TAB PO TID Blood pressure . Insulin Detemir (Levemir) 100 UNIT/ML VIAL 14 UNITS SC DAILY DM (Reported) Metoprolol Succ XL (Toprol XL) 25 MG TAB.ER.24H 1 TAB PO DAILY BP (Reported) Morphine Sulfate (Ms Contin) 100 MG TABLET.ER 15 MG PO Q12 PAIN Multivitamin (One Daily Multivitamin) 1 EACH TABLET 1 TAB PO DAILY SUPPLEMENT Oxycodone HCl 15 MG TABLET 1 TAB PO Q4 PRN Chronic Back Pain (Reported) Polyethylene Glycol 3350 (Miralax) 17 GRAM/DOSE POWDER 17 GM PO DAILY PRN CONSTIPATION Sennosides/Docusate Sodium (Senna Plus Tablet) 8.6 MG-50 MG TABLET 1 TAB PO BID PRN CONSTIPATION Tamsulosin HCl 0.4 MG CAP.ER.24H 1 CAP PO DAILY PROSTATE (Reported) Tamsulosin HCl (Flomax) 0.4 MG CAP.ER.24H 1 CAP PO DAILY KIDNEY STONE Trazodone HCl 150 MG TABLET 1 TAB PO QPM FOR SLEEP/ SEDATION (Reported) Triage Nurses Notes Reviewed? yes Onset: Abrupt Duration: day(s): (2) Timing: single episode today Location: urethral No Modifying Factors: none HPI: This is a 66-year-old male with history significant for alcohol abuse, chronic coronary artery disease, A. fib on Eliquis who presents from home for chief complaint of persistent hematuria. He was just discharged from the emergency department earlier after urinary retention. Duvall catheter was placed patient had hematuria. He states he did brief episode of sharp pain and then passed a clot and since then has been pain-free but called EMS. Patient was evaluated by case management prior to discharge. He has home health care and was due to follow up with urology. Past History Medical History Any Pertinent Medical History? see below for history Neurological: delerium tremens, seizure Cardiovascular: AFIB, CHF, hypertension, mitral regurgitation, Staph aureus endocarditis Respiratory: COPD Gastrointestinal: GERD, Diarrhea, nausea Hepatic: hepatitis C Renal: chronic kidney disease Musculoskeletal: degen joint disease, CHRONIC BACK PAIN R FOOT NONHEALING WOUND Psychiatric: alcohol dependence, anxiety Endocrine: diabetes Blood Disorders: anemia, Waldenstrohm's macroglobulinemia Cancer(s): colon/rectal cancer (operated), prostate cancer (treated), WALDENSTROM LYMPHOMA TRANSIT MAN/Reproductive: NONE History of MRSA: Yes History of VRE: No History of CDIFF: No Surgical History Surgical History: colon resection, MITRAL VALVE REPAIR left ankle surgery/ arthrodesis Psychosocial History Who do you live with Brother Services at Home None What is your primary language New Zealander Family History Family History, If Any: FATHER, , Age 87; Cause: Prostate CA. FH: diabetes mellitus FH: stroke FHx: prostate cancer PATERNAL GRANDMOTHER, ; Cause: Colon cancer. MOTHER, , Age 87; Cause: Old age. Hx Contributory? No Review of Systems Review of Systems Constitutional: Reports: weakness. Denies: chills, fever. EENTM: Reports: no symptoms. Respiratory: Denies: short of breath. Cardiovascular: Denies: chest pain. GI: Denies: abdominal pain. Genitourinary: Reports: no symptoms. Musculoskeletal: Reports: no symptoms. Skin: Reports: no symptoms. Neurological/Psychological: Reports: no symptoms. Hematologic/Endocrine: Reports: bleeding. Denies: bruising. Immunologic/Allergic: Reports: no symptoms. All Other Systems: Reviewed and Negative Physical Exam Physical Exam General Appearance: well developed/nourished, alert, awake, mild distress, obese Head: atraumatic, normal appearance Eyes: Bilateral: PERRL. Ears, Nose, Throat, Mouth: hearing grossly normal, moist mucous membrane Neck: normal inspection, supple, full range of motion Respiratory: normal breath sounds, chest non-tender, no respiratory distress Cardiovascular: regular rate/rhythm Peripheral Pulses: 2+ radial (R), 2+ radial (L) Gastrointestinal: soft, non-tender, OBESE Male Genitals: normal genitalia, DRAINING DUVALL CATHETER Neurologic/Psych: awake, alert, oriented x 3 Skin: intact, normal color, pallor Core Measures ACS in differential dx? No Severe Sepsis Present: No Septic Shock Present: No Progress Differential Diagnosis: urinary retention, UTI/pyelo, HEMATURIA, ANEMIA Plan of Care: Orders Procedure Date/time Status Consistent Carbohydrate 3 12/05 D Active CBC WITHOUT DIFFERENTIAL 12/05 1242 Complete TYPE & SCREEN (NOT X-MATCH) 12/05 1242 Active Laboratory Tests 12/05/16 1252: CBC w Diff MAN DIFF ORDERED, RBC 3.50 L, MCV 92.7, MCH 31.6 H, RDW 15.9 H, MPV 6.9 L, Gran % 84.2 H, Lymphocytes % 7.2 L, Monocytes % 8.2, Eosinophils % 0.2, Basophils % 0.2, Absolute Granulocytes 8.6 H, Absolute Lymphocytes 0.7 L, Absolute Monocytes 0.8 H, Absolute Eosinophils 0, Absolute Basophils 0, Platelet Estimate ADEQUATE, Hypochromic-Microcytic 1+, Anisocytosis 1+, PUBS MCHC 34.1 H/H STABLE FROM THIS MORNING. DUVALL ACTIVELY DRAINING WITHOUT CLOTS. D/W CASE MANAGMENT. PATIENT HAS [facility] INVOLVED ON HIS CASE AND THEY WILL BE OUT TO THE HOUSE TOMORROW. PATIENT INSTRUCTED TO CALL DR GONSALES FOR FOLLOW UP TOMORROW. (ANTHONY ARCEO,BERTHA) Initial ED EKG: none Departure Departure Time of Disposition: 1341 Disposition: HOME OR SELF CARE Condition: Stable Clinical Impression Primary Impression: Hematuria Secondary Impressions: Duvall catheter in place Referrals: JUAN ARCEO,EN SIMONS MD,JUANA (PCP/Family) Additional Instructions: AGAIN, PLEASE FOLLOW UP WITH DR GONSALES IN THE OFFICE REGARDING YOUR DUVALL CATHETER. CONTINUE THE ANTIBIOTICS AND FLOMAX. RETURN IF WORSE Departure Forms: Customer Survey General Discharge Information
[2016-12-05 13:11] LABS: ABSOLUTE BASOPHIL COUNT 0 /CUMM (0.0-0.2); ABSOLUTE EOSINOPHIL COUNT 0 /CUMM (0.0-0.7); ABSOLUTE GRANULOCYTE CT 8.6 /CUMM (1.4-6.5); ABSOLUTE LYMPH COUNT 0.7 /CUMM (1.2-3.4); ABSOLUTE MONOCYTE COUNT 0.8 /CUMM (0.10-0.60); BASOPHIL % 0.2 % (0.0-2.0); EOSINOPHIL % 0.2 % (0-5); GRANULOCYTE % 84.2 % (42.2-75.2); HEMATOCRIT 32.4 % (42-52); MEAN CORPUSCULAR HGB 31.6 PG (27.0-31.0); MEAN CORPUSCULAR HGB CONC 34.1 G/DL (33.0-37.0); MEAN CORPUSCULAR VOLUME 92.7 FL (80.0-94.0); MEAN PLATELET VOLUME 6.9 FL (7.4-10.4); PLATELET COUNT 289 /CUMM (130-400); RBC DISTRIBUTION WIDTH 15.9 % (11.5-14.5); WHITE BLOOD CELL COUNT 10.2 /CUMM (4.8-10.8)
== END 2016-12-05 14:19 ==
LOC: ERH 12:39
PROVIDERS: Emergency Medicine
DX: R31.9 Hematuria, unspecified (principal)
CPT/HCPCS: 86920; 86922

== ENCOUNTER 2017-01-01 22:37 | Emergency (ER) | payer OTHER, MEDICARE ==
[~2017-01-01] VITALS: Ht 180.3 cm; Wt 95.3 kg
--- NOTE | 2017-01-01 22:47 | ED GI/GU/ABDOMINAL COMPLAINT ---
History of Present Illness General Chief Complaint: Male Genitourinary Problems Stated Complaint: CLOGGED DUVALL Source: patient Exam Limitations: no limitations Vital Signs & Intake/Output Vital Signs & Intake/Output Vital Signs Date Time Temp Pulse Resp B/P B/P Pulse O2 O2 Flow FiO2 Mean Ox Delivery Rate 01/01 2325 98.6 75 18 125/702 99 Room Air 01/01 2247 99.0 76 19 127/72 99 Room Air ED Intake and Output 01/02 0000 01/01 1200 Intake Total Output Total 250 Balance -250 Output, Urine 250 Patient 210 lb Weight Weight Reported by Patient Measurement Method Allergies Coded Allergies: NO KNOWN ALLERGIES (UNKNOWN 12/05/16) Reconcile Medications Albuterol Sulfate (Ventolin Hfa) 90 MCG HFA.AER.AD 2 PUF INH Q4-6 PRN PRN COPD (Reported) Amlodipine Besylate 5 MG TABLET 1 TAB PO DAILY Blood pressure . Apixaban (Eliquis) 5 MG TABLET 1 TAB PO BID AFIB (Reported) Aspirin (Ecotrin*) 81 MG TABLET.DR 1 TAB PO DAILY HEART/BLOOD (Reported) Atorvastatin Calcium 20 MG TABLET 1 TAB PO DAILY CHOLESTEROL (Reported) Budesonide/Formoterol Fumarate (Symbicort 160-4.5 Mcg Inhaler) 10.2 GM HFA.AER.AD 2 PUF INH BID RESPIRATORY (Reported) Duloxetine HCl 60 MG CAPSULE.DR 1 CAP PO QAM depression (Reported) Ferrous Sulfate 325 MG (65 MG IRON) TABLET.DR 325 MG PO DAILY PRN SUPPLEMENT Folic Acid 1 MG TABLET 1 TAB PO DAILY OTHER Gabapentin 300 MG CAPSULE 2 CAP PO TID NERVE PAIN (Reported) Hydralazine HCl 25 MG TABLET 1 TAB PO TID Blood pressure . Insulin Detemir (Levemir) 100 UNIT/ML VIAL 14 UNITS SC DAILY DM (Reported) Metoprolol Succ XL (Toprol XL) 25 MG TAB.ER.24H 1 TAB PO DAILY BP (Reported) Morphine Sulfate (Ms Contin) 100 MG TABLET.ER 15 MG PO Q12 PAIN Multivitamin (One Daily Multivitamin) 1 EACH TABLET 1 TAB PO DAILY SUPPLEMENT Oxycodone HCl 15 MG TABLET 1 TAB PO Q4 PRN Chronic Back Pain (Reported) Polyethylene Glycol 3350 (Miralax) 17 GRAM/DOSE POWDER 17 GM PO DAILY PRN CONSTIPATION Sennosides/Docusate Sodium (Senna Plus Tablet) 8.6 MG-50 MG TABLET 1 TAB PO BID PRN CONSTIPATION Tamsulosin HCl 0.4 MG CAP.ER.24H 1 CAP PO DAILY PROSTATE (Reported) Trazodone HCl 150 MG TABLET 1 TAB PO QPM FOR SLEEP/ SEDATION (Reported) Triage Note: 66 Y/O MALE BIBA FROM HOME FOR ?? DUVALL CLOGGED. PT ARRIVES A/O X3 AND DENIES ANY OTHER CONCERNS. MD MCBRIDE AT BEDSIDE TO RUBIN PT Triage Nurses Notes Reviewed? yes Onset: Gradual Duration: hour(s): Timing: recent history Quality/Severity: cramping Location: suprapubic Radiation: no radiation Activities at Onset: none Modifying Factors: Worsens With: other ("duvall was clogged"). Associated Symptoms: hematuria HPI: 66 yo gentleman presents with a question of his duvall being clogged. "I was here a few days ago and had my duvall flushed... I need some flushes in case the bleeding starts up again..... I thought my duvall was clogged and then I flushed my duvall myself and it seems to be okay now." No fevers, chills, dysuria, abdominal pain. He is otherwise well. Past History Medical History Any Pertinent Medical History? 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 FH: diabetes mellitus FH: stroke FHx: prostate cancer PATERNAL GRANDMOTHER, ; Cause: Colon cancer. MOTHER, , Age 87; Cause: Old age. Hx Contributory? No Review of Systems Review of Systems Constitutional: Reports: no symptoms. EENTM: Reports: no symptoms. Respiratory: Reports: no symptoms. Cardiovascular: Reports: no symptoms. GI: Reports: no symptoms. Genitourinary: Reports: no symptoms. Musculoskeletal: Reports: no symptoms. Skin: Reports: no symptoms. Neurological/Psychological: Reports: no symptoms. Hematologic/Endocrine: Reports: no symptoms. Immunologic/Allergic: Reports: no symptoms. All Other Systems: Reviewed and Negative Physical Exam Physical Exam General Appearance: well developed/nourished, no apparent distress, alert, awake , comfortable Head: atraumatic, normal appearance Eyes: Bilateral: normal appearance. Ears, Nose, Throat, Mouth: hearing grossly normal Neck: normal inspection, supple, full range of motion, normal alignment Respiratory: normal breath sounds, chest non-tender, no respiratory distress, quiet respiration, lungs clear Cardiovascular: regular rate/rhythm Gastrointestinal: normal bowel sounds, soft, non-tender, no organomegaly Male Genitals: duvall in place with clear red blood mixed with clear urine in duvall tubing. Back: normal inspection Extremities: normal range of motion Neurologic/Psych: no motor/sensory deficits, awake, alert, oriented x 3 Skin: intact, normal color, warm/dry Core Measures ACS in differential dx? No Severe Sepsis Present: No Septic Shock Present: No Progress Differential Diagnosis: duvall issues vs other. Plan of Care: see below. Initial ED EKG: none Departure Departure Disposition: HOME OR SELF CARE Condition: Stable Clinical Impression Primary Impression: Duvall catheter problem Referrals: JUANA SIMONS MD (PCP/Family) Departure Forms: Customer Survey General Discharge Information Comments upon arrival duvall appeared to be draining well.... duvall flushed without problem... pt safe for discharge. Close follow up advised. Pt also given flushes.
[2017-01-01 23:25] VITALS: BP 125/702
== END 2017-01-01 23:33 ==
LOC: ERH 22:37
DX: T83.098A Other mechanical complication of other urinary catheter, initial encounter (principal)

== ENCOUNTER 2017-01-03 04:45 | Emergency (ER) | payer OTHER, MEDICARE ==
[~2017-01-03] VITALS: Ht 180.3 cm; Wt 95.3 kg
--- NOTE | 2017-01-03 04:52 | ED GI/GU/ABDOMINAL COMPLAINT ---
History of Present Illness General Chief Complaint: Male Genitourinary Problems Stated Complaint: BIBA FOR CLOGGED BENEDICT Source: patient, old records, EMS Exam Limitations: no limitations Vital Signs & Intake/Output Vital Signs & Intake/Output Vital Signs Date Time Temp Pulse Resp B/P B/P Pulse O2 O2 Flow FiO2 Mean Ox Delivery Rate 01/03 0457 97.5 98 18 133/87 98 Room Air Allergies Coded Allergies: NO KNOWN ALLERGIES (UNKNOWN 12/05/16) Reconcile Medications Albuterol Sulfate (Ventolin Hfa) 90 MCG HFA.AER.AD 2 PUF INH Q4-6 PRN PRN COPD (Reported) Amlodipine Besylate 5 MG TABLET 1 TAB PO DAILY Blood pressure . Apixaban (Eliquis) 5 MG TABLET 1 TAB PO BID AFIB (Reported) Aspirin (Ecotrin*) 81 MG TABLET.DR 1 TAB PO DAILY HEART/BLOOD (Reported) Atorvastatin Calcium 20 MG TABLET 1 TAB PO DAILY CHOLESTEROL (Reported) Budesonide/Formoterol Fumarate (Symbicort 160-4.5 Mcg Inhaler) 10.2 GM HFA.AER.AD 2 PUF INH BID RESPIRATORY (Reported) Duloxetine HCl 60 MG CAPSULE.DR 1 CAP PO QAM depression (Reported) Ferrous Sulfate 325 MG (65 MG IRON) TABLET.DR 325 MG PO DAILY PRN SUPPLEMENT Folic Acid 1 MG TABLET 1 TAB PO DAILY OTHER Gabapentin 300 MG CAPSULE 2 CAP PO TID NERVE PAIN (Reported) Hydralazine HCl 25 MG TABLET 1 TAB PO TID Blood pressure . Insulin Detemir (Levemir) 100 UNIT/ML VIAL 14 UNITS SC DAILY DM (Reported) Metoprolol Succ XL (Toprol XL) 25 MG TAB.ER.24H 1 TAB PO DAILY BP (Reported) Morphine Sulfate (Ms Contin) 100 MG TABLET.ER 15 MG PO Q12 PAIN Multivitamin (One Daily Multivitamin) 1 EACH TABLET 1 TAB PO DAILY SUPPLEMENT Oxycodone HCl 15 MG TABLET 1 TAB PO Q4 PRN Chronic Back Pain (Reported) Polyethylene Glycol 3350 (Miralax) 17 GRAM/DOSE POWDER 17 GM PO DAILY PRN CONSTIPATION Sennosides/Docusate Sodium (Senna Plus Tablet) 8.6 MG-50 MG TABLET 1 TAB PO BID PRN CONSTIPATION Tamsulosin HCl 0.4 MG CAP.ER.24H 1 CAP PO DAILY PROSTATE (Reported) Trazodone HCl 150 MG TABLET 1 TAB PO QPM FOR SLEEP/ SEDATION (Reported) Triage Note: PT BIBA. PT STATES HE HAD A CYST REMOVED FROM BLADDER MONTHS AGO AND A URINARY BENEDICT WAS PLACED. PT HAS COMPLAINTS OF HIS BENEDICT NOW DRAINING CLEARER URINE THAN NORMAL. DRAINAGE APPEARS LIGHT RED IN COLOR. Triage Nurses Notes Reviewed? yes Onset: Abrupt Duration: hour(s): (1) Timing: single episode today Quality/Severity: moderate, severe Location: suprapubic Modifying Factors: Improves With: coughing. HPI: 66-year-old male presents by EMS from home for chief complaint of clogged Benedict catheter. He states he was trying to clear it at home and could not. On the way to the hospital in the ambulance he states that he coughed and dislodged clot and now it is draining clear. No fever or chills. He has a home visiting nurse. Past History Travel History Traveled to [place] past 21 day No Medical History Any Pertinent Medical History? 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 FH: diabetes mellitus FH: stroke FHx: prostate cancer PATERNAL GRANDMOTHER, ; Cause: Colon cancer. MOTHER, , Age 87; Cause: Old age. Hx Contributory? No Review of Systems Review of Systems Constitutional: Denies: chills, fever. EENTM: Reports: no symptoms. Respiratory: Reports: no symptoms. Cardiovascular: Reports: no symptoms. GI: Reports: no symptoms. Genitourinary: Reports: see HPI, hematuria, hesitation. Musculoskeletal: Reports: no symptoms. Skin: Reports: no symptoms. Neurological/Psychological: Reports: anxiety. Hematologic/Endocrine: Reports: bleeding. Immunologic/Allergic: Reports: no symptoms. All Other Systems: Reviewed and Negative Physical Exam Physical Exam General Appearance: alert, awake, anxious, mild distress Head: atraumatic, normal appearance Eyes: Bilateral: PERRL. Ears, Nose, Throat, Mouth: hearing grossly normal, moist mucous membrane Neck: normal inspection, full range of motion Respiratory: normal breath sounds, chest non-tender, no respiratory distress Cardiovascular: regular rate/rhythm Gastrointestinal: soft, tenderness (SUPRAPUBIC) Extremities: normal range of motion Neurologic/Psych: awake, alert, oriented x 3 Skin: pallor Core Measures ACS in differential dx? No Severe Sepsis Present: No Septic Shock Present: No Progress Differential Diagnosis: HEMATURIA, CLOGGED Benedict CATHETER Plan of Care: BENEDICT IRRIGATED WITHOUT DIFFICULTY. Initial ED EKG: none Departure Departure Time of Disposition: 05 Disposition: HOME OR SELF CARE Condition: Stable Clinical Impression Primary Impression: Benedict catheter problem Referrals: JUANA SIMONS MD (PCP/Family) Departure Forms: Customer Survey General Discharge Information
[2017-01-03 06:58] VITALS: BP 148/72
== END 2017-01-03 07:57 ==
LOC: ERH 04:45
DX: T83.098A Other mechanical complication of other urinary catheter, initial encounter (principal)

== ENCOUNTER 2017-08-25 12:00 | Emergency (ER) | payer OTHER, MEDICARE ==
[~2017-08-25] VITALS: Ht 180.3 cm; Wt 107.5 kg
[~2017-08-25 12:00] MED LIST changes: +ACETAMINOPHEN650 M3 PO; +GUAIFENESI100 MG/5 M PO; +LASIX40 M1 PO; +LEVEMIR FL100 UNIT/1 SC; +MELATONIN5 M7 PO; +NICOTINE PATCH1 EAC3 TOP; +NORVASC10 M1 PO; +NOVOLOG100 UNIT/2 SC; +SERTRALINE HCL50 MG PO; +TRAZODONE HCL100 M1 PO
[2017-08-25] MEDS ORDERED: FLOMAX0.4 M1 PO (12:13)
[2017-08-25] MEDS ORDERED: TRAZODONE HCL50 M1 PO (12:14)
[2017-08-25] MEDS ORDERED: IPRAT-ALBUT 0.5-3 ML PO (12:15)
[2017-08-25] MEDS ORDERED: OMEPRAZOLE20 M2 PO (12:16)
[2017-08-25] MEDS ORDERED: FUROSEMIDE20 M1 PO (12:18)
--- NOTE | 2017-08-25 12:18 | ED GENERAL ADULT ---
See Addendum History of Present Illness General Chief Complaint: General Adult Stated Complaint: BIBA LOW H&H Source: patient, EMS, W10 Exam Limitations: no limitations Vital Signs & Intake/Output Vital Signs & Intake/Output Vital Signs Date Time Temp Pulse Resp B/P B/P Pulse O2 O2 Flow FiO2 Mean Ox Delivery Rate 08/25 1900 98.0 68 18 134/78 97 Nasal 2.0L Cannula 08/25 1840 97.6 72 20 126/61 97 Nasal 2.0L Cannula 08/25 1807 96.0 71 22 133/82 95 Nasal 2.0L Cannula / 1532 98.1 64 20 117/72 96 Nasal 2.0L Cannula / 1408 97.2 68 17 102/70 94 Nasal 2.0L Cannula / 1201 97.1 88 20 109/61 98 Room Air Allergies Coded Allergies: NO KNOWN ALLERGIES (UNKNOWN 12/05/16) Reconcile Medications Albuterol Sulfate (Ventolin Hfa) 90 MCG HFA.AER.AD 2 PUF INH Q4-6 PRN PRN COPD Amlodipine Besylate (Norvasc) 10 MG TABLET 1 TAB PO DAILY Blood Pressure Apixaban (Eliquis) 5 MG TABLET 1 TAB PO BID afib Aspirin (Ecotrin*) 81 MG TABLET.DR 1 TAB PO DAILY HEART/BLOOD Atorvastatin Calcium 20 MG TABLET 1 TAB PO DAILY CHOLESTEROL Budesonide/Formoterol Fumarate (Symbicort 160-4.5 Mcg Inhaler) 160 MCG-4.5 MCG/ ACTUATION HFA.AER.AD 2 PUF INH BID COPD Ferrous Sulfate 325 MG (65 MG IRON) TABLET 1 TAB PO DAILY IRON, VITAMIN ( Reported) Folic Acid 1 MG TABLET 1 TAB PO DAILY supplementation Furosemide 20 MG TABLET 1 TAB PO DAILY WATER RETENTION (Reported) Gabapentin 300 MG CAPSULE 2 CAP PO TID NERVE PAIN Hydralazine HCl 25 MG TABLET 1 TAB PO TID Blood pressure Insulin Detemir (Levemir Flextouch) 100 UNIT/ML (3 ML) INSULN.PEN 20 UNITS SC DAILY DIABETES (Reported) Ipratropium/Albuterol Sulfate (Iprat-Albut 0.5-3(2.5) MG/3 Ml) 0.5 MG-3 MG (2.5 MG BASE)/3 ML AMPUL.NEB 1 INH PO BID BREATHING PROBLEMS (Reported) Metoprolol Succ XL (Toprol XL) 25 MG TAB 1 TAB PO DAILY HEART (Reported) Omeprazole 20 MG CAPSULE.DR 1 CAP PO DAILY GI (Reported) Sertraline HCl 50 MG TABLET 1 TAB PO 0800 depression/anxiety Tamsulosin HCl (Flomax) 0.4 MG CAP.ER.24H 1 CAP PO 1700 PROSTATE (Reported) Thiamine HCl (Vitamin B-1) 100 MG TABLET 1 TAB PO DAILY supplementation Trazodone HCl 50 MG TABLET 0.25 TAB PO QPM SLEEP (Reported) Trazodone HCl 100 MG TABLET 1 TAB PO 2200 insomnia Triage Nurses Notes Reviewed? yes Onset: Gradual Duration: day(s): HPI: 67yoM w/ hx of GIB, EtOH dependence, Ethan, AFib, CHF, Seizures, colon CA, prostate CA, chronic back pain presenting here BIBA for low H/H. Patient was found to have a H/H of 7.1/21.9 and was sent to the infusion center for transfusion of 2U PRBC. They were unable to get IV access and so patient was sent here. Patient's current sx are general weakness and mild SOB. ([facility] STUDENTEriberto) Past History Travel History Traveled to [place] past 21 day No Medical History Any Pertinent Medical History? 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 FH: diabetes mellitus FH: stroke FHx: prostate cancer PATERNAL GRANDMOTHER, ; Cause: Colon cancer. MOTHER, , Age 87; Cause: Old age. Hx Contributory? Yes (Eriberto Workman) Review of Systems Review of Systems Constitutional: Reports: see HPI, weakness. EENTM: Reports: no symptoms. Respiratory: Reports: no symptoms. Cardiovascular: Reports: no symptoms. GI: Reports: no symptoms. Genitourinary: Reports: no symptoms. Musculoskeletal: Reports: no symptoms. Skin: Reports: no symptoms. (Eriberto Workman) Physical Exam Physical Exam General Appearance: well developed/nourished, alert, awake, comfortable Head: atraumatic Eyes: Bilateral: normal appearance, PERRL. Ears, Nose, Throat: normal pharynx, normal ENT inspection Neck: normal inspection, supple Respiratory: normal breath sounds Cardiovascular: irregularly irregular Peripheral Pulses: 1+ radial (R), 1+ radial (L) Gastrointestinal: normal bowel sounds Rectal: deferred Neurologic/Psych: awake, alert Core Measures ACS in differential dx? No CVA/TIA Diagnosis: No Sepsis Present: No Sepsis Focused Exam Completed? No (Eriberto Workman) Progress Differential Diagnoses I considered the following diagnoses in my evaluation of the patient: [Anemia of chronic disease, difficult IV line access, GIB, hypotension] Plan of Care: Orders Procedure Date/time Status Regular Diet 08/26 B Active BLOOD PRODUCT PICKUP 08/25 1753 Active TYPE & SCREEN (NOT X-MATCH) 08/25 1636 Active LEUKOCYTE POOR (PACKED CELLS) 08/25 1546 Active Patient with hx of GIB on Apixaban w/ Hgb of 7.1; currently reporting general weakness, but no other symptoms. Plan is for IV access and then infusion. 1:45PM Several attempts for IV access unsuccesful. Patient to go the IR suite for a PICC line and return for PRBC transfusion 3:50 Patient back with a PICC line. Will be transfused 2U PRBC. Will return to fpc w/ PICC line for possible further blood resuscitation if needed in the next coming days. (Eriberto Workman) Initial ED EKG: none (Rajan ARCEO,Jonathan Gao) Departure Departure Condition: Stable Referrals: Maida Bellamy MD (PCP/Family) Departure Forms: Customer Survey General Discharge Information (Eriberto Workman) Departure Disposition: ACUTE REHAB FACILITY Clinical Impression Primary Impression: Anemia Resident Co-Sign Statement Statement: ED Attending supervision documentation- [X] I saw and evaluated the patient. I have also reviewed all the pertinent lab results and diagnostic results. I agree with the findings and the plan of care as documented in the Resident's documentation. [X] I have reviewed the ED Record and agree with the Resident's documentation. [] Additions or exceptions (if any) to the Resident's note and plan are summarized below: [Patient was sent to the infusion center this morning for a transfusion. They were unable to obtain IV access. Patient was discharged back to his fpc within the fpc sent to the emergency department for evaluation.] (Rajan ARCEO,Jonathan Gao) Critical Care Note Critical Care Note Critical Care Time: non-applicable (aRjan ARCEO,Jonathan Gao)
[2017-08-25] MEDS ORDERED: FERROUS SULFAT325 M3 PO (12:19)
--- NOTE | 2017-08-25 16:14 | ULTRASOUND REPORT ---
Examination: PICC line Clinical history: 67-year-old male with poor venous access. Infusion required. Request made for PICC line. Interventional radiologist: Arvind Ferrari M.D. Anesthesia: 1% local lidocaine. FLUOROSCOPY TIME: 0.4 minutes DOSE AREA PRODUCT: 2.4 Gy-cm2 (dunne-centimeter squared) Procedure in Detail: Informed consent was obtained from the patient prior to the procedure. During this process, the procedure and potential alternatives were explained along with the intended outcome and benefits. The risks of the procedure including the possibility of an unsuccessful procedure, as well as the risk of not doing the procedure were discussed. The patient was given the opportunity to ask questions regarding the procedure and appeared competent to make decisions. A signed consent form which documents this discussion was placed in the medical record. Following informed consent the patient was placed supine on the fluoroscopic table. The right upper extremity was prepped and draped in usual sterile fashion. All elements of maximal sterile barrier technique were followed including use of cap, mask, sterile gown, sterile gloves, a sterile full body drape and hand hygiene. The skin was prepared with 2% chlorhexidine for cutaneous antisepsis and sterile ultrasound preparation with sterile gel and probe cover was performed when applicable. A time out procedure was performed. Real-time ultrasound was performed to obtained venous mapping and vascular access assessment. Using standard interventional, sterile and Seldinger technique a micro-stick system was utilized to enter into the right upper extremity brachial vein. A wire was introduced. The wire was introduced down into the inferior vena cava to confirm the venous position as well. A 44 cm, 5 Albanian, double lumen power PICC was then placed. The tip of the catheter was placed into the superior vena cava. Fluoroscopic imaging confirmed the position of the catheter. The PICC line was secured into position. A sterile dressing was placed over the site. The patient tolerated the procedure well and was discharged from the department in good condition with instructions. Complications: None. ULTRASOUND-GUIDED VASCULAR ACCESS: Ultrasound was used to identify the right brachial vein. The right brachial vein was confirmed to be patent. Real time imaging confirmed needle access into the right brachial vein. An image was saved for permanent recording in PACS. IMPRESSION: Successful ultrasound and fluoroscopically guided right upper extremity PICC line placement
[2017-08-25 22:07] VITALS: BP 135/78
[2017-08-26] MEDS ORDERED: PAIN RELIEF325 MG PO (15:59)
[2017-08-26] MEDS ORDERED: ACEPHEN650 M1 PR (16:00)
[2017-08-26] MEDS ORDERED: MILK OF MA400 MG/52 PO (16:00)
[2017-08-26] MEDS ORDERED: DULCOLAX10 M1 RC (16:01)
[2017-08-26] MEDS ORDERED: FLEET ENEMA133 ML RC (16:02)
[2017-08-26] MEDS ORDERED: PROAIR HFA8.5 GM INH (16:03)
== END 2017-08-25 22:45 ==
LOC: ERH 12:00
DX: D64.9 Anemia, unspecified (principal)
CPT/HCPCS: 77001; 86920; 86922; 96372; C1769; J1642; P9016

== ENCOUNTER 2017-08-26 11:56 | Inpatient (IN) | payer OTHER, MEDICARE ==
[~2017-08-26] VITALS: Ht 180.3 cm; Wt 104.4 kg
[~2017-08-26 11:56] MED LIST changes: +FERROUS SULFAT325 M3 PO; +IPRAT-ALBUT 0.5-3 ML PO; +TRAZODONE HCL50 M1 PO
--- NOTE | 2017-08-26 12:14 | ED DYSPNEA/ASTHMA COMPLAINT ---
History of Present Illness General Chief Complaint: Dyspnea (COPD, CHF, Other) Stated Complaint: BIBA FOR EVAL OF SOB Source: patient, old records Exam Limitations: no limitations Allergies Coded Allergies: NO KNOWN ALLERGIES (UNKNOWN 12/05/16) Triage Note: BIBA FROM [facility] WITH C/O SOB, PT GIVEN NEB TREATMENTS X 2, AND LASIX 20MG WITH GOOD EFFECT. PER W-10 UNABLE TO OBTAIN O2 SATS 85%, SENT IN FOR EVAL. PT ARRIVES TO ED AWAKE, ALERT, ANSWERS QUESTIONS APPROPRIATELY ON ARRIVAL. Triage Nurses Notes Reviewed? yes Onset: Gradual Duration: hour(s): Timing: recent history Severity: moderate HPI: 67YO MALE with hx of COPD, CHF, afib, DM, CKD, anemia BIBA to ED from [facility] for dyspnea worsening this morning. Patient reports history of dyspnea for years however states that acute worsening this morning while at rest. Patient was seen and evaluated here yesterday and required a blood transfusion for anemia. Patient had 2 units transfused and was discharged home to rehabilitation facility. In route to hospital patient was given 2 nebulizer treatments and 20 mg IV lasix, O2 sat in 80's and requiring supplemental O2, patient not on home oxygen. Patient also reports recent increase in swelling to right lower leg. Patient complains of right shoulder pain, worse with movement for the past 3 days. Patient had no injury to this shoulder. Patient denies chest pain, abdominal pain, fevers, chills, vomiting. (Madelin OBREGON,Analia Araujo) Vital Signs & Intake/Output Vital Signs & Intake/Output Vital Signs Date Time Temp Pulse Resp B/P B/P Pulse O2 O2 Flow FiO2 Mean Ox Delivery Rate 08/26 1416 98.7 78 22 149/72 95 Nasal 4.0L Cannula 08/26 1250 Nasal 3.0L Cannula 08/26 1226 92 Nasal 4.0L Cannula 08/26 1207 97.6 80 24 143/93 96 Nasal 4.0L Cannula Reconcile Medications Acetaminophen (Pain Relief) 325 MG TABLET 2 TAB PO Q4H PRN PAIN/TEMP/>101 ( Reported) Acetaminophen (Acephen) 650 MG SUPP.RECT 1 SUPP NM Q4H PRN PAIN/TEMP>101 ( Reported) Albuterol Sulfate (Proair Hfa) 90 MCG HFA.AER.AD 2 PUFF INH Q6H PRN RESP. ( Reported) Amlodipine Besylate (Norvasc) 10 MG TABLET 1 TAB PO DAILY Blood Pressure Apixaban (Eliquis) 5 MG TABLET 1 TAB PO BID afib Aspirin (Ecotrin*) 81 MG TABLET.DR 1 TAB PO DAILY HEART/BLOOD Bisacodyl (Dulcolax) 10 MG SUPP.RECT 1 SUP RC DAILY PRN CONSTIPATION ( Reported) Budesonide/Formoterol Fumarate (Symbicort 160-4.5 Mcg Inhaler) 160 MCG-4.5 MCG/ ACTUATION HFA.AER.AD 2 PUF INH BID COPD Ferrous Sulfate 325 MG (65 MG IRON) TABLET 1 TAB PO DAILY IRON, VITAMIN ( Reported) Folic Acid 1 MG TABLET 1 TAB PO DAILY supplementation Furosemide 20 MG TABLET 1 TAB PO DAILY WATER RETENTION (Reported) Gabapentin 300 MG CAPSULE 2 CAP PO TID NERVE PAIN Hydralazine HCl 25 MG TABLET 1 TAB PO TID Blood pressure Insulin Detemir (Levemir Flextouch) 100 UNIT/ML (3 ML) INSULN.PEN 20 UNITS SC DAILY DIABETES (Reported) Ipratropium/Albuterol Sulfate (Iprat-Albut 0.5-3(2.5) MG/3 Ml) 0.5 MG-3 MG (2.5 MG BASE)/3 ML AMPUL.NEB 1 INH PO BID BREATHING PROBLEMS (Reported) Magnesium Hydroxide (Milk Of Magnesia) 400 MG/5 ML ORAL.SUSP 30 ML PO DAILY PRN NO BM IN 3 DAYS (Reported) Metoprolol Succ XL (Toprol XL) 25 MG TAB 1 TAB PO DAILY HEART (Reported) Na Phos,M-B/Na Phos,Di-Ba (Fleet Enema) 19 GRAM-7 GRAM/118 ML ENEMA 1 E RC DAILY PRN CONSTIPATION (Reported) Omeprazole 20 MG CAPSULE.DR 1 CAP PO DAILY GI (Reported) Sertraline HCl 50 MG TABLET 1 TAB PO 0800 depression/anxiety Tamsulosin HCl (Flomax) 0.4 MG CAP.ER.24H 1 CAP PO 1700 PROSTATE (Reported) Thiamine HCl (Vitamin B-1) 100 MG TABLET 1 TAB PO DAILY supplementation Trazodone HCl 50 MG TABLET 0.25 TAB PO QPM SLEEP (Reported) Trazodone HCl 100 MG TABLET 1 TAB PO 2200 insomnia (Laura ARCEO,Robert Ventura) Past History Travel History Traveled to [place] past 21 day No Medical History Any Pertinent Medical History? 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 FH: diabetes mellitus FH: stroke FHx: prostate cancer PATERNAL GRANDMOTHER, ; Cause: Colon cancer. MOTHER, , Age 87; Cause: Old age. Hx Contributory? No (Analia Berger) Review of Systems Review of Systems Constitutional: Reports: no symptoms. EENTM: Reports: no symptoms. Respiratory: Reports: see HPI. Cardiovascular: Reports: see HPI. GI: Reports: no symptoms. Genitourinary: Reports: no symptoms. Musculoskeletal: Reports: see HPI. Skin: Reports: no symptoms. Neurological/Psychological: Reports: no symptoms. Hematologic/Endocrine: Reports: see HPI. Immunologic/Allergic: Reports: no symptoms. All Other Systems: Reviewed and Negative (Analia Berger) Physical Exam Physical Exam General Appearance: well developed/nourished, alert, awake Head: atraumatic, normal appearance Eyes: Bilateral: normal appearance. Ears, Nose, Throat: hearing grossly normal Neck: normal inspection, supple, full range of motion Respiratory: bilateral posterior crackles in lung bases, patient appears to have moderate effort to breath, sitting up in stretcher, no grunting and speaking in full sentences Cardiovascular: regular rate/rhythm Peripheral Pulses: 2+ radial (R), 2+ radial (L) Gastrointestinal: normal bowel sounds, soft, non-tender, no organomegaly Extremities: s/p left ampulation below knee 2+ pitting edema of RLL, tenderness to anterior right shoulder Neurologic/Psych: awake, alert, oriented x 3 Skin: intact, normal color, warm/dry Core Measures ACS in differential dx? Yes CVA/TIA Diagnosis No Sepsis Present: No Sepsis Focused Exam Completed? No (Madelin OBREGON,Analia Araujo) Progress Differential Diagnosis: AMI, bronchitis, costochondritis, CHF, COPD, musculoskeletal pain, pulmonary embolism, pneumonia, unstable angina Diagnostic Imaging: Viewed by Me: Radiology Read. Discussed w/RAD: Radiology Read. Radiology Impression: PATIENT: BRANDYN BORDEN PRESENT AGE: 67 PATIENT ACCOUNT NO: [id number] : 51 LOCATION: ER ORDERING PHYSICIAN: Analia OBREGON SERVICE DATE: 08/26/17-1505 EXAM TYPE: RAD - XRY-SHOULDER COMPLETE-RIGHT EXAMINATION: XR SHOULDER, RIGHT CLINICAL INFORMATION : Right shoulder pain. COMPARISON: Chest radiography 08/26/2017. TECHNIQUE: AP external rotation, Grashey, scapular Y, and axillary views of the right shoulder. FINDINGS: No fracture or dislocation. The humeral head appears well aligned with the glenoid. No evidence of significant glenohumeral cartilage space narrowing. No widening of the acromioclavicular joint. Right-sided PICC line noted. Sternotomy wires. IMPRESSION: No radiographic explanation for the patient's right shoulder pain. DICTATED BY: Carlos Bah MD DATE/TIME DICTATED :08/26/171540 PRIMARY CARE NURSE PRACTITIONER:JENELLE DATE/TIME TRANSCRIBED:08/26/171540 CONFIDENTIAL, DO NOT COPY WITHOUT APPROPRIATE AUTHORIZATION. < Electronically signed in Other Vendor System> SIGNED BY: Carlos Bah MD 08/26/17 1551 CXR Impression: PATIENT: BRANDYN BORDEN PRESENT AGE: 67 PATIENT ACCOUNT NO: [id number] : 51 LOCATION: ER ORDERING PHYSICIAN: Analia OBREGON SERVICE DATE: 08/26/17-1223 EXAM TYPE: RAD - XRY- PORTABLE CHEST XRAY EXAMINATION: XR PORTABLE CHEST CLINICAL INFORMATION: 67-year -old man with hypoxia. COMPARISON: 08/16/2017 chest radiograph TECHNIQUE: Portable frontal view of the chest was obtained. FINDINGS: Lung volumes are somewhat low. There is persistent central vascular congestion without evidence of overt failure or focal consolidation. Marked cardiomegaly post median sternotomy is unchanged. There is a new right-sided PICC with the catheter tip terminating over the cavoatrial junction. There are no pleural effusions. IMPRESSION: No convincing radiographic evidence of an acute cardiopulmonary process. DICTATED BY: Lety Velazquez MD DATE/TIME DICTATED:08/26/171321 PRIMARY CARE NURSE PRACTITIONER:JENELLE DATE/TIME TRANSCRIBED:08/26/171321 CONFIDENTIAL, DO NOT COPY WITHOUT APPROPRIATE AUTHORIZATION. <Electronically signed in Other Vendor System> SIGNED BY: Marcus ARCEO,Lety 08/26/17 1328 Initial ED EKG: atrial fibrillation rate 73bpm, nonspecific ST changes Prior EKG: unchanged (08/16/17) (Madelin OBREGON,Analia Araujo) Plan of Care: Orders Procedure Date/time Status Consistent Carbohydrate 1 08/27 B Active RAPID VIRAL INFLUENZA A 08/26 1712 Active Misc Message 08/26 1652 Active ED Holding Orders 08/26 1652 Active Admit to inpatient 08/26 1652 Active Vital Signs 08/26 1652 Active Code Status 08/26 1652 Active Patient Data 08/26 1641 Active Intake & Output 08/26 1453 Active ARTERIAL BLOOD GAS (GEN) 08/26 1448 Complete TROPONIN LEVEL 08/26 1223 Complete PARTIAL THROMBOPLASTIN TIME 08/26 1223 Complete PROTHROMBIN TIME 08/26 1223 Complete COMPREHENSIVE METABOLIC PANEL 08/26 1223 Complete CBC WITHOUT DIFFERENTIAL 08/26 1223 Complete B-TYPE NATRIURETIC PEP (BNP) 08/26 1223 Complete EKG 08/26 1223 Active Laboratory Tests 08/26/17 1500: pH 7.32 L, pCO2 42, pO2 68 L, HCO3 21, ABG O2 Sat (Measured) 92.0 L, P-50 ( Temp Corrected) N, Carboxyhemoglobin 0.7 L, O2 Concentration % 3L, O2 Delivery Method N/C, Phlebotomy Draw Site LEFT RADIAL 08/26/17 1240: Anion Gap 12, Estimated GFR 18 L, BUN/Creatinine Ratio 14.9, Glucose 236 H, Calcium 8.7, Total Bilirubin 0.4, AST 15 L, ALT 23, Alkaline Phosphatase 63, Troponin I < 0.01, Rnz-[id number] Pept 6280 H, Total Protein 5.8 L, Albumin 3.4 L, Globulin 2.4, Albumin/Globulin Ratio 1.4, PT 16.4 H, INR 1.57 H, APTT 40 H, CBC w Diff NO MAN DIFF REQ, RBC 2.88 L, MCV 91.3, MCH 29.0, MCHC 31.8 L , RDW 17.0 H, MPV 7.1 L, Gran % 87.0 H, Lymphocytes % 1.9 L, Monocytes % 10.2 H, Eosinophils % 0.9, Basophils % 0, Absolute Granulocytes 4.6, Absolute Lymphocytes 0.1 L, Absolute Monocytes 0.5, Absolute Eosinophils 0, Absolute Basophils 0 Microbiology 08/26 171 NASOPHARYN: Influenza Virus A & B Rapid Smear - ORD Patient is requiring supplemental oxygen and IV diuresis. He is likely volume overloaded given his recent blood transfusion yesterday. Patient's EKG shows atrial fibrillation without other acute abnormality. Troponin enzyme is negative. Labs show elevated BNP, greater than 6000, was elevated compared to prior study which was in the 4000s. Patient has chronic abnormal kidney function. Patient does have swelling to right lower extremity, cannot obtain chest CTA to rule out pulmonary embolism however possible VQ scan to be obtained tomorrow. ABG shows hypoxia with P O2 at 68. This patient requires admission for CHF/COPD exacerbation, hypoxia, supplemental oxygen, respiratory therapy, possible IV Lasix, possible IV steroids. Discussed patient with case management who agree with full admission. Discussed patient with hospitalist, Dr. Larry, regarding telemetry admission. Dr. Sanchez present to see and evaluate patient. (Madelin OBREGON,Analia Araujo) (Laura ARCEO,Robert Ventura) Departure Departure Disposition: STILL A PATIENT Condition: Stable Clinical Impression Primary Impression: Hypoxia Secondary Impressions: CHF exacerbation, COPD exacerbation Referrals: Madia Bellamy MD (PCP/Family) Departure Forms: Customer Survey General Discharge Information Admission Note Spoke With: Adrian Larry MD Documentation of Exam: Documentation of any treatments & extenuating circumstances including Concerns Regarding Discharge (functional status, medication knowledge or non-compliance, living conditions, etc.) that warrant an admission rather than observation: [ Hypoxia and CHF/COPD exacerbation requiring supplemental oxygen, IV Lasix, possible IV steroids, respiratory therapy treatments, cardiology consult, repeat EKGs, repeat labs, premature discharge would be medically unsafe] (Madelin OBREGON,Analia Araujo) PA/COMPOSING ROOM MACHINIST APPRENTICE Co-Sign Statement Statement: ED Attending supervision documentation- [X] I saw and evaluated the patient. I have also reviewed all the pertinent lab results and diagnostic results. I agree with the findings and the plan of care as documented in the PA's/COMPOSING ROOM MACHINIST APPRENTICE's documentation. Patient presents for evaluation of shortness of breath that began earlier today. He states he had a blood transfusion of 2 units yesterday. Although he is not on renal dialysis he does have known kidney problems. Physical examination reveals scattered wheezes and radials bilaterally likely representing a combination of COPD and CHF. [] I have reviewed the ED Record and agree with the PA's/COMPOSING ROOM MACHINIST APPRENTICE's documentation. [] Additions or exceptions (if any) to the PAs/COMPOSING ROOM MACHINIST APPRENTICE's note and plan are summarized below: [] (Laura ARCEO,Robert Ventura) Critical Care Note Critical Care Note Critical Care Time: 30-74 min (Analia Berger)
[2017-08-26 13:03] LABS: ABSOLUTE BASOPHIL COUNT 0 /CUMM (0.0-0.2); ABSOLUTE EOSINOPHIL COUNT 0 /CUMM (0.0-0.7); ABSOLUTE GRANULOCYTE CT 4.6 /CUMM (1.4-6.5); ABSOLUTE LYMPH COUNT 0.1 /CUMM (1.2-3.4); ABSOLUTE MONOCYTE COUNT 0.5 /CUMM (0.10-0.60); BASOPHIL % 0 % (0.0-2.0); EOSINOPHIL % 0.9 % (0-5); HEMATOCRIT 26.3 % (42-52); MEAN CORPUSCULAR HGB CONC 31.8 G/DL (33.0-37.0); MEAN CORPUSCULAR VOLUME 91.3 FL (80.0-94.0); MEAN PLATELET VOLUME 7.1 FL (7.4-10.4); PLATELET COUNT 155 /CUMM (130-400); RED BLOOD CELL CT 2.88 /CUMM (4.70-6.10); WHITE BLOOD CELL COUNT 5.3 /CUMM (4.8-10.8)
[2017-08-26 13:16] LABS: PT 16.4 SEC (9.4-12.5); PTT 40 SEC (25-37)
--- NOTE | 2017-08-26 13:28 | RADIOLOGY REPORT ---
EXAMINATION: XR PORTABLE CHEST CLINICAL INFORMATION: 67-year-old man with hypoxia. COMPARISON: 08/16/2017 chest radiograph TECHNIQUE: Portable frontal view of the chest was obtained. FINDINGS: Lung volumes are somewhat low. There is persistent central vascular congestion without evidence of overt failure or focal consolidation. Marked cardiomegaly post median sternotomy is unchanged. There is a new right-sided PICC with the catheter tip terminating over the cavoatrial junction. There are no pleural effusions. IMPRESSION: No convincing radiographic evidence of an acute cardiopulmonary process.
--- NOTE | 2017-08-26 15:51 | RADIOLOGY REPORT ---
EXAMINATION: XR SHOULDER, RIGHT CLINICAL INFORMATION: Right shoulder pain. COMPARISON: Chest radiography 08/26/2017. TECHNIQUE: AP external rotation, Grashey, scapular Y, and axillary views of the right shoulder. FINDINGS: No fracture or dislocation. The humeral head appears well aligned with the glenoid. No evidence of significant glenohumeral cartilage space narrowing. No widening of the acromioclavicular joint. Right-sided PICC line noted. Sternotomy wires. IMPRESSION: No radiographic explanation for the patient's right shoulder pain.
[2017-08-26] MEDS ORDERED: PAIN RELIEF325 MG PO (15:59)
[2017-08-26] MEDS ORDERED: MILK OF MA400 MG/52 PO (16:00)
[2017-08-26] MEDS ORDERED: ACEPHEN650 M1 PR (16:00)
[2017-08-26] MEDS ORDERED: DULCOLAX10 M1 RC (16:01)
[2017-08-26] MEDS ORDERED: FLEET ENEMA133 ML RC (16:02)
[2017-08-26] MEDS ORDERED: PROAIR HFA8.5 GM INH (16:03)
--- NOTE | 2017-08-26 16:54 | History & Physical ---
Clara ARCEO,[facility] 08/26/17 3523: General Information and HPI MD Statement: I have seen and personally examined BRANDYN LING and documented this H&P. The patient is a 67 year old M who presented with a patient stated chief complaint of acute dyspnea. Source of Information: patient, family, old records Exam Limitations: no limitations History of Present Illness: Mr Ling is a patient is 67-year-old gentleman with past medical history of delirium tremors, alcoholic abuse with multiple previous admissions for alcohol detox, alcohol withdrawal seizures, hypertension, hyperlipidemia, diabetes on insulin, atrial fibrillation on Eliquis, CAD, mitral regurgitation status post MVR, COPD (not on home oxygen, hepatitis C status post treatment, staph aureus endocarditis, CKD, Waldenstrm's macroglobulinemia, colon/rectal cancer (status post surgery), prostate cancer(status post radiation), BPH and L BLKA ( wheelchair bound). He presented to [facility] on 08/26/2017 complaining of shortness of breath. The patient was recently seen at the emergency department on 08/25/2017 when he presented with a low H&H of 7.1 and 21.9. A PICC line had to be placed and he was transfused 2 units of PRBCs. This morning the patient complained of shortness of breath. His SPO2 was in the low 70s. Oxygen and nebulizer treaments were administered and his oxygen increased to the mid 80s. Despite these measures the patient remained hypoxic promting him to be brouhgt. He was given IV lasis 20 mg and placed on a facemask. Patient also endorsed right shoulder pain. Pelvic pain was rated at an 8 out of 10 in severity. Described as sharp. Patient states that his pain was worse today. He denies any acute trauma or recent injury to the area. At the time of our clinical introduction the patient denied any fever, chills, nausea, vomiting. Patient reports that over the last few weeks he has found that he has been persistently tired and weak. Allergies/Medications Allergies: Coded Allergies: NO KNOWN ALLERGIES (UNKNOWN 12/05/16) Home Med list Acetaminophen (Pain Relief) 325 MG TABLET 2 TAB PO Q4H PRN PAIN/TEMP/>101 ( Reported) Acetaminophen (Acephen) 650 MG SUPP.RECT 1 SUPP TN Q4H PRN PAIN/TEMP>101 ( Reported) Albuterol Sulfate (Proair Hfa) 90 MCG HFA.AER.AD 2 PUFF INH Q6H PRN RESP. ( Reported) Amlodipine Besylate (Norvasc) 10 MG TABLET 1 TAB PO DAILY Blood Pressure Apixaban (Eliquis) 5 MG TABLET 1 TAB PO BID afib Aspirin (Ecotrin*) 81 MG TABLET.DR 1 TAB PO DAILY HEART/BLOOD Bisacodyl (Dulcolax) 10 MG SUPP.RECT 1 SUP RC DAILY PRN CONSTIPATION ( Reported) Budesonide/Formoterol Fumarate (Symbicort 160-4.5 Mcg Inhaler) 160 MCG-4.5 MCG/ ACTUATION HFA.AER.AD 2 PUF INH BID COPD Ferrous Sulfate 325 MG (65 MG IRON) TABLET 1 TAB PO DAILY IRON, VITAMIN ( Reported) Folic Acid 1 MG TABLET 1 TAB PO DAILY supplementation Furosemide 40 MG TABLET 1 TAB PO DAILY CHF Gabapentin 300 MG CAPSULE 2 CAP PO TID NERVE PAIN Hydralazine HCl 25 MG TABLET 1 TAB PO TID Blood pressure Insulin Detemir (Levemir Flextouch) 100 UNIT/ML (3 ML) INSULN.PEN 20 UNITS SC DAILY DIABETES (Reported) Ipratropium/Albuterol Sulfate (Iprat-Albut 0.5-3(2.5) MG/3 Ml) 0.5 MG-3 MG (2.5 MG BASE)/3 ML AMPUL.NEB 1 INH PO BID BREATHING PROBLEMS (Reported) Magnesium Hydroxide (Milk Of Magnesia) 400 MG/5 ML ORAL.SUSP 30 ML PO DAILY PRN NO BM IN 3 DAYS (Reported) Metoprolol Succ XL (Toprol XL) 25 MG TAB 1 TAB PO DAILY HEART (Reported) Na Phos,M-B/Na Phos,Di-Ba (Fleet Enema) 19 GRAM-7 GRAM/118 ML ENEMA 1 E RC DAILY PRN CONSTIPATION (Reported) Nicotine (Nicotine Patch) 14 MG/24 HOUR PATCH.TD24 14 MG TOP DAILY smoking cessation Omeprazole 20 MG CAPSULE.DR 1 CAP PO DAILY GI (Reported) Prednisone 10 MG TABLET 1 TAB PO DAILY COPD exacerbation Sertraline HCl 50 MG TABLET 1 TAB PO 0800 depression/anxiety Tamsulosin HCl (Flomax) 0.4 MG CAP.ER.24H 1 CAP PO 1700 PROSTATE (Reported) Thiamine HCl (Vitamin B-1) 100 MG TABLET 1 TAB PO DAILY supplementation Trazodone HCl 50 MG TABLET 0.25 TAB PO QPM SLEEP (Reported) Trazodone HCl 100 MG TABLET 1 TAB PO 2200 insomnia Compliance With Home Meds: GOOD Past History Travel History Traveled to [place] past 21 day No Medical History Neurological: delerium tremens, seizure EENT: NONE Cardiovascular: AFIB, CHF, hypertension, mitral regurgitation, Staph aureus endocarditis Respiratory: COPD, emphysema Gastrointestinal: GERD, Diarrhea, nausea Hepatic: hepatitis C Renal: chronic kidney disease Musculoskeletal: degen joint disease, CHRONIC BACK PAIN Psychiatric: alcohol dependence, anxiety Endocrine: diabetes Blood Disorders: anemia, Waldenstrohm's macroglobulinemia Cancer(s): colon/rectal cancer (operated), prostate cancer (treated), WALDENSTROM LYMPHOMA ADOPTION SOCIAL WORKER/Reproductive: NONE History of MRSA: Yes History of VRE: No History of CDIFF: No Surgical History Surgical History: colon resection, MITRAL VALVE REPAIR left ankle surgery/ arthrodesis LEFT BKA Past Family/Social History Family History Relations & Conditions if any FATHER, , Age 87; Cause: Prostate CA. FH: diabetes mellitus FH: stroke FHx: prostate cancer PATERNAL GRANDMOTHER, ; Cause: Colon cancer. MOTHER, , Age 87; Cause: Old age. Psychosocial History Where do you live? Long Term Who Do You Live With? self Services at Home: Nursing Primary Language: Liberian Smoking Status: Heavy Tobacco Smoker ETOH Use: alcoholic Illicit Drug Use: denies illicit drug use Functional Ability ADLs Independent: dressing, eating, toileting, bathing. Ambulation: wheelchair IADLs Independent: shopping, housework, finances, food prep, telephone, transportation , medication admin. Review of Systems Review of Systems Constitutional: Reports: see HPI. Denies: chills, diaphoresis, fever, malaise, weakness. Respiratory: Reports: short of breath. Denies: cough, hemoptysis, orthopnea, sputum production, stridor, wheezing. GI: Denies: bloating, constipation, diarrhea, distention. Genitourinary: Denies: discharge, dysuria, frequency, hematuria. Musculoskeletal: Denies: back pain, gout, joint pain, joint swelling. Exam & Diagnostic Data Last 24 Hrs of Vital Signs/I&O Vital Signs Date Time Temp Pulse Resp B/P B/P Pulse O2 O2 Flow FiO2 Mean Ox Delivery Rate 08/26 1842 Nasal 4.0L Cannula 08/26 1834 97.5 87 22 138/70 93 Nasal 4.0L Cannula 08/26 1724 98.4 79 24 139/82 94 Nasal 4.0L Cannula 08/26 1416 98.7 78 22 149/72 95 Nasal 4.0L Cannula 08/26 1250 Nasal 3.0L Cannula 08/26 1226 92 Nasal 4.0L Cannula 08/26 1207 97.6 80 24 143/93 96 Nasal 4.0L Cannula Intake & Output 08/26 1600 08/26 0800 08/26 0000 Intake Total Output Total 550 Balance -550 Output, Urine 550 Patient 107.501 kg Weight Weight Reported by Patient Measurement Method Physical Exam General Appearance Alert, Oriented X3, Cooperative, Mild Distress Skin Picc Line in Place Right Upper Extremity Skin Temp/Moisture Exam: Warm/Dry Sepsis Skin Exam (color): Normal for Ethnicity HEENT Atraumatic, PERRLA, EOMI, Mucous Membr. moist/pink Neck Supple Lymphatic Axillary nl Cardiovascular Regular Rate, Normal S1, Normal S2 Lungs Clear to Auscultation, decreased Breath sounds Bilaterally Abdomen Normal Bowel Sounds, Soft, No Tenderness, Distended abdomen. Hernia Present Neurological Normal Speech, Cranial Nerves 3-12 NL, Strength in UE: 5/5. Strength in RLE : 4/5 Extremities No Clubbing, No Edema, Faint Pulses Left lower extremity , Right Upper Extemity tenderness with movement noted on shoulder abduction. Vascular L BKA. Incision appears to be slightly erythematous with some discharge present Last 24 Hrs of Labs/Manny: Laboratory Tests 08/26/17 2000: Troponin I Pending 08/26/17 1500: pH 7.32 L, pCO2 42, pO2 68 L, HCO3 21, ABG O2 Sat (Measured) 92.0 L, P-50 ( Temp Corrected) N, Carboxyhemoglobin 0.7 L, O2 Concentration % 3L, O2 Delivery Method N/C, Phlebotomy Draw Site LEFT RADIAL 08/26/17 1240: Anion Gap 12, Estimated GFR 18 L, BUN/Creatinine Ratio 14.9, Glucose 236 H, Calcium 8.7, Total Bilirubin 0.4, AST 15 L, ALT 23, Alkaline Phosphatase 63, Troponin I < 0.01, Opt-J-Vsmsytfewhy Pept 6280 H, Total Protein 5.8 L, Albumin 3.4 L, Globulin 2.4, Albumin/Globulin Ratio 1.4, PT 16.4 H, INR 1.57 H, APTT 40 H, CBC w Diff NO MAN DIFF REQ, RBC 2.88 L, MCV 91.3, MCH 29.0, MCHC 31.8 L , RDW 17.0 H, MPV 7.1 L, Gran % 87.0 H, Lymphocytes % 1.9 L, Monocytes % 10.2 H, Eosinophils % 0.9, Basophils % 0, Absolute Granulocytes 4.6, Absolute Lymphocytes 0.1 L, Absolute Monocytes 0.5, Absolute Eosinophils 0, Absolute Basophils 0 Microbiology 08/26 1735 NASOPHARYN: Influenza Virus A & B Rapid Smear - COMP Diagnostic Data CXR Results SERVICE DATE: 08/26/17122 EXAM TYPE: RAD - XRY-PORTABLE CHEST XRAY EXAMINATION: XR PORTABLE CHEST CLINICAL INFORMATION: 67-year-old man with hypoxia. COMPARISON: 08/16/2017 chest radiograph TECHNIQUE: Portable frontal view of the chest was obtained. FINDINGS: Lung volumes are somewhat low. There is persistent central vascular congestion without evidence of overt failure or focal consolidation. Marked cardiomegaly post median sternotomy is unchanged. There is a new right-sided PICC with the catheter tip terminating over the cavoatrial junction. There are no pleural effusions. IMPRESSION: No convincing radiographic evidence of an acute cardiopulmonary process. DICTATED BY: Macrus ARCEO,Lety Other Results SERVICE DATE: 08/26/171505 EXAM TYPE: RAD - XRY-SHOULDER COMPLETE-RIGHT EXAMINATION: XR SHOULDER, RIGHT CLINICAL INFORMATION: Right shoulder pain. COMPARISON: Chest radiography 08/26/2017. TECHNIQUE: AP external rotation, Grashey, scapular Y, and axillary views of the right shoulder. FINDINGS: No fracture or dislocation. The humeral head appears well aligned with the glenoid. No evidence of significant glenohumeral cartilage space narrowing. No widening of the acromioclavicular joint. Right-sided PICC line noted. Sternotomy wires. IMPRESSION: No radiographic explanation for the patient's right shoulder pain. DICTATED BY: Carlos Bah MD Assessment/Plan Assessment: Mr Ling is a patient is 67-year-old gentleman with past medical history of delirium tremors, alcoholic abuse with multiple previous admissions for alcohol detox, alcohol withdrawal seizures, hypertension, hyperlipidemia, diabetes on insulin, atrial fibrillation on Eliquis, CAD, mitral regurgitation status post MVR, COPD (not on home oxygen, hepatitis C status post treatment, staph aureus endocarditis, CKD, Waldenstrm's macroglobulinemia, colon/rectal cancer (status post surgery), prostate cancer(status post radiation), BPH and L BLKA ( wheelchair bound). He presented to [facility] on 08/26/2017 complaining of shortness of breath. His shortness of breath is likely multifactorial in the setting of CHF exacerbation due to recent blood transfusions as well as COPD exacerbations in the setting of continued smoking with a history of COPD. ProBNP elevated to 6280. Patient had to remain maintained on 3 L of oxygen via nasal cannula. Following is the problem list assessment and plan. #Acute hypoxic respiratory failure due to COPD exacerbation and CHF exacerbation. #History of diabetes. #Rule out ACS. #Acute on chronic CK D. #History of depression. Admit the patient to telemetry. Rule out ACS with serial troponins and EKG. Continue IV Lasix 20 mg twice a day. Obtain cardiology consultation on 08/27/2017. Monitor ins and outs and daily weights. May consider echocardiogram. Monitor BEP in a.m. and closely watch renal function. If renal function continues to worsen may consider nephrology consultation in a.m. Begin patient on Solu-Medrol 40 mg every 12. [facility] nebs. Symbicort 2 puffs twice a day. Albuterol 2 puffs every 6 when necessary. Incentive spirometer. Obtain formal pulmonology consultation in a.m. NovoLog insulin coverage and sliding scale 3 times a day at bedtime. Consider Wound Care Consultation in am Continue home medications: Eliquis 5 mg twice a day, trazodone for sleep 100 mg. Omeprazole. Sertraline 50 mg. Amlodipine 10 mg. Gabapentin 600 mg 3 times a day (gabapentin may increase peripheral edema). Metoprolol 25 mg twice a day. Levemir 20 units daily. Smoking cessation. Nicotine patch. Pain pathway with IV and PO tylenol Patient is a full code. Consistent carbohydrate diet. DVT prophylaxis on Eliquis. As Ranked By This Provider Problem List: 1. CHF exacerbation 2. COPD exacerbation 3. Hypoxia 4. Acute on chronic renal failure 5. Chronic pain 6. YVROSE (acute kidney injury) Core Measures/Misc (03/12) Acute Coronary Syndrome ACS Diagnosis: No Congestive Heart Failure Congestive Heart Failure Diagnosis Yes Last Known EF % 65 Cerebrovascular Accident CVA/TIA Diagnosis: No VTE (View Protocol) VTE Risk Factors Age>40 No Mechanical VTE Prophylaxis d/t Other No VTE Pharm Prophylaxis d/t NA PharmProphylax ordered (Eliquis) Sepsis (View protocol) Sepsis Present: No Adrian Larry MD 08/26/17 2240: Attending MD Review Statement Attending Statement Attending MD Statement: examined this patient, discuss w/resident/PA/WINDOWS SERVER SPECIALIST, agreed w/resident/PA/WINDOWS SERVER SPECIALIST, reviewed EMR data (avail), reviewed images, amended to note Attending Assessment/Plan: The patient is a 67 yo male with h/o EtOH and DT's, withdrawal seizures, DM2, afib (on Eliquis), CAD, MR/MVR, COPD, and Hep C (s/p Rx), h/o staph aureus endocarditis, CKD, Colon ca, prostate ca who presented from [facility] with c/o dyspnea. He had also been in the ED 08/25/17 when he presented with H/H 7.1/ 21.9. He had a PICC line placed and received 2 units of PRBCs. The morning of this presentation his oxygen saturation dropped to 70s. He received oxygen therapy by mask and received IV Lasix 20 mg. Physical Exam: VS: T 97.6, P 80, R 22-24, BP 143/92- 138/70, PO 93% 4L (70's off of oxygen) HEENT: eyes- PERRLA, EOMI nina- dry mucosa Neck: no bruits or JVD Chest: diminished breath sounds, possible minimal rales at left base Cor: RRR nl S1, S2 Abd: BS+, non-tender, distended Ext: no edema, s/p left BKA- slight discharge, RLE- tr edema, pulses 1+ Neuro: alert, oriented, non-focal exam- ? diminished sensory in LE. Labs/Tests- as above. Impression/Plan: #Acute Hypoxic Respiratory Failure- patient is not normally on oxygen at home and had relatively sudden malaise and above dyspnea symptoms. Most likely secondary to both some degree of volume overload (received 2 units PRBC yesterday) along with some degree of COPD exacerbation. Plan: Admit to telemetry service. Check serial EKG's, troponin I levels. Will treat with albuterol aerosol, oxygen, 3L nasal at present #Atrial Fibrillation- on Eliquis. Concern regarding recent anemia that has gotten worse. Plan: Will check HR tomorrow. #COPD Exacerbation- as above, some component of this. Plan: Agree with aerosol, IV Medrol given in ED. Consult Dr. Hobbs in morning. #CKD- slight worsening of Cr. Plan: Will follow closely with diuresis. #Chronic Back Pain- fairly stable at present. Plan: Will follow. #Afib/HTN/Staph Endocarditis- has h/o this in past. Plan: Await final oxygen levels,
[2017-08-26 18:34] VITALS: BP 138/70
[2017-08-26 20:00] VITALS: BP 128/80
[2017-08-26 23:00] VITALS: BP 126/82
--- NOTE | 2017-08-26 23:08 | Admission Certification ---
Admission Certification Certification Statement - As attending physician, I certify that at the time of - admission, based on clinical presentation, severity of - symptoms, need for further diagnostic testing and - therapeutic interventions, and risk of adverse outcomes - without in-hospital treatment, in my clinical assessment, - this patient requires an acute hospital stay for a minimum - of two nights or longer. I have also considered psychsocial - factors such as support system, advanced age, financial - issues, cognitive issues, and failed out-patient treatments, - past re-admission history, safety of patient, and lack of - compliance as applicable. Specific rationale supporting this admission is: The patient presents with acute dyspnea and acute on chronic hypoxic respiratory failure, CHF/COPD exacerbation. Needs admisison for close respiratory monitoring , IV Lasix for diuresis, IV Medrol/Aerosol - foc COPD exacerbation. Needs close respiratory monitoring, I/O's, daily weights. Troponin levels. contact printer dry film.
[2017-08-27 05:42] LABS: ABSOLUTE BASOPHIL COUNT 0 /CUMM (0.0-0.2); ABSOLUTE EOSINOPHIL COUNT 0 /CUMM (0.0-0.7); ABSOLUTE GRANULOCYTE CT 4.8 /CUMM (1.4-6.5); ABSOLUTE LYMPH COUNT 0.1 /CUMM (1.2-3.4); ABSOLUTE MONOCYTE COUNT 0.1 /CUMM (0.10-0.60); BASOPHIL % 0 % (0.0-2.0); EOSINOPHIL % 0.1 % (0-5); HEMATOCRIT 25.1 % (42-52); MEAN CORPUSCULAR HGB 29.5 PG (27.0-31.0); MEAN CORPUSCULAR HGB CONC 32.4 G/DL (33.0-37.0); MEAN CORPUSCULAR VOLUME 91.2 FL (80.0-94.0); MEAN PLATELET VOLUME 7.4 FL (7.4-10.4); PLATELET COUNT 144 /CUMM (130-400); RBC DISTRIBUTION WIDTH 17.6 % (11.5-14.5); RED BLOOD CELL CT 2.75 /CUMM (4.70-6.10)
[2017-08-27 06:05] LABS: GRANULOCYTE % 96.2 % (42.2-75.2)
--- NOTE | 2017-08-27 08:40 | PN- Housestaff ---
Sav[place] Peace 08/27/17 0839: Subjective Follow-up For: Acute hypoxic respiratory failure due to COPD exacerbation and CHF exacerbation Subjective: No complaints acute events overnight Review of Systems Constitutional: Reports: see HPI. Objective Last 24 Hrs of Vital Signs/I&O Vital Signs Date Time Temp Pulse Resp B/P B/P Pulse O2 O2 Flow FiO2 Mean Ox Delivery Rate 08/27 1101 Nasal 2.0L Cannula 08/27 0800 Nasal 4.0L Cannula 08/27 0757 73 126/82 08/27 0756 73 126/82 / 0000 Nasal 4.0L Cannula 08/26 2300 98.3 73 20 126/82 91 08/26 2000 98.3 72 20 128/80 08/26 1842 Nasal 4.0L Cannula 08/26 1834 97.5 87 22 138/70 93 Nasal 4.0L Cannula 08/26 1724 98.4 79 24 139/82 94 Nasal 4.0L Cannula Intake & Output 08/27 1600 08/27 0800 08/27 0000 Intake Total 550 2200 211 Output Total 700 450 Balance -150 2200 -239 Intake, IV 11 Intake, Oral 550 2200 200 Output, Urine 700 450 Patient 234 lb 230 lb Weight Weight Bed scale Bed scale Measurement Method Physical Exam General Appearance: Alert, Oriented X3, Cooperative, on 2LNC Cardiovascular: Regular Rate, Normal S1, Normal S2, No Murmurs Lungs: Clear to Auscultation, Normal Air Movement Abdomen: Normal Bowel Sounds, Soft, No Tenderness Extremities: L leg amputation, skin intact Current Medications: Current Medications Sig/Avery Start time Last Medication Dose Route Stop Time Status Admin Acetaminophen 1,000 MG Q8P PRN 08/26 220 AC N/A 1 UNIT IV Acetaminophen 325 MG Q8P PRN 08/26 2200 AC PO Albuterol Sulfate 3 ML BID 08/27 1036 AC 08/27 INH 1038 Albuterol Sulfate 2 PUF Q6H PRN 08/26 1815 AC INH Albuterol Sulfate 3 ML ONCE ONE 08/26 1230 DC 08/26 INH 08/26 1231 1247 Amlodipine Besylate 10 MG DAILY 08/27 1000 AC 08/27 PO 0756 Apixaban 5 MG BID 08/26 2200 AC 08/27 PO 0756 Aspirin Buffered 81 MG DAILY 08/27 1000 AC 03/04 PO 0756 Budesonide/ 2 PUF BID 08/26 2200 AC 08/27 Formoterol Fumarate INH 0757 Folic Acid 1 MG DAILY 08/27 1000 AC 08/27 PO 0757 Furosemide 20 MG 7:30 AM, & 4:30 PM 08/27 0730 AC 08/27 IV 0755 Furosemide 0 .STK-MED ONE 08/26 1237 DC IV Furosemide 20 MG ONCE ONE 08/26 1230 DC 08/26 IV 08/26 1231 1235 Gabapentin 600 MG TID 08/27 1000 AC 08/27 PO 0756 Insulin Detemir 20 UNITS DAILY 08/27 1000 AC 08/27 SC 0755 Ipratropium [place] 2.5 ML BID 08/27 1037 AC 08/27 INH 1038 Methylprednisolone 40 MG Q12 08/26 2200 AC 08/27 IV 0756 Metoprolol Succinate 25 MG DAILY 08/27 1000 AC 08/27 PO 0757 Nicotine 21 MG DAILY 08/26 1830 AC 08/27 TOP 0756 Nitroglycerin 0 .STK-MED ONE 08/26 1237 DC TOP Nitroglycerin 1 GM ONCE ONE 08/26 1230 DC 08/26 TOP 08/26 1231 1235 Omeprazole 20 MG DAILY AC 08/27 0700 AC 08/27 PO 0511 Oxycodone/ 1 TAB ONCE ONE 08/26 2030 DC 08/26 Acetaminophen PO 08/26 Sertraline HCl 50 MG 0800 08/27 0800 AC 08/27 PO 0756 Trazodone HCl 100 MG 2200 08/26 2200 AC 08/26 PO 2122 Last 24 Hrs of Lab/Manny Results Last 24 Hrs of Labs/Mics: Laboratory Tests 08/27/17 0520: Anion Gap 10, Estimated GFR 18 L, BUN/Creatinine Ratio 14.3, CBC w Diff NO MAN DIFF REQ, RBC 2.75 L, MCV 91.2, MCH 29.5, MCHC 32.4 L, RDW 17.6 H, MPV 7.4, Gran % 96.2 H, Lymphocytes % 1.7 L, Monocytes % 2.0, Eosinophils % 0.1, Basophils % 0, Absolute Granulocytes 4.8, Absolute Lymphocytes 0.1 L, Absolute Monocytes 0.1, Absolute Eosinophils 0, Absolute Basophils 0 08/27/17 0210: Troponin I 0.01 08/26/17 2000: Troponin I 0.01 08/26/17 1500: pH 7.32 L, pCO2 42, pO2 68 L, HCO3 21, ABG O2 Sat (Measured) 92.0 L, P-50 ( Temp Corrected) N, Carboxyhemoglobin 0.7 L, O2 Concentration % 3L, O2 Delivery Method N/C, Phlebotomy Draw Site LEFT RADIAL 08/26/17 1240: Anion Gap 12, Estimated GFR 18 L, BUN/Creatinine Ratio 14.9, Glucose 236 H, Calcium 8.7, Total Bilirubin 0.4, AST 15 L, ALT 23, Alkaline Phosphatase 63, Troponin I < 0.01, Ips-[id number]-Tnrpkuyqofz Pept 6280 H, Total Protein 5.8 L, Albumin 3.4 L, Globulin 2.4, Albumin/Globulin Ratio 1.4, PT 16.4 H, INR 1.57 H, APTT 40 H, CBC w Diff NO MAN DIFF REQ, RBC 2.88 L, MCV 91.3, MCH 29.0, MCHC 31.8 L , RDW 17.0 H, MPV 7.1 L, Gran % 87.0 H, Lymphocytes % 1.9 L, Monocytes % 10.2 H, Eosinophils % 0.9, Basophils % 0, Absolute Granulocytes 4.6, Absolute Lymphocytes 0.1 L, Absolute Monocytes 0.5, Absolute Eosinophils 0, Absolute Basophils 0 Microbiology 08/26 1735 NASOPHARYN: Influenza Virus A & B Rapid Smear - COMP Assessment/Plan Assessment: Mr Ling is a patient is 67-year-old gentleman with past medical history of delirium tremors, alcoholic abuse with multiple previous admissions for alcohol detox, alcohol withdrawal seizures, hypertension, hyperlipidemia, diabetes on insulin, atrial fibrillation on Eliquis, CAD, mitral regurgitation status post MVR, COPD (not on home oxygen, hepatitis C status post treatment, staph aureus endocarditis, CKD, Waldenstrm's macroglobulinemia, colon/rectal cancer (status post surgery), prostate cancer(status post radiation), BPH and L BLKA ( wheelchair bound). He presented to [facility] on 08/26/2017 complaining of shortness of breath Problem list: Acute hypoxic respiratory failure due to COPD exacerbation and CHF exacerbation Plan: Cardiology recommendations appreciated Pulmonology recommendations appreciated ECHO October 2016 demonstrated Normal left ventricular ejection fraction visually estimated at >65% Monitor hemoglobin, sodium and renal function Patient currently +2200 fluid balance Continue amlodipine, apixaban, ASA, Lasix 20 mg twice a day, IV methylprednisolone, metoprolol Problem List: 1. COPD exacerbation 2. CHF exacerbation Pain Ratin Pain Location: NA Pain Goal: Remain pain free Pain Plan: NA Tomorrow's Labs & Rationales: BEP for BUNs/Cr, sodium CBC for hemoglobin Adrian Larry MD 08/27/17 1326: Attending MD Review Statement Attending Statement Attending MD Statement: examined this patient, discuss w/resident/PA/FACING CUTTING MACHINE OPERATOR, agreed w/resident/PA/FACING CUTTING MACHINE OPERATOR, reviewed EMR data (avail), amended to note Attending Assessment/Plan: The patient was seen and discussed with house staff and Pulmonary (Dr. Hobbs). The patient may have seen Dr. Block as outpatient in the past (not recent). Breathing has much improved today. Will await Pulmonary and Cardiology input regarding medications. significant improvement in breathing since 08/26.
--- NOTE | 2017-08-27 14:07 | Cons- Pulmonary ---
General Information and HPI Consulting Request Date of Consult: 08/27/17 Requested By: Dr. Larry Reason for Consult: dyspnea Source of Information: patient Exam Limitations: no limitations History of Present Illness: 67-year-old man. Consultation for dyspnea in the setting of underlying emphysema. The patient previously has followed with Dr. Block and wants to continue seeing him as his primary supervisor [place]. The patient has a history of a left BKA, per records Waldenstrom's macroglobulinemia, hx of MVR, history of alcohol dependence, likely underlying KIN/OHS and emphysema. The patient has been treated with Symbicort and nebulizer therapy. He has been in rehabilitation at [facility]. Per the patient he was encouraged to increase his fluid intake he had an echocardiogram performed in 2016 and October. The echo at that time showed moderate right ventricular dilatation and right atrial dilatation. His RV systolic pressure was estimated at 36 mmHg. His EF was 65% at that time. There are no pulmonary function testing on file. He feels much better since admission. His shortness of breath significantly improved. He has no nausea no vomiting no diarrhea no constipation no chest pain. His right leg is swollen however. The patient is improved. He has no leukocytosis. He has a hemoglobin of 8.1. His creatinine is 3.5 which appears to be fluctuating in his baseline between 2 and 4. His x- ray was consistent with a PICC line catheter otherwise no infiltrates are noted other than low lung volumes. Allergies/Medications Allergies: Coded Allergies: NO KNOWN ALLERGIES (UNKNOWN 12/05/16) Home Med List: Acetaminophen (Pain Relief) 325 MG TABLET 2 TAB PO Q4H PRN PAIN/TEMP/>101 ( Reported) Acetaminophen (Acephen) 650 MG SUPP.RECT 1 SUPP [place] Q4H PRN PAIN/TEMP>101 ( Reported) Albuterol Sulfate (Proair Hfa) 90 MCG HFA.AER.AD 2 PUFF INH Q6H PRN RESP. ( Reported) Amlodipine Besylate (Norvasc) 10 MG TABLET 1 TAB PO DAILY Blood Pressure Apixaban (Eliquis) 5 MG TABLET 1 TAB PO BID afib Aspirin (Ecotrin*) 81 MG TABLET.DR 1 TAB PO DAILY HEART/BLOOD Bisacodyl (Dulcolax) 10 MG SUPP.RECT 1 SUP RC DAILY PRN CONSTIPATION ( Reported) Budesonide/Formoterol Fumarate (Symbicort 160-4.5 Mcg Inhaler) 160 MCG-4.5 MCG/ ACTUATION HFA.AER.AD 2 PUF INH BID COPD Ferrous Sulfate 325 MG (65 MG IRON) TABLET 1 TAB PO DAILY IRON, VITAMIN ( Reported) Folic Acid 1 MG TABLET 1 TAB PO DAILY supplementation Furosemide 20 MG TABLET 1 TAB PO DAILY WATER RETENTION (Reported) Gabapentin 300 MG CAPSULE 2 CAP PO TID NERVE PAIN Hydralazine HCl 25 MG TABLET 1 TAB PO TID Blood pressure Insulin Detemir (Levemir Flextouch) 100 UNIT/ML (3 ML) INSULN.PEN 20 UNITS SC DAILY DIABETES (Reported) Ipratropium/Albuterol Sulfate (Iprat-Albut 0.5-3(2.5) MG/3 Ml) 0.5 MG-3 MG (2.5 MG BASE)/3 ML AMPUL.NEB 1 INH PO BID BREATHING PROBLEMS (Reported) Magnesium Hydroxide (Milk Of Magnesia) 400 MG/5 ML ORAL.SUSP 30 ML PO DAILY PRN NO BM IN 3 DAYS (Reported) Metoprolol Succ XL (Toprol XL) 25 MG TAB 1 TAB PO DAILY HEART (Reported) Na Phos,M-B/Na Phos,Di-Ba (Fleet Enema) 19 GRAM-7 GRAM/118 ML ENEMA 1 E RC DAILY PRN CONSTIPATION (Reported) Omeprazole 20 MG CAPSULE.DR 1 CAP PO DAILY GI (Reported) Sertraline HCl 50 MG TABLET 1 TAB PO 0800 depression/anxiety Tamsulosin HCl (Flomax) 0.4 MG CAP.ER.24H 1 CAP PO 1700 PROSTATE (Reported) Thiamine HCl (Vitamin B-1) 100 MG TABLET 1 TAB PO DAILY supplementation Trazodone HCl 50 MG TABLET 0.25 TAB PO QPM SLEEP (Reported) Trazodone HCl 100 MG TABLET 1 TAB PO 2200 insomnia Current Medications: Current Medications Sig/Avery Start time Last Medication Dose Route Stop Time Status Admin Acetaminophen 1,000 MG Q8P PRN 08/26 2200 AC N/A 1 UNIT IV Acetaminophen 325 MG Q8P PRN 08/26 2200 AC PO Albuterol Sulfate 3 ML BID 08/27 1036 AC 08/27 INH 1038 Albuterol Sulfate 2 PUF Q6H PRN 08/26 1815 AC INH Amlodipine Besylate 10 MG DAILY 08/27 1000 AC 08/27 PO 0756 Apixaban 5 MG BID 08/26 2200 AC 08/27 PO 0756 Aspirin Buffered 81 MG DAILY 08/27 1000 AC 08/27 PO 0756 Budesonide/ 2 PUF BID 08/26 2200 AC 08/27 Formoterol Fumarate INH 0757 Folic Acid 1 MG DAILY 08/27 1000 AC 08/27 PO 0757 Furosemide 20 MG 7:30 AM, & 4:30 PM 08/27 0730 AC 08/27 IV 0755 Gabapentin 600 MG TID 08/27 1000 AC 08/27 PO 0756 Insulin Detemir 20 UNITS DAILY 08/27 1000 AC 08/27 SC 0755 Ipratropium [place] 2.5 ML BID 08/27 1037 AC 08/27 INH 1038 Methylprednisolone 40 MG Q12 08/26 2200 AC 08/27 IV 0756 Metoprolol Succinate 25 MG DAILY 08/27 1000 AC 08/27 PO 0757 Nicotine 21 MG DAILY 08/26 1830 AC 08/27 TOP 0756 Omeprazole 20 MG DAILY AC 08/27 0700 AC 08/27 PO 0511 Oxycodone/ 1 TAB ONCE ONE 08/26 2030 DC 08/26 Acetaminophen PO 08/26 Sertraline HCl 50 MG 0800 08/27 0800 AC 08/27 PO 0756 Trazodone HCl 100 MG 2200 08/26 2200 AC 08/26 PO 212 Review of Systems Comments 18 point review of systems was performed and reviewed. Please see pertinent positives and pertinent negatives in the HPI. Otherwise ROS is negative. Past History Travel History Traveled to [place] past 21 day No Medical History Blood Transfusion Hx: Yes Neurological: delerium tremens, seizure EENT: NONE Cardiovascular: AFIB, CHF, hypertension, mitral regurgitation, Staph aureus endocarditis Respiratory: COPD, emphysema Gastrointestinal: GERD, Diarrhea, nausea Hepatic: hepatitis C Renal: chronic kidney disease Musculoskeletal: degen joint disease, CHRONIC BACK PAIN Psychiatric: alcohol dependence, anxiety Endocrine: diabetes Blood Disorders: anemia, Waldenstrohm's macroglobulinemia Cancer(s): colon/rectal cancer (operated), prostate cancer (treated), WALDENSTROM 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 FH: diabetes mellitus FH: stroke FHx: prostate cancer PATERNAL GRANDMOTHER, ; Cause: Colon cancer. MOTHER, , Age 87; Cause: Old age. Psychosocial History Where Do You Live? [place] Who Do You Live With? self Services at Home: Nursing Primary Language: Thai Smoking Status: Heavy Tobacco Smoker ETOH Use: alcoholic Illicit Drug Use: denies illicit drug use Functional Ability ADLs Independent: dressing, eating, toileting, bathing. Ambulation: wheelchair IADLs Independent: shopping, housework, finances, food prep, telephone, transportation , medication admin. Exam & Diagnostic Data Last 24 Hrs of Vital Signs/I&O Vital Signs Date Time Temp Pulse Resp B/P B/P Pulse O2 O2 Flow FiO2 Mean Ox Delivery Rate 08/27 1101 Nasal 2.0L Cannula 08/27 0800 Nasal 4.0L Cannula 08/27 0757 73 126/82 08/27 0756 73 126/82 08/27 0000 Nasal 4.0L Cannula 08/26 2300 98.3 73 20 126/82 91 08/26 2000 98.3 72 20 128/80 08/26 1842 Nasal 4.0L Cannula 08/26 1834 97.5 87 22 138/70 93 Nasal 4.0L Cannula 08/26 1724 98.4 79 24 139/82 94 Nasal 4.0L Cannula 08/26 1416 98.7 78 22 149/72 95 Nasal 4.0L Cannula Intake & Output 08/27 1600 08/27 0800 08/27 0000 Intake Total 2200 211 Output Total 450 Balance 2200 -239 Intake, IV 11 Intake, Oral 2200 200 Output, Urine 450 Patient 234 lb 230 lb Weight Weight Bed scale Bed scale Measurement Method Physical Exam Other Physical Findings: Generally - Awake, alert and comfortable without distress Head and neck - normocephalic, atraumatic, EOMI grossly intact Cardiovascular - S1, S2 Lungs - rare rhonchi Abdomen - Bowel sounds positive, obese Extremities - right LE swollen, left bka Last 48 Hrs of Labs/Manny: Laboratory Tests 08/27/17 0520: Anion Gap 10, Estimated GFR 18 L, BUN/Creatinine Ratio 14.3, CBC w Diff NO MAN DIFF REQ, RBC 2.75 L, MCV 91.2, MCH 29.5, MCHC 32.4 L, RDW 17.6 H, MPV 7.4, Gran % 96.2 H, Lymphocytes % 1.7 L, Monocytes % 2.0, Eosinophils % 0.1, Basophils % 0, Absolute Granulocytes 4.8, Absolute Lymphocytes 0.1 L, Absolute Monocytes 0.1, Absolute Eosinophils 0, Absolute Basophils 0 08/27/17 0210: Troponin I 0.01 08/26/17 2000: Troponin I 0.01 08/26/17 1500: pH 7.32 L, pCO2 42, pO2 68 L, HCO3 21, ABG O2 Sat (Measured) 92.0 L, P-50 ( Temp Corrected) N, Carboxyhemoglobin 0.7 L, O2 Concentration % 3L, O2 Delivery Method N/C, Phlebotomy Draw Site LEFT RADIAL 08/26/17 1240: Anion Gap 12, Estimated GFR 18 L, BUN/Creatinine Ratio 14.9, Glucose 236 H, Calcium 8.7, Total Bilirubin 0.4, AST 15 L, ALT 23, Alkaline Phosphatase 63, Troponin I < 0.01, Can-X-Vuxcbygpzfb Pept 6280 H, Total Protein 5.8 L, Albumin 3.4 L, Globulin 2.4, Albumin/Globulin Ratio 1.4, PT 16.4 H, INR 1.57 H, APTT 40 H, CBC w Diff NO MAN DIFF REQ, RBC 2.88 L, MCV 91.3, MCH 29.0, MCHC 31.8 L , RDW 17.0 H, MPV 7.1 L, Gran % 87.0 H, Lymphocytes % 1.9 L, Monocytes % 10.2 H, Eosinophils % 0.9, Basophils % 0, Absolute Granulocytes 4.6, Absolute Lymphocytes 0.1 L, Absolute Monocytes 0.5, Absolute Eosinophils 0, Absolute Basophils 0 Microbiology 08/26 8155 NASOPHARYN: Influenza Virus A & B Rapid Smear - COMP Assessment/Plan Impression/Plan: Impression 67-year-old man. Consultation for dyspnea in the setting of underlying emphysema. The patient previously has followed with Dr. Block and wants to continue seeing him as his primary supervisor [place]. The patient has a history of a left BKA, history of alcohol dependence, likely underlying KIN/OHS and emphysema. The patient has been treated with Symbicort and nebulizer therapy. He has been in rehabilitation at [facility]. Per the patient he was encouraged to increase his fluid intake he had an echocardiogram performed in 2016 and October. The echo at that time showed moderate right ventricular dilatation and right atrial dilatation. His RV systolic pressure was estimated at 36 mmHg. His EF was 65% at that time. There are no pulmonary function testing on file. He feels much better since admission. His shortness of breath significantly improved. He has no nausea no vomiting no diarrhea no constipation no chest pain. His right leg is swollen however. The patient is improved. He has no leukocytosis. He has a hemoglobin of 8.1. His creatinine is 3.5 which appears to be fluctuating in his baseline between 2 and 4. His x- ray was consistent with a PICC line catheter otherwise no infiltrates are noted other than low lung volumes. * acute hypoxemic respiratory failure - likely underlying COPD exacerbation and likely fluid overload in setting of ?diastolic chf or pulmonary htn * likely underlying kin/ohs Plan -cont solumedrol -f/u cardiology -trc/nebs -ins/outs -consider nephrology consultation -anemia workup per primary team -outpt sleep testing is recommended -will inform Dr. Block to continue following Mr. Ling DVT prophylaxis at all times Consult Acknowledgment - Thank you for your consult request.
[2017-08-27 14:25] VITALS: BP 136/84
--- NOTE | 2017-08-27 20:32 | Cons- Cardiology ---
General Information and HPI Consulting Request Date of Consult: 08/27/17 Requested By: Adrian Larry MD Reason for Consult: Heart failure History of Present Illness: The patient is a 67-year-old male with history of hypertension, diabetes mellitus, chronic kidney disease, mitral regurgitation, and endocarditis. He is status post mitral valve repair in 2010 with a Maze procedure performed at that time. He is also status post left BKA for osteomyelitis. He presents to the [facility] emergency department with complaint of shortness of breath status post transfusion. On 08/25/17 he presented with severe anemia, and he was transfused 2 units of packed red blood cells. The next morning he developed significant shortness of breath with oxygen saturation in the 70s. He presents to the emergency department where he was treated with oxygen and nebulizer. He was treated with IV Lasix for congestive heart failure, along with site Medrol for COPD exacerbation. He notes that his shortness of breath is definitely better today but is not yet back to baseline. He continues to have lower extremity edema. No chest pain. No palpitations. No syncope. No nausea or vomiting. No diaphoresis. Allergies/Medications Allergies: Coded Allergies: NO KNOWN ALLERGIES (UNKNOWN 12/05/16) Home Med List: Acetaminophen (Pain Relief) 325 MG TABLET 2 TAB PO Q4H PRN PAIN/TEMP/>101 ( Reported) Acetaminophen (Acephen) 650 MG SUPP.RECT 1 SUPP [place] Q4H PRN PAIN/TEMP>101 ( Reported) Albuterol Sulfate (Proair Hfa) 90 MCG HFA.AER.AD 2 PUFF INH Q6H PRN RESP. ( Reported) Amlodipine Besylate (Norvasc) 10 MG TABLET 1 TAB PO DAILY Blood Pressure Apixaban (Eliquis) 5 MG TABLET 1 TAB PO BID afib Aspirin (Ecotrin*) 81 MG TABLET.DR 1 TAB PO DAILY HEART/BLOOD Bisacodyl (Dulcolax) 10 MG SUPP.RECT 1 SUP RC DAILY PRN CONSTIPATION ( Reported) Budesonide/Formoterol Fumarate (Symbicort 160-4.5 Mcg Inhaler) 160 MCG-4.5 MCG/ ACTUATION HFA.AER.AD 2 PUF INH BID COPD Ferrous Sulfate 325 MG (65 MG IRON) TABLET 1 TAB PO DAILY IRON, VITAMIN ( Reported) Folic Acid 1 MG TABLET 1 TAB PO DAILY supplementation Furosemide 20 MG TABLET 1 TAB PO DAILY WATER RETENTION (Reported) Gabapentin 300 MG CAPSULE 2 CAP PO TID NERVE PAIN Hydralazine HCl 25 MG TABLET 1 TAB PO TID Blood pressure Insulin Detemir (Levemir Flextouch) 100 UNIT/ML (3 ML) INSULN.PEN 20 UNITS SC DAILY DIABETES (Reported) Ipratropium/Albuterol Sulfate (Iprat-Albut 0.5-3(2.5) MG/3 Ml) 0.5 MG-3 MG (2.5 MG BASE)/3 ML AMPUL.NEB 1 INH PO BID BREATHING PROBLEMS (Reported) Magnesium Hydroxide (Milk Of Magnesia) 400 MG/5 ML ORAL.SUSP 30 ML PO DAILY PRN NO BM IN 3 DAYS (Reported) Metoprolol Succ XL (Toprol XL) 25 MG TAB 1 TAB PO DAILY HEART (Reported) Na Phos,M-B/Na Phos,Di-Ba (Fleet Enema) 19 GRAM-7 GRAM/118 ML ENEMA 1 E RC DAILY PRN CONSTIPATION (Reported) Omeprazole 20 MG CAPSULE.DR 1 CAP PO DAILY GI (Reported) Sertraline HCl 50 MG TABLET 1 TAB PO 0800 depression/anxiety Tamsulosin HCl (Flomax) 0.4 MG CAP.ER.24H 1 CAP PO 1700 PROSTATE (Reported) Thiamine HCl (Vitamin B-1) 100 MG TABLET 1 TAB PO DAILY supplementation Trazodone HCl 50 MG TABLET 0.25 TAB PO QPM SLEEP (Reported) Trazodone HCl 100 MG TABLET 1 TAB PO 2200 insomnia Current Medications: Current Medications Sig/Avery Start time Last Medication Dose Route Stop Time Status Admin Acetaminophen 1,000 MG Q8P PRN 08/26 2200 AC N/A 1 UNIT IV Acetaminophen 325 MG Q8P PRN 08/26 2200 AC PO Albuterol Sulfate 3 ML BID 08/27 1036 AC 08/27 INH 1038 Albuterol Sulfate 2 PUF Q6H PRN 08/26 1815 AC INH Amlodipine Besylate 10 MG DAILY 08/27 1000 AC 08/27 PO 0756 Apixaban 5 MG BID 08/26 2200 AC 08/27 PO 0756 Aspirin Buffered 81 MG DAILY 08/27 1000 AC 08/27 PO 0756 Budesonide/ 2 PUF BID 08/26 2200 AC 08/27 Formoterol Fumarate INH 0757 Folic Acid 1 MG DAILY 08/27 1000 AC 08/27 PO 0757 Furosemide 20 MG 7:30 AM, & 4:30 PM 08/27 0730 AC 08/27 IV 1611 Gabapentin 600 MG TID 08/27 1000 AC 08/27 PO 1611 Insulin Aspart 0 TIDAC 08/27 1700 AC 08/27 SC 1640 Insulin Detemir 20 UNITS DAILY 08/27 1000 AC 08/27 SC 0755 Ipratropium [place] 2.5 ML BID 08/27 1037 AC 08/27 INH 1038 Methylprednisolone 40 MG Q12 08/26 2200 AC 08/27 IV 0756 Metoprolol Succinate 25 MG DAILY 08/27 1000 AC 08/27 PO 0757 Nicotine 21 MG DAILY 08/26 1830 AC 08/27 TOP 0756 Omeprazole 20 MG DAILY AC 08/27 0700 AC 08/27 PO 0511 Sertraline HCl 50 MG 0800 08/27 0800 AC 08/27 PO 0756 Trazodone HCl 100 MG 2200 08/26 2200 AC 08/26 PO 2122 Review of Systems Review of Systems: No rash. No tremor. No melena. No hemoptysis. All other systems were reviewed, and were noted to be negative. Past History Travel History Traveled to [place] past 21 day No Medical History Blood Transfusion Hx: Yes Neurological: delerium tremens, seizure EENT: NONE Cardiovascular: AFIB, CHF, hypertension, mitral regurgitation, Staph aureus endocarditis Respiratory: COPD, emphysema Gastrointestinal: GERD, Diarrhea, nausea Hepatic: hepatitis C Renal: chronic kidney disease Musculoskeletal: degen joint disease, CHRONIC BACK PAIN Psychiatric: alcohol dependence, anxiety Endocrine: diabetes Blood Disorders: anemia, Waldenstrohm's macroglobulinemia Cancer(s): colon/rectal cancer (operated), prostate cancer (treated), WALDENSTROM 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 FH: diabetes mellitus FH: stroke FHx: prostate cancer PATERNAL GRANDMOTHER, ; Cause: Colon cancer. MOTHER, , Age 87; Cause: Old age. Psychosocial History Where Do You Live? [place] Who Do You Live With? self Services at Home: Nursing Primary Language: Kazakh Smoking Status: Heavy Tobacco Smoker ETOH Use: alcoholic Illicit Drug Use: denies illicit drug use Functional Ability ADLs Independent: dressing, eating, toileting, bathing. Ambulation: wheelchair IADLs Independent: shopping, housework, finances, food prep, telephone, transportation , medication admin. Exam & Diagnostic Data Vital Signs and I&O Vital Signs Date Time Temp Pulse Resp B/P B/P Pulse O2 O2 Flow FiO2 Mean Ox Delivery Rate 08/27 1655 79 08/27 1655 94 Nasal 1.0L Cannula 08/27 1425 97.8 77 20 136/84 97 Nasal 2.0L Cannula 08/27 1101 Nasal 2.0L Cannula 08/27 0800 Nasal 4.0L Cannula 08/27 0757 73 126/82 08/27 0756 73 126/82 08/27 0000 Nasal 4.0L Cannula 08/26 2300 98.3 73 20 126/82 91 Intake & Output 08/27 1600 08/27 0800 08/27 0000 08/26 1600 08/26 0800 08/26 0000 Intake Total 550 2200 211 Output Total 700 450 550 Balance -150 2200 -239 -550 Intake, IV 11 Intake, Oral 550 2200 200 Output, Urine 700 450 550 Patient 234 lb 230 lb 237 lb Weight Weight Bed scale Bed scale Reported by Patient Measurement Method Physical Exam: Gen: The patient is in no acute distress HEENT: Normal nose, ears, and oropharynx. Pupils equal bilaterally. Conjunctiva normal. Neck: Supple with no JVD, no masses, and no thyromegaly Lungs: Scattered rhonchi bilaterally with normal respiratory effort Heart: irreg irreg, S1, S2, 1/6 systolic murmur. 2+ peripheral edema, 1+ pulses in the right lower external Abdomen: Soft, nontender, no masses. No hepatomegaly. No splenomegaly Extremities: No clubbing or cyanosis. Normal muscle streng. Status post left BKA. Skin: Normal skin turgor with no skin ulcers or lesions noted. Neuro: Cranial nerves intact. Sensation intact Psych: Alert and oriented x 3 with appropriate affect Labs/Manny Results: Laboratory Tests 08/27 08/27 08/26 0520 0210 2000 Chemistry Sodium (137 - 145 mmol/L) 136 L Potassium (3.5 - 5.1 mmol/L) 5.1 Chloride (98 - 107 mmol/L) 104 Carbon Dioxide (22 - 30 mmol/L) 23 Anion Gap (5 - 16) 10 BUN (9 - 20 mg/dL) 50 H Creatinine (0.7 - 1.2 mg/dL) 3.5 H Estimated GFR (>60 ml/min) 18 L BUN/Creatinine Ratio (7 - 25 %) 14.3 Troponin I (<0.11 ng/ml) 0.01 0.01 Hematology CBC w Diff NO MAN DIFF REQ WBC (4.8 - 10.8 /CUMM) 5.0 RBC (4.70 - 6.10 /CUMM) 2.75 L Hgb (14.0 - 18.0 G/DL) 8.1 L Hct (42 - 52 %) 25.1 L MCV (80.0 - 94.0 FL) 91.2 MCH (27.0 - 31.0 PG) 29.5 MCHC (33.0 - 37.0 G/DL) 32.4 L RDW (11.5 - 14.5 %) 17.6 H Plt Count (130 - 400 /CUMM) 144 MPV (7.4 - 10.4 FL) 7.4 Gran % (42.2 - 75.2 %) 96.2 H Lymphocytes % (20.5 - 51.1 %) 1.7 L Monocytes % (1.7 - 9.3 %) 2.0 Eosinophils % (0 - 5 %) 0.1 Basophils % (0.0 - 2.0 %) 0 Absolute Granulocytes (1.4 - 6.5 /CUMM) 4.8 Absolute Lymphocytes (1.2 - 3.4 /CUMM) 0.1 L Absolute Monocytes (0.10 - 0.60 /CUMM) 0.1 Absolute Eosinophils (0.0 - 0.7 /CUMM) 0 Absolute Basophils (0.0 - 0.2 /CUMM) 0 /03 03/03 1500 1240 Blood Gas pH (7.35 - 7.45 PH) 7.32 L pCO2 (35 - 45 TORR) 42 pO2 (80 - 100 TORR) 68 L HCO3 (21 - 28 MEQ/L) 21 ABG O2 Sat (Measured) (>96.0 %) 92.0 L P-50 (Temp Corrected) N Carboxyhemoglobin (1.5 - 5.0 %) 0.7 L O2 Concentration % 3L O2 Delivery Method N/C Chemistry Sodium (137 - 145 mmol/L) 144 Potassium (3.5 - 5.1 mmol/L) 4.5 Chloride (98 - 107 mmol/L) 111 H Carbon Dioxide (22 - 30 mmol/L) 21 L Anion Gap (5 - 16) 12 BUN (9 - 20 mg/dL) 52 H Creatinine (0.7 - 1.2 mg/dL) 3.5 H Estimated GFR (>60 ml/min) 18 L BUN/Creatinine Ratio (7 - 25 %) 14.9 Glucose (65 - 99 mg/dL) 236 H Calcium (8.4 - 10.2 mg/dL) 8.7 Total Bilirubin (0.2 - 1.3 mg/dL) 0.4 AST (17 - 59 U/L) 15 L ALT (21 - 72 U/L) 23 Alkaline Phosphatase (< 127 U/L) 63 Troponin I (<0.11 ng/ml) < 0.01 [id number] Pept (<125 pg/mL) 6280 H Total Protein (6.3 - 8.2 g/dL) 5.8 L Albumin (3.5 - 5.0 g/dL) 3.4 L Globulin (1.9 - 4.2 gm/dL) 2.4 Albumin/Globulin Ratio (1.1 - 2.2 %) 1.4 Coagulation PT (9.4 - 12.5 SEC) 16.4 H INR (0.90 - 1.17) 1.57 H APTT (25 - 37 SEC) 40 H Hematology CBC w Diff NO MAN DIFF REQ WBC (4.8 - 10.8 /CUMM) 5.3 RBC (4.70 - 6.10 /CUMM) 2.88 L Hgb (14.0 - 18.0 G/DL) 8.4 L Hct (42 - 52 %) 26.3 L MCV (80.0 - 94.0 FL) 91.3 MCH (27.0 - 31.0 PG) 29.0 MCHC (33.0 - 37.0 G/DL) 31.8 L RDW (11.5 - 14.5 %) 17.0 H Plt Count (130 - 400 /CUMM) 155 MPV (7.4 - 10.4 FL) 7.1 L Gran % (42.2 - 75.2 %) 87.0 H Lymphocytes % (20.5 - 51.1 %) 1.9 L Monocytes % (1.7 - 9.3 %) 10.2 H Eosinophils % (0 - 5 %) 0.9 Basophils % (0.0 - 2.0 %) 0 Absolute Granulocytes (1.4 - 6.5 /CUMM) 4.6 Absolute Lymphocytes (1.2 - 3.4 /CUMM) 0.1 L Absolute Monocytes (0.10 - 0.60 /CUMM) 0.5 Absolute Eosinophils (0.0 - 0.7 /CUMM) 0 Absolute Basophils (0.0 - 0.2 /CUMM) 0 Miscellaneous Phlebotomy Draw Site LEFT RADIAL Diagnostic Data EKG Results EKG tracing is independently reviewed, and reveals atrial fibrillation with ventricular response of 83 CXR Results Lung volumes are somewhat low. There is persistent central vascular congestion without evidence of overt failure or focal consolidation. Marked cardiomegaly post median sternotomy is unchanged. There is a new right-sided PICC with the catheter tip terminating over the cavoatrial junction. There are no pleural effusions. Other Results Echocardiogram 11/02/16 Normal size left ventricle. Mild concentric left ventricular hypertrophy. No obvious regional wall motion abnormalities. Normal left ventricular ejection fraction visually estimated at > 65%. Moderate right ventricular dilatation. Mild to moderate right atrial dilatation. Moderate left atrial dilatation. Trace mitral regurgitation. Trace tricuspid regurgitation. Right ventricular systolic pressure estimated at 36 mmHg. Trace pulmonic regurgitation. Mildly dilated ascending aorta. Mildly dilated inferior vena cava. Assessment/Plan Assessment/Plan The patient is a 67-year-old male with history of hypertension, diabetes mellitus, endocarditis, chronic kidney disease mitral valve repair, and left BKA presenting with shortness of breath after transfusion. The presentation suggests likely acute on chronic HFpEF, exacerbated by the transfusion. He continues to have significant volume overload. The degree of diuresis has been poor on the 20 mg dose of Lasix. He likely will likely require a higher dose of Lasix for adequate diuresis given the chronic kidney disease. Recommendations: * Increase Lasix to 40 mg IV every 12 hours * Monitor input and output with daily weight * Check basic metabolic profile daily * Repeat echocardiogram * Continue other cardiac medications Consult Acknowledgment - Thank you for your consult request.
[2017-08-27 22:14] VITALS: BP 134/92
[2017-08-28 04:00] VITALS: BP 120/70
[2017-08-28 06:30] VITALS: BP 128/86
--- NOTE | 2017-08-28 06:57 | PN- Housestaff ---
Deo ARCEO,Berenice 08/28/17 0657: Subjective Follow-up For: Acute hypoxic respiratory failure due to COPD exacerbation and CHF exacerbation Complaints: no complaints Tele-Events Since Last Visit: Jinny fib [id number], QRS 0.08, no overnight events Subjective: Patient was seen and examined at bedside, a febrile and denies any complaints, no acute overnight events. The patient was able to be tapered off oxygen saturating well on room air Review of Systems Constitutional: Denies: chills, diaphoresis, fever. Cardiovascular: Denies: chest pain, edema, orthopena, palpitations. Respiratory: Denies: cough, hemoptysis, orthopnea, short of breath, sputum production. Gastrointestinal: Denies: no symptoms. Genitourinary: Denies: discharge, dysuria, frequency, hematuria, hesitation. Musculoskeletal: Denies: no symptoms. Skin: Denies: no symptoms. Objective Last 24 Hrs of Vital Signs/I&O Vital Signs Date Time Temp Pulse Resp B/P B/P Pulse O2 O2 Flow FiO2 Mean Ox Delivery Rate 08/28 1409 97.9 82 20 150/96 92 Room Air 08/28 1137 Room Air 1.0L 08/28 1048 96 Room Air 08/28 0917 128/64 03/05 0917 128/64 03/ 0812 76 08/28 0812 96 Nasal 1.0L Cannula 08/28 0630 98.3 68 20 128/86 96 /05 0400 98.0 70 18 120/70 03/05 0000 93 Nasal 1.0L Cannula 08/27 2214 97.9 83 20 134/92 98 / 1855 96 Nasal 2.0L Cannula 08/27 1655 79 03 1655 94 Nasal 1.0L Cannula Intake & Output 08/28 1600 08/28 0800 03/ 0000 Intake Total 50 252 Output Total 1500 650 Balance -1450 -398 Intake, IV 12 Intake, Oral 50 240 Output, Urine 1500 650 Patient 240 lb Weight Physical Exam General Appearance: Alert, Oriented X3, Cooperative, No Acute Distress HEENT: Atraumatic, PERRLA, EOMI, Mucous Membr. moist/pink Neck: Supple, No JVD Cardiovascular: Normal S1, Normal S2, No Murmurs Lungs: Clear to Auscultation Abdomen: Normal Bowel Sounds, Soft, No Tenderness Neurological: Normal Speech, Strength at 5/5 X4 Ext, Normal Tone, Sensation Intact, Cranial Nerves 3-12 NL Extremities: LEFT BKA, RIGHT LEG 2 + PITTING EDEMA Vascular: Normal Pulses Assessment/Plan Assessment: Mr Ling is a patient is 67-year-old gentleman with past medical history of delirium tremors, alcoholic abuse with multiple previous admissions for alcohol detox, alcohol withdrawal seizures, hypertension, hyperlipidemia, diabetes on insulin, atrial fibrillation on Eliquis, CAD, mitral regurgitation status post MVR, COPD (not on home oxygen, hepatitis C status post treatment, staph aureus endocarditis, CKD, Waldenstrm's macroglobulinemia, colon/rectal cancer (status post surgery), prostate cancer(status post radiation), BPH and L BLKA ( wheelchair bound). He presented to [facility] ED on 08/26/2017 complaining of shortness of breath ECHO October 2016 demonstrated Normal left ventricular ejection fraction visually estimated at >65% Problem list: Acute hypoxic respiratory failure due to COPD exacerbation and HFpEF exacerbation Diabetes mellitus A. fib on Eliquis YVROSE on CKD History of alcohol abuse and delirium tremens Chronic medical conditions including BPH Plan: Continue to monitor on telemetry Vitals every shift Strict I's and O's Continue Lasix 40 mg IV twice daily, patient is currently -1450 DC IV Solu-Medrol Start p.o. prednisone 40 mg twice daily Insulin sliding scale Levemir 20 units daily TRC/nebs Continue Symbicort and Ventolin inhalers Nicotine patch 14 mg daily Monitor alcohol withdrawal with CIWA score Continue home meds including Flomax,Serteraline, folic acid,Aspirin Cardiology recommendations appreciated Pulmonology recommendations appreciated Monitor hemoglobin, sodium and renal function Continue amlodipine, apixaban, ASA, Lasix 20 mg twice a day, IV methylprednisolone, metoprolol DVT prophylaxis with Eliquis Full code Consistent carbohydrate diet was 1000 cc fluid restriction Problem List: 1. CHF exacerbation 2. COPD exacerbation 3. Fluid overload Pain Ratin Pain Location: N/A Pain Goal: Remain pain free Pain Plan: pathway Tomorrow's Labs & Rationales: cbc bep DVT/Prophylaxis: mechanical, pharmacological Sanju Antoine 08/28/17 1543: Attending Review Statement Attending Statement Attending MD Statement: examined this patient, discuss w/resident/PA/HISTORIOGRAPHY TEACHER, agreed w/resident/PA/HISTORIOGRAPHY TEACHER, reviewed EMR data (avail), discussed with nursing, discussed with case mgmt Attending Assessment/Plan: change iv solumedrol to po prednisone 40mg. pt encouraged to quit smoking. he is on nicotine pathcn. pt wiht chf exacerbation. pt encouraged to quit drinking. drinks a pint of vodka weekly . not willing to quit. will f/u on cardio recommendations for lasix dosing. currently on 40mg iv lasix bid. d/w pt the care plan.
[2017-08-28 09:53] LABS: ABSOLUTE BASOPHIL COUNT 0 /CUMM (0.0-0.2); ABSOLUTE EOSINOPHIL COUNT 0 /CUMM (0.0-0.7); ABSOLUTE GRANULOCYTE CT 4.9 /CUMM (1.4-6.5); ABSOLUTE LYMPH COUNT 0.1 /CUMM (1.2-3.4); ABSOLUTE MONOCYTE COUNT 0.2 /CUMM (0.10-0.60); BASOPHIL % 0 % (0.0-2.0); EOSINOPHIL % 0.1 % (0-5); GRANULOCYTE % 93.8 % (42.2-75.2); HEMATOCRIT 23.2 % (42-52); MEAN CORPUSCULAR HGB 30.6 PG (27.0-31.0); MEAN CORPUSCULAR HGB CONC 33.4 G/DL (33.0-37.0); MEAN CORPUSCULAR VOLUME 91.8 FL (80.0-94.0); MEAN PLATELET VOLUME 7.6 FL (7.4-10.4); PLATELET COUNT 151 /CUMM (130-400); RBC DISTRIBUTION WIDTH 16.7 % (11.5-14.5); RED BLOOD CELL CT 2.53 /CUMM (4.70-6.10); WHITE BLOOD CELL COUNT 5.2 /CUMM (4.8-10.8)
--- NOTE | 2017-08-28 13:54 | Discharge Summary ---
Visit Information Visit Dates Admission Date: 08/26/17 Discharge Date: 08/30/2017 Hospital Course Course Attending Physician: Arash ARCEO,Sanju Schneider Primary Care Physician: Josesito ARCEO,[facility] Course: Patient is 67-year-old gentleman with L GABY (wheelchair bound) presented to [facility] ED on 08/26/2017 complaining of shortness of breath.On 08/25/17 he presented with severe anemia, and was transfused 2 units of packed red blood cells.The next morning he developed significant shortness of breath with oxygen saturation in the 70s. ED course - Vital signs temperature 97.6, pulse 80, respiratory rate 24, blood pressure 143/ 83, SPO2 96%-on 4 L of nasal cannula. Blood workup showed hemoglobin 8.4, hematocrit 26.3, platelet count 155, BUN 52, creatinine 3.5, sodium 144, potassium 5.5, chloride 111, hematocrit 21, anion gap 12, calcium 8.7, total protein 5.8, albumin 3.4, total bilirubin 0.4, alkaline phosphatase 63, CO2 15, SGPT 23, troponin I less than 0.01, proBNP 6280, Chest x-ray-no any acute cardiopulmonary process. There was persistent central vascular congestion without any evidence of overt heart failure or focal consolidation. Acute hypoxic respiratory failure due to acute on chronic HFpEF, exacerbated by volume overload secondary to the blood transfusion We admitted the patient to telemetry floor. Serial troponins were negative.We gave him IV Lasix, strict intake output charting and daily weight measurement.We obtained cardiology consult. Advised for repeat echocardiogram.We obtained pulmonology consult, as there was component of COPD exacerbation. Advised to give IV Solu-Medrol and outpatient sleep study.We discharged patient on tapering dose of steroid prednisone 40x2 days, 30x2 days, 20x2 days,10x2 days and follow- up with check embosser as an outpatient. We increased dose of lasix to 40mg daily and advised to repeat creatinine with in a week of discharge and follow up with electronic warfare specialist for further management of CHF. Type 2 diabetes -HBA1C -5.8 Because of the steroids patient's blood sugars were very high.We treated with high doses of insulin.We discharged him on his home dose of insulin.We advised him to regularly monitor the blood sugar level and follow-up with the parachutist/combatant diver qualified for further adjustment in the dose of the insulin. CKD Stage G4 The adjusted the dose of diuretics and regularly monitored the serum creatinine level.We discharged the patient on tablet Lasix 40 mg daily. At the time of discharge patient creatinine was 3.2. Chronic medical condition-We continued all his home medication as before. We removed the PICC line at time of discharge. Allergies: Coded Allergies: NO KNOWN ALLERGIES (UNKNOWN 12/05/16) Disposition Summary Disposition Principal Diagnosis: Acute hypoxic respiratory failure due to acute on chronic HFpEF, exacerbated by the transfusion Morbid obesity with signs of KIN need outpatient sleep study Additional Diagnosis: Delirium tremons, alcoholic abuse with multiple previous admissions for alcohol detox, alcohol withdrawal seizures, Hypertension, Hyperlipidemia, Diabetes on insulin, Atrial fibrillation on Eliquis, CAD, mitral regurgitation status post MVR, 2010 with a Maze procedure COPD (not on home oxygen, Hepatitis C status post treatment, staph aureus endocarditis, CKD, Waldenstrm's macroglobulinemia, Colon/rectal cancer (status post surgery), Prostate cancer(status post radiation), BPH and L BLKA (wheelchair bound) Discharge Disposition: SNF Discharge Instructions General Discharge Information Code Status: Full Code Patient's Diet: Consistent carbohydrate 1 diet Patient's Activity: As tolerated Follow-Up Instructions/Appts: Please follow-up with your PCP within a week of discharge Please follow up parachutist/combatant diver qualified for further management of diabetes Please take the medication as advised Medications at Discharge Discharge Medications: Continue taking these medications: Sertraline HCl (Sertraline HCl) 50 MG TABLET 1 Tablet ORAL DAILY @8 AM Qty = 14 Comments: Last Taken:05/10/17 Time: 0900AM Trazodone HCl (Trazodone HCl) 100 MG TABLET 1 Tablet ORAL 2200 Qty = 14 Comments: Last Taken:05/09/17 Time: 2100PM Budesonide/Formoterol Fumarate (Symbicort 160-4.5 Mcg Inhaler) 160 MCG-4.5 MCG/ ACTUATION HFA.AER.AD 2 Puff Inhale through mouth TWICE DAILY Qty = 1 Comments: Last Taken:08/30/17 Time:9:38A.M Apixaban (Eliquis) 5 MG TABLET 1 Tablet ORAL TWICE DAILY Qty = 28 Comments: Last Taken:08/30/17 Time:09:38am Hydralazine HCl (Hydralazine HCl) 25 MG TABLET 1 Tablet ORAL THREE TIMES DAILY Qty = 42 Comments: Last Taken:05/10/17 Time: 0900AM Amlodipine Besylate (Norvasc) 10 MG TABLET 1 Tablet ORAL DAILY Qty = 14 Comments: Last Taken:08/30/17 Time:09:38am Aspirin (Ecotrin*) 81 MG TABLET.DR 1 Tablet ORAL DAILY Qty = 14 Comments: Last Taken:05/10/17 Time: 0900am Gabapentin (Gabapentin) 300 MG CAPSULE 2 Capsule ORAL THREE TIMES DAILY Qty = 84 Comments: Last Taken:05/10/17 Time: 0900AM Folic Acid (Folic Acid) 1 MG TABLET 1 Tablet ORAL DAILY Qty = 14 Comments: Last Taken:08/30/17 Time:9:38A.M Thiamine HCl (Vitamin B-1) 100 MG TABLET 1 Tablet ORAL DAILY Qty = 14 Comments: Last Taken:05/10/17 Time: 0900AM Metoprolol Succ XL (Toprol XL) 25 MG TAB 1 Tablet ORAL DAILY Qty = 14 Comments: Last Taken: 05/10/17 Time: 0900AM Insulin Detemir (Levemir Flextouch) 100 UNIT/ML (3 ML) INSULN.PEN 20 Units Inject into fatty tissue DAILY Tamsulosin HCl (Flomax) 0.4 MG CAP.ER.24H 1 Capsule ORAL 5 PM Trazodone HCl (Trazodone HCl) 50 MG TABLET 0.25 Tablet ORAL Every night Ipratropium/Albuterol Sulfate (Iprat-Albut 0.5-3(2.5) MG/3 Ml) 0.5 MG-3 MG (2.5 MG BASE)/3 ML AMPUL.NEB 1 Inhalation ORAL TWICE DAILY Omeprazole (Omeprazole) 20 MG CAPSULE.DR 1 Capsule ORAL DAILY Ferrous Sulfate (Ferrous Sulfate) 325 MG (65 MG IRON) TABLET 1 Tablet ORAL DAILY Comments: NOT GIVEN THIS ADMISSION Acetaminophen (Pain Relief) 325 MG TABLET 2 Tablet ORAL Q4H as needed for PAIN/TEMP/>101 Comments: NOT GIVEN THIS ADMISSION Acetaminophen (Acephen) 650 MG SUPP.RECT 1 SUPPOSITORY RECTALLY Q4H as needed for PAIN/TEMP>101 Comments: NOT GIVEN THIS ADMISSION Magnesium Hydroxide (Milk Of Magnesia) 400 MG/5 ML ORAL.SUSP 30 Milliliters ORAL DAILY as needed for NO BM IN 3 DAYS Bisacodyl (Dulcolax) 10 MG SUPP.RECT 1 Suppository RECTAL DAILY as needed for CONSTIPATION Comments: NOT GIVEN THIS ADMISSION Na Phos,M-B/Na Phos,Di-Ba (Fleet Enema) 19 GRAM-7 GRAM/118 ML ENEMA 1 Enema RECTAL DAILY as needed for CONSTIPATION Albuterol Sulfate (Proair Hfa) 90 MCG HFA.AER.AD 2 PUFF Inhale through mouth Q6H as needed for RESP. Comments: NOT GIVEN THIS ADMISSION Start taking the following new medications: Nicotine (Nicotine Patch) 14 MG/24 HOUR PATCH.TD24 14 Milligram On the skin DAILY Qty = 30 No Refills Prednisone (Prednisone) 10 MG TABLET 1 Tablet ORAL DAILY Qty = 20 No Refills Comments: take 4 tabs daily on 08/30,08/31 take 3 tabs dasily on 09/01,09/02 take 2 tabs daily on 09/03,09/04 take one tab daily on 09/05, 09/06 The following medications have been changed: Old: Furosemide (Furosemide) 20 MG TABLET 1 Tablet ORAL DAILY New: Furosemide (Furosemide) 40 MG TABLET 1 Tablet ORAL DAILY Qty = 90 Copies To: Josesito ARCEO,Maida Edwards MD Review Statement Documenting Attending: Arash ARCEO,Sanju Schneider
[2017-08-28 14:09] VITALS: BP 150/96
--- NOTE | 2017-08-28 18:46 | PN- Pulmonary ---
Subjective HPI/Critical Care Issues: DOing well stable on room air fatigue Constitutional: Denies: chills, diaphoresis, fever. Cardiovascular: Denies: chest pain, edema, orthopena, palpitations. Respiratory: Denies: cough, hemoptysis, orthopnea, short of breath, sputum production. Gastrointestinal: Denies: no symptoms. Genitourinary: Denies: discharge, dysuria, frequency, hematuria, hesitation. Musculoskeletal: Denies: no symptoms. Skin: Denies: no symptoms. General Appearance: Alert, Oriented X3, Cooperative, No Acute Distress HEENT: Atraumatic, PERRLA, EOMI, Mucous Membr. moist/pink Neck: Supple, No JVD Cardiovascular: Normal S1, Normal S2, No Murmurs Lungs: Clear to Auscultation Abdomen: Normal Bowel Sounds, Soft, No Tenderness Neurological: Normal Speech, Strength at 5/5 X4 Ext, Normal Tone, Sensation Intact, Cranial Nerves 3-12 NL Extremities: LEFT BKA, RIGHT LEG 2 + PITTING EDEMA Vascular: Normal Pulses Objective Current Medications: Current Medications Sig/Avery Start time Last Medication Dose Route Stop Time Status Admin Acetaminophen 1,000 MG Q8P PRN 08/26 2200 AC N/A 1 UNIT IV Acetaminophen 325 MG Q8P PRN 08/26 2200 AC PO Albuterol Sulfate 3 ML BID 08/27 1036 AC 08/28 INH 1048 Albuterol Sulfate 2 PUF Q6H PRN 08/26 1815 AC INH Amlodipine Besylate 10 MG DAILY 08/27 1000 AC 08/28 PO 0917 Apixaban 5 MG BID 08/26 2200 AC 08/28 PO 0916 Aspirin Buffered 81 MG DAILY 08/27 1000 AC 08/28 PO 0916 Budesonide/ 2 PUF BID 08/26 2200 AC 08/28 Formoterol Fumarate INH 0919 Folic Acid 1 MG DAILY 08/27 1000 AC 08/28 PO 0916 Furosemide 40 MG 7:30 AM, & 4:30 PM 08/28 0730 AC 08/28 IV 1711 Furosemide 20 MG 7:30 AM, & 4:30 PM 08/27 0730 DC 08/27 IV 1611 Gabapentin 600 MG TID 08/27 1000 AC 08/28 PO 1711 Insulin Aspart 0 TIDAC/HS 08/28 1700 AC 08/28 SC 1711 Insulin Aspart 0 TIDAC 08/27 1700 DC 08/28 SC 1210 Insulin Detemir 20 UNITS DAILY 08/27 1000 AC 08/28 SC 0823 Ipratropium [place]ristow 2.5 ML BID 08/27 1037 AC 08/28 INH 1048 Methylprednisolone 40 MG Q12 08/26 2200 DC 08/28 IV 0918 Metoprolol Succinate 25 MG DAILY 08/27 1000 AC / PO 0917 Nicotine 14 MG DAILY 08/29 1000 AC TOP Nicotine 21 MG DAILY 08/26 1830 DC 08/28 TOP 0915 Omeprazole 20 MG DAILY AC 08/27 0700 AC 08/28 PO 0715 Patient Medication 1 ED ONE ONE 08/28 1415 DC Teaching ED 08/28 1416 Prednisone 40 MG DAILY 08/28 1027 AC PO Sertraline HCl 50 MG 0800 08/27 0800 AC 08/28 PO 0915 Tamsulosin HCl 0.4 MG 1700 08/28 1700 AC 08/28 PO 1713 Trazodone HCl 100 MG 2200 08/26 2200 AC 08/27 PO 2114 Vital Signs & I&O Last 24 Hrs of Vitals and I&O: Vital Signs Date Time Temp Pulse Resp B/P B/P Pulse O2 O2 Flow FiO2 Mean Ox Delivery Rate 08/28 1713 76 148/88 / 1600 Room Air 08/28 1550 80 / 1409 97.9 82 20 150/96 92 Room Air 08/28 1137 Room Air 1.0L 08/28 1048 96 Room Air / 0917 128/64 03/05 0917 128/64 /05 0812 76 03/05 0812 96 Nasal 1.0L Cannula 08/28 0630 98.3 68 20 128/86 96 03/05 0400 98.0 70 18 120/70 03/05 0000 93 Nasal 1.0L Cannula 08/27 2214 97.9 83 20 134/92 98 / 1855 96 Nasal 2.0L Cannula Intake & Output 08/28 1600 03/05 0800 03/05 0000 Intake Total 460 50 252 Output Total 1200 1500 650 Balance -558 -9866 -398 Intake, IV 60 12 Intake, Oral 400 50 240 Output, Urine 1200 1500 650 Patient 240 lb Weight Impression/Plan Impression/Plan Impression/Plan: Mr Ling is a patient is 67-year-old gentleman with past medical history of delirium tremors, alcoholic abuse with multiple previous admissions for alcohol detox, alcohol withdrawal seizures, hypertension, hyperlipidemia, diabetes on insulin, atrial fibrillation on Eliquis, CAD, mitral regurgitation status post MVR, COPD (not on home oxygen, hepatitis C status post treatment, staph aureus endocarditis, CKD, Waldenstrm's macroglobulinemia, colon/rectal cancer (status post surgery), prostate cancer(status post radiation), BPH and L BLKA ( wheelchair bound). He presented to [place] ED on 08/26/2017 complaining of shortness of breath ISSUES REsolved resp failure due to HFpEF Prob does have copd needs out pt eval Morbid obesity with signs of patrice DM Afib YVROSE ETOH use BPH SIg anemia requiring transfusions COnt present rx will follow as out pt pt is stable
--- NOTE | 2017-08-28 19:24 | PN- Cardiology ---
Subjective Subjective: * Breathing is improved although patient is currently receiving a breathing treatment. No chest discomfort. * Increased creatinine to 3.7 * Severe anemia with downward trend in his H/H post recent transfusion Objective Vital Signs and I&Os Vital Signs Date Time Temp Pulse Resp B/P B/P Pulse O2 O2 Flow FiO2 Mean Ox Delivery Rate 08/28 1713 76 148/88 08/28 1600 Room Air 08/28 1550 80 / 1409 97.9 82 20 150/96 92 Room Air 08/28 1137 Room Air 1.0L 08/28 1048 96 Room Air 08/28 0917 128/64 03 0917 128/64 / 0812 76 03/ 0812 96 Nasal 1.0L Cannula 08/28 0630 98.3 68 20 128/86 96 /05 0400 98.0 70 18 120/70 03/05 0000 93 Nasal 1.0L Cannula 08/27 2214 97.9 83 20 134/92 98 Intake & Output 08/28 1600 08/28 0800 / 0000 / 1600 08/27 0800 / 0000 Intake Total 460 50 872 236 6981 211 Output Total 1200 1500 650 700 450 Balance -740 -1450 -398 -150 2200 -239 Intake, IV 60 12 11 Intake, Oral 400 50 189 863 3502 200 Output, Urine 1200 1500 650 700 450 Patient 240 lb 234 lb 230 lb Weight Weight Bed scale Bed scale Measurement Method Physical Exam: General: well developed, obese male in no acute distress HEENT: NCAT, PERRL, EOMI Neck: no JVD, no carotid bruit Heart: irregularly irregular Lungs: CTA bilaterally Abdomen: Soft, nontender, nondistended, bowel sounds intact Ext: normal pulses, no cyanosis/clubbing/edema, left BKA Assessment/Plan Assessment/Plan * This patient has severe anemia with a downward trend over the past couple days despite diuresis. His shortness of breath post transfusion was likely related to too much volume in a short period of time. He does have baseline shortness of breath due to the anemia which was still very severe even post transfusion. * In late 2010, the patient had a kidney biopsy revealing cryoglobulinemic glomerulonephritis, with IgM deposition. The patient was found to have mitral valve replacement in 2010. He did start hepatitis C virus therapy and developed progressive anemia, which is attributed to antiviral therapy. The patient received multiple November 2011, he was found to have alloantibodies. He was aggressively treated for anemia in June 2012, with packed red blood cell transfusions, as well as erythropoietin. 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 With hemolytic anemia and high cold agglutinin titer, the patient was treated with rituximab in the summer of 2012. Posttreatment course was complicated by recurred prostate cancer for which he resumed hormonal therapy. 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 Patient was initiated on treatment approximately 2-1/2 weeks ago, consisting of dexamethasone, rituximab, and cyclophosphamide. * Would change to Lasix 40mg PO daily with careful monitoring of his renal function. Continue telemetry? Yes
[2017-08-28 22:03] VITALS: BP 130/60
[2017-08-29 06:00] VITALS: BP 144/88
--- NOTE | 2017-08-29 07:00 | ECHOCARDIOGRAM REPORT ---
BRANDYN BORDEN Age: 67 : 1950 Gender: M Exam Date: 08/28/2017 16:09 Exam Location: [address] Ht (in): 71 Wt (lb): 240 BSA: 2.37 BP: 128 / 64 Ordering Physician: Janusz Fritz MD Referring Physician: Girish Ann MD, PhD Technologist: Osiris Ko [facility] Room Number: [id number] Indications: SHORTNESS OF BREATH Rhythm: Atrial fibrillation Technical Quality: good FINDINGS Left Ventricle Normal left ventricular size with mild left ventricular hypertrophy. Normal systolic function with no obvious regional wall motion abnormalities. The ejection fraction is visually estimated at 60%. Right Ventricle The right ventricle is mildly enlarged with normal function. Right Atrium The right atrium is mildly enlarged. Left Atrium The left atrium is severely dilated. The interatrial septum is intact. Mitral Valve The mitral valve demonstrated moderate annular calcification with possible annuloplasty ring. There is mild mitral stenosis. There is trace mitral regurgitation. Aortic Valve Structurally normal aortic valve without significant sclerosis or stenosis. There is no aortic regurgitation. Tricuspid Valve The tricuspid valve is normal in structure and function. There is mild to moderate tricuspid regurgitation. Pulmonary artery systolic pressure is moderately elevated to 51mmHg. Pulmonic Valve Structurally normal pulmonic valve. There is trace pulmonic regurgitation. Pericardium Normal pericardium without effusion. No pleural effusion. Great Vessels Normal aortic root dimension. The aortic arch and great vessels are well seen and are normal. CONCLUSIONS 1. Normal EF of 60%. 2. Mild left ventricular hypertrophy. 3. Mild right atrial and severe left atrial enlargement. 4. Mild right ventricular enlargement. 5. Mitral annular calcification with mild mitral stenosis. Trace mitral regurgitation. 6. Mild to moderate tricuspid regurgitation. 7. Trace pulmonic regurgitation. 8. Moderate pulmonary hypertension. Girish Ann M.D. (Electronically Signed) Final Date: 29 August 2017 07:00 MEASUREMENTS (Male / Female) Normal Values 2D ECHO LV Diastolic Diameter PLAX 4.9 cm 4.2 - 5.9 / 3.9 - 5.3 cm LV Systolic Diameter PLAX 3.1 cm 2.1 - 4.0 cm LV Fractional Shortening PLAX 36.7 % 25 - 46 % LV Ejection Fraction 2D Teich 66.4 % IVS Diastolic Thickness 1.2 cm LVPW Diastolic Thickness 1.2 cm LV Relative Wall Thickness 0.5 RV Internal Dim ED PLAX 4.3 cm 1.9 - 3.8 cm LVOT Diameter 2.2 cm Aortic Root Diameter 3.3 cm LA Systolic Diameter LX 6.3 cm 3.0 - 4.0 / 2.7 - 3.8 cm LA Volume 101.0 cm 18 - 58 / 22 - 52 cm Ascending Aorta Diameter 3.6 cm DOPPLER AV Peak Velocity 125.0 cm/s AV Peak Gradient 6.3 mmHg AV Mean Velocity 85.0 cm/s AV Mean Gradient 3.0 mmHg AV Velocity Time Integral 25.8 cm LVOT Peak Velocity 118.0 cm/s LVOT Peak Gradient 5.6 mmHg LVOT Mean Velocity 80.6 cm/s LVOT Mean Gradient 3.0 mmHg LVOT Velocity Time Integral 22.6 cm LVOT Stroke Volume 85.9 cm AV Area Cont Eq vti 3.3 cm AV Area Cont Eq pk 3.6 cm MV Peak Velocity 231.0 cm/s MV Peak Gradient 21.3 mmHg MV Mean Velocity 124.0 cm/s MV Mean Gradient 8.0 mmHg Mitral E Point Velocity 198.0 cm/s MV PHT Velocity 244.0 cm/s MV Deceleration [place] 716.0 cm/s MV Pressure Half Time 102.2 ms MV Area PHT 2.2 cm MV Deceleration Time 301.0 ms TR Peak Velocity 333.0 cm/s TR Peak Gradient 44.4 mmHg Right Atrial Pressure 5.0 mmHg Pulmonary Artery Systolic Pressu 49.4 mmHg Right Ventricular Systolic Press 49.4 mmHg PV Peak Velocity 101.0 cm/s PV Peak Gradient 4.1 mmHg PV Mean Velocity 61.7 cm/s PV Mean Gradient 2.0 mmHg PV Velocity Time Integral 18.1 cm LV E' Lateral Velocity 14.9 cm/s Mitral E to LV E' Lateral Ratio 13.3 LV E' Septal Velocity 8.5 cm/s Mitral E to LV E' Septal Ratio 23.4
--- NOTE | 2017-08-29 07:14 | PN- Housestaff ---
Deo ARCEO,Berenice 08/29/17 0714: Subjective Follow-up For: Acute hypoxic respiratory failure due to COPD exacerbation and CHF exacerbation Tele-Events Since Last Visit: Jinny thomas, [id number], QRS 0.08, PVCs, no acute overnight events Subjective: Patient is seen and examined at bedside, he reports market improvement of his bleeding, denies any fever, chills, nausea, vomiting diarrhea or constipation. Diuresing well of 3 L on p.o. Lasix over the past 24 hours Review of Systems Constitutional: Reports: no symptoms. Cardiovascular: Reports: no symptoms. Respiratory: Reports: no symptoms. Gastrointestinal: Reports: no symptoms. Genitourinary: Reports: no symptoms. Musculoskeletal: Reports: no symptoms. Objective Last 24 Hrs of Vital Signs/I&O Vital Signs Date Time Temp Pulse Resp B/P B/P Pulse O2 O2 Flow FiO2 Mean Ox Delivery Rate 08/29 1113 Room Air 1.0L 08/29 1052 93 Room Air 08/29 0600 97.1 73 20 144/88 97 08/28 2203 97.0 78 20 130/60 97 / 1905 91 Room Air 08/28 1713 76 148/88 08/28 1600 Room Air 08/28 1550 80 /05 1409 97.9 82 20 150/96 92 Room Air 08/28 1137 Room Air 1.0L Intake & Output 08/29 1600 06 0800 03/06 0000 Intake Total 400 160 Output Total 1100 1400 Balance -700 -1240 Intake, Oral 400 160 Output, Urine 1100 1400 Patient 235 lb Weight Physical Exam General Appearance: Alert, Oriented X3, Cooperative, No Acute Distress HEENT: Atraumatic, PERRLA, EOMI, Mucous Membr. moist/pink Neck: Supple, No JVD Cardiovascular: Normal S1, Normal S2, No Murmurs Lungs: Clear to Auscultation Abdomen: Normal Bowel Sounds, Soft, No Tenderness Neurological: Normal Speech, Strength at 5/5 X4 Ext, Normal Tone, Sensation Intact Extremities: No Clubbing, No Cyanosis, 2 +pitting edema in the right LE, Left BKA Vascular: Normal Pulses Assessment/Plan Assessment: Mr Ling is a patient is 67-year-old gentleman with past medical history of delirium tremors, alcoholic abuse with multiple previous admissions for alcohol detox, alcohol withdrawal seizures, hypertension, hyperlipidemia, diabetes on insulin, atrial fibrillation on Eliquis, CAD, mitral regurgitation status post MVR, COPD (not on home oxygen, hepatitis C status post treatment, staph aureus endocarditis, CKD, Waldenstrm's macroglobulinemia, colon/rectal cancer (status post surgery), prostate cancer(status post radiation), BPH and L BLKA ( wheelchair bound). He presented to [facility] on 08/26/2017 complaining of shortness of breath ECHO October 2016 demonstrated Normal left ventricular ejection fraction visually estimated at >65% Problem list: Acute hypoxic respiratory failure due to COPD exacerbation and HFpEF exacerbation Diabetes mellitus A. fib on Eliquis YVROSE on CKD stage III History of alcohol abuse and delirium tremens Chronic medical conditions including BPH Chronic anemia Plan: Continue to monitor on telemetry Vitals every shift Strict I's and O's Hold p.o. Lasix as his creatinine today is 3.5, monitor renal functions Continue p.o. prednisone 40 mg twice daily Insulin sliding scale Levemir 20 units daily TRC/nebs Continue Symbicort and Ventolin inhalers Nicotine patch 14 mg daily Monitor alcohol withdrawal with CIWA score Continue home meds including Flomax,Serteraline, folic acid,Aspirin Cardiology recommendations appreciated Pulmonology recommendations appreciated Monitor hemoglobin, sodium and renal function Continue amlodipine, apixaban, ASA, Lasix 20 mg twice a day, IV methylprednisolone, metoprolol Problem List: 1. Anemia 2. CHF exacerbation 3. COPD exacerbation Pain Ratin Pain Location: N/A Pain Goal: Remain pain free Pain Plan: pathway Tomorrow's Labs & Rationales: cbc bep DVT/Prophylaxis: mechanical, pharmacological Sanju Antoine 08/29/17 1347: Attending MD Review Statement Attending Statement Attending MD Statement: examined this patient, discuss w/resident/PA/COIL TAPER, agreed w/resident/PA/COIL TAPER, reviewed EMR data (avail), discussed with nursing, discussed with case mgmt Attending Assessment/Plan: Creatinine going up and plan is to hold lasix for now. Repeat BMP in am . d/w pt the care plan. cont on po prednisone for now. breathing ok
[2017-08-29] MEDS ORDERED: LASIX40 M1 PO (07:43)
[2017-08-29] MEDS ORDERED: PREDNISONE10 M2 PO (07:43)
[2017-08-29] MEDS ORDERED: NICOTINE PATCH1 EAC2 TOP (07:43)
--- NOTE | 2017-08-29 07:45 | Patient Discharge Instructions ---
Discharge Instructions General Discharge Information You were seen/treated for: Acute hypoxic respiratory failure due to COPD exacerbation and HFpEF exacerbation Special Instructions: 1- please folow up with your PCP in 1 week of discharge 2- Please follow up with your chute feeder in 1 week of discharge 3- Please check your BEP in 3 days of discharge 4-Please follow up with art historian in 1 week of discharge Diet Continue normal diet: Yes Recommended Diet: Heart Healthy Acute Coronary Syndrome Inclusion Criteria At DC or during hospital stay patient has or had the following: ACS DIAGNOSIS No Discharge Core Measures Meds if any: Prescribed or Continued at Discharge Meds if any: NOT Prescribed or Continued at Discharge Congestive Heart Failure Inclusion Criteria At DC or during hospital stay patient has or had the following: CHF DIAGNOSIS No Discharge Core Measures Meds if any: Prescribed or Continued at Discharge Meds if any: NOT Prescribed or Continued at Discharge Cerebrovascular accident Inclusion Criteria At DC or during hospital stay patient has or had the following: CVA/TIA Diagnosis No Discharge Core Measures Meds if any: Prescribed or Continued at Discharge Meds if any: NOT Prescribed or Continued at Discharge Venous thromboembolism Inclusion Criteria VTE Diagnosis No VTE Type NONE VTE Confirmed by (Test) NONE Discharge Core Measures - Per Current guidelines, there needs to be overlap - treatment for the first 5 days of Warfarin therapy. - If discharged on Warfarin prior to 5 days of - overlap therapy, the patient will need to be - assessed for post discharge needs including - *Post discharge parental anticoagulation - *Warfarin and/or parental anticoagulation education - *Follow up date to check INR post discharge At least 5 days overlap therapy as Inpatient No Meds if any: Prescribed or Continued at Discharge Note: Overlap Therapy is Warfarin and Anticoagulant Meds if any: NOT Prescribed or Continued at Discharge
[2017-08-29 07:56] LABS: ABSOLUTE BASOPHIL COUNT 0 /CUMM (0.0-0.2); ABSOLUTE EOSINOPHIL COUNT 0 /CUMM (0.0-0.7); ABSOLUTE GRANULOCYTE CT 5.5 /CUMM (1.4-6.5); ABSOLUTE LYMPH COUNT 0.3 /CUMM (1.2-3.4); ABSOLUTE MONOCYTE COUNT 0.4 /CUMM (0.10-0.60); BASOPHIL % 0 % (0.0-2.0); EOSINOPHIL % 0 % (0-5); GRANULOCYTE % 88.7 % (42.2-75.2); MEAN CORPUSCULAR HGB 31.7 PG (27.0-31.0); MEAN CORPUSCULAR HGB CONC 34.4 G/DL (33.0-37.0); MEAN CORPUSCULAR VOLUME 92.2 FL (80.0-94.0); MEAN PLATELET VOLUME 7.2 FL (7.4-10.4); PLATELET COUNT 185 /CUMM (130-400); RED BLOOD CELL CT 2.71 /CUMM (4.70-6.10)
[2017-08-29 09:33] LABS: WHITE BLOOD CELL COUNT 6.2 /CUMM (4.8-10.8)
--- NOTE | 2017-08-29 12:38 | PN- Pulmonary ---
Subjective HPI/Critical Care Issues: Sleeping this am stable Objective Current Medications: Current Medications Sig/Avery Start time Last Medication Dose Route Stop Time Status Admin Acetaminophen 1,000 MG Q8P PRN 08/26 2200 AC N/A 1 UNIT IV Acetaminophen 325 MG Q8P PRN 08/26 2200 AC PO Albuterol Sulfate 3 ML BID 08/27 1036 AC 08/28 INH 1905 Albuterol Sulfate 2 PUF Q6H PRN 08/26 1815 AC INH Amlodipine Besylate 10 MG DAILY 08/27 1000 AC 08/29 PO 0857 Apixaban 5 MG BID 08/26 2200 AC 08/29 PO 0822 Aspirin Buffered 81 MG DAILY 08/27 1000 AC 08/29 PO 0822 Budesonide/ 2 PUF BID 08/26 2200 AC 08/29 Formoterol Fumarate INH 0830 Calcium Carbonate 500 MG ONCE ONE 08/29 1015 DC 08/29 PO 08/29 1016 1205 Folic Acid 1 MG DAILY 08/27 1000 AC 08/29 PO 0822 Furosemide 40 MG DAILY 08/29 1000 DC 08/29 PO 0823 Furosemide 40 MG 7:30 AM, & 4:30 PM 08/28 0730 DC 08/28 IV 1711 Gabapentin 600 MG TID 08/27 1000 AC 08/29 PO 0822 Insulin Aspart 0 TIDAC/HS 08/28 1700 AC 08/29 SC 1215 Insulin Aspart 0 TIDAC 08/27 1700 DC 08/28 SC 1210 Insulin Detemir 20 UNITS DAILY 08/27 1000 AC 08/29 SC 0829 Ipratropium [place] 2.5 ML BID 08/27 1037 AC 08/28 INH 1905 Metoprolol Succinate 25 MG DAILY 08/27 1000 AC 08/29 PO 0822 Nicotine 14 MG DAILY 08/29 1000 AC 08/29 TOP 0821 Nicotine 21 MG DAILY 08/26 1830 DC 08/28 TOP 0915 Omeprazole 20 MG DAILY AC 08/27 0700 AC 08/29 PO 0612 Patient Medication 1 ED ONE ONE 08/28 1415 DC Teaching ED 08/28 1416 Polyethylene Glycol 17 GM DAILY PRN 08/29 1100 AC 08/29 PO 1205 Prednisone 40 MG DAILY 08/28 1027 AC 08/29 PO 0822 Senna/Docusate Sodium 2 TAB DAILY PRN 08/29 1100 AC 08/29 PO 1205 Sertraline HCl 50 MG 0800 08/27 0800 AC 03/ PO 0857 Tamsulosin HCl 0.4 MG 1700 / 1700 AC 03/ PO 1713 Trazodone HCl 100 MG 2200 08/26 2200 AC / PO 2250 Vital Signs & I&O Last 24 Hrs of Vitals and I&O: Vital Signs Date Time Temp Pulse Resp B/P B/P Pulse O2 O2 Flow FiO2 Mean Ox Delivery Rate 08/29 1113 Room Air 1.0L 08/29 1052 93 Room Air 08/29 0859 80 08/29 0600 97.1 73 20 144/88 97 / 2203 97.0 78 20 130/60 97 03/05 1905 91 Room Air 08/28 1713 76 148/88 / 1600 Room Air 08/28 1550 80 / 1409 97.9 82 20 150/96 92 Room Air Intake & Output 08/29 1600 08/29 0800 03/ 0000 Intake Total 400 160 Output Total 1100 1400 Balance -700 -1240 Intake, Oral 400 160 Output, Urine 1100 1400 Patient 235 lb Weight Impression/Plan Impression/Plan Impression/Plan: [place] EOMI Chest mild crackles clear abd obese s/p amputaion Mr Ling is a patient is 67-year-old gentleman with past medical history of delirium tremors, alcoholic abuse with multiple previous admissions for alcohol detox, alcohol withdrawal seizures, hypertension, hyperlipidemia, diabetes on insulin, atrial fibrillation on Eliquis, CAD, mitral regurgitation status post MVR, COPD (not on home oxygen, hepatitis C status post treatment, staph aureus endocarditis, CKD, Waldenstrm's macroglobulinemia, colon/rectal cancer (status post surgery), prostate cancer(status post radiation), BPH and L BLKA ( wheelchair bound). He presented to [facility] on 08/26/2017 complaining of shortness of breath ISSUES REsolved resp failure due to HFpEF Prob does have copd needs out pt eval Morbid obesity with signs of patrice DM Afib YVROSE ETOH use BPH SIg anemia requiring transfusions COnt present rx will follow as out pt pt is stable
[2017-08-29 14:12] VITALS: BP 140/80
--- NOTE | 2017-08-29 21:46 | PN- Cardiology ---
Subjective Subjective: * No complaints * atrial fibrillation * increased creatinine to 3.5 Objective Vital Signs and I&Os Vital Signs Date Time Temp Pulse Resp B/P B/P Pulse O2 O2 Flow FiO2 Mean Ox Delivery Rate 08/29 1905 93 Room Air 08/29 1659 76 138/78 08/29 1456 80 08/29 1412 98.3 85 20 140/80 95 Room Air 08/29 1113 Room Air 1.0L 08/29 1052 93 Room Air 08/29 0859 80 08/29 0600 97.1 73 20 144/88 97 / 2203 97.0 78 20 130/60 97 Intake & Output 08/29 1600 08/29 0800 / 0000 08/28 1600 08/28 0800 08/28 0000 Intake Total 400 400 160 460 50 252 Output Total 2000 1100 1400 1200 1500 650 Balance -1600 -700 -1240 -740 -1450 -398 Intake, IV 60 12 Intake, Oral 400 400 160 400 50 240 Output, Urine 1999 1100 1400 1200 1500 650 Patient 235 lb 240 lb Weight Physical Exam: General: well developed, obese male in no acute distress HEENT: NCAT, PERRL, EOMI Neck: no JVD, no carotid bruit Heart: irregularly irregular Lungs: CTA bilaterally Abdomen: Soft, nontender, nondistended, bowel sounds intact Ext: normal pulses, no cyanosis/clubbing/edema, left BKA Assessment/Plan Assessment/Plan * This patient has severe anemia with a downward trend over the past couple days despite diuresis. His shortness of breath post transfusion was likely related to too much volume in a short period of time. He does have baseline shortness of breath due to the anemia which was still very severe even post transfusion. Breathing is now back to baseline. Follow off lasix due to renal insufficiency. Continue telemetry? No
[2017-08-29 22:05] VITALS: BP 140/84
[2017-08-30 07:11] VITALS: BP 162/88
[2017-08-30 08:09] LABS: ABSOLUTE BASOPHIL COUNT 0 /CUMM (0.0-0.2); ABSOLUTE EOSINOPHIL COUNT 0 /CUMM (0.0-0.7); ABSOLUTE GRANULOCYTE CT 4.3 /CUMM (1.4-6.5); ABSOLUTE LYMPH COUNT 0.3 /CUMM (1.2-3.4); ABSOLUTE MONOCYTE COUNT 0.4 /CUMM (0.10-0.60); BASOPHIL % 0 % (0.0-2.0); EOSINOPHIL % 0.3 % (0-5); MEAN CORPUSCULAR HGB 30.1 PG (27.0-31.0); MEAN CORPUSCULAR HGB CONC 33.3 G/DL (33.0-37.0); MEAN CORPUSCULAR VOLUME 90.6 FL (80.0-94.0); MEAN PLATELET VOLUME 6.9 FL (7.4-10.4); PLATELET COUNT 180 /CUMM (130-400); RBC DISTRIBUTION WIDTH 16.5 % (11.5-14.5); RED BLOOD CELL CT 2.87 /CUMM (4.70-6.10); WHITE BLOOD CELL COUNT 4.9 /CUMM (4.8-10.8)
--- NOTE | 2017-08-30 09:56 | PN- Housestaff ---
Deo ARCEO,Berenice 08/30/17 0956: Subjective Follow-up For: Acute hypoxic respiratory failure due to COPD exacerbation and CHF exacerbation Subjective: Patient is seen and examined at bedside, he reports market improvement of his bleeding, denies any fever, chills, nausea, vomiting diarrhea or constipation. Review of Systems Constitutional: Reports: no symptoms. Cardiovascular: Reports: no symptoms. Respiratory: Reports: no symptoms. Gastrointestinal: Reports: no symptoms. Genitourinary: Reports: no symptoms. Objective Last 24 Hrs of Vital Signs/I&O Vital Signs Date Time Temp Pulse Resp B/P B/P Pulse O2 O2 Flow FiO2 Mean Ox Delivery Rate 08/30 1253 98.8 77 18 08/30 1242 98.8 77 18 08/30 1235 98.8 77 18 08/30 0938 98.8 77 18 08/30 0938 98.8 77 18 16208/30 0850 94 Room Air 08/30 0711 98.8 77 18 162/ 95 08/29 2205 98.4 88 18 140/84 93 08/29 1905 93 Room Air 08/29 1659 76 138/78 Intake & Output 08/30 1600 08/30 0800 03 0000 Intake Total 800 558 Output Total 1450 920 Balance -650 -362 Intake, Oral 800 558 Output, Urine 1450 920 Patient 230 lb Weight Physical Exam General Appearance: Alert, Oriented X3, Cooperative, No Acute Distress HEENT: Atraumatic, PERRLA, EOMI, Mucous Membr. moist/pink Neck: Supple, No JVD, No thryomegaly Cardiovascular: Normal S1, Normal S2 Lungs: Clear to Auscultation Abdomen: Normal Bowel Sounds, Soft, No Tenderness Neurological: Normal Speech, Normal Tone, Sensation Intact Extremities: 2+ PITTING EDMEA OF LEFT LEG Vascular: Normal Pulses Assessment/Plan Assessment: Mr Ling is a patient is 67-year-old gentleman with past medical history of delirium tremors, alcoholic abuse with multiple previous admissions for alcohol detox, alcohol withdrawal seizures, hypertension, hyperlipidemia, diabetes on insulin, atrial fibrillation on Eliquis, CAD, mitral regurgitation status post MVR, COPD (not on home oxygen, hepatitis C status post treatment, staph aureus endocarditis, CKD, Waldenstrm's macroglobulinemia, colon/rectal cancer (status post surgery), prostate cancer(status post radiation), BPH and L BLKA ( wheelchair bound). He presented to [facility] ED on 08/26/2017 complaining of shortness of breath ECHO October 2016 demonstrated Normal left ventricular ejection fraction visually estimated at >65% Problem list: Acute hypoxic respiratory failure due to COPD exacerbation and HFpEF exacerbation Diabetes mellitus A. fib on Eliquis YVROSE on CKD stage III History of alcohol abuse and delirium tremens Chronic medical conditions including BPH Chronic anemia Plan: Continue to monitor on telemetry Vitals every shift Strict I's and O's Lasix on hold,his creatinine today is 3.2, monitor renal functions Continue p.o. prednisone 40 mg twice daily Insulin sliding scale Levemir 20 units daily TRC/nebs Continue Symbicort and Ventolin inhalers Nicotine patch 14 mg daily Monitor alcohol withdrawal with CIWA score Continue home meds including Flomax,Serteraline, folic acid,Aspirin Cardiology recommendations appreciated Pulmonology recommendations appreciated Monitor hemoglobin, sodium and renal function Continue amlodipine, apixaban, ASA, Lasix 20 mg twice a day, IV methylprednisolone, metoprolol hE stable to be discharged today to STR Full code DVT prophylaxis with subcutaneous heparin Heart healthy diet Problem List: 1. Anemia 2. CHF exacerbation 3. COPD exacerbation 4. Fluid overload Pain Ratin Pain Location: n/a Pain Goal: Remain pain free Pain Plan: PATHWAY Tomorrow's Labs & Rationales: CBC BEP DVT/Prophylaxis: mechanical, pharmacological Sanju Antoine 08/30/17 1518: Attending MD Review Statement Attending Statement Attending MD Statement: examined this patient, discuss w/resident/PA/GAS OPERATIONS SUPERINTENDENT, agreed w/resident/PA/GAS OPERATIONS SUPERINTENDENT, reviewed EMR data (avail), discussed with nursing, discussed with case mgmt Attending Assessment/Plan: pt being dced back to [facility] . will be dced on po lasix 40 mg qd and will have a BEP checked in few days. pt will f/u with cardiology and pulmonology as an outpatient . d/w pt the care plan. pt was encouraged to quit smoking .
[2017-08-30] MEDS ORDERED: FUROSEMIDE40 M1 PO (12:04)
[2017-08-30 12:35] VITALS: BP 162/88
[2017-08-30 12:42] VITALS: BP 162/88
[2017-08-30 12:53] VITALS: BP 162/88
--- NOTE | 2017-08-30 14:48 | PN- Pulmonary ---
Subjective HPI/Critical Care Issues: Being dcd stable Objective Current Medications: Current Medications Sig/Avery Start time Last Medication Dose Route Stop Time Status Admin Acetaminophen 1,000 MG Q8P PRN 08/26 2200 DCD N/A 1 UNIT IV Acetaminophen 325 MG Q8P PRN 08/26 2200 DCD PO Albuterol Sulfate 3 ML BID 08/27 1036 DCD 08/30 INH 0843 Albuterol Sulfate 2 PUF Q6H PRN 08/26 1815 DCD INH Alteplase, 2 MG ONCE ONE 08/30 0700 DC Recombinant IV 08/30 0701 Amlodipine Besylate 10 MG DAILY 08/27 1000 DCD 08/30 PO 0938 Apixaban 5 MG BID 08/26 2200 DCD 08/30 PO 0937 Aspirin Buffered 81 MG DAILY 08/27 1000 DCD 08/30 PO 0937 Budesonide/ 2 PUF BID 08/26 2200 DCD 08/30 Formoterol Fumarate INH 0937 Folic Acid 1 MG DAILY 08/27 1000 DCD 08/30 PO 0937 Gabapentin 600 MG TID 08/27 1000 DCD 08/30 PO 0937 Insulin Aspart 0 TIDAC/HS 08/28 1700 DCD 08/30 SC 1209 Insulin Detemir 20 UNITS DAILY 08/27 1000 DCD 08/30 SC 0937 Ipratropium [place] 2.5 ML BID 08/27 1037 DCD 08/30 INH 0844 Metoprolol Succinate 25 MG DAILY 08/27 1000 DCD 08/30 PO 0938 Nicotine 14 MG DAILY 08/29 1000 DCD 08/30 TOP 0938 Omeprazole 20 MG DAILY AC 08/27 0700 DCD 08/30 PO 0545 Polyethylene Glycol 17 GM DAILY PRN 08/29 1100 DCD 08/29 PO 1205 Prednisone 40 MG DAILY 08/28 1027 DCD 08/30 PO 0938 Senna/Docusate Sodium 2 TAB DAILY PRN 08/29 1100 DCD 08/29 PO 1205 Sertraline HCl 50 MG 0800 08/27 0800 DCD 08/30 PO 0834 Tamsulosin HCl 0.4 MG 1700 08/28 1700 DCD 08/29 PO 1659 Trazodone HCl 100 MG 2200 08/26 2200 DCD 08/29 PO 2132 Vital Signs & I&O Last 24 Hrs of Vitals and I&O: Vital Signs Date Time Temp Pulse Resp B/P B/P Pulse O2 O2 Flow FiO2 Mean Ox Delivery Rate 08/30 1253 98.8 77 18 162/88 03 1242 98.8 77 18 162/88 08/30 1235 98.8 77 18 162/88 03/ 0938 98.8 77 18 162/88 03/ 0938 98.8 77 18 162/88 03/ 0850 94 Room Air 08/30 0711 98.8 77 18 162/88 95 03/06 2205 98.4 88 18 140/84 93 03/ 1905 93 Room Air 08/29 1659 76 138/78 03/ 1456 80 Intake & Output 08/30 1600 08/30 0800 08/30 0000 Intake Total 800 558 Output Total 1450 920 Balance -650 -362 Intake, Oral 800 558 Output, Urine 1450 920 Patient 230 lb Weight Impression/Plan Impression/Plan Impression/Plan: [place] EOMI Chest mild crackles clear abd obese s/p amputaion Mr Ling is a patient is 67-year-old gentleman with past medical history of delirium tremors, alcoholic abuse with multiple previous admissions for alcohol detox, alcohol withdrawal seizures, hypertension, hyperlipidemia, diabetes on insulin, atrial fibrillation on Eliquis, CAD, mitral regurgitation status post MVR, COPD (not on home oxygen, hepatitis C status post treatment, staph aureus endocarditis, CKD, Waldenstrm's macroglobulinemia, colon/rectal cancer (status post surgery), prostate cancer(status post radiation), BPH and L BLKA ( wheelchair bound). He presented to [facility] on 08/26/2017 complaining of shortness of breath ISSUES REsolved resp failure due to HFpEF Prob does have copd needs out pt eval Morbid obesity with signs of patrice DM Afib YVROSE ETOH use BPH SIg anemia requiring transfusions COnt present rx will follow as out pt / pt given my phone number pt is stable
== END 2017-08-30 13:18 | DRG 291 ==
LOC: ERH 11:56 → ERHI 16:52 → 1NO 16:52 → ENTRNSPT 17:45 → EDTRNSPT 18:04 → EDTRNSPTSTS 18:04 → 1NO 18:17 → CMPTRNSPT 18:32 → 1NO 08-28 08:21 → ENPENDDIS 08-30 11:38 → 1NO 08-30 13:18
PROVIDERS: Internal Medicine Adolescent Medicine; Physician Assistant; Student in an Organized Health Care Education/Training Program
PROC: 30243N1 Transfusion of Nonautologous Red Blood Cells into Central Vein, Percutaneous Approach (ICD-10-PCS; principal; 2017-08-25)
DX: I13.0 Hypertensive heart and chronic kidney disease with heart failure and stage 1 through stage 4 chronic kidney disease, or unspecified chronic kidney disease (principal); J96.01 Acute respiratory failure with hypoxia; N17.9 Acute kidney failure, unspecified; I50.33 Acute on chronic diastolic (congestive) heart failure; J44.1 Chronic obstructive pulmonary disease with (acute) exacerbation; N18.4 Chronic kidney disease, stage 4 (severe); E66.2 Morbid (severe) obesity with alveolar hypoventilation; E11.22 Type 2 diabetes mellitus with diabetic chronic kidney disease; I48.91 Unspecified atrial fibrillation; E87.70 Fluid overload, unspecified; Z79.4 Long term (current) use of insulin; Z72.0 Tobacco use; Z79.01 Long term (current) use of anticoagulants; Z89.512 Acquired absence of left leg below knee; Z85.79 Personal history of other malignant neoplasms of lymphoid, hematopoietic and related tissues; G47.33 Obstructive sleep apnea (adult) (pediatric); D64.9 Anemia, unspecified; E87.71 Transfusion associated circulatory overload; E78.5 Hyperlipidemia, unspecified; I34.0 Nonrheumatic mitral (valve) insufficiency; Z86.19 Personal history of other infectious and parasitic diseases; C88.0 Waldenstrom macroglobulinemia; Z85.46 Personal history of malignant neoplasm of prostate; Z85.038 Personal history of other malignant neoplasm of large intestine; Z92.3 Personal history of irradiation; N40.0 Benign prostatic hyperplasia without lower urinary tract symptoms; Z99.3 Dependence on wheelchair; Z79.82 Long term (current) use of aspirin; F10.10 Alcohol abuse, uncomplicated; F41.9 Anxiety disorder, unspecified; M19.90 Unspecified osteoarthritis, unspecified site; M54.9 Dorsalgia, unspecified; F32.9 Major depressive disorder, single episode, unspecified
CPT/HCPCS: 1NP; 36592; 71045; 73030-RT; 77001; 82436; 86920; 86922; 87804; 87804-59; 93005; 93010; 93306; 96374; 99291; J0131; J1940; J2920; J2997; J3490

== ENCOUNTER 2017-11-09 04:25 | Inpatient (IN) | payer OTHER, MEDICARE ==
[~2017-11-09] VITALS: Ht 180.3 cm; Wt 109.8 kg
[2017-11-09] VITALS (8 sets, daily range): BP systolic 160–188; BP diastolic 82–120
[~2017-11-09 04:25] MED LIST changes: +ACEPHEN650 M1 PR; +DULCOLAX10 M1 RC; +FLEET ENEMA133 ML RC; +FUROSEMIDE40 M1 PO; +MILK OF MA400 MG/52 PO; +NICOTINE PATCH1 EAC2 TOP; +PAIN RELIEF325 MG PO; +PREDNISONE10 M2 PO; +PROAIR HFA8.5 GM INH
--- NOTE | 2017-11-09 05:05 | ED DYSPNEA/ASTHMA COMPLAINT ---
History of Present Illness General Chief Complaint: Dyspnea (COPD, CHF, Other) Stated Complaint: BIBAFOR EVAL SHORT OF BREATH Source: patient, old records, EMS Exam Limitations: no limitations Vital Signs & Intake/Output Vital Signs & Intake/Output Vital Signs Date Time Temp Pulse Resp B/P B/P Pulse O2 O2 Flow FiO2 Mean Ox Delivery Rate 11/09 1446 97.7 73 20 180/84 11/09 1446 97.7 73 20 180/74 97 Room Air Room Air 11/09 1339 97.7 90 20 183/92 98 Room Air 11/09 1204 97.1 88 20 166/81 97 Room Air 11/09 0936 97.6 98 20 188/90 95 Room Air 11/09 0930 97.6 98 20 188/90 11/09 0720 98.8 102 20 164/100 11/09 0716 98.8 102 20 164/100 95 Room Air Room Air 11/09 0632 96 11/09 0507 96 11/09 0447 96 Room Air 11/09 0430 97.4 68 24 138/78 100 Nasal 4.0L Cannula Allergies Coded Allergies: NO KNOWN ALLERGIES (UNKNOWN 12/05/16) Reconcile Medications Acetaminophen (Pain Relief) 325 MG TABLET 2 TAB PO Q4H PRN PAIN/TEMP/>101 ( Reported) Acetaminophen (Acephen) 650 MG SUPP.RECT 1 SUPP PA Q4H PRN PAIN/TEMP>101 ( Reported) Albuterol Sulfate (Proair Hfa) 90 MCG HFA.AER.AD 2 PUFF INH Q6H PRN RESP. ( Reported) Amlodipine Besylate (Norvasc) 10 MG TABLET 1 TAB PO DAILY Blood Pressure Apixaban (Eliquis) 5 MG TABLET 1 TAB PO BID afib Aspirin (Ecotrin*) 81 MG TABLET.DR 1 TAB PO DAILY HEART/BLOOD Bisacodyl (Dulcolax) 10 MG SUPP.RECT 1 SUP RC DAILY PRN CONSTIPATION ( Reported) Budesonide/Formoterol Fumarate (Symbicort 160-4.5 Mcg Inhaler) 160 MCG-4.5 MCG/ ACTUATION HFA.AER.AD 2 PUF INH BID COPD Ferrous Sulfate 325 MG (65 MG IRON) TABLET 1 TAB PO DAILY IRON, VITAMIN ( Reported) Folic Acid 1 MG TABLET 1 TAB PO DAILY supplementation Furosemide 40 MG TABLET 1 TAB PO DAILY CHF Gabapentin 300 MG CAPSULE 2 CAP PO TID NERVE PAIN Hydralazine HCl 25 MG TABLET 1 TAB PO TID Blood pressure Insulin Detemir (Levemir Flextouch) 100 UNIT/ML (3 ML) INSULN.PEN 20 UNITS SC DAILY DIABETES (Reported) Ipratropium/Albuterol Sulfate (Iprat-Albut 0.5-3(2.5) MG/3 Ml) 0.5 MG-3 MG (2.5 MG BASE)/3 ML AMPUL.NEB 1 INH PO BID BREATHING PROBLEMS (Reported) Magnesium Hydroxide (Milk Of Magnesia) 400 MG/5 ML ORAL.SUSP 30 ML PO DAILY PRN NO BM IN 3 DAYS (Reported) Metoprolol Succ XL (Toprol XL) 25 MG TAB 1 TAB PO DAILY HEART (Reported) Na Phos,M-B/Na Phos,Di-Ba (Fleet Enema) 19 GRAM-7 GRAM/118 ML ENEMA 1 E RC DAILY PRN CONSTIPATION (Reported) Nicotine (Nicotine Patch) 14 MG/24 HOUR PATCH.TD24 14 MG TOP DAILY smoking cessation Omeprazole 20 MG CAPSULE.DR 1 CAP PO DAILY GI (Reported) Prednisone 10 MG TABLET 1 TAB PO DAILY COPD exacerbation Sertraline HCl 50 MG TABLET 1 TAB PO 0800 depression/anxiety Tamsulosin HCl (Flomax) 0.4 MG CAP.ER.24H 1 CAP PO 1700 PROSTATE (Reported) Thiamine HCl (Vitamin B-1) 100 MG TABLET 1 TAB PO DAILY supplementation Trazodone HCl 50 MG TABLET 0.25 TAB PO QPM SLEEP (Reported) Trazodone HCl 100 MG TABLET 1 TAB PO 2200 insomnia Core Measure Meds Pre-Hospital aspirin, Eliquis Triage Note: BIBA FROM HOME FOR SOB. PER EMS PT SPO2 HIGH 90'S ON RA. PLACED ON NC AT 4 LITERS VIA NC BY EMS. PT HERE 96-97% RA. PER EMS PT HAD ELEVATED BP IN 200'S. PT GIVEN 2 NITROS BY EMS . PT DENIED/DENIES CP. PT IS A CURRENT SMOKER AND SMELLS OF TOBACCO. CURRENT BP 130'S. Triage Nurses Notes Reviewed? yes Onset: yesterday Duration: day(s):, constant, continues in ED Timing: recent history Severity: moderate Activities at Onset: rest Prior Episodes/Possible Cause: frequent episodes Modifying Factors: Worsens With: movement. Associated Symptoms: anxiety, cough, wheezing HPI: 1 day prior to admission patient complains of crush nonproductive cough shortness of breath worse with exertion. He denies fever chills chest pain nausea vomiting diarrhea abdominal pain dysuria rash headache bleeding. (Paolo Pastrana MD) Past History Travel History Traveled to [place] past 21 day No Medical History Any Pertinent Medical History? 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 FH: diabetes mellitus FH: stroke FHx: prostate cancer PATERNAL GRANDMOTHER, ; Cause: Colon cancer. MOTHER, , Age 87; Cause: Old age. Hx Contributory? No (Paolo Pastrana MD) Review of Systems Review of Systems Constitutional: Reports: see HPI, malaise. EENTM: Reports: no symptoms. Respiratory: Reports: see HPI, cough, short of breath. Denies: sputum production. Cardiovascular: Reports: no symptoms. GI: Reports: no symptoms. Genitourinary: Reports: no symptoms. Musculoskeletal: Reports: no symptoms. Skin: Reports: no symptoms. Neurological/Psychological: Reports: no symptoms. Hematologic/Endocrine: Reports: no symptoms. Immunologic/Allergic: Reports: no symptoms. All Other Systems: Reviewed and Negative (Paolo Pastrana MD) Physical Exam Physical Exam General Appearance: well developed/nourished, alert, awake, anxious, mild distress, obese Head: atraumatic, normal appearance Eyes: Bilateral: normal appearance, PERRL, EOMI. 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 Yes No ASA d/t Pharmacological CI CVA/TIA Diagnosis No Sepsis Present: No Sepsis Focused Exam Completed? No (Victoriano ARCEO,Paolo) Progress Differential Diagnosis: asthma, altitude sickness, CHF, COPD, pneumonia Plan of Care: Orders Procedure Date/time Status CBC WITHOUT DIFFERENTIAL 11/10 0600 Active BASIC ELECTROLYTES PLUS BUN&CR 11/10 0600 Active Renal Dialysis Diet 11/09 B Active Pathway - chart 11/09 1449 Active House Staff 11/09 1449 Active Patient Data 11/09 1449 Active Patient Data 11/09 1315 Active ED Holding Orders 11/09 1231 Active Admit to inpatient 11/09 1231 Active Vital Signs 11/09 1231 Active Code Status 11/09 1231 Active FingerStick- Glucose 11/09 0730 Active CASE MANAGEMENT CONSULT 11/09 0725 Active CIWA 11/09 0710 Active Intake & Output 11/09 0654 Active TROPONIN LEVEL 11/09 0445 Complete MAGNESIUM 11/09 0445 Complete ETHANOL 11/09 0445 Complete COMPREHENSIVE METABOLIC PANEL 11/09 0445 Complete CBC WITHOUT DIFFERENTIAL 11/09 0445 Complete B-TYPE NATRIURETIC PEP (BNP) 11/09 0445 Complete EKG 11/09 0434 Active TRC EVALUATION (GEN) 11/09 UNK Active VTE Mechanical Prophylaxis 11/09 UNK Active Current Medications Sig/Aevry Start time Last Medication Dose Stop Time Status Admin Amlodipine Besylate 10 MG DAILY 11/10 0900 AC (Norvasc) Furosemide 40 MG DAILY 11/10 09 CAN (Lasix) Metoprolol Succinate 25 MG DAILY 05/18 0900 AC (Toprol XL) Prednisone 10 MG DAILY 11/10 0900 CAN Sertraline HCl 50 MG 0800 11/10 0800 AC (Zoloft) Trazodone HCl 100 MG 2200 11/09 2200 AC (Desyrel) Trazodone HCl 12.5 MG QPM 11/09 2100 AC (Desyrel) Tamsulosin HCl 0.4 MG 1700 11/09 1700 AC (Flomax) Acetaminophen 650 MG Q6P PRN 11/09 1500 AC (Tylenol) Acetaminophen 650 MG Q4P PRN 11/09 1500 AC (Tylenol) Lorazepam 2 MG Q6 11/09 1500 AC 11/09 (Ativan) 1547 Lorazepam 0 Q1P PRN 11/09 1500 AC (Ativan) Magnesium Hydroxide 30 ML DAILY NEEDED PRN 11/09 1500 AC (Milk Of Magnesia) Sodium Chloride 1,000 ML Q13H 11/09 1500 AC 11/09 (Normal Saline 0.9%) 1547 Nicotine 14 MG DAILY 11/09 1457 AC 11/09 (Nicotine Cq) 1547 Ferrous Sulfate 325 MG TID 11/09 1456 AC (Feosol) Insulin Detemir 16 UNITS BID 11/09 1455 AC 11/09 (Levemir) 1547 Omeprazole 20 MG DAILY AC 11/09 1455 AC 11/09 (Prilosec) 1547 Aspirin Buffered 81 MG DAILY 11/09 1452 AC (Ecotrin) Folic Acid 1 MG DAILY 11/09 1452 AC 11/09 (Folic Acid) 1547 Gabapentin 600 MG TID 11/09 1452 AC 11/09 (Neurontin) 1547 Thiamine HCl 100 MG DAILY 11/09 1452 AC 11/09 (Vitamin B1) 1547 Apixaban 5 MG BID 11/09 1451 UNVr (Eliquis) Budesonide/ 2 PUF BID 11/09 1451 AC Formoterol Fumarate (Symbicort) Hydralazine HCl 25 MG TID 11/09 1451 AC (Apresoline) Laboratory Tests 11/09/17 0512: Anion Gap 17 H, Estimated GFR 15 L, BUN/Creatinine Ratio 11.8, Glucose 103 H, Calcium 8.8, Magnesium 2.0, Total Bilirubin 0.3, AST 17, ALT 12 L, Alkaline Phosphatase 76, Troponin I 0.08, Zrf-F-Pctiplydcev Pept 2500 H, Total Protein 6.2 L, Albumin 3.8, Globulin 2.4, Albumin/Globulin Ratio 1.6, CBC w Diff NO MAN DIFF REQ, RBC 3.68 L, MCV 89.5, MCH 30.1, MCHC 33.6, RDW 18.0 H, MPV 7.0 L, Gran % 78.7 H, Lymphocytes % 10.4 L, Monocytes % 7.8, Eosinophils % 2.9, Basophils % 0.2, Absolute Granulocytes 3.3, Absolute Lymphocytes 0.4 L, Absolute Monocytes 0.3, Absolute Eosinophils 0.1, Absolute Basophils 0, Serum Alcohol 64.0 Diagnostic Imaging: Viewed by Me: Radiology Read. Discussed w/RAD: Radiology Read. CXR Impression: No evidence for acute disease. Stable cardiomegaly. Initial ED EKG: normal axis, normal QRS complex, AFIB, no ST T wave changes Prior EKG: unchanged Rhythm Strip: atrial fibrillation Hand-Off Endorsed To: Jonathan Tolentino MD Endorsed Time: 0700 Pending: other (clinical status) Comments: Feels not breathing right, lungs clear sats normal. Additional neb ordered. (Paolo Pastrana MD) Comments: PTSTATES THAT HEHAS BEEN OVERDOING ITON THE ALCOHOL LATELY AND TAHT HE IS NOW "SHAKING LIKE A LEAK." PTHAS A HISTORY OF ALCOHOL WITHDRAWAL WITH DT'S. CIWA SCORE 13. WILL GIVE ATIVAN AND OBTAINED CASE MANAGEMENT CONSULTATION. (Jonathan Tolentino MD) Departure Departure Condition: Stable Referrals: Maida Bellamy MD Additional Instructions: Stop smoking Departure Forms: Customer Survey General Discharge Information (Paolo Pastrana MD) Departure Disposition: STILL A PATIENT Clinical Impression Primary Impression: Alcohol abuse with physiological dependence Secondary Impressions: Atrial fibrillation, CKD (chronic kidney disease), COPD with exacerbation, Encounter for smoking cessation counseling Admission Note Spoke With: Staci Khan MD Documentation of Exam: Documentation of any treatments & extenuating circumstances including Concerns Regarding Discharge (functional status, medication knowledge or non-compliance, living conditions, etc.) that warrant an admission rather than observation: [ Patient has a history of withdrawal seizures his personal statement. Patient has elevated CIWA score. Patient will require admission and he will need Ativan per CIWA. Patient will need social work consultation for further treatment upon discharge.] Alcohol Withdrawl Admission ED Alcohol Detox Admission d/t: DTs/Seizure w/i last year (Rajan ARCEO,Jonathan Gao) Critical Care Note Critical Care Note Critical Care Time: non-applicable (Victoriano ARCEO,Paolo)
--- NOTE | 2017-11-09 05:23 | RADIOLOGY REPORT ---
EXAMINATION: CHEST 1 VIEW CLINICAL INFORMATION: Cough, shortness of breath. COMPARISON: August 26, 2017. TECHNIQUE: An AP view of the chest is provided. FINDINGS: The cardiac silhouette is enlarged, but stable. Intact midline sternal wires are present. The mediastinal and hilar contours are unremarkable. There are neither pleural effusions nor pneumothoraces. There are no consolidations. The osseous structures are unremarkable. IMPRESSION: No evidence for acute disease. Stable cardiomegaly.
[2017-11-09 05:28] LABS: ABSOLUTE BASOPHIL COUNT 0 /CUMM (0.0-0.2); ABSOLUTE EOSINOPHIL COUNT 0.1 /CUMM (0.0-0.7); ABSOLUTE GRANULOCYTE CT 3.3 /CUMM (1.4-6.5); ABSOLUTE LYMPH COUNT 0.4 /CUMM (1.2-3.4); ABSOLUTE MONOCYTE COUNT 0.3 /CUMM (0.10-0.60); BASOPHIL % 0.2 % (0.0-2.0); EOSINOPHIL % 2.9 % (0-5); GRANULOCYTE % 78.7 % (42.2-75.2); MEAN CORPUSCULAR HGB 30.1 PG (27.0-31.0); MEAN CORPUSCULAR HGB CONC 33.6 G/DL (33.0-37.0); MEAN CORPUSCULAR VOLUME 89.5 FL (80.0-94.0); PLATELET COUNT 161 /CUMM (130-400); RED BLOOD CELL CT 3.68 /CUMM (4.70-6.10); WHITE BLOOD CELL COUNT 4.2 /CUMM (4.8-10.8)
--- NOTE | 2017-11-09 13:40 | History & Physical ---
[facility] 11/09/17 1339: General Information and HPI MD Statement: I have seen and personally examined BRANDYN BORDEN and documented this H&P. The patient is a 67 year old M who presented with a patient stated chief complaint of visual hallucination, dizziness, shortness of breath, nausea and shakiness in her hands since yesterday. []. Source of Information: patient, old records Exam Limitations: no limitations History of Present Illness: 67 YO M smoker (half a pack/day since the age of 19) with PMH of Atrial fibrillation on Eliquis, HTN, HLD, HFpEF, GERD, COPD/obstructive sleep apnea, CKD stage IV, alcohol dependency, alcohol withdrawal seizures, anxiety, DM, CAD, mitral regurgitation status post MVR, 2010 with a Maze procedure, Hepatitis C status post treatment, staph aureus endocarditis, Waldenstrm's macroglobulinemia, Colon/rectal cancer (status post surgery), Prostate cancer( status post radiation), BPH and L BKA (wheelchair bound) presented to ED with with chief complaint of visual hallucination, nausea, dizziness and shortness of breath since yesterday. Patient reported that he was in his usual state of health since yesterday when he started to have nausea, tremors in hands, shortness of breath and visual hallucination. Patient reported that he is drinking alcohol 2-1/2 paint for last couple of weeks. He reported that he was admitted in hospital for call detox 3-5 times last year. Patient reported that his last drink was yesterday at 5 PM. He reported that he was admitted with alcohol induced seizures in the past. Patient denied chest pain, palpitation, vomiting, chills, fever, loss of consciousness, orthopnea, diarrhea, constipation, blood in urine and dysuria. Last time patient was admitted to [facility] in August 2017 with hypoxic respiratory failure due to acute on chronic CHF exacerbation. He was discharged to [facility] last time. He is living with his friend who help him with daily routine work in shopping, cooking. 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 Patient is following Dr. Ann for his heart problem. ED course: Vitals: Temperature 97.4, pulse 68, respiratory 24, blood pressure 138/78, oxygen saturation 96% on room air Labs: WBC count 4.2, hemoglobin 11.1, hematocrit 33.0, platelet count 161, sodium 140, potassium 4.1, BUN 47, creatinine 4.0, anion gap 17, GFR 15, BUNs/ creatinine ratio 11.8, glucose 103, calcium 8.8, magnesium 2.0, AST 70, AST 12, troponin 0.08, proBNP 2500 Allergies/Medications Allergies: Coded Allergies: NO KNOWN ALLERGIES (UNKNOWN 12/05/16) Home Med list Acetaminophen (Pain Relief) 325 MG TABLET 2 TAB PO Q4H PRN PAIN/TEMP/>101 ( Reported) Acetaminophen (Acephen) 650 MG SUPP.RECT 1 SUPP SC Q4H PRN PAIN/TEMP>101 ( Reported) Albuterol Sulfate (Proair Hfa) 90 MCG HFA.AER.AD 2 PUFF INH Q6H PRN RESP. ( Reported) Amlodipine Besylate (Norvasc) 10 MG TABLET 1 TAB PO DAILY Blood Pressure Apixaban (Eliquis) 5 MG TABLET 1 TAB PO BID afib Aspirin (Ecotrin*) 81 MG TABLET.DR 1 TAB PO DAILY HEART/BLOOD Bisacodyl (Dulcolax) 10 MG SUPP.RECT 1 SUP RC DAILY PRN CONSTIPATION ( Reported) Budesonide/Formoterol Fumarate (Symbicort 160-4.5 Mcg Inhaler) 160 MCG-4.5 MCG/ ACTUATION HFA.AER.AD 2 PUF INH BID COPD Ferrous Sulfate 325 MG (65 MG IRON) TABLET 1 TAB PO DAILY IRON, VITAMIN ( Reported) Folic Acid 1 MG TABLET 1 TAB PO DAILY supplementation Furosemide 40 MG TABLET 1 TAB PO DAILY CHF Gabapentin 300 MG CAPSULE 2 CAP PO TID NERVE PAIN Hydralazine HCl 25 MG TABLET 1 TAB PO TID Blood pressure Insulin Detemir (Levemir Flextouch) 100 UNIT/ML (3 ML) INSULN.PEN 20 UNITS SC DAILY DIABETES (Reported) Ipratropium/Albuterol Sulfate (Iprat-Albut 0.5-3(2.5) MG/3 Ml) 0.5 MG-3 MG (2.5 MG BASE)/3 ML AMPUL.NEB 1 INH PO BID BREATHING PROBLEMS (Reported) Magnesium Hydroxide (Milk Of Magnesia) 400 MG/5 ML ORAL.SUSP 30 ML PO DAILY PRN NO BM IN 3 DAYS (Reported) Metoprolol Succ XL (Toprol XL) 25 MG TAB 1 TAB PO DAILY HEART (Reported) Na Phos,M-B/Na Phos,Di-Ba (Fleet Enema) 19 GRAM-7 GRAM/118 ML ENEMA 1 E RC DAILY PRN CONSTIPATION (Reported) Nicotine (Nicotine Patch) 14 MG/24 HOUR PATCH.TD24 14 MG TOP DAILY smoking cessation Omeprazole 20 MG CAPSULE.DR 1 CAP PO DAILY GI (Reported) Prednisone 10 MG TABLET 1 TAB PO DAILY COPD exacerbation Sertraline HCl 50 MG TABLET 1 TAB PO 0800 depression/anxiety Tamsulosin HCl (Flomax) 0.4 MG CAP.ER.24H 1 CAP PO 1700 PROSTATE (Reported) Thiamine HCl (Vitamin B-1) 100 MG TABLET 1 TAB PO DAILY supplementation Trazodone HCl 50 MG TABLET 0.25 TAB PO QPM SLEEP (Reported) Trazodone HCl 100 MG TABLET 1 TAB PO 2200 insomnia Past History Travel History Traveled to [place] past 21 day No Medical History Neurological: delerium tremens, seizure EENT: NONE Cardiovascular: AFIB, CHF, hypertension, mitral regurgitation, Staph aureus endocarditis Respiratory: COPD, emphysema Gastrointestinal: GERD, Diarrhea, nausea Hepatic: hepatitis C Renal: chronic kidney disease Musculoskeletal: degen joint disease, CHRONIC BACK PAIN Psychiatric: alcohol dependence, anxiety Endocrine: diabetes Blood Disorders: anemia, Waldenstrohm's macroglobulinemia Cancer(s): colon/rectal cancer (operated), prostate cancer (treated), 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 FH: diabetes mellitus FH: stroke FHx: prostate cancer PATERNAL GRANDMOTHER, ; Cause: Colon cancer. MOTHER, , Age 87; Cause: Old age. Psychosocial History Who Do You Live With? self Services at Home: Nursing Primary Language: Upper Sorbian ETOH Use: heavy use Illicit Drug Use: denies illicit drug use Functional Ability ADLs Independent: dressing, eating, toileting, bathing. Ambulation: wheelchair IADLs Independent: shopping, housework, finances, food prep, telephone, transportation , medication admin. Review of Systems Review of Systems Constitutional: Denies: chills, fever. EENTM: Reports: no symptoms. Cardiovascular: Denies: chest pain, orthopena, palpitations. Respiratory: Reports: short of breath. Denies: cough, sputum production. GI: Reports: nausea. Denies: abdominal pain, constipation, diarrhea, vomiting. Genitourinary: Reports: no symptoms. Neurological/Psychological: Reports: anxiety. Exam & Diagnostic Data Last 24 Hrs of Vital Signs/I&O Vital Signs Date Time Temp Pulse Resp B/P B/P Pulse O2 O2 Flow FiO2 Mean Ox Delivery Rate 11/09 1339 97.7 90 20 183/92 98 Room Air 11/09 1204 97.1 88 20 166/81 97 Room Air 11/09 0936 97.6 98 20 188/90 95 Room Air 11/09 0930 97.6 98 20 188/90 11/09 0720 98.8 102 20 164/100 11/09 0716 98.8 102 20 164/100 95 Room Air Room Air 11/09 0632 96 11/09 0507 96 11/09 0447 96 Room Air 11/09 0430 97.4 68 24 138/78 100 Nasal 4.0L Cannula Intake & Output 11/09 1600 11/09 0800 11/09 0000 Intake Total Output Total Balance Patient 230 lb Weight Physical Exam General Appearance Alert, Oriented X3, Cooperative Skin No Rashes Skin Temp/Moisture Exam: Warm/Dry Sepsis Skin Exam (color): Normal for Ethnicity HEENT Atraumatic, PERRLA, EOMI Neck Supple Assessment/Plan Assessment: 67 YO M smoker (half a pack/day since the age of 19) with PMH of Atrial fibrillation on Eliquis, HTN, HLD, HFpEF, GERD, COPD/obstructive sleep apnea, CKD stage IV, alcohol dependency, alcohol withdrawal seizures, anxiety, DM, CAD, mitral regurgitation status post MVR, 2010 with a Maze procedure, Hepatitis C status post treatment, staph aureus endocarditis, Waldenstrm's macroglobulinemia, Colon/rectal cancer (status post surgery), Prostate cancer( status post radiation), BPH and L BKA (wheelchair bound) presented to ED with with chief complaint of visual hallucination, nausea, dizziness and shortness of breath since yesterday. We'll admit the patient on general medicine floor to treat for following problems: Alcohol detox: -We will keep the patient on CIWA protocol and we will keep him on 2 mg Ativan every 6 hourly -Supplemental thiamine, folic acid and vitamin B12 -Zofran for nausea and vomiting as needed -Follow pain pathway to treat pain as needed -Seizure precautions -Fall precautions -His serum alcohol level is 64. Acute on chronic kidney injury: -Patient had stage IV chronic kidney disease -Gentle IV hydration as needed -Avoid nephrotoxic medications -Check input and output -Nephrology consult -Holding his lasix Elevated anion gap: -Probably due to acute on chronic kidney injury -We will give patient IV gentle hydration -We will monitor BP -We will check his lactic acid. History of hypertension hyperlipidemia: -We will continue his metoprolol and amlodipine -Continue Lipitor History of smoking: -Smoking cessation counseling -We will give patient nicotine patch as needed History of diabetes: -Accu-Cheks -Insulin level levemir 16 units twice a day -Insulin NovoLog according to sliding scale -HbA1c History of GERD: -Continue omeprazole History of CAD and disastolic CHF: -Continue aspirin -Holding his lasix due to kidney injury H/O A.fib on anticoagulation: -Continue eliquis DVT prophylaxis: Mechanical and patient already on Eliquis CODE STATUS: Full code As Ranked By This Provider Problem List: 1. Alcohol withdrawal Core Measures/Misc (03/12) Acute Coronary Syndrome ACS Diagnosis: No Congestive Heart Failure Congestive Heart Failure Diagnosis No Cerebrovascular Accident CVA/TIA Diagnosis: No VTE (View Protocol) VTE Risk Factors Age>40 No Mechanical VTE Prophylaxis d/t N/A MechProphylax Ordered No VTE Pharm Prophylaxis d/t NA PharmProphylax ordered Sepsis (View protocol) Sepsis Present: No Aleksandra Singleton 11/09/17 1626: Resident Review Statement Resident Statement: examined this patient, discussed with mechanical intern Other Findings: Patient is a 67-year-old woman with a past medical history significant for alcohol dependence with alcohol related seizures, history of anxiety depression, history of mitral regurgitation status post MVR, 2010 with a Maze procedure, ) diabetes mellitus, coronary artery disease COPD/obstructive sleep apnea, chronic kidney disease stage IV,Atrial fibrillation on Eliquis, history of hypertension and hyperlipidemia, heart failure with preserved ejection fraction, Hepatitis C status post treatment, staph aureus endocarditis, Waldenstrm's macroglobulinemia, Colon/rectal cancer (status post surgery), Prostate cancer( status post radiation), BPH and L BKA (wheelchair bound history of current every day smoker presented to the ED with a chief complaints of shortness of breath, bilateral hand tremors and visual hallucinations. Patient was hospitalized in August 2017 for acute decompensated heart failure was discharged to [facility], he was discharged from the facility in September. Afterwards patient has been drinking heavily about 2-1/2 pints of pints of vodka on a daily basis, last drink was 5 PM yesterday. Patient reported that since yesterday patient reported that since yesterday he has been having been having shortness of breath at rest without any chest discomfort palpitations sweating, feeling very anxious .Also reported Reported visual hallucinations, sweating and extreme shakes, couldn't able to lie flat all night due to shortness of breath(likely due to anxiety) and came to the ER and called 911 1 for help. In the ER patient was saturating around 90% he was put on 4 L of oxygen through nasal cannula that resulted in improvement in her saturations to 96%. Chest x- ray didn't show any acute pulmonary pathology. Vitals on admission the patient 97.8, pulse 68, respiratory 24, blood pressure 138/78 on 4 L initially now on room air. General Appearance: Alert, No Acute Distress Skin: Grossly normal HEENT: PEERLA Neck: Supple, No JVD Cardiovascular: Regular Rate, Normal S1, Normal S2, No Murmurs Lungs: Slight decrease aeration bilaterally with some wheeze. Abdomen: Normal Bowel Sounds, slight abdominal tenderness. Neurological: Grossly intact grossly intact Extremities: Vascular: Normal Pulses Pertinent labs as above Chest x-ray normal Assessment Alcohol intoxication withdrawal History of atrial fibrillation on eliquis History of obstructive sleep apnea/COPD History of heart failure with preserved ejection fraction History of chronic kidney disease stage IV History of hypertension hyperlipidemia History of anxiety depression History of diabetes Alcohol intoxication withdrawal Admit the patient to the GenMed floor * Start the patient on scheduled Ativan 2 mg every 6 hours along with Ativan as needed per CIWA protocol. * Start thiamine and folate and vitamin B12's * Seizure and fall precautions * Social consult * Promote oral hydration * Zofran as needed for nausea History of atrial fibrillation * Continue eliquis History of obstructive sleep apnea/COPD * Continue home medications. History of heart failure with preserved ejection fraction: * Hold Lasix today due to worsening kidney function repeat BEP. * Resume Lasix if creatinine is stable History of chronic kidney disease stage IV * Slightly elevated creatinine from baseline * Continue gentle hydration * Repeat BEP tomorrow History of insulin-dependent diabetes mellitus * Continue Levemir and NovoLog sliding scale with Accu-Cheks. DVT prophylaxis with elliquis Patient is full code " Patient has been drinking 2-1/2 pints of vodka on a daily basis, last drink was 5 PM yesterday. He mentioned that since yesterday he has been having shortness of breath at rest without any chest discomfort palpitations sweating. Also reported Reported
--- NOTE | 2017-11-09 16:10 | Admission Certification ---
Admission Certification Certification Statement - As attending physician, I certify that at the time of - admission, based on clinical presentation, severity of - symptoms, need for further diagnostic testing and - therapeutic interventions, and risk of adverse outcomes - without in-hospital treatment, in my clinical assessment, - this patient requires an acute hospital stay for a minimum - of two nights or longer. I have also considered psychsocial - factors such as support system, advanced age, financial - issues, cognitive issues, and failed out-patient treatments, - past re-admission history, safety of patient, and lack of - compliance as applicable. Specific rationale supporting this admission is: Alcohol abuse and detox
--- NOTE | 2017-11-09 16:10 | PN- Att Addend ---
Attending Addendum Attending Brief Note Patient seen and examined in the emergency room. Plan of care discussed with the medical team and the patient. Available lab work and radiology test reports were reviewed. In summary this is a 67-year-old male with past medical history of Atrial fibrillation on Eliquis, hypertension, hyperlipidemia, heart failure with preserved ejection fraction, GERD, COPD/obstructive sleep apnea, chronic kidney disease stage IV, alcohol dependency, alcohol withdrawal seizures anxiety , diabetes, CAD, mitral regurgitation status post MVR, 2010 with a Maze procedure, Hepatitis C status post treatment, staph aureus endocarditis, Waldenstrm's macroglobulinemia, Colon/rectal cancer (status post surgery), Prostate cancer(status post radiation), BPH and L BLKA (wheelchair bound) presented to ED with increased difficulty breathing. Patient apparently has been feeling anxious and has been drinking excessively over last several weeks. He is interested in alcohol rehabilitation and detox. Family social history was reviewed. Vital Signs Date Time Temp Pulse Resp B/P B/P Pulse O2 O2 Flow FiO2 Mean Ox Delivery Rate 11/09 1446 97.7 73 20 180/84 11/09 1446 97.7 73 20 180/74 97 Room Air Room Air 11/09 1339 97.7 90 20 183/92 98 Room Air 11/09 1204 97.1 88 20 166/81 97 Room Air 11/09 0936 97.6 98 20 188/90 95 Room Air 11/09 0930 97.6 98 20 188/90 11/09 0720 98.8 102 20 164/100 11/09 0716 98.8 102 20 164/100 95 Room Air Room Air 11/09 0632 96 11/09 0507 96 11/09 0447 96 Room Air 11/09 0430 97.4 68 24 138/78 100 Nasal 4.0L Cannula Intake & Output 11/09 1600 11/09 0800 11/09 0000 Intake Total Output Total Balance Patient 230 lb Weight Exam: General: Patient awake alert oriented without any distress; appears slightly anxious CVS: S1 plus S2 without any murmur or gallops Chest: Few scattered crepitation without any wheeze. There is no respiratory distress. 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 alert oriented without any focal neuro deficit and follows commands appropriately; has bilateral hand tremors Extremities: No edema; no clubbing or cyanosis noted; left BKA noted Laboratory Tests 11/09/17 0512: Anion Gap 17 H, Estimated GFR 15 L, BUN/Creatinine Ratio 11.8, Glucose 103 H, Calcium 8.8, Magnesium 2.0, Total Bilirubin 0.3, AST 17, ALT 12 L, Alkaline Phosphatase 76, Troponin I 0.08, [id number] Pept 2500 H, Total Protein 6.2 L, Albumin 3.8, Globulin 2.4, Albumin/Globulin Ratio 1.6, CBC w Diff NO MAN DIFF REQ, RBC 3.68 L, MCV 89.5, MCH 30.1, MCHC 33.6, RDW 18.0 H, MPV 7.0 L, Gran % 78.7 H, Lymphocytes % 10.4 L, Monocytes % 7.8, Eosinophils % 2.9, Basophils % 0.2, Absolute Granulocytes 3.3, Absolute Lymphocytes 0.4 L, Absolute Monocytes 0.3, Absolute Eosinophils 0.1, Absolute Basophils 0, Serum Alcohol 64.0 Chest x-ray did not show any acute process Assessment * Alcohol abuse alcohol withdrawal * History of atrial fibrillation on eliquis * History of hypertension * History of heart failure with preserved ejection fraction * History of COPD * History of for obstructive sleep apnea * Chronic kidney disease stage IV Plan * Start Ativan 2 mg by mouth every 6; CIWA protocol * Continue home medications * Continue Levemir and sliding scale and monitor Accu-Checks * 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 * Repeat BEP tomorrow
[2017-11-10] VITALS (8 sets, daily range): BP systolic 150–174; BP diastolic 70–88
--- NOTE | 2017-11-10 07:12 | PN- Housestaff ---
Subjective Follow-up For: Alcohol withdrawal Subjective: No overnight events. Patient remained afebrile overnight. Seen and examined this morning. He denied any chest pain, nausea, vomiting, palpitation, anxiety, tremors, abdominal pain and dysuria. When I saw the patient this morning he was having his breakfast. Last night his CIWA was 9 and he received 1 extra dose of Ativan 2 mg. This morning his CIWA is low. We will taper his Ativan. Review of Systems Constitutional: Denies: chills, fever, weakness. EENTM: Reports: no symptoms. Cardiovascular: Denies: chest pain, orthopena, palpitations. Respiratory: Denies: cough, orthopnea, short of breath, sputum production. Gastrointestinal: Denies: abdominal pain, constipation, diarrhea, nausea, vomiting. Genitourinary: Reports: no symptoms. Neurological/Psychological: Reports: no symptoms. Objective Last 24 Hrs of Vital Signs/I&O Vital Signs Date Time Temp Pulse Resp B/P B/P Pulse O2 O2 Flow FiO2 Mean Ox Delivery Rate 11/10 0819 84 156/78 11/10 0818 84 156/78 11/10 0818 84 156/78 11/10 0656 98.6 84 20 156/78 98 11/10 0600 98.6 84 20 156/78 11/10 0214 98.2 81 20 174/88 94 11/10 0200 98.2 81 20 174/88 11/09 2300 98.7 87 22 160/82 11/09 2245 98.7 87 22 160/82 96 Room Air 11/09 2220 160/82 11/09 2000 98.5 90 22 170/100 11/09 1847 95 180/120 11/09 1844 95 180/120 11/09 1843 95 180/120 11/09 1643 98.0 95 22 180/120 98 Room Air 11/09 1622 98.0 95 22 180/120 11/09 1606 98.0 86 18 176/82 97 Room Air 11/09 1446 97.7 73 20 180/84 11/09 1446 97.7 73 20 180/74 97 Room Air Room Air 11/09 1339 97.7 90 20 183/92 98 Room Air 11/09 1204 97.1 88 20 166/81 97 Room Air Intake & Output 11/10 1600 11/10 0800 11/10 0000 Intake Total 480 Output Total 250 Balance 230 Intake, Oral 480 Number 1 Bowel Movements Output, Urine 250 Patient 230 lb Weight Weight Reported by Patient Measurement Method Physical Exam General Appearance: Alert, Oriented X3, Cooperative Skin Temp/Moisture Exam: Warm/Dry Sepsis Skin Exam (color): Normal for Ethnicity HEENT: Atraumatic, PERRLA, EOMI Neck: Supple Cardiovascular: Normal S1, Normal S2 Lungs: Clear to Auscultation Abdomen: Soft, No Tenderness Neurological: Normal Speech, Normal Tone, Left leg BKA, Rigth leg now edema and power 5/5 Extremities: No Edema Assessment/Plan Assessment: 67 YO M smoker (half a pack/day since the age of 19) with PMH of Atrial fibrillation on Eliquis, HTN, HLD, HFpEF, GERD, COPD/obstructive sleep apnea, CKD stage IV, alcohol dependency, alcohol withdrawal seizures, anxiety, DM, CAD, mitral regurgitation status post MVR, 2010 with a Maze procedure, Hepatitis C status post treatment, staph aureus endocarditis, Waldenstrm's macroglobulinemia, Colon/rectal cancer (status post surgery), Prostate cancer( status post radiation), BPH and L BKA (wheelchair bound) presented to ED with with chief complaint of visual hallucination, nausea, dizziness and shortness of breath since yesterday. We are following the patient for following problems: Alcohol detox: -We will keep the patient on CIWA protocol and we will taper his ativan to 1.5mg Q6 hourly. -Supplemental thiamine, folic acid and vitamin B12 -Zofran for nausea and vomiting as needed -Follow pain pathway to treat pain as needed -Seizure precautions -Fall precautions -His CIWA this morning was 3 Acute on chronic kidney injury:(improved) -Probably due to dehydration and patient was using Lasix. -Will encourage patient to drink orally. -Avoid nephrotoxic medications -Check input and output -Holding his lasix -His creatinine is improving today it's 3.7 -F/U renal USG to rule out obstructive uropathy. Elevated anion gap:(resolved) -Probably due to acute on chronic kidney injury -Today his anion gap is 10. With gentle IV fluid hydration and improving kidney function it had improved. Thrombocytopenia: -Patient has low platelet count -We will monitor it. History of hypertension hyperlipidemia: -We will continue his metoprolol and amlodipine -Continue hydralazine 25 mg 3 times a day -Continue Lipitor History of smoking: -Smoking cessation counseling -Continue nicotine patch as needed History of diabetes: -Accu-Cheks -Diabetic diet -Insulin level levemir 16 units twice a day -Insulin NovoLog according to sliding scale -His fasting blood sugar level is 84 today. History of GERD: -Continue omeprazole History of CAD and disastolic CHF: -Continue aspirin -Holding his lasix due to kidney injury H/O A.fib on anticoagulation: -Continue eliquis DVT prophylaxis: Mechanical and patient already on Eliquis CODE STATUS: Full code Problem List: 1. Alcohol withdrawal 2. [id number] kidney injury Pain Ratin Pain Location: none Pain Goal: Remain pain free Pain Plan: pain pathway Tomorrow's Labs & Rationales: bep
[2017-11-10 09:54] LABS: ABSOLUTE BASOPHIL COUNT 0 /CUMM (0.0-0.2); ABSOLUTE EOSINOPHIL COUNT 0.1 /CUMM (0.0-0.7); ABSOLUTE GRANULOCYTE CT 3.2 /CUMM (1.4-6.5); ABSOLUTE LYMPH COUNT 0.3 /CUMM (1.2-3.4); ABSOLUTE MONOCYTE COUNT 0.5 /CUMM (0.10-0.60); BASOPHIL % 0.3 % (0.0-2.0); EOSINOPHIL % 2.8 % (0-5); HEMATOCRIT 31.9 % (42-52); MEAN CORPUSCULAR HGB 30.5 PG (27.0-31.0); MEAN CORPUSCULAR HGB CONC 33.6 G/DL (33.0-37.0); MEAN CORPUSCULAR VOLUME 90.6 FL (80.0-94.0); MEAN PLATELET VOLUME 7.3 FL (7.4-10.4); PLATELET COUNT 124 /CUMM (130-400); RED BLOOD CELL CT 3.52 /CUMM (4.70-6.10); WHITE BLOOD CELL COUNT 4.1 /CUMM (4.8-10.8)
--- NOTE | 2017-11-10 10:17 | Cons- Nephrology ---
General Information and HPI Consulting Request Date of Consult: 11/10/17 Requested By: Ankush ARCEO,Chinmay Reason for Consult: Acute on chronic kidney disease Source of Information: patient, old records Exam Limitations: somnolent History of Present Illness: This 67-year-old gentleman is a history of chronic kidney disease, followed [facility] but also in the past in [place]. He is admitted now he says for an exacerbation of his COPD. He apparently was awake all evening and is now quite somnolent. He is arousable and denies any difficulties with voiding as of late. He denies any history of dysuria. Did not get to inquire with regards to nocturia. Apparently, he was hospitalized at [facility] in June 2017. Final diagnosis then was COPD exacerbation coupled with mild alcohol withdrawal, depression, acute on chronic kidney disease, hypertension, and a normocytic anemia. He is unable to give me much of a history given the fact that he just back to sleep. Allergies/Medications Allergies: Coded Allergies: NO KNOWN ALLERGIES (UNKNOWN 12/05/16) Home Med List: Acetaminophen (Pain Relief) 325 MG TABLET 2 TAB PO Q4H PRN PAIN/TEMP/>101 ( Reported) Acetaminophen (Acephen) 650 MG SUPP.RECT [address] Q4H PRN PAIN/TEMP>101 ( Reported) Albuterol Sulfate (Proair Hfa) 90 MCG HFA.AER.AD 2 PUFF INH Q6H PRN RESP. ( Reported) Amlodipine Besylate (Norvasc) 10 MG TABLET 1 TAB PO DAILY Blood Pressure Apixaban (Eliquis) 5 MG TABLET 1 TAB PO BID afib Aspirin (Ecotrin*) 81 MG TABLET.DR 1 TAB PO DAILY HEART/BLOOD Bisacodyl (Dulcolax) 10 MG SUPP.RECT 1 SUP RC DAILY PRN CONSTIPATION ( Reported) Budesonide/Formoterol Fumarate (Symbicort 160-4.5 Mcg Inhaler) 160 MCG-4.5 MCG/ ACTUATION HFA.AER.AD 2 PUF INH BID COPD Ferrous Sulfate 325 MG (65 MG IRON) TABLET 1 TAB PO DAILY IRON, VITAMIN ( Reported) Folic Acid 1 MG TABLET 1 TAB PO DAILY supplementation Furosemide 40 MG TABLET 1 TAB PO DAILY CHF Gabapentin 300 MG CAPSULE 2 CAP PO TID NERVE PAIN Hydralazine HCl 25 MG TABLET 1 TAB PO TID Blood pressure Insulin Detemir (Levemir Flextouch) 100 UNIT/ML (3 ML) INSULN.PEN 20 UNITS SC DAILY DIABETES (Reported) Ipratropium/Albuterol Sulfate (Iprat-Albut 0.5-3(2.5) MG/3 Ml) 0.5 MG-3 MG (2.5 MG BASE)/3 ML AMPUL.NEB 1 INH PO BID BREATHING PROBLEMS (Reported) Magnesium Hydroxide (Milk Of Magnesia) 400 MG/5 ML ORAL.SUSP 30 ML PO DAILY PRN NO BM IN 3 DAYS (Reported) Metoprolol Succ XL (Toprol XL) 25 MG TAB 1 TAB PO DAILY HEART (Reported) Na Phos,M-B/Na Phos,Di-Ba (Fleet Enema) 19 GRAM-7 GRAM/118 ML ENEMA 1 E RC DAILY PRN CONSTIPATION (Reported) Nicotine (Nicotine Patch) 14 MG/24 HOUR PATCH.TD24 14 MG TOP DAILY smoking cessation Omeprazole 20 MG CAPSULE.DR 1 CAP PO DAILY GI (Reported) Prednisone 10 MG TABLET 1 TAB PO DAILY COPD exacerbation Sertraline HCl 50 MG TABLET 1 TAB PO 0800 depression/anxiety Tamsulosin HCl (Flomax) 0.4 MG CAP.ER.24H 1 CAP PO 1700 PROSTATE (Reported) Thiamine HCl (Vitamin B-1) 100 MG TABLET 1 TAB PO DAILY supplementation Trazodone HCl 50 MG TABLET 0.25 TAB PO QPM SLEEP (Reported) Trazodone HCl 100 MG TABLET 1 TAB PO 2200 insomnia Current Medications: Current Medications Sig/Avery Start time Last Medication Dose Route Stop Time Status Admin Acetaminophen 650 MG Q6P PRN 11/09 1500 AC PO Acetaminophen 650 MG Q4P PRN 11/09 1500 AC PO Amlodipine Besylate 10 MG DAILY 11/10 0900 DC PO Amlodipine Besylate 5 MG DAILY 11/10 0900 AC 11/10 PO 0819 Amlodipine Besylate 5 MG DAILY 11/10 0900 AC PO Apixaban 2.5 MG BID 11/09 2100 AC 11/10 PO 0818 Aspirin Buffered 81 MG DAILY 11/09 1452 AC 11/10 PO 0818 Budesonide/ 2 PUF BID 11/09 1451 AC 11/10 Formoterol Fumarate INH 0817 Ferrous Sulfate 325 MG TID 11/09 1456 AC 11/10 PO 0824 Folic Acid 0 .STK-MED ONE 11/09 1540 DC PO Folic Acid 1 MG DAILY 11/09 1452 AC 11/10 PO 0818 Furosemide 40 MG DAILY 11/10 0900 CAN PO Gabapentin 0 .STK-MED ONE 11/09 1539 DC PO Gabapentin 600 MG TID 11/09 1452 AC 11/10 PO 0819 Hydralazine HCl 25 MG TID 11/09 1451 AC 11/10 PO 0818 Insulin Aspart 0 TIDAC 11/10 0800 AC SC Insulin Detemir 16 UNITS BID 11/09 1455 AC 11/10 SC 0817 Lorazepam 1.5 MG Q6 11/10 1200 AC PO Lorazepam 2 MG ONCE ONE 11/10 0630 DC 11/10 PO 11/10 0631 0620 Lorazepam 0 .STK-MED ONE 11/09 1540 DC PO Lorazepam 2 MG Q6 11/09 1500 DC 11/10 PO 0211 Lorazepam 0 Q1P PRN 11/09 1500 AC 11/09 IV 2330 Lorazepam 0 .STK-MED ONE 11/09 1041 DC PO Lorazepam 1 MG ONE ONE 11/09 1030 DC 11/09 PO 11/09 1031 1035 Magnesium Hydroxide 30 ML DAILY NEEDED PRN 11/09 1500 AC PO Metoprolol Succinate 25 MG DAILY 11/10 0900 DC PO Metoprolol Succinate 50 MG DAILY 11/09 1745 AC 11/10 PO 0818 Nicotine 0 .STK-MED ONE 11/09 1540 DC TOP Nicotine 14 MG DAILY 11/09 1457 AC 11/10 TOP 0817 Omeprazole 0 .STK-MED ONE 11/09 1540 DC PO Omeprazole 20 MG DAILY AC 11/09 1455 AC 11/10 PO 0541 Prednisone 10 MG DAILY 11/10 0900 CAN PO Sertraline HCl 50 MG 0800 11/10 0800 AC 11/10 PO 0818 Sodium Chloride 1,000 ML Q13H 11/09 1845 AC 11/10 IV 0858 Sodium Chloride 1,000 ML Q13H 11/09 1500 AC 11/09 IV 1547 Tamsulosin HCl 0.4 MG 1700 11/09 1700 AC 11/09 PO 1843 Thiamine HCl 0 .STK-MED ONE 11/09 1540 DC PO Thiamine HCl 100 MG DAILY 11/09 1452 AC 11/10 PO 0818 Tramadol HCl 50 MG Q12P PRN 11/09 1845 AC 11/10 PO 0833 Trazodone HCl 100 MG 2200 11/09 2200 AC 11/09 PO 2221 Trazodone HCl 12.5 MG QPM 11/09 2100 AC 11/09 PO 2221 Past History Travel History Traveled to [place] past 21 day No Medical History Neurological: delerium tremens, seizure EENT: NONE Cardiovascular: AFIB, CAD (nonocclusive), CHF, diastolic CHF, hypertension, mitral regurgitation, Staph aureus endocarditis Respiratory: COPD, emphysema Gastrointestinal: GERD, hiatal hernia, Diarrhea, nausea, rectal cancer Hepatic: hepatitis B (this is reported in Epic), hepatitis C Renal: chronic kidney disease, glomerulonephritis (biopsy proven membranoprolifer), history of acute kidney injury due to acute urinary retension Musculoskeletal: degen joint disease, CHRONIC BACK PAIN Psychiatric: alcohol dependence, anxiety Endocrine: diabetes, secondary hyperparathyroidism Blood Disorders: anemia, Waldenstrohm's macroglobulinemia, 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 proliferative disorder, 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 FH: diabetes mellitus FH: stroke FHx: prostate cancer PATERNAL GRANDMOTHER, ; Cause: Colon cancer. MOTHER, , Age 87; Cause: Old age. Psychosocial History Who Do You Live With? self Services at Home: Nursing Primary Language: Occitan Smoking Status: Current Everyday Smoker ETOH Use: heavy use Illicit Drug Use: denies illicit drug use Functional Ability ADLs Independent: dressing, eating, toileting, bathing. Ambulation: wheelchair IADLs Independent: shopping, housework, finances, food prep, telephone, transportation , medication admin. Exam & Diagnostic Data Vital Signs and I&O Vital Signs Date Time Temp Pulse Resp B/P B/P Pulse O2 O2 Flow FiO2 Mean Ox Delivery Rate 11/10 818 84 156/78 05/18 0818 84 156/78 11/10 0818 84 156/78 05/ 0656 98.6 84 20 156/78 98 /18 0600 98.6 84 20 156/78 / 0214 98.2 81 20 174/88 94 05/18 0200 98.2 81 20 174/88 / 2300 98.7 87 22 160/82 11/09 2245 98.7 87 22 160/82 96 Room Air 11/09 2220 160/82 11/09 2000 98.5 90 22 170/100 11/09 1847 95 180/120 11/09 1844 95 180/120 11/09 1843 95 180/120 11/09 1643 98.0 95 22 180/120 98 Room Air 11/09 1622 98.0 95 22 180/120 11/09 1606 98.0 86 18 176/82 97 Room Air 11/09 1446 97.7 73 20 180/84 11/09 1446 97.7 73 20 180/74 97 Room Air Room Air 11/09 1339 97.7 90 20 183/92 98 Room Air 11/09 1204 97.1 88 20 166/81 97 Room Air Intake & Output 11/10 1600 11/10 0400 11/09 1600 11/09 0400 11/08 1600 11/08 0400 Intake Total 480 Output Total 250 Balance 230 Intake, Oral 480 Number 1 Bowel Movements Output, Urine 250 Patient 230 lb 230 lb Weight Weight Reported by Patient Measurement Method Physical Exam General Appearance: comfortable, sedated, obese Head: atraumatic Eyes: Bilateral: normal appearance, PERRL, EOMI. Ears, Nose, Throat: normal pharynx, normal ENT inspection Neck: normal inspection, supple Respiratory: normal breath sounds, chest non-tender, no respiratory distress Cardiovascular: regular rate/rhythm, edema Gastrointestinal: normal bowel sounds, non-tender, no organomegaly, hepatomegaly , spleenomegaly, numerous surgical scars over the abdomen Back: normal inspection Extremities: status post left BKA Neurologic/Psych: somnolent but arousable, cooperative, appears to be moving all extremities Skin: intact, normal color Results Pertinent Lab Results: Laboratory Tests 11/10 11/10 11/09 0905 0840 2243 Chemistry Sodium (137 - 145 mmol/L) 136 L Potassium (3.5 - 5.1 mmol/L) 4.4 Chloride (98 - 107 mmol/L) 106 Carbon Dioxide (22 - 30 mmol/L) 21 L Anion Gap (5 - 16) 10 BUN (9 - 20 mg/dL) 53 H Creatinine (0.7 - 1.2 mg/dL) 3.7 H Estimated GFR (>60 ml/min) 17 L BUN/Creatinine Ratio (7 - 25 %) 14.3 Lactic Acid Cancelled Hematology CBC w Diff NO MAN DIFF REQ WBC (4.8 - 10.8 /CUMM) 4.1 L RBC (4.70 - 6.10 /CUMM) 3.52 L Hgb (14.0 - 18.0 G/DL) 10.7 L Hct (42 - 52 %) 31.9 L MCV (80.0 - 94.0 FL) 90.6 MCH (27.0 - 31.0 PG) 30.5 MCHC (33.0 - 37.0 G/DL) 33.6 RDW (11.5 - 14.5 %) 18.0 H Plt Count (130 - 400 /CUMM) 124 L MPV (7.4 - 10.4 FL) 7.3 L Gran % (42.2 - 75.2 %) 78.0 H Lymphocytes % (20.5 - 51.1 %) 6.7 L Monocytes % (1.7 - 9.3 %) 12.2 H Eosinophils % (0 - 5 %) 2.8 Basophils % (0.0 - 2.0 %) 0.3 Absolute Granulocytes (1.4 - 6.5 /CUMM) 3.2 Absolute Lymphocytes (1.2 - 3.4 /CUMM) 0.3 L Absolute Monocytes (0.10 - 0.60 /CUMM) 0.5 Absolute Eosinophils (0.0 - 0.7 /CUMM) 0.1 Absolute Basophils (0.0 - 0.2 /CUMM) 0 11/09 191 0512 Chemistry Sodium (137 - 145 mmol/L) 140 Potassium (3.5 - 5.1 mmol/L) 4.1 Chloride (98 - 107 mmol/L) 107 Carbon Dioxide (22 - 30 mmol/L) 15 L Anion Gap (5 - 16) 17 H BUN (9 - 20 mg/dL) 47 H Creatinine (0.7 - 1.2 mg/dL) 4.0 H Estimated GFR (>60 ml/min) 15 L BUN/Creatinine Ratio (7 - 25 %) 11.8 Glucose (65 - 99 mg/dL) 103 H Lactic Acid Cancelled Calcium (8.4 - 10.2 mg/dL) 8.8 Magnesium (1.6 - 2.3 mg/dL) 2.0 Total Bilirubin (0.2 - 1.3 mg/dL) 0.3 AST (17 - 59 U/L) 17 ALT (21 - 72 U/L) 12 L Alkaline Phosphatase (< 127 U/L) 76 Troponin I (<0.11 ng/ml) 0.07 0.08 Fbz-[id number]-[id number] Pept (<125 pg/mL) 2500 H Total Protein (6.3 - 8.2 g/dL) 6.2 L Albumin (3.5 - 5.0 g/dL) 3.8 Globulin (1.9 - 4.2 gm/dL) 2.4 Albumin/Globulin Ratio (1.1 - 2.2 %) 1.6 Hematology CBC w Diff NO MAN DIFF REQ WBC (4.8 - 10.8 /CUMM) 4.2 L RBC (4.70 - 6.10 /CUMM) 3.68 L Hgb (14.0 - 18.0 G/DL) 11.1 L Hct (42 - 52 %) 33.0 L MCV (80.0 - 94.0 FL) 89.5 MCH (27.0 - 31.0 PG) 30.1 MCHC (33.0 - 37.0 G/DL) 33.6 RDW (11.5 - 14.5 %) 18.0 H Plt Count (130 - 400 /CUMM) 161 MPV (7.4 - 10.4 FL) 7.0 L Gran % (42.2 - 75.2 %) 78.7 H Lymphocytes % (20.5 - 51.1 %) 10.4 L Monocytes % (1.7 - 9.3 %) 7.8 Eosinophils % (0 - 5 %) 2.9 Basophils % (0.0 - 2.0 %) 0.2 Absolute Granulocytes (1.4 - 6.5 /CUMM) 3.3 Absolute Lymphocytes (1.2 - 3.4 /CUMM) 0.4 L Absolute Monocytes (0.10 - 0.60 /CUMM) 0.3 Absolute Eosinophils (0.0 - 0.7 /CUMM) 0.1 Absolute Basophils (0.0 - 0.2 /CUMM) 0 Toxicology Serum Alcohol (<10 MG/DL) 64.0 Imaging/Other Studies: PATIENT: BRANDYN BORDEN PRESENT AGE: 67 PATIENT ACCOUNT NO: [id number] : 51 LOCATION: [facility] ORDERING PHYSICIAN: Paolo Pastrana MD SERVICE DATE: 11/09/17 EXAM TYPE: RAD - XRY-PORTABLE CHEST XRAY EXAMINATION: CHEST 1 VIEW CLINICAL INFORMATION: Cough, shortness of breath. COMPARISON: August 26, 2017. TECHNIQUE: An AP view of the chest is provided. FINDINGS: The cardiac silhouette is enlarged, but stable. Intact midline sternal wires are present. The mediastinal and hilar contours are unremarkable. There are neither pleural effusions nor pneumothoraces. There are no consolidations. The osseous structures are unremarkable. IMPRESSION: No evidence for acute disease. Stable cardiomegaly. DICTATED BY: Adrian Liu MD DATE/TIME DICTATED:11/09/17511 INSPECTOR RUBBER STAMP DIE:JENELLE DATE/TIME TRANSCRIBED:11/09/17511 CONFIDENTIAL, DO NOT COPY WITHOUT APPROPRIATE AUTHORIZATION. <Electronically signed in Other Vendor System> SIGNED BY: Adrian Liu MD 11/09/17522 Assessment/Plan Assessment/Recommendations Assessment: 1. Acute kidney injury. His most recent outpatient serum creatinine was 3.3. Reviewing the old record, he had been hospitalized at [facility] with an exacerbation of his COPD. He was also had some degree of alcohol withdrawal. At that time his acute kidney injury was also felt to per perhaps be due to urinary retention. At this point, given his sedation, I am unable to inquire if he is been taking any nonsteroidal anti-inflammatory drugs. At this point, would favor checking an ultrasound along with a bladder scan for post void residual. Agree with plans for fluids. 2. Chronic kidney disease. Likely due to his previous history of glomerular nephritis related to hepatitis C. 3. Hepatitis C. I history. He had been treated with interferon with clearing of the viral load. 4. Obesity 5. Diabetes mellitus 6. History of atrial fib status post Maze procedure. 7. History of endocarditis. Recommendations: 1. Strict intakes and outputs and daily weights 2. Would obtain an ultrasound of the kidneys along with post void residual. 3. Obtain also daily blood work.
--- NOTE | 2017-11-10 14:12 | PN- Att Addend ---
Attending Addendum Attending Brief Note Patient seen and examined. Plan of care discussed with the medical team and the patient. Available lab work and radiology test reports were reviewed. Patient feels better and reports decrease in his tremors. He feels slightly anxious but otherwise denies any difficulty breathing chest pain fever chills nausea vomiting or diarrhea. Exam: General: Patient awake alert oriented without any distress; appears slightly anxious with mild tremors CVS: S1 plus S2 without any murmur or gallops Chest: Few scattered crepitation without any wheeze. There is no respiratory distress. Abdomen: Soft non-tender, bowel sound present, no guarding or rebound [employer]: Awake alert oriented without any focal neuro deficit and follows commands appropriately; has mild bilateral hand tremors Extremities: No edema; no clubbing or cyanosis noted; left BKA noted Assessment * Alcohol abuse alcohol withdrawal * History of atrial fibrillation on eliquis * History of hypertension * History of heart failure with preserved ejection fraction * History of COPD * History of for obstructive sleep apnea * Chronic kidney disease stage IV * Thrombocytopenia likely due to alcohol abuse * Acute renal failure in setting of chronic renal failure Plan * Continue Ativan 2 mg by mouth every 6; CIWA protocol * Continue Levemir and sliding scale and monitor Accu-Checks * Case discussed with social worker aide * Repeat BEP tomorrow; check CBC tomorrow * Check ultrasound kidney to rule out obstruction; check post wide residuals * Increase oral fluid intake; hold Lasix for now Current Medications Sig/Avery Start time Last Medication Dose Route Stop Time Status Admin Acetaminophen 650 MG Q6P PRN 11/09 1500 AC PO Acetaminophen 650 MG Q4P PRN 11/09 1500 AC 11/10 PO 1355 Albuterol Sulfate 3 ML BID 11/10 1057 AC 11/10 INH 1058 Amlodipine Besylate 10 MG DAILY 11/10 0900 DC PO Amlodipine Besylate 5 MG DAILY 11/10 0900 DC 11/10 PO 0819 Amlodipine Besylate 5 MG DAILY 11/10 0900 AC PO Apixaban 2.5 MG BID 11/09 2100 AC 11/10 PO 0818 Aspirin Buffered 81 MG DAILY 11/09 1452 AC 11/10 PO 0818 Budesonide/ 2 PUF BID 11/09 1451 AC 11/10 Formoterol Fumarate INH 0817 Ferrous Sulfate 325 MG TID 11/09 1456 AC 11/10 PO 1348 Folic Acid 0 .STK-MED ONE 11/09 1540 DC PO Folic Acid 1 MG DAILY 11/09 1452 AC 11/10 PO 0818 Furosemide 40 MG DAILY 11/10 0900 CAN PO Gabapentin 0 .STK-MED ONE 11/09 1539 DC PO Gabapentin 600 MG TID 11/09 1452 AC 11/10 PO 1348 Hydralazine HCl 25 MG TID 11/09 1451 AC 11/10 PO 1348 Insulin Aspart 0 TIDAC 11/10 0800 AC SC Insulin Detemir 16 UNITS BID 11/09 1455 AC 11/10 SC 0817 Ipratropium [place] 2.5 ML BID 11/10 1058 AC 11/10 INH 1058 Lorazepam 1.5 MG Q6 11/10 1200 AC 11/10 PO 1155 Lorazepam 2 MG ONCE ONE 11/10 0630 DC 11/10 PO 11/10 0631 0620 Lorazepam 0 .STK-MED ONE 11/09 1540 DC PO Lorazepam 2 MG Q6 11/09 1500 DC 11/10 PO 0211 Lorazepam 0 Q1P PRN 11/09 1500 AC 11/09 IV 2330 Magnesium Hydroxide 30 ML DAILY NEEDED PRN 11/09 1500 AC PO Metoprolol Succinate 25 MG DAILY 11/10 0900 DC PO Metoprolol Succinate 50 MG DAILY 11/09 1745 AC 11/10 PO 0818 Nicotine 0 .STK-MED ONE 11/09 1540 DC TOP Nicotine 14 MG DAILY 11/09 1457 AC 11/10 TOP 0817 Omeprazole 0 .STK-MED ONE 11/09 1540 DC PO Omeprazole 20 MG DAILY AC 11/09 1455 11/10 PO 0541 Prednisone 10 MG DAILY 11/10 0900 CAN PO Sertraline HCl 50 MG 0800 11/10 0800 AC 11/10 PO 0818 Sodium Chloride 1,000 ML Q13H 11/09 1845 DC 11/10 IV 0858 Sodium Chloride 1,000 ML Q13H 11/09 1500 DC 11/09 IV 1547 Tamsulosin HCl 0.4 MG 1700 11/09 1700 AC 11/09 PO 1843 Thiamine HCl 0 .STK-MED ONE 11/09 1540 DC PO Thiamine HCl 100 MG DAILY 11/09 1452 AC 11/10 PO 0818 Tramadol HCl 50 MG Q12P PRN 11/09 1845 AC 11/10 PO 0833 Trazodone HCl 100 MG 0 11/09 2199 AC 11/09 PO 2221 Trazodone HCl 12.5 MG QPM 11/09 2100 AC 11/09 PO 2221 Laboratory Tests 11/10/17 0905: CBC w Diff NO MAN DIFF REQ, RBC 3.52 L, MCV 90.6, MCH 30.5, MCHC 33.6, RDW 18.0 H, MPV 7.3 L, Gran % 78.0 H, Lymphocytes % 6.7 L, Monocytes % 12.2 H, Eosinophils % 2.8, Basophils % 0.3, Absolute Granulocytes 3.2, Absolute Lymphocytes 0.3 L, Absolute Monocytes 0.5, Absolute Eosinophils 0.1, Absolute Basophils 0 11/10/17 0840: Anion Gap 10, Estimated GFR 17 L, BUN/Creatinine Ratio 14.3 11/09/17 2243: Lactic Acid Cancelled 11/09/171942: Lactic Acid Cancelled 11/09/17 1915: Troponin I 0.07 11/09/17 0512: Anion Gap 17 H, Estimated GFR 15 L, BUN/Creatinine Ratio 11.8, Glucose 103 H, Calcium 8.8, Magnesium 2.0, Total Bilirubin 0.3, AST 17, ALT 12 L, Alkaline Phosphatase 76, Troponin I 0.08, [id number] Pept 2500 H, Total Protein 6.2 L, Albumin 3.8, Globulin 2.4, Albumin/Globulin Ratio 1.6, CBC w Diff NO MAN DIFF REQ, RBC 3.68 L, MCV 89.5, MCH 30.1, MCHC 33.6, RDW 18.0 H, MPV 7.0 L, Gran % 78.7 H, Lymphocytes % 10.4 L, Monocytes % 7.8, Eosinophils % 2.9, Basophils % 0.2, Absolute Granulocytes 3.3, Absolute Lymphocytes 0.4 L, Absolute Monocytes 0.3, Absolute Eosinophils 0.1, Absolute Basophils 0, Serum Alcohol 64.0 Vital Signs Date Time Temp Pulse Resp B/P B/P Pulse O2 O2 Flow FiO2 Mean Ox Delivery Rate 11/10 1348 80 150/70 11/10 1102 Room Air Room Air 11/10 08 84 156/78 11/10 0818 84 15678 11/10 0818 84 156/78 05/18 0800 98.6 84 20 156/78 0518 0656 98.6 84 20 156/78 98 05/18 0600 98.6 84 20 156/78 /18 0214 98.2 81 20 174/88 94 /18 0200 98.2 81 20 174/88 / 2300 98.7 87 22 160/82 11/09 2245 98.7 87 22 160/82 96 Room Air 11/09 2220 160/82 11/09 2000 98.5 90 22 170/100 11/09 1847 95 180/120 11/09 1844 95 180/120 11/09 1843 95 180/120 11/09 1643 98.0 95 22 180/120 98 Room Air 11/09 1622 98.0 95 22 180/120 11/09 1606 98.0 86 18 176/82 97 Room Air 11/09 1446 97.7 73 20 180/84 11/09 1446 97.7 73 20 180/74 97 Room Air Room Air Intake & Output 11/10 1600 11/10 0800 11/10 0000 Intake Total 180 480 Output Total 575 250 Balance -395 230 Intake, IV 180 Intake, Oral 480 Number 1 Bowel Movements Output, Urine 575 250 Patient 230 lb Weight Weight Reported by Patient Measurement Method
--- NOTE | 2017-11-10 17:14 | ULTRASOUND REPORT ---
EXAMINATION: US RETROPERITONEAL COMPLETE (RENAL) CLINICAL INFORMATION: 67-year-old male with elevated creatinine and urine. Suspected obstructive uropathy.. COMPARISON: Renal ultrasound done on 10/31/2016. TECHNIQUE: Real-time imaging of the kidneys and bladder. FINDINGS: RIGHT KIDNEY: 10.3 x 5.7 x 4.8 cm (SAG x AP x TRV). The kidney is normal in size, and contour. Mild diffuse increased cortical echotexture is noted, consistent with diffuse renal disease. Multiple cortical renal cysts are noted. There is no solid mass present. There is no evidence of any hydronephrosis present. No significant change. LEFT KIDNEY: 10.6 x 6.8 x 5.3 cm (SAG x AP x TRV). The kidney is normal in size, and contour mild diffuse increased cortical echotexture is noted, consistent with diffuse renal disease. Multiple cortical renal cysts are noted. In one of the cysts located near the inferior pole, echogenic foci are noted, consistent with calcification. No definite calculi is visualized. There is no evidence of any hydronephrosis present. Previous sonographic detected left renal calculi is not reproduced in the current study. Otherwise no significant change. BLADDER: Well-distended and normal. The left-sided ureteric jet is visualized. The right-sided jet is not seen. Prevoid bladder volume is 374 mL. The patient was unable to void accordingly, postvoid residual could not be calculated. IMPRESSION: Bilateral normal size kidneys showing features consistent with medical renal disease. No sonographic evidence of obstructive uropathy.
[2017-11-11 07:31] VITALS: BP 164/100
--- NOTE | 2017-11-11 09:02 | PN- Housestaff ---
Zan ARCEO,Brandie 11/11/17 0902: Subjective Follow-up For: Alcohol withdrawal Subjective: No events overnight, patient denies any dizziness, headaches, tremors, anxiety, chest pain, shortness of breath, nausea, vomiting. His CIWA scores have been 0. Review of Systems Constitutional: Reports: no symptoms. Cardiovascular: Reports: no symptoms. Respiratory: Reports: no symptoms. Gastrointestinal: Reports: no symptoms. Genitourinary: Reports: no symptoms. Musculoskeletal: Reports: no symptoms. Neurological/Psychological: Reports: no symptoms. Objective Last 24 Hrs of Vital Signs/I&O Vital Signs Date Time Temp Pulse Resp B/P B/P Pulse O2 O2 Flow FiO2 Mean Ox Delivery Rate 11/11 1427 97.6 68 20 120/80 97 Room Air 11/11 1045 98 Room Air 11/11 0814 164/100 11/11 0813 164/100 11/11 0813 164/100 11/11 0731 98.2 62 20 164/100 99 Room Air 11/10 2124 97.8 82 20 160/80 98 Room Air 11/10 2053 160/80 11/10 1944 97 Room Air Room Air Intake & Output 11/11 1600 11/11 0800 11/11 0000 Intake Total 1900 480 720 Output Total 1425 500 825 Balance 475 -20 -105 Intake, IV 0 Intake, Oral 1900 480 720 Number 0 Bowel Movements Output, Urine 1425 500 825 Patient 213 lb Weight Weight Bed scale Measurement Method Physical Exam General Appearance: Alert, Oriented X3, Cooperative, No Acute Distress Skin: No Rashes, No Breakdown, No Significant Lesion Skin Temp/Moisture Exam: Warm/Dry Neck: Supple, No JVD Cardiovascular: Regular Rate, Normal S1, Normal S2, No Murmurs Lungs: Clear to Auscultation Abdomen: Normal Bowel Sounds, Soft, No Tenderness Neurological: Normal Speech Extremities: No Clubbing, No Cyanosis, No Edema Current Medications: Current Medications Sig/Avery Start time Last Medication Dose Route Stop Time Status Admin Acetaminophen 650 MG Q6P PRN 11/09 1500 AC PO Acetaminophen 650 MG Q4P PRN 11/09 1500 AC 11/10 PO 1355 Albuterol Sulfate 3 ML BID 11/10 1057 AC 11/11 INH 1045 Amlodipine Besylate 5 MG DAILY 11/10 0900 AC 11/11 PO 0813 Apixaban 2.5 MG BID 11/09 2100 AC 11/11 PO 0814 Aspirin Buffered 81 MG DAILY 11/09 1452 AC 11/11 PO 0814 Budesonide/ 2 PUF BID 11/09 1451 AC 11/11 Formoterol Fumarate INH 0815 Ferrous Sulfate 325 MG TID 11/09 1456 AC 11/11 PO 1234 Folic Acid 1 MG DAILY 11/09 1452 AC 11/11 PO 0814 Gabapentin 600 MG TID 11/09 1452 AC 11/11 PO 1234 Hydralazine HCl 25 MG TID 11/09 1451 AC 11/11 PO 1234 Insulin Aspart 0 TIDAC 11/10 0800 AC SC Insulin Detemir 16 UNITS BID 11/09 1455 AC 11/11 SC 0813 Ipratropium [place] 2.5 ML BID 11/10 1058 AC 11/11 INH 1044 Lorazepam 1.5 MG Q6 11/10 1200 AC 11/11 PO 1804 Lorazepam 0 Q1P PRN 11/09 1500 AC 11/09 IV 2330 Magnesium Hydroxide 30 ML DAILY NEEDED PRN 11/09 1500 AC PO Metoprolol Succinate 50 MG DAILY 11/09 1745 AC 11/11 PO 0814 Nicotine 14 MG DAILY 11/09 1457 AC 11/11 TOP 0814 Omeprazole 20 MG DAILY AC 11/09 1455 AC 11/11 PO 0520 Sertraline HCl 50 MG 0800 11/10 0800 AC 11/11 PO 0814 Sodium Bicarbonate 650 MG BID 11/10 2100 AC 11/11 PO 0815 Tamsulosin HCl 0.4 MG 1700 11/09 1700 AC 11/11 PO 1804 Thiamine HCl 100 MG DAILY 11/09 1452 AC 11/11 PO 0814 Tramadol HCl 50 MG Q12P PRN 11/09 1845 AC 11/11 PO 0838 Trazodone HCl 100 MG 2200 11/09 2200 AC 11/10 PO 205 Trazodone HCl 12.5 MG QPM 11/09 2100 AC 11/10 PO 2052 Last 24 Hrs of Lab/Manny Results Last 24 Hrs of Labs/Mics: Laboratory Tests 11/11/17830: RBC 3.45 L, MCV 91.5, MCH 30.2, MCHC 33.0, RDW 18.1 H, MPV 7.6, Gran % 81.8 H , Lymphocytes % 6.4 L, Monocytes % 7.8, Eosinophils % 3.7, Basophils % 0.3, Absolute Granulocytes 3.0, Absolute Lymphocytes 0.2 L, Absolute Monocytes 0.3, Absolute Eosinophils 0.1, Absolute Basophils 0 11/11/17 0735: Anion Gap 9, Estimated GFR 20 L, BUN/Creatinine Ratio 14.5 Orders CIWA Score (last 24 hrs): 0 Assessment/Plan Assessment: 67 YO M smoker (half a pack/day since the age of 19) with PMH of Atrial fibrillation on Eliquis, HTN, HLD, HFpEF, GERD, COPD/obstructive sleep apnea, CKD stage IV, alcohol dependency, alcohol withdrawal seizures, anxiety, DM, CAD, mitral regurgitation status post MVR, 2010 with a Maze procedure, Hepatitis C status post treatment, staph aureus endocarditis, Waldenstrm's macroglobulinemia, Colon/rectal cancer (status post surgery), Prostate cancer( status post radiation), BPH and L BKA (wheelchair bound) presented to ED with with chief complaint of visual hallucination, nausea, dizziness and shortness of breath since yesterday. We are following the patient for following problems: Alcohol detox: -We will keep the patient on CIWA protocol and we will continue his ativan to 1.5mg Q6 hourly with plans to taper more tomorrow. -Supplemental thiamine, folic acid and vitamin B12 -Zofran for nausea and vomiting as needed -Follow pain pathway to treat pain as needed -Seizure precautions -Fall precautions -His CIWA this morning was 0 Acute on chronic kidney injury:(improved) - He reports a history of being diagnosed with urinary retention at [facility]. Apparently, he had a bladder scan that showed a large postvoid residual. However, when the Kaiser catheter or specifically the straight cath was performed, no urine was found. Nephrology to review records at [facility]. 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 -Acute kidney injury is probably due to dehydration and patient was using Lasix. -Will encourage patient to drink orally. -Avoid nephrotoxic medications -Check input and output -Holding his lasix -His creatinine is improving today it's 3.1 -We placed patient from the renal dialysis diet to a consistent carbohydrate 3 diet for his diabetes is a 2 g sodium limits. The patient has no issues with his potassium and as such does not have to be limited. -renal USG to rule out obstructive uropathy, negative Elevated anion gap:(resolved) -Probably due to acute on chronic kidney injury Thrombocytopenia: -Patient has low platelet count today is 123 stable from yesterday's value of 124 -We will monitor it. History of hypertension hyperlipidemia: -We will continue his metoprolol and amlodipine -Continue hydralazine 25 mg 3 times a day -Continue Lipitor History of smoking: -Smoking cessation counseling -Continue nicotine patch as needed History of diabetes: -Accu-Cheks -Diabetic diet -Insulin level levemir 16 units twice a day -Insulin NovoLog according to sliding scale History of GERD: -Continue omeprazole History of CAD and disastolic CHF: -Continue aspirin -Holding his lasix due to kidney injury H/O A.fib on anticoagulation: -Continue eliquis DVT prophylaxis: Mechanical and patient already on Eliquis CODE STATUS: Full code Problem List: 1. Alcohol withdrawal 2. [id number] kidney injury Pain Ratin Pain Location: na Pain Goal: Remain pain free Pain Plan: na Tomorrow's Labs & Rationales: jeovany Jones MD,Amir 11/11/17 1217: Attending MD Review Statement Attending Statement Attending MD Statement: examined this patient, discuss w/resident/PA/METAL FLOORING INSTALLER, agreed w/resident/PA/METAL FLOORING INSTALLER, reviewed EMR data (avail), discussed with nursing Attending Assessment/Plan: Pt was seen and evaluated. Reports doing better. --cont CIWA protocol, ativan taper --likely d/c in next 24-36 hrs --rest of the plan as per resident's note
[2017-11-11 09:12] LABS: ABSOLUTE BASOPHIL COUNT 0 /CUMM (0.0-0.2); ABSOLUTE EOSINOPHIL COUNT 0.1 /CUMM (0.0-0.7); ABSOLUTE LYMPH COUNT 0.2 /CUMM (1.2-3.4); ABSOLUTE MONOCYTE COUNT 0.3 /CUMM (0.10-0.60); BASOPHIL % 0.3 % (0.0-2.0); EOSINOPHIL % 3.7 % (0-5); GRANULOCYTE % 81.8 % (42.2-75.2); HEMATOCRIT 31.6 % (42-52); MEAN CORPUSCULAR HGB 30.2 PG (27.0-31.0); MEAN CORPUSCULAR VOLUME 91.5 FL (80.0-94.0); MEAN PLATELET VOLUME 7.6 FL (7.4-10.4); PLATELET COUNT 123 /CUMM (130-400); RBC DISTRIBUTION WIDTH 18.1 % (11.5-14.5); RED BLOOD CELL CT 3.45 /CUMM (4.70-6.10); WHITE BLOOD CELL COUNT 3.6 /CUMM (4.8-10.8)
--- NOTE | 2017-11-11 12:42 | PN- Nephrology ---
Assessment/Plan Nephrology Assessment: 1. Acute kidney injury. Awake alert serum creatinine is better. He reports a history of being diagnosed with urinary retention at [facility]. Apparently, he had a bladder scan that showed a large postvoid residual. However, when the Kaiser catheter or specifically the straight cath was performed, no urine was found. We'll review records at [facility] 2. Chronic kidney disease. 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 3. Hepatitis C. by history. He had been treated with interferon with clearing of the viral load. 4. Obesity 5. Diabetes mellitus 6. History of atrial fib status post Maze procedure. 7. History of endocarditis. Suggestion: 1. Continue current care Subjective Subjective: Sitting up eating his lunch Objective Vital Signs and I&Os Vital Signs Date Time Temp Pulse Resp B/P B/P Pulse O2 O2 Flow FiO2 Mean Ox Delivery Rate 11/11 1045 98 Room Air 11/11 0814 164/100 11/11 0813 164/100 11/11 0813 164/100 11/11 0731 98.2 62 20 164/100 99 Room Air 11/10 2124 97.8 82 20 160/80 98 Room Air 11/10 2053 160/80 11/10 1944 97 Room Air Room Air 11/10 1708 80 150/70 11/10 1600 97.9 80 20 150/70 11/10 1400 97.9 80 20 150/70 98 Room Air 11/10 1348 80 150/70 Intake & Output 11/11 1600 11/11 0400 11/10 1600 11/10 0400 11/09 1600 11/09 0400 Intake Total 948 463 4752 Output Total 1025 825 825 Balance -545 -105 555 Intake, IV 180 Intake, Oral 128 212 5986 Number 1 Bowel Movements Output, Urine 1025 825 825 Patient 213 lb 230 lb 230 lb Weight Weight Bed scale Reported by Patient Measurement Method Physical Exam: General Appearance: Awake alert oriented sedated, obese Head: atraumatic normocephalic Eyes: Bilateral: normal appearance, PERRL, EOMI. Neck: normal inspection, supple Respiratory: normal breath sounds, chest non-tender, no respiratory distress Cardiovascular: regular rate/rhythm, edema Gastrointestinal: normal bowel sounds, non-tender, no organomegaly, hepatomegaly , spleenomegaly, numerous surgical scars over the abdomen Back: normal inspection Extremities: status post left BKA Neurologic/Psych: Awake alert oriented Skin: intact, normal color Current Medications: Current Medications Sig/Avery Start time Last Medication Dose Route Stop Time Status Admin Acetaminophen 650 MG .STK-MED ONE 11/10 1352 DC PO 11/10 1353 Acetaminophen 650 MG Q6P PRN 11/09 1500 AC PO Acetaminophen 650 MG Q4P PRN 11/09 1500 AC 11/10 PO 1355 Albuterol Sulfate 3 ML BID 11/10 1057 AC 11/11 INH 1045 Amlodipine Besylate 5 MG DAILY 11/10 0900 AC 11/11 PO 0813 Apixaban 2.5 MG BID 11/09 2100 AC 11/11 PO 0814 Aspirin Buffered 81 MG DAILY 11/09 1452 AC 11/11 PO 0814 Budesonide/ 2 PUF BID 11/09 1451 AC 11/11 Formoterol Fumarate INH 0815 Ferrous Sulfate 325 MG TID 11/09 1456 AC 11/11 PO 1234 Folic Acid 1 MG DAILY 11/09 1452 AC 11/11 PO 0814 Gabapentin 600 MG TID 11/09 1452 AC 11/11 PO 1234 Hydralazine HCl 25 MG TID 11/09 1451 AC 11/11 PO 1234 Insulin Aspart 0 TIDAC 11/10 0800 AC SC Insulin Detemir 16 UNITS BID 11/09 1455 AC 11/11 SC 0813 Ipratropium [place] 2.5 ML BID 11/10 1058 AC 11/11 INH 1044 Lorazepam 1.5 MG Q6 11/10 1200 AC 11/11 PO 1233 Lorazepam 0 Q1P PRN 11/09 1500 AC 11/09 IV 2330 Magnesium Hydroxide 30 ML DAILY NEEDED PRN 11/09 1500 AC PO Metoprolol Succinate 50 MG DAILY 11/09 1745 AC 11/11 PO 0814 Nicotine 14 MG DAILY 11/09 1457 AC 11/11 TOP 0814 Omeprazole 20 MG DAILY AC 11/09 1455 AC 11/11 PO 0520 Patient Medication 1 ED ONE ONE 11/10 1500 DC Teaching ED 11/10 1501 Sertraline HCl 50 MG 0800 11/10 0800 AC 11/11 PO 0814 Sodium Bicarbonate 650 MG BID 11/10 2100 AC 11/11 PO 0815 Tamsulosin HCl 0.4 MG 1700 11/09 1700 AC 05/18 PO 1708 Thiamine HCl 100 MG DAILY 11/09 1452 AC 11/11 PO 0814 Tramadol HCl 50 MG Q12P PRN 11/09 1845 AC 11/11 PO 0838 Trazodone HCl 100 MG 0 11/09 2199 AC 11/10 PO 2052 Trazodone HCl 12.5 MG QPM 11/09 2100 AC 11/10 PO 2052 Results Pertinent Lab Results: Laboratory Tests 11/11 11/11 11/10 0831 0735 0905 Chemistry Sodium (137 - 145 mmol/L) 138 Potassium (3.5 - 5.1 mmol/L) 3.6 Chloride (98 - 107 mmol/L) 113 H Carbon Dioxide (22 - 30 mmol/L) 16 L Anion Gap (5 - 16) 9 BUN (9 - 20 mg/dL) 45 H Creatinine (0.7 - 1.2 mg/dL) 3.1 H Estimated GFR (>60 ml/min) 20 L BUN/Creatinine Ratio (7 - 25 %) 14.5 Hematology CBC w Diff NO MAN DIFF REQ WBC (4.8 - 10.8 /CUMM) 3.6 L 4.1 L RBC (4.70 - 6.10 /CUMM) 3.45 L 3.52 L Hgb (14.0 - 18.0 G/DL) 10.4 L 10.7 L Hct (42 - 52 %) 31.6 L 31.9 L MCV (80.0 - 94.0 FL) 91.5 90.6 MCH (27.0 - 31.0 PG) 30.2 30.5 MCHC (33.0 - 37.0 G/DL) 33.0 33.6 RDW (11.5 - 14.5 %) 18.1 H 18.0 H Plt Count (130 - 400 /CUMM) 123 L 124 L MPV (7.4 - 10.4 FL) 7.6 7.3 L Gran % (42.2 - 75.2 %) 81.8 H 78.0 H Lymphocytes % (20.5 - 51.1 %) 6.4 L 6.7 L Monocytes % (1.7 - 9.3 %) 7.8 12.2 H Eosinophils % (0 - 5 %) 3.7 2.8 Basophils % (0.0 - 2.0 %) 0.3 0.3 Absolute Granulocytes (1.4 - 6.5 /CUMM) 3.0 3.2 Absolute Lymphocytes (1.2 - 3.4 /CUMM) 0.2 L 0.3 L Absolute Monocytes (0.10 - 0.60 /CUMM) 0.3 0.5 Absolute Eosinophils (0.0 - 0.7 /CUMM) 0.1 0.1 Absolute Basophils (0.0 - 0.2 /CUMM) 0 0 11/10 11/09 11/09 11/09 0840 2243 1943 1915 Chemistry Sodium (137 - 145 mmol/L) 136 L Potassium (3.5 - 5.1 mmol/L) 4.4 Chloride (98 - 107 mmol/L) 106 Carbon Dioxide (22 - 30 mmol/L) 21 L Anion Gap (5 - 16) 10 BUN (9 - 20 mg/dL) 53 H Creatinine (0.7 - 1.2 mg/dL) 3.7 H Estimated GFR (>60 ml/min) 17 L BUN/Creatinine Ratio (7 - 25 %) 14.3 Lactic Acid Cancelled Cancelled Troponin I (<0.11 ng/ml) 0.07 11/09 0512 Chemistry Sodium (137 - 145 mmol/L) 140 Potassium (3.5 - 5.1 mmol/L) 4.1 Chloride (98 - 107 mmol/L) 107 Carbon Dioxide (22 - 30 mmol/L) 15 L Anion Gap (5 - 16) 17 H BUN (9 - 20 mg/dL) 47 H Creatinine (0.7 - 1.2 mg/dL) 4.0 H Estimated GFR (>60 ml/min) 15 L BUN/Creatinine Ratio (7 - 25 %) 11.8 Glucose (65 - 99 mg/dL) 103 H Calcium (8.4 - 10.2 mg/dL) 8.8 Magnesium (1.6 - 2.3 mg/dL) 2.0 Total Bilirubin (0.2 - 1.3 mg/dL) 0.3 AST (17 - 59 U/L) 17 ALT (21 - 72 U/L) 12 L Alkaline Phosphatase (< 127 U/L) 76 Troponin I (<0.11 ng/ml) 0.08 Pjg-[id number]-Fegythnmpda Pept (<125 pg/mL) 2500 H Total Protein (6.3 - 8.2 g/dL) 6.2 L Albumin (3.5 - 5.0 g/dL) 3.8 Globulin (1.9 - 4.2 gm/dL) 2.4 Albumin/Globulin Ratio (1.1 - 2.2 %) 1.6 Hematology CBC w Diff NO MAN DIFF REQ WBC (4.8 - 10.8 /CUMM) 4.2 L RBC (4.70 - 6.10 /CUMM) 3.68 L Hgb (14.0 - 18.0 G/DL) 11.1 L Hct (42 - 52 %) 33.0 L MCV (80.0 - 94.0 FL) 89.5 MCH (27.0 - 31.0 PG) 30.1 MCHC (33.0 - 37.0 G/DL) 33.6 RDW (11.5 - 14.5 %) 18.0 H Plt Count (130 - 400 /CUMM) 161 MPV (7.4 - 10.4 FL) 7.0 L Gran % (42.2 - 75.2 %) 78.7 H Lymphocytes % (20.5 - 51.1 %) 10.4 L Monocytes % (1.7 - 9.3 %) 7.8 Eosinophils % (0 - 5 %) 2.9 Basophils % (0.0 - 2.0 %) 0.2 Absolute Granulocytes (1.4 - 6.5 /CUMM) 3.3 Absolute Lymphocytes (1.2 - 3.4 /CUMM) 0.4 L Absolute Monocytes (0.10 - 0.60 /CUMM) 0.3 Absolute Eosinophils (0.0 - 0.7 /CUMM) 0.1 Absolute Basophils (0.0 - 0.2 /CUMM) 0 Toxicology Serum Alcohol (<10 MG/DL) 64.0
[2017-11-11 14:27] VITALS: BP 120/80
[2017-11-11 22:46] VITALS: BP 159/90
[2017-11-12 06:57] VITALS: BP 138/81
--- NOTE | 2017-11-12 10:14 | PN- Housestaff ---
Zan ARCEO,Brandie 11/12/17 1014: Subjective Follow-up For: Alcohol withdrawal Subjective: Patient today states that he is feeling better. He continues on 2 L of oxygen. He does note that he feels a little nauseous and has some mild "chest tightness " that he states he gets on and off outpatient as well. He does state that he has abdominal pain but states that it is mostly associated with his hernia. He has no nausea, vomiting, diarrhea, constipation. No tremors. CIWA scores are 0. Review of Systems Constitutional: Reports: no symptoms. EENTM: Reports: no symptoms. Cardiovascular: Reports: no symptoms. Respiratory: Reports: no symptoms. Gastrointestinal: Reports: abdominal pain. Genitourinary: Reports: no symptoms. Musculoskeletal: Reports: no symptoms. Skin: Reports: no symptoms. Neurological/Psychological: Reports: no symptoms. Hematologic/Endocrine: Reports: no symptoms. Objective Last 24 Hrs of Vital Signs/I&O Vital Signs Date Time Temp Pulse Resp B/P B/P Pulse O2 O2 Flow FiO2 Mean Ox Delivery Rate 11/12 0904 98 Room Air 11/12 0657 97.5 70 20 138/81 95 Room Air 11/11 2246 97.4 53 20 159/90 98 Room Air 11/11 2124 60 159/90 11/11 1915 95 Room Air 11/11 1427 97.6 68 20 120/80 97 Room Air Intake & Output 11/12 1600 11/12 0800 11/12 0000 Intake Total 1200 1000 Output Total 1500 600 Balance -300 400 Intake, Oral 1200 1000 Output, Urine 1500 600 Patient 242 lb Weight Weight Bed scale Measurement Method Physical Exam General Appearance: Alert, Cooperative, No Acute Distress Skin: No Rashes, No Breakdown, No Significant Lesion Skin Temp/Moisture Exam: Warm/Dry Sepsis Skin Exam (color): Normal for Ethnicity HEENT: Atraumatic, EOMI, Mucous Membr. moist/pink Cardiovascular: Regular Rate, Normal S1, Normal S2, No Murmurs Lungs: Clear to Auscultation, Normal Air Movement Abdomen: Normal Bowel Sounds, Soft, No Tenderness, No Hepatospenomegaly, No Masses Neurological: Normal Speech Extremities: No Edema, l bka Vascular: Normal Pulses, Pulses Symmetrical Current Medications: Current Medications Sig/Avery Start time Last Medication Dose Route Stop Time Status Admin Acetaminophen 650 MG Q6P PRN 11/09 1500 AC PO Acetaminophen 650 MG Q4P PRN 11/09 1500 AC 11/10 PO 1355 Albuterol Sulfate 3 ML BID 11/10 1057 AC 11/12 INH 0858 Amlodipine Besylate 5 MG DAILY 11/10 0900 AC 11/12 PO 0842 Apixaban 2.5 MG BID 11/09 2100 AC 11/12 PO 0842 Aspirin Buffered 81 MG DAILY 11/09 1452 AC 11/12 PO 0842 Budesonide/ 2 PUF BID 11/09 1451 AC 11/12 Formoterol Fumarate INH 0843 Ferrous Sulfate 325 MG TID 11/09 1456 AC 11/12 PO 0842 Folic Acid 1 MG DAILY 11/09 1452 AC 11/12 PO 0842 Gabapentin 600 MG TID 11/09 145 AC 11/12 PO 0842 Hydralazine HCl 25 MG TID 11/09 1451 AC 11/12 PO 0841 Insulin Aspart 0 TIDAC 11/10 0800 AC SC Insulin Detemir 16 UNITS BID 11/09 1455 AC 11/12 SC 0841 Ipratropium [place] 2.5 ML BID 11/10 1058 AC 11/12 INH 0858 Lorazepam 1 MG Q6 11/12 1200 AC PO Lorazepam 1.5 MG Q6 11/10 1200 DC 11/12 PO 0523 Lorazepam 0 Q1P PRN 11/09 1500 AC 11/09 IV 2330 Magnesium Hydroxide 30 ML DAILY NEEDED PRN 11/09 1500 AC PO Metoprolol Succinate 50 MG DAILY 11/09 1745 AC 11/12 PO 0842 Nicotine 14 MG DAILY 11/09 1457 AC 11/12 TOP 0842 Omeprazole 20 MG DAILY AC 11/09 1455 AC 11/12 PO 0524 Sertraline HCl 50 MG 0800 11/10 0800 AC 11/12 PO 0842 Sodium Bicarbonate 650 MG BID 11/10 2100 AC 11/12 PO 0842 Tamsulosin HCl 0.4 MG 1700 11/09 1700 AC 11/11 PO 1804 Thiamine HCl 100 MG DAILY 11/09 1452 AC 11/12 PO 0843 Tramadol HCl 50 MG Q12P PRN 11/09 1845 AC 11/12 PO 0841 Trazodone HCl 100 MG 2200 11/09 2200 AC 11/11 PO 2124 Trazodone HCl 12.5 MG QPM 05/17 2100 AC 11/11 PO 2124 Last 24 Hrs of Lab/Manny Results Last 24 Hrs of Labs/Mics: Laboratory Tests 11/12/17 0926: Anion Gap 8, Estimated GFR 16 L, BUN/Creatinine Ratio 16.3 Orders CIWA Score (last 24 hrs): 0 Assessment/Plan Assessment: 67 YO M smoker (half a pack/day since the age of 19) with PMH of Atrial fibrillation on Eliquis, HTN, HLD, HFpEF, GERD, COPD/obstructive sleep apnea, CKD stage IV, alcohol dependency, alcohol withdrawal seizures, anxiety, DM, CAD, mitral regurgitation status post MVR, 2010 with a Maze procedure, Hepatitis C status post treatment, staph aureus endocarditis, Waldenstrm's macroglobulinemia, Colon/rectal cancer (status post surgery), Prostate cancer( status post radiation), BPH and L BKA (wheelchair bound) presented to ED with with chief complaint of visual hallucination, nausea, dizziness and shortness of breath since yesterday. We are following the patient for following problems: Alcohol detox: -We will keep the patient on CIWA protocol and we will decrease his ativan to 1.0mg Q6 hourly with plans to taper more tomorrow. -Supplemental thiamine, folic acid and vitamin B12 -Zofran for nausea and vomiting as needed -Follow pain pathway to treat pain as needed -Seizure precautions -Fall precautions -His CIWA this morning was 0 Acute on chronic kidney injury:(improved) - He reports a history of being diagnosed with urinary retention at [facility]. Apparently, he had a bladder scan that showed a large postvoid residual. However, when the Kaiser catheter or specifically the straight cath was performed, no urine was found. Nephrology to review records at [facility]. 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 -Acute kidney injury is probably due to dehydration and patient was using Lasix. -Will encourage patient to drink orally. -Avoid nephrotoxic medications -Check input and output -Holding his lasix -His creatinine is is worse today at 3.8, we will restart him on fluids normal saline at a rate of 75 mL per hour -We placed patient from the renal dialysis diet to a consistent carbohydrate 3 diet for his diabetes is a 2 g sodium limits. The patient has no issues with his potassium and as such does not have to be limited. -renal USG to rule out obstructive uropathy, negative Elevated anion gap:(resolved) -Probably due to acute on chronic kidney injury Thrombocytopenia: -Labs could not be drawn today for the CBC, we'll attempt to draw tomorrow. History of hypertension hyperlipidemia: -We will continue his metoprolol and amlodipine -Continue hydralazine 25 mg 3 times a day -Continue Lipitor History of smoking: -Smoking cessation counseling -Continue nicotine patch as needed History of diabetes: -Accu-Cheks -Diabetic diet -Insulin level levemir 16 units twice a day -Insulin NovoLog according to sliding scale History of GERD: -Continue omeprazole History of CAD and disastolic CHF: -Continue aspirin -Holding his lasix due to kidney injury H/O A.fib on anticoagulation: -Continue eliquis DVT prophylaxis: Mechanical and patient already on Eliquis CODE STATUS: Full code Problem List: 1. [id number] kidney injury 2. Alcohol withdrawal Pain Ratin Pain Location: abdominal pain Pain Goal: Pain 4 or less Pain Plan: prn Tomorrow's Labs & Rationales: alicia Jones MD,Amir 11/12/17 1230: Attending MD Review Statement Attending Statement Attending MD Statement: examined this patient, discuss w/resident/PA/STOCK ROLLER, agreed w/resident/PA/STOCK ROLLER, reviewed EMR data (avail), discussed with nursing Attending Assessment/Plan: Overall doing well, symtpoms better controlled. cont CIWA protocol, ativan taper --likely d/c in next 24-36 hrs --rest of the plan as per resident's note
[2017-11-12 14:46] VITALS: BP 118/70
[2017-11-12 21:53] VITALS: BP 130/90
[2017-11-13 06:22] VITALS: BP 164/96
--- NOTE | 2017-11-13 07:08 | PN- Housestaff ---
Subjective Follow-up For: Alcohol withdrawal Acute on chronic kidney injury (improving) Mild hyponatremia Subjective: No overnight events. Patient remained afebrile overnight. Seen and examined this morning. He denied any chest pain, short of breath, nausea, vomiting, lightheadedness, palpitation and dysuria. Patient reported having intermittent abdominal pain although he is tolerating food. Possibly due to his incisional hernia. Although there is no obstruction. He should also reported having intermittent cough and sometimes he brings up mucus to yellow color phlegm. We are going to discharge the patient today. He'll follow his primary care physician and explosives detonator in a week. He was advised to follow [facility] for her codependency. Review of Systems Constitutional: Denies: chills, fever, weakness. EENTM: Reports: no symptoms. Cardiovascular: Denies: chest pain, orthopena, palpitations. Respiratory: Reports: cough, sputum production. Denies: short of breath. Gastrointestinal: Reports: abdominal pain. Denies: constipation, diarrhea, nausea, vomiting. Genitourinary: Reports: no symptoms. Neurological/Psychological: Reports: no symptoms. Objective Last 24 Hrs of Vital Signs/I&O Vital Signs Date Time Temp Pulse Resp B/P B/P Pulse O2 O2 Flow FiO2 Mean Ox Delivery Rate 11/13 0813 68 158/90 11/13 0813 68 158/90 11/13 0812 68 158/90 11/13 0622 99.0 60 20 164/96 95 Room Air 11/12 2231 130/90 11/12 2153 97.9 74 20 130/90 97 Room Air 11/12 2014 98 Room Air 11/12 1446 98.3 62 18 118/70 94 11/12 0904 98 Room Air Intake & Output 11/13 1600 11/13 0800 11/13 0000 Intake Total Output Total 1400 801 Balance -1400 -801 Output, Stool 1 Output, Urine 1400 800 Physical Exam General Appearance: Alert, Oriented X3, Cooperative Skin Temp/Moisture Exam: Warm/Dry Sepsis Skin Exam (color): Normal for Ethnicity HEENT: Atraumatic, PERRLA, EOMI Neck: Supple Cardiovascular: Normal S1, Normal S2 Lungs: b/l expiratory wheezing and decreased breath sounds. Abdomen: Soft, incisional hernia Neurological: Normal Speech, Normal Tone, left leg BKA, Right leg 5/5 Extremities: No Edema Assessment/Plan Assessment: 67 YO M smoker (half a pack/day since the age of 19) with PMH of Atrial fibrillation on Eliquis, HTN, HLD, HFpEF, GERD, COPD/obstructive sleep apnea, CKD stage IV, alcohol dependency, alcohol withdrawal seizures, anxiety, DM, CAD, mitral regurgitation status post MVR, 2010 with a Maze procedure, Hepatitis C status post treatment, staph aureus endocarditis, Waldenstrm's macroglobulinemia, Colon/rectal cancer (status post surgery), Prostate cancer( status post radiation), BPH and L BKA (wheelchair bound) presented to ED with with chief complaint of visual hallucination, nausea, dizziness and shortness of breath since yesterday. We are following the patient for following problems: Alcohol detox: -We will keep the patient on CIWA protocol and we will decrease his ativan to 1.0mg Q8 hourly with bhanu. Patient was advised to take 0.5 mg today evening and tomorrow he will take 0.5 mg twice a day and then discontinue. -Supplemental thiamine, folic acid and vitamin B12 -Zofran for nausea and vomiting as needed -Follow pain pathway to treat pain as needed -His CIWA this morning was 0 -Patient is likely stable and his CIWA remained low. We are going to discharge him today and he will complete his detox tomorrow. Acute on chronic kidney injury:(improved) - He reports a history of being diagnosed with urinary retention at [facility]. Apparently, he had a bladder scan that showed a large postvoid residual. However, when the [facility] catheter or specifically the straight cath was performed , no urine was found. Nephrology to review records at [facility]. 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 -His acute on chronic kidney injury possibly due to dehydration and he was using Lasix. -Will encourage patient to drink orally. -Avoid nephrotoxic medications -Check input and output -Hospital stay his Lasix was discontinued. Patient was advised to resume his Lasix 2 days after the discharge. -Ultrasound is negative for obstructive uropathy -Patient was instructed to follow BEP after the discharge. Patient was instructed to follow nephrology as outpatient. Elevated anion gap:(resolved) -Probably due to acute on chronic kidney injury Thrombocytopenia: -Follow-up CBC today -Today his platelet count is 95. Mild hyponatremia: -Yesterday sodium was 129 -Today his sodium level is 135. Patient is asymptomatic. History of hypertension hyperlipidemia: -Patient reported that his metoprolol dose has been changed to 50 mg daily and amlodipine dose has been decreased from 10 to 5 mg daily. -Continue hydralazine 25 mg 3 times a day -Continue Lipitor History of smoking: -Smoking cessation counseling -Continue nicotine patch as needed History of diabetes: -Accu-Cheks -Diabetic diet -Insulin level levemir 16 units twice a day. We will continue the same regimen as his blood glucose is better controlled on this. Previously he was taking 20 units twice a day at home but as his blood sugar level is controlled 16 units, we will continue it after the discharge. -Insulin Novolog according to sliding scale. History of GERD: -Continue omeprazole History of CAD and disastolic CHF: -Continue aspirin -She was instructed to resume his Lasix 2 days after the discharge. H/O A.fib on anticoagulation: -Eliquis dose has been changed to 2.5 mg twice a day as his GFR has been decreased. DVT prophylaxis: Mechanical and patient already on Eliquis CODE STATUS: Full code Problem List: 1. Alcohol withdrawal 2. [id number] kidney injury Pain Ratin Pain Location: none Pain Goal: Remain pain free Pain Plan: pain pathway Tomorrow's Labs & Rationales: none
[2017-11-13 08:00] VITALS: BP 158/90
[2017-11-13 08:13] VITALS: BP 158/90
[2017-11-13 08:17] LABS: ABSOLUTE BASOPHIL COUNT 0 /CUMM (0.0-0.2); ABSOLUTE EOSINOPHIL COUNT 0.1 /CUMM (0.0-0.7); ABSOLUTE GRANULOCYTE CT 4.4 /CUMM (1.4-6.5); ABSOLUTE LYMPH COUNT 0.2 /CUMM (1.2-3.4); ABSOLUTE MONOCYTE COUNT 0.5 /CUMM (0.10-0.60); BASOPHIL % 0 % (0.0-2.0); EOSINOPHIL % 1.4 % (0-5); GRANULOCYTE % 85.4 % (42.2-75.2); MEAN CORPUSCULAR HGB 31.7 PG (27.0-31.0); MEAN CORPUSCULAR HGB CONC 34.2 G/DL (33.0-37.0); MEAN CORPUSCULAR VOLUME 92.7 FL (80.0-94.0); MEAN PLATELET VOLUME 8.3 FL (7.4-10.4); RBC DISTRIBUTION WIDTH 18.1 % (11.5-14.5); RED BLOOD CELL CT 3.45 /CUMM (4.70-6.10); WHITE BLOOD CELL COUNT 5.1 /CUMM (4.8-10.8)
--- NOTE | 2017-11-13 09:01 | Patient Discharge Instructions ---
Discharge Instructions General Discharge Information You were seen/treated for: Alcohol withdrawal Acute on chronic kidney injury Mild hyponatremia Watch for these problems: Altered mental status, chest pain, dysuria, anxiety, nausea, vomiting and abdominal pain. If you experience any of these symptoms please come to ED or call to pcp. Special Instructions: Follow up with pcp in one week. Follow up with nephrology in one week. Follow up with Manny RICE for alcohol dependency. Follow up with your fire prevention engineer in one week. Resume your Lasix 2 days after the discharge. During hospital stay Lasix was discontinued because of acute on chronic kidney injury. Check BEP before going for appointment. Diet Recommended Diet: Diabetic Activity Activity Self Limited: Yes Acute Coronary Syndrome Inclusion Criteria At DC or during hospital stay patient has or had the following: ACS DIAGNOSIS No Discharge Core Measures Meds if any: Prescribed or Continued at Discharge Meds if any: NOT Prescribed or Continued at Discharge Congestive Heart Failure Inclusion Criteria At DC or during hospital stay patient has or had the following: CHF DIAGNOSIS No Discharge Core Measures Meds if any: Prescribed or Continued at Discharge Meds if any: NOT Prescribed or Continued at Discharge Cerebrovascular accident Inclusion Criteria At DC or during hospital stay patient has or had the following: CVA/TIA Diagnosis No Discharge Core Measures Meds if any: Prescribed or Continued at Discharge Meds if any: NOT Prescribed or Continued at Discharge Venous thromboembolism Inclusion Criteria VTE Diagnosis No VTE Type NONE VTE Confirmed by (Test) NONE Discharge Core Measures - Per Current guidelines, there needs to be overlap - treatment for the first 5 days of Warfarin therapy. - If discharged on Warfarin prior to 5 days of - overlap therapy, the patient will need to be - assessed for post discharge needs including - *Post discharge parental anticoagulation - *Warfarin and/or parental anticoagulation education - *Follow up date to check INR post discharge At least 5 days overlap therapy as Inpatient No Meds if any: Prescribed or Continued at Discharge Note: Overlap Therapy is Warfarin and Anticoagulant Meds if any: NOT Prescribed or Continued at Discharge
[2017-11-13 09:36] LABS: PLATELET COUNT 95 /CUMM (130-400)
[2017-11-13] MEDS ORDERED: ATIVAN0.5 M1 PO ×3 (11:20→12:25)
--- NOTE | 2017-11-13 11:46 | PN- Att Addend ---
Attending Addendum Attending Brief Note Patient seen and examined. Plan of care discussed with the medical team and the patient. Available lab work and radiology test reports were reviewed. Patient feels better and denies any difficulty breathing chest pain fever chills nausea vomiting or diarrhea. Exam: General: Patient awake alert oriented without any distress; minimal tremors noted CVS: S1 plus S2 without any murmur or gallops Chest: Few scattered crepitation without any wheeze. There is no respiratory distress. Abdomen: Soft non-tender, bowel sound present, no guarding or rebound BLOCK CAPTAIN: Awake alert oriented without any focal neuro deficit and follows commands appropriately; has mild bilateral hand tremors Extremities: No edema; no clubbing or cyanosis noted; left BKA noted Assessment * Alcohol abuse alcohol withdrawal * History of atrial fibrillation on eliquis * History of hypertension * History of heart failure with preserved ejection fraction * History of COPD * History of for obstructive sleep apnea * Chronic kidney disease stage IV * Thrombocytopenia likely due to alcohol abuse * Acute renal failure in setting of chronic renal failure- his creatinine is 3.8 which is slightly above his baseline of 3.3 Plan * Decrease Ativan to 0.5 mg 3 times a day today and then 0.5 twice a day tomorrow and then stop. * Continue Levemir and sliding scale and monitor Accu-Checks * Case discussed with high school social studies tutor * Encourage oral fluid intake; hold Lasix for 2 more days; patient should have a BP check as outpatient later this week * Patient can be discharged home today; he agrees to follow with IOP Current Medications Sig/Avery Start time Last Medication Dose Route Stop Time Status Admin Acetaminophen 650 MG Q6P PRN 11/09 1500 AC PO Acetaminophen 650 MG Q4P PRN 11/09 1500 AC 11/10 PO 1355 Albuterol Sulfate 3 ML BID 11/10 1057 AC 11/13 INH 0947 Amlodipine Besylate 5 MG DAILY 11/10 0900 AC 11/13 PO 0813 Apixaban 2.5 MG BID 11/09 2100 AC 11/13 PO 0812 Aspirin Buffered 81 MG DAILY 11/09 1452 AC 11/13 PO 0812 Budesonide/ 2 PUF BID 11/09 1451 AC 11/13 Formoterol Fumarate INH 0811 Ferrous Sulfate 325 MG TID 11/09 1456 AC 11/13 PO 0812 Folic Acid 1 MG DAILY 11/09 1452 AC 11/13 PO 0812 Gabapentin 600 MG TID 11/09 1452 AC 11/13 PO 0812 Hydralazine HCl 25 MG TID 11/09 1451 AC 11/13 PO 0812 Insulin Aspart 0 TIDAC 11/10 0800 AC SC Insulin Detemir 16 UNITS BID 11/09 1455 AC 11/13 SC 0811 Ipratropium [place] 2.5 ML BID 11/10 1058 AC 11/13 INH 0948 Lorazepam 1 MG Q8P PRN 11/13 0830 AC PO Lorazepam 2 MG ONCE ONE 11/12 2130 DC 11/12 PO 11/12 213 222 Lorazepam 1 MG Q6 11/12 1200 DC 11/13 PO 0613 Lorazepam 1.5 MG Q6 11/10 1200 DC 11/12 PO 0523 Lorazepam 0 Q1P PRN 11/09 1500 AC 11/09 IV 2330 Magnesium Hydroxide 30 ML DAILY NEEDED PRN 11/09 1500 AC 11/13 PO 0812 Metoprolol Succinate 50 MG DAILY 11/09 1745 AC 11/13 PO 0813 Nicotine 14 MG DAILY 11/09 1457 AC 11/13 TOP 0813 Omeprazole 20 MG DAILY AC 11/09 1455 AC 11/13 PO 0613 Sertraline HCl 50 MG 0800 11/10 0800 AC 11/13 PO 0812 Sodium Bicarbonate 650 MG BID 11/10 2100 AC 11/13 PO 0813 Sodium Chloride 1,000 ML Q13H 11/12 1315 DC IV 11/13 0214 Tamsulosin HCl 0.4 MG 1700 11/09 1700 AC 11/12 PO 1759 Thiamine HCl 100 MG DAILY 11/09 1452 AC 11/13 PO 0813 Tramadol HCl 50 MG Q12P PRN 11/09 1845 AC 11/12 PO 0841 Trazodone HCl 100 MG 2200 11/09 2200 AC 11/12 PO 2227 Trazodone HCl 12.5 MG QPM 11/09 2100 AC 11/12 PO 2229 Laboratory Tests 11/13/17 0735: Anion Gap 12, Estimated GFR 16 L, BUN/Creatinine Ratio 16.8, CBC w Diff MAN DIFF ORDERED, RBC 3.45 L, MCV 92.7, MCH 31.7 H, MCHC 34.2, RDW 18.1 H, MPV 8.3, Gran % 85.4 H, Lymphocytes % 3.5 L, Monocytes % 9.7 H, Eosinophils % 1.4 , Basophils % 0, Absolute Granulocytes 4.4, Segmented Neutrophils 80 H, Band Neutrophils 7 H, Absolute Lymphocytes 0.2 L, Lymphocytes 2 L, Monocytes 7, Absolute Monocytes 0.5, Eosinophils 2, Absolute Eosinophils 0.1, Basophils 1, Absolute Basophils 0, Metamyelocytes 1, Platelet Estimate DECREASED, Anisocytosis 1+ 11/12/17 0926: Anion Gap 8, Estimated GFR 16 L, BUN/Creatinine Ratio 16.3, WBC Cancelled, RBC Cancelled, Hgb Cancelled, Hct Cancelled, MCV Cancelled, MCH Cancelled, MCHC Cancelled, RDW Cancelled, Plt Count Cancelled, MPV Cancelled 11/11/17 0831: RBC 3.45 L, MCV 91.5, MCH 30.2, MCHC 33.0, RDW 18.1 H, MPV 7.6, Gran % 81.8 H , Lymphocytes % 6.4 L, Monocytes % 7.8, Eosinophils % 3.7, Basophils % 0.3, Absolute Granulocytes 3.0, Absolute Lymphocytes 0.2 L, Absolute Monocytes 0.3, Absolute Eosinophils 0.1, Absolute Basophils 0 11/11/17 0735: Anion Gap 9, Estimated GFR 20 L, BUN/Creatinine Ratio 14.5 Vital Signs Date Time Temp Pulse Resp B/P B/P Pulse O2 O2 Flow FiO2 Mean Ox Delivery Rate 11/13 0952 92 Room Air 11/13 0813 68 158/90 11/13 0813 68 158/90 11/13 0812 68 158/90 11/13 0800 68 16 158/90 11/13 0800 94 11/13 0622 99.0 60 20 164/96 95 Room Air 11/12 2231 130/90 11/12 2153 97.9 74 20 130/90 97 Room Air 11/12 2015 98 Room Air 11/12 1446 98.3 62 18 118/70 94 Intake & Output 11/13 1600 11/13 0800 11/13 0000 Intake Total Output Total 550 1400 801 Balance -550 -1400 -801 Output, Stool 1 Output, Urine 550 1400 800 Total time spent in preparation for discharge plan, patient education, and CMR preparation was 35 minutes.
[2017-11-13] MEDS ORDERED: TOPROL XL50 M1 PO (12:17)
[2017-11-13] MEDS ORDERED: ELIQUIS2.5 M1 PO ×2 (12:17→13:02)
[2017-11-13] MEDS ORDERED: NORVASC5 M1 PO (12:17)
[2017-11-13] MEDS ORDERED: FUROSEMIDE40 M1 PO (12:17)
--- NOTE | 2017-11-13 12:26 | Discharge Summary ---
Visit Information Visit Dates Admission Date: 11/09/17 Discharge Date: 11/13/17 Hospital Course Course Attending Physician: Ankush ARCEO,Chinmay Primary Care Physician: Jonathan Oliveira MD Hospital Course: 67 YO M smoker (half a pack/day since the age of 19) with PMH of Atrial fibrillation on Eliquis, HTN, HLD, HFpEF, GERD, COPD/obstructive sleep apnea, CKD stage IV, alcohol dependency, alcohol withdrawal seizures, anxiety, DM, CAD, mitral regurgitation status post MVR, 2010 with a Maze procedure, Hepatitis C status post treatment, staph aureus endocarditis, Waldenstrm's macroglobulinemia, Colon/rectal cancer (status post surgery), Prostate cancer( status post radiation), BPH and L BKA (wheelchair bound) presented to ED with with chief complaint of visual hallucination, nausea, dizziness and shortness of breath since yesterday. ED course: Vitals: Temperature 97.4, pulse 68, respiratory 24, blood pressure 138/78, oxygen saturation 96% on room air Labs: WBC count 4.2, hemoglobin 11.1, hematocrit 33.0, platelet count 161, sodium 140, potassium 4.1, BUN 47, creatinine 4.0, anion gap 17, GFR 15, BUNs/ creatinine ratio 11.8, glucose 103, calcium 8.8, magnesium 2.0, AST 70, AST 12, troponin 0.08, proBNP 2500 Alcohol detox: Patient was admitted for alcohol detox. He was placed on CIWA protocol and he received 2 mg Ativan every 6 hourly. He received vitamin supplementation thiamine, folic acid and B12. Patient also received Zofran as needed for nausea and vomiting. Later on patient's condition improved and he was placed on Ativan tapering dose. Patient was discharged with 3 more doses of Ativan that he will take after the discharge to complete his alcohol detox. Patient was instructed to follow his primary care physician and [facility] for alcohol dependency. Acute on chronic kidney injury: On admission patient was found to have acute on chronic kidney injury. Patient had stage IV chronic kidney disease. His acute on chronic injury was possibly due to prerenal etiology, dehydration. Nephrotoxic medications were provided. His Lasix was discontinued. He was given gentle IV hydration. Obstructive uropathy was excluded with renal ultrasound. Nephrology consultation was obtained and recommendations were followed. Before discharge his creatinine level was close to his baseline. Patient was instructed to check his BP before its going to his rehabilitation medicine physician. Patient was instructed to resume his Lasix 2 days after the discharge. Elevated anion gap: Probably due to acute on chronic kidney injury. His anion gap improved with gentle IV hydration as his kidney injury improved. Thrombocytopenia: Patient had thrombocytopenia possibly due to alcohol abuse. His platelet count was 161 on admission. His platelet count was monitored. Mild hyponatremia: Possibly hypovolemic hyponatremia due to dehydration. Patient remained asymptomatic. With gentle IV hydration patient's sodium level improved. History of hypertension and hyperlipidemia: Patient reported that his metoprolol has been changed recently to 50 mg daily from 25 mg and his amlodipine was decreased from 10 mg to 5 mg daily. We continued his hydralazine 25 mg 3 times a day. Continued his Lipitor. During hospital stay his blood pressure remained under control. We continued same regimen after the discharge. History of smoking: Smoking cessation counseling was done and patient was given nicotine patch as needed. History of diabetes: Accu-Cheks were checked. Patient was placed on insulin NovoLog according to sliding scale. During hospital stay Levemir 16 units twice a day per continued although at home he was taking 20 units twice a day. His blood glucose remained under control during hospital stay. For continued same regimen (Levemir 16 units twice a day) after the discharge rather than 20 units twice a day. History of GERD: We continued omeprazole. History of CAD and disastolic CHF: Continued his aspirin and patient was instructed to resume his Lasix to take after the discharge. H/O A.fib on anticoagulation: Before admission patient was taking Eliquis 5 mg twice a day but as his GFR decreased so dose was adjusted according to GFR. Patient was started on 2.5 mg eliquis twice a day. We discharged the patient with 2.5 mg Eliquis twice a day. DVT prophylaxis: Mechanical and patient already on Eliquis CODE STATUS: Full code Allergies: Coded Allergies: NO KNOWN ALLERGIES (UNKNOWN 12/05/16) Pertinent Lab Results: Chest x-ray on 11/09/2017; IMPRESSION: No evidence for acute disease. Stable cardiomegaly. Renal ultrasound on 11/10/2017: IMPRESSION: Bilateral normal size kidneys showing features consistent with medical renal disease. No sonographic evidence of obstructive uropathy. WBC count 5.1, hemoglobin 11.0, Hematocrit 32.0, platelet count 95, sodium 135, potassium 4.6, BUN 16, creatinine 3.8, BUNs/creatinine ratio 16.8, Disposition Summary Disposition Principal Diagnosis: Alcohol withdrawal Acute on chronic kidney injury Mild hyponatremia Additional Diagnosis: History of hypertension and hyperlipidemia History of smoking History of diabetes History of GERD History of CAD and diastolic CHF History of A. fib on anticoagulation Discharge Disposition: home health services Discharge Instructions General Discharge Information Code Status: Full Code Patient's Diet: Diabetic diet Patient's Activity: Self-limited Follow-Up Instructions/Appts: Follow up with pcp in one week. Follow up with nephrology in one week. Follow up with Manny [facility] for alcohol dependency. Follow up with your rehabilitation medicine physician in one week. Resume your Lasix 2 days after the discharge. During hospital stay Lasix was discontinued because of acute on chronic kidney injury. Check BEP before going for appointment. Medications at Discharge Discharge Medications: Stop taking the following medications: Apixaban (Eliquis) 5 MG TABLET ORAL TWICE DAILY Qty = 28 Prednisone (Prednisone) 10 MG TABLET ORAL DAILY Qty = 20 Continue taking these medications: Sertraline HCl (Sertraline HCl) 50 MG TABLET 1 Tablet ORAL DAILY @8 AM Qty = 14 Comments: Last Taken:11/13/17 Time:8:12 AM Trazodone HCl (Trazodone HCl) 100 MG TABLET 1 Tablet ORAL 2200 Qty = 14 Comments: NOT GIVEN THIS ADMISSION Budesonide/Formoterol Fumarate (Symbicort 160-4.5 Mcg Inhaler) 160 MCG-4.5 MCG/ ACTUATION HFA.AER.AD 2 Puff Inhale through mouth TWICE DAILY Qty = 1 Comments: Last Taken:11/13/17 Time:8:11 AM Hydralazine HCl (Hydralazine HCl) 25 MG TABLET 1 Tablet ORAL THREE TIMES DAILY Qty = 42 Comments: Last Taken:11/13/17 Time:8:12 AM Aspirin (Ecotrin*) 81 MG TABLET.DR 1 Tablet ORAL DAILY Qty = 14 Comments: Last Taken:11/13/17 Time: 08:12 AM Gabapentin (Gabapentin) 300 MG CAPSULE 2 Capsule ORAL THREE TIMES DAILY Qty = 84 Comments: Last Taken:11/13/17 Time: 08:12 AM Folic Acid (Folic Acid) 1 MG TABLET 1 Tablet ORAL DAILY Qty = 14 Comments: Last Taken:11/13/17 Time:8:12 AM Thiamine HCl (Vitamin B-1) 100 MG TABLET 1 Tablet ORAL DAILY Qty = 14 Comments: Last Taken:11/13/17 Time:8:13 AM Insulin Detemir (Levemir Flextouch) 100 UNIT/ML (3 ML) INSULN.PEN 16 Units Inject into fatty tissue DAILY Qty = 3 Comments: Last Taken:11/13/17 Time:8:11 AM 16 UNITS GIVEN THIS MORNING Tamsulosin HCl (Flomax) 0.4 MG CAP.ER.24H 1 Capsule ORAL 5 PM Comments: Last Taken:11/12/17 Time:6 PM Trazodone HCl (Trazodone HCl) 50 MG TABLET 0.25 Tablet ORAL Every night Comments: Last Taken:11/12/17 Time:10:30 AM Ipratropium/Albuterol Sulfate (Iprat-Albut 0.5-3(2.5) MG/3 Ml) 0.5 MG-3 MG (2.5 MG BASE)/3 ML AMPUL.NEB 1 Inhalation ORAL TWICE DAILY Omeprazole (Omeprazole) 20 MG CAPSULE.DR 1 Capsule ORAL DAILY Comments: Last Taken:11/13/17 Time:6:13 AM Ferrous Sulfate (Ferrous Sulfate) 325 MG (65 MG IRON) TABLET 1 Tablet ORAL DAILY Comments: Last Taken:11/13/17 Time:8:12 AM Acetaminophen (Pain Relief) 325 MG TABLET 2 Tablet ORAL Q4H as needed for PAIN/TEMP/>101 Comments: Last Taken:11/10/17 Time:13:55 PM Acetaminophen (Acephen) 650 MG SUPP.RECT 1 SUPPOSITORY RECTALLY Q4H as needed for PAIN/TEMP>101 Comments: NOT GIVEN THIS ADMISSION Magnesium Hydroxide (Milk Of Magnesia) 400 MG/5 ML ORAL.SUSP 30 Milliliters ORAL DAILY as needed for NO BM IN 3 DAYS Comments: Last Taken:11/13/17 Time:8:12 AM Bisacodyl (Dulcolax) 10 MG SUPP.RECT 1 Suppository RECTAL DAILY as needed for CONSTIPATION Comments: NOT GIVEN THIS ADMISSION Na Phos,M-B/Na Phos,Di-Ba (Fleet Enema) 19 GRAM-7 GRAM/118 ML ENEMA 1 Enema RECTAL DAILY as needed for CONSTIPATION Comments: NOT GIVEN THIS ADMISSION Albuterol Sulfate (Proair Hfa) 90 MCG HFA.AER.AD 2 PUFF Inhale through mouth Q6H as needed for RESP. Comments: NOT GIVEN THIS ADMISSION Nicotine (Nicotine Patch) 14 MG/24 HOUR PATCH.TD24 14 Milligram On the skin DAILY Qty = 30 Comments: Last Taken:11/13/17 Time:8:13 AM Start taking the following new medications: Lorazepam (Ativan) 0.5 MG TABLET 1 Tablet ORAL DAILY Qty = 3 No Refills Instructions: Take one pill tonight 11/13/17. Take one pill twicw a day tomorrow. 11/14/17 Then stop it The following medications have been changed: Old: Amlodipine Besylate (Norvasc) 10 MG TABLET 1 Tablet ORAL DAILY Qty = 14 New: Amlodipine Besylate (Norvasc) 5 MG TABLET 1 Tablet ORAL DAILY Qty = 30 Comments: Last Taken:11/13/17 Time:08:13 AM Old: Metoprolol Succ XL (Toprol XL) 25 MG TAB 1 Tablet ORAL DAILY Qty = 14 New: Metoprolol Succ XL (Toprol Xl) 50 MG TAB 1 Tablet ORAL DAILY Qty = 30 Comments: Last Taken: 11/13/17 Time: 8:13 AM Old: Furosemide (Furosemide) 40 MG TABLET 1 Tablet ORAL DAILY Qty = 90 New: Furosemide (Furosemide) 40 MG TABLET 1 Tablet ORAL DAILY Qty = 90 Instructions: START AFTER 2 DAYS OF DISCHARGE Comments: NOT GIVEN IN HOSPITAL Old: Apixaban (Eliquis) 2.5 MG TABLET 1 Tablet ORAL TWICE DAILY Qty = 60 New: Apixaban (Eliquis) 2.5 MG TABLET 1 Tablet ORAL TWICE DAILY Qty = 60 Instructions: DOSE ADJUSTED ACCORDING TO GFR. Comments: Last Taken:11/13/17 Time:8:12 AM Copies To: Brian ARCEO,Shorty Carpenter; Tee ARCOE,Jonathan Edgar DOSE ADJUSTED ACCORDING TO GFR. Comments: Last Taken:11/13/17 Time:8:12 AM
== END 2017-11-13 13:07 | DRG 683 ==
LOC: ERH 04:25 → ERHI 12:31 → 2NB 12:31 → ENRESERV 14:59 → ENTRNSPT 16:05 → EDTRNSPT 16:07 → EDTRNSPTSTS 16:07 → CMPTRNSPT 16:24 → 2NB 16:25 → CMPTRNSPT 16:36 → ENPENDDIS 11-13 12:39 → ENTRNSPT 11-13 12:51 → EDTRNSPT 11-13 12:59 → EDTRNSPTSTS 11-13 12:59 → 2NB 11-13 13:07 → CMPTRNSPT 11-13 13:18
PROVIDERS: Emergency Medicine; Student in an Organized Health Care Education/Training Program
DX: N17.9 Acute kidney failure, unspecified (principal); F10.239 Alcohol dependence with withdrawal, unspecified; E11.22 Type 2 diabetes mellitus with diabetic chronic kidney disease; C88.0 Waldenstrom macroglobulinemia; E11.8 Type 2 diabetes mellitus with unspecified complications; I13.0 Hypertensive heart and chronic kidney disease with heart failure and stage 1 through stage 4 chronic kidney disease, or unspecified chronic kidney disease; I50.32 Chronic diastolic (congestive) heart failure; E87.1 Hypo-osmolality and hyponatremia; N18.4 Chronic kidney disease, stage 4 (severe); I48.91 Unspecified atrial fibrillation; E66.9 Obesity, unspecified; Z68.32 Body mass index [BMI] 32.0-32.9, adult; Z89.512 Acquired absence of left leg below knee; Y90.3 Blood alcohol level of 60-79 mg/100 ml; Z79.4 Long term (current) use of insulin; E78.5 Hyperlipidemia, unspecified; K21.9 Gastro-esophageal reflux disease without esophagitis; Z79.01 Long term (current) use of anticoagulants; G47.33 Obstructive sleep apnea (adult) (pediatric); J44.9 Chronic obstructive pulmonary disease, unspecified; F41.9 Anxiety disorder, unspecified; I25.10 Atherosclerotic heart disease of native coronary artery without angina pectoris; I34.0 Nonrheumatic mitral (valve) insufficiency; F17.210 Nicotine dependence, cigarettes, uncomplicated; B18.2 Chronic viral hepatitis C; Z85.038 Personal history of other malignant neoplasm of large intestine; N40.0 Benign prostatic hyperplasia without lower urinary tract symptoms; Z89.612 Acquired absence of left leg above knee; Z99.3 Dependence on wheelchair; Z85.46 Personal history of malignant neoplasm of prostate; Z79.82 Long term (current) use of aspirin; Z79.52 Long term (current) use of systemic steroids; Z98.1 Arthrodesis status; F32.9 Major depressive disorder, single episode, unspecified; D64.9 Anemia, unspecified; Z90.49 Acquired absence of other specified parts of digestive tract
CPT/HCPCS: 2NBP; 36415; 36592; 71045; 76775; 82436; 93005; 93010; 96374; G0480; J3490